=== PATIENT | female | born 1955 | race Caucasian/White ===

== ENCOUNTER 2017-04-14 16:52 | Observation (INO) ==
--- NOTE | 2017-04-14 17:38 | Emergency Department Note ---
Disposition Clinical Impression: Hyperkalemia Renal failure (ARF), acute on chronic Qualifiers: Acute renal failure type: unspecified Chronic kidney disease stage: unspecified stage Qualified Code(s): N17.9 - Acute kidney failure, unspecified Anemia Qualifiers: Anemia type: due to chronic kidney disease Chronic kidney disease stage: unspecified stage Qualified Code(s): N18.9 - Chronic kidney disease, unspecified Disposition: Admitted As Inpatient Condition: Fair Referrals: NO,PCP [Non-Partnered Physician] - Forms: ED Satisfaction Letter Female Urogenital HPI - General Chief complaint: ED Urogenital-Female Stated complaint: "UTI" Time Seen by Provider: 04/14/17 17:11 Source: patient, EMS Limitations: no limitations Nursing Notes Reviewed: Yes Vital Signs Reviewed: Yes - History of Present Illness HPI Narrative: Patient is 10 days of dysuria and urinary frequency and dark and bad smelling urine and was started on Bactrim and is finishing a course right now but does not feel any better. Was sent in by the home health nurse. She denies any fevers or vomiting or confusion. No blood in the urine or stool. No vaginal bleeding or discharge. She has been using Bactrim without adequate improvement. She does have bilateral back pain but worse on the right, she denies any abdominal pain. I did review the previous record. Social history: Does use home oxygen - Related Data Home Medications Medication Instructions Recorded Confirmed Aspirin [Lo-Dose Aspirin EC] 81 mg PO DAILY 04/06/16 04/14/17 Budesonide/Formoterol 80/4.5 2 puff IH BID PRN 04/06/16 04/14/17 [Symbicort] Esomeprazole Magnesium [Nexium] 40 mg PO DAILY 04/06/16 04/14/17 Furosemide [Lasix] 40 mg PO BID 04/06/16 04/14/17 Glimepiride [Amaryl] 4 mg PO QAM 04/06/16 04/14/17 Latanoprost [Xalatan] 1 drop BOTH EYES HS 04/06/16 04/14/17 Simvastatin [Zocor] 40 mg PO HS 04/06/16 04/14/17 SitaGLIPtin [Januvia] 100 mg PO DAILY 04/06/16 04/14/17 Spironolactone [Aldactone] 25 mg PO DAILY 04/06/16 04/14/17 Albuterol Sulfate [Albuterol 2 puff IH Q4H PRN 04/14/17 04/14/17 Inhaler] Citalopram Hydrobromide 40 mg PO HS 04/14/17 04/14/17 [Citalopram HBr] Docusate [Colace] 100 mg PO DAILY 04/14/17 04/14/17 Gabapentin [Neurontin] 600 mg PO HS 04/14/17 04/14/17 Valsartan [Diovan] 80 mg PO DAILY 04/14/17 04/14/17 Allergies Allergy/AdvReac Type Severity Reaction Status Date / Time acetaminophen [From Vicodin] AdvReac Nausea Verified 11/30/15 13:29 hydrocodone [From Vicodin] AdvReac Nausea Verified 11/30/15 13:29 Hydromorphone [From Dilaudid] AdvReac Nausea Verified 11/30/15 13:29 Review of Systems: No blood in the urine or stool, vaginal bleeding or discharge Constitutional: No fever Vision: No blurred vision ENT: No rhinorrhea Respiratory: No cough Allergic: No allergies : No blood in urine GI: No blood in stool Hematologic: No bruising Dermatologic: No skin rash Musculoskeletal: No pain in the extremities Neuro: No numbness of the extremities Past Medical History - Past Medical History Medical history: Reports: COPD, hypertension, other Surgical history: Reports: other Psychiatric history: Reports: no psych history - Social History Smoking Status: Never smoker Smokeless Tobacco Status: No Alcohol use: Reports: none Drug use: Reports: none Physical Exam CONSTITUTIONAL: Alert and oriented X3, well-nourished, well appearing, in no apparent distress HEAD: Normocephalic; atraumatic. EYES: PERRL, no scleral icterus. NOSE: The nose is normal in appearance without rhinorrhea RESP: Normal chest excursion with respiration; breath sounds clear and equal bilaterally; no wheezes, rhonchi, or rales CARD: Regular rhythm, without murmurs, rub or gallop ABD: Non-distended; non-tender, soft,without rigidity, rebound or guarding SKIN: Normal for age and race; warm and dry; no apparent lesions Back: Normal appearance, does have bilateral CVA tenderness but worse on the right - General Limitations: no limitations General appearance: alert, in no apparent distress Course Vital Signs Temperature 98.1 F 04/14/17 16:54 Pulse Rate 78 04/14/17 16:54 Respiratory Rate 18 04/14/17 16:54 Blood Pressure 153/62 04/14/17 16:54 O2 Sat by Pulse Oximetry 99 04/14/17 16:54 Temperature 98.1 F 04/14/17 16:54 Pulse Rate 68 04/14/17 20:59 Respiratory Rate 20 04/14/17 20:59 Blood Pressure 133/56 04/14/17 20:59 O2 Sat by Pulse Oximetry 100 04/14/17 20:59 Oxygen Delivery Oxygen Delivery Nasal Cannula Urogenital-Female - MDM Narrative Medical decision making narrative: Urine catheterization will be done straight catheter urine results are pending. I do not suspect sepsis or any ureteral stone. She may have pyelonephritis. This should be treated as an outpatient. She is hemodynamically stable, alert and oriented, nontoxic in appearance. I did go back and see the patient spoke with her and her . She is reluctant to stay that my concerns for hyperkalemia. She does have an appointment with a services manager in the next several weeks. The patient will be admitted to the hospital. I did review her EKG shows sinus rhythm with a rate of 66 without evidence of hyperkalemia changes as far as the T waves or widened QRS did patient will receive dextrose and insulin and sodium bicarbonate and oral Kayexalate and will be admitted to the hospital. 2045 I did speak with the hospitalist who asked that the potassium be repeated. The IV fluids are still running so will be done at the completion of the IV fluids. This test is ordered. I did speak with Dr. Moya and he will assume care of the patient and follow-up the patient's CT scan also the disposition. Care is transferred to him at this time. 2119 - Medical Records Medical records reviewed: Yes I reviewed the patient's medical records. - Lab Data Lab results reviewed: Yes I reviewed the patient's lab results. Result diagrams: 04/14/17 18:37 04/14/17 21:08 Lab Results 04/14/17 04/14/17 04/14/17 Range/Units 17:13 18:37 18:37 WBC 7.4 (4.3-11.1) K/mcL RBC 3.20 L (3.82-4.97) M/mcL Hgb 9.3 L (11.5-15.4) g/dL Hct 31.2 L (35.3-44.9) % MCV 97.5 (83.0-100.0) fL MCH 29.1 (28.0-33.3) pg MCHC 29.8 L (31.6-35.5) g/dL RDW 12.3 (11.5-14.5) % Plt Count 129 L (140-400) K/mcL MPV 11.9 (9.4-12.4) fL Sodium 141 (136-145) mEq/L Potassium 5.9 H (3.5-4.5) mEq/L Chloride 99 (98-109) mEq/L Carbon Dioxide 37 H (19-29) mEq/L BUN 32 H (7-20) mg/dL Creatinine 1.72 H (0.57-1.11) mg/dL Est GFR ( Amer) 37 L (> 60) Est GFR (Non-Af Amer) 30 L (> 60) BUN/Creatinine Ratio 19 (6-26) Glucose 119 H (70-99) mg/dL Calculated Osmolality 300 (280-300) Calcium 9.4 (8.6-10.8) mg/dL Urine Color Yellow (Yellow) Urine Clarity Clear (Clear) Urine pH 5.5 (5.0-8.0) pH Units Ur Specific [place] 1.015 (1.010-1.025) Urine Protein Negative (Neg-Trace) mg/dL Urine Glucose (UA) Normal (Normal) mg/dL Urine Ketones Negative (Negative) mg/dL Urine Blood Negative (Negative) Urine Nitrite Negative (Negative) Urine Bilirubin Negative (Negative) Urine Urobilinogen Normal (Normal) mg/dL Ur Leukocyte Esterase Negative (Negative) Ur Culture Indicated? NO (NO) 04/14/17 Range/Units 21:08 WBC (4.3-11.1) K/mcL RBC (3.82-4.97) M/mcL Hgb (11.5-15.4) g/dL Hct (35.3-44.9) % MCV (83.0-100.0) fL MCH (28.0-33.3) pg MCHC (31.6-35.5) g/dL RDW (11.5-14.5) % Plt Count (140-400) K/mcL MPV (9.4-12.4) fL Sodium 142 (136-145) mEq/L Potassium 5.8 H (3.5-4.5) mEq/L Chloride 102 (98-109) mEq/L Carbon Dioxide 35 H (19-29) mEq/L BUN 31 H (7-20) mg/dL Creatinine 1.64 H (0.57-1.11) mg/dL Est GFR ( Amer) 39 L (> 60) Est GFR (Non-Af Amer) 32 L (> 60) BUN/Creatinine Ratio 19 (6-26) Glucose 100 H (70-99) mg/dL Calculated Osmolality 301 H (280-300) Calcium 8.9 (8.6-10.8) mg/dL Urine Color (Yellow) Urine Clarity (Clear) Urine pH (5.0-8.0) pH Units Ur Specific [place] (1.010-1.025) Urine Protein (Neg-Trace) mg/dL Urine Glucose (UA) (Normal) mg/dL Urine Ketones (Negative) mg/dL Urine Blood (Negative) Urine Nitrite (Negative) Urine Bilirubin (Negative) Urine Urobilinogen (Normal) mg/dL Ur Leukocyte Esterase (Negative) Ur Culture Indicated? (NO) - Radiology Data Radiology results reviewed: Yes I reviewed the patient's radiology results. Abdomen/Pelvis CT 04/14/17 18:03 IMPRESSION: 1. Unchanged large right diaphragmatic hernia. D/ / Kd Bell MD / Kd Bell MD Interpreting Provider: Kd Bell MD - EKG Data EKG attestation: Yes I reviewed and interpreted this EKG.
[2017-04-14 17:50] LABS: Bilirubin,Urine Negative (Negative); Blood,Urine Negative (Negative); Clarity,Urine Clear (Clear); Color,Urine Yellow (Yellow); Glucose,Urine (UA) Normal (Normal); Ketones,Urine Negative (Negative); Leukocyte Esterase,Urine Negative (Negative); Nitrite,Urine Negative (Negative); PH,Urine 5.5 pH Units (5.0-8.0); Protein,Urine Negative (Neg-Trace); Specific Gravity,Urine 1.015 (1.010-1.025); Urobilinogen,Urine Normal (Normal)
[2017-04-14 18:51] LABS: Hematocrit 31.2 % (35.3-44.9); Hemoglobin 9.3 g/dL (11.5-15.4); Mean Corpuscular HGB Conc 29.8 g/dL (31.6-35.5); Mean Corpuscular Hemoglobin 29.1 pg (28.0-33.3); Mean Corpuscular Volume 97.5 fL (83.0-100.0); Mean Platelet Volume 11.9 fL (9.4-12.4); Platelet Count 129 K/mcL (140-400); Red Cell Distribution Width 12.3 % (11.5-14.5)
[2017-04-14 19:06] LABS: Calcium 9.4 mg/dL (8.6-10.8); Potassium 5.9 mEq/L (3.5-4.5)
[2017-04-14] MEDS ORDERED: 0.9 % Sodium Chloride 1,000 ML IVC ONE (19:11)
[2017-04-14] MEDS ORDERED: 0.9 % Sodium Chloride 1,000 ML ONE (21:16)
[2017-04-14 21:28] LABS: Calcium 8.9 mg/dL (8.6-10.8); Potassium 5.8 mEq/L (3.5-4.5)
[2017-04-14] MEDS ORDERED: *HR* Dextrose 50 % in Water (Syg) 50 ML SYRINGE IVP ONE (21:52)
[2017-04-14] MEDS ORDERED: Insulin Human Regular 10 UNIT in 0.9 % Sodium Chloride 10 ML IV ONE (21:52)
--- NOTE | 2017-04-14 22:15 | Emergency Department Note ---
START Narrative - START START: This patient was signed out to me by Dr. Ge. The patient has acute kidney injury and subsequently found to have hyperkalemia. She was given intravenous fluids without much improvement. I would proceed with admission at this point. She was given Kayexalate, D50, insulin. Stable at the time of admission. She does wear oxygen at home.
[2017-04-14] MEDS ORDERED: Ondansetron 4 MG/2 ML VIAL IVP PRN (23:40)
[2017-04-14] MEDS ORDERED: Naloxone 0.4 MG/ML INJ IVP PRN (23:40)
[2017-04-14] MEDS ORDERED: Acetaminophen 325 MG TABLET PO PRN (23:40)
[2017-04-14] MEDS ORDERED: Dextrose Gel 15 GM PO PRN ×2 (23:45)
[2017-04-14] MEDS ORDERED: Gabapentin 300 MG CAPSULE PO SCH (23:45)
[2017-04-14] MEDS ORDERED: *HR* Dextrose 50 % in Water (Syg) 50 ML SYRINGE IVP PRN (23:45)
[2017-04-14] MEDS ORDERED: D5% in Water 1,000 ML IVC PRN (23:45)
[2017-04-14] MEDS ORDERED: traMADol 50 MG TABLET PO PRN (23:53)
--- NOTE | 2017-04-14 23:57 | Internal Med History&Physical ---
<Albert Cortez - Last Filed: 04/15/17 00:46> Date of Encounter: 04/15/17 Time of Encounter: 23:00 Assessment and Plan (1) Bilateral flank pain Current visit: Yes Status: Acute Patient presents with acute bilateral flank pain which she states is worse on the right side. Patient was diagnosed 10 days ago with a UTI and finished last dose of PO Bactrim today. U/A in ED is not suspicious for infection. Nephrology consult ordered. Retroperitoneal US ordered. Renal diet with daily fluid restriction of 1.5L daily ordered. Monitor I&O and daily weight. (2) Acute hyperkalemia Current visit: Yes Status: Acute Patient presents with acute hyperkalemia. Potassium level is currently 5.8, down from 5.9. Will continue Lasix PO 40 mg BID and monitor follow-up labs. Continuous cardiac telemetry ordered. (3) Dizziness Current visit: Yes Status: Acute Patient reports acute dizziness related to recent UTI. Patient also has history of chronic COPD and CHF. Will continue PO Lasix 40 mg BID. DuoNebs Q4 ordered. Supplemental O2 with continuous SpO2 monitoring ordered. Patient to be placed as falls precautions/up with assist/bed rest with bedside commode with assist status due to current dizziness. Patient instructed to use her call light and not attempt to get out of bed on her own. (4) CKD (chronic kidney disease) stage 3, GFR 30-59 ml/min Current visit: Yes Status: Chronic Patient presents with chronic kidney disease stage III with current GFR of 32. Nephrology consult ordered. Retroperitoneal US ordered. Renal diet with daily fluid restriction of 1.5L daily ordered. Monitor I&O and daily weight. (5) COPD (chronic obstructive pulmonary disease) Current visit: Yes Status: Chronic Patient presents with history of chronic obstructive pulmonary disease. Supplemental O2 ordered with titration if SPO2 less than 92%. BiPAP ordered HS. Continuous SpO2 monitoring ordered. Qualifiers: COPD type: emphysema Qualified Code(s): J43.9 - Emphysema, unspecified (6) CHF (congestive heart failure) Current visit: Yes Status: Chronic Patient presents with history of chronic congestive heart failure. Currently patient has bilateral pedal edema. Will continue PO Lasix 40 mg BID, monitor I&O , and daily weight. Fluid restriction of 1.5L daily. Qualifiers: Congestive heart failure type: unspecified congestive heart failure type Qualified Code(s): I50.9 - Heart failure, unspecified (7) Hypertension Current visit: Yes Status: Chronic Patient presents with history of chronic hypertension. Will monitor patient and vital signs. Will continue patient's Valsartan and Spironolactone. Qualifiers: Hypertension type: essential hypertension Qualified Code(s): I10 - Essential (primary) hypertension (8) Anemia Current visit: Yes Status: Chronic Patient presents with history of chronic anemia. We will order anemia workup ( folate, iron, and B12). Qualifiers: Anemia type: due to chronic kidney disease Chronic kidney disease stage: unspecified stage Qualified Code(s): N18.9 - Chronic kidney disease, unspecified; D63.1 - Anemia in chronic kidney disease (9) Diabetes Current visit: Yes Status: Chronic Patient presents with history of chronic diabetes controlled by oral hyperglycemics. We will hold patient's oral hyperglycemic medications and order low-dose insulin correction sliding scale and blood glucose monitoring ACHS. 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 Heparin 5,000 units SQ Q8 ordered. Internal Medicine - H&P: HPI Chief complaint: Bilateral flank pain/Worse on right side Admitted From: Emergency Dept Plans for Post Hospital Care: Home History of present illness: Mrs. Cox is a 61 year old female presents from the ED with chief complaint of bilateral flank pain which she describes as being worse on the right side. Patient was recently diagnosed with UTI and sent home on PO Bactrim. She reports she finished her last dose today but still feels as though she has UTI due to flank pain. Patient denies history of kidney stones. Patient reports her urine is still dark and foul-smelling. Initial urinalysis and ED is not suspicious of urinary infection. Patient currently denies any fevers, vomiting , nausea, confusion, burning with urination, unusual blood in urine or stool, abdominal pain, vaginal bleeding, or discharge. patient has a history of CHF , COPD, diabetes controlled with oral hypolycemics, hypertension, and CKD stage III. Patient is currently hyperkalemic with potassium level of 5.8. Patient is at moderate risk for reduced renal function based on current symptomatology and GFR of 32. Patient will be placed as observation status with orders for nephrology consult, retroperitoneal US, anemai work-up due to present anemia status, 1-View CXR, DuoNebs Q4 for COPD, continuous cardiac telemetry due to current hyperkalemia, and supplemental O2 with titration and continuous SpO2 monitoring. Patient will also have ordered BiPap for apnea HS. Follow-up labs ordered. Patient to be monitored closely. Time spent with patient >40 minutes. Past Med Surg Social Fam HX - Past Medical History Source: patient Medical history: CHF, COPD, diabetes, fibromyalgia, hyperlipidemia, hypertension Psychiatric history: depression - Past Surgical History Surgical History: other (Right knee repair, EGD, tonsillectomy, colonoscopy) - Social History Smoking Status: Never smoker Smokeless Tobacco Status: No Alcohol use: none Drug use: none Current living situation: Home, With Family Activity Level: Independent ambulation Recent Out of Country Travel Within the Last 8 Weeks: No Exposure or Possible Exposure to Illness During Travel: No - Family History Mother Adopted: No Race: Family Member Ethnicity: Non- Living Status: Age at : 72 Cause of : CHF Hx Family Cardiac Disorders: Yes (HTN, CHF) Hx Family Endocrine Disorder: Yes (DM) Father Race: Family Member Ethnicity: Non- Living Status: Age at : 70 Cause of : [place] Hx Family Cardiac Disorders: Yes (NV, HTN) Brother Race: Family Member Ethnicity: Non- Living Status: Still Living Hx Family GI Disorders: Yes (Crohn's disease) Sister Race: Family Member Ethnicity: Non- Living Status: Age at : 60 Cause of : Massive [place] Hx Family Cardiac Disorders: Yes ([place], HTN) Internal Medicine - H&P: Meds Aspirin [Lo-Dose Aspirin EC] 81 mg PO DAILY 04/06/16 [History] Budesonide/Formoterol 80/4.5 [Symbicort] 2 puff IH BID PRN 04/06/16 [History] Esomeprazole Magnesium [Nexium] 40 mg PO DAILY 04/06/16 [History] Furosemide [Lasix] 40 mg PO BID 04/06/16 [History] Glimepiride [Amaryl] 4 mg PO QAM 04/06/16 [History] Latanoprost [Xalatan] 1 drop BOTH EYES HS 04/06/16 [History] Simvastatin [Zocor] 40 mg PO HS 04/06/16 [History] SitaGLIPtin [Januvia] 100 mg PO DAILY 04/06/16 [History] Spironolactone [Aldactone] 25 mg PO DAILY 04/06/16 [History] Albuterol Sulfate [Albuterol Inhaler] 2 puff IH Q4H PRN 04/14/17 [History] Citalopram Hydrobromide [Citalopram HBr] 40 mg PO HS 04/14/17 [History] Docusate [Colace] 100 mg PO DAILY 04/14/17 [History] Gabapentin [Neurontin] 600 mg PO HS 04/14/17 [History] Valsartan [Diovan] 80 mg PO DAILY 04/14/17 [History] Allergies hydrocodone [From Vicodin] Adverse Reaction (Verified 11/30/15 13:29) Nausea Hydromorphone [From Dilaudid] Adverse Reaction (Verified 11/30/15 13:29) Nausea All Systems PM: A 10-system review of systems was performed and is negative for pertinent findings except as documented above in the HPI. - Constitutional Constitutional: no chills, no fever(s), no night sweats - EENT Eyes: no change in vision, no discharge, no pain, no photophobia Ears: no ear discharge, no ear pain, no tinnitus Nose, mouth and throat: no dysphagia, no nasal discharge, no neck pain, no sore throat - Breasts Breasts: as per HPI - Cardiovascular Cardiovascular ROS IM: no chest pain, no diaphoresis, no dyspnea, no lightheadedness, no palpitations, no syncope - Respiratory Respiratory: as per HPI, dyspnea - Gastrointestinal Gastrointestinal: no abdominal pain, no diarrhea, no hematemesis, no hematochezia, no melena, no nausea, no vomiting - Genitourinary Genitourinary: as per HPI, flank pain (Bilateral with worse pain on right side) , other (Dark and foul-smelling urine) Menstruation: as per HPI - Musculoskeletal Musculoskeletal ROS IM: no numbness, no tingling - Integumentary Integumentary IM: no rash, no unusual bruising - Neurological Neurological ROS: no confusion, no convulsions, no focal weakness, no numbness, no tingling, no tremor(s) - Psychiatric Psychiatric: as per HPI - Endocrine Endocrine IM: as per HPI - Hematologic/Lymphatic Hematologic/Lymphatic: no easy bruising - Allergic/Immunologic Allergic/Immunologic: as per HPI - Constitutional Vitals: Temp Pulse Resp BP Pulse Ox 98.1 F 79 17 118/73 98 04/14/17 23:11 04/14/17 23:11 04/14/17 23:11 04/14/17 23:11 04/14/17 23:11 General appearance: Present: cooperative, A&O X 3, morbidly obese, pleasant, answers questions appropriately - Head Head exam: Present: atraumatic, normocephalic - Eye Eye exam: Present: PERRL, conjuntiva pink, sclera anicteric Pupils: Present: PERRL - ENT ENT exam: Present: normal exam, normal external ear exam - Neck Neck exam general surgery: Present: supple, trachea midline. Absent: lymphadenopathy - Respiratory Respiratory exam: Present: CTAB. Absent: accessory muscle use, rales, rhonchi, wheezes - Cardiovascular Cardiovascular exam: Present: RRR, +S1, +S2. Absent: diastolic murmur, gallop, rubs, systolic murmur - GI/Abdominal GI/Abdominal exam: Present: hernia, normal bowel sounds, soft, no peritoneal signs. Absent: distended, tenderness - Rectal Rectal exam: Present: deferred - Additional comments: exam deferred. - Extremities Exam Extremities exam: Present: pedal edema (Bilateral), warm, radial pulses palpable and symetrical. Absent: calf tenderness, cyanotic - Back Exam Back exam: Present: CVA tenderness (L), CVA tenderness (R), normal inspection - Neurological Exam Neurological exam: Present: CN II-XII intact, oriented X3, no focal deficits. Absent: pronater drift, facial droop, speech deficit - Psychiatric Psychiatric exam: Present: normal affect, normal mood - Skin Skin exam: Present: dry, intact Internal Med - H&P Results - Labs CBC & Chem 7: 04/14/17 18:37 04/14/17 21:08 - EKG Data EKG shows normal: sinus rhythm - EKG Data Prior EKG available for review: no EKG comments: 04/15/17 00:26 EKG dated 04/14/17 shows sinus rhythm with marked left axis deviation and low QRS voltage in precordial leads. - Diagnostic Studies CT scan - abdomen Additional comments: Impressions Abdomen/Pelvis CT 04/14/17 18:03 IMPRESSION: 1. Unchanged large right diaphragmatic hernia. D/ / Kd Bell MD / Kd Bell MD Interpreting Provider: Kd Bell MD <Ava Lamas - Last Filed: 04/15/17 08:21> Date of Encounter: 04/15/17 Internal Medicine - H&P: HPI History of present illness: Ms. Cox is a 61 year old female All Systems PM: A 10-system review of systems was performed and is negative for pertinent findings except as documented above in the HPI. - Constitutional Vitals: Temp Pulse Resp BP Pulse Ox 98.0 F 79 16 121/73 98 04/15/17 08:12 04/15/17 08:12 04/15/17 08:12 04/15/17 08:12 04/15/17 08:12 Internal Med - H&P Results - Labs CBC & Chem 7: 04/15/17 04:47 04/15/17 04:47 Labs: Short CBC 04/15/17 Range/Units 04:47 WBC 8.0 (4.3-11.1) K/mcL Hgb 9.0 L (11.5-15.4) g/dL Hct 30.3 L (35.3-44.9) % Plt Count 124 L (140-400) K/mcL Neutrophils # 5.9 (1.6-8.9) K/mcL BMP 04/15/17 04:47 Sodium 141 Potassium 5.7 H Chloride 102 Carbon Dioxide 35 H BUN 29 H Creatinine 1.59 H Glucose 103 H Calcium 9.2 - Impressions ITS Impressions Chest X-Ray 04/15/17 23:48 IMPRESSION: Large right diaphragmatic hernia appears increased in size from 03/03/2017. D/ / James Garcia MD / James Garcia MD Interpreting Provider: James Garcia MD - Attending Attestation I examined this patient and my medical decision-making was reviewed with the PRODUCTION STATISTICAL CLERK/PA/Advanced Practice Nurse/Resident Physician. I agree with the documented findings, disposition and treatment plan as described
[2017-04-15] MEDS: Ipratropium/Albuterol Neb 3 ML IH SCH ×6 (03:46→20:04)
[2017-04-15 05:10] LABS: Basophils # 0.1 K/mcL (0.0-0.2); Basophils % 0.6 %; Hematocrit 30.3 % (35.3-44.9); Immature Granulocytes % 0.3 % (0-4); Lymphocytes # 1.4 K/mcL (0.6-4.6); Lymphocytes % 17.5 %; Mean Corpuscular HGB Conc 29.7 g/dL (31.6-35.5); Mean Corpuscular Volume 97.7 fL (83.0-100.0); Mean Platelet Volume 11.8 fL (9.4-12.4); Monocytes # 0.7 K/mcL (0.0-1.3); Monocytes % 8.4 %; Neutrophils # 5.9 K/mcL (1.6-8.9); Platelet Count 124 K/mcL (140-400); Red Cell Distribution Width 12.3 % (11.5-14.5); Segmented Neutrophils % 73.2 %
[2017-04-15 05:16] LABS: INR 1.1; Prothrombin Time 11.7 Seconds (9.4-12.1)
[2017-04-15 05:19] LABS: Activated Partial Thrombo Time 30.1 Seconds (26.0-36.0)
[2017-04-15 05:26] LABS: Calcium 9.2 mg/dL (8.6-10.8); Magnesium 2.1 mg/dL (1.6-2.6); Potassium 5.7 mEq/L (3.5-4.5)
[2017-04-15 05:27] LABS: % Iron Saturation 25 % (15-50); Iron 64 mcg/dL (50-170); Transferrin 186 mg/dL (180-382)
[2017-04-15] MEDS: *HR* Heparin 5,000 UNIT/ML VIAL SQ SCH ×3 (06:35→21:40)
[2017-04-15] MEDS ORDERED: Spironolactone 25 MG TABLET PO SCH (09:00)
[2017-04-15] MEDS ORDERED: Furosemide 20 MG TABLET PO SCH (09:00)
[2017-04-15] MEDS: Insulin LISPRO 300 UNITS/3 ML VIAL SQ SCH ×3 (09:12→16:28)
[2017-04-15] MEDS: Aspirin Enteric Coated 81 MG Tablet PO SCH (09:13)
[2017-04-15] MEDS: Valsartan 80 MG TABLET PO SCH (09:13)
[2017-04-15] MEDS: Pantoprazole 40 MG VIAL IVP SCH (09:56)
--- NOTE | 2017-04-15 10:43 | Nephrology Consult Note ---
Date of Encounter: 04/15/17 Time of Encounter: 10:42 Assessment and Plan (1) CKD (chronic kidney disease) stage 3, GFR 30-59 ml/min Current Visit: Yes Status: Chronic 61F hx of CKD Cause is multifactorial: hx of multiple UTI, family hx of CKD, decrease renal perfusion (anemia), Diabetes Mellitus Developed CKD in the past six months. PRevious Kidney US negative for scarring: repeat ordered CT abdomen shows left nonobstructive nephrolithiasis Denies NSAID use hx of pulmonary HTN on spironolactone and lasix presented hyperkalemic K 5.2 Urinalysis negative for infection Plan: Patient has underlying CKD from multiple reasons stated above. She is likley hyperkalemic from increase her spironolactone dose. Recommend d/c spironolactone for now. Mild worsening of kidney function however since hospitalization Scr is trending down. This may be due to being on bactrim for UTI treatment as bactrim can decrease clearance of Scr. Recommend following BMP. Patient may need different diuretic or treatment for pulmonary HTN to prevent future hyperkalemia. Likley not UTI as urinalysis was negative, and less likely pyelonephritis. May repeat urinalysis and order with microscopy. Recommend strict I/O. Continue lasix, renal diet. Continue renal protective strategy, avoid NSAID, contrast, bactrim. (2) Acute hyperkalemia Current Visit: Yes Status: Acute (3) Bilateral flank pain Current Visit: Yes Status: Acute (4) Anemia Current Visit: Yes Status: Chronic Qualifiers: Anemia type: due to chronic kidney disease Chronic kidney disease stage: stage 3 (moderate) Qualified Code(s): N18.3 - Chronic kidney disease, stage 3 (moderate); D63.1 - Anemia in chronic kidney disease (5) COPD (chronic obstructive pulmonary disease) Current Visit: Yes Status: Chronic Qualifiers: COPD type: emphysema Emphysema type: unspecified Qualified Code(s): J43.9 - Emphysema, unspecified (6) Diabetes Current Visit: Yes Status: Chronic Qualifiers: Diabetes mellitus type: type 2 Diabetes mellitus complication status: with kidney complications Diabetes mellitus complication detail: with chronic kidney disease Diabetes mellitus mcfp insulin use: without mcfp use Chronic kidney disease stage: stage 3 (moderate) Qualified Code(s): E11.22 - Type 2 diabetes mellitus with diabetic chronic kidney disease; N18.3 - Chronic kidney disease, stage 3 (moderate) History of Present Illness - Reason for Consult Consult date: 04/14/17 Chronic Kidney Disease, hyperkalemia - Chief Complaint flank pain - History of Present Illness 61F hx of recurrent UTI, pulmonary HTN, CKD,CHF,COPD, DM presented with cc of flank pain. She was being treated with bactrim outpatient for UTI. Was found to be in Acute on chronic renal failure and hyperkalemia. Patient is treated with spironolactone and lasix for pulmonary HTN and recently her dose was increased. She has urinary frequency, denies blood in urine, but states urine has been dark brown. Has extensive family history of kidney stones CT abdomen shows no evidence of hydronephrosis, and patient has multiple nonobstructing kidney stones in the left. Past Med Surg Social Fam HX - Past Medical History Medical history: CHF, COPD, diabetes, fibromyalgia, hyperlipidemia, hypertension Psychiatric history: depression - Past Surgical History Surgical History: other (Right knee repair, EGD, tonsillectomy, colonoscopy) - Social History Smoking Status: Never smoker Smokeless Tobacco Status: No Alcohol use: none Drug use: none - Family History Father Race: Family Member Ethnicity: Non- Living Status: Age at : 70 Cause of : DC Hx Family Cardiac Disorders: Yes (DC, HTN) Brother Race: Family Member Ethnicity: Non- Living Status: Still Living Hx Family GI Disorders: Yes (Crohn's disease) Sister Race: Family Member Ethnicity: Non- Living Status: Age at : 60 Cause of : Massive DC Hx Family Cardiac Disorders: Yes (DC, HTN) Mother Adopted: No Race: Family Member Ethnicity: Non- Living Status: Age at : 72 Cause of : CHF Hx Family Cardiac Disorders: Yes (HTN, CHF) Hx Family Respiratory Disorders: Yes (COPD) Hx Family Cancer: Yes (skin) Hx Family GI Disorders: No Hx Family Endocrine Disorder: Yes (DM) Hx Family Neuromuscular Disorders: No Hx Family Neurologic Disorders: Yes (CVA with rt sided weakness) Hx Family HEENT Disorders: Yes ([place]) Hx Family Autoimmune Disorders: No Hx Family Medical Disorders: Yes (DVT) Medications and Allergies Aspirin [Lo-Dose Aspirin EC] 81 mg PO DAILY 04/06/16 [History] Budesonide/Formoterol 80/4.5 [Symbicort] 2 puff IH BID PRN 04/06/16 [History] Esomeprazole Magnesium [Nexium] 40 mg PO DAILY 04/06/16 [History] Furosemide [Lasix] 40 mg PO BID 04/06/16 [History] Glimepiride [Amaryl] 4 mg PO QAM 04/06/16 [History] Latanoprost [Xalatan] 1 drop BOTH EYES HS 04/06/16 [History] Simvastatin [Zocor] 40 mg PO HS 04/06/16 [History] SitaGLIPtin [Januvia] 100 mg PO DAILY 04/06/16 [History] Spironolactone [Aldactone] 25 mg PO DAILY 04/06/16 [History] Albuterol Sulfate [Albuterol Inhaler] 2 puff IH Q4H PRN 04/14/17 [History] Citalopram Hydrobromide [Citalopram HBr] 40 mg PO HS 04/14/17 [History] Docusate [Colace] 100 mg PO DAILY 04/14/17 [History] Gabapentin [Neurontin] 600 mg PO HS 04/14/17 [History] Valsartan [Diovan] 80 mg PO DAILY 04/14/17 [History] Allergies hydrocodone [From Vicodin] Adverse Reaction (Verified 11/30/15 13:29) Nausea Hydromorphone [From Dilaudid] Adverse Reaction (Verified 11/30/15 13:29) Nausea Review of Systems All Systems review (narrative): Constitutional: Denies fever, chills HEENT: Denies headache, vision changes, neck pain, sore throat, rhinorrhea Heart: Denies chest pain palpitations Lungs: Denies shortness of breath cough Abdomen: Denies abdominal pain nausea vomiting diarrhea Kidney: reports flank pain,dark brown urine. Denies blood in urine. Extremities: report lower extremity swelling, pain Neuro: Denies numbness, and tingling Exam - Vital Signs Vital signs: Initial Vital Signs Temp Pulse Resp BP Pulse Ox 98.1 F 78 18 153/62 99 04/14/17 16:54 04/14/17 16:54 04/14/17 16:54 04/14/17 16:54 04/14/17 16:54 Vital Signs - Last 8 Hours Temp Pulse Resp BP Pulse Ox 04/15/17 08:00 98.0 F 79 16 121/73 98 04/15/17 07:49 20 98 04/15/17 05:17 97.9 F 82 18 122/76 92 04/15/17 03:48 16 96 Intake and Output 04/14/17 04/15/17 04/15/17 23:59 07:59 15:59 Intake Total 999 / 1999 Balance 999 / 1999 Intake: IV Fluids 1000 / 1000 0.9 % Sodium Chloride 1, 1000 / 1000 000 ML As .[facility] Rx#:[id number] Other: Weight 108.862 kg 108.9 kg Blood Glucose* 100 104 Patient Weight 04/15/17 23:59 Weight 108.9 kg - General Appearance General appearance: well-developed, well-nourished, appears started age, obese EENT: PERRL, mucous membranes moist Neck: no JVD, supple Additional Comments: diminished lung sound at bases. Cardiology: edema (2+ chronic), regular rate, regular rhythm, normal S1, normal S2 Gastrointestinal: normoactive bowel sounds, no tenderness, no guarding, no organomegaly, no masses Integumentary: no rash, warm and dry Neurologic: no focal deficit, no asterixis, alert and oriented x3 Musculoskeletal: no deformities, no erythema, no cyanosis, no clubbing Psychiatric: mood/affect appropriate, cooperative Results - Lab Results 04/15/17 04:47 04/15/17 04:47 Most recent lab results Calcium 9.2 mg/dL (8.6-10.8) 04/15/17 04:47 Magnesium 2.1 mg/dL (1.6-2.6) 04/15/17 04:47 - Image Kidney/bladder ultrasound: pending Consult Discharge Plan - Plan Referrals: Albert Lema DO [Primary Care Provider] -
[2017-04-15] MEDS ORDERED: traMADol 50 MG TABLET PO PRN (11:41)
[2017-04-15 13:13] LABS: Bilirubin,Urine Negative (Negative); Blood,Urine Small (Negative); Clarity,Urine Cloudy (Clear); Color,Urine Yellow (Yellow); Glucose,Urine (UA) Normal (Normal); Ketones,Urine Negative (Negative); Leukocyte Esterase,Urine Small (Negative); Nitrite,Urine Negative (Negative); PH,Urine 5.5 pH Units (5.0-8.0); Protein,Urine Negative (Neg-Trace); Specific Gravity,Urine 1.014 (1.010-1.025); Urobilinogen,Urine Normal (Normal)
[2017-04-15 13:15] LABS: Bacteria,Urine None Seen per hpf (None-Few); RBC,Urine 0-3 per hpf (0-3); Squamous Epithelial Cell,Urine Many per lpf (None-Few)
[2017-04-15 13:23] LABS: Hyaline Casts,Urine Many per lpf (None-Few)
[2017-04-15 14:24] LABS: Calcium 9.2 mg/dL (8.6-10.8); Potassium 5.2 mEq/L (3.5-4.5)
--- NOTE | 2017-04-15 15:25 | Internal Med Progress Note ---
<Marilee Harrison - Last Filed: 04/15/17 15:23> Date of Encounter: 04/15/17 Time of Encounter: 15:23 - Assessment and plan (1) Bilateral flank pain Current Visit: Yes Status: Acute Assessment and plan: Patient presents with acute bilateral flank pain which she states is chronic. Patient was diagnosed 10 days ago with a UTI and finished last dose of PO Bactrim yesterday. Nephrology stated that UTI is unlikely as urinalysis was negative, and less likely pyelonephritis. CT of abdomen showed only unchanged large right diaphragmatic hernia. Chest x-ray showed the diaphragmatic hernia. Retroperitoneal US ordered. Renal diet with daily fluid restriction of 1.5L daily ordered. Monitor I&O and daily weight. (2) Acute hyperkalemia Current Visit: Yes Status: Acute Assessment and plan: Potassium is 5.2, trending down. Patient has underlying CKD. Spironolactone discontinued per nephrology's recommendation. Most likely hyperkalemic because of increased spironolactone dose. May repeat urinalysis and order with microscopy. Recommend strict I/O. Continue lasix, renal diet. Continue renal protective strategy, avoid NSAID, contrast, bactrim. (3) Dizziness Current Visit: Yes Status: Acute Assessment and plan: Patient reported acute dizziness related to her recent UTI but does not currently have dizziness. She has a history of chronic COPD and CHF. She is on 2 L of oxygen. Patient to be placed as falls precautions/up with assist/bed rest with bedside commode with assist status due to current dizziness. Patient instructed to use her call light and not attempt to get out of bed on her own. (4) CKD (chronic kidney disease) stage 3, GFR 30-59 ml/min Current Visit: Yes Status: Chronic Assessment and plan: Chronic kidney disease stage III with current GFR of 32. Retroperitoneal US ordered. Renal diet with daily fluid restriction of 1.5L daily ordered. Monitor I&O and daily weight. Nephrology recommended to avoid, contrast, Bactrim, and to discontinue spironolactone. (5) COPD (chronic obstructive pulmonary disease) Current Visit: Yes Status: Chronic Assessment and plan: Patient has history of COPD. She is currently on supplemental oxygen. BiPAP ordered for ordered. Qualifiers: COPD type: emphysema Emphysema type: unspecified Qualified Code(s): J43.9 - Emphysema, unspecified (6) CHF (congestive heart failure) Current Visit: Yes Status: Chronic Assessment and plan: Patient presents with history of chronic heart failure. I/O, weight, fluid restriction diet will be closely observed. Qualifiers: Congestive heart failure type: unspecified congestive heart failure type Qualified Code(s): I50.9 - Heart failure, unspecified (7) Hypertension Current Visit: Yes Status: Chronic Assessment and plan: History of hypertension, will monitor patient and vitals. Qualifiers: Hypertension type: essential hypertension Qualified Code(s): I10 - Essential (primary) hypertension (8) Anemia Current Visit: Yes Status: Chronic Assessment and plan: Patient has a chronic anemia, currently is 9. Folate ordered because it is currently 4.5. Qualifiers: Anemia type: due to chronic kidney disease Chronic kidney disease stage: stage 3 (moderate) Qualified Code(s): N18.3 - Chronic kidney disease, stage 3 (moderate); D63.1 - Anemia in chronic kidney disease (9) Diabetes Current Visit: Yes Status: Chronic Assessment and plan: Chronic diabetes controlled by oral hyperglycemics. We will hold patient's oral hyperglycemic medications and order low-dose insulin correction sliding scale and blood glucose monitoring ACHS. Qualifiers: Diabetes mellitus type: type 2 Diabetes mellitus complication status: with kidney complications Diabetes mellitus complication detail: with chronic kidney disease Diabetes mellitus longterm insulin use: without longterm use Chronic kidney disease stage: stage 3 (moderate) Qualified Code(s): E11.22 - Type 2 diabetes mellitus with diabetic chronic kidney disease; N18.3 - Chronic kidney disease, stage 3 (moderate) (10) DVT prophylaxis Current Visit: Yes Status: Acute Assessment and plan: Current bed rest status. Heparin 5,000 units SQ Q8 ordered. - Subjective Interval history: Patient is lying in bed comfortably watching television. She states that she is no chest pain, shortness of breath, dysuria, vaginal discharge, foul-smelling urine, dizziness, lightheaded. She is asking when she can be discharged. She has no complaints. - Constitutional Vitals: Temp Pulse Resp BP Pulse Ox 97.9 F 69 18 106/61 99 04/15/17 15:12 04/15/17 15:12 04/15/17 15:12 04/15/17 15:12 04/15/17 15:12 General appearance: Present: cooperative, A&O X 3, morbidly obese, pleasant, answers questions appropriately - Head Head exam: Present: atraumatic - ENT ENT exam: Present: mucous membranes moist - Neck Neck exam general surgery: Present: supple, trachea midline. Absent: tenderness , thyromegaly - Respiratory Respiratory exam: Present: CTAB. Absent: accessory muscle use, respiratory distress, wheezes - Cardiovascular Cardiovascular exam: Present: RRR, +S1, +S2. Absent: clicks - GI/Abdominal GI/Abdominal exam: Present: normal bowel sounds, soft, splenomegaly, tenderness. Absent: distended, guarding Additional comments: stated left upper quadrant tenderness is chronic - Extremities Exam Extremities exam: Present: calf tenderness, pedal edema, radial pulses palpable and symetrical. Absent: mottling Additional comments: Chronic Edema of lower extremities bilaterally - Back Exam Back exam: Present: tenderness Additional comments: Chronic back tenderness - Skin Skin exam: Present: dry, intact Internal Medicine: Result - Labs CBC & Chem 7: 04/15/17 04:47 04/15/17 13:53 Labs: Short CBC 04/15/17 Range/Units 04:47 WBC 8.0 (4.3-11.1) K/mcL Hgb 9.0 L (11.5-15.4) g/dL Hct 30.3 L (35.3-44.9) % Plt Count 124 L (140-400) K/mcL Neutrophils # 5.9 (1.6-8.9) K/mcL BMP 04/15/17 04/15/17 04:47 13:53 Sodium 141 142 Potassium 5.7 H 5.2 H Chloride 102 101 Carbon Dioxide 35 H 35 H BUN 29 H 30 H Creatinine 1.59 H 1.88 H Glucose 103 H 129 H Calcium 9.2 9.2 Urine 04/15/17 Range/Units 12:58 Urine Color Yellow (Yellow) Urine Clarity Cloudy A (Clear) Urine pH 5.5 (5.0-8.0) pH Units Ur Specific [place] 1.014 (1.010-1.025) Urine Protein Negative (Neg-Trace) mg/dL Urine Glucose (UA) Normal (Normal) mg/dL - ABG Interpretation ABG results: PT/INR, D-dimer PT 11.7 Seconds (9.4-12.1) 04/15/17 04:47 - Impressions Impressions Chest X-Ray 04/15/17 23:48 IMPRESSION: Large right diaphragmatic hernia appears increased in size from 03/03/2017. D/ / James Garcia MD / James Garcia MD Interpreting Provider: James Garcia MD Consult Discharge Plan - Plan Referrals: Albert Lema DO [Primary Care Provider] - <[email or web address] - Last Filed: 04/15/17 18:23> Date of Encounter: 04/15/17 - Constitutional Vitals: Temp Pulse Resp BP Pulse Ox 97.9 F 69 18 106/61 98 04/15/17 15:12 04/15/17 15:12 04/15/17 16:09 04/15/17 15:12 04/15/17 16:09 Internal Medicine: Result - Labs CBC & Chem 7: 04/15/17 04:47 04/15/17 13:53 Labs: Short CBC 04/15/17 Range/Units 04:47 WBC 8.0 (4.3-11.1) K/mcL Hgb 9.0 L (11.5-15.4) g/dL Hct 30.3 L (35.3-44.9) % Plt Count 124 L (140-400) K/mcL Neutrophils # 5.9 (1.6-8.9) K/mcL BMP 04/15/17 04/15/17 04:47 13:53 Sodium 141 142 Potassium 5.7 H 5.2 H Chloride 102 101 Carbon Dioxide 35 H 35 H BUN 29 H 30 H Creatinine 1.59 H 1.88 H Glucose 103 H 129 H Calcium 9.2 9.2 Urine 04/15/17 Range/Units 12:58 Urine Color Yellow (Yellow) Urine Clarity Cloudy A (Clear) Urine pH 5.5 (5.0-8.0) pH Units Ur Specific [place] 1.014 (1.010-1.025) Urine Protein Negative (Neg-Trace) mg/dL Urine Glucose (UA) Normal (Normal) mg/dL - ABG Interpretation ABG results: PT/INR, D-dimer PT 11.7 Seconds (9.4-12.1) 04/15/17 04:47 - Impressions Impressions Chest X-Ray 04/15/17 23:48 IMPRESSION: Large right diaphragmatic hernia appears increased in size from 03/03/2017. D/ / James Garcia MD / James Garcia MD Interpreting Provider: James Garcia MD - Attending Attestation I examined this patient and my medical decision-making was reviewed with the Resident Physician, Dr Harrison. I agree with the documented findings, disposition and treatment plan as described except to the extent set forth below. atient reports no changes in urinat urination. Denies dysuria and hematuria. On exam she is morbidly obese,, in no acute distress. Abdomen isSoft and nontender. Plan: Stop Bactrim. We will give a bolus of normal saline. Stop Lasix. Check BMP in the morning.
[2017-04-15] MEDS: 0.9 % Sodium Chloride 1,000 ML IVC SCH (15:59)
[2017-04-15] MEDS ORDERED: Folic Acid 1 MG TABLET PO SCH (16:30)
--- NOTE | 2017-04-15 17:41 | Electrocardiograph Report ---
[address] [address] Test Date: 2017-04-14 Pat Name: Carmen Cox Department: 102 Room: 2A33 Gender: F Performance Test Consultant: : 1955 Requested By: Pastor Ge Order Number: [id number] Reading MD: Ria Gama Measurements Intervals [place] Rate: 66 P: 93 AR: 180 QRS: -34 QRSD: 98 T: 58 QT: 350 QTc: 363 Interpretive Statements SINUS RHYTHM MARKED LEFT AXIS DEVIATION [QRS AXIS < -30] LOW QRS VOLTAGE IN PRECORDIAL LEADS [QRS DEFLECTION < 1.0 mV IN CHEST LEADS] Electronically Signed On 04-15-2017 17:39:34 EDT by Ria Gama
[2017-04-15] MEDS ORDERED: Latanoprost 2.5 ML BOTTLE BOTH EYES SCH (21:00)
[2017-04-15] MEDS ORDERED: Insulin LISPRO 300 UNITS/3 ML VIAL SQ SCH (21:00)
[2017-04-15] MEDS ORDERED: Gabapentin 300 MG CAPSULE PO SCH (21:00)
[2017-04-16] MEDS: Ipratropium/Albuterol Neb 3 ML IH SCH ×4 (00:16→11:34)
[2017-04-16] MEDS: 0.9 % Sodium Chloride 1,000 ML IVC SCH (04:37)
[2017-04-16] MEDS: *HR* Heparin 5,000 UNIT/ML VIAL SQ SCH (06:24)
[2017-04-16 06:57] LABS: Basophils % 0.5 %; Hematocrit 27.2 % (35.3-44.9); Hemoglobin 8.3 g/dL (11.5-15.4); Immature Granulocytes % 0.1 % (0-4); Immature Platelets 10.4 % (1.1-6.1); Lymphocytes # 1.4 K/mcL (0.6-4.6); Lymphocytes % 18.9 %; Mean Corpuscular HGB Conc 30.5 g/dL (31.6-35.5); Mean Corpuscular Hemoglobin 30.2 pg (28.0-33.3); Mean Corpuscular Volume 98.9 fL (83.0-100.0); Mean Platelet Volume 12.7 fL (9.4-12.4); Monocytes # 0.6 K/mcL (0.0-1.3); Neutrophils # 5.4 K/mcL (1.6-8.9); Platelet Count 111 K/mcL (140-400); Red Blood Count 2.75 M/mcL (3.82-4.97); Red Cell Distribution Width 12.6 % (11.5-14.5); Segmented Neutrophils % 72.5 %
[2017-04-16 07:03] LABS: Albumin 3.3 g/dL (3.5-5.0); Albumin/Globulin Ratio 0.9 (1.1-2.2); Bilirubin,Total 0.3 mg/dL (0.2-1.2); Calcium 8.7 mg/dL (8.6-10.8); Globulin 3.5 g/dL (2.4-3.5); Potassium 4.9 mEq/L (3.5-4.5); Total Protein 6.8 g/dL (6.0-8.3)
[2017-04-16 07:34] LABS: Platelet Estimate Slight Decrease (Normal)
[2017-04-16] MEDS: Insulin LISPRO 300 UNITS/3 ML VIAL SQ SCH ×2 (09:29→11:39)
[2017-04-16] MEDS: Valsartan 80 MG TABLET PO SCH (09:43)
[2017-04-16] MEDS: Pantoprazole 40 MG VIAL IVP SCH (09:43)
[2017-04-16] MEDS: Aspirin Enteric Coated 81 MG Tablet PO SCH (09:43)
--- NOTE | 2017-04-16 10:04 | Discharge Summary ---
<Marilee Harrison - Last Filed: 04/16/17 11:05> Date of Encounter: 04/16/17 Time of Encounter: 10:01 - Discharge Diagnosis (1) Bilateral flank pain Priority: Primary Status: Acute Comments: Chronic bilateral flank tenderness. Ultrasound of kidneys bilateraly was unremarkable. UTI not likely as urinalysis was negative, unless likely pyelonephritis. (2) Acute hyperkalemia Priority: Primary Status: Acute Comments: Spironolactone is on hold. Potassium has improved it is now 4.9. Patient will be advised to get a BMP in a week to check the potassium- if improvement then she may restart spironolactone. Patient will be following up with nephrology outpatient. Patient advised to not take Bactrim and avoid NSAID (3) Dizziness Priority: Secondary Status: Acute Comments: Dizziness has resolved. (4) CKD (chronic kidney disease) stage 3, GFR 30-59 ml/min Priority: Secondary Status: Chronic Comments: Retroperitoneal ultrasound of the kidneys and urinary bladder was unremarkable. Patient will follow-up with nephrology outpatient for her chronic kidney disease stage III. (5) COPD (chronic obstructive pulmonary disease) Priority: Secondary Status: Chronic Comments: Patient denies dyspnea shortness of breath. Patient is on 2.5 liters of oxygen at home. Qualifiers: COPD type: emphysema Emphysema type: unspecified Qualified Code(s): J43.9 - Emphysema, unspecified (6) CHF (congestive heart failure) Priority: Secondary Status: Chronic Comments: Patients I\O, weight, and fluid intersection were closely monitored. Patient has chronic lower extremity edema bilaterally. Qualifiers: Congestive heart failure type: unspecified congestive heart failure type Qualified Code(s): I50.9 - Heart failure, unspecified (7) Hypertension Priority: Secondary Status: Chronic Comments: Patient will continue home medications Qualifiers: Hypertension type: essential hypertension Qualified Code(s): I10 - Essential (primary) hypertension (8) Anemia Priority: Secondary Status: Chronic Comments: Patient has a chronic anemia- currently 8.3. There is no active bleeding. Patient denies melena, hematemesis, vaginal bleeding. Patient denies weakness, fatigue, dizziness. Qualifiers: Anemia type: due to chronic kidney disease Chronic kidney disease stage: stage 3 (moderate) Qualified Code(s): N18.3 - Chronic kidney disease, stage 3 (moderate); D63.1 - Anemia in chronic kidney disease (9) Diabetes Priority: Secondary Status: Chronic Comments: Patient will continue home medications. Qualifiers: Diabetes mellitus type: type 2 Diabetes mellitus complication status: with kidney complications Diabetes mellitus complication detail: with chronic kidney disease Diabetes mellitus travel agent insulin use: without travel agent use Chronic kidney disease stage: stage 3 (moderate) Qualified Code(s): E11.22 - Type 2 diabetes mellitus with diabetic chronic kidney disease; N18.3 - Chronic kidney disease, stage 3 (moderate) (10) DVT prophylaxis Priority: Secondary Status: Acute Comments: Patient was on Heparin 5,000 units SQ Q8. - Discharge Medications Home Medications: Budesonide/Formoterol 80/4.5 [Symbicort 80/4.5] 2 puff IH BID PRN 04/06/16 [ History] Esomeprazole Magnesium [Nexium] 40 mg PO DAILY 04/06/16 [History] Furosemide [Lasix] 40 mg PO BID 04/06/16 [History] Glimepiride [Amaryl] 4 mg PO QAM 04/06/16 [History] Latanoprost [Xalatan] 1 drop BOTH EYES HS 04/06/16 [History] Simvastatin [Zocor] 40 mg PO HS 04/06/16 [History] SitaGLIPtin [Januvia] 100 mg PO DAILY 04/06/16 [History] Albuterol Sulfate [Albuterol Inhaler] 2 puff IH Q4H PRN 04/14/17 [History] Citalopram Hydrobromide [Citalopram HBr] 40 mg PO HS 04/14/17 [History] Docusate [Colace] 100 mg PO DAILY 04/14/17 [History] Gabapentin [Neurontin] 600 mg PO HS 04/14/17 [History] Valsartan [Diovan] 80 mg PO DAILY 04/14/17 [History] Allergies/Adverse Reactions: Allergies hydrocodone [From Vicodin] Adverse Reaction (Verified 11/30/15 13:29) Nausea Hydromorphone [From Dilaudid] Adverse Reaction (Verified 11/30/15 13:29) Nausea Procedures/tests Complete & Pending: Procedures Performed prior 72 hours Category Date Time Status US retroperitoneal comp [US] Routine Exams 04/15/17 15:00 Completed Date of admission: 04/14/17 22:00 Primary care physician: Liz Cody Consults: 04/14/17 23:33 Consult to Procedures Rn [CONS] Routine Reason for SW Consult: Pt. has home health with Dieudonne, home O2 with Lilia. 04/14/17 23:52 Consult to Nephrology [CONS] Routine Consulting Provider: Kidney Michelle/GUCCI/STEPHANIE/MIKEY Reason for Consult: Stage III CKD. Has appt. scheduled w/Dr. Ferrer but is admitted with bilateral flank pain and GFR of 32. Call Completed: No - Patient Status Disposition: Home, Self-Care Condition: Good Functional capacity at discharge: uses cane/walker Overall status at discharge: patient is back to baseline - Discharge Instructions Instructions: Heart Failure (DC), Anemia (GEN) Follow Up With: Albert Lema DO [Primary Care Provider] - (Web request sent. Doctors office will call you with an appointment. ) - Diet and Activity Activity: wear oxygen at all times Diet: regular diet Interval History: Ms. Cox is a pleasant 61-year-old female who presented to the emergency department complaining of a UTI. She had been diagnosed for a UTI and teated with Bactrim. Urinalyis was negative. Potassium was 5.8 and creatinine as 1.64 at admission. She was then admitted to the floor. Abdomen/pelvis CT and chest x-ray were unremarkable- there is a diaphragmatic hernia that patient is aware of. Renal ultrasound of kidneys and urinary bladder was unremarkable. Patient does have bilateral flank tenderness that patient states is chronic. Nephrology was consulted. Patient's spironolactone was held, put on fluid restriction, I/O monitored, and daily weights. Potassium improved to 4.9 and creatinine improved to 1.79. Patient stated she does not have dysuria, hematuria, dizziness, confusion, headache, shortness of breath, chest pain, nausea, vomiting. Patient stated she would like to go home. Nephrology agreed that patient is ready for discharge today and will follow up with her outpatient. Patient was advised to get labs done for a BMP and not take her spironolactone until after she did that and the potassium was normal. Patient was advised to follow up with her primary care physician and to come back to the hospital if she were to get worse. Hospital course: Ms. Cox is a 61 year old female - Time Spent with Patient Total time spent providing and/or coordinating discharge services: - Constitutional Vitals: Temp Pulse Resp BP Pulse Ox 98.1 F 77 16 120/69 98 04/16/17 07:30 04/16/17 07:30 04/16/17 08:27 04/16/17 07:30 04/16/17 08:27 General appearance: Present: cooperative, A&O X 3, morbidly obese, pleasant, answers questions appropriately - Head Head exam: Present: atraumatic - Eye Eye exam: Present: conjuntiva pink. Absent: scleral icterus - ENT ENT exam: Present: mucous membranes moist - Neck Neck exam general surgery: Present: supple, trachea midline. Absent: lymphadenopathy, tenderness - Respiratory Respiratory exam: Present: decreased breath sounds (The right middle and lower lobes of lung). Absent: accessory muscle use, chest wall tenderness, respiratory distress, wheezes - Cardiovascular Cardiovascular exam: Present: RRR, +S1, +S2. Absent: clicks, gallop - GI/Abdominal GI/Abdominal exam: Present: normal bowel sounds, soft. Absent: distended, tenderness - Extremities Exam Extremities exam: Present: pedal edema, radial pulses palpable and symetrical. Absent: calf tenderness - Expanded Lower Extremities Exam Lower Leg exam: Present: swelling (Edema bilaterally). Absent: crepitus, ecchymosis, tenderness - Skin Skin exam: Present: dry, intact <Des Serrano - Last Filed: 04/16/17 18:33> Date of Encounter: 04/16/17 Procedures/tests Complete & Pending: Procedures Performed prior 72 hours Category Date Time Status US retroperitoneal comp [US] Routine Exams 04/15/17 15:00 Completed Date of admission: 04/14/17 22:00 Primary care physician: Liz Cody Consults: 04/14/17 23:33 Consult to Procedures Rn [CONS] Routine Reason for SW Consult: Pt. has home health with Dieudonne, home O2 with Lilia. 04/14/17 23:52 Consult to Nephrology [CONS] Routine Consulting Provider: Kidney Michelle/GUCCI/STEPHANIE/MIKEY Reason for Consult: Stage III CKD. Has appt. scheduled w/Dr. Ferrer but is admitted with bilateral flank pain and GFR of 32. Call Completed: No Hospital course: Ms. Cox is a 61 year old female - Time Spent with Patient Total time spent providing and/or coordinating discharge services: - Constitutional Vitals: Temp Pulse Resp BP Pulse Ox 98.1 F 83 16 125/67 94 04/16/17 11:27 04/16/17 11:27 04/16/17 11:27 04/16/17 11:27 04/16/17 11:27 - Attending Attestation I examined this patient and my medical decision-making was reviewed with the Resident Physician, Dr Harrison. I agree with the documented findings, disposition and treatment plan as described except to the extent set forth below. atient admitted for acute renal failure and hyperkalemia. Kidney function improving with flui Potassium is 4.9. She is medically stable for discha Discharge home.
--- NOTE | 2017-04-16 10:16 | Nephrology Progress Note ---
Date of Encounter: 04/16/17 Time of Encounter: 09:00 - Assessment and Plan (1) Renal failure (ARF), acute on chronic Status: Acute Nonoliguric MARIFER (not ATN) on CKD stage III with associated hyperkalemia. Both the SCr and serum K+ are trending better. No indications for initiation of PARKING ASSISTANT at this time. We had held the spironolactone but as long as a BMP in about a week after discharged returns stable, then it may be reasoable to resume, but her K+ should be closely monitored b/c if it were to remain elevated, then she may not be a candidated for ongoing spironolactone. Volume status was stable and lasix has already been resumed/continued. Recommend she follow up in the Nephrology clinic. Continue follow a renal protective strategy: dose Rx by GFR, avoid nephrotoxins as able. Thank you. Qualifiers: Acute renal failure type: unspecified Chronic kidney disease stage: stage 3 (moderate) Qualified Code(s): N17.9 - Acute kidney failure, unspecified; N18.3 - Chronic kidney disease, stage 3 (moderate) (2) Acute hyperkalemia Status: Acute See above (3) Hypertension Status: Chronic See above Qualifiers: Hypertension type: essential hypertension Qualified Code(s): I10 - Essential (primary) hypertension Subjective Principal diagnosis: MARIFER Interval history: Pt was s/e earlier in the day. She did not affirm new major complaints. No uremic symptoms were affirmed. Objective - Vital Signs Vital signs: Vital Signs Temp Pulse Resp BP Pulse Ox 04/16/17 08:27 16 98 04/16/17 07:30 98.1 F 77 16 120/69 97 04/16/17 04:27 18 95 04/16/17 04:18 99.0 F 79 14 118/60 96 04/16/17 00:16 16 96 04/15/17 23:57 98.4 F 74 15 113/68 93 04/15/17 20:04 17 100 04/15/17 19:37 98.6 F 68 16 111/63 98 04/15/17 16:09 18 98 04/15/17 15:12 97.9 F 69 18 106/61 99 04/15/17 11:20 98 04/15/17 11:06 20 100 04/15/17 10:54 100 F H 74 20 97/57 100 Intake and Output 04/15/17 04/16/17 04/16/17 23:59 07:59 15:59 Intake Total 240 / 240 1000 / 1000 120 / 120 Output Total 0 / 0 400 / 400 Balance 240 / 240 600 / 600 120 / 120 Intake: IV Fluids 1000 / 1000 0.9 % Sodium Chloride 1, 1000 / 1000 000 ML @ 75 mls/hr IVC . [id number] [facility] Rx#: [id number] Oral 240 / 240 120 / 120 Output: Urine 0 / 0 400 / 400 Other: Meal Dinner Breakfast Percent of Meal Consumed 75% 45% Stool Size Small Stool Consistency formed # Voids 1 Weight 114.305 kg Blood Glucose* 177 99 - General Appearance Exam: General appearance: well-developed, well-nourished, appears started age, obese EENT: PERRL, mucous membranes moist Neck: no JVD, supple Additional Comments: diminished lung sound at bases. Cardiology: edema (2+ chronic), regular rate, regular rhythm, normal S1, normal S2 Gastrointestinal: normoactive bowel sounds, no tenderness, no guarding, no organomegaly, no masses Integumentary: no rash, warm and dry Neurologic: no focal deficit, no asterixis, alert and oriented x3 Musculoskeletal: no deformities, no erythema, no cyanosis, no clubbing Psychiatric: mood/affect appropriate, cooperative - Lab 04/16/17 06:18 04/16/17 06:18 Most recent lab results Calcium 8.7 mg/dL (8.6-10.8) 04/16/17 06:18 Magnesium 2.1 mg/dL (1.6-2.6) 04/15/17 04:47 Consult Discharge Plan - Plan Instructions: Heart Failure (DC), Anemia (GEN) Referrals: Albert Lema DO [Primary Care Provider] - (Web request sent. Doctors office will call you with an appointment. )
[2017-04-16 11:30] VITALS: BP 125/67
--- NOTE | 2017-04-16 11:42 | Physician Discharge Referral ---
Home Health/Hosp Referral Info Transfer to: Home Health Provider in Charge Post Discharge: PCP - Diagnosis (1) Bilateral flank pain Status: Acute (2) Acute hyperkalemia Status: Acute (3) Dizziness Status: Acute (4) CKD (chronic kidney disease) stage 3, GFR 30-59 ml/min Status: Chronic (5) COPD (chronic obstructive pulmonary disease) Status: Chronic (6) CHF (congestive heart failure) Status: Chronic (7) Hypertension Status: Chronic (8) Anemia Status: Chronic (9) Diabetes Status: Chronic (10) DVT prophylaxis Status: Acute - Respiratory Orders Oxygen / L per min (2.5L) Smoking Cessation: Smoking cessation has been advised. For more information, call the [place] Tobacco Quit Line at 7-932-FMBO-NOW. - Diet/Nutrition Diet/Nutrition Orders: Regular - Activity Activity Orders: Walker - Services Needed Following services are medically necessary services: Nursing, Home Health Aide - Transfer Medications Home Medications: Budesonide/Formoterol 80/4.5 [Symbicort 80/4.5] 2 puff IH BID PRN 04/06/16 [ History] Esomeprazole Magnesium [Nexium] 40 mg PO DAILY 04/06/16 [History] Furosemide [Lasix] 40 mg PO BID 04/06/16 [History] Glimepiride [Amaryl] 4 mg PO QAM 04/06/16 [History] Latanoprost [Xalatan] 1 drop BOTH EYES HS 04/06/16 [History] Simvastatin [Zocor] 40 mg PO HS 04/06/16 [History] SitaGLIPtin [Januvia] 100 mg PO DAILY 04/06/16 [History] Albuterol Sulfate [Albuterol Inhaler] 2 puff IH Q4H PRN 04/14/17 [History] Citalopram Hydrobromide [Citalopram HBr] 40 mg PO HS 04/14/17 [History] Docusate [Colace] 100 mg PO DAILY 04/14/17 [History] Gabapentin [Neurontin] 600 mg PO HS 04/14/17 [History] Valsartan [Diovan] 80 mg PO DAILY 04/14/17 [History] Allergies/Adverse Reactions: Allergies hydrocodone [From Vicodin] Adverse Reaction (Verified 11/30/15 13:29) Nausea Hydromorphone [From Dilaudid] Adverse Reaction (Verified 11/30/15 13:29) Nausea Certification: Further, I certify that my clinical findings support that this patient is homebound (i.e. absences from home require considerable and taxing effort and are for medical reasons or jewish services or infrequently or short duration when for other reasons) because: Homebound Reason: Leaving home requires considerable and taxing effort due to condition Attestation: My signature below is to certify that this patient is under my care and that I, or nurse practitioner, or a physician's assistant professor of criminal justice working with me, has a face-to -face encounter with this patient. Dr. Marilee Harrison DO
== END 2017-04-16 13:56 | disposition home health service (06) ==
LOC: EMEROO 16:52 → 2ANU 16:52 → SUATTDRO 22:00 → 2ANU 22:56
PROVIDERS: ADMIT Internal Medicine; ATTEND Internal Medicine

== ENCOUNTER 2017-07-23 17:29 | Observation (INO) ==
[2017-07-23 18:05] LABS: Basophils % 0.4 %; Hematocrit 31.8 % (35.3-44.9); Hemoglobin 9.4 g/dL (11.5-15.4); Immature Granulocytes % 0.3 % (0-4); Lymphocytes # 1.3 K/mcL (0.6-4.6); Lymphocytes % 18.3 %; Mean Corpuscular HGB Conc 29.6 g/dL (31.6-35.5); Mean Corpuscular Hemoglobin 29.8 pg (28.0-33.3); Mean Platelet Volume 12.1 fL (9.4-12.4); Monocytes # 0.5 K/mcL (0.0-1.3); Monocytes % 7.3 %; Neutrophils # 5.2 K/mcL (1.6-8.9); Platelet Count 113 K/mcL (140-400); Red Blood Count 3.15 M/mcL (3.82-4.97); Red Cell Distribution Width 12.3 % (11.5-14.5); Segmented Neutrophils % 73.7 %
[2017-07-23 18:10] LABS: Prothrombin Time 11.2 Seconds (9.4-12.1)
[2017-07-23 18:18] LABS: Alanine Aminotransferase 8 Units/L (0-55); Albumin 3.4 g/dL (3.5-5.0); Albumin/Globulin Ratio 0.9 (1.1-2.2); Alkaline Phosphatase 80 Units/L (38-126); Aspartate Amino Transferase 11 Units/L (5-34); BUN/Creatinine Ratio 21 (6-26); Blood Urea Nitrogen 18 mg/dL (7-20); Calcium 9.5 mg/dL (8.6-10.8); Chloride 90 mEq/L (98-109); Globulin 3.8 g/dL (2.4-3.5); Glucose 142 mg/dL (70-99); Osmolality,Calculated 306 (280-300); Potassium 4.3 mEq/L (3.5-4.5); Sodium 146 mEq/L (136-145); Total Protein 7.2 g/dL (6.0-8.3); eGFR For African Americans > 60 (> 60); eGFR For Non-African Americans > 60 (> 60)
[2017-07-23 18:31] LABS: Bilirubin,Total < 0.2 mg/dL (0.2-1.2); Carbon Dioxide 48 mEq/L (19-29)
--- NOTE | 2017-07-23 18:34 | Emergency Department Note ---
Disposition Clinical Impression: Weakness Anemia Qualifiers: Anemia type: unspecified type Qualified Code(s): D64.9 - Anemia, unspecified COPD (chronic obstructive pulmonary disease) Qualifiers: COPD type: unspecified COPD Qualified Code(s): J44.9 - Chronic obstructive pulmonary disease, unspecified Disposition: Admitted As Inpatient Condition: Fair Referrals: Aayush Chase MD [Primary Care Provider] - Forms: ED Satisfaction Letter Time of Disposition: 19:36 General Adult HPI - General Chief complaint: ED Dizziness Stated complaint: FALL Time Seen by Provider: 07/23/17 17:39 Source: patient, EMS Limitations: no limitations Nursing Notes Reviewed: Yes Vital Signs Reviewed: Yes - History of Present Illness HPI Narrative: The patient is a 62-year-old female with a past medical history of COPD that is complaining of weakness and multiple falls. Patient states that she is on 4L of oxygen at home. Patient states that she has had 3 falls in the past two days without any loss of consciousness. She admits hitting her head on the wall but had no bleeding or LOC. She admits she has been feeling weak lately with difficulty walking and having more falls and that prompt her to call EMS because she wanted to be evaluated. She admits lightheadness and denies dizziness. She denies anything that makes her feel better but exertion makes her feel weaker and more short of breath. She admits weakness, fatigue, and increasing shortness of breath over the last two days. She also admits she has dark stools, but is currently on iron supplements. She denies any headache, vision changes, chest pain, palpitations, abdominal pain, blood in the stool, blood in her urine, numbness and tingling, and any focal neurological deficits. Pain Scale: 0 - Related Data Home Medications Medication Instructions Recorded Confirmed Budesonide/Formoterol 80/4.5 2 puff IH BID PRN 04/06/16 04/14/17 [Symbicort 80/4.5] Esomeprazole Magnesium [Nexium] 40 mg PO DAILY 04/06/16 04/14/17 Furosemide [Lasix] 40 mg PO BID 04/06/16 04/14/17 Glimepiride [Amaryl] 4 mg PO QAM 04/06/16 04/14/17 Latanoprost [Xalatan] 1 drop BOTH EYES HS 04/06/16 04/14/17 Simvastatin [Zocor] 40 mg PO HS 04/06/16 04/14/17 SitaGLIPtin [Januvia] 100 mg PO DAILY 04/06/16 04/14/17 Albuterol Sulfate [Albuterol 2 puff IH Q4H PRN 04/14/17 04/14/17 Inhaler] Citalopram Hydrobromide 40 mg PO HS 04/14/17 04/14/17 [Citalopram HBr] Docusate [Colace] 100 mg PO DAILY 04/14/17 04/14/17 Gabapentin [Neurontin] 600 mg PO HS 04/14/17 04/14/17 Valsartan [Diovan] 80 mg PO DAILY 04/14/17 04/14/17 Allergies Allergy/AdvReac Type Severity Reaction Status Date / Time hydrocodone [From Vicodin] AdvReac Nausea Verified 11/30/15 13:29 Hydromorphone [From Dilaudid] AdvReac Nausea Verified 11/30/15 13:29 All systems ED: reviewed and negative except as stated. Review of Systems: As Per HPI Past Medical History - Past Medical History Medical history: Reports: CHF, COPD, diabetes, fibromyalgia, hyperlipidemia, hypertension Surgical history: Reports: other (Right knee repair, EGD, tonsillectomy, colonoscopy) Psychiatric history: Reports: anxiety, depression - Social History Smoking Status: Never smoker Smokeless Tobacco Status: No Alcohol use: Reports: none Drug use: Reports: none Physical Exam CONSTITUTIONAL: Appears pale on exam. Alert and oriented X3, well-nourished, in no apparent distress HEAD: Normocephalic; atraumatic. EYES: PERRL, no scleral icterus. NOSE: The nose is normal in appearance without rhinorrhea RESP: Normal chest excursion with respiration; breath sounds clear and equal bilaterally; no wheezes, rhonchi, or rales CARD: Regular rhythm, without murmurs, rub or gallop ABD: Non-distended; non-tender, soft,without rigidity, rebound or guarding SKIN: Patient appears pale on exam. Normal for age and race; warm and dry; no apparent lesions. NEUROLOGICAL: Cranial nerves III-XII are intact. Sensory and motor functions are intact. Strength is 5/5 for flexion and extension in all 4 extremities. Patellar DTRS are equal and intact. Distal pulses are +2/4 bilaterally - General Limitations: no limitations General appearance: alert Course Vital Signs Temperature 0 F L 07/23/17 17:31 Pulse Rate 85 07/23/17 17:31 Respiratory Rate 16 07/23/17 17:31 Blood Pressure 135/59 07/23/17 17:31 O2 Sat by Pulse Oximetry 100 07/23/17 17:31 Temperature 0 F L 07/23/17 17:31 Pulse Rate 73 07/23/17 18:15 Respiratory Rate 18 07/23/17 18:15 Blood Pressure 132/84 07/23/17 18:15 O2 Sat by Pulse Oximetry 96 07/23/17 18:15 Oxygen Delivery Oxygen Delivery Nasal Cannula Medical Decision Making - MDM Narrative Medical decision making narrative: Patient was hypoxic on arrival with O2 sat at 78% on room air. Patient is at 97 % with 2L of oxygen. LAbs show CO2 of 48 and Hgb of 9.0, which is at her baseline. ABG is pending to evaluate her hypoxia and elevated CO2. CT are pending for evaluation of weakness and recent falls. Plan to admit the patient for hypoxia and weakness with difficulty ambulating. - Lab Data Lab results reviewed: Yes I reviewed the patient's lab results. Result diagrams: 07/23/17 17:40 07/23/17 17:40 Lab Results 07/23/17 07/23/17 07/23/17 Range/Units 17:40 17:40 17:40 WBC 7.1 (4.3-11.1) K/mcL RBC 3.15 L (3.82-4.97) M/mcL Hgb 9.4 L (11.5-15.4) g/dL Hct 31.8 L (35.3-44.9) % MCV 101.0 H (83.0-100.0) fL MCH 29.8 (28.0-33.3) pg MCHC 29.6 L (31.6-35.5) g/dL RDW 12.3 (11.5-14.5) % Plt Count 113 L (140-400) K/mcL MPV 12.1 (9.4-12.4) fL Immature Gran % 0.3 (0-4) % Seg Neutrophils % 73.7 % Lymphocytes % 18.3 % Monocytes % 7.3 % Eosinophils % 0.0 % Basophils % 0.4 % Neutrophils # 5.2 (1.6-8.9) K/mcL Lymphocytes # 1.3 (0.6-4.6) K/mcL Monocytes # 0.5 (0.0-1.3) K/mcL Eosinophils # 0.0 (0.0-0.6) K/mcL Basophils # 0.0 (0.0-0.2) K/mcL PT 11.2 (9.4-12.1) Seconds INR 1.0 Sodium 146 H (136-145) mEq/L Potassium 4.3 (3.5-4.5) mEq/L Chloride 90 L (98-109) mEq/L Carbon Dioxide 48 H* (19-29) mEq/L BUN 18 (7-20) mg/dL Creatinine 0.87 (0.57-1.11) mg/dL Est GFR ( Amer) > 60 (> 60) Est GFR (Non-Af Amer) > 60 (> 60) BUN/Creatinine Ratio 21 (6-26) Glucose 142 H (70-99) mg/dL Calculated Osmolality 306 H (280-300) Calcium 9.5 (8.6-10.8) mg/dL Total Bilirubin < 0.2 L (0.2-1.2) mg/dL AST 11 (5-34) Units/L ALT 8 (0-55) Units/L Alkaline Phosphatase 80 (38-126) Units/L Troponin I (0-0.03) ng/mL Serum Total Protein 7.2 (6.0-8.3) g/dL Albumin 3.4 L (3.5-5.0) g/dL Globulin 3.8 H (2.4-3.5) g/dL Albumin/Globulin Ratio 0.9 L (1.1-2.2) Urine Color (Yellow) Urine Clarity (Clear) Urine pH (5.0-8.0) pH Units Ur Specific [place] (1.010-1.025) Urine Protein (Neg-Trace) mg/dL Urine Glucose (UA) (Normal) mg/dL Urine Ketones (Negative) mg/dL Urine Blood (Negative) Urine Nitrite (Negative) Urine Bilirubin (Negative) Urine Urobilinogen (Normal) mg/dL Ur Leukocyte Esterase (Negative) Ur Culture Indicated? (NO) Stool Occult Blood (Negative) 07/23/17 07/23/17 07/23/17 Range/Units 17:40 17:53 18:20 WBC (4.3-11.1) K/mcL RBC (3.82-4.97) M/mcL Hgb (11.5-15.4) g/dL Hct (35.3-44.9) % MCV (83.0-100.0) fL MCH (28.0-33.3) pg MCHC (31.6-35.5) g/dL RDW (11.5-14.5) % Plt Count (140-400) K/mcL MPV (9.4-12.4) fL Immature Gran % (0-4) % Seg Neutrophils % % Lymphocytes % % Monocytes % % Eosinophils % % Basophils % % Neutrophils # (1.6-8.9) K/mcL Lymphocytes # (0.6-4.6) K/mcL Monocytes # (0.0-1.3) K/mcL Eosinophils # (0.0-0.6) K/mcL Basophils # (0.0-0.2) K/mcL PT (9.4-12.1) Seconds INR Sodium (136-145) mEq/L Potassium (3.5-4.5) mEq/L Chloride (98-109) mEq/L Carbon Dioxide (19-29) mEq/L BUN (7-20) mg/dL Creatinine (0.57-1.11) mg/dL Est GFR ( Amer) (> 60) Est GFR (Non-Af Amer) (> 60) BUN/Creatinine Ratio (6-26) Glucose (70-99) mg/dL Calculated Osmolality (280-300) Calcium (8.6-10.8) mg/dL Total Bilirubin (0.2-1.2) mg/dL AST (5-34) Units/L ALT (0-55) Units/L Alkaline Phosphatase (38-126) Units/L Troponin I 0.01 (0-0.03) ng/mL Serum Total Protein (6.0-8.3) g/dL Albumin (3.5-5.0) g/dL Globulin (2.4-3.5) g/dL Albumin/Globulin Ratio (1.1-2.2) Urine Color Yellow (Yellow) Urine Clarity Clear (Clear) Urine pH 6.0 (5.0-8.0) pH Units Ur Specific [place] 1.018 (1.010-1.025) Urine Protein Negative (Neg-Trace) mg/dL Urine Glucose (UA) Normal (Normal) mg/dL Urine Ketones Negative (Negative) mg/dL Urine Blood Negative (Negative) Urine Nitrite Negative (Negative) Urine Bilirubin Negative (Negative) Urine Urobilinogen Normal (Normal) mg/dL Ur Leukocyte Esterase Negative (Negative) Ur Culture Indicated? NO (NO) Stool Occult Blood Negative (Negative) - Radiology Data Radiology results reviewed: Yes I reviewed the patient's radiology results. - EKG Data EKG #1 EKG results narrative: E.g. shows sinus rhythm with a rate of 83, ME interval of 166, QRS duration 7, QT at 302, QTC at 342. No acute ischemic changes are noted on the EKG. No significant changes compared to the old EKG dated on 04/14/17.
[2017-07-23 18:52] LABS: Bilirubin,Urine Negative (Negative); Blood,Urine Negative (Negative); Clarity,Urine Clear (Clear); Color,Urine Yellow (Yellow); Glucose,Urine (UA) Normal (Normal); Ketones,Urine Negative (Negative); Leukocyte Esterase,Urine Negative (Negative); Nitrite,Urine Negative (Negative); Protein,Urine Negative (Neg-Trace); Specific Gravity,Urine 1.018 (1.010-1.025); Urobilinogen,Urine Normal (Normal)
[2017-07-23 19:37] LABS: ABG Base Excess 23 mEq/L (-2 to 3); ABG HCO3 54 mEq/L (21-27); ABG Oxygen Saturation 92 % (95-98); ABG PCO2 110 mmHg (35-45); ABG PO2 77 mmHg (85-104); ABG TCO2 57 mEq/L (20-26)
[2017-07-23] MEDS ORDERED: *HR* Morphine 2 MG/ML SYRINGE IVP PRN (20:14)
[2017-07-23] MEDS ORDERED: Ondansetron 4 MG/2 ML VIAL IVP PRN (20:14)
[2017-07-23] MEDS ORDERED: Naloxone 0.4 MG/ML INJ IVP PRN (20:14)
[2017-07-23] MEDS: Aspirin 325 MG TABLET PO SCH (21:50)
[2017-07-23] MEDS: Furosemide 20 MG TABLET PO SCH (21:51)
[2017-07-23] MEDS: *HR* Heparin 5,000 UNIT/ML VIAL SQ SCH (21:51)
[2017-07-23] MEDS: Gabapentin 300 MG CAPSULE PO SCH (22:52)
[2017-07-23] MEDS: Latanoprost 2.5 ML BOTTLE BOTH EYES SCH (22:53)
[2017-07-23] MEDS: methylPREDNISolone 125 MG/2 ML VIAL IVP SCH (22:55)
--- NOTE | 2017-07-23 23:41 | Internal Med History&Physical ---
Date of Encounter: 07/23/17 Time of Encounter: 21:30 Assessment and Plan (1) COPD (chronic obstructive pulmonary disease) Current visit: Yes Status: Acute Acute hypoxic hypercapnic respiratory failure - secondary to acute exacerbation of COPD - possibly contributing to generalized weakness and falls Continue DuoNeb breathing treatment, Symbicort, IV Solu-Medrol Continue O2 via nasal cannula, BiPAP at night Chest x-ray - no acute findings, with demonstration of mild right hemidiaphragmatic elevation CT head - no acute intracranial abnormalities CT C-spine - no acute fracture Troponin - negative, second troponin BNP - 161 EKG - sinus rhythm with no acute ST-T changes Cardiac telemetry, pulse ox, labs in a.m., monitor closely Qualifiers: COPD type: COPD with acute exacerbation Qualified Code(s): J44.1 - Chronic obstructive pulmonary disease with (acute) exacerbation (2) CKD (chronic kidney disease) stage 3, GFR 30-59 ml/min Current visit: No Status: Chronic Chronic kidney disease stage III, stable - creatinine and GFR baseline Repeat labs in a.m. (3) Hypertension Current visit: No Status: Chronic Essential hypertension, controlled, monitor Continue home meds Qualifiers: Hypertension type: essential hypertension Qualified Code(s): I10 - Essential (primary) hypertension (4) Diabetes Current visit: No Status: Chronic Type 2 diabetes mellitus, [id number], hyperglycemia Continue insulin sliding scale, glucose checks Qualifiers: Diabetes mellitus type: type 2 Diabetes mellitus complication status: with kidney complications Diabetes mellitus complication detail: with chronic kidney disease Diabetes mellitus chcf insulin use: without adjunct faculty for medical terminology use Chronic kidney disease stage: stage 3 (moderate) Qualified Code(s): E11.22 - Type 2 diabetes mellitus with diabetic chronic kidney disease; N18.3 - Chronic kidney disease, stage 3 (moderate) (5) CHF (congestive heart failure) Current visit: No Status: Chronic Chronic moderate diastolic CHF with LVEF 65% - not in exacerbation Fluid restriction, daily weight, strict I's and O's Qualifiers: Congestive heart failure type: diastolic Congestive heart failure chronicity: chronic Qualified Code(s): I50.32 - Chronic diastolic (congestive ) heart failure (6) Morbid obesity Current visit: Yes Status: Chronic Morbid obesity with BMI of 45.0 (7) DVT prophylaxis Current visit: Yes Status: Acute Continue heparin subcutaneous Internal Medicine - H&P: HPI Chief complaint: Generalized weakness, fall Admitted From: Emergency Dept Plans for Post Hospital Care: Home History of present illness: Ms. Cox is a 62 year old female with past medical history of COPD, CHF, diabetes, fibromyalgia, hyperlipidemia and hypertension. She presents to the ED with complaints of generalized weakness and multiple falls. Examined in the room. Patient is awake and alert. Able to provide all history. No family members at bedside. Patient states that she has had several falls over the past 2-3 days. She denies loss of consciousness. She states she hit her head but has not had any obvious injuries. She complains of generalized weakness and also difficulty walking. Symptoms are worse with exertion. She also complains of associated shortness of breath. Denies chest pain or palpitations or abdominal pain or vomiting. No other associated symptoms. No other acute complaints. She thinks this could be due to her carbon dioxide level being high. States this has happened in the past. Initial workup in the ED is significant for severe hypercapnia and hypoxia. Patient has been started on BiPAP. Chest x-ray does not show any acute abnormality. CT of the head does not show any acute intracranial abnormality. CT cervical spine does not show any acute fracture. Patient has been started on DuoNeb breathing treatment and will be continued on Symbicort. She is also on IV Solu-Medrol. We will continue her home medications. We will also continue BiPAP at this time. Patient has been explained about her condition and plan of care in detail. She understood and agreed. No unanswered questions. CODE STATUS full code. Past Med Surg Social Fam HX - Past Medical History Medical history: CHF, COPD, diabetes, fibromyalgia, hyperlipidemia, hypertension Psychiatric history: anxiety, depression - Past Surgical History Surgical History: other - Social History Smoking Status: Never smoker Smokeless Tobacco Status: No Alcohol use: none Drug use: none - Family History Father Family Member Ethnicity: Non- Living Status: Hx Family Cardiac Disorders: Yes (VA, HTN) Brother Family Member Ethnicity: Non- Living Status: Still Living Hx Family GI Disorders: Yes (Crohn's disease) Sister Family Member Ethnicity: Non- Living Status: Hx Family Cardiac Disorders: Yes (VA, HTN) Mother Adopted: No Family Member Ethnicity: Non- Living Status: Hx Family Cardiac Disorders: Yes (HTN, CHF) Hx Family Respiratory Disorders: Yes (COPD) Hx Family Cancer: Yes (skin) Hx Family GI Disorders: No Hx Family Endocrine Disorder: Yes (DM) Hx Family Neuromuscular Disorders: No Hx Family Neurologic Disorders: Yes (CVA with rt sided weakness) Hx Family HEENT Disorders: Yes ([place]SI[place]) Hx Family Autoimmune Disorders: No Internal Medicine - H&P: Meds Budesonide/Formoterol 80/4.5 [Symbicort 80/4.5] 2 puff IH BID PRN 04/06/16 [ History] Esomeprazole Magnesium [Nexium] 40 mg PO DAILY 04/06/16 [History] Furosemide [Lasix] 40 mg PO BID 04/06/16 [History] Glimepiride [Amaryl] 4 mg PO QAM 04/06/16 [History] Latanoprost [Xalatan] 1 drop BOTH EYES HS 04/06/16 [History] Simvastatin [Zocor] 40 mg PO HS 04/06/16 [History] SitaGLIPtin [Januvia] 100 mg PO DAILY 04/06/16 [History] Albuterol Sulfate [Albuterol Inhaler] 2 puff IH Q4H PRN 04/14/17 [History] Citalopram Hydrobromide [Citalopram HBr] 40 mg PO HS 04/14/17 [History] Docusate [Colace] 100 mg PO DAILY 04/14/17 [History] Gabapentin [Neurontin] 600 mg PO HS 04/14/17 [History] Valsartan [Diovan] 80 mg PO DAILY 04/14/17 [History] 3 Allergy/AdvReac Type Severity Reaction Status Date / Time hydrocodone [From Vicodin] AdvReac Nausea Verified 11/30/15 13:29 Hydromorphone [From Dilaudid] AdvReac Nausea Verified 11/30/15 13:29 All Systems PM: A 10-system review of systems was performed and is negative for pertinent findings except as documented above in the HPI. - Constitutional Constitutional: fatigue, fever(s), weakness, no chills Additional comments: Falls - EENT Eyes: no blurry vision - Cardiovascular Cardiovascular ROS IM: dyspnea, dyspnea on exertion, lightheadedness, no chest pain, no claudication, no diaphoresis, no orthopnea, no palpitations, no syncope - Respiratory Respiratory: dyspnea, dyspnea on exertion, no cough, no hemoptysis, no wheezing , no pain on inspiration - Gastrointestinal Gastrointestinal: no abdominal pain, no cramping, no diarrhea, no hematemesis, no hematochezia, no nausea, no vomiting - Genitourinary Genitourinary: no dysuria - Neurological Neurological ROS: no abnormal gait, no confusion, no convulsions, no dizziness, no loss of vision, no numbness, no tingling - Constitutional Vitals: Temp Pulse Resp BP Pulse Ox 98.0 F 74 15 136/77 96 07/23/17 20:51 07/23/17 20:51 07/23/17 20:51 07/23/17 20:51 07/23/17 20:51 General appearance: Present: mild distress, A&O X 3, morbidly obese, pleasant, answers questions appropriately - Head Head exam: Present: atraumatic - Eye Eye exam: Present: EOMI - ENT ENT exam: Present: mucous membranes dry - Respiratory Respiratory exam: Present: wheezes (Mild bilateral). Absent: accessory muscle use, chest wall tenderness, rales, rhonchi, tachypnea - Cardiovascular Cardiovascular exam: Present: RRR, +S1, +S2 - GI/Abdominal GI/Abdominal exam: Present: soft. Absent: distended, firm, guarding, tenderness - Extremities Exam Extremities exam: Present: radial pulses palpable and symmetrical. Absent: calf tenderness, cyanotic, pedal edema - Neurological Exam Neurological exam: Present: alert, oriented X3, no focal deficits. Absent: facial droop, speech deficit Internal Med - H&P Results - Labs CBC & Chem 7: 07/23/17 17:40 07/23/17 17:40 Labs: Cardiac Enzymes 07/23/17 Range/Units 20:47 Troponin I 0.01 (0-0.03) ng/mL
[2017-07-23] MEDS: Budesonide/Formoterol 80/4.5 MDI IH SCH (23:47)
[2017-07-23] MEDS: Ipratropium/Albuterol Neb 3 ML IH SCH (23:47)
[2017-07-24] MEDS ORDERED: D5% in Water 1,000 ML IVC PRN (01:12)
[2017-07-24] MEDS ORDERED: Dextrose Gel 15 GM PO PRN ×2 (01:12)
[2017-07-24] MEDS ORDERED: *HR* Dextrose 50 % in Water (Syg) 50 ML SYRINGE IVP PRN (01:12)
[2017-07-24 02:01] LABS: Basophils % 0.2 %; Hemoglobin 8.7 g/dL (11.5-15.4); Immature Granulocytes % 0.4 % (0-4); Lymphocytes # 0.6 K/mcL (0.6-4.6); Lymphocytes % 6.4 %; Mean Corpuscular Hemoglobin 29.1 pg (28.0-33.3); Mean Corpuscular Volume 100.3 fL (83.0-100.0); Mean Platelet Volume 12.2 fL (9.4-12.4); Monocytes # 0.1 K/mcL (0.0-1.3); Monocytes % 1.5 %; Neutrophils # 8.2 K/mcL (1.6-8.9); Platelet Count 110 K/mcL (140-400); Red Blood Count 2.99 M/mcL (3.82-4.97); Segmented Neutrophils % 91.5 %
[2017-07-24 02:13] LABS: BUN/Creatinine Ratio 22 (6-26); Blood Urea Nitrogen 19 mg/dL (7-20); Calcium 9.4 mg/dL (8.6-10.8); Chloride 88 mEq/L (98-109); Glucose 257 mg/dL (70-99); Osmolality,Calculated 309 (280-300); Potassium 4.5 mEq/L (3.5-4.5); Sodium 144 mEq/L (136-145); eGFR For African Americans > 60 (> 60); eGFR For Non-African Americans > 60 (> 60)
[2017-07-24 02:21] LABS: Carbon Dioxide 47 mEq/L (19-29)
[2017-07-24 02:28] LABS: Macrocytosis Present (Not Present); Platelet Estimate Slight Decrease (Normal)
[2017-07-24] MEDS: Ipratropium/Albuterol Neb 3 ML IH SCH ×6 (04:03→23:25)
[2017-07-24] MEDS: Famotidine 20 MG/2 ML VIAL IVP SCH ×2 (06:09→17:25)
[2017-07-24] MEDS: *HR* Heparin 5,000 UNIT/ML VIAL SQ SCH ×3 (06:11→20:47)
[2017-07-24] MEDS: Budesonide/Formoterol 80/4.5 MDI IH SCH ×2 (07:49→19:56)
[2017-07-24] MEDS: Insulin LISPRO 300 UNITS/3 ML VIAL SQ SCH ×4 (08:23→20:47)
[2017-07-24] MEDS: Aspirin 325 MG TABLET PO SCH (08:24)
[2017-07-24] MEDS: methylPREDNISolone 125 MG/2 ML VIAL IVP SCH ×4 (08:24→23:53)
[2017-07-24] MEDS: Furosemide 20 MG TABLET PO SCH ×2 (08:24→17:26)
[2017-07-24] MEDS: Valsartan 80 MG TABLET PO SCH (08:24)
[2017-07-24] MEDS: Acetaminophen 325 MG TABLET PO PRN ×2 (08:33→20:59)
--- NOTE | 2017-07-24 12:31 | Electrocardiograph Report ---
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
--- NOTE | 2017-07-24 12:58 | Internal Med Progress Note ---
Date of Encounter: 07/24/17 Time of Encounter: 10:20 - Assessment and plan (1) COPD (chronic obstructive pulmonary disease) Current Visit: Yes Status: Acute Assessment and plan: No acute exacerbation, pt is stable. Pt with normal hypoxia and chronic respiratory failure. Pt is not requiring 02 above her normal demand. Home 02 at 4L, continue while admitted. Continue Duonebs, Symbicort, and Solu-Medrol 60mh IVP q8h is ordered, as well. Lungs are clear and diminished, no wheezing, rales, ronchi, or respiratory distress. Qualifiers: COPD type: COPD with acute exacerbation Qualified Code(s): J44.1 - Chronic obstructive pulmonary disease with (acute) exacerbation (2) Falls frequently Current Visit: Yes Status: Acute Assessment and plan: Family reports 3 falls in the last 2 days, one of which pt hit her head on the wall, creating a hole in the wall. She denies injury or LOC with any of the falls. She states that she feels very weak and tired, causing her falls. She reports chronic GARCIA due to COPD and has been in pulmonary rehab before with no success. She also reports that she has been in PT previously, but is unable to complete treatment due to COPD, GARCIA, and overall deconditioning. Pt uses a walker at home and uses home 02 at 4L via n/c. She denies neck pain, headache, or extremity injury from falls. Pt is non-adherent to cpap at home, pt with hypercapnia and hypoxia on ABG. Continue BiPap in hospital. Cervical Spine CT 07/23/17 17:57 IMPRESSION: No acute intracranial abnormality. No acute cervical spine fracture D/ / Loi Broussard / Loi Broussard Interpreting Provider: Loi Broussard Head CT 07/23/17 17:57 IMPRESSION: No acute intracranial abnormality. No acute cervical spine fracture D/ / Loi Broussard / Loi Broussard Interpreting Provider: Loi Broussard Chest X-Ray 07/23/17 17:58 IMPRESSION: No acute abnormality detected. Re- demonstration of marked right hemidiaphragmatic elevation. D/ / Kyree Lazaro MD / Kyree Lazaro MD Interpreting Provider: Kyree Lazaro MD (3) CKD (chronic kidney disease) stage 3, GFR 30-59 ml/min Current Visit: Yes Status: Chronic Assessment and plan: Renal function labs are WNL. Continue to monitor labs throughout stay and avoid nephrotoxins. (4) Hypertension Current Visit: Yes Status: Chronic Assessment and plan: chronic. Continue home medications. Monitor VS per admission order. Qualifiers: Hypertension type: essential hypertension Qualified Code(s): I10 - Essential (primary) hypertension (5) Diabetes Current Visit: Yes Status: Chronic Assessment and plan: Hbg A1c 6.7% in April, will check again in the morning. Continue SSI, diabetic diet, and accuchecks achs. Qualifiers: Diabetes mellitus type: type 2 Diabetes mellitus complication status: with kidney complications Diabetes mellitus complication detail: with chronic kidney disease Diabetes mellitus manager intermediate insulin use: without nursing home use Chronic kidney disease stage: stage 3 (moderate) Qualified Code(s): E11.22 - Type 2 diabetes mellitus with diabetic chronic kidney disease; N18.3 - Chronic kidney disease, stage 3 (moderate) (6) Weakness Current Visit: Yes Status: Acute Assessment and plan: Pt states that she has been weak and tired. 3 Falls in the last 2 days at home. PT/OT evaluation pending. Causes could be COPD exaceration with hypoxia/hypercapnia, physical deconditioning. She denies chest pain or dizziness/lightheadedness with falls. Labs appear to be WNL and vitals are stable. Orthostatic VS pending. (7) Morbid obesity Current Visit: Yes Status: Chronic Assessment and plan: Chronic. Lifestyle modifications. - Time Spent With Patient less than 15 minutes - Subjective Interval history: Patient was seen and assessed that about 1010 this morning. She was alert and oriented, pleasant. Family member at bedside. Patient reports that she has had 3 falls in 2 days. She reports weakness but is causing her to fall. She denies any other pain than her normal neuropathy. Family member states that when she fell in the last 2 days she hit her head and made a hole in her wallet or bathroom. Patient denies smoking, states that she was exposed to large amount of secondhand smoke as a child. She also reports a prior history of anemia and takes iron supplementation daily. She wears oxygen at home normally 4 L and denies any increased demand over normal. She denies headache, blurred vision, neck pain, loss of consciousness with fall, chest pain, shortness of breath, abdominal pain, nausea, vomiting, or diarrhea. - Constitutional Vitals: Temp Pulse Resp BP Pulse Ox 97.7 F 68 18 124/75 95 07/24/17 11:52 07/24/17 11:52 07/24/17 11:52 07/24/17 11:52 07/24/17 11:52 General appearance: Present: mild distress, A&O X 3, morbidly obese, pleasant, no acute distress, answers questions appropriately - Head Head exam: Present: atraumatic, normal inspection, normocephalic - Eye Eye exam: Present: normal appearance, conjuntiva pink, sclera anicteric - Neck Neck exam general surgery: Present: supple, trachea midline. Absent: lymphadenopathy, tenderness - Respiratory Respiratory exam: Present: chest wall tenderness, CTAB. Absent: accessory muscle use, rales, rhonchi, wheezes - Cardiovascular Cardiovascular exam: Present: RRR, +S1, +S2. Absent: diastolic murmur, gallop, rubs, systolic murmur - GI/Abdominal GI/Abdominal exam: Present: normal bowel sounds, soft, no peritoneal signs. Absent: distended, hepatomegaly, tenderness - Extremities Exam Extremities exam: Present: normal capillary refill, tenderness, warm, radial pulses palpable and symmetrical. Absent: calf tenderness, cyanotic, pedal edema - Neurological Exam Neurological exam: Present: alert, oriented X3, no focal deficits. Absent: facial droop, speech deficit - Skin Skin exam: Present: dry, intact, normal color, warm. Absent: rash Internal Medicine: Result - Labs CBC & Chem 7: 07/24/17 01:43 07/24/17 01:43 Labs: Short CBC 07/24/17 Range/Units 01:43 WBC 9.0 (4.3-11.1) K/mcL Hgb 8.7 L (11.5-15.4) g/dL Hct 30.0 L (35.3-44.9) % Plt Count 110 L (140-400) K/mcL Neutrophils # 8.2 (1.6-8.9) K/mcL BMP 07/24/17 01:43 Sodium 144 Potassium 4.5 Chloride 88 L Carbon Dioxide 47 H* BUN 19 Creatinine 0.86 Glucose 257 H Calcium 9.4 Cardiac Enzymes 07/23/17 07/24/17 07/24/17 Range/Units 20:47 01:43 09:21 Troponin I 0.01 0.00 0.01 (0-0.03) ng/mL - ABG Interpretation ABG results: ABG ABG pH 7.30 pH Units (7.32-7.45) L 07/23/17 19:28 ABG pCO2 110 mmHg (35-45) H* 07/23/17 19:28 ABG pO2 77 mmHg (85-104) L 07/23/17 19:28 ABG O2 Saturation 92 % (95-98) L 07/23/17 19:28 PT/INR, D-dimer PT 11.2 Seconds (9.4-12.1) 07/23/17 17:40 Consult Discharge Plan - Plan Referrals: Aayush Chase MD [Primary Care Provider] -
[2017-07-24] MEDS: Gabapentin 300 MG CAPSULE PO SCH (20:47)
[2017-07-24] MEDS: Latanoprost 2.5 ML BOTTLE BOTH EYES SCH (20:51)
[2017-07-25] MEDS: Ipratropium/Albuterol Neb 3 ML IH SCH ×6 (04:08→23:47)
[2017-07-25 05:08] LABS: Hematocrit 28.8 % (35.3-44.9); Hemoglobin 8.6 g/dL (11.5-15.4); Immature Granulocytes % 0.7 % (0-4); Lymphocytes # 0.4 K/mcL (0.6-4.6); Lymphocytes % 7.5 %; Mean Corpuscular HGB Conc 29.9 g/dL (31.6-35.5); Mean Corpuscular Hemoglobin 29.6 pg (28.0-33.3); Mean Platelet Volume 12.7 fL (9.4-12.4); Monocytes # 0.1 K/mcL (0.0-1.3); Monocytes % 2.3 %; Platelet Count 108 K/mcL (140-400); Red Blood Count 2.91 M/mcL (3.82-4.97); Red Cell Distribution Width 12.4 % (11.5-14.5); Segmented Neutrophils % 89.5 %
[2017-07-25 05:15] LABS: Hemoglobin A1C 5.5 %
[2017-07-25 05:20] LABS: Calcium 9.3 mg/dL (8.6-10.8); Potassium 4.5 mEq/L (3.5-4.5)
[2017-07-25] MEDS: *HR* Heparin 5,000 UNIT/ML VIAL SQ SCH ×3 (06:14→22:14)
[2017-07-25] MEDS: Famotidine 20 MG/2 ML VIAL IVP SCH ×2 (06:14→16:56)
[2017-07-25] MEDS: Acetaminophen 325 MG TABLET PO PRN ×2 (06:19→22:26)
[2017-07-25] MEDS: Budesonide/Formoterol 80/4.5 MDI IH SCH ×2 (07:48→20:40)
[2017-07-25] MEDS: Insulin LISPRO 300 UNITS/3 ML VIAL SQ SCH ×4 (08:06→22:15)
[2017-07-25] MEDS: Aspirin 325 MG TABLET PO SCH (08:07)
[2017-07-25] MEDS: Valsartan 80 MG TABLET PO SCH (08:07)
[2017-07-25] MEDS: Furosemide 20 MG TABLET PO SCH ×2 (08:07→16:56)
[2017-07-25] MEDS: Spironolactone 25 MG TABLET PO SCH (08:07)
[2017-07-25] MEDS: 0.9 % Sodium Chloride 1,000 ML IVC SCH (08:09)
[2017-07-25 10:04] LABS: ABG Base Excess 19 mEq/L (-2 to 3); ABG HCO3 48 mEq/L (21-27); ABG Oxygen Saturation 91 % (95-98); ABG PCO2 91 mmHg (35-45); ABG PH 7.33 pH Units (7.32-7.45); ABG PO2 71 mmHg (85-104); ABG TCO2 51 mEq/L (20-26)
[2017-07-25] MEDS: Nystatin POWDER 30 GM BOTTLE TP SCH ×2 (15:35→22:29)
[2017-07-25] MEDS: methylPREDNISolone 125 MG/2 ML VIAL IVP SCH (16:56)
--- NOTE | 2017-07-25 17:10 | Internal Med Progress Note ---
Date of Encounter: 07/25/17 Time of Encounter: 14:00 - Assessment and plan (1) COPD (chronic obstructive pulmonary disease) Current Visit: Yes Status: Acute Assessment and plan: No acute exacerbation, pt is stable. Pt with normal hypoxia and chronic respiratory failure. Pt is not requiring 02 above her normal demand. Home 02 at 4L, continue while admitted. Continue Duonebs, Symbicort, and Solu-Medrol 60mh IVP q8h is ordered, as well. Lungs are clear and diminished, no wheezing, rales, ronchi, or respiratory distress. Repeat ABG ordered this a.m., not completed or resulted at this time. Below result improved from arrival. ABG ABG pH 7.33 pH Units (7.32-7.45) 07/24/17 04:06 ABG pCO2 91 mmHg (35-45) H* 07/24/17 04:06 ABG pO2 71 mmHg (85-104) L 07/24/17 04:06 ABG O2 Saturation 91 % (95-98) L 07/24/17 04:06 PT/INR, D-dimer PT 11.2 Seconds (9.4-12.1) 07/23/17 17:40 Qualifiers: COPD type: COPD with acute exacerbation Qualified Code(s): J44.1 - Chronic obstructive pulmonary disease with (acute) exacerbation (2) Falls frequently Current Visit: Yes Status: Acute Assessment and plan: Family reports 3 falls in the last 2 days, one of which pt hit her head on the wall, creating a hole in the wall. She denies injury or LOC with any of the falls. She states that she feels very weak and tired, causing her falls. She reports chronic GARCIA due to COPD and has been in pulmonary rehab before with no success. She also reports that she has been in PT previously, but is unable to complete treatment due to COPD, GARCIA, and overall deconditioning. Pt uses a walker at home and uses home 02 at 4L via n/c. She denies neck pain, headache, or extremity injury from falls. Pt is non-adherent to cpap at home, pt with hypercapnia and hypoxia on ABG. Continue BiPap in hospital. PT recommends skilled services. Pt is awaiting approval at [facility]. Cervical Spine CT 07/23/17 17:57 IMPRESSION: No acute intracranial abnormality. No acute cervical spine fracture D/ / Loi Broussard / Loi Broussard Interpreting Provider: Loi Broussard Head CT 07/23/17 17:57 IMPRESSION: No acute intracranial abnormality. No acute cervical spine fracture D/ / Loi Broussard / Loi Broussard Interpreting Provider: Loi Broussard Chest X-Ray 07/23/17 17:58 IMPRESSION: No acute abnormality detected. Re- demonstration of marked right hemidiaphragmatic elevation. D/ / Kyree Lazaro MD / Kyree Lazaro MD Interpreting Provider: Kyree Lazaro MD (3) CKD (chronic kidney disease) stage 3, GFR 30-59 ml/min Current Visit: Yes Status: Chronic Assessment and plan: Continue to monitor labs throughout stay and avoid nephrotoxins. (4) Hypertension Current Visit: Yes Status: Chronic Assessment and plan: chronic. Continue home medications. Monitor VS per admission order. Well controlled. Qualifiers: Hypertension type: essential hypertension Qualified Code(s): I10 - Essential (primary) hypertension (5) Diabetes Current Visit: Yes Status: Chronic Assessment and plan: Hbg A1c 6.7% in April, 5.5% now. Continue SSI as needed, diabetic diet, and accuchecks achs. Qualifiers: Diabetes mellitus type: type 2 Diabetes mellitus complication status: with kidney complications Diabetes mellitus complication detail: with chronic kidney disease Diabetes mellitus joint terminal attack controller insulin use: without joint terminal attack controller use Chronic kidney disease stage: stage 3 (moderate) Qualified Code(s): E11.22 - Type 2 diabetes mellitus with diabetic chronic kidney disease; N18.3 - Chronic kidney disease, stage 3 (moderate) (6) Weakness Current Visit: Yes Status: Acute Assessment and plan: Plan as above. (7) Morbid obesity Current Visit: Yes Status: Chronic Assessment and plan: Chronic. Lifestyle modifications. - Time Spent With Patient less than 15 minutes - Subjective Interval history: Patient was seen and assessed that about 1400. She was alert and oriented, pleasant. She denies headache, blurred vision, neck pain, loss of consciousness with fall, chest pain, shortness of breath, abdominal pain, nausea, vomiting, or diarrhea. Pt states that she is feeling much better today. She states that she wants to go to [facility] instead of home. - Constitutional Vitals: Temp Pulse Resp BP Pulse Ox 98.0 F 72 18 118/70 100 07/25/17 14:53 07/25/17 14:53 07/25/17 15:56 07/25/17 14:53 07/25/17 15:56 General appearance: Present: cooperative, A&O X 3, morbidly obese, pleasant, no acute distress, answers questions appropriately - Head Head exam: Present: atraumatic, normal inspection, normocephalic - Eye Eye exam: Present: normal appearance, conjuntiva pink, sclera anicteric - ENT ENT exam: Present: mucous membranes moist, normal exam, normal external ear exam - Neck Neck exam general surgery: Present: normal inspection, supple, trachea midline - Respiratory Respiratory exam: Present: CTAB. Absent: accessory muscle use, rales, rhonchi, wheezes - Cardiovascular Cardiovascular exam: Present: RRR, +S1, +S2. Absent: diastolic murmur, gallop, rubs, systolic murmur - GI/Abdominal GI/Abdominal exam: Present: normal bowel sounds, soft, no peritoneal signs. Absent: distended, hepatomegaly, tenderness - Extremities Exam Extremities exam: Present: pedal edema, warm, radial pulses palpable and symmetrical. Absent: calf tenderness, cyanotic - Neurological Exam Neurological exam: Present: CN II-XII intact, oriented X3, no focal deficits. Absent: facial droop, speech deficit - Skin Skin exam: Present: dry, intact, normal color, warm. Absent: rash Internal Medicine: Result - Labs CBC & Chem 7: 07/25/17 04:08 07/25/17 04:08 Labs: Short CBC 07/25/17 Range/Units 04:08 WBC 5.6 (4.3-11.1) K/mcL Hgb 8.6 L (11.5-15.4) g/dL Hct 28.8 L (35.3-44.9) % Plt Count 108 L (140-400) K/mcL Neutrophils # 5.0 (1.6-8.9) K/mcL BMP 07/25/17 04:08 Sodium 141 Potassium 4.5 Chloride 87 L Carbon Dioxide 46 H* BUN 31 H D Creatinine 1.26 H Glucose 297 H Calcium 9.3 - ABG Interpretation ABG results: ABG ABG pH 7.33 pH Units (7.32-7.45) 07/24/17 04:06 ABG pCO2 91 mmHg (35-45) H* 07/24/17 04:06 ABG pO2 71 mmHg (85-104) L 07/24/17 04:06 ABG O2 Saturation 91 % (95-98) L 07/24/17 04:06 PT/INR, D-dimer PT 11.2 Seconds (9.4-12.1) 07/23/17 17:40 Consult Discharge Plan - Plan Referrals: Aayush Chase MD [Primary Care Provider] -
[2017-07-25 17:27] LABS: ABG Base Excess 19 mEq/L (-2 to 3); ABG HCO3 48 mEq/L (21-27); ABG Oxygen Saturation 95 % (95-98); ABG PCO2 92 mmHg (35-45); ABG PH 7.33 pH Units (7.32-7.45); ABG PO2 87 mmHg (85-104); ABG TCO2 51 mEq/L (20-26)
[2017-07-25] MEDS ORDERED: Gabapentin 300 MG CAPSULE PO SCH (21:00)
[2017-07-25] MEDS: Gabapentin 300 MG CAPSULE PO SCH (22:14)
[2017-07-25] MEDS: Latanoprost 2.5 ML BOTTLE BOTH EYES SCH (22:26)
[2017-07-26] MEDS: methylPREDNISolone 125 MG/2 ML VIAL IVP SCH ×2 (00:28→08:26)
[2017-07-26] MEDS: 0.9 % Sodium Chloride 1,000 ML IVC SCH (02:05)
[2017-07-26] MEDS: Ipratropium/Albuterol Neb 3 ML IH SCH ×4 (03:22→16:10)
[2017-07-26 04:59] LABS: Hematocrit 28.9 % (35.3-44.9); Hemoglobin 8.6 g/dL (11.5-15.4); Immature Granulocytes % 0.4 % (0-4); Lymphocytes # 0.3 K/mcL (0.6-4.6); Lymphocytes % 4.5 %; Mean Corpuscular HGB Conc 29.8 g/dL (31.6-35.5); Mean Corpuscular Hemoglobin 29.6 pg (28.0-33.3); Mean Corpuscular Volume 99.3 fL (83.0-100.0); Mean Platelet Volume 12.1 fL (9.4-12.4); Monocytes # 0.1 K/mcL (0.0-1.3); Monocytes % 1.9 %; Neutrophils # 6.8 K/mcL (1.6-8.9); Platelet Count 118 K/mcL (140-400); Red Blood Count 2.91 M/mcL (3.82-4.97); Red Cell Distribution Width 12.7 % (11.5-14.5); Segmented Neutrophils % 93.2 %
[2017-07-26 05:14] LABS: Calcium 9.1 mg/dL (8.6-10.8); Potassium 4.5 mEq/L (3.5-4.5)
[2017-07-26] MEDS: *HR* Heparin 5,000 UNIT/ML VIAL SQ SCH ×2 (06:26→14:55)
[2017-07-26] MEDS: Famotidine 20 MG/2 ML VIAL IVP SCH (06:27)
[2017-07-26] MEDS: Insulin LISPRO 300 UNITS/3 ML VIAL SQ SCH ×2 (08:26→12:27)
--- NOTE | 2017-07-26 08:26 | Discharge Summary ---
Date of Encounter: 07/26/17 Time of Encounter: 08:24 - Discharge Diagnosis (1) Acute on chronic respiratory failure with hypoxia and hypercapnia Priority: Primary Status: Acute Comments: Acute chronic hypoxic hypercapnic respiratory failure secondary to acute COPD exacerbation due to acute bacterial bronchitis (2) Anemia Priority: Secondary Status: Chronic Qualifiers: Anemia type: unspecified type Qualified Code(s): D64.9 - Anemia, unspecified (3) CKD (chronic kidney disease) stage 3, GFR 30-59 ml/min Priority: Secondary Status: Chronic (4) CHF (congestive heart failure) Priority: Secondary Status: Chronic Qualifiers: Congestive heart failure type: diastolic Congestive heart failure chronicity: chronic Qualified Code(s): I50.32 - Chronic diastolic (congestive ) heart failure (5) Hypertension Priority: Secondary Status: Chronic Qualifiers: Hypertension type: essential hypertension Qualified Code(s): I10 - Essential (primary) hypertension (6) Diabetes Priority: Secondary Status: Chronic Qualifiers: Diabetes mellitus type: type 2 Diabetes mellitus complication status: with kidney complications Diabetes mellitus complication detail: with chronic kidney disease Diabetes mellitus intermediate insulin use: without ferry terminal agent use Chronic kidney disease stage: stage 3 (moderate) Qualified Code(s): E11.22 - Type 2 diabetes mellitus with diabetic chronic kidney disease; N18.3 - Chronic kidney disease, stage 3 (moderate) (7) Morbid obesity Priority: Secondary Status: Chronic - Discharge Medications Prescriptions: Cefdinir [Omnicef] 300 mg PO BID #8 capsule predniSONE [PredniSONE] 10 mg PO DAILY 20 Days tablet Home Medications: Esomeprazole Magnesium [Nexium] 40 mg PO DAILY 04/06/16 [History] Furosemide [Lasix] 40 mg PO BID 04/06/16 [History] Glimepiride [Amaryl] 4 mg PO QAM 04/06/16 [History] Latanoprost [Xalatan] 1 drop BOTH EYES HS 04/06/16 [History] Simvastatin [Zocor] 40 mg PO HS 04/06/16 [History] SitaGLIPtin [Januvia] 100 mg PO DAILY 04/06/16 [History] Albuterol Sulfate [Albuterol Inhaler] 2 puff IH Q4H PRN 04/14/17 [History] Citalopram Hydrobromide [Citalopram HBr] 40 mg PO HS 04/14/17 [History] Docusate [Colace] 100 mg PO DAILY 04/14/17 [History] Gabapentin [Neurontin] 600 mg PO HS 04/14/17 [History] Valsartan [Diovan] 80 mg PO DAILY 04/14/17 [History] Spironolactone [Aldactone] 25 mg PO DAILY 07/24/17 [History] Cefdinir [Omnicef] 300 mg PO BID #8 capsule 07/26/17 [Rx] predniSONE [PredniSONE] 10 mg PO DAILY 20 Days tablet 07/26/17 [Rx] Allergies/Adverse Reactions: 3 Allergy/AdvReac Type Severity Reaction Status Date / Time hydrocodone [From Vicodin] AdvReac Nausea Verified 11/30/15 13:29 Hydromorphone [From Dilaudid] AdvReac Nausea Verified 11/30/15 13:29 Date of admission: 07/23/17 20:14 Primary care physician: Aayush Chase MD Consults: 07/23/17 20:58 Consult to Learning And Development Manager [CONS] Routine Reason for SW Consult: Home O2, Aide, and RN services 07/24/17 09:42 Consult to Occupational Therapy [CONS] Routine Comment: Evaluate, develop and implement POC Reason for Consult: evaluation Consult to Physical Therapy [CONS] Routine Comment: Evaluate, develop and implement POC Reason for Consult: evaluation - Patient Status Disposition: Transfer SNF Condition: Fair Overall status at discharge: patient is back to baseline - Discharge Instructions Follow Up With: Aayush Chase MD [Primary Care Provider] - Additional Instructions: Follow-up with pulmonary service within the next 3-4 weeks. Continue prednisone taper for 20 days. Complete 4 more days of cefdinir. Continue Lasix , oxygen therapy and BiPAP at night. - Diet and Activity Activity: increase activity as tolerated, wear oxygen at all times Diet: diabetic diet Hospital course: Ms. Cox is a 62 year old female with past medical history of COPD oxygen dependent, diastolic CHF, diabetes not insulin-dependent, fibromyalgia, hyperlipidemia and hypertension. She presented to the ED with complaints of generalized weakness and multiple falls. The Patient stated that she had several falls over the past 2-3 days prior to her admission. She denied loss of consciousness. She stated she hit her head but did not have any obvious injuries. She complained of generalized weakness and also difficulty walking. Symptoms were worse with exertion. She also complained of associated shortness of breath. Initial workup in the ED is significant for severe hypercapnia and hypoxia. ABG showed a pH of 7.3, PCO2 of 110, PO2 of 77. Patient was started on BiPAP. Chest x-ray did not show any acute abnormality. CT of the head did not show any acute intracranial abnormality. CT cervical spine did not show any acute fracture. Patient was started on DuoNeb breathing treatments, Solu-Medrol, Rocephin and Symbicort. The patient has been using BiPAP, she was also diagnosed in the past with diastolic CHF takes Lasix twice a day. Stable to be discharged - Time Spent with Patient Total time spent providing and/or coordinating discharge services: Greater than 30 minutes (40 min) - Constitutional Vitals: Temp Pulse Resp BP Pulse Ox 98.0 F 85 15 142/74 94 07/26/17 08:06 07/26/17 08:06 07/26/17 08:06 07/26/17 08:06 07/26/17 08:06 General appearance: Present: cooperative, A&O X 3, morbidly obese, pleasant, no acute distress, answers questions appropriately - Head Head exam: Present: atraumatic, normocephalic - Eye Eye exam: Present: PERRL, conjuntiva pink, sclera anicteric Pupils: Present: PERRL - Neck Neck exam general surgery: Present: supple, trachea midline. Absent: lymphadenopathy - Respiratory Respiratory exam: Present: decreased breath sounds, CTAB. Absent: accessory muscle use, rales, rhonchi, wheezes - Cardiovascular Cardiovascular exam: Present: RRR, +S1, +S2. Absent: diastolic murmur, gallop, rubs, systolic murmur - GI/Abdominal GI/Abdominal exam: Present: distended, normal bowel sounds, soft, no peritoneal signs. Absent: tenderness - Extremities Exam Extremities exam: Present: warm, radial pulses palpable and symmetrical. Absent : calf tenderness, cyanotic, pedal edema - Neurological Exam Neurological exam: Present: CN II-XII intact, oriented X3, no focal deficits. Absent: pronater drift, facial droop, speech deficit - Skin Skin exam: Present: dry, intact
[2017-07-26] MEDS: Valsartan 80 MG TABLET PO SCH (08:27)
[2017-07-26] MEDS: Furosemide 20 MG TABLET PO SCH (08:27)
[2017-07-26] MEDS: Spironolactone 25 MG TABLET PO SCH (08:27)
[2017-07-26] MEDS: Nystatin POWDER 30 GM BOTTLE TP SCH (08:27)
[2017-07-26] MEDS: Aspirin 325 MG TABLET PO SCH (08:27)
--- NOTE | 2017-07-26 08:37 | Physician Discharge Referral ---
ExtendedCare Referral Info Provider in Charge after Transfer: PCP Institutional Level of Care: Skilled - Diagnosis (1) Acute on chronic respiratory failure with hypoxia and hypercapnia Status: Acute (2) Anemia Status: Chronic (3) CKD (chronic kidney disease) stage 3, GFR 30-59 ml/min Status: Chronic (4) CHF (congestive heart failure) Status: Chronic (5) Hypertension Status: Chronic (6) Diabetes Status: Chronic (7) Morbid obesity Status: Chronic - Transfer Medications Prescriptions: Cefdinir [Omnicef] 300 mg PO BID #8 capsule predniSONE [PredniSONE] 10 mg PO DAILY 20 Days tablet Home Medications: Esomeprazole Magnesium [Nexium] 40 mg PO DAILY 04/06/16 [History] Furosemide [Lasix] 40 mg PO BID 04/06/16 [History] Glimepiride [Amaryl] 4 mg PO QAM 04/06/16 [History] Latanoprost [Xalatan] 1 drop BOTH EYES HS 04/06/16 [History] Simvastatin [Zocor] 40 mg PO HS 04/06/16 [History] SitaGLIPtin [Januvia] 100 mg PO DAILY 04/06/16 [History] Albuterol Sulfate [Albuterol Inhaler] 2 puff IH Q4H PRN 04/14/17 [History] Citalopram Hydrobromide [Citalopram HBr] 40 mg PO HS 04/14/17 [History] Docusate [Colace] 100 mg PO DAILY 04/14/17 [History] Gabapentin [Neurontin] 600 mg PO HS 04/14/17 [History] Valsartan [Diovan] 80 mg PO DAILY 04/14/17 [History] Spironolactone [Aldactone] 25 mg PO DAILY 07/24/17 [History] Cefdinir [Omnicef] 300 mg PO BID #8 capsule 07/26/17 [Rx] predniSONE [PredniSONE] 10 mg PO DAILY 20 Days tablet 07/26/17 [Rx] Allergies/Adverse Reactions: 3 Allergy/AdvReac Type Severity Reaction Status Date / Time hydrocodone [From Vicodin] AdvReac Nausea Verified 11/30/15 13:29 Hydromorphone [From Dilaudid] AdvReac Nausea Verified 11/30/15 13:29 - Respiratory Orders Smoking Cessation: Smoking cessation has been advised. For more information, call the [place] Tobacco Quit Line at 7-740-HJXN-NOW. - Advance Directives Code Status: Full Code - Diet Orders No Added Salt (KALA) House Supplement per Dietary: Follow-up with pulmonary service within the next 3-4 weeks. Continue prednisone taper for 20 days. Complete 4 more days of cefdinir. Continue Lasix , oxygen therapy and BiPAP at night. CERTIFICATION: I certify that the transfer of the above named patient to an Extended Care Facility is necessary for the continuing treatment of the diagnosis listed. The above information is true and accurate reflection of patient's current condition. Confidential - Redisclosure prohibited without a patient's written consent.
[2017-07-26 11:36] VITALS: BP 132/75
[2017-07-26] MEDS: Budesonide/Formoterol 80/4.5 MDI IH SCH (11:55)
[2017-07-26] MEDS ORDERED: Famotidine 20 MG TABLET PO SCH (18:00)
== END 2017-07-26 16:36 ==
LOC: EMEROO 17:29 → 3BNU 17:29 → SUATTDRO 20:14 → 3BNU 20:27
PROVIDERS: ADMIT Family Medicine; ATTEND Internal Medicine

== ENCOUNTER 2017-12-19 09:51 | Inpatient (IN) ==
--- NOTE | 2017-12-19 10:29 | Emergency Department Note ---
Disposition Clinical Impression: Dizziness Disposition: Still a Patient Condition: Fair Referrals: Aayush Chase MD [Primary Care Provider] - Forms: ED Satisfaction Letter General Adult HPI - General Chief complaint: ED Dizziness Stated complaint: lightheaded, dizzy Time Seen by Provider: 12/19/17 10:06 Source: patient, EMS Limitations: no limitations Nursing Notes Reviewed: Yes Vital Signs Reviewed: Yes - History of Present Illness HPI Narrative: 62 year old female with history of COPD, diabetes, hypertension, chronic knees pain presents with dizziness for 2 days. Pt stated it was mainly light headache. Worsening when changing position. She has vertical feeling sometimes. Pt reported she fell twice at home on her right foot. But she denied dizziness when fell. She complain of right foot pain and swelling since then. no hit head. No loss of consciousness. No chest pain. Baseline shortness of breath due to COPD. Pt is on home oxygen. Onset (ago): day(s) (2) Pain Scale: 8 - Related Data Home Medications Medication Instructions Recorded Confirmed Esomeprazole Magnesium [Nexium] 40 mg PO DAILY 04/06/16 07/24/17 Furosemide [Lasix] 40 mg PO BID 04/06/16 07/24/17 Glimepiride [Amaryl] 4 mg PO QAM 04/06/16 07/24/17 Latanoprost [Xalatan] 1 drop BOTH EYES HS 04/06/16 07/24/17 Simvastatin [Zocor] 40 mg PO HS 04/06/16 07/24/17 SitaGLIPtin [Januvia] 100 mg PO DAILY 04/06/16 07/24/17 Albuterol Sulfate [Albuterol 2 puff IH Q4H PRN 04/14/17 07/24/17 Inhaler] Citalopram Hydrobromide 40 mg PO HS 04/14/17 07/24/17 [Citalopram HBr] Docusate [Colace] 100 mg PO DAILY 04/14/17 07/24/17 Gabapentin [Neurontin] 600 mg PO HS 04/14/17 07/24/17 Valsartan [Diovan] 80 mg PO DAILY 04/14/17 07/24/17 Spironolactone [Aldactone] 25 mg PO DAILY 07/24/17 07/24/17 Previous Rx's Medication Instructions Recorded Cefdinir [Omnicef] 300 mg PO BID #8 capsule 07/26/17 predniSONE [PredniSONE] 10 mg PO DAILY 20 Days tablet 07/26/17 Allergies Allergy/AdvReac Type Severity Reaction Status Date / Time hydrocodone [From Vicodin] AdvReac Nausea Verified 12/19/17 10:04 Hydromorphone [From Dilaudid] AdvReac Nausea Verified 12/19/17 10:04 Constitutional: Denies: fever, chills, weakness Eyes: Denies: eye pain, eye discharge, vision change ENT ED: Denies: ear pain, throat pain, dental pain Cardiovascular: Reports: dyspnea on exertion. Denies: chest pain, palpitations Respiratory: Reports: dyspnea. Denies: cough, wheezes, hemoptysis Gastrointestinal: Denies: abdominal pain, nausea, vomiting Genitourinary: Denies: urgency, dysuria, frequency Musculoskeletal: Denies: back pain, neck pain Integumentary: Denies: rash, abrasion, lesions Neurological: Denies: headache, weakness, numbness Psychiatric: Denies: anxiety, depression Endocrine: Denies: fatigue, heat or cold intolerance Hematological/Lymphatic: Denies: easy bleeding, easy bruising Allergic/Immunologic: Denies: facial swelling, urticaria Past Medical History - Past Medical History Medical history: Reports: CHF, COPD, diabetes, fibromyalgia, hyperlipidemia, hypertension Surgical history: Reports: other (Right knee repair, EGD, tonsillectomy, colonoscopy) Psychiatric history: Reports: anxiety, depression - Social History Smoking Status: Never smoker Smokeless Tobacco Status: No Alcohol use: Reports: none Drug use: Reports: none Physical Exam - General Limitations: no limitations General appearance: alert, in no apparent distress - Head Head exam: atraumatic, normal inspection - Eye Eye exam: Present: normal appearance. Absent: scleral icterus, conjunctival injection - ENT ENT exam: normal exam - Neck Neck exam: Present: normal inspection, full ROM, trachea midline. Absent: tenderness - Chest Chest inspection: Present: normal inspection, symmetric chest wall rise. Absent : tenderness - Respiratory Respiratory exam: Present: normal lung sounds bilaterally. Absent: respiratory distress, wheezes - Cardiovascular Cardiovascular exam: Present: regular rate - Abdominal Exam Abdominal exam: Present: soft, Non-Tender - Expanded Lower Extremity Exam Foot/toe exam: Present: other (right foot swelling, bruise, tender to palpation) Neurovascular/Tendon exam: Present: normal capillary refill - Back Exam Back exam: Present: normal inspection, full ROM. Absent: tenderness - Neurological Exam Neurological exam: Present: alert, oriented X3 - Psychiatric Psychiatric exam: Present: normal affect, normal mood. Absent: depressed - Skin Skin exam: Present: warm, intact Course Vital Signs Temperature 98.1 F 12/19/17 09:53 Pulse Rate 89 12/19/17 09:53 Respiratory Rate 22 12/19/17 09:53 Blood Pressure 135/72 12/19/17 09:53 O2 Sat by Pulse Oximetry 96 12/19/17 09:53 Temperature 98.1 F 12/19/17 09:53 Pulse Rate 81 12/19/17 10:38 Respiratory Rate 20 12/19/17 10:38 Blood Pressure 144/64 12/19/17 10:38 O2 Sat by Pulse Oximetry 96 12/19/17 10:38 Oxygen Delivery Oxygen Delivery Nasal Cannula Medical Decision Making - [facility] Narrative Medical decision making narrative: 62 year old female with history of COPD, hypertension and diabetes presents with dizziness for the past two days. Pt stated it was mainly light headache. Changing position worsening the symptoms. She fell twice at home on her right side foot due to " knee gave out". complaining of right foot swelling and pain as well. Pt has baseline shortness of breath due to COPD. She is on home oxygen. Physical exam: bilateral lung sounds clear, right foot bruise, mild swelling, tender to palpation. Pt is on Lasix daily. Impression: dizziness. Plan : blood work, chest xray, Orthostatic BP. Gave report to Dr. Johnson - Lab Data Result diagrams: 12/19/17 10:30 12/19/17 10:30 Lab Results 12/19/17 12/19/17 Range/Units 10:30 10:30 WBC 7.9 (4.3-11.1) K/mcL RBC 2.96 L (3.82-4.97) M/mcL Hgb 8.5 L (11.5-15.4) g/dL Hct 29.6 L (35.3-44.9) % MCV 100.0 (83.0-100.0) fL MCH 28.7 (28.0-33.3) pg MCHC 28.7 L (31.6-35.5) g/dL RDW 13.1 (11.5-14.5) % Plt Count 100 L (140-400) K/mcL MPV 12.5 H (9.4-12.4) fL Immature Gran % 0.3 (0-4) % Seg Neutrophils % 78.0 % Lymphocytes % 13.1 % Monocytes % 8.3 % Eosinophils % 0.0 % Basophils % 0.3 % Neutrophils # 6.2 (1.6-8.9) K/mcL Lymphocytes # 1.0 (0.6-4.6) K/mcL Monocytes # 0.7 (0.0-1.3) K/mcL Eosinophils # 0.0 (0.0-0.6) K/mcL Basophils # 0.0 (0.0-0.2) K/mcL Platelet Estimate Normal (Normal) Sodium 144 (136-145) mEq/L Potassium 4.7 (3.5-5.1) mEq/L Chloride 100 (98-107) mEq/L Carbon Dioxide 40 H* (23-29) mEq/L BUN 63 H (8-23) mg/dL Creatinine 2.02 H (0.60-1.20) mg/dL Est GFR ( Amer) 30 L (> 60) Est GFR (Non-Af Amer) 25 L (> 60) BUN/Creatinine Ratio 31 H (6-26) Glucose 83 (70-105) mg/dL Calculated Osmolality 315 H (280-300) Calcium 9.2 (8.6-10.3) mg/dL Total Bilirubin 0.4 (0.3-1.0) mg/dL AST 10 L (13-39) Units/L ALT 11 (7-52) Units/L Alkaline Phosphatase 133 H (34-104) Units/L Serum Total Protein 6.9 (6.4-8.9) g/dL Albumin 3.9 (3.5-5.7) g/dL Globulin 3.0 (2.4-3.5) g/dL Albumin/Globulin Ratio 1.3 (1.1-2.2) S.B.A.R. - S.B.A.R. Situation: Demographics, MOA Background: Presenting Complaint, Relevant PMH, Meds, & Allergies Assessment: Vital Signs, Course and respsone to treatment, Exam Concerns, Patient/Family Expectation, Pertinant Lab Results, Outstanding Labs Recommendation: Barrier(s) to disposition, Recommendation based on pending studies, treatments, or consults Ivan Report Given to: Dr. Elizabeth Love Repor Time: 11:20
[2017-12-19 10:42] LABS: Basophils % 0.3 %; Hematocrit 29.6 % (35.3-44.9); Hemoglobin 8.5 g/dL (11.5-15.4); Immature Granulocytes % 0.3 % (0-4); Mean Corpuscular HGB Conc 28.7 g/dL (31.6-35.5)
[2017-12-19 10:43] LABS: Lymphocytes % 13.1 %; Mean Corpuscular Hemoglobin 28.7 pg (28.0-33.3); Mean Platelet Volume 12.5 fL (9.4-12.4); Monocytes # 0.7 K/mcL (0.0-1.3); Monocytes % 8.3 %; Neutrophils # 6.2 K/mcL (1.6-8.9); Platelet Count 100 K/mcL (140-400); Red Blood Count 2.96 M/mcL (3.82-4.97); Red Cell Distribution Width 13.1 % (11.5-14.5)
[2017-12-19] MEDS ORDERED: Acetaminophen 325 MG TABLET PO ONE (10:43)
[2017-12-19 11:06] LABS: Alanine Aminotransferase 11 Units/L (7-52); Albumin 3.9 g/dL (3.5-5.7); Albumin/Globulin Ratio 1.3 (1.1-2.2); Alkaline Phosphatase 133 Units/L (34-104); Aspartate Amino Transferase 10 Units/L (13-39); BUN/Creatinine Ratio 31 (6-26); Bilirubin,Total 0.4 mg/dL (0.3-1.0); Blood Urea Nitrogen 63 mg/dL (8-23); Calcium 9.2 mg/dL (8.6-10.3); Carbon Dioxide 40 mEq/L (23-29); Chloride 100 mEq/L (98-107); Glucose 83 mg/dL (70-105); Osmolality,Calculated 315 (280-300); Potassium 4.7 mEq/L (3.5-5.1); Sodium 144 mEq/L (136-145); Total Protein 6.9 g/dL (6.4-8.9); eGFR For African Americans 30 (> 60); eGFR For Non-African Americans 25 (> 60)
[2017-12-19 11:09] LABS: Platelet Estimate Normal (Normal)
[2017-12-19 12:01] LABS: Troponin I < 0.03 ng/mL (< 0.04)
--- NOTE | 2017-12-19 12:01 | Emergency Department Note ---
Disposition Clinical Impression: Dizziness, Weakness, MARIFER (acute kidney injury) Acute and chronic respiratory failure Qualifiers: Respiratory failure complication: unspecified whether with hypoxia or hypercapnia Qualified Code(s): J96.20 - Acute and chronic respiratory failure, unspecified whether with hypoxia or hypercapnia Pneumonia Qualifiers: Pneumonia type: due to unspecified organism Laterality: left Lung location: unspecified part of lung Qualified Code(s): J18.9 - Pneumonia, unspecified organism Disposition: Admitted As Inpatient Condition: Fair Time of Disposition: 12:38 General Adult HPI - General Chief complaint: ED Dizziness Stated complaint: lightheaded, dizzy Time Seen by Provider: 12/19/17 10:06 Source: patient, EMS Limitations: no limitations Nursing Notes Reviewed: Yes Vital Signs Reviewed: Yes - History of Present Illness Pain Scale: 8 - Related Data Home Medications Medication Instructions Recorded Confirmed Esomeprazole Magnesium [Nexium] 40 mg PO DAILY 04/06/16 12/19/17 Furosemide [Lasix] 40 mg PO BID 04/06/16 12/19/17 Glimepiride [Amaryl] 4 mg PO QAM 04/06/16 12/19/17 Latanoprost [Xalatan] 1 drop BOTH EYES HS 04/06/16 12/19/17 Simvastatin [Zocor] 40 mg PO HS 04/06/16 12/19/17 SitaGLIPtin [Januvia] 100 mg PO DAILY 04/06/16 12/19/17 Albuterol Sulfate [Albuterol 2 puff IH Q4H PRN 04/14/17 12/19/17 Inhaler] Citalopram Hydrobromide 40 mg PO HS 04/14/17 12/19/17 [Citalopram HBr] Docusate [Colace] 100 mg PO DAILY 04/14/17 12/19/17 Gabapentin [Neurontin] 600 mg PO HS 04/14/17 12/19/17 Valsartan [Diovan] 80 mg PO DAILY 04/14/17 12/19/17 Spironolactone [Aldactone] 25 mg PO DAILY 07/24/17 12/19/17 Brimonidine 0.2% [Alphagan] 1 drop BOTH EYES AD 12/19/17 12/19/17 Propylene Glycol/Peg 400 [Systane 1 drop OP QID 12/19/17 12/19/17 Ultra 0.4-0.3% Eye Drp] clonazePAM [Klonopin] 0.5 mg PO BID PRN 12/19/17 12/19/17 Allergies Allergy/AdvReac Type Severity Reaction Status Date / Time hydrocodone [From Vicodin] AdvReac Nausea Verified 12/19/17 12:48 Hydromorphone [From Dilaudid] AdvReac Nausea Verified 12/19/17 12:48 Constitutional: Denies: fever, chills, weakness Eyes: Denies: eye pain, eye discharge, vision change ENT ED: Denies: ear pain, throat pain, dental pain Cardiovascular: Reports: dyspnea on exertion. Denies: chest pain, palpitations Respiratory: Reports: dyspnea. Denies: cough, wheezes, hemoptysis Gastrointestinal: Denies: abdominal pain, nausea, vomiting Genitourinary: Denies: urgency, dysuria, frequency Musculoskeletal: Denies: back pain, neck pain Integumentary: Denies: rash, abrasion, lesions Neurological: Denies: headache, weakness, numbness Psychiatric: Denies: anxiety, depression Endocrine: Denies: fatigue, heat or cold intolerance Hematological/Lymphatic: Denies: easy bleeding, easy bruising Allergic/Immunologic: Denies: facial swelling, urticaria Past Medical History - Past Medical History Medical history: Reports: CHF, COPD, diabetes, fibromyalgia, hyperlipidemia, hypertension Surgical history: Reports: other (Right knee repair, EGD, tonsillectomy, colonoscopy) Psychiatric history: Reports: anxiety, depression - Social History Smoking Status: Never smoker Smokeless Tobacco Status: No Alcohol use: Reports: none Drug use: Reports: none Physical Exam - General Limitations: no limitations General appearance: alert, in no apparent distress Course Course Narrative: Assumed care from KATHERYN Flores. Briefly, patient is a 62-year-old female who presents with frequent falls secondary to being lightheaded and dizzy. Patient has a history of COPD and is on 4 L of oxygen chronically. Apparently, patient has very long tubing at home. - Reevaluation(s) Reevaluation #1: Chest x-ray shows possible left lower lobe pneumonia. We will go ahead and cover with a dose of Levaquin. Patient's VBG shows a PCO2 of 90. Patient is somewhat somnolent on exam. BiPAP ordered. We will admit for acute on chronic respiratory failure, aching I , generalized weakness and frequent falls. I discussed with hospitalist Dr. St who has accepted patient for admission. Time: 12:35 Reevaluation #2: Upon reassessment, patient is resting comfortably on the BiPAP. She is easily awakened. Responding appropriately. Patient stable for the floor. Time: 13:37 Vital Signs Temperature 98.1 F 12/19/17 09:53 Pulse Rate 89 12/19/17 09:53 Respiratory Rate 22 12/19/17 09:53 Blood Pressure 135/72 12/19/17 09:53 O2 Sat by Pulse Oximetry 96 12/19/17 09:53 Temperature 98.1 F 12/19/17 09:53 Pulse Rate 72 12/19/17 13:11 Respiratory Rate 16 12/19/17 13:11 Blood Pressure 134/61 12/19/17 13:11 O2 Sat by Pulse Oximetry 98 12/19/17 13:11 Oxygen Delivery Oxygen Delivery Room Air Medical Decision Making - Medical Records Medical records reviewed: Yes I reviewed the patient's medical records. - Lab Data Lab results reviewed: Yes I reviewed the patient's lab results. Result diagrams: 12/19/17 10:30 12/19/17 10:30 Lab Results 12/19/17 12/19/17 12/19/17 Range/Units 10:30 10:30 10:30 WBC 7.9 (4.3-11.1) K/mcL RBC 2.96 L (3.82-4.97) M/mcL Hgb 8.5 L (11.5-15.4) g/dL Hct 29.6 L (35.3-44.9) % MCV 100.0 (83.0-100.0) fL MCH 28.7 (28.0-33.3) pg MCHC 28.7 L (31.6-35.5) g/dL RDW 13.1 (11.5-14.5) % Plt Count 100 L (140-400) K/mcL MPV 12.5 H (9.4-12.4) fL Immature Gran % 0.3 (0-4) % Seg Neutrophils % 78.0 % Lymphocytes % 13.1 % Monocytes % 8.3 % Eosinophils % 0.0 % Basophils % 0.3 % Neutrophils # 6.2 (1.6-8.9) K/mcL Lymphocytes # 1.0 (0.6-4.6) K/mcL Monocytes # 0.7 (0.0-1.3) K/mcL Eosinophils # 0.0 (0.0-0.6) K/mcL Basophils # 0.0 (0.0-0.2) K/mcL Platelet Estimate Normal (Normal) VBG pH (7.32-7.42) pH Units VBG pCO2 (41-51) mmHg VBG pO2 (25-50) mmHg VBG HCO3 (21-27) mEq/L Sodium 144 (136-145) mEq/L Potassium 4.7 (3.5-5.1) mEq/L Chloride 100 (98-107) mEq/L Carbon Dioxide 40 H* (23-29) mEq/L BUN 63 H (8-23) mg/dL Creatinine 2.02 H (0.60-1.20) mg/dL Est GFR ( Amer) 30 L (> 60) Est GFR (Non-Af Amer) 25 L (> 60) BUN/Creatinine Ratio 31 H (6-26) Glucose 83 (70-105) mg/dL Calculated Osmolality 315 H (280-300) Calcium 9.2 (8.6-10.3) mg/dL Total Bilirubin 0.4 (0.3-1.0) mg/dL AST 10 L (13-39) Units/L ALT 11 (7-52) Units/L Alkaline Phosphatase 133 H (34-104) Units/L Troponin I < 0.03 (< 0.04) ng/mL B-Natriuretic Peptide 289 H (Less than 100) pg/mL Serum Total Protein 6.9 (6.4-8.9) g/dL Albumin 3.9 (3.5-5.7) g/dL Globulin 3.0 (2.4-3.5) g/dL Albumin/Globulin Ratio 1.3 (1.1-2.2) 12/19/17 Range/Units 12:24 WBC (4.3-11.1) K/mcL RBC (3.82-4.97) M/mcL Hgb (11.5-15.4) g/dL Hct (35.3-44.9) % MCV (83.0-100.0) fL MCH (28.0-33.3) pg MCHC (31.6-35.5) g/dL RDW (11.5-14.5) % Plt Count (140-400) K/mcL MPV (9.4-12.4) fL Immature Gran % (0-4) % Seg Neutrophils % % Lymphocytes % % Monocytes % % Eosinophils % % Basophils % % Neutrophils # (1.6-8.9) K/mcL Lymphocytes # (0.6-4.6) K/mcL Monocytes # (0.0-1.3) K/mcL Eosinophils # (0.0-0.6) K/mcL Basophils # (0.0-0.2) K/mcL Platelet Estimate (Normal) VBG pH 7.25 L (7.32-7.42) pH Units VBG pCO2 92 H* (41-51) mmHg VBG pO2 88 H (25-50) mmHg VBG HCO3 40 H (21-27) mEq/L Sodium (136-145) mEq/L Potassium (3.5-5.1) mEq/L Chloride (98-107) mEq/L Carbon Dioxide (23-29) mEq/L BUN (8-23) mg/dL Creatinine (0.60-1.20) mg/dL Est GFR ( Amer) (> 60) Est GFR (Non-Af Amer) (> 60) BUN/Creatinine Ratio (6-26) Glucose (70-105) mg/dL Calculated Osmolality (280-300) Calcium (8.6-10.3) mg/dL Total Bilirubin (0.3-1.0) mg/dL AST (13-39) Units/L ALT (7-52) Units/L Alkaline Phosphatase (34-104) Units/L Troponin I (< 0.04) ng/mL B-Natriuretic Peptide (Less than 100) pg/mL Serum Total Protein (6.4-8.9) g/dL Albumin (3.5-5.7) g/dL Globulin (2.4-3.5) g/dL Albumin/Globulin Ratio (1.1-2.2) - Radiology Data Radiology results reviewed: Yes I reviewed the patient's radiology results. Chest X-Ray 12/19/17 10:12 IMPRESSION: New patchy left-sided airspace disease which may be due to pneumonia but is nonspecific and follow-up to ensure resolution is recommended. D/ / Marck Gillis MD / Marck Gillis MD Interpreting Provider: Marck Gillis MD Foot X-Ray 12/19/17 10:41 IMPRESSION: No acute osseous abnormality. D/ / James Becker MD / James Becker MD Interpreting Provider: James Becker MD Cervical Spine CT 12/19/17 11:09 IMPRESSION: No acute abnormality of the cervical spine. D/ / Donell Abad MD / Donell Abad MD Interpreting Provider: Donell Abad MD Head CT 12/19/17 11:09 IMPRESSION: No acute intracranial abnormality. D/ / Tk Gray MD / Tk Gray MD Interpreting Provider: Tk Gray MD Attestation Statement - Attestation Attestation: I, Tod Johnson DO, examined this patient [id number] and my medical decision-making was reviewed with Renae Lind DO , Resident Physician. I agree with the documented findings, disposition and treatment plan as described except to the extent set forth below. Please see my progress notes for details. 62-year-old female presents to emergency room for evaluation of shortness of breath, weakness, falls over the last several weeks. Patient said that over the last several weeks every time she gets up she feels lightheaded and goes down her legs give out. Patient does have oxygen at home with over [address] in place. She does have known COPD. She is oxygen dependent. Patient denies any other trauma or injury. Denies any fevers or chills chest pain headache vision changes nausea vomiting or diarrhea. She has had shortness of breath. She does have a history of anemia that is managed by her primary care provider. She was just started on increased doses of iron secondary to low hemoglobin again within the last week. Patient has no known source to the anemia at this time. Vital signs remained stable here in the emergency room. Symptoms reviewed at the time of my evaluation of the patient. Initially the patient was seen by the mid-level provider and screening labs were started at that time. We took over care of possibly on a happened of the treatment course. CT of the head and cervical spine were added on second or the falls and intermittent confusion. Pulses symptoms do appear to be secondary to hypercapnic CO2 retention. Patient does use too much tubing at home and most likely does not receive her normal 4 L of oxygen by nasal cannula. Patient's lungs do have some intermittent wheezing noted. Breathing treatments and steroids will be given. EKG showed stable presentation troponin and BNP in the rest of her screening laboratory workup do appear to be relatively unremarkable. Chest x-ray and imaging modalities were reviewed. Electively, patient was recommended for admission and she is accommodating request at this point. Patient does not require nitroglycerin. She was given aspirin as well as subhepatic control here in the emergency room. Detailed documentation of the physical exam, medical intervention, medical decision-making, consultation and disposition will be documented in the resident physician's note. No critical care was applied to this patient's treatment course. BiPAP will be applied to help with symptomatic control at this point. Patient is otherwise clinically stable. 1235 Patient has chronic anemia with a hemoglobin of 8.5. Acute on chronic renal insufficiency. BNP that is slightly elevated. BiPAP is helping with the patient's symptoms. No acute signs of confusion or altered mentation this point. Patient does have a VBG that shows mild hypercapnic presentation. pt is still at baseline but because of the pulmonary history and the patient may need intubation but as it is right now she is tolerating the bipap and will be evaluated closely. 1325 Patient is on the BiPAP without any difficulty. Patient wakes up easily and 600 on and left upper arms without any acute distress. Patient does appear to responsive with BiPAP. She may stone intubation. Patient otherwise currently stable.
[2017-12-19 12:30] LABS: VBG HCO3 40 mEq/L (21-27); VBG PCO2 92 mmHg (41-51); VBG PH 7.25 pH Units (7.32-7.42); VBG PO2 88 mmHg (25-50)
[2017-12-19] MEDS ORDERED: Levofloxacin 750 MG/150 ML 750 MG/150 ML BAG IVPB ONE (13:39)
[2017-12-19] MEDS ORDERED: Naloxone 0.4 MG/ML INJ IVP PRN (15:05)
[2017-12-19] MEDS ORDERED: 0.9 % Sodium Chloride 500 ML IVC ONE (15:07)
[2017-12-19] MEDS ORDERED: clonazePAM 0.5 MG TABLET PO PRN (15:15)
[2017-12-19] MEDS ORDERED: 0.9 % Sodium Chloride 1,000 ML IVC SCH (15:15)
--- NOTE | 2017-12-19 15:15 | Internal Med History&Physical ---
<ShiloJorge - Last Filed: 12/19/17 19:50> Date of Encounter: 12/19/17 Time of Encounter: 14:00 Assessment and Plan (1) Dizziness Current visit: Yes Status: Acute Patient appeared dehydrated on exam. Creatinine level was elevated at 2.02. EKG showed sinus rhythm with no ischemic changes. Neuro exam normal. Her dizziness most likely due to dehydration or vasovagal. - 500 ml bolus NS fluid. - Maintenance fluids of 100 mls/hr. Reassess kidney function tomorrow. (2) Pneumonia Current visit: Yes Status: Acute CXR shows new patchy L air space disease which may be secondary to PNA. She denies fever, but admits to a change in sputum color in the past 2 days as well as a sick contact at home. She was started on levaquin in the ED. Blood cultures were ordered after antibiotics were started. Given her history of COPD , I will continue the levaquin for now. Qualifiers: Pneumonia type: due to unspecified organism Laterality: left Lung location: unspecified part of lung Qualified Code(s): J18.9 - Pneumonia, unspecified organism (3) MARIFER (acute kidney injury) Current visit: Yes Status: Acute Creatinine level at 2.02. Patient appears to be dehydrated. - 500 ml bolus NS fluid. - Maintenance fluids of 100 mls/hr. Reassess kidney function tomorrow. (4) COPD (chronic obstructive pulmonary disease) Current visit: No Status: Acute Patient on 4 L oxygen as well as Bipap. Qualifiers: COPD type: COPD with acute exacerbation Qualified Code(s): J44.1 - Chronic obstructive pulmonary disease with (acute) exacerbation (6) DVT prophylaxis Current visit: No Status: Acute - Heparin 5000 U SQ Q12hr. Internal Medicine - H&P: HPI Chief complaint: Dizziness Admitted From: Emergency Dept History of present illness: Ms. Cox is a 62 year old female with a PMH of CHF, COPD, DM, fibromyalgia, HLD, nd HTN that presents for dizziness. Symptoms began 2 days ago. Patient says that she would become dizzy every time she would stand up from a sitting position. She claims to have fallen 3 times as a result inside her home. She denies any chest and admits to minor SOB before falling down. She denies any syncope. She says that she did not hit her head on the ground when she fell. The dizziness would last 2-3 hours before subsiding. She admits to a productive cough, but says that is her baseline due to her COPD. She does mention that her sputum color changed to green in the last 2 days. She denies having a fever. Admits her has been sick at home. She says that she adequately hydrates herself and has been eating well. She denies any dysuria or hematuria. She denies any hematemesis or hematochezia. Denies nausea, vomiting, diarrhea, or constipation. Past Med Surg Social Fam HX - Past Medical History Medical history: CHF, COPD, diabetes, fibromyalgia, hyperlipidemia, hypertension Psychiatric history: anxiety, depression - Past Surgical History Surgical History: other - Social History Smoking Status: Never smoker Smokeless Tobacco Status: No Alcohol use: none Drug use: none - Family History Father Family Member Ethnicity: Non- Living Status: Hx Family Cardiac Disorders: Yes (RI, HTN) Brother Family Member Ethnicity: Non- Living Status: Still Living Hx Family GI Disorders: Yes (Crohn's disease) Sister Family Member Ethnicity: Non- Living Status: Hx Family Cardiac Disorders: Yes (RI, HTN) Mother Adopted: No Family Member Ethnicity: Non- Living Status: Hx Family Cardiac Disorders: Yes (HTN, CHF) Hx Family Respiratory Disorders: Yes (COPD) Hx Family Cancer: Yes (skin) Hx Family GI Disorders: No Hx Family Endocrine Disorder: Yes (DM) Hx Family Neuromuscular Disorders: No Hx Family Neurologic Disorders: Yes (CVA with rt sided weakness) Hx Family HEENT Disorders: Yes ([place]) Hx Family Autoimmune Disorders: No Internal Medicine - H&P: Meds Esomeprazole Magnesium [Nexium] 40 mg PO DAILY 04/06/16 [History] Furosemide [Lasix] 40 mg PO BID 04/06/16 [History] Glimepiride [Amaryl] 4 mg PO QAM 04/06/16 [History] Latanoprost [Xalatan] 1 drop BOTH EYES HS 04/06/16 [History] Simvastatin [Zocor] 40 mg PO HS 04/06/16 [History] SitaGLIPtin [Januvia] 100 mg PO DAILY 04/06/16 [History] Albuterol Sulfate [Albuterol Inhaler] 2 puff IH Q4H PRN 04/14/17 [History] Citalopram Hydrobromide [Citalopram HBr] 40 mg PO HS 04/14/17 [History] Docusate [Colace] 100 mg PO DAILY 04/14/17 [History] Gabapentin [Neurontin] 600 mg PO HS 04/14/17 [History] Valsartan [Diovan] 80 mg PO DAILY 04/14/17 [History] Spironolactone [Aldactone] 25 mg PO DAILY 07/24/17 [History] Brimonidine 0.2% [Alphagan] 1 drop BOTH EYES AD 12/19/17 [History] Propylene Glycol/Peg 400 [Systane Ultra 0.4-0.3% Eye Drp] 1 drop OP QID [History] clonazePAM [Klonopin] 0.5 mg PO BID PRN 12/19/17 [History] 3 Allergy/AdvReac Type Severity Reaction Status Date / Time hydrocodone [From Vicodin] AdvReac Nausea Verified 12/19/17 12:48 Hydromorphone [From Dilaudid] AdvReac Nausea Verified 12/19/17 12:48 All Systems PM: A 10-system review of systems was performed and is negative for pertinent findings except as documented above in the HPI. - Constitutional Constitutional: fatigue, falls, no fever(s) - EENT Eyes: no change in vision, no discharge, no pain, no photophobia Nose, mouth and throat: dry mouth, no lip swelling, no mouth lesions, no nasal discharge - Cardiovascular Cardiovascular ROS IM: no chest pain, no diaphoresis, no dyspnea, no lightheadedness, no palpitations, no syncope - Respiratory Respiratory: cough, dyspnea, change in phlegm color, no wheezing, no pain on inspiration - Gastrointestinal Gastrointestinal: no abdominal pain, no diarrhea, no hematemesis, no hematochezia, no melena, no nausea, no vomiting - Genitourinary Genitourinary: no change in urinary stream, no dysuria, no flank pain, no hematuria, no urinary frequency, no urinary incontinence - Musculoskeletal Musculoskeletal ROS IM: muscle weakness, myalgias, numbness, tingling - Neurological Neurological ROS: dizziness, frequent falls, weakness, no focal weakness - Constitutional Vitals: Temp Pulse Resp BP Pulse Ox 98.1 F 76 25 139/56 97 12/19/17 09:53 12/19/17 13:59 12/19/17 13:59 12/19/17 13:59 12/19/17 13:59 General appearance: Present: A&O X 3, morbidly obese, answers questions appropriately - Head Head exam: Present: atraumatic, normocephalic - Eye Eye exam: Present: PERRL, conjuntiva pink, sclera anicteric Pupils: Present: PERRL - ENT ENT exam: Present: mucous membranes dry, normal oropharynx - Respiratory Respiratory exam: Present: CTAB. Absent: accessory muscle use, rales, rhonchi, wheezes - Cardiovascular Cardiovascular exam: Present: RRR, +S1, +S2. Absent: diastolic murmur, gallop, rubs, systolic murmur - GI/Abdominal GI/Abdominal exam: Present: normal bowel sounds, soft, no peritoneal signs. Absent: distended, guarding, rebound, tenderness - Extremities Exam Extremities exam: Present: normal capillary refill, pedal edema (+1 pitting edema b/l), tenderness (Generalized tenderness in lower extremities b/l. ), radial pulses palpable and symmetrical. Absent: cyanotic Additional comments: Brusing noted on R and L tarsal region. - Neurological Exam Neurological exam: Present: CN II-XII intact, oriented X3, no focal deficits, strengths equal and symetr throughout. Absent: pronater drift, facial droop, speech deficit Additional comments: Decreased sensation in upper and lower extremity on L side. Internal Med - H&P Results - Labs CBC & Chem 7: 12/19/17 10:30 12/19/17 10:30 <Erlin Marroquin Meek - Last Filed: 12/20/17 12:27> Date of Encounter: 12/20/17 Internal Medicine - H&P: HPI History of present illness: Ms. Cox is a 62 year old female All Systems PM: A 10-system review of systems was performed and is negative for pertinent findings except as documented above in the HPI. - Constitutional Vitals: Temp Pulse Resp BP Pulse Ox 97.7 F 87 16 102/61 98 12/20/17 11:36 12/20/17 11:36 12/20/17 11:36 12/20/17 11:36 12/20/17 11:36 Internal Med - H&P Results - Labs CBC & Chem 7: 12/20/17 05:43 12/20/17 05:43 Labs: Short CBC 12/20/17 Range/Units 05:43 WBC 7.7 (4.3-11.1) K/mcL Hgb 8.2 L (11.5-15.4) g/dL Hct 29.1 L (35.3-44.9) % Plt Count 108 L (140-400) K/mcL Neutrophils # 5.7 (1.6-8.9) K/mcL BMP 12/20/17 05:43 Sodium 145 Potassium 4.7 Chloride 103 Carbon Dioxide 39 H BUN 48 H Creatinine 1.45 H Glucose 46 L Calcium 9.0 - Attending Attestation I examined this patient and my medical decision-making was reviewed with the Resident Physician. I agree with the documented findings, disposition and treatment plan as described except to the extent set forth below.
[2017-12-19] MEDS: *HR* Heparin 5,000 UNIT/ML VIAL SQ SCH (16:42)
[2017-12-19] MEDS: Valsartan 80 MG TABLET PO SCH (16:42)
[2017-12-19] MEDS: Spironolactone 25 MG TABLET PO SCH (16:42)
[2017-12-19] MEDS: Artificial Tears SOLN 15 ML BOTTLE OP SCH ×2 (16:43→20:42)
--- NOTE | 2017-12-19 20:24 | Electrocardiograph Report ---
[place] [id number] Test Date: 2017-12-19 Pat Name: Carmen Cox Department: 102 Room: 3B33 Gender: F [employer]ical [employer]: : 1955 Requested By: Chivo Flores Order Number: [id number] Reading MD: Diana Metz Measurements Intervals [place] Rate: 78 P: 102 DE: 169 QRS: -17 QRSD: 108 T: 65 QT: 352 QTc: 386 Interpretive Statements SINUS RHYTHM INCOMPLETE RIGHT BUNDLE BRANCH BLOCK [90+ ms QRS DURATION, TERMINAL R IN V1/V2, 40+ ms S IN I/aVL/V4/V5/V6] Electronically Signed On 12-19-2017 20:23:16 EDT by Diana Metz
[2017-12-19] MEDS: Latanoprost 2.5 ML BOTTLE BOTH EYES SCH (20:44)
[2017-12-19] MEDS: Gabapentin 300 MG CAPSULE PO SCH (20:44)
[2017-12-20] MEDS: *HR* Heparin 5,000 UNIT/ML VIAL SQ SCH ×2 (05:45→17:26)
[2017-12-20 06:29] LABS: Hemoglobin 8.2 g/dL (11.5-15.4); Mean Corpuscular Hemoglobin 29.2 pg (28.0-33.3); Red Blood Count 2.81 M/mcL (3.82-4.97)
[2017-12-20 06:33] LABS: Basophils % 0.4 %; Hematocrit 29.1 % (35.3-44.9); Immature Granulocytes % 0.4 % (0-4); Lymphocytes # 1.2 K/mcL (0.6-4.6); Lymphocytes % 15.8 %; Mean Corpuscular HGB Conc 28.2 g/dL (31.6-35.5); Mean Corpuscular Volume 103.6 fL (83.0-100.0); Mean Platelet Volume 12.9 fL (9.4-12.4); Monocytes # 0.7 K/mcL (0.0-1.3); Monocytes % 9.1 %; Neutrophils # 5.7 K/mcL (1.6-8.9); Platelet Count 108 K/mcL (140-400); Red Cell Distribution Width 13.2 % (11.5-14.5); Segmented Neutrophils % 74.3 %
[2017-12-20 06:35] LABS: Potassium 4.7 mEq/L (3.5-5.1)
[2017-12-20 07:24] LABS: Hypochromasia Present (Not Present); Platelet Estimate Decreased (Normal)
[2017-12-20] MEDS: D5% in 0.9% NACL 1,000 ML IVC SCH (09:59)
[2017-12-20] MEDS: Artificial Tears SOLN 15 ML BOTTLE OP SCH ×4 (10:00→20:43)
[2017-12-20] MEDS: Spironolactone 25 MG TABLET PO SCH (10:00)
[2017-12-20] MEDS: Valsartan 80 MG TABLET PO SCH (10:00)
--- NOTE | 2017-12-20 10:16 | Internal Med Progress Note ---
<Jorge Lao - Last Filed: 12/20/17 14:25> Date of Encounter: 12/20/17 Time of Encounter: 08:40 - Assessment and plan (1) Dizziness Current Visit: Yes Status: Acute Assessment and plan: Most likely secondary to dehydration versus vasovagal. Creatinine level is improved from 2.02 to 1.45. Continue oral fluid intake and maintenance fluids IV. (2) Pneumonia Current Visit: Yes Status: Resolved Assessment and plan: Chest x-ray shows patchy left air space. Currently on Levaquin day #2. White blood cell count normal at 7.7. Patient does not present as clinically having pneumonia. She displayed no wheezing on exam and denied any shortness of breath. Said her cough has improved. We will discontinue Levaquin today. Qualifiers: Pneumonia type: due to unspecified organism Laterality: left Lung location: unspecified part of lung Qualified Code(s): J18.9 - Pneumonia, unspecified organism (3) MARIFER (acute kidney injury) Current Visit: Yes Status: Acute Assessment and plan: Creatinine is improved from 2.02 to 1.45. Continue maintenance fluids. (4) COPD (chronic obstructive pulmonary disease) Current Visit: No Status: Acute Assessment and plan: On 4 L of oxygen and BiPAP. Qualifiers: COPD type: COPD with acute exacerbation Qualified Code(s): J44.1 - Chronic obstructive pulmonary disease with (acute) exacerbation (5) Hypoglycemia Current Visit: Yes Status: Acute Assessment and plan: Blood glucose levels has dropped from 108 to 46. Patient said that she did not start eating until last night. I switched her maintenance fluids to D5 for the time being. (6) DVT prophylaxis Current Visit: No Status: Acute Assessment and plan: Heparin 5000 U SQ Q12hr. - Subjective Interval history: Ms. Cox is a 62 year old female with a PMH of CHF, COPD, DM, fibromyalgia, HLD, nd HTN that presents for dizziness. Patient says her lightheadedness has improved since yesterday although she still says she feels a little bit lightheaded. She says her coughing has improved since yesterday.She denies any wheezing, shortness of breath, fever, nausea, or vomiting. - Constitutional Vitals: Temp Pulse Resp BP Pulse Ox 98.7 F 84 15 133/62 95 12/20/17 07:23 12/20/17 07:23 12/20/17 07:23 12/20/17 07:23 12/20/17 09:50 General appearance: Present: A&O X 3, morbidly obese, answers questions appropriately - ENT ENT exam: Present: mucous membranes moist - Respiratory Respiratory exam: Present: CTAB. Absent: accessory muscle use, rales, rhonchi, wheezes - Cardiovascular Cardiovascular exam: Present: RRR, +S1, +S2. Absent: diastolic murmur, gallop, rubs, systolic murmur - GI/Abdominal GI/Abdominal exam: Present: normal bowel sounds, soft, no peritoneal signs. Absent: distended, tenderness - Extremities Exam Extremities exam: Present: full ROM, normal capillary refill, pedal edema (+1 pitting edema bilaterally in lower extremities.), tenderness (Generalized tenderness in the lower extremities.), warm, radial pulses palpable and symmetrical. Absent: cyanotic Internal Medicine: Result - Labs CBC & Chem 7: 12/20/17 05:43 12/20/17 05:43 Labs: Short CBC 12/20/17 Range/Units 05:43 WBC 7.7 (4.3-11.1) K/mcL Hgb 8.2 L (11.5-15.4) g/dL Hct 29.1 L (35.3-44.9) % Plt Count 108 L (140-400) K/mcL Neutrophils # 5.7 (1.6-8.9) K/mcL BMP 12/20/17 05:43 Sodium 145 Potassium 4.7 Chloride 103 Carbon Dioxide 39 H BUN 48 H Creatinine 1.45 H Glucose 46 L Calcium 9.0 Consult Discharge Plan - Plan Referrals: Aayush Chase MD [Primary Care Provider] - <Olvin Randhawa - Last Filed: 12/20/17 15:17> Date of Encounter: 12/20/17 - Assessment and plan (1) Dizziness Current Visit: Yes Status: Acute (2) Pneumonia Current Visit: Yes Status: Resolved Qualifiers: Pneumonia type: due to unspecified organism Laterality: left Lung location: unspecified part of lung Qualified Code(s): J18.9 - Pneumonia, unspecified organism (3) MARIFER (acute kidney injury) Current Visit: Yes Status: Acute (4) COPD (chronic obstructive pulmonary disease) Current Visit: No Status: Acute Qualifiers: COPD type: COPD with acute exacerbation Qualified Code(s): J44.1 - Chronic obstructive pulmonary disease with (acute) exacerbation (5) Hypoglycemia Current Visit: Yes Status: Acute (6) DVT prophylaxis Current Visit: No Status: Acute - Constitutional Vitals: Temp Pulse Resp BP Pulse Ox 97.7 F 87 16 102/61 98 12/20/17 11:36 12/20/17 11:36 12/20/17 11:36 12/20/17 11:36 12/20/17 11:36 Internal Medicine: Result - Labs CBC & Chem 7: 12/20/17 05:43 12/20/17 05:43 Labs: Short CBC 12/20/17 Range/Units 05:43 WBC 7.7 (4.3-11.1) K/mcL Hgb 8.2 L (11.5-15.4) g/dL Hct 29.1 L (35.3-44.9) % Plt Count 108 L (140-400) K/mcL Neutrophils # 5.7 (1.6-8.9) K/mcL BMP 12/20/17 05:43 Sodium 145 Potassium 4.7 Chloride 103 Carbon Dioxide 39 H BUN 48 H Creatinine 1.45 H Glucose 46 L Calcium 9.0 - Attending Attestation I have independently seen and examined this patient on 12/20 She is admitted and being managed for MARIFER , Dizziness, hypoglycemia, suspected pneumonia by imaging, she has chronic hypercapnea and is not compliant ith BIPAP at home she is not on any hypoglycemic agents to her knowledge, she just believes she has had a poor appetite Physical exam reveals an unremarkable finding except for morbid obeisty Lab and imaging reviewed: chornic anemia, chronic metabolic al alkalosis, improving renal function, troponin negative, chest x-ray noted. EKG noted. D5 water infusion for now, continue to check fingersticks every 4-6 hours, encourage oral intake. Continue other current management. Rest of details as in the resident physicians documentation.
[2017-12-20 16:09] LABS: Bilirubin,Urine Negative (Negative); Blood,Urine Negative (Negative); Clarity,Urine Clear (Clear); Color,Urine Yellow (Yellow); Glucose,Urine (UA) Normal (Normal); Ketones,Urine Negative (Negative); Leukocyte Esterase,Urine Negative (Negative); Nitrite,Urine Negative (Negative); PH,Urine 5.5 pH Units (5.0-8.0); Protein,Urine Negative (Neg-Trace); Specific Gravity,Urine 1.018 (1.010-1.025); Urobilinogen,Urine Normal (Normal)
[2017-12-20] MEDS: Latanoprost 2.5 ML BOTTLE BOTH EYES SCH (20:51)
[2017-12-20] MEDS: Gabapentin 300 MG CAPSULE PO SCH (20:51)
[2017-12-20] MEDS ORDERED: traMADol 50 MG TABLET PO PRN (22:06)
[2017-12-20] MEDS: Acetaminophen 325 MG TABLET PO PRN (23:42)
[2017-12-21] MEDS: *HR* Heparin 5,000 UNIT/ML VIAL SQ SCH ×2 (05:20→18:09)
[2017-12-21] MEDS: D5% in 0.9% NACL 1,000 ML IVC SCH (05:20)
[2017-12-21 07:07] LABS: Basophils % 0.2 %; Eosinophils % 0.1 %; Hematocrit 29.5 % (35.3-44.9); Hemoglobin 8.1 g/dL (11.5-15.4); Immature Granulocytes % 0.3 % (0-4); Lymphocytes # 0.9 K/mcL (0.6-4.6); Lymphocytes % 10.8 %; Mean Corpuscular HGB Conc 27.5 g/dL (31.6-35.5); Mean Corpuscular Hemoglobin 29.1 pg (28.0-33.3); Mean Corpuscular Volume 106.1 fL (83.0-100.0); Mean Platelet Volume 12.9 fL (9.4-12.4); Monocytes % 11.5 %; Neutrophils # 6.7 K/mcL (1.6-8.9); Platelet Count 120 K/mcL (140-400); Red Blood Count 2.78 M/mcL (3.82-4.97); Red Cell Distribution Width 13.1 % (11.5-14.5); Segmented Neutrophils % 77.1 %
[2017-12-21 07:35] LABS: Calcium 9.1 mg/dL (8.6-10.3); Potassium 5.4 mEq/L (3.5-5.1)
[2017-12-21] MEDS: Valsartan 80 MG TABLET PO SCH (08:13)
[2017-12-21] MEDS: Artificial Tears SOLN 15 ML BOTTLE OP SCH ×4 (08:14→20:31)
[2017-12-21 08:44] LABS: ABG Base Excess 11 mEq/L (-2 to 3); ABG HCO3 41 mEq/L (21-27); ABG Oxygen Saturation 83 % (95-98); ABG PCO2 98 mmHg (35-45); ABG PH 7.23 pH Units (7.32-7.45); ABG PO2 60 mmHg (85-104); ABG TCO2 44 mEq/L (20-26); Blood Gas Respiration Rate 12
[2017-12-21 08:46] LABS: Platelet Estimate Decreased (Normal)
[2017-12-21] MEDS ORDERED: Furosemide 40 MG/4 ML VIAL ONE (08:46)
[2017-12-21] MEDS ORDERED: Furosemide 40 MG/4 ML VIAL IVP ONE (08:47)
--- NOTE | 2017-12-21 09:04 | Event Note ---
Date of Encounter: 12/21/17 Time of Encounter: 08:30 I was notified by nurse at around 8:20 am regarding patient's tremor while trying to use bedside commode. Patient reports feeling dizziness and appears to be confused while sitting up on the bed so patient was instructed to lay down on the bed given concern of potential fall risk. Patient's face was then noted to be mildly cyanotic so supplemental oxygen was initiated and finger pulse oximetry was placed. The pulse oximetry read at 60s% with occasional drop to 50s so rapid response was called. Patient was started on BiPAP immediately and STAT ABG was obtained which showed pH 7.23, pCO2 98, pO2 60, HCO3 44. Auscultation of lung revealed diffuse crackles especially bibasilar. Patient appeared to more alert compared to earlier as she can answer questions appropriately. Case was discussed with attending Dr. Story who arrived the scene immediately after the rapid response was called. Given the physical exam finding and known patient's PMH of diastolic CHF, patient likely has pulmonary edema contributing to her current respiratory failure. All the IV fluid was discontinued and 40 mg of IV Lasix was given. Portable CXR was obtained and appeared to be consistent with pulmonary edema per my interpretation. Patient's respiratory status will require closer monitoring so transfer to another unit with higher level of care was ordered. Per nurse, patient will be transferred to ICU6.
--- NOTE | 2017-12-21 09:04 | Internal Med Progress Note ---
<Jose Alfredo Atkinson - Last Filed: 12/21/17 14:48> Date of Encounter: 12/21/17 Time of Encounter: 08:30 - Assessment and plan (1) Acute on chronic respiratory failure with hypoxia and hypercapnia Current Visit: No Status: Acute Assessment and plan: - Rapid response was initiated this morning for mild cyanosis of face and low pulse oximetry readings (50s-60s) - ABG pH 7.23, pCO2 98, pO2 60, HCO3 41 this morning. - Likely secondary to pulmonary edema in the setting of diastolic CHF, COPD and possible pneumonia. - Patient was started on BiPAP since this morning. - Hypercapnia persists after 4 hours on BiPAP as repeat ABG this afternoon showed pH 7.25, pCO2 100, pO2 107, HCO3 44. - Pulmonology has been consulted and appreciate further evaluation and management. (2) Diastolic CHF Current Visit: Yes Status: Acute Assessment and plan: - Echocardiogram on 07/18/17 showed LVEF 65% with moderate LV diastolic dysfunction. - Lasix was initially held on admission given patient's MARIFER. - Diffuse crackles on lung auscultation today and CXR today is consistent with pulmonary edema picture. - Patient received one dose of Lasix 40 mg IV during rapid response this morning. - Continue BiPAP and aggressive diuresis. - Strict I/O and daily weight. Given the need of strict monitoring of urine output and patient's significant risk of fall, patient will benefit from temporary urinary catheter. Qualifiers: Heart failure chronicity: acute on chronic Qualified Code(s): I50.33 - Acute on chronic diastolic (congestive) heart failure (3) Pneumonia Current Visit: Yes Status: Resolved Assessment and plan: - Chest x-ray on admission showed patchy left air space concerning of pneumonia. - Was on levofloxacin on hospital day #1 but the discontinued as patient's clinical picture did not fit pneumonia (normal WBC, no fever or significant sputum production). - Given current respiratory failure and concern of aspiration pneumonia, will start IV Zosyn for empiric coverage of pneumonia. Qualifiers: Pneumonia type: due to unspecified organism Laterality: left Lung location: unspecified part of lung Qualified Code(s): J18.9 - Pneumonia, unspecified organism (4) MARIFER (acute kidney injury) Current Visit: Yes Status: Acute Assessment and plan: - SCr 2.02 / eGFR 25 on admission. - Improves with IV fluid as SCr 1.20 / eGFR 46 today. - All IV fluid has been held at this time given current respiratory failure secondary to pulmonary edema. (5) COPD (chronic obstructive pulmonary disease) Current Visit: No Status: Acute Assessment and plan: - Continue bronchodilator and supplemental oxygen. Qualifiers: COPD type: COPD with acute exacerbation Qualified Code(s): J44.1 - Chronic obstructive pulmonary disease with (acute) exacerbation (6) Dizziness Current Visit: Yes Status: Acute Assessment and plan: - Patient presented to ED with complaint of dizziness. - Likely secondary to dehydration versus vasovagal. (7) DVT prophylaxis Current Visit: No Status: Acute Assessment and plan: Heparin 5000 U SQ Q12hr. - Subjective Interval history: Patient was seen and examined this morning. Patient reports feeling dizziness while sitting up on the bed and developed mild cyanosis of face while laying down which leaded to rapid response (please see my event about the rapid response for further detail). - Constitutional Vitals: Temp Pulse Resp BP Pulse Ox 98.6 F 82 20 134/73 94 12/21/17 07:11 12/21/17 07:11 12/21/17 07:11 12/21/17 07:11 12/21/17 07:11 General appearance: Present: A&O X 3, morbidly obese, answers questions appropriately - Head Head exam: Present: normal inspection - Eye Eye exam: Present: EOMI - Neck Neck exam general surgery: Present: normal inspection, trachea midline - Respiratory Respiratory exam: Present: rales (Difficuse crackles, especially bibasilar.) - Cardiovascular Cardiovascular exam: Present: RRR, +S1, +S2 - GI/Abdominal GI/Abdominal exam: Present: normal bowel sounds, soft. Absent: tenderness - Extremities Exam Extremities exam: Present: pedal edema. Absent: cyanotic - Neurological Exam Neurological exam: Present: alert. Absent: facial droop, speech deficit - Skin Skin exam: Present: dry, warm Internal Medicine: Result - Labs CBC & Chem 7: 12/21/17 08:42 12/21/17 08:42 Labs: Short CBC 12/21/17 Range/Units 06:05 WBC 8.7 (4.3-11.1) K/mcL Hgb 8.1 L (11.5-15.4) g/dL Hct 29.5 L (35.3-44.9) % Plt Count 120 L (140-400) K/mcL Neutrophils # 6.7 (1.6-8.9) K/mcL BMP 12/21/17 06:05 Sodium 146 H Potassium 5.4 H Chloride 103 Carbon Dioxide 36 H BUN 35 H Creatinine 1.24 H Glucose 143 H Calcium 9.1 Urine 12/20/17 Range/Units 15:50 Urine Color Yellow (Yellow) Urine Clarity Clear (Clear) Urine pH 5.5 (5.0-8.0) pH Units Ur Specific [place] 1.018 (1.010-1.025) Urine Protein Negative (Neg-Trace) mg/dL Urine Glucose (UA) Normal (Normal) mg/dL - ABG Interpretation ABG results: ABG ABG pH 7.23 pH Units (7.32-7.45) L 12/21/17 08:37 ABG pCO2 98 mmHg (35-45) H* 12/21/17 08:37 ABG pO2 60 mmHg (85-104) L 12/21/17 08:37 ABG O2 Saturation 83 % (95-98) L 12/21/17 08:37 Consult Discharge Plan - Plan Referrals: Aayush Chase MD [Primary Care Provider] - <Olvin Randhawa - Last Filed: 12/21/17 15:35> Date of Encounter: 12/21/17 - Assessment and plan (1) Acute on chronic respiratory failure with hypoxia and hypercapnia Current Visit: No Status: Acute (2) Diastolic CHF Current Visit: Yes Status: Acute Qualifiers: Heart failure chronicity: acute on chronic Qualified Code(s): I50.33 - Acute on chronic diastolic (congestive) heart failure (3) Pneumonia Current Visit: Yes Status: Resolved Qualifiers: Pneumonia type: due to unspecified organism Laterality: left Lung location: unspecified part of lung Qualified Code(s): J18.9 - Pneumonia, unspecified organism (4) MARIFER (acute kidney injury) Current Visit: Yes Status: Acute (5) COPD (chronic obstructive pulmonary disease) Current Visit: No Status: Acute Qualifiers: COPD type: COPD with acute exacerbation Qualified Code(s): J44.1 - Chronic obstructive pulmonary disease with (acute) exacerbation (6) Dizziness Current Visit: Yes Status: Acute (7) DVT prophylaxis Current Visit: No Status: Acute - Constitutional Vitals: Temp Pulse Resp BP Pulse Ox 98.6 F 84 20 121/64 80 12/21/17 07:11 12/21/17 14:38 12/21/17 13:24 12/21/17 13:24 12/21/17 13:24 Internal Medicine: Result - Labs CBC & Chem 7: 12/21/17 08:42 12/21/17 08:42 - ABG Interpretation ABG results: ABG ABG pH 7.25 pH Units (7.32-7.45) L 12/21/17 13:16 ABG pCO2 100 mmHg (35-45) H* 12/21/17 13:16 ABG pO2 107 mmHg (85-104) H D 12/21/17 13:16 ABG O2 Saturation 97 % (95-98) 12/21/17 13:16 - Attending Attestation I examined this patient and my medical decision-making was reviewed with the Resident Physician. I agree with the documented findings, disposition and treatment plan as described except to the extent set forth below. Seen and examined at bedside Patient with chronic hypercapnic resp failure, admitted and being managed for MARIFER , Dizziness, hypoglycemia, suspected pneumonia by imaging, she has chronic hypercapnea and is not compliant ith BIPAP at home This morning, she developed weakness and tremulousness on ambulation , STAT CXR and ABG shows pulm edema/LLL pneumonia, ressp acidosis and hypercapnea with PH 7.2, PCO2 90, she was awake, alert and oriented. She was placed on BiPAp IPA/ EPAP 16/6, RR 12, FiO2 60%, she was able to tolerate this settings, she was transferred to the intensive care unit for further monitoring Repeat ABG showed no improvement, Pulmonology has been consulted for recommendations and help with managing BiPAP settings, patient remains awake and hemodynamically stable Hypoglycemia has resolved, MARIFER is improving, anemia is stable Rest of details as in the resident physician's documentation
[2017-12-21 09:21] LABS: Hematocrit 29.9 % (35.3-44.9); Hemoglobin 8.1 g/dL (11.5-15.4); Mean Corpuscular HGB Conc 27.1 g/dL (31.6-35.5); Mean Corpuscular Hemoglobin 28.5 pg (28.0-33.3); Mean Corpuscular Volume 105.3 fL (83.0-100.0); Platelet Count 121 K/mcL (140-400); Red Blood Count 2.84 M/mcL (3.82-4.97); Red Cell Distribution Width 13.1 % (11.5-14.5)
[2017-12-21 11:02] LABS: Calcium 9.1 mg/dL (8.6-10.3); Potassium 5.2 mEq/L (3.5-5.1)
[2017-12-21 13:24] LABS: ABG Base Excess 14 mEq/L (-2 to 3); ABG HCO3 44 mEq/L (21-27); ABG Oxygen Saturation 97 % (95-98); ABG PCO2 100 mmHg (35-45); ABG PH 7.25 pH Units (7.32-7.45); ABG PO2 107 mmHg (85-104); ABG TCO2 47 mEq/L (20-26); Blood Gas Modality ST; Blood Gas PEEP 8 cm H2O
[2017-12-21] MEDS: Acetaminophen 325 MG TABLET PO PRN ×2 (14:02→23:49)
--- NOTE | 2017-12-21 14:43 | Pulmonology Consult Note ---
<Alfonso Mcmahan M - Last Filed: 12/21/17 15:46> Date of Encounter: 12/21/17 Medications and Allergies Esomeprazole Magnesium [Nexium] 40 mg PO DAILY 04/06/16 [History] Furosemide [Lasix] 40 mg PO BID 04/06/16 [History] Glimepiride [Amaryl] 4 mg PO QAM 04/06/16 [History] Latanoprost [Xalatan] 1 drop BOTH EYES HS 04/06/16 [History] Simvastatin [Zocor] 40 mg PO HS 04/06/16 [History] SitaGLIPtin [Januvia] 100 mg PO DAILY 04/06/16 [History] Albuterol Sulfate [Albuterol Inhaler] 2 puff IH Q4H PRN 04/14/17 [History] Citalopram Hydrobromide [Citalopram HBr] 40 mg PO HS 04/14/17 [History] Docusate [Colace] 100 mg PO DAILY 04/14/17 [History] Gabapentin [Neurontin] 600 mg PO HS 04/14/17 [History] Valsartan [Diovan] 80 mg PO DAILY 04/14/17 [History] Spironolactone [Aldactone] 25 mg PO DAILY 07/24/17 [History] Brimonidine 0.2% [Alphagan] 1 drop BOTH EYES AD 12/19/17 [History] Propylene Glycol/Peg 400 [Systane Ultra 0.4-0.3% Eye Drp] 1 drop OP QID [History] clonazePAM [Klonopin] 0.5 mg PO BID PRN 12/19/17 [History] 3 Allergy/AdvReac Type Severity Reaction Status Date / Time hydrocodone [From Vicodin] AdvReac Nausea Verified 12/19/17 12:48 Hydromorphone [From Dilaudid] AdvReac Nausea Verified 12/19/17 12:48 All Systems: The remainder of the systems were reviewed and are negative Physical Examination Vital Signs: Vital Signs, Last 4 Hours Pulse Resp BP Pulse Ox 12/21/17 14:38 84 12/21/17 13:24 79 20 121/64 80 Results - Laboratory Findings CBC and BMP: 12/21/17 08:42 12/21/17 08:42 ABG ABG pH 7.25 pH Units (7.32-7.45) L 12/21/17 13:16 ABG pCO2 100 mmHg (35-45) H* 12/21/17 13:16 ABG pO2 107 mmHg (85-104) H D 12/21/17 13:16 ABG O2 Saturation 97 % (95-98) 12/21/17 13:16 Abnormal lab findings: Abnormal lab results RBC 2.84 M/mcL (3.82-4.97) L 12/21/17 08:42 Hgb 8.1 g/dL (11.5-15.4) L 12/21/17 08:42 Hct 29.9 % (35.3-44.9) L 12/21/17 08:42 MCV 105.3 fL (83.0-100.0) H 12/21/17 08:42 MCHC 27.1 g/dL (31.6-35.5) L 12/21/17 08:42 Plt Count 121 K/mcL (140-400) L 12/21/17 08:42 MPV 13.0 fL (9.4-12.4) H 12/21/17 08:42 Platelet Estimate Decreased (Normal) L 12/21/17 06:05 Hypochromasia Present (Not Present) A 12/20/17 05:43 ABG pH 7.25 pH Units (7.32-7.45) L 12/21/17 13:16 ABG pCO2 100 mmHg (35-45) H* 12/21/17 13:16 ABG pO2 107 mmHg (85-104) H D 12/21/17 13:16 ABG HCO3 44 mEq/L (21-27) H 12/21/17 13:16 ABG Total CO2 47 mEq/L (20-26) H 12/21/17 13:16 ABG Base Excess 14 mEq/L (-2 to 3) H 12/21/17 13:16 VBG pH 7.25 pH Units (7.32-7.42) L 12/19/17 12:24 VBG pCO2 92 mmHg (41-51) H* 12/19/17 12:24 VBG pO2 88 mmHg (25-50) H 12/19/17 12:24 VBG HCO3 40 mEq/L (21-27) H 12/19/17 12:24 Potassium 5.2 mEq/L (3.5-5.1) H 12/21/17 08:42 Carbon Dioxide 34 mEq/L (23-29) H 12/21/17 08:42 BUN 33 mg/dL (8-23) H 12/21/17 08:42 Est GFR ( Amer) 55 (> 60) L 12/21/17 08:42 Est GFR (Non-Af Amer) 46 (> 60) L 12/21/17 08:42 BUN/Creatinine Ratio 28 (6-26) H 12/21/17 08:42 Glucose 203 mg/dL (70-105) H 12/21/17 08:42 POC Glucose 91 (58-89) H 12/20/17 19:33 Calculated Osmolality 307 (280-300) H 12/21/17 08:42 AST 10 Units/L (13-39) L 12/19/17 10:30 Alkaline Phosphatase 133 Units/L (34-104) H 12/19/17 10:30 B-Natriuretic Peptide 289 pg/mL (Less than 100) H 12/19/17 10:30 Consult Discharge Plan - Plan Referrals: Aayush Chase MD [Primary Care Provider] - - Attending Attestation I examined this patient and my medical decision-making was reviewed with the Resident Physician. I agree with the documented findings, disposition and treatment plan as described except to the extent set forth below. Patient seen and examined. Labs, radiology, chart personally reviewed. 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 Patient has significant decreased and this is most likely related to her significant diaphragmatic hernia. I have discussed with the family and the patient that this needed to be corrected and they told me who [facility] will not do surgery due to her high risk. I have advised him when she is recovered from this illness she needs second opinion in a different place such as [facility]. Patient chronically has high PCO2 and as long as she is keeping her mentation and hemodynamically stable, will follow-up and monitor. Systemic steroid and change antibiotic to Levaquin with bronchodilators. 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 Changed tidal volume on noninvasive ventilation and to have a follow-up ABG. There is also component of obesity hypoventilation syndrome with also history of obstructive sleep apnea. Will need CT chest for better characterization of her diaphragmatic hernia. Cardiovascular: stable GI: Nutrition per dietary and GI prophylaxis per routine Heme: DVT prophylaxis per routine ID: Continue antibiotics and plan to de-escalation Renal; urine out put and renal funtion reviewed Endorcine: blood glucose is monitored Lines: all lines checked and no evidence of infections Skin: skin care to prevent pressure ulcers per nursing routine care Continue monitoring in ICU and thank you very much for consultation. <Drake Jean - Last Filed: 12/21/17 16:34> Date of Encounter: 12/21/17 Time of Encounter: 14:29 Assessment and Plan (1) Acute on chronic respiratory failure with hypoxia and hypercapnia Current Visit: Yes Status: Acute - Acute on chronic respiratory failure secondary to likely COPD exacerbation - Pt reports increased sputum with thick green sputum. Sick contact of - Wheezing on auscultation with Acute and Chronic respiratory acidosis on ABG - CXR obtained today revealed large diaphragmatic hernia which is likely contributing to hypoxia/hypercapnia. Possible left sided consolidation Plan - Will start methylprednisone with burst dose tonight, start schedule 40 mg BID tomorrow - Start duonebs in addition to albuterol IH - Discontinue Zosyn, restart levaquin, day #2 - BiPAP support as necessary - Will obtain respiratory panel (2) COPD exacerbation Current Visit: Yes Status: Acute As above (3) Diaphragmatic hernia Current Visit: Yes Status: Acute - Chronic right sided diaphragmatic hernia which has been evaluated by [facility] and deemed too dangerous for surgical intervention - Likely contributing to hypoxia and hypercapnia as it is acting as a space and limiting full expansion. - Will encourage increased tidal volumes on BiPAP to facilitate maximum expansion. Qualifiers: Obstruction and gangrene presence: without obstruction or gangrene Qualified Code(s): K44.9 - Diaphragmatic hernia without obstruction or gangrene (4) Morbid obesity Current Visit: Yes Status: Chronic Would encourage outpatient weight loss as this is likely contributing to OHS/ AIMEE (5) Dizziness Current Visit: Yes Status: Acute per primary team (6) MARIFER (acute kidney injury) Current Visit: Yes Status: Acute Per primary team (7) DVT prophylaxis Current Visit: Yes Status: Acute Per primary team History of Present Illness Consult date: 12/21/17 Requesting physician: Olvin Randhawa Reason for consult: other (hypercarbia) Chief complaint: dizziness History of present illness: 62-year-old female with past medical history of COPD, CHF presented to hospital with complaint of dizziness, lightheadedness. This is suspected to be secondary to dehydration versus vasovagal. Patient also states that during the past 2 days she has begun to experience shortness of breath increased from her baseline. She does use 4 L of oxygen via nasal cannula at home as well as intermittent BiPAP. She states her shortness of breath is worsened with lying flat as well as exertion. She does have a sick contact of her at home who was diagnosed with bronchitis. She also admits to a change in sputum with thick green sputum production. She also has chronic bilateral lower extremity swelling. Denies any symptoms of fevers, chills, nausea, vomiting, abdominal pain. Chest x-ray on admission revealed a elevated right hemidiaphragm which is thought to be secondary to a large diaphragmatic hernia which was further evaluated with CT scan of the chest. During course hospital stay, patient did require continuous BiPAP due to hypoxia as well as hypercapnia. Arterial blood gas did reveal respiratory acidosis with CO2 of 100. Pulmonology was consulted at this time due to not improving hypercapnic respiratory failure which did not improve with BiPAP. During course of interview, patient did express desire to remain a full code and was okay with short-term intubation. She does follow with assistant import manager, Dr. Camarillo, at [facility] and had a CT chest and PFTs on . Past Med Surg Social Fam HX - Past Medical History Medical history: CHF, COPD, diabetes, fibromyalgia, hyperlipidemia, hypertension Psychiatric history: anxiety, depression - Past Surgical History Surgical History: other - Social History Smoking Status: Never smoker Smokeless Tobacco Status: No Alcohol use: none Drug use: none - Family History Father Family Member Ethnicity: Non- Living Status: Hx Family Cardiac Disorders: Yes ([place], HTN) Brother Family Member Ethnicity: Non- Living Status: Still Living Hx Family GI Disorders: Yes (Crohn's disease) Sister Family Member Ethnicity: Non- Living Status: Hx Family Cardiac Disorders: Yes ([place], HTN) Mother Adopted: No Family Member Ethnicity: Non- Living Status: Hx Family Cardiac Disorders: Yes (HTN, CHF) Hx Family Respiratory Disorders: Yes (COPD) Hx Family Cancer: Yes (skin) Hx Family GI Disorders: No Hx Family Endocrine Disorder: Yes (DM) Hx Family Neuromuscular Disorders: No Hx Family Neurologic Disorders: Yes (CVA with rt sided weakness) Hx Family HEENT Disorders: Yes ([place]) Hx Family Autoimmune Disorders: No All Systems: The remainder of the systems were reviewed and are negative Review of Systems: - Constitutional: Denies fevers, chills, weight loss, generalized fatigue - Head/Neck: Denies HOUGH, upper respiratory symptoms - EENT: Denies rhinorrhea, congestion, sore throat. - CVS: Admits to orthopnea, bilateral lower extremity edema, dyspnea on exertion Denies chest pain, palpitations, PND, - Pulm: Admits to shortness of breath, cough, thick green sputum production. Denies hematemesis, wheezing - GI: Denies abdominal pain, anorexia, nausea, vomiting, diarrhea - Neuro: Denies HOUGH, paresthesias, focal deficits, ataxia, numbness, tingling. Physical Examination Vital Signs: Vital Signs, Last 4 Hours Pulse Resp BP Pulse Ox 12/21/17 13:24 79 20 121/64 80 Gen.: Vitals noted. No acute distress. AAOx4. Resting comfortably in bed. Morbidly obese HEENT: PERRL/EOMI, Normocephalic, atraumatic Neck: Supple. No adenopathy. Cardiac: RRR, no murmur, +S1/S2 Pulmonary: Mild wheezing present most prominent on the left. Diminished breath sounds on right lower lobe, Otherwise CTA bilaterally, no wheezes, rales or rhonchi, equal chest expansion Abdomen: soft, nontender, BS noted, no guarding Extremities: Bilateral lower extremity edema, nonpitting. Patient is tender to palpation over bilateral extremity. no cyanosis or clubbing Neuro: A&Ox3, moves all extremities, no focal deficits Psych: Appropriate mood and behavior Results - Laboratory Findings CBC and BMP: 12/21/17 08:42 12/21/17 08:42 ABG ABG pH 7.25 pH Units (7.32-7.45) L 12/21/17 13:16 ABG pCO2 100 mmHg (35-45) H* 12/21/17 13:16 ABG pO2 107 mmHg (85-104) H D 12/21/17 13:16 ABG O2 Saturation 97 % (95-98) 12/21/17 13:16 Abnormal lab findings: Abnormal lab results RBC 2.84 M/mcL (3.82-4.97) L 12/21/17 08:42 Hgb 8.1 g/dL (11.5-15.4) L 12/21/17 08:42 Hct 29.9 % (35.3-44.9) L 12/21/17 08:42 MCV 105.3 fL (83.0-100.0) H 12/21/17 08:42 MCHC 27.1 g/dL (31.6-35.5) L 12/21/17 08:42 Plt Count 121 K/mcL (140-400) L 12/21/17 08:42 MPV 13.0 fL (9.4-12.4) H 12/21/17 08:42 Platelet Estimate Decreased (Normal) L 12/21/17 06:05 Hypochromasia Present (Not Present) A 12/20/17 05:43 ABG pH 7.25 pH Units (7.32-7.45) L 12/21/17 13:16 ABG pCO2 100 mmHg (35-45) H* 12/21/17 13:16 ABG pO2 107 mmHg (85-104) H D 12/21/17 13:16 ABG HCO3 44 mEq/L (21-27) H 12/21/17 13:16 ABG Total CO2 47 mEq/L (20-26) H 12/21/17 13:16 ABG Base Excess 14 mEq/L (-2 to 3) H 12/21/17 13:16 VBG pH 7.25 pH Units (7.32-7.42) L 12/19/17 12:24 VBG pCO2 92 mmHg (41-51) H* 12/19/17 12:24 VBG pO2 88 mmHg (25-50) H 12/19/17 12:24 VBG HCO3 40 mEq/L (21-27) H 12/19/17 12:24 Potassium 5.2 mEq/L (3.5-5.1) H 12/21/17 08:42 Carbon Dioxide 34 mEq/L (23-29) H 12/21/17 08:42 BUN 33 mg/dL (8-23) H 12/21/17 08:42 Est GFR ( Amer) 55 (> 60) L 12/21/17 08:42 Est GFR (Non-Af Amer) 46 (> 60) L 12/21/17 08:42 BUN/Creatinine Ratio 28 (6-26) H 12/21/17 08:42 Glucose 203 mg/dL (70-105) H 12/21/17 08:42 POC Glucose 91 (58-89) H 12/20/17 19:33 Calculated Osmolality 307 (280-300) H 12/21/17 08:42 AST 10 Units/L (13-39) L 12/19/17 10:30 Alkaline Phosphatase 133 Units/L (34-104) H 12/19/17 10:30 B-Natriuretic Peptide 289 pg/mL (Less than 100) H 12/19/17 10:30
[2017-12-21] MEDS ORDERED: methylPREDNISolone 125 MG/2 ML VIAL IVP ONE (15:03)
[2017-12-21] MEDS: Ipratropium/Albuterol Neb 3 ML IH SCH ×3 (15:21→23:07)
[2017-12-21] MEDS ORDERED: Piperacillin/Tazobactam 3.375 GM in 0.9 % Sodium Chloride Mini Bag 100 ML IVPB SCH (16:00)
[2017-12-21 16:12] LABS: ABG Base Excess 17 mEq/L (-2 to 3); ABG HCO3 44 mEq/L (21-27); ABG Oxygen Saturation 99 % (95-98); ABG PCO2 67 mmHg (35-45); ABG PH 7.43 pH Units (7.32-7.45); ABG PO2 159 mmHg (85-104); ABG TCO2 46 mEq/L (20-26); Blood Gas Modality avaps; Blood Gas PEEP 6 cm H2O; Blood Gas VT 450 cc
--- NOTE | 2017-12-21 16:49 | Electrocardiograph Report ---
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
[2017-12-21] MEDS: Gabapentin 300 MG CAPSULE PO SCH (20:32)
[2017-12-21] MEDS: Latanoprost 2.5 ML BOTTLE BOTH EYES SCH (20:32)
[2017-12-21] MEDS ORDERED: Furosemide 40 MG/4 ML VIAL IVP SCH (21:00)
[2017-12-21 22:39] LABS: Adenovirus Not Detected (Not Detect); Bordetella Pertussis Not Detected (Not Detect); Chlamydophila pneumoniae Not Detected (Not Detect); Coronavirus 229E Not Detected (Not Detect); Coronavirus HKU1 Not Detected (Not Detect); Coronavirus NL63 Not Detected (Not Detect); Coronavirus OC43 Not Detected (Not Detect); Human Metapneumovirus Not Detected (Not Detect); Human Rhinovirus/Enterovirus Not Detected (Not Detect); Influenza A Subtype 2009 H1 Not Detected (Not Detect); Influenza A Untypeable Not Detected (Not Detect); Influenza B Not Detected (Not Detect); Mycoplasma pneumoniae Not Detected (Not Detect); Parainfluenza Virus 1 Not Detected (Not Detect); Parainfluenza Virus 2 Not Detected (Not Detect); Parainfluenza Virus 3 Not Detected (Not Detect); Parainfluenza Virus 4 Not Detected (Not Detect); Respiratory Syncytial Virus Not Detected (Not Detect)
[2017-12-22 01:58] LABS: Basophils % 0.2 %; Hemoglobin 7.6 g/dL (11.5-15.4); Mean Corpuscular Hemoglobin 28.9 pg (28.0-33.3); Monocytes % 0.8 %; Red Blood Count 2.63 M/mcL (3.82-4.97); Red Cell Distribution Width 12.8 % (11.5-14.5)
[2017-12-22 02:00] LABS: Hematocrit 26.8 % (35.3-44.9); Immature Granulocytes % 0.5 % (0-4); Lymphocytes # 0.4 K/mcL (0.6-4.6); Lymphocytes % 6.6 %; Mean Corpuscular HGB Conc 28.4 g/dL (31.6-35.5); Mean Corpuscular Volume 101.9 fL (83.0-100.0); Monocytes # 0.1 K/mcL (0.0-1.3); Neutrophils # 5.5 K/mcL (1.6-8.9); Platelet Count 110 K/mcL (140-400); Segmented Neutrophils % 91.9 %
[2017-12-22 02:15] LABS: BUN/Creatinine Ratio 28 (6-26); Blood Urea Nitrogen 31 mg/dL (8-23); Calcium 9.2 mg/dL (8.6-10.3); Carbon Dioxide 35 mEq/L (23-29); Chloride 100 mEq/L (98-107); Glucose 246 mg/dL (70-105); Osmolality,Calculated 305 (280-300); Potassium 5.4 mEq/L (3.5-5.1); Sodium 140 mEq/L (136-145); eGFR For African Americans > 60 (> 60); eGFR For Non-African Americans 50 (> 60)
[2017-12-22 02:32] LABS: Hypochromasia Present (Not Present); Polychromasia 1+ (Not Present)
[2017-12-22 02:33] LABS: Platelet Estimate Slight Decrease (Normal); Stomatocytes 1+ (Not Present)
[2017-12-22] MEDS: Ipratropium/Albuterol Neb 3 ML IH SCH ×5 (03:40→19:57)
[2017-12-22] MEDS: MethylPREDNISolone 40 MG/ML VIAL IVP SCH ×2 (03:44→16:00)
[2017-12-22] MEDS: *HR* Heparin 5,000 UNIT/ML VIAL SQ SCH ×2 (05:59→18:03)
[2017-12-22] MEDS ORDERED: Dextrose Gel 15 GM/37.5 ML TUBE PO PRN ×2 (06:58)
[2017-12-22] MEDS ORDERED: *HR* Dextrose 50 % in Water (Syg) 50 ML SYRINGE IVP PRN (06:58)
[2017-12-22] MEDS ORDERED: D5% in Water 1,000 ML IVC PRN (06:58)
[2017-12-22] MEDS: Furosemide 40 MG/4 ML VIAL IVP SCH (08:13)
[2017-12-22] MEDS: Artificial Tears SOLN 15 ML BOTTLE OP SCH ×4 (08:14→20:13)
[2017-12-22] MEDS: Valsartan 80 MG TABLET PO SCH (08:14)
[2017-12-22] MEDS: Insulin LISPRO 300 UNITS/3 ML VIAL SQ SCH ×3 (08:20→16:06)
[2017-12-22] MEDS: Acetaminophen 325 MG TABLET PO PRN ×3 (08:25→20:11)
--- NOTE | 2017-12-22 08:48 | Pulmonology Progress Note ---
<MarjAlfonso M - Last Filed: 12/22/17 09:50> Date of Encounter: 12/22/17 Objective PUL Vital signs: Last Vital Signs Temp 98.4 F 12/22/17 08:58 Pulse 67 12/22/17 07:00 Resp 10 12/22/17 07:31 BP 118/78 12/22/17 07:31 Pulse Ox 95 12/22/17 07:31 Results - Laboratory Findings CBC and BMP: 12/22/17 01:33 12/22/17 01:33 ABG ABG pH 7.43 pH Units (7.32-7.45) D 12/21/17 15:54 ABG pCO2 67 mmHg (35-45) H D 12/21/17 15:54 ABG pO2 159 mmHg (85-104) H D 12/21/17 15:54 ABG O2 Saturation 99 % (95-98) H 12/21/17 15:54 Abnormal lab findings: Abnormal lab results RBC 2.63 M/mcL (3.82-4.97) L 12/22/17 01:33 Hgb 7.6 g/dL (11.5-15.4) L 12/22/17 01:33 Hct 26.8 % (35.3-44.9) L 12/22/17 01:33 MCV 101.9 fL (83.0-100.0) H 12/22/17 01:33 MCHC 28.4 g/dL (31.6-35.5) L 12/22/17 01:33 Plt Count 110 K/mcL (140-400) L 12/22/17 01:33 MPV 13.0 fL (9.4-12.4) H 12/22/17 01:33 Lymphocytes # 0.4 K/mcL (0.6-4.6) L 12/22/17 01:33 Platelet Estimate Slight Decrease (Normal) L 12/22/17 01:33 Polychromasia 1+ (Not Present) A 12/22/17 01:33 Hypochromasia Present (Not Present) A 12/22/17 01:33 Stomatocytes 1+ (Not Present) A 12/22/17 01:33 ABG pCO2 67 mmHg (35-45) H D 12/21/17 15:54 ABG pO2 159 mmHg (85-104) H D 12/21/17 15:54 ABG HCO3 44 mEq/L (21-27) H 12/21/17 15:54 ABG Total CO2 46 mEq/L (20-26) H 12/21/17 15:54 ABG O2 Saturation 99 % (95-98) H 12/21/17 15:54 ABG Base Excess 17 mEq/L (-2 to 3) H 12/21/17 15:54 VBG pH 7.25 pH Units (7.32-7.42) L 12/19/17 12:24 VBG pCO2 92 mmHg (41-51) H* 12/19/17 12:24 VBG pO2 88 mmHg (25-50) H 12/19/17 12:24 VBG HCO3 40 mEq/L (21-27) H 12/19/17 12:24 Potassium 5.4 mEq/L (3.5-5.1) H 12/22/17 01:33 Carbon Dioxide 35 mEq/L (23-29) H 12/22/17 01:33 BUN 31 mg/dL (8-23) H 12/22/17 01:33 Est GFR (Non-Af Amer) 50 (> 60) L 12/22/17 01:33 BUN/Creatinine Ratio 28 (6-26) H 12/22/17 01:33 Glucose 246 mg/dL (70-105) H 12/22/17 01:33 POC Glucose 255 (58-89) H 12/21/17 23:52 Calculated Osmolality 305 (280-300) H 12/22/17 01:33 AST 10 Units/L (13-39) L 12/19/17 10:30 Alkaline Phosphatase 133 Units/L (34-104) H 12/19/17 10:30 B-Natriuretic Peptide 289 pg/mL (Less than 100) H 12/19/17 10:30 - Clinical Findings Intake & Output: Intake & Output 12/21/17 12/22/17 12/22/17 23:59 07:59 15:59 Intake Total 120 / 120 700 / 700 Output Total 1150 / 1150 300 / 300 Balance -1030 / -1030 400 / 400 Weight 112.9 kg Consult Discharge Plan - Plan Referrals: Aayush Chase MD [Primary Care Provider] - - Attending Attestation I examined this patient and my medical decision-making was reviewed with the Resident Physician. I agree with the documented findings, disposition and treatment plan as described except to the extent set forth below. Patient seen and examined. Labs, radiology, chart personally reviewed. 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 Patient is tolerating noninvasive ventilation and she is feeling better. One more time she has significant mechanical impairment with diaphragmatic Hernia that she will need to take care of if possible in order for her to improve in the future. Cardiovascular: stable GI: Nutrition per dietary and GI prophylaxis per routine Heme: DVT prophylaxis per routine ID: Continue antibiotics and plan to de-escalation Renal; urine out put and renal funtion reviewed Endorcine: blood glucose is monitored Lines: all lines checked and no evidence of infections Skin: skin care to prevent pressure ulcers per nursing routine care <Edward Alanis - Last Filed: 12/22/17 11:25> Date of Encounter: 12/22/17 Time of Encounter: 08:47 Assessment and Plan (1) Acute on chronic respiratory failure with hypoxia and hypercapnia Current Visit: Yes Status: Acute Respiratory panel negative Cont Solu-medrol, duonebs, and Levaquin (day 3) BiPAP as needed (2) COPD exacerbation Current Visit: Yes Status: Acute all plans as above (3) Diaphragmatic hernia Current Visit: Yes Status: Acute Chronic right sided hernia, likely significant contributor to respiratory status Will need to revisit repair with second opinion in the future, which has been discussed with the patient Qualifiers: Obstruction and gangrene presence: without obstruction or gangrene Qualified Code(s): K44.9 - Diaphragmatic hernia without obstruction or gangrene (4) Dizziness Current Visit: Yes Status: Acute (5) Morbid obesity Current Visit: Yes Status: Chronic Likely contributing factor of OIH and overall respiratory status (6) Diabetes Current Visit: No Status: Chronic Added SSI ADA diet Monitor FSBG Qualifiers: Diabetes mellitus type: type 2 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 insulin use: without correction use Diabetes mellitus complication status: with kidney complications Diabetes mellitus complication detail: with chronic kidney disease Chronic kidney disease stage: stage 3 (moderate) Qualified Code(s): E11.22 - Type 2 diabetes mellitus with diabetic chronic kidney disease; N18.3 - Chronic kidney disease, stage 3 (moderate); N18.3 - Chronic kidney disease, stage 3 (moderate) (7) Anemia Current Visit: No Status: Chronic Hgb 7.6 Will check B12 cont check CBC qAM Clinically stable; may consider transfusion if significant drop in Hgb or clinical signs of anemia Qualifiers: Anemia type: unspecified type Qualified Code(s): D64.9 - Anemia, unspecified (8) MARIFER (acute kidney injury) Current Visit: Yes Status: Acute stable and virtually normal; will monitor qAM (9) Hyperkalemia Current Visit: Yes Status: Acute 5.4 this AM Possibly related to ARB Will recheck and monitor daily Hold ARB if needed Other interventions if needed (10) DVT prophylaxis Current Visit: Yes Status: Acute per hospitalist plan Subjective Interval history: States feeling much better today. Used BiPAP overnight. Presently in no respiratory distress on 3L nasal O2. Per RN, did have elevated FSBG (mid 200s) . No overnight events or present concerns by patient. Objective PUL Vital signs: Last Vital Signs Temp 98.7 F 12/22/17 03:54 Pulse 77 12/22/17 03:54 Resp 10 12/22/17 07:31 BP 118/78 12/22/17 07:31 Pulse Ox 95 12/22/17 07:31 CONSTITUTIONAL: Alert and oriented X3, well-nourished, well appearing, in no apparent distress HEAD: Normocephalic; atraumatic. EYES: PERRL, no scleral icterus, no drainage, no conjunctival injection Oropharynx: pink/moist RESP: NRD without use of accessory musculature, lung sounds diminished on the right, transient wheezes on auscultation of left lung CARD: Regular rhythm, without murmurs, rubs, or gallop ABD: grossly normal, soft, non-tender SKIN: normal appearance, no pallor/diaphoresis,mottling,jaundice,cyanosis EXT: Rad pulses 2+ and symmetrical; no lateralizing edema; no other lesions seen PSYCH: appropriate mood/affect Results - Laboratory Findings CBC and BMP: 12/22/17 01:33 12/22/17 01:33 ABG ABG pH 7.43 pH Units (7.32-7.45) D 12/21/17 15:54 ABG pCO2 67 mmHg (35-45) H D 12/21/17 15:54 ABG pO2 159 mmHg (85-104) H D 12/21/17 15:54 ABG O2 Saturation 99 % (95-98) H 12/21/17 15:54 Abnormal lab findings: Abnormal lab results RBC 2.63 M/mcL (3.82-4.97) L 12/22/17 01:33 Hgb 7.6 g/dL (11.5-15.4) L 12/22/17 01:33 Hct 26.8 % (35.3-44.9) L 12/22/17 01:33 MCV 101.9 fL (83.0-100.0) H 12/22/17 01:33 MCHC 28.4 g/dL (31.6-35.5) L 12/22/17 01:33 Plt Count 110 K/mcL (140-400) L 12/22/17 01:33 MPV 13.0 fL (9.4-12.4) H 12/22/17 01:33 Lymphocytes # 0.4 K/mcL (0.6-4.6) L 12/22/17 01:33 Platelet Estimate Slight Decrease (Normal) L 12/22/17 01:33 Polychromasia 1+ (Not Present) A 12/22/17 01:33 Hypochromasia Present (Not Present) A 12/22/17 01:33 Stomatocytes 1+ (Not Present) A 12/22/17 01:33 ABG pCO2 67 mmHg (35-45) H D 12/21/17 15:54 ABG pO2 159 mmHg (85-104) H D 12/21/17 15:54 ABG HCO3 44 mEq/L (21-27) H 12/21/17 15:54 ABG Total CO2 46 mEq/L (20-26) H 12/21/17 15:54 ABG O2 Saturation 99 % (95-98) H 12/21/17 15:54 ABG Base Excess 17 mEq/L (-2 to 3) H 12/21/17 15:54 VBG pH 7.25 pH Units (7.32-7.42) L 12/19/17 12:24 VBG pCO2 92 mmHg (41-51) H* 12/19/17 12:24 VBG pO2 88 mmHg (25-50) H 12/19/17 12:24 VBG HCO3 40 mEq/L (21-27) H 12/19/17 12:24 Potassium 5.4 mEq/L (3.5-5.1) H 12/22/17 01:33 Carbon Dioxide 35 mEq/L (23-29) H 12/22/17 01:33 BUN 31 mg/dL (8-23) H 12/22/17 01:33 Est GFR (Non-Af Amer) 50 (> 60) L 12/22/17 01:33 BUN/Creatinine Ratio 28 (6-26) H 12/22/17 01:33 Glucose 246 mg/dL (70-105) H 12/22/17 01:33 POC Glucose 255 (58-89) H 12/21/17 23:52 Calculated Osmolality 305 (280-300) H 12/22/17 01:33 AST 10 Units/L (13-39) L 12/19/17 10:30 Alkaline Phosphatase 133 Units/L (34-104) H 12/19/17 10:30 B-Natriuretic Peptide 289 pg/mL (Less than 100) H 12/19/17 10:30 - Clinical Findings Intake & Output: Intake & Output 12/21/17 12/22/17 12/22/17 23:59 07:59 15:59 Intake Total 120 / 120 700 / 700 Output Total 1150 / 1150 300 / 300 Balance -1030 / -1030 400 / 400 Weight 112.9 kg
[2017-12-22] MEDS ORDERED: Levofloxacin 750 MG/150 ML 750 MG/150 ML BAG IVPB SCH (09:00)
[2017-12-22] MEDS: Gabapentin 300 MG CAPSULE PO SCH (20:11)
[2017-12-22] MEDS: Latanoprost 2.5 ML BOTTLE BOTH EYES SCH (20:14)
[2017-12-23] MEDS: Ipratropium/Albuterol Neb 3 ML IH SCH ×6 (00:01→20:01)
[2017-12-23 03:24] LABS: Calcium 9.1 mg/dL (8.6-10.3); Potassium 5.2 mEq/L (3.5-5.1)
[2017-12-23] MEDS: MethylPREDNISolone 40 MG/ML VIAL IVP SCH (03:38)
[2017-12-23 03:43] LABS: Hematocrit 25.3 % (35.3-44.9); Hemoglobin 7.5 g/dL (11.5-15.4); Immature Granulocytes % 1.2 % (0-4); Immature Platelets 13.1 % (1.1-6.1); Lymphocytes # 0.6 K/mcL (0.6-4.6); Lymphocytes % 9.4 %; Mean Corpuscular HGB Conc 29.6 g/dL (31.6-35.5); Mean Corpuscular Hemoglobin 29.1 pg (28.0-33.3); Mean Corpuscular Volume 98.1 fL (83.0-100.0); Mean Platelet Volume 12.6 fL (9.4-12.4); Monocytes # 0.3 K/mcL (0.0-1.3); Monocytes % 5.3 %; Neutrophils # 5.1 K/mcL (1.6-8.9); Platelet Count 127 K/mcL (140-400); Red Blood Count 2.58 M/mcL (3.82-4.97); Segmented Neutrophils % 84.1 %
[2017-12-23] MEDS: *HR* Heparin 5,000 UNIT/ML VIAL SQ SCH ×2 (05:37→18:01)
--- NOTE | 2017-12-23 07:23 | Pulmonology Progress Note ---
<Edward Alanis - Last Filed: 12/23/17 09:07> Date of Encounter: 12/23/17 Time of Encounter: 07:22 Assessment and Plan (1) Acute on chronic respiratory failure with hypoxia and hypercapnia Current Visit: Yes Status: Acute Respiratory panel negative Most likely multifactorial including obesity-hypoventilation, COPD, and diaphragmatic hernia induced restriction Cont duonebs and Levaquin (day 4 -- changed to PO) Changed solumedrol to prednisone taper -- 40mg qd x 3 days, 30mg qd x 3 days, 20mg qd x 3 days, 10mg qd x 3 days BiPAP as needed (2) COPD exacerbation Current Visit: Yes Status: Acute all plans as above (3) Diaphragmatic hernia Current Visit: Yes Status: Acute Chronic right sided hernia, likely significant contributor to respiratory status Will need to revisit repair with second opinion in the future, which has been discussed with the patient Qualifiers: Obstruction and gangrene presence: without obstruction or gangrene Qualified Code(s): K44.9 - Diaphragmatic hernia without obstruction or gangrene (4) Dizziness Current Visit: Yes Status: Acute no recurrent symptoms; VSS (5) Morbid obesity Current Visit: Yes Status: Chronic Likely contributing factor of OIH and overall respiratory status (6) Diabetes Current Visit: No Status: Chronic Continues to have significantly elevated FSBG; changed SSI to medium dose scale ADA diet Monitor FSBG Qualifiers: Diabetes mellitus type: type 2 Diabetes mellitus chcf insulin use: without terminal block assembler use Diabetes mellitus complication status: with kidney complications Diabetes mellitus complication detail: with chronic kidney disease Chronic kidney disease stage: stage 3 (moderate) Qualified Code(s): E11.22 - Type 2 diabetes mellitus with diabetic chronic kidney disease; N18.3 - Chronic kidney disease, stage 3 (moderate); N18.3 - Chronic kidney disease, stage 3 (moderate) (7) Anemia Current Visit: No Status: Chronic Hgb 7.5 this AM, not significantly changed from prior AM lab B12 pending; called lab cont check CBC qAM Clinically stable; may consider transfusion if significant drop in Hgb or clinical signs of anemia Qualifiers: Anemia type: unspecified type Qualified Code(s): D64.9 - Anemia, unspecified (8) MARIFER (acute kidney injury) Current Visit: Yes Status: Acute slightly elevated today; transitioning to PO Lasix, but may decrease dose if MARIFER worsens or persists BPs have been normal and stable (9) Hyperkalemia Current Visit: Yes Status: Acute 5.2 this AM Possibly related to ARB; held Valsartan pending trend of K+ Will recheck and monitor daily Other interventions if needed (10) DVT prophylaxis Current Visit: Yes Status: Acute subcutaneous heparin Subjective Principal diagnosis: Respiratory Decompensation, COPD exac Interval history: Subjectively continues to improve and inquires as to when/where will be discharged (e.g., SNF). Uses BiPAP at night. Presently in no respiratory distress on 3L nasal O2. Per RN, did have elevated FSBG (mid 200s). Working with PT daily and is able to transfer to bedside chair. No overnight events or present concerns by patient. Objective PUL Vital signs: Last Vital Signs Temp 98.3 F 12/23/17 04:00 Pulse 72 12/23/17 06:00 Resp 22 12/23/17 06:00 BP 127/64 12/23/17 04:00 Pulse Ox 97 12/23/17 06:00 CONSTITUTIONAL: Alert and oriented X3, well-nourished, well appearing, in no apparent distress HEAD: Normocephalic; atraumatic. EYES: PERRL, no scleral icterus, no drainage, no conjunctival injection Oropharynx: pink/moist RESP: NRD without use of accessory musculature, lung sounds diminished on the right, no wheezes heard today CARD: Regular rhythm, without murmurs, rubs, or gallop ABD: grossly normal, soft, non-tender SKIN: normal appearance, no pallor/diaphoresis,mottling,jaundice,cyanosis EXT: Rad pulses 2+ and symmetrical; no lateralizing edema; no other lesions seen PSYCH: appropriate mood/affect Results - Laboratory Findings CBC and BMP: 12/23/17 02:45 12/23/17 02:45 ABG ABG pH 7.43 pH Units (7.32-7.45) D 12/21/17 15:54 ABG pCO2 67 mmHg (35-45) H D 12/21/17 15:54 ABG pO2 159 mmHg (85-104) H D 12/21/17 15:54 ABG O2 Saturation 99 % (95-98) H 12/21/17 15:54 Abnormal lab findings: Abnormal lab results RBC 2.58 M/mcL (3.82-4.97) L 12/23/17 02:45 Hgb 7.5 g/dL (11.5-15.4) L 12/23/17 02:45 Hct 25.3 % (35.3-44.9) L 12/23/17 02:45 MCHC 29.6 g/dL (31.6-35.5) L 12/23/17 02:45 Plt Count 127 K/mcL (140-400) L 12/23/17 02:45 MPV 12.6 fL (9.4-12.4) H 12/23/17 02:45 Platelet Estimate Slight Decrease (Normal) L 12/22/17 01:33 Immature Plt Fraction 13.1 % (1.1-6.1) H 12/23/17 02:45 Polychromasia 1+ (Not Present) A 12/22/17 01:33 Hypochromasia Present (Not Present) A 12/22/17 01:33 Stomatocytes 1+ (Not Present) A 12/22/17 01:33 ABG pCO2 67 mmHg (35-45) H D 12/21/17 15:54 ABG pO2 159 mmHg (85-104) H D 12/21/17 15:54 ABG HCO3 44 mEq/L (21-27) H 12/21/17 15:54 ABG Total CO2 46 mEq/L (20-26) H 12/21/17 15:54 ABG O2 Saturation 99 % (95-98) H 12/21/17 15:54 ABG Base Excess 17 mEq/L (-2 to 3) H 12/21/17 15:54 VBG pH 7.25 pH Units (7.32-7.42) L 12/19/17 12:24 VBG pCO2 92 mmHg (41-51) H* 12/19/17 12:24 VBG pO2 88 mmHg (25-50) H 12/19/17 12:24 VBG HCO3 40 mEq/L (21-27) H 12/19/17 12:24 Potassium 5.2 mEq/L (3.5-5.1) H 12/23/17 02:45 Carbon Dioxide 37 mEq/L (23-29) H 12/23/17 02:45 BUN 44 mg/dL (8-23) H 12/23/17 02:45 Creatinine 1.36 mg/dL (0.60-1.20) H 12/23/17 02:45 Est GFR ( Amer) 48 (> 60) L 12/23/17 02:45 Est GFR (Non-Af Amer) 39 (> 60) L 12/23/17 02:45 BUN/Creatinine Ratio 32 (6-26) H 12/23/17 02:45 Glucose 300 mg/dL (70-105) H 12/23/17 02:45 POC Glucose 233 (58-89) H 12/22/17 19:24 Calculated Osmolality 310 (280-300) H 12/23/17 02:45 AST 10 Units/L (13-39) L 12/19/17 10:30 Alkaline Phosphatase 133 Units/L (34-104) H 12/19/17 10:30 B-Natriuretic Peptide 289 pg/mL (Less than 100) H 12/19/17 10:30 - Clinical Findings Intake & Output: Intake & Output 12/22/17 12/22/17 12/23/17 15:59 23:59 07:59 Intake Total 390 / 390 120 / 120 Output Total 700 / 700 375 / 375 250 / 250 Balance -310 / -310 -255 / -255 -250 / -250 Consult Discharge Plan - Plan Referrals: Aayush Chase MD [Primary Care Provider] - <Alfonso Mcmahan - Last Filed: 12/23/17 11:04> Date of Encounter: 12/23/17 Objective PUL Vital signs: Last Vital Signs Temp 98.3 F 12/23/17 04:00 Pulse 72 12/23/17 06:00 Resp 22 12/23/17 06:00 BP 127/64 12/23/17 04:00 Pulse Ox 97 12/23/17 06:00 Results - Laboratory Findings CBC and BMP: 12/23/17 02:45 12/23/17 02:45 ABG ABG pH 7.43 pH Units (7.32-7.45) D 12/21/17 15:54 ABG pCO2 67 mmHg (35-45) H D 12/21/17 15:54 ABG pO2 159 mmHg (85-104) H D 12/21/17 15:54 ABG O2 Saturation 99 % (95-98) H 12/21/17 15:54 Abnormal lab findings: Abnormal lab results RBC 2.58 M/mcL (3.82-4.97) L 12/23/17 02:45 Hgb 7.5 g/dL (11.5-15.4) L 12/23/17 02:45 Hct 25.3 % (35.3-44.9) L 12/23/17 02:45 MCHC 29.6 g/dL (31.6-35.5) L 12/23/17 02:45 Plt Count 127 K/mcL (140-400) L 12/23/17 02:45 MPV 12.6 fL (9.4-12.4) H 12/23/17 02:45 Platelet Estimate Slight Decrease (Normal) L 12/22/17 01:33 Immature Plt Fraction 13.1 % (1.1-6.1) H 12/23/17 02:45 Polychromasia 1+ (Not Present) A 12/22/17 01:33 Hypochromasia Present (Not Present) A 12/22/17 01:33 Stomatocytes 1+ (Not Present) A 12/22/17 01:33 ABG pCO2 67 mmHg (35-45) H D 12/21/17 15:54 ABG pO2 159 mmHg (85-104) H D 12/21/17 15:54 ABG HCO3 44 mEq/L (21-27) H 12/21/17 15:54 ABG Total CO2 46 mEq/L (20-26) H 12/21/17 15:54 ABG O2 Saturation 99 % (95-98) H 12/21/17 15:54 ABG Base Excess 17 mEq/L (-2 to 3) H 12/21/17 15:54 VBG pH 7.25 pH Units (7.32-7.42) L 12/19/17 12:24 VBG pCO2 92 mmHg (41-51) H* 12/19/17 12:24 VBG pO2 88 mmHg (25-50) H 12/19/17 12:24 VBG HCO3 40 mEq/L (21-27) H 12/19/17 12:24 Potassium 5.2 mEq/L (3.5-5.1) H 12/23/17 02:45 Carbon Dioxide 37 mEq/L (23-29) H 12/23/17 02:45 BUN 44 mg/dL (8-23) H 12/23/17 02:45 Creatinine 1.36 mg/dL (0.60-1.20) H 12/23/17 02:45 Est GFR ( Amer) 48 (> 60) L 12/23/17 02:45 Est GFR (Non-Af Amer) 39 (> 60) L 12/23/17 02:45 BUN/Creatinine Ratio 32 (6-26) H 12/23/17 02:45 Glucose 300 mg/dL (70-105) H 12/23/17 02:45 POC Glucose 233 (58-89) H 12/22/17 19:24 Calculated Osmolality 310 (280-300) H 12/23/17 02:45 AST 10 Units/L (13-39) L 12/19/17 10:30 Alkaline Phosphatase 133 Units/L (34-104) H 12/19/17 10:30 B-Natriuretic Peptide 289 pg/mL (Less than 100) H 12/19/17 10:30 - Clinical Findings Intake & Output: Intake & Output 12/22/17 12/22/17 12/23/17 15:59 23:59 07:59 Intake Total 390 / 390 120 / 120 Output Total 700 / 700 375 / 375 250 / 250 Balance -310 / -310 -255 / -255 -250 / -250 - Attending Attestation I examined this patient and my medical decision-making was reviewed with the Resident Physician. I agree with the documented findings, disposition and treatment plan as described except to the extent set forth below. Patient seen and examined. Labs, radiology, chart personally reviewed. Agree with resident's history and physical, assessment, plan with following comments: MARBLE CARVER: Patient follows commands, Pulmonary: Acceptable oxygenation and ventilation and she is feeling better. Continue noninvasive ventilation. Taper systemic steroid. Patient stable to be transferred to the floor. Cardiovascular: stable GI: Nutrition per dietary and GI prophylaxis per routine Heme: DVT prophylaxis per routine ID: Continue antibiotics and plan to de-escalation Renal; urine out put and renal funtion reviewed Endorcine: blood glucose is monitored Lines: all lines checked and no evidence of infections Skin: skin care to prevent pressure ulcers per nursing routine care
[2017-12-23] MEDS: Insulin LISPRO 300 UNITS/3 ML VIAL SQ SCH ×5 (08:25→20:43)
[2017-12-23] MEDS: Valsartan 80 MG TABLET PO SCH (08:41)
[2017-12-23] MEDS: Furosemide 40 MG/4 ML VIAL IVP SCH (08:42)
[2017-12-23] MEDS: Artificial Tears SOLN 15 ML BOTTLE OP SCH ×4 (08:47→20:40)
[2017-12-23] MEDS ORDERED: levoFLOXacin 750 MG TABLET PO SCH (09:00)
[2017-12-23] MEDS ORDERED: predniSONE 20 MG TABLET PO SCH (09:00)
[2017-12-23] MEDS ORDERED: Insulin LISPRO 300 UNITS/3 ML VIAL SQ SCH ×2 (09:09→21:00)
[2017-12-23] MEDS ORDERED: Dextrose Gel 15 GM/37.5 ML TUBE PO PRN ×2 (09:51)
[2017-12-23] MEDS ORDERED: Naloxone 0.4 MG/ML INJ IVP PRN (09:51)
[2017-12-23] MEDS ORDERED: *HR* Dextrose 50 % in Water (Syg) 50 ML SYRINGE IVP PRN (09:51)
[2017-12-23] MEDS ORDERED: D5% in Water 1,000 ML IVC PRN (09:51)
[2017-12-23] MEDS: levoFLOXacin 750 MG TABLET PO SCH (11:58)
[2017-12-23] MEDS: Acetaminophen 325 MG TABLET PO PRN (15:08)
[2017-12-23] MEDS ORDERED: Insulin LISPRO 300 UNITS/3 ML VIAL SQ ONE (16:46)
[2017-12-23] MEDS: Gabapentin 300 MG CAPSULE PO SCH (20:38)
[2017-12-23] MEDS: Latanoprost 2.5 ML BOTTLE BOTH EYES SCH (20:41)
[2017-12-23] MEDS: Insulin DETEMIR 100 UNIT/ML X5UNITS SQ SCH (20:42)
[2017-12-24] MEDS: Ipratropium/Albuterol Neb 3 ML IH SCH ×7 (00:28→23:14)
[2017-12-24 05:29] LABS: Calcium 9.3 mg/dL (8.6-10.3); Potassium 4.9 mEq/L (3.5-5.1)
[2017-12-24 05:33] LABS: Hematocrit 26.3 % (35.3-44.9); Hemoglobin 7.7 g/dL (11.5-15.4); Immature Granulocytes % 0.5 % (0-4); Lymphocytes # 1.3 K/mcL (0.6-4.6); Lymphocytes % 15.5 %; Mean Corpuscular HGB Conc 29.3 g/dL (31.6-35.5); Mean Corpuscular Hemoglobin 28.7 pg (28.0-33.3); Mean Corpuscular Volume 98.1 fL (83.0-100.0); Mean Platelet Volume 12.9 fL (9.4-12.4); Monocytes # 0.9 K/mcL (0.0-1.3); Monocytes % 11.1 %; Neutrophils # 5.9 K/mcL (1.6-8.9); Platelet Count 138 K/mcL (140-400); Red Blood Count 2.68 M/mcL (3.82-4.97); Red Cell Distribution Width 13.2 % (11.5-14.5); Segmented Neutrophils % 72.9 %
[2017-12-24] MEDS: *HR* Heparin 5,000 UNIT/ML VIAL SQ SCH ×2 (07:20→17:37)
[2017-12-24] MEDS ORDERED: Furosemide 40 MG TABLET PO SCH (08:00)
[2017-12-24] MEDS: Insulin LISPRO 300 UNITS/3 ML VIAL SQ SCH ×4 (08:31→22:25)
[2017-12-24] MEDS: predniSONE 20 MG TABLET PO SCH (08:32)
[2017-12-24] MEDS: levoFLOXacin 750 MG TABLET PO SCH (08:32)
[2017-12-24] MEDS: Furosemide 40 MG TABLET PO SCH ×2 (08:33→17:37)
[2017-12-24] MEDS: Artificial Tears SOLN 15 ML BOTTLE OP SCH ×4 (08:36→22:26)
[2017-12-24] MEDS ORDERED: Valsartan 80 MG TABLET PO SCH (09:00)
[2017-12-24] MEDS: traMADol 50 MG TABLET PO PRN (14:11)
--- NOTE | 2017-12-24 16:07 | Internal Med Progress Note ---
<Pastor Manuel - Last Filed: 12/24/17 16:04> Date of Encounter: 12/24/17 Time of Encounter: 11:45 - Assessment and plan (1) Acute on chronic respiratory failure with hypoxia and hypercapnia Current Visit: Yes Status: Acute Assessment and plan: Acute respiratory failure on chronic respiratory failure, improved The patient says that she's able to breathe significantly easier She is still coughing with sputum production, however she feels that this is less frequent Currently being treated for COPD exacerbation Levaquin Day 02/13 Duonebs scheduled Prednisone taper 40mg qd x 3 days, 30mg qd x 3 days, 20mg qd x 3 days, 10mg qd x 3 days BiPAP as needed (2) COPD exacerbation Current Visit: Yes Status: Acute Assessment and plan: Plan as above (3) MARIFER (acute kidney injury) Current Visit: Yes Status: Acute Assessment and plan: MARIFER on CKD Stage 3 Serum creatinine is consistent with previous day We will continue to hydrate gently with gentle diuresis (4) Anemia Current Visit: Yes Status: Chronic Assessment and plan: Hgb 7.7 this AM, not significantly changed from prior AM lab cont check CBC qAM Clinically stable; may consider transfusion if significant drop in Hgb or clinical signs of anemia Qualifiers: Anemia type: unspecified type Qualified Code(s): D64.9 - Anemia, unspecified (5) DVT prophylaxis Current Visit: Yes Status: Acute Assessment and plan: SQ Heparin - Subjective Interval history: The patient is resting comfortably in bed at time of examination. She says that she is feeling much better than she was previously, and is having much less shortness of breath than she did before. She has no acute complaints at this time. - Constitutional Vitals: Temp Pulse Resp BP Pulse Ox 97.9 F 90 16 142/58 94 12/24/17 15:40 12/24/17 15:40 12/24/17 15:40 12/24/17 15:40 12/24/17 15:40 General appearance: Present: A&O X 3, morbidly obese, answers questions appropriately Exam: Gen.: Vitals noted. No acute distress. AAOx3 HEENT: Normocephalic, atraumatic Neck: Supple. No adenopathy. Cardiac: RRR, no murmur, +S1/S2 Pulmonary: Diminished lung sounds (R>L) with fine crackles scattered throughout and minimal superimposed wheezes Abdomen: soft, nontender, BS noted, no guarding MSK: ROM intact, no joint swelling noted Extremities: 2+ LE edema with some evidence of chronic stasis Neuro: A&Ox3, moves all extremities, no focal deficits Psych: Appropriate mood and behavior Internal Medicine: Result - Labs CBC & Chem 7: 12/24/17 04:41 12/24/17 04:41 Labs: Short CBC 12/24/17 Range/Units 04:41 WBC 8.1 (4.3-11.1) K/mcL Hgb 7.7 L (11.5-15.4) g/dL Hct 26.3 L (35.3-44.9) % Plt Count 138 L (140-400) K/mcL Neutrophils # 5.9 (1.6-8.9) K/mcL BMP 12/24/17 04:41 Sodium 144 Potassium 4.9 Chloride 95 L Carbon Dioxide 38 H BUN 55 H Creatinine 1.39 H Glucose 121 H Calcium 9.3 - ABG Interpretation ABG results: ABG ABG pH 7.43 pH Units (7.32-7.45) D 12/21/17 15:54 ABG pCO2 67 mmHg (35-45) H D 12/21/17 15:54 ABG pO2 159 mmHg (85-104) H D 12/21/17 15:54 ABG O2 Saturation 99 % (95-98) H 12/21/17 15:54 Consult Discharge Plan - Plan Referrals: Aayush Chase MD [Primary Care Provider] - <Olvni Randhawa - Last Filed: 12/24/17 18:23> Date of Encounter: 12/24/17 - Assessment and plan (1) Acute on chronic respiratory failure with hypoxia and hypercapnia Current Visit: Yes Status: Acute (2) Diastolic CHF Current Visit: Yes Status: Acute Qualifiers: Heart failure chronicity: acute on chronic Qualified Code(s): I50.33 - Acute on chronic diastolic (congestive) heart failure (3) Pneumonia Current Visit: Yes Status: Resolved Qualifiers: Pneumonia type: due to unspecified organism Laterality: left Lung location: unspecified part of lung Qualified Code(s): J18.9 - Pneumonia, unspecified organism (4) MARIFER (acute kidney injury) Current Visit: Yes Status: Acute (5) COPD (chronic obstructive pulmonary disease) Current Visit: No Status: Acute Qualifiers: COPD type: COPD with acute exacerbation Qualified Code(s): J44.1 - Chronic obstructive pulmonary disease with (acute) exacerbation (6) Dizziness Current Visit: Yes Status: Acute (7) DVT prophylaxis Current Visit: Yes Status: Acute - Constitutional Vitals: Temp Pulse Resp BP Pulse Ox 97.9 F 90 24 142/58 96 12/24/17 15:40 12/24/17 15:40 12/24/17 15:41 12/24/17 15:40 12/24/17 15:41 Internal Medicine: Result - Labs CBC & Chem 7: 12/24/17 04:41 12/24/17 04:41 Labs: Short CBC 12/24/17 Range/Units 04:41 WBC 8.1 (4.3-11.1) K/mcL Hgb 7.7 L (11.5-15.4) g/dL Hct 26.3 L (35.3-44.9) % Plt Count 138 L (140-400) K/mcL Neutrophils # 5.9 (1.6-8.9) K/mcL BMP 12/24/17 04:41 Sodium 144 Potassium 4.9 Chloride 95 L Carbon Dioxide 38 H BUN 55 H Creatinine 1.39 H Glucose 121 H Calcium 9.3 - ABG Interpretation ABG results: ABG ABG pH 7.43 pH Units (7.32-7.45) D 12/21/17 15:54 ABG pCO2 67 mmHg (35-45) H D 12/21/17 15:54 ABG pO2 159 mmHg (85-104) H D 12/21/17 15:54 ABG O2 Saturation 99 % (95-98) H 12/21/17 15:54 - Attending Attestation I examined this patient and my medical decision-making was reviewed with the Resident Physician. I agree with the documented findings, disposition and treatment plan as described except to the extent set forth below.
[2017-12-24] MEDS: Gabapentin 300 MG CAPSULE PO SCH (22:21)
[2017-12-24] MEDS: Acetaminophen 325 MG TABLET PO PRN (22:24)
[2017-12-24] MEDS: Insulin DETEMIR 100 UNIT/ML X5UNITS SQ SCH (22:25)
[2017-12-24] MEDS: Latanoprost 2.5 ML BOTTLE BOTH EYES SCH (22:26)
[2017-12-25] MEDS: Ipratropium/Albuterol Neb 3 ML IH SCH ×5 (03:53→20:17)
[2017-12-25] MEDS: *HR* Heparin 5,000 UNIT/ML VIAL SQ SCH ×2 (06:13→17:15)
[2017-12-25 06:37] LABS: Basophils % 0.2 %; Hematocrit 25.6 % (35.3-44.9); Hemoglobin 7.6 g/dL (11.5-15.4); Immature Granulocytes % 0.8 % (0-4); Lymphocytes # 0.6 K/mcL (0.6-4.6); Lymphocytes % 9.5 %; Mean Corpuscular HGB Conc 29.7 g/dL (31.6-35.5); Mean Corpuscular Hemoglobin 29.2 pg (28.0-33.3); Mean Corpuscular Volume 98.5 fL (83.0-100.0); Mean Platelet Volume 12.2 fL (9.4-12.4); Monocytes # 0.7 K/mcL (0.0-1.3); Neutrophils # 4.7 K/mcL (1.6-8.9); Platelet Count 129 K/mcL (140-400); Red Cell Distribution Width 13.2 % (11.5-14.5); Segmented Neutrophils % 77.5 %
[2017-12-25 07:02] LABS: Calcium 9.3 mg/dL (8.6-10.3); Potassium 4.9 mEq/L (3.5-5.1)
[2017-12-25] MEDS: predniSONE 20 MG TABLET PO SCH (09:04)
[2017-12-25] MEDS: Furosemide 40 MG TABLET PO SCH ×2 (09:04→17:15)
[2017-12-25] MEDS: Acetaminophen 325 MG TABLET PO PRN ×2 (09:04→19:54)
[2017-12-25] MEDS: levoFLOXacin 750 MG TABLET PO SCH (09:04)
[2017-12-25] MEDS: Artificial Tears SOLN 15 ML BOTTLE OP SCH ×4 (09:06→19:56)
[2017-12-25] MEDS: Insulin LISPRO 300 UNITS/3 ML VIAL SQ SCH ×4 (09:07→22:00)
--- NOTE | 2017-12-25 09:33 | Internal Med Progress Note ---
<Pastor Manuel - Last Filed: 12/25/17 09:30> Date of Encounter: 12/25/17 Time of Encounter: 07:50 - Assessment and plan (1) Acute on chronic respiratory failure with hypoxia and hypercapnia Current Visit: Yes Status: Acute Assessment and plan: Acute respiratory failure on chronic respiratory failure, improved The patient says that she's able to breathe significantly easier She is still coughing with sputum production, however she feels that this is less frequent BMP shows elevated Bicarb today, we will use BiPAP Currently being treated for COPD exacerbation Levaquin Day 03/16 Duonebs scheduled Prednisone taper by 10mg q3 days, currently 40mg day /3 BiPAP as needed (2) COPD exacerbation Current Visit: Yes Status: Acute Assessment and plan: Plan as above (3) MARIFER (acute kidney injury) Current Visit: Yes Status: Acute Assessment and plan: MARIFER on CKD Stage 3 Serum creatinine is consistent with previous day We will continue to hydrate gently with gentle diuresis (4) Anemia Current Visit: Yes Status: Chronic Assessment and plan: Hgb 7.6 this AM, not significantly changed from prior AM lab cont check CBC qAM Clinically stable; may consider transfusion if significant drop in Hgb or clinical signs of anemia Qualifiers: Anemia type: unspecified type Qualified Code(s): D64.9 - Anemia, unspecified (5) DVT prophylaxis Current Visit: Yes Status: Acute Assessment and plan: SQ Heparin - Subjective Interval history: The patient had no acute concerns overnight. She does say that her left ear is hurting minimally which feels like congestion, but she is otherwise good. She says that she is coughing up more phlegm than she was previously, however she is breathing better than she was same time. She denies acute concerns. - Constitutional Vitals: Temp Pulse Resp BP Pulse Ox 97.5 F L 73 18 136/56 98 12/25/17 07:06 12/25/17 07:06 12/25/17 07:43 12/25/17 07:06 12/25/17 07:43 General appearance: Present: A&O X 3, morbidly obese, answers questions appropriately Exam: Gen: Vitals noted. No acute distress. AAOx3 HEENT: Normocephalic, atraumatic. Tympanic membranes visualized without evidence of erythema or perforation. There is minimal bulging of the Left TM with evidence of fluid which does not appear to be infectious Neck: Supple. No adenopathy. Cardiac: RRR, no murmur, +S1/S2 Pulmonary: Diminished lung sounds (R>L) with fine crackles scattered throughout and minimal superimposed wheezes Abdomen: soft, nontender, BS noted, no guarding MSK: ROM intact, no joint swelling noted Extremities: 2+ LE edema with some evidence of chronic stasis Neuro: A&Ox3, moves all extremities, no focal deficits Psych: Appropriate mood and behavior Internal Medicine: Result - Labs CBC & Chem 7: 12/25/17 05:52 12/25/17 05:52 Labs: Short CBC 12/25/17 Range/Units 05:52 WBC 6.1 (4.3-11.1) K/mcL Hgb 7.6 L (11.5-15.4) g/dL Hct 25.6 L (35.3-44.9) % Plt Count 129 L (140-400) K/mcL Neutrophils # 4.7 (1.6-8.9) K/mcL BMP 12/25/17 05:52 Sodium 140 Potassium 4.9 Chloride 96 L Carbon Dioxide 43 H* BUN 43 H Creatinine 1.17 Glucose 219 H Calcium 9.3 - ABG Interpretation ABG results: ABG ABG pH 7.43 pH Units (7.32-7.45) D 12/21/17 15:54 ABG pCO2 67 mmHg (35-45) H D 12/21/17 15:54 ABG pO2 159 mmHg (85-104) H D 12/21/17 15:54 ABG O2 Saturation 99 % (95-98) H 12/21/17 15:54 Consult Discharge Plan - Plan Referrals: Aayush Chase MD [Primary Care Provider] - <ApolinarAlbinelio - Last Filed: 12/25/17 17:47> Date of Encounter: 12/25/17 - Constitutional Vitals: Temp Pulse Resp BP Pulse Ox 98.0 F 87 16 140/71 99 12/25/17 15:52 12/25/17 15:52 12/25/17 15:52 12/25/17 15:52 12/25/17 15:52 Internal Medicine: Result - Labs CBC & Chem 7: 12/25/17 05:52 12/25/17 05:52 Labs: Short CBC 12/25/17 Range/Units 05:52 WBC 6.1 (4.3-11.1) K/mcL Hgb 7.6 L (11.5-15.4) g/dL Hct 25.6 L (35.3-44.9) % Plt Count 129 L (140-400) K/mcL Neutrophils # 4.7 (1.6-8.9) K/mcL BMP 12/25/17 05:52 Sodium 140 Potassium 4.9 Chloride 96 L Carbon Dioxide 43 H* BUN 43 H Creatinine 1.17 Glucose 219 H Calcium 9.3 - ABG Interpretation ABG results: ABG ABG pH 7.43 pH Units (7.32-7.45) D 12/21/17 15:54 ABG pCO2 67 mmHg (35-45) H D 12/21/17 15:54 ABG pO2 159 mmHg (85-104) H D 12/21/17 15:54 ABG O2 Saturation 99 % (95-98) H 12/21/17 15:54 - Attending Attestation I examined this patient and my medical decision-making was reviewed with the Resident Physician Dr. Manuel. I agree with the documented findings, disposition and treatment plan as described except to the extent set forth below. This is 62 y/o F with known COPD, Chronic hypoxic and hyper capneic resp failure who uses BiPAP at home admitted here with Pneumonia and COPD exacerbation. Pt states she is feeling better today. Denied any CP / SOB Gen: A, A, O x3 Chest: Diminished BS B/L, Mild wheezing, mild ronchi Heart: S1S2+ a/p 1. Acute on chronic hypoxic / Hypercapneic resp failure 2. Acute COPD exacerbation 3. LLL PNA - mostly bacterial cont BiPAP QHS Cont tapering steroids 7 days Abx 4. Physical deconditioning Need rehab placement PT / OT eval
[2017-12-25] MEDS: Gabapentin 300 MG CAPSULE PO SCH (19:55)
[2017-12-25] MEDS: Latanoprost 2.5 ML BOTTLE BOTH EYES SCH (19:58)
[2017-12-25] MEDS: Insulin DETEMIR 100 UNIT/ML X5UNITS SQ SCH (22:01)
[2017-12-26] MEDS: Ipratropium/Albuterol Neb 3 ML IH SCH ×7 (03:37→23:10)
[2017-12-26 04:16] LABS: Basophils % 0.2 %; Hematocrit 26.6 % (35.3-44.9); Hemoglobin 7.7 g/dL (11.5-15.4); Immature Granulocytes % 0.9 % (0-4); Lymphocytes # 0.4 K/mcL (0.6-4.6); Lymphocytes % 5.9 %; Mean Corpuscular HGB Conc 28.9 g/dL (31.6-35.5); Mean Corpuscular Hemoglobin 28.9 pg (28.0-33.3); Mean Platelet Volume 12.9 fL (9.4-12.4); Monocytes # 0.4 K/mcL (0.0-1.3); Monocytes % 6.7 %; Neutrophils # 5.7 K/mcL (1.6-8.9); Platelet Count 132 K/mcL (140-400); Red Blood Count 2.66 M/mcL (3.82-4.97); Red Cell Distribution Width 13.2 % (11.5-14.5); Segmented Neutrophils % 86.3 %
[2017-12-26 04:39] LABS: BUN/Creatinine Ratio 35 (6-26); Blood Urea Nitrogen 37 mg/dL (8-23); Calcium 9.5 mg/dL (8.6-10.3); Carbon Dioxide 45 mEq/L (23-29); Chloride 92 mEq/L (98-107); Glucose 246 mg/dL (70-105); Hypochromasia Present (Not Present); Osmolality,Calculated 307 (280-300); Platelet Estimate Slight Decrease (Normal); Potassium 5.2 mEq/L (3.5-5.1); Sodium 140 mEq/L (136-145); eGFR For African Americans > 60 (> 60); eGFR For Non-African Americans 52 (> 60)
[2017-12-26] MEDS: *HR* Heparin 5,000 UNIT/ML VIAL SQ SCH ×2 (06:00→16:55)
[2017-12-26] MEDS: Insulin LISPRO 300 UNITS/3 ML VIAL SQ SCH ×4 (08:38→21:07)
[2017-12-26] MEDS: Furosemide 40 MG TABLET PO SCH ×2 (08:40→16:53)
[2017-12-26] MEDS: levoFLOXacin 750 MG TABLET PO SCH (08:41)
[2017-12-26] MEDS: predniSONE 20 MG TABLET PO SCH (08:41)
[2017-12-26] MEDS: Artificial Tears SOLN 15 ML BOTTLE OP SCH ×4 (08:46→21:08)
[2017-12-26] MEDS: Acetaminophen 325 MG TABLET PO PRN (08:48)
[2017-12-26] MEDS ORDERED: predniSONE 10 MG TABLET PO SCH (09:00)
--- NOTE | 2017-12-26 10:35 | Internal Med Progress Note ---
<ShiloJorge - Last Filed: 12/26/17 17:44> Date of Encounter: 12/26/17 Time of Encounter: 09:25 - Assessment and plan (1) Acute on chronic respiratory failure with hypoxia and hypercapnia Current Visit: Yes Status: Acute Assessment and plan: Patient says her breathing and shortness of breath have improved since yesterday. She still coughing with production of clear sputum but that has improved since yesterday. Bicarbonate level has increased from 43 to 45. Patient currently on BiPAP. - Called respiratory to evaluate BiPAP settings. - Ordered new chest x-ray to follow-up on progress. - Increase in bicarbonate might also be possibly due to contraction alkalosis secondary to use of Lasix. However given her chloride level has been low, this might seem unlikely. - Plan to discharge tomorrow pending results of chest x-ray. Patient has home health nursing. Patient requests to be sent to rehabilitation first. (2) COPD exacerbation Current Visit: Yes Status: Acute Assessment and plan: -Patient on scheduled DuoNeb's. - Currently on day 7 of 7 of Levaquin. Patient has been afebrile white blood cell count has been normal. Levaquin will be discontinued. - Patient on prednisone tapering schedule every 3 days by 10 mg currently on 30 mg prednisone right now. (3) Diastolic CHF Current Visit: Yes Status: Acute Assessment and plan: Echocardiogram on 07/18/17 showed LVEF 65% with moderate LV diastolic dysfunction. - Patient's creatinine has been improving. We will continue to keep patient on current dose of Lasix unless I begin to see an increase in creatinine level. Qualifiers: Heart failure chronicity: acute on chronic Qualified Code(s): I50.33 - Acute on chronic diastolic (congestive) heart failure (4) MARIFER (acute kidney injury) Current Visit: Yes Status: Acute Assessment and plan: Creatinine level at 1.07 and stable. (5) Anemia Current Visit: Yes Status: Chronic Assessment and plan: Hemoglobin increased from 7.6 up to 7.7 since yesterday. - Continue to monitor. Qualifiers: Anemia type: unspecified type Qualified Code(s): D64.9 - Anemia, unspecified (6) DVT prophylaxis Current Visit: Yes Status: Acute Assessment and plan: Heparin 5000 U SQ Q12hr. - Subjective Interval history: Ms. Cox is a 62 year old female with a PMH of CHF, COPD, DM, fibromyalgia, HLD, nd HTN that presents for dizziness. When seen today patient said that her shortness of breath has improved from yesterday. She says that she is breathing a lot better than yesterday. Denies any wheezing. She still is coughing with production of clear sputum but says overall her coughing is improved since yesterday.She denies any fever, chills, nausea, vomiting, abdominal pain, diarrhea, or hematochezia. She denies any dysuria or hematuria. She denies any chest pain. - Constitutional Vitals: Temp Pulse Resp BP Pulse Ox 98 F 79 18 134/67 100 12/26/17 06:23 12/26/17 06:23 12/26/17 07:58 12/26/17 06:23 12/26/17 07:58 General appearance: Present: A&O X 3, morbidly obese, no acute distress, answers questions appropriately - Respiratory Respiratory exam: Present: wheezes (Minor wheezing in the left upper and left lower posterior posts.). Absent: accessory muscle use, rales, rhonchi - Cardiovascular Cardiovascular exam: Present: RRR, +S1, +S2. Absent: diastolic murmur, gallop, rubs, systolic murmur - GI/Abdominal GI/Abdominal exam: Present: normal bowel sounds, soft, no peritoneal signs. Absent: distended, tenderness - Extremities Exam Extremities exam: Present: full ROM, normal capillary refill, pedal edema (+2 bilateral pitting edema), warm, radial pulses palpable and symmetrical. Absent : calf tenderness, cyanotic, tenderness Internal Medicine: Result - Labs CBC & Chem 7: 12/26/17 03:10 12/26/17 03:10 Labs: Short CBC 12/26/17 Range/Units 03:10 WBC 6.6 (4.3-11.1) K/mcL Hgb 7.7 L (11.5-15.4) g/dL Hct 26.6 L (35.3-44.9) % Plt Count 132 L (140-400) K/mcL Neutrophils # 5.7 (1.6-8.9) K/mcL BMP 12/26/17 03:10 Sodium 140 Potassium 5.2 H Chloride 92 L Carbon Dioxide 45 H* BUN 37 H Creatinine 1.07 Glucose 246 H Calcium 9.5 - ABG Interpretation ABG results: ABG ABG pH 7.43 pH Units (7.32-7.45) D 12/21/17 15:54 ABG pCO2 67 mmHg (35-45) H D 12/21/17 15:54 ABG pO2 159 mmHg (85-104) H D 12/21/17 15:54 ABG O2 Saturation 99 % (95-98) H 12/21/17 15:54 Consult Discharge Plan - Plan Referrals: Aayush Chase MD [Primary Care Provider] - <Erlin Marroquin - Last Filed: 12/26/17 17:58> Date of Encounter: 12/26/17 - Constitutional Vitals: Temp Pulse Resp BP Pulse Ox 98.0 F 75 16 134/57 100 12/26/17 15:00 12/26/17 15:00 12/26/17 16:26 12/26/17 15:00 12/26/17 16:26 Internal Medicine: Result - Labs CBC & Chem 7: 12/26/17 03:10 12/26/17 03:10 Labs: Short CBC 12/26/17 Range/Units 03:10 WBC 6.6 (4.3-11.1) K/mcL Hgb 7.7 L (11.5-15.4) g/dL Hct 26.6 L (35.3-44.9) % Plt Count 132 L (140-400) K/mcL Neutrophils # 5.7 (1.6-8.9) K/mcL BMP 12/26/17 03:10 Sodium 140 Potassium 5.2 H Chloride 92 L Carbon Dioxide 45 H* BUN 37 H Creatinine 1.07 Glucose 246 H Calcium 9.5 - ABG Interpretation ABG results: ABG ABG pH 7.43 pH Units (7.32-7.45) D 12/21/17 15:54 ABG pCO2 67 mmHg (35-45) H D 12/21/17 15:54 ABG pO2 159 mmHg (85-104) H D 12/21/17 15:54 ABG O2 Saturation 99 % (95-98) H 12/21/17 15:54 - Attending Attestation I examined this patient and my medical decision-making was reviewed with the Resident Physician. I agree with the documented findings, disposition and treatment plan as described except to the extent set forth below.
[2017-12-26] MEDS: Insulin DETEMIR 100 UNIT/ML X5UNITS SQ SCH (21:06)
[2017-12-26] MEDS: Gabapentin 300 MG CAPSULE PO SCH (21:07)
[2017-12-26] MEDS: traMADol 50 MG TABLET PO PRN (21:07)
[2017-12-26] MEDS: Latanoprost 2.5 ML BOTTLE BOTH EYES SCH (21:08)
[2017-12-26] MEDS: clonazePAM 0.5 MG TABLET PO PRN (21:08)
[2017-12-27] MEDS: Ipratropium/Albuterol Neb 3 ML IH SCH ×6 (03:19→23:42)
[2017-12-27] MEDS: traMADol 50 MG TABLET PO PRN ×2 (05:08→20:21)
[2017-12-27] MEDS: *HR* Heparin 5,000 UNIT/ML VIAL SQ SCH ×2 (05:09→17:46)
[2017-12-27 05:39] LABS: Hemoglobin 7.6 g/dL (11.5-15.4); Immature Granulocytes % 1.4 % (0-4); Lymphocytes # 0.6 K/mcL (0.6-4.6); Lymphocytes % 7.9 %; Mean Corpuscular HGB Conc 29.2 g/dL (31.6-35.5); Mean Corpuscular Hemoglobin 28.9 pg (28.0-33.3); Mean Corpuscular Volume 98.9 fL (83.0-100.0); Mean Platelet Volume 12.4 fL (9.4-12.4); Monocytes # 0.7 K/mcL (0.0-1.3); Monocytes % 8.9 %; Neutrophils # 6.3 K/mcL (1.6-8.9); Platelet Count 130 K/mcL (140-400); Red Blood Count 2.63 M/mcL (3.82-4.97); Red Cell Distribution Width 13.2 % (11.5-14.5); Segmented Neutrophils % 81.8 %
[2017-12-27 06:09] LABS: BUN/Creatinine Ratio 32 (6-26); Blood Urea Nitrogen 35 mg/dL (8-23); Calcium 9.5 mg/dL (8.6-10.3); Carbon Dioxide > 45 mEq/L (23-29); Chloride 88 mEq/L (98-107); Glucose 309 mg/dL (70-105); Osmolality,Calculated 308 (280-300); Potassium 4.7 mEq/L (3.5-5.1); Sodium 139 mEq/L (136-145); eGFR For African Americans > 60 (> 60); eGFR For Non-African Americans 51 (> 60)
[2017-12-27] MEDS ORDERED: predniSONE 10 MG TABLET PO SCH (09:00)
[2017-12-27] MEDS: Insulin LISPRO 300 UNITS/3 ML VIAL SQ SCH ×4 (09:06→20:23)
[2017-12-27] MEDS: predniSONE 10 MG TABLET PO SCH (09:31)
[2017-12-27] MEDS: Furosemide 40 MG TABLET PO SCH ×2 (09:32→17:40)
[2017-12-27] MEDS: Artificial Tears SOLN 15 ML BOTTLE OP SCH ×4 (09:33→20:23)
[2017-12-27] MEDS ORDERED: Furosemide 20 MG/2 ML VIAL IVP ONE (10:22)
[2017-12-27 11:43] LABS: ABG Base Excess 25 mEq/L (-2 to 3); ABG HCO3 52 mEq/L (21-27); ABG Oxygen Saturation 99 % (95-98); ABG PCO2 67 mmHg (35-45); ABG PO2 120 mmHg (85-104); ABG TCO2 54 mEq/L (20-26)
--- NOTE | 2017-12-27 13:26 | Discharge Summary ---
<Jorge Lao - Last Filed: 12/27/17 14:57> Orders not resulted at time of discharge: Pending orders 12/26/17 03:10 MMA (VIT B12 STATUS) AM 0400 12/27/17 10:23 ABG [Arterial Blood Gas] Routine Date of Encounter: 12/27/17 Time of Encounter: 09:10 - Discharge Diagnosis (1) Acute on chronic respiratory failure with hypoxia and hypercapnia Priority: Primary Status: Acute (2) COPD exacerbation Priority: Primary Status: Acute (3) Diastolic CHF Priority: Primary Status: Acute Qualifiers: Heart failure chronicity: acute on chronic Qualified Code(s): I50.33 - Acute on chronic diastolic (congestive) heart failure (4) MARIFER (acute kidney injury) Priority: Primary Status: Acute (5) Anemia Priority: Primary Status: Chronic Qualifiers: Anemia type: unspecified type Qualified Code(s): D64.9 - Anemia, unspecified (6) DVT prophylaxis Priority: Primary Status: Acute Hospital course: Ms. Cox is a 62 year old female with a chief complaint of shortness of breath and dizziness. Past medical history includes CHF, COPD, diabetes mellitus, fibromyalgia, hyperlipidemia, and hypertension. She was admitted on 12/19/2017 for dizziness secondary to dehydration, pneumonia, and COPD. Patient was started on Levaquin but we ended up discontinuing it due to clinical assessment. 2 days later patient was admitted to the ICU for mild cyanosis and low pulse ox readings. She was subsequently diagnosed with CHF and started on Lasix. Last echocardiogram was 65% on 07/28/17. We continued BiPAP and aggressive diuresis. She was started on Zosyn. Blood cultures were negative patient was transitioned to Levaquin. Prednisone changed to 30 mg qd PO. Ordered new CXR due to increase in bicarb. Possible contraction alkalosis 2/ 2 lasix use, but unlikely. Creatinine level improving. Continue current dose of Lasix for CHF. Patient's nourished chest x-ray shows worsening parenchymal airspace opacities in the lower right lung parenchyma and diffusely throughout the left hemithorax. I cannot level continues to be elevated above 45. Clinically rodriguez patient has been improving doing better. When seen today she said her breathing has improved. She denies any shortness of breath. Patient still has a cough with green sputum production that has been a little worse since yesterday but overall better from admission. She denies any fever, nausea , vomiting, abdominal pain, or chest pain. I suspect patient's elevated bicarbonate is chronic. ABG was ordered and did reveal an elevated CO2, but has improved since admission. Patient was given extra dose of Lasix 20 mg IV due to rhonchi clinical exam. Patient will be discharged to SNF. She will continue the rest of her prednisone tapering schedule as directed. Patient will also benefit from Lopressor 25 mg twice a day by mouth for her CHF. She has already finished a seven-day course of Levaquin for COPD exacerbation. Renal function has been improving. Patient should follow-up with PCP in one week. - Time Spent with Patient Total time spent providing and/or coordinating discharge services: Less than 30 minutes - Discharge Medications Prescriptions: Metoprolol [Lopressor] 25 mg PO BID 30 Days #60 tablet predniSONE [PredniSONE] See Taper PO DAILY #12 tablet Home Medications: Esomeprazole Magnesium [Nexium] 40 mg PO DAILY 04/06/16 [History] Glimepiride [Amaryl] 4 mg PO QAM 04/06/16 [History] Latanoprost [Xalatan] 1 drop BOTH EYES HS 04/06/16 [History] Simvastatin [Zocor] 40 mg PO HS 04/06/16 [History] SitaGLIPtin [Januvia] 100 mg PO DAILY 04/06/16 [History] Albuterol Sulfate [Albuterol Inhaler] 2 puff IH Q4H PRN 04/14/17 [History] Citalopram Hydrobromide [Citalopram HBr] 40 mg PO HS 04/14/17 [History] Docusate [Colace] 100 mg PO DAILY 04/14/17 [History] Gabapentin [Neurontin] 600 mg PO HS 04/14/17 [History] Valsartan [Diovan] 80 mg PO DAILY 04/14/17 [History] Spironolactone [Aldactone] 25 mg PO DAILY 07/24/17 [History] Brimonidine 0.2% [Alphagan] 1 drop BOTH EYES AD 12/19/17 [History] Propylene Glycol/Peg 400 [Systane Ultra 0.4-0.3% Eye Drp] 1 drop OP QID [History] clonazePAM [Klonopin] 0.5 mg PO BID PRN 12/19/17 [History] Furosemide [Lasix] 40 mg PO BID 14 Days #28 12/27/17 [Rx] Metoprolol [Lopressor] 25 mg PO BID 30 Days #60 tablet 12/27/17 [Rx] predniSONE [PredniSONE] See Taper PO DAILY #12 tablet 12/27/17 [Rx] Allergies/Adverse Reactions: 3 Allergy/AdvReac Type Severity Reaction Status Date / Time hydrocodone [From Vicodin] AdvReac Nausea Verified 12/19/17 12:48 Hydromorphone [From Dilaudid] AdvReac Nausea Verified 12/19/17 12:48 Date of admission: 12/21/17 11:13 Primary care physician: Aayush Chase MD Consults: 12/21/17 13:47 Consult to Pulmonology [CONS] Stat Consulting Provider: [facility] Reason for Consult: Acute on chronic resp acidosis, hypoxia, hypercapnea, not responding to BiPAP Call Completed: Yes 12/24/17 08:54 Consult to Plumbing Manager [CONS] Routine Reason for SW Consult: placement Discharging clinician: Jorge Lao Anticipated date of discharge: 12/27/17 - Constitutional Vitals: Temp Pulse Resp BP Pulse Ox 98 F 80 14 111/72 98 12/27/17 06:53 12/27/17 11:00 12/27/17 12:37 12/27/17 11:00 12/27/17 12:37 General appearance: Present: A&O X 3, morbidly obese, no acute distress, answers questions appropriately - Respiratory Respiratory exam: Present: rhonchi. Absent: rales, wheezes, tachypnea - Cardiovascular Cardiovascular exam: Present: RRR, +S1, +S2. Absent: diastolic murmur, gallop, rubs, systolic murmur - GI/Abdominal GI/Abdominal exam: Present: normal bowel sounds, soft, no peritoneal signs. Absent: distended, tenderness - Extremities Exam Extremities exam: Present: full ROM, normal capillary refill, pedal edema (+1 bilateral pitting edema), warm, radial pulses palpable and symmetrical. Absent : calf tenderness, cyanotic, tenderness - Patient Status Disposition: Transfer SNF Condition: Fair Overall status at discharge: patient is back to baseline - Discharge Instructions Instructions: Acute Respiratory Distress Syndrome (DC), Chronic Obstructive Pulmonary Disease (DC) Follow Up With: Aayush Chase MD [Primary Care Provider] - - Diet and Activity Activity: as per physical therapy Diet: low salt diet <Loi Gonzales - Last Filed: 12/27/17 15:23> Orders not resulted at time of discharge: Pending orders 12/26/17 03:10 MMA (VIT B12 STATUS) AM 0400 12/27/17 10:23 ABG [Arterial Blood Gas] Routine Date of Encounter: 12/27/17 Hospital course: Ms. Cox is a 62 year old female - Time Spent with Patient Total time spent providing and/or coordinating discharge services: Date of admission: 12/21/17 11:13 Primary care physician: Aayush Chase MD Consults: 12/21/17 13:47 Consult to Pulmonology [CONS] Stat Consulting Provider: [facility] Reason for Consult: Acute on chronic resp acidosis, hypoxia, hypercapnea, not responding to BiPAP Call Completed: Yes 12/24/17 08:54 Consult to Plumbing Manager [CONS] Routine Reason for SW Consult: placement - Constitutional Vitals: Temp Pulse Resp BP Pulse Ox 98 F 80 14 111/72 98 12/27/17 06:53 12/27/17 11:00 12/27/17 12:37 12/27/17 11:00 12/27/17 12:37 - Attending Attestation I personally interviewed and examined this patient. I agree with the findings, assessment, and plan of Dr. Gibson. 62-year-old female admitted with acute on chronic diastolic CHF exacerbation, COPD with acute exacerbation, also with known chronic respiratory failure, multifactorial. Patient also has obesity hypoventilation syndrome. She was doing well on day of discharge. Her CHF was felt to be clinically compensated. Her chest x-ray showed slightly worsening opacities but clinically she was improved. We did not see the need to keep her nostril for an additional day or 2 to monitor this. She was feeling well. We did adjust her medications. She was felt to be compensated respiratory standpoint, noting that her serum bicarbonate runs quite high reflecting a chronic metabolic pulsation for her respiratory acidosis. Continue with scheduled Lasix. We did add a beta marguerite. Need CHF discharge instructions. Close follow-up. Daily weights. Follow-up chest x-ray in short order, within the next week or two. She will likely need up titration of her medications in the near future. When she follow-up with a physician within 3-5 days. 49 minutes spent on discharge and coordination of care. (1) Acute on chronic respiratory failure with hypoxia and hypercapnia Priority: Primary Status: Acute (2) COPD exacerbation Priority: Primary Status: Acute (3) Diastolic CHF Priority: Primary Status: Acute Qualifiers: Heart failure chronicity: acute on chronic Qualified Code(s): I50.33 - Acute on chronic diastolic (congestive) heart failure (4) MARIFER (acute kidney injury) Priority: Primary Status: Acute (5) Anemia Priority: Primary Status: Chronic Qualifiers: Anemia type: unspecified type Qualified Code(s): D64.9 - Anemia, unspecified (6) DVT prophylaxis Priority: Primary Status: Acute Hospital course: Ms. Cox is a 62 year old female with a chief complaint of shortness of breath and dizziness. Past medical history includes CHF, COPD, diabetes mellitus, fibromyalgia, hyperlipidemia, and hypertension. She was admitted on 12/19/2017 for dizziness secondary to dehydration, pneumonia, and COPD. Patient was started on Levaquin but we ended up discontinuing it due to clinical assessment. 2 days later patient was admitted to the ICU for mild cyanosis and low pulse ox readings. She was subsequently diagnosed with CHF and started on Lasix. Last echocardiogram was 65% on 07/28/17. We continued BiPAP and aggressive diuresis. She was started on Zosyn. Blood cultures were negative patient was transitioned to Levaquin. Prednisone changed to 30 mg qd PO. Ordered new CXR due to increase in bicarb. Possible contraction alkalosis 2/ 2 lasix use, but unlikely. Creatinine level improving. Continue current dose of Lasix for CHF. Patient's nourished chest x-ray shows worsening parenchymal airspace opacities in the lower right lung parenchyma and diffusely throughout the left hemithorax. I cannot level continues to be elevated above 45. Clinically rodriguez patient has been improving doing better. When seen today she said her breathing has improved. She denies any shortness of breath. Patient still has a cough with green sputum production that has been a little worse since yesterday but overall better from admission. She denies any fever, nausea , vomiting, abdominal pain, or chest pain. I suspect patient's elevated bicarbonate is chronic. ABG was ordered and did reveal an elevated CO2, but has improved since admission. Patient was given extra dose of Lasix 20 mg IV due to rhonchi clinical exam. Patient will be discharged to SNF. She will continue the rest of her prednisone tapering schedule as directed. Patient will also benefit from Lopressor 25 mg twice a day by mouth for her CHF. She has already finished a seven-day course of Levaquin for COPD exacerbation. Renal function has been improving. Patient should follow-up with PCP in one week.
--- NOTE | 2017-12-27 15:11 | Physician Discharge Referral ---
ExtendedCare Referral Info Transfer To: [facility] Provider in Charge after Transfer: PCP Institutional Level of Care: Skilled - Diagnosis (1) Acute on chronic respiratory failure with hypoxia and hypercapnia Priority: Primary Status: Acute (2) COPD exacerbation Priority: Primary Status: Acute (3) Diastolic CHF Priority: Primary Status: Acute (4) MARIFER (acute kidney injury) Priority: Primary Status: Acute (5) Anemia Priority: Primary Status: Chronic (6) DVT prophylaxis Priority: Primary Status: Acute - Transfer Medications Prescriptions: Metoprolol [Lopressor] 25 mg PO BID 30 Days #60 tablet predniSONE [PredniSONE] See Taper PO DAILY #12 tablet Home Medications: Esomeprazole Magnesium [Nexium] 40 mg PO DAILY 04/06/16 [History] Glimepiride [Amaryl] 4 mg PO QAM 04/06/16 [History] Latanoprost [Xalatan] 1 drop BOTH EYES HS 04/06/16 [History] Simvastatin [Zocor] 40 mg PO HS 04/06/16 [History] SitaGLIPtin [Januvia] 100 mg PO DAILY 04/06/16 [History] Albuterol Sulfate [Albuterol Inhaler] 2 puff IH Q4H PRN 04/14/17 [History] Citalopram Hydrobromide [Citalopram HBr] 40 mg PO HS 04/14/17 [History] Docusate [Colace] 100 mg PO DAILY 04/14/17 [History] Gabapentin [Neurontin] 600 mg PO HS 04/14/17 [History] Valsartan [Diovan] 80 mg PO DAILY 04/14/17 [History] Spironolactone [Aldactone] 25 mg PO DAILY 07/24/17 [History] Brimonidine 0.2% [Alphagan] 1 drop BOTH EYES AD 12/19/17 [History] Propylene Glycol/Peg 400 [Systane Ultra 0.4-0.3% Eye Drp] 1 drop OP QID [History] clonazePAM [Klonopin] 0.5 mg PO BID PRN 12/19/17 [History] Furosemide [Lasix] 40 mg PO BID 14 Days #28 12/27/17 [Rx] Metoprolol [Lopressor] 25 mg PO BID 30 Days #60 tablet 12/27/17 [Rx] predniSONE [PredniSONE] See Taper PO DAILY #12 tablet 12/27/17 [Rx] Allergies/Adverse Reactions: 3 Allergy/AdvReac Type Severity Reaction Status Date / Time hydrocodone [From Vicodin] AdvReac Nausea Verified 12/19/17 12:48 Hydromorphone [From Dilaudid] AdvReac Nausea Verified 12/19/17 12:48 - Respiratory Orders Oxygen / L per min (4 L/min) Smoking Cessation: Smoking cessation has been advised. For more information, call the [place] Tobacco Quit Line at 6-932-DATT-NOW. - Ancillary Orders May use pressure relief devices daily prn, May go on SARAH w/family/respon green party w /meds at nurse discretion PRN, May consult with Dentist, Yardmaster, Bear Keeper PRN - Mobility Orders Chair - Rehabiliation Orders Rehab Potential: Fair Rehab Orders: Evaluation for Occupational Therapy - Treatments Skin tear care topically daily PRN per policy - Diet Orders No Added Salt (KALA) CERTIFICATION: I certify that the transfer of the above named patient to an Extended Care Facility is necessary for the continuing treatment of the diagnosis listed. The above information is true and accurate reflection of patient's current condition. Confidential - Redisclosure prohibited without a patient's written consent.
[2017-12-27] MEDS: clonazePAM 0.5 MG TABLET PO PRN (20:21)
[2017-12-27] MEDS: Gabapentin 300 MG CAPSULE PO SCH (20:22)
[2017-12-27] MEDS: Insulin DETEMIR 100 UNIT/ML X5UNITS SQ SCH (20:22)
[2017-12-27] MEDS: Latanoprost 2.5 ML BOTTLE BOTH EYES SCH (20:23)
[2017-12-28] MEDS: traMADol 50 MG TABLET PO PRN ×2 (02:28→23:06)
[2017-12-28] MEDS: Ipratropium/Albuterol Neb 3 ML IH SCH ×6 (03:45→22:38)
[2017-12-28] MEDS: *HR* Heparin 5,000 UNIT/ML VIAL SQ SCH ×2 (06:50→17:16)
[2017-12-28] MEDS: Artificial Tears SOLN 15 ML BOTTLE OP SCH ×4 (08:04→20:32)
[2017-12-28] MEDS: Insulin LISPRO 300 UNITS/3 ML VIAL SQ SCH ×4 (08:07→20:31)
[2017-12-28] MEDS: Furosemide 40 MG TABLET PO SCH (09:10)
[2017-12-28] MEDS: predniSONE 10 MG TABLET PO SCH (09:11)
--- NOTE | 2017-12-28 09:47 | Internal Med Progress Note ---
<Loi Gonzales R - Last Filed: 12/28/17 17:24> Date of Encounter: 12/28/17 - Constitutional Vitals: Temp Pulse Resp BP Pulse Ox 97.8 F 69 20 122/71 97 12/28/17 11:17 12/28/17 11:17 12/28/17 11:24 12/28/17 11:17 12/28/17 11:24 Internal Medicine: Result - Labs CBC & Chem 7: 12/28/17 15:08 12/28/17 15:08 - ABG Interpretation ABG results: ABG ABG pH 7.50 pH Units (7.32-7.45) H 12/27/17 11:35 ABG pCO2 67 mmHg (35-45) H 12/27/17 11:35 ABG pO2 120 mmHg (85-104) H 12/27/17 11:35 ABG O2 Saturation 99 % (95-98) H 12/27/17 11:35 Consult Discharge Plan - Plan Instructions: Metoprolol (By mouth), Prednisone (By mouth), Heart Failure (DC) , Acute Respiratory Distress Syndrome (DC), Diabetes Mellitus Type 2 in Adults ( DC), Chronic Obstructive Pulmonary Disease (DC), Chronic Hypertension (DC), Anemia (GEN), Pneumonia (DC) Referrals: Aayush Chase MD [Primary Care Provider] - Prescriptions: Metoprolol [Lopressor] 25 mg PO BID 30 Days #60 tablet predniSONE [PredniSONE] See Taper PO DAILY #12 tablet - Attending Attestation I performed an independent interview and examine of this patient. DC is cancelled. I agree with the findings, assessment and plan of Dr. Atkinson, Internal Medicine resident (see bleow). O/ T 97.8, P 69 RR 20 BP 122/71 97% 4L AAOx3, increased work of breathing, fatigued appearing. Conversing. Skin warm and dry Lungs - dimin bs bilat, basilar crackles, no wheezing Ht - RRR Abd- soft, NT Ext - pitting edema Pt looks more sob this afternoon. Planned discharge will be cancelled. Will repeat CXR and update labs. Last CXR suggested worsening but at that time pt appeared to be clinically improved. WBC not elevated and pt is afebrile which argues against PNA. Resume Lasix but change to IV. Place on Bipap for now as pt ppears more fatigued. Will need to monitor renal fxn and serum bicarb. Susepct she has a chronic metabolic compensation to her resp acidosis leading to her chonically elevated bicarb. If continues to rise may need to add diamox. Unfortunately pt has sig restriction due to her diaphragmatic hernia and obesity hypovent syndrome. Pt needs bipap frequently. Continues on steroid taper, completed abx. Case was discussed with family via Dr. Manuel. Son Rivas [phone] Addendum: WBC elevated. CXR not sig changed but cannot r/o PNA. Will restart Abx --> Zosyn and Vancomycin, check Blood Cx. Re-consult Pulmonary for further input. <Jose Alfredo Atkinson - Last Filed: 12/28/17 18:06> Date of Encounter: 12/28/17 Time of Encounter: 09:30 - Assessment and plan (1) Acute on chronic respiratory failure with hypoxia and hypercapnia Current Visit: Yes Status: Acute Assessment and plan: - ABG pH 7.38, pCO2 96, pO2 65, HCO3 57 this afternoon, which is worse compared to ABG yesterday (pH 7.50, pCO2 67, pO2 120, HCO3 52). - Likely secondary to pneumonia (given leukocytosis today) in the setting of diastolic CHF, COPD, elevated right hemidiaphragm and OHS. - Blood culture, sputum culture and empiric antibiotics for pneumonia. - Aggressive diuresis for diastolic CHF. - Continue steroid and bronchodilators for COPD - Continue BiPAP for respiratory support. Will keep patient NPO for now to ensure patient on constant BiPAP support. - Pulmonology has been consulted and appreciate further evaluation and management. (2) Pneumonia Current Visit: Yes Status: Resolved Assessment and plan: - Chest x-ray on admission showed patchy left air space concerning of pneumonia. - Patient had finished 5-day course of levofloxacin (last dose on 12/26/17). - CXR toay found stable chest with elevated right hemidiaphragm with perihilar and right basilar opacification. - Significant leukocytosis (WBC 14.6) today along with worsening respiratory status raises the concern of pneumonia. Will obtain sputum culture & blood culture and start empiric antibiotics (IV vancomycin & Zosyn). Qualifiers: Pneumonia type: due to unspecified organism Laterality: left Lung location: unspecified part of lung Qualified Code(s): J18.9 - Pneumonia, unspecified organism (3) COPD (chronic obstructive pulmonary disease) Current Visit: No Status: Acute Assessment and plan: - Currently on prednisone taper (30 mg daily today). - Continue bronchodilator and supplemental oxygen. Qualifiers: COPD type: COPD with acute exacerbation Qualified Code(s): J44.1 - Chronic obstructive pulmonary disease with (acute) exacerbation (4) Diastolic CHF Current Visit: Yes Status: Acute Assessment and plan: - Echocardiogram on 07/18/17 showed LVEF 65% with moderate LV diastolic dysfunction. - Was on Lasix 40 mg PO BID, which is patient's home dose. But given patient's current respiratory failure and potential contribution from pulmonary edema, will switch to Lasix 40 mg IV BID. - Continue BiPAP. - Strict I/O and daily weight. Qualifiers: Heart failure chronicity: acute on chronic Qualified Code(s): I50.33 - Acute on chronic diastolic (congestive) heart failure (5) DVT prophylaxis Current Visit: Yes Status: Acute Assessment and plan: - Continue SQ heparin. - Subjective Interval history: Patient was seen and examined this morning. Patient reported breathing well and denied fever, chills, chest pain at that time. Patient was rechecked in the afternoon at around 1445 after patient's family expressed concern regarding patient's respiratory status. Patient appears to be more somnolent but still arousable to verbal stimuli. Patient states she is breathing okay But tachypnea was noted so patient was started on BiPAP. - Constitutional Vitals: Temp Pulse Resp BP Pulse Ox 97.9 F 64 20 133/63 96 12/28/17 07:22 12/28/17 07:22 12/28/17 07:40 12/28/17 07:22 12/28/17 07:40 General appearance: Present: A&O X 3, morbidly obese, no acute distress, answers questions appropriately - Head Head exam: Present: normal inspection - Eye Eye exam: Present: EOMI - Neck Neck exam general surgery: Present: normal inspection, trachea midline - Respiratory Respiratory exam: Present: wheezes - Cardiovascular Cardiovascular exam: Present: RRR, +S1, +S2 - GI/Abdominal GI/Abdominal exam: Present: normal bowel sounds, soft. Absent: tenderness - Extremities Exam Extremities exam: Present: pedal edema (BLE edema, about the same as yesterday per patient.). Absent: cyanotic - Neurological Exam Neurological exam: Present: alert, no focal deficits. Absent: facial droop, speech deficit - Skin Skin exam: Present: dry, warm Internal Medicine: Result - Labs CBC & Chem 7: 12/28/17 15:08 12/28/17 15:08 - ABG Interpretation ABG results: ABG ABG pH 7.50 pH Units (7.32-7.45) H 12/27/17 11:35 ABG pCO2 67 mmHg (35-45) H 12/27/17 11:35 ABG pO2 120 mmHg (85-104) H 12/27/17 11:35 ABG O2 Saturation 99 % (95-98) H 12/27/17 11:35
[2017-12-28 15:20] LABS: Basophils % 0.1 %; Hematocrit 28.4 % (35.3-44.9); Hemoglobin 8.6 g/dL (11.5-15.4); Immature Granulocytes % 0.9 % (0-4); Lymphocytes # 0.7 K/mcL (0.6-4.6); Lymphocytes % 4.5 %; Mean Corpuscular HGB Conc 30.3 g/dL (31.6-35.5); Mean Corpuscular Hemoglobin 29.5 pg (28.0-33.3); Mean Corpuscular Volume 97.3 fL (83.0-100.0); Mean Platelet Volume 12.4 fL (9.4-12.4); Monocytes # 0.6 K/mcL (0.0-1.3); Monocytes % 3.9 %; Neutrophils # 13.2 K/mcL (1.6-8.9); Platelet Count 144 K/mcL (140-400); Red Blood Count 2.92 M/mcL (3.82-4.97); Red Cell Distribution Width 13.6 % (11.5-14.5); Segmented Neutrophils % 90.6 %
[2017-12-28 15:55] LABS: BUN/Creatinine Ratio 34 (6-26); Blood Urea Nitrogen 39 mg/dL (8-23); Calcium 9.8 mg/dL (8.6-10.3); Chloride 85 mEq/L (98-107); Glucose 223 mg/dL (70-105); Osmolality,Calculated 300 (280-300); Sodium 137 mEq/L (136-145); eGFR For African Americans 59 (> 60); eGFR For Non-African Americans 48 (> 60)
[2017-12-28 15:56] LABS: Carbon Dioxide > 45 mEq/L (23-29)
[2017-12-28] MEDS: Furosemide 40 MG/4 ML VIAL IVP SCH (16:00)
--- NOTE | 2017-12-28 16:33 | Pulmonology Progress Note ---
Date of Encounter: 12/28/17 Time of Encounter: 16:33 Assessment and Plan (1) Acute on chronic respiratory failure with hypoxia and hypercapnia Current Visit: Yes Status: Acute Conclusion this is a 62-year-old woman with past medical history of chronic hypoxic hypercapnic respiratory failure which manifestation of underlying COPD obesity hypoventilation syndrome diastolic heart failure as well as chronic diaphragmatic hernia. Despite convalescing well after decompensated respiratory failure earlier in admission she appears to have evidence of declining respiratory status. I reviewed her arterial blood gas today which is notable for a compensated respiratory acidosis although this has significantly worsened his PCO2 now greater than 90 and no doubt this is contributing to her lethargy. I suspect that this is a manifestation of developing sepsis presumably pneumonia. Recs: 1. She will need constant noninvasive positive pressure ventilation over the next 12 hours and actually prefer that she remain nothing by mouth during this time. Currently she is using AVAPS has benefited from this in the past and I suspect this will continue to be the case. Over the next 24 hours it would be beneficial for her to wear the the noninvasive positive pressure ventilation for the majority of the time. 2. Repeat ABG in AM 3. Sepsis workup I will defer to the internal medicine service but would obtain broad-spectrum cultures including blood sputum and urine initiation of antimicrobials for hospital-acquired pneumonia is reasonable with the escalation over the next 48 hours depending on cultures. I will check lactate with history of underlying heart failure at this juncture I do not feel that aggressive volume resuscitation is necessary and likely would be deleterious. 4. Speech and swallow evaluation to be done formally as patient has complained of choking and given evidence of lethargy on examination she is at high risk for aspiration. 5. Routine chemical DVT prophylaxis for inpatients unless contraindication arises 6. Would likely benefit from gentle diuresis monitoring noted metabolic alkalosis. This will require aggressive electrolyte replacement including chloride and potassium. Along with monitoring of her renal function. 7. No clear evidence of COPD exacerbation I do not think that steroids would be beneficial Stable for continued treatment on 2NE pulmonary will follow up tomorrow (2) Sepsis Current Visit: Yes Status: Acute Qualifiers: Sepsis type: sepsis due to unspecified organism Qualified Code(s): A41.9 - Sepsis, unspecified organism (3) AIMEE (obstructive sleep apnea) Current Visit: Yes Status: Acute (4) Obesity hypoventilation syndrome Current Visit: Yes Status: Acute (5) Pneumonia Current Visit: Yes Status: Resolved Qualifiers: Pneumonia type: due to unspecified organism Laterality: left Lung location: unspecified part of lung Qualified Code(s): J18.9 - Pneumonia, unspecified organism (6) Diastolic CHF Current Visit: Yes Status: Acute Qualifiers: Heart failure chronicity: acute on chronic Qualified Code(s): I50.33 - Acute on chronic diastolic (congestive) heart failure (7) Diaphragmatic hernia Current Visit: Yes Status: Acute Qualifiers: Obstruction and gangrene presence: without obstruction or gangrene Qualified Code(s): K44.9 - Diaphragmatic hernia without obstruction or gangrene Subjective Principal diagnosis: Respiratory Decompensation, COPD exac Interval history: Patient had declining respiratory status and more obtundation or the last 24 hours pulmonary was called to reevaluate the patient which is guarded and seen during this admission. Now presenting with increased tachypnea and leukocytosis. When I examined the patient she is mildly somnolent sitting up in the chair able answer all my questions she does not off occasionally during the conversation but is not in any respiratory distress. She denies cough or abdominal pain or burning with urination Objective PUL Vital signs: Last Vital Signs Temp 97.8 F 12/28/17 11:17 Pulse 70 12/28/17 16:25 Resp 18 12/28/17 16:25 BP 142/67 12/28/17 16:25 Pulse Ox 95 12/28/17 16:25 General appearance: no acute distress, lethargic Eyes: nonicteric ENT: oropharynx moist Auscultation: left: diminished breath sounds, bilateral: rales Cardiovascular: regular rate and rhythm Gastrointestinal: normoactive bowel sounds Integumentary: normal Extremities: edema normal mental status, non-focal exam mood appropriate Results - Laboratory Findings CBC and BMP: 12/28/17 15:08 12/28/17 15:08 ABG ABG pH 7.50 pH Units (7.32-7.45) H 12/27/17 11:35 ABG pCO2 67 mmHg (35-45) H 12/27/17 11:35 ABG pO2 120 mmHg (85-104) H 12/27/17 11:35 ABG O2 Saturation 99 % (95-98) H 12/27/17 11:35 Abnormal lab findings: Abnormal lab results WBC 14.6 K/mcL (4.3-11.1) H D 12/28/17 15:08 RBC 2.92 M/mcL (3.82-4.97) L 12/28/17 15:08 Hgb 8.6 g/dL (11.5-15.4) L 12/28/17 15:08 Hct 28.4 % (35.3-44.9) L 12/28/17 15:08 MCHC 30.3 g/dL (31.6-35.5) L 12/28/17 15:08 Neutrophils # 13.2 K/mcL (1.6-8.9) H 12/28/17 15:08 Platelet Estimate Slight Decrease (Normal) L 12/26/17 03:10 Immature Plt Fraction 13.1 % (1.1-6.1) H 12/23/17 02:45 Polychromasia 1+ (Not Present) A 12/22/17 01:33 Hypochromasia Present (Not Present) A 12/26/17 03:10 Stomatocytes 1+ (Not Present) A 12/22/17 01:33 ABG pH 7.50 pH Units (7.32-7.45) H 12/27/17 11:35 ABG pCO2 67 mmHg (35-45) H 12/27/17 11:35 ABG pO2 120 mmHg (85-104) H 12/27/17 11:35 ABG HCO3 52 mEq/L (21-27) H 12/27/17 11:35 ABG Total CO2 54 mEq/L (20-26) H 12/27/17 11:35 ABG O2 Saturation 99 % (95-98) H 12/27/17 11:35 ABG Base Excess 25 mEq/L (-2 to 3) H 12/27/17 11:35 VBG pH 7.25 pH Units (7.32-7.42) L 12/19/17 12:24 VBG pCO2 92 mmHg (41-51) H* 12/19/17 12:24 VBG pO2 88 mmHg (25-50) H 12/19/17 12:24 VBG HCO3 40 mEq/L (21-27) H 12/19/17 12:24 Chloride 85 mEq/L (98-107) L 12/28/17 15:08 Carbon Dioxide > 45 mEq/L (23-29) H* 12/28/17 15:08 BUN 39 mg/dL (8-23) H 12/28/17 15:08 Est GFR ( Amer) 59 (> 60) L 12/28/17 15:08 Est GFR (Non-Af Amer) 48 (> 60) L 12/28/17 15:08 BUN/Creatinine Ratio 34 (6-26) H 12/28/17 15:08 Glucose 223 mg/dL (70-105) H 12/28/17 15:08 AST 10 Units/L (13-39) L 12/19/17 10:30 Alkaline Phosphatase 133 Units/L (34-104) H 12/19/17 10:30 B-Natriuretic Peptide 289 pg/mL (Less than 100) H 12/19/17 10:30 - Diagnostic Findings Chest x-ray: report reviewed, image reviewed - Clinical Findings Intake & Output: Intake & Output 12/28/17 12/28/17 12/28/17 07:59 15:59 23:59 Intake Total 50 / 50 120 / 120 Output Total 400 / 400 Balance -350 / -350 120 / 120 Weight 112.8 kg Consult Discharge Plan - Plan Instructions: Metoprolol (By mouth), Prednisone (By mouth), Heart Failure (DC) , Acute Respiratory Distress Syndrome (DC), Diabetes Mellitus Type 2 in Adults ( DC), Chronic Obstructive Pulmonary Disease (DC), Chronic Hypertension (DC), Anemia (GEN), Pneumonia (DC) Referrals: Aayush Chase MD [Primary Care Provider] - Prescriptions: Metoprolol [Lopressor] 25 mg PO BID 30 Days #60 tablet predniSONE [PredniSONE] See Taper PO DAILY #12 tablet
[2017-12-28 16:51] LABS: ABG Base Excess 27 mEq/L (-2 to 3); ABG HCO3 57 mEq/L (21-27); ABG Oxygen Saturation 90 % (95-98); ABG PCO2 96 mmHg (35-45); ABG PH 7.38 pH Units (7.32-7.45); ABG PO2 65 mmHg (85-104); ABG TCO2 60 mEq/L (20-26); Blood Gas Modality NIV; Blood Gas Respiration Rate 12; Blood Gas VT 450 cc
[2017-12-28] MEDS: Insulin DETEMIR 100 UNIT/ML X5UNITS SQ SCH (20:31)
[2017-12-28] MEDS: Latanoprost 2.5 ML BOTTLE BOTH EYES SCH (20:32)
[2017-12-28] MEDS: Gabapentin 300 MG CAPSULE PO SCH (20:32)
[2017-12-28 20:56] LABS: ABG Base Excess 26 mEq/L (-2 to 3); ABG HCO3 53 mEq/L (21-27); ABG Oxygen Saturation 90 % (95-98); ABG PCO2 78 mmHg (35-45); ABG PH 7.44 pH Units (7.32-7.45); ABG PO2 61 mmHg (85-104); ABG TCO2 56 mEq/L (20-26); Blood Gas Respiration Rate 14; Blood Gas VT 500 cc
[2017-12-29] MEDS: Piperacillin/Tazobactam 3.375 GM in 0.9 % Sodium Chloride Mini Bag 100 ML IVPB SCH ×3 (01:12→16:56)
[2017-12-29] MEDS: Insulin LISPRO 300 UNITS/3 ML VIAL SQ SCH ×5 (01:15→21:18)
[2017-12-29 01:53] LABS: Basophils % 0.1 %; Hematocrit 24.8 % (35.3-44.9); Hemoglobin 7.5 g/dL (11.5-15.4); Immature Granulocytes % 1.1 % (0-4); Lymphocytes # 0.7 K/mcL (0.6-4.6); Lymphocytes % 6.6 %; Mean Corpuscular HGB Conc 30.2 g/dL (31.6-35.5); Mean Corpuscular Hemoglobin 29.2 pg (28.0-33.3); Mean Corpuscular Volume 96.5 fL (83.0-100.0); Mean Platelet Volume 12.7 fL (9.4-12.4); Monocytes # 0.8 K/mcL (0.0-1.3); Monocytes % 7.8 %; Neutrophils # 8.9 K/mcL (1.6-8.9); Platelet Count 114 K/mcL (140-400); Red Blood Count 2.57 M/mcL (3.82-4.97); Red Cell Distribution Width 13.6 % (11.5-14.5); Segmented Neutrophils % 84.4 %
[2017-12-29 02:39] LABS: BUN/Creatinine Ratio 36 (6-26); Blood Urea Nitrogen 42 mg/dL (8-23); Calcium 9.3 mg/dL (8.6-10.3); Carbon Dioxide > 45 mEq/L (23-29); Chloride 85 mEq/L (98-107); Glucose 262 mg/dL (70-105); Osmolality,Calculated 310 (280-300); Potassium 4.1 mEq/L (3.5-5.1); Sodium 140 mEq/L (136-145); eGFR For African Americans 57 (> 60); eGFR For Non-African Americans 47 (> 60)
[2017-12-29] MEDS: Ipratropium/Albuterol Neb 3 ML IH SCH ×6 (03:58→23:09)
[2017-12-29 04:36] LABS: ABG Base Excess 27 mEq/L (-2 to 3); ABG HCO3 56 mEq/L (21-27); ABG Oxygen Saturation 98 % (95-98); ABG PCO2 90 mmHg (35-45); ABG PO2 112 mmHg (85-104); ABG TCO2 59 mEq/L (20-26)
[2017-12-29] MEDS: *HR* Heparin 5,000 UNIT/ML VIAL SQ SCH ×2 (06:08→16:57)
[2017-12-29] MEDS: Furosemide 40 MG/4 ML VIAL IVP SCH ×2 (08:19→16:55)
[2017-12-29] MEDS: Artificial Tears SOLN 15 ML BOTTLE OP SCH ×4 (08:19→21:18)
[2017-12-29] MEDS ORDERED: predniSONE 20 MG TABLET PO SCH (09:00)
--- NOTE | 2017-12-29 09:44 | Pulmonology Progress Note ---
Date of Encounter: 12/29/17 Time of Encounter: 09:39 Assessment and Plan (1) Acute on chronic respiratory failure with hypoxia and hypercapnia Current Visit: Yes Status: Acute Impression: 1. Acute on chronic hypoxic hypercapnic respiratory failure 2. HAP 3. Diastolic dysfunction 4. Acute on chronic metabolic alkalosis 5. Diaphragmatic hernia Recs: -Continue noninvasive ventilation a day we will switch back to BiPAP and adjust settings to be optimized prior to discharge. 20 used BiPAP most of day today and in general should be wearing between 8-12 hours definitely a time of sleep including nap. Plan on repeat ABG in the morning -Agree with broad-spectrum antimicrobials to cover for pseudomonas and MRSA the next 24 hours pending culture and sensitivity with planned de-escalation subsequently -In general net negative volume status this is a complicated underlying metabolic alkalosis socially need strict monitoring of electrolytes and repletion of magnesium/potassium -Starting Diamox 250 mg 3 times a day 1 day repeat metabolic panel in the morning -Needs further evaluation outside referral facility such as [facility]. I's woke directly with the internal medicine service regarding Impression and recommendations including the attending physician Dr. Gonzales (2) Sepsis Current Visit: Yes Status: Acute Qualifiers: Sepsis type: sepsis due to unspecified organism Qualified Code(s): A41.9 - Sepsis, unspecified organism (3) AIMEE (obstructive sleep apnea) Current Visit: Yes Status: Acute (4) Obesity hypoventilation syndrome Current Visit: Yes Status: Acute (5) Pneumonia Current Visit: Yes Status: Resolved Qualifiers: Pneumonia type: due to unspecified organism Laterality: left Lung location: unspecified part of lung Qualified Code(s): J18.9 - Pneumonia, unspecified organism (6) Diastolic CHF Current Visit: Yes Status: Acute Qualifiers: Heart failure chronicity: acute on chronic Qualified Code(s): I50.33 - Acute on chronic diastolic (congestive) heart failure (7) Diaphragmatic hernia Current Visit: Yes Status: Acute Qualifiers: Obstruction and gangrene presence: without obstruction or gangrene Qualified Code(s): K44.9 - Diaphragmatic hernia without obstruction or gangrene Subjective Principal diagnosis: Respiratory Decompensation, COPD exac Interval history: Patient has done well overnight she wore noninvasive ventilation for the majority of the evening says she feels much better today she denies complaints except that she is hungry and wants to go home Objective PUL Vital signs: Last Vital Signs Temp 98.1 F 12/29/17 07:20 Pulse 57 12/29/17 07:20 Resp 16 12/29/17 07:20 BP 129/62 12/29/17 07:20 Pulse Ox 95 12/29/17 08:27 General appearance: no acute distress Auscultation: right: diminished breath sounds, bilateral: rales Cardiovascular: regular rate and rhythm Gastrointestinal: normoactive bowel sounds Extremities: edema non-focal exam mood appropriate Results - Laboratory Findings CBC and BMP: 12/29/17 01:17 12/29/17 01:17 ABG ABG pH 7.40 pH Units (7.32-7.45) 12/29/17 04:31 ABG pCO2 90 mmHg (35-45) H* 12/29/17 04:31 ABG pO2 112 mmHg (85-104) H 12/29/17 04:31 ABG O2 Saturation 98 % (95-98) 12/29/17 04:31 Abnormal lab findings: Abnormal lab results RBC 2.57 M/mcL (3.82-4.97) L 12/29/17 01:17 Hgb 7.5 g/dL (11.5-15.4) L 12/29/17 01:17 Hct 24.8 % (35.3-44.9) L 12/29/17 01:17 MCHC 30.2 g/dL (31.6-35.5) L 12/29/17 01:17 Plt Count 114 K/mcL (140-400) L 12/29/17 01:17 MPV 12.7 fL (9.4-12.4) H 12/29/17 01:17 Platelet Estimate Slight Decrease (Normal) L 12/26/17 03:10 Immature Plt Fraction 13.1 % (1.1-6.1) H 12/23/17 02:45 Polychromasia 1+ (Not Present) A 12/22/17 01:33 Hypochromasia Present (Not Present) A 12/26/17 03:10 Stomatocytes 1+ (Not Present) A 12/22/17 01:33 ABG pCO2 90 mmHg (35-45) H* 12/29/17 04:31 ABG pO2 112 mmHg (85-104) H 12/29/17 04:31 ABG HCO3 56 mEq/L (21-27) H 12/29/17 04:31 ABG Total CO2 59 mEq/L (20-26) H 12/29/17 04:31 ABG Base Excess 27 mEq/L (-2 to 3) H 12/29/17 04:31 VBG pH 7.25 pH Units (7.32-7.42) L 12/19/17 12:24 VBG pCO2 92 mmHg (41-51) H* 12/19/17 12:24 VBG pO2 88 mmHg (25-50) H 12/19/17 12:24 VBG HCO3 40 mEq/L (21-27) H 12/19/17 12:24 Chloride 85 mEq/L (98-107) L 12/29/17 01:17 Carbon Dioxide > 45 mEq/L (23-29) H* 12/29/17 01:17 BUN 42 mg/dL (8-23) H 12/29/17 01:17 Est GFR ( Amer) 57 (> 60) L 12/29/17 01:17 Est GFR (Non-Af Amer) 47 (> 60) L 12/29/17 01:17 BUN/Creatinine Ratio 36 (6-26) H 12/29/17 01:17 Glucose 262 mg/dL (70-105) H 12/29/17 01:17 POC Glucose 101 (58-89) H 12/29/17 07:23 Calculated Osmolality 310 (280-300) H 12/29/17 01:17 AST 10 Units/L (13-39) L 12/19/17 10:30 Alkaline Phosphatase 133 Units/L (34-104) H 12/19/17 10:30 B-Natriuretic Peptide 289 pg/mL (Less than 100) H 12/19/17 10:30 - Microbiology Findings Microbiology Findings: Microbiology, Last 48 Hours 12/28/17 23:20 Sputum Culture - Final Sputum - Clinical Findings Intake & Output: Intake & Output 12/28/17 12/29/17 12/29/17 23:59 07:59 15:59 Intake Total 240 / 240 160 / 160 0 / 0 Output Total 1650 / 1650 600 / 600 600 / 600 Balance -1410 / -1410 -440 / -440 -600 / -600 Weight 111 kg Consult Discharge Plan - Plan Instructions: Metoprolol (By mouth), Prednisone (By mouth), Heart Failure (DC) , Acute Respiratory Distress Syndrome (DC), Diabetes Mellitus Type 2 in Adults ( DC), Chronic Obstructive Pulmonary Disease (DC), Chronic Hypertension (DC), Anemia (GEN), Pneumonia (DC) Referrals: Aayush Chase MD [Primary Care Provider] - Prescriptions: Metoprolol [Lopressor] 25 mg PO BID 30 Days #60 tablet predniSONE [PredniSONE] See Taper PO DAILY #12 tablet
[2017-12-29] MEDS: predniSONE 10 MG TABLET PO SCH (10:08)
[2017-12-29] MEDS: acetaZOLAMIDE 250 MG TABLET PO SCH ×3 (10:11→21:21)
--- NOTE | 2017-12-29 16:19 | Internal Med Progress Note ---
<ShiloJorge - Last Filed: 12/29/17 16:16> Date of Encounter: 12/29/17 Time of Encounter: 09:00 - Assessment and plan (1) Acute on chronic respiratory failure with hypoxia and hypercapnia Current Visit: Yes Status: Acute Assessment and plan: - AB pH 7.4, pCO2 90,pO2 112, HCO3 59. - Possibly secondary to pneumonia. White blood cell count has decreased from 14.6 to 10.6. Blood cultures are still pending. - Per pulmonology: noninvasive ventilation a day we will switch back to BiPAP and adjust settings to be optimized prior to discharge. 20 used BiPAP most of day today and in general should be wearing between 8-12 hours definitely a time of sleep including nap. Plan on repeat ABG in the morning. Starting Diamox 250 mg 3 times a day 1 day repeat metabolic panel in the morning. Needs further evaluation outside referral facility such as [facility]. (2) Pneumonia Current Visit: Yes Status: Resolved Assessment and plan: -Patient currently on Vanc and Zosyn IV day #2. Plan to de-escalate antibiotics pending blood culture and sensitivities. - Patient is afebrile, white blood cell count has decreased from 14.6 to 10.6. Patient is doing better clinically. Qualifiers: Pneumonia type: due to unspecified organism Laterality: left Lung location: unspecified part of lung Qualified Code(s): J18.9 - Pneumonia, unspecified organism (3) COPD exacerbation Current Visit: Yes Status: Acute Assessment and plan: - Currently on prednisone taper (20 mg daily today). - Continue bronchodilator and supplemental oxygen. (4) Diastolic CHF Current Visit: Yes Status: Acute Assessment and plan: Patient splitting good output. Currently on 40 mg Lasix IV twice a day. - Plan to switch to oral Lasix tomorrow. - Continue BiPAP. - Strict I/O and daily weight. Qualifiers: Heart failure chronicity: acute on chronic Qualified Code(s): I50.33 - Acute on chronic diastolic (congestive) heart failure (5) MARIFER (acute kidney injury) Current Visit: Yes Status: Acute Assessment and plan: Creatinine level stable at 1.17. (6) Anemia Current Visit: Yes Status: Chronic Assessment and plan: Hemoglobin level dropped from 8.5 to 7.5. - Plan to transfuse if hemoglobin level drops below 7. Qualifiers: Anemia type: unspecified type Qualified Code(s): D64.9 - Anemia, unspecified (7) DVT prophylaxis Current Visit: Yes Status: Acute Assessment and plan: Heparin 5000 U SQ Q12hr. - Subjective Interval history: Ms. Cox is a 62 year old female with a PMH of CHF, COPD, DM, fibromyalgia, HLD, nd HTN that presents for dizziness. When seen today patient says that she feels overall better today. She is able to breathe better. She denies any shortness of breath, fever, chills, nausea, vomiting, chest pain, or lightheadedness. She says that her cough is improved since yesterday. Still producing minor productive cough. Patient's son requested yesterday to transfer patient to [facility]. Spoke to patient today and she refuses to go to [facility] and would like to stay here. - Constitutional Vitals: Temp Pulse Resp BP Pulse Ox 97.6 F 57 18 124/57 98 12/29/17 15:56 12/29/17 15:56 12/29/17 15:56 12/29/17 15:56 12/29/17 15:56 General appearance: Present: A&O X 3, morbidly obese, no acute distress, answers questions appropriately - Respiratory Respiratory exam: Present: CTAB. Absent: accessory muscle use, rales, rhonchi, wheezes - Cardiovascular Cardiovascular exam: Present: RRR, +S1, +S2. Absent: diastolic murmur, gallop, rubs, systolic murmur - GI/Abdominal GI/Abdominal exam: Present: normal bowel sounds, soft, no peritoneal signs. Absent: distended, tenderness - Extremities Exam Extremities exam: Present: full ROM, normal capillary refill, pedal edema (+1 bilateral pitting edema), warm, radial pulses palpable and symmetrical. Absent : calf tenderness, cyanotic, tenderness Internal Medicine: Result - Labs CBC & Chem 7: 12/29/17 01:17 12/29/17 01:17 Labs: Short CBC 12/29/17 Range/Units 01:17 WBC 10.6 (4.3-11.1) K/mcL Hgb 7.5 L (11.5-15.4) g/dL Hct 24.8 L (35.3-44.9) % Plt Count 114 L (140-400) K/mcL Neutrophils # 8.9 (1.6-8.9) K/mcL BMP 12/29/17 01:17 Sodium 140 Potassium 4.1 Chloride 85 L Carbon Dioxide > 45 H* BUN 42 H Creatinine 1.17 Glucose 262 H Calcium 9.3 - ABG Interpretation ABG results: ABG ABG pH 7.40 pH Units (7.32-7.45) 12/29/17 04:31 ABG pCO2 90 mmHg (35-45) H* 12/29/17 04:31 ABG pO2 112 mmHg (85-104) H 12/29/17 04:31 ABG O2 Saturation 98 % (95-98) 12/29/17 04:31 Consult Discharge Plan - Plan Instructions: Metoprolol (By mouth), Prednisone (By mouth), Heart Failure (DC) , Acute Respiratory Distress Syndrome (DC), Diabetes Mellitus Type 2 in Adults ( DC), Chronic Obstructive Pulmonary Disease (DC), Chronic Hypertension (DC), Anemia (GEN), Pneumonia (DC) Referrals: Aayush Chase MD [Primary Care Provider] - Prescriptions: Metoprolol [Lopressor] 25 mg PO BID 30 Days #60 tablet predniSONE [PredniSONE] See Taper PO DAILY #12 tablet <Loi Gonzales R - Last Filed: 12/29/17 16:58> Date of Encounter: 12/29/17 - Constitutional Vitals: Temp Pulse Resp BP Pulse Ox 97.6 F 57 18 124/57 98 12/29/17 15:56 12/29/17 15:56 12/29/17 15:56 12/29/17 15:56 12/29/17 15:56 Internal Medicine: Result - Labs CBC & Chem 7: 12/29/17 01:17 12/29/17 01:17 Labs: Short CBC 12/29/17 Range/Units 01:17 WBC 10.6 (4.3-11.1) K/mcL Hgb 7.5 L (11.5-15.4) g/dL Hct 24.8 L (35.3-44.9) % Plt Count 114 L (140-400) K/mcL Neutrophils # 8.9 (1.6-8.9) K/mcL BMP 12/29/17 01:17 Sodium 140 Potassium 4.1 Chloride 85 L Carbon Dioxide > 45 H* BUN 42 H Creatinine 1.17 Glucose 262 H Calcium 9.3 - ABG Interpretation ABG results: ABG ABG pH 7.40 pH Units (7.32-7.45) 12/29/17 04:31 ABG pCO2 90 mmHg (35-45) H* 12/29/17 04:31 ABG pO2 112 mmHg (85-104) H 12/29/17 04:31 ABG O2 Saturation 98 % (95-98) 12/29/17 04:31 - Attending Attestation I performed an independent interview and examine this patient. I agree with the findings and, assessment and plan of , internal medicine international representative. I also discussed the case with pulmonary medicine today. Patient is improved. She essentially needs BiPAP whenever she is resting. She is currently on antibiotics for suspected healthcare associated pneumonia although her white count is normalized. We are waiting for the culture data. She is also diuresed with IV Lasix and is significantly improved. We will continue to monitor. Patient ultimately will need referral for consideration of surgery to correct her diaphragmatic hernia as this is causing significant impairment in her ability to ventilate. All else as outlined above.
[2017-12-29] MEDS: Gabapentin 300 MG CAPSULE PO SCH (21:17)
[2017-12-29] MEDS: Insulin DETEMIR 100 UNIT/ML X5UNITS SQ SCH (21:18)
[2017-12-29] MEDS: Latanoprost 2.5 ML BOTTLE BOTH EYES SCH (21:19)
[2017-12-29] MEDS: traMADol 50 MG TABLET PO PRN (22:05)
[2017-12-30] MEDS: Piperacillin/Tazobactam 3.375 GM in 0.9 % Sodium Chloride Mini Bag 100 ML IVPB SCH ×2 (00:55→08:04)
[2017-12-30] MEDS: Ipratropium/Albuterol Neb 3 ML IH SCH ×5 (04:54→20:34)
[2017-12-30 04:59] LABS: Hematocrit 25.8 % (35.3-44.9); Hemoglobin 7.6 g/dL (11.5-15.4); Immature Granulocytes % 0.9 % (0-4); Lymphocytes # 0.7 K/mcL (0.6-4.6); Lymphocytes % 7.3 %; Mean Corpuscular HGB Conc 29.5 g/dL (31.6-35.5); Mean Corpuscular Volume 98.5 fL (83.0-100.0); Mean Platelet Volume 13.2 fL (9.4-12.4); Monocytes # 0.8 K/mcL (0.0-1.3); Monocytes % 8.2 %; Neutrophils # 8.3 K/mcL (1.6-8.9); Platelet Count 112 K/mcL (140-400); Red Blood Count 2.62 M/mcL (3.82-4.97); Red Cell Distribution Width 13.6 % (11.5-14.5); Segmented Neutrophils % 83.6 %
[2017-12-30 05:02] LABS: ABG Base Excess 22 mEq/L (-2 to 3); ABG HCO3 51 mEq/L (21-27); ABG Oxygen Saturation 96 % (95-98); ABG PCO2 87 mmHg (35-45); ABG PH 7.38 pH Units (7.32-7.45); ABG PO2 93 mmHg (85-104); ABG TCO2 54 mEq/L (20-26); Blood Gas FiO2 3.5 (1-15=lpm or21-100=%)
[2017-12-30] MEDS: *HR* Heparin 5,000 UNIT/ML VIAL SQ SCH ×2 (06:01→17:27)
[2017-12-30 06:34] LABS: BUN/Creatinine Ratio 27 (6-26); Blood Urea Nitrogen 44 mg/dL (8-23); Calcium 9.2 mg/dL (8.6-10.3); Carbon Dioxide > 45 mEq/L (23-29); Chloride 86 mEq/L (98-107); Glucose 317 mg/dL (70-105); Osmolality,Calculated 309 (280-300); Potassium 4.3 mEq/L (3.5-5.1); Sodium 138 mEq/L (136-145); eGFR For African Americans 38 (> 60); eGFR For Non-African Americans 32 (> 60)
[2017-12-30] MEDS: Insulin LISPRO 300 UNITS/3 ML VIAL SQ SCH ×4 (08:02→20:56)
[2017-12-30] MEDS: Furosemide 40 MG/4 ML VIAL IVP SCH (08:05)
[2017-12-30] MEDS ORDERED: predniSONE 20 MG TABLET PO SCH (09:00)
[2017-12-30] MEDS: Artificial Tears SOLN 15 ML BOTTLE OP SCH ×4 (10:06→20:55)
[2017-12-30] MEDS: predniSONE 20 MG TABLET PO SCH (10:08)
[2017-12-30] MEDS: levoFLOXacin 750 MG TABLET PO SCH (10:09)
--- NOTE | 2017-12-30 14:57 | Internal Med Progress Note ---
<ShiloJorge - Last Filed: 12/30/17 14:53> Date of Encounter: 12/30/17 Time of Encounter: 09:40 - Assessment and plan (1) Acute on chronic respiratory failure with hypoxia and hypercapnia Current Visit: Yes Status: Acute Assessment and plan: - AB pH 7.38 pCO2 87 pO2 93 HCO3 51 - Possibly secondary to pneumonia. White blood cell count has decreased from 10.6 to 9.9. Blood cultures are negative.. - Diamox 250 mg 3 times a day 1 day repeat metabolic panel in the morning. Needs further evaluation outside referral facility such as [facility]. - Bipap - Discontinued vanc and Zosyn. Switched to Levaquin by mouth. (2) Pneumonia Current Visit: Yes Status: Resolved Assessment and plan: -Day 3 of antibiotics. Discontinue vanc and Zosyn. Patient started on by mouth Levaquin. Plan for 5 more days Levaquin. - Patient is afebrile, white blood cell count has decreased from 10.6 to 9.9 Patient is doing better clinically. Qualifiers: Pneumonia type: due to unspecified organism Laterality: left Lung location: unspecified part of lung Qualified Code(s): J18.9 - Pneumonia, unspecified organism (3) COPD exacerbation Current Visit: Yes Status: Acute Assessment and plan: - Currently on prednisone taper (20 mg daily today). - Continue bronchodilator and supplemental oxygen. (4) Diastolic CHF Current Visit: Yes Status: Acute Assessment and plan: Patient showing good output. - Discontinued Lasix due to increase in creatinine from 1.17 to 1.64. - Continue BiPAP. - Strict I/O and daily weight. Qualifiers: Heart failure chronicity: acute on chronic Qualified Code(s): I50.33 - Acute on chronic diastolic (congestive) heart failure (5) MARIFER (acute kidney injury) Current Visit: Yes Status: Acute Assessment and plan: Creatinine level increased from 1.17 to 1.64. - Lasix on hold. - Discontinued vancomycin. (6) Anemia Current Visit: Yes Status: Chronic Assessment and plan: Hemoglobin level stable from 7.5 to 7.6. - Plan to transfuse if hemoglobin level drops below 7. Qualifiers: Anemia type: unspecified type Qualified Code(s): D64.9 - Anemia, unspecified (7) DVT prophylaxis Current Visit: Yes Status: Acute Assessment and plan: Heparin 5000 U SQ Q12hr. - Subjective Interval history: Ms. Cox is a 62 year old female with a PMH of CHF, COPD, DM, fibromyalgia, HLD, nd HTN that presents for dizziness. When seen today patient says that she feels overall better today. She is able to breathe better. She denies any shortness of breath, fever, chills, nausea, vomiting, chest pain, or lightheadedness. She says that her cough is improved since yesterday. Still producing minor productive cough. - Constitutional Vitals: Temp Pulse Resp BP Pulse Ox 97.7 F 56 27 103/51 94 12/30/17 11:10 12/30/17 11:10 12/30/17 11:10 12/30/17 11:10 12/30/17 11:10 General appearance: Present: A&O X 3, morbidly obese, no acute distress, answers questions appropriately - Respiratory Respiratory exam: Present: CTAB. Absent: accessory muscle use, rales, rhonchi, wheezes - Cardiovascular Cardiovascular exam: Present: RRR, +S1, +S2. Absent: diastolic murmur, gallop, rubs, systolic murmur - GI/Abdominal GI/Abdominal exam: Present: normal bowel sounds, soft, no peritoneal signs. Absent: distended, tenderness - Extremities Exam Extremities exam: Present: full ROM, normal capillary refill, pedal edema (+1 bilateral pitting edema), warm, radial pulses palpable and symmetrical. Absent : calf tenderness, cyanotic, tenderness Internal Medicine: Result - Labs CBC & Chem 7: 12/30/17 03:59 12/30/17 03:59 Labs: Short CBC 12/30/17 Range/Units 03:59 WBC 9.9 (4.3-11.1) K/mcL Hgb 7.6 L (11.5-15.4) g/dL Hct 25.8 L (35.3-44.9) % Plt Count 112 L (140-400) K/mcL Neutrophils # 8.3 (1.6-8.9) K/mcL BMP 12/30/17 03:59 Sodium 138 Potassium 4.3 Chloride 86 L Carbon Dioxide > 45 H* BUN 44 H Creatinine 1.64 H Glucose 317 H Calcium 9.2 - ABG Interpretation ABG results: ABG ABG pH 7.38 pH Units (7.32-7.45) 12/30/17 04:56 ABG pCO2 87 mmHg (35-45) H* 12/30/17 04:56 ABG pO2 93 mmHg (85-104) 12/30/17 04:56 ABG O2 Saturation 96 % (95-98) 12/30/17 04:56 Consult Discharge Plan - Plan Instructions: Metoprolol (By mouth), Prednisone (By mouth), Heart Failure (DC) , Acute Respiratory Distress Syndrome (DC), Diabetes Mellitus Type 2 in Adults ( DC), Chronic Obstructive Pulmonary Disease (DC), Chronic Hypertension (DC), Anemia (GEN), Pneumonia (DC) Referrals: Aayush Chase MD [Primary Care Provider] - Prescriptions: Metoprolol [Lopressor] 25 mg PO BID 30 Days #60 tablet predniSONE [PredniSONE] See Taper PO DAILY #12 tablet <Loi Gonzales R - Last Filed: 12/30/17 15:07> Date of Encounter: 12/30/17 - Constitutional Vitals: Temp Pulse Resp BP Pulse Ox 97.7 F 56 27 103/51 94 12/30/17 11:10 12/30/17 11:10 12/30/17 11:10 12/30/17 11:10 12/30/17 11:10 Internal Medicine: Result - Labs CBC & Chem 7: 12/30/17 03:59 12/30/17 03:59 Labs: Short CBC 12/30/17 Range/Units 03:59 WBC 9.9 (4.3-11.1) K/mcL Hgb 7.6 L (11.5-15.4) g/dL Hct 25.8 L (35.3-44.9) % Plt Count 112 L (140-400) K/mcL Neutrophils # 8.3 (1.6-8.9) K/mcL BMP 12/30/17 03:59 Sodium 138 Potassium 4.3 Chloride 86 L Carbon Dioxide > 45 H* BUN 44 H Creatinine 1.64 H Glucose 317 H Calcium 9.2 - ABG Interpretation ABG results: ABG ABG pH 7.38 pH Units (7.32-7.45) 12/30/17 04:56 ABG pCO2 87 mmHg (35-45) H* 12/30/17 04:56 ABG pO2 93 mmHg (85-104) 12/30/17 04:56 ABG O2 Saturation 96 % (95-98) 12/30/17 04:56 - Attending Attestation I performede an independent interview and exam of this pt. I agree with the findings, assessment and plan of , internal medicine cad intern. Patient is improved. Lasix is held today due to slight bump in creatinine. She has been wearing her BiPAP and her numbers appear to be better. Clinically she is more alert. We did de-escalate antibiotics to Levaquin today. Anticipate proximally 5 days total antibiotics. Her white blood cell count has normalized. She is afebrile. Patient will likely be ready for transfer tomorrow if he can be arranged. All else as outlined.
[2017-12-30] MEDS: Acetaminophen 325 MG TABLET PO PRN (17:30)
[2017-12-30] MEDS ORDERED: Aminoglycoside Consult 1 EACH MC ONE (19:59)
[2017-12-30] MEDS: clonazePAM 0.5 MG TABLET PO PRN (20:56)
[2017-12-30] MEDS: Latanoprost 2.5 ML BOTTLE BOTH EYES SCH (20:56)
[2017-12-30] MEDS: traMADol 50 MG TABLET PO PRN (20:57)
[2017-12-30] MEDS: Insulin DETEMIR 100 UNIT/ML X5UNITS SQ SCH (20:57)
[2017-12-30] MEDS: Gabapentin 300 MG CAPSULE PO SCH (20:57)
[2017-12-31] MEDS: Ipratropium/Albuterol Neb 3 ML IH SCH ×6 (01:16→20:29)
[2017-12-31 04:06] LABS: Hemoglobin 7.9 g/dL (11.5-15.4); Immature Granulocytes % 1.2 % (0-4); Lymphocytes # 1.1 K/mcL (0.6-4.6); Lymphocytes % 10.6 %; Mean Corpuscular HGB Conc 29.3 g/dL (31.6-35.5); Mean Corpuscular Hemoglobin 28.8 pg (28.0-33.3); Mean Corpuscular Volume 98.5 fL (83.0-100.0); Mean Platelet Volume 12.8 fL (9.4-12.4); Monocytes # 0.9 K/mcL (0.0-1.3); Neutrophils # 8.2 K/mcL (1.6-8.9); Platelet Count 112 K/mcL (140-400); Red Blood Count 2.74 M/mcL (3.82-4.97); Red Cell Distribution Width 13.8 % (11.5-14.5); Segmented Neutrophils % 79.2 %
[2017-12-31 04:51] LABS: Calcium 9.1 mg/dL (8.6-10.3); Potassium 4.2 mEq/L (3.5-5.1)
[2017-12-31] MEDS: *HR* Heparin 5,000 UNIT/ML VIAL SQ SCH (06:16)
[2017-12-31] MEDS: Insulin LISPRO 300 UNITS/3 ML VIAL SQ SCH ×2 (08:42→12:58)
[2017-12-31] MEDS: Artificial Tears SOLN 15 ML BOTTLE OP SCH ×2 (08:44→12:58)
[2017-12-31] MEDS: levoFLOXacin 750 MG TABLET PO SCH (08:45)
[2017-12-31] MEDS: predniSONE 20 MG TABLET PO SCH (08:45)
--- NOTE | 2017-12-31 10:01 | Discharge Summary ---
<ShiloJorge - Last Filed: 12/31/17 09:52> Orders not resulted at time of discharge: Pending orders 12/28/17 16:26 Culture,Blood,Additional [BC] Stat Date of Encounter: 12/31/17 Time of Encounter: 09:20 - Discharge Diagnosis (1) Acute on chronic respiratory failure with hypoxia and hypercapnia Priority: Primary Status: Acute (2) Pneumonia Priority: Primary Status: Acute Qualifiers: Pneumonia type: due to unspecified organism Laterality: left Lung location: unspecified part of lung Qualified Code(s): J18.9 - Pneumonia, unspecified organism (3) COPD exacerbation Priority: Primary Status: Acute (4) Diastolic CHF Priority: Primary Status: Acute Qualifiers: Heart failure chronicity: acute on chronic Qualified Code(s): I50.33 - Acute on chronic diastolic (congestive) heart failure (5) MARIFER (acute kidney injury) Priority: Primary Status: Acute (6) Anemia Priority: Primary Status: Chronic Qualifiers: Anemia type: unspecified type Qualified Code(s): D64.9 - Anemia, unspecified (7) DVT prophylaxis Priority: Primary Status: Acute Hospital course: Ms. Cox is a 62 year old female with a PMH of CHF, COPD, diabetes mellitus, fibromyalgia, hyperlipidemia, and hypertension that presented for shortness of breath and dizziness. She was admitted on 12/19/2017 for dizziness secondary to dehydration, pneumonia, and COPD. Patient was started on Levaquin but we ended up discontinuing it due to clinical assessment. Two days later patient had a rapid response for mild cyanosis and low pulse ox readings. She was subsequently diagnosed with CHF and possible PNA and started on Lasix and vanc and zosyn. Last echocardiogram was 65% on 07/28/17. Blood culture came back negative. Discontinued vanc and Zosyn and switched to Levaquin by mouth. Patient was diuresed on Lasix IV until creatinine level slightly increased. Lasix was put on hold and currently level improved the next day. ABG level seemed to improve slightly today. Serum bicarbonate decreased from greater than 45 to 43. Patient on prednisone tapering schedule, currently on 20 mg of prednisone day 3 of 3. When seen today patient denies any shortness of breath, fever, chills, nausea, vomiting, abdominal pain, orthopnea, hematuria, or hematochezia. She still has a productive cough but says that it continues to improve with each day. Patient has been afebrile with good oxygen saturation and normotensive blood pressure. Clinically she seems to be doing a lot better. [facility] be [facility]. She will have to wear a BiPAP at night every day. She will finish her prednisone tapering schedule with 3 more days 10 mg each day. She will need to take Levaquin by mouth for 4 more days for a total of 5 days. Patient will also benefit from metoprolol 25 mg by mouth twice a day for her CHF. Patient will need to follow- up with PCP within one week. - Time Spent with Patient Total time spent providing and/or coordinating discharge services: Less than 30 minutes - Discharge Medications Prescriptions: levoFLOXacin [Levaquin] 750 mg PO DAILY #4 tablet Metoprolol [Lopressor] 25 mg PO BID 30 Days #60 tablet predniSONE [PredniSONE] 10 mg PO DAILY #3 tablet Home Medications: Esomeprazole Magnesium [Nexium] 40 mg PO DAILY 04/06/16 [History] Glimepiride [Amaryl] 4 mg PO QAM 04/06/16 [History] Latanoprost [Xalatan] 1 drop BOTH EYES HS 04/06/16 [History] Simvastatin [Zocor] 40 mg PO HS 04/06/16 [History] SitaGLIPtin [Januvia] 100 mg PO DAILY 04/06/16 [History] Albuterol Sulfate [Albuterol Inhaler] 2 puff IH Q4H PRN 04/14/17 [History] Citalopram Hydrobromide [Citalopram HBr] 40 mg PO HS 04/14/17 [History] Docusate [Colace] 100 mg PO DAILY 04/14/17 [History] Gabapentin [Neurontin] 600 mg PO HS 04/14/17 [History] Valsartan [Diovan] 80 mg PO DAILY 04/14/17 [History] Spironolactone [Aldactone] 25 mg PO DAILY 07/24/17 [History] Brimonidine 0.2% [Alphagan] 1 drop BOTH EYES AD 12/19/17 [History] Propylene Glycol/Peg 400 [Systane Ultra 0.4-0.3% Eye Drp] 1 drop OP QID [History] clonazePAM [Klonopin] 0.5 mg PO BID PRN 12/19/17 [History] Furosemide [Lasix] 40 mg PO BID 14 Days #28 12/27/17 [Rx] Metoprolol [Lopressor] 25 mg PO BID 30 Days #60 tablet 12/27/17 [Rx] levoFLOXacin [Levaquin] 750 mg PO DAILY #4 tablet 12/31/17 [Rx] predniSONE [PredniSONE] 10 mg PO DAILY #3 tablet 12/31/17 [Rx] Allergies/Adverse Reactions: 3 Allergy/AdvReac Type Severity Reaction Status Date / Time hydrocodone [From Vicodin] AdvReac Nausea Verified 12/19/17 12:48 Hydromorphone [From Dilaudid] AdvReac Nausea Verified 12/19/17 12:48 Date of admission: 12/21/17 11:13 Primary care physician: Aayush Chase MD Consults: 12/21/17 13:47 Consult to Pulmonology [CONS] Stat Consulting Provider: [facility] Reason for Consult: Acute on chronic resp acidosis, hypoxia, hypercapnea, not responding to BiPAP Call Completed: Yes 12/24/17 08:54 Consult to Clinical Biochemist [CONS] Routine Reason for SW Consult: placement 12/28/17 16:06 Consult to Pulmonology [CONS] Routine Consulting Provider: [facility] Reason for Consult: Worsening respiratory status Call Completed: Yes Discharging clinician: Jorge Lao Anticipated date of discharge: 12/31/17 - Constitutional Vitals: Temp Pulse Resp BP Pulse Ox 97.3 F L 62 18 107/62 100 12/31/17 07:05 12/31/17 08:42 12/31/17 07:05 12/31/17 08:42 12/31/17 07:05 General appearance: Present: A&O X 3, morbidly obese, no acute distress, answers questions appropriately - Respiratory Respiratory exam: Present: CTAB. Absent: accessory muscle use, rales, rhonchi, wheezes - Cardiovascular Cardiovascular exam: Present: RRR, +S1, +S2. Absent: diastolic murmur, gallop, rubs, systolic murmur - GI/Abdominal GI/Abdominal exam: Present: normal bowel sounds, soft, no peritoneal signs. Absent: distended, tenderness - Extremities Exam Extremities exam: Present: full ROM, normal capillary refill, pedal edema (+1 pitting edema bilaterally), warm, radial pulses palpable and symmetrical. Absent: calf tenderness, cyanotic, tenderness - Patient Status Disposition: Transfer SNF Condition: Fair Overall status at discharge: patient is progressing back to baseline - Discharge Instructions Instructions: Metoprolol (By mouth), Prednisone (By mouth), Heart Failure (DC) , Acute Respiratory Distress Syndrome (DC), Diabetes Mellitus Type 2 in Adults ( DC), Chronic Obstructive Pulmonary Disease (DC), Chronic Hypertension (DC), Anemia (GEN), Pneumonia (DC) Follow Up With: Aayush Chase MD [Primary Care Provider] - - Diet and Activity Activity: as per physical therapy Diet: low salt diet <Loi Gonzales - Last Filed: 12/31/17 13:43> Orders not resulted at time of discharge: Pending orders 12/28/17 16:26 Culture,Blood,Additional [BC] Stat Date of Encounter: 12/31/17 Hospital course: Ms. Cox is a 62 year old female - Time Spent with Patient Total time spent providing and/or coordinating discharge services: Date of admission: 12/21/17 11:13 Primary care physician: Aayush Chase MD Consults: 12/21/17 13:47 Consult to Pulmonology [CONS] Stat Consulting Provider: [facility] Reason for Consult: Acute on chronic resp acidosis, hypoxia, hypercapnea, not responding to BiPAP Call Completed: Yes 12/24/17 08:54 Consult to Clinical Biochemist [CONS] Routine Reason for SW Consult: placement 12/28/17 16:06 Consult to Pulmonology [CONS] Routine Consulting Provider: [facility] Reason for Consult: Worsening respiratory status Call Completed: Yes - Constitutional Vitals: Temp Pulse Resp BP Pulse Ox 97.6 F 61 18 108/60 99 12/31/17 10:16 12/31/17 10:16 12/31/17 11:32 12/31/17 10:16 12/31/17 11:32 - Attending Attestation I performed an independent interview and exam of this pt. aI agree with the findings, assessment and plan of Dr. Lao, internal medicine grad intern. Patient is medically stable for discharge. She will continue on BiPAP with any periods of rest or at bedtime. Patient will ultimately need follow-up with surgical subspecialty for consideration of repair of her diaphragmatic hernia. She will complete a total of 5 days of Levaquin for which he is now day 3 for suspected pneumonia. She otherwise has done well. A total of 47 minutes was spent on discharge and coordination of care.
[2017-12-31 19:20] VITALS: BP 109/87
[2017-12-31] MEDS: Gabapentin 300 MG CAPSULE PO SCH (19:53)
[2018-01-01] MEDS ORDERED: predniSONE 10 MG TABLET PO SCH (09:00)
[2018-01-02] MEDS ORDERED: predniSONE 10 MG TABLET PO SCH ×2 (09:00)
== END 2017-12-31 20:00 | DRG 208 ==
LOC: 3BNU 09:51 → EMEROO 09:51 → SUATTDRO 13:37 → 3BNU 14:20 → ICNU 12-21 10:14 → 2NENU 12-23 22:34
PROVIDERS: ADMIT Registered Nurse; ATTEND Internal Medicine

== ENCOUNTER 2018-01-08 13:45 | Inpatient (IN) ==
--- NOTE | 2018-01-08 14:27 | Emergency Department Note ---
Disposition Clinical Impression: Acute on chronic respiratory failure with hypoxia and hypercapnia, Weakness, Septic shock Renal failure (ARF), acute on chronic Qualifiers: Acute renal failure type: unspecified Chronic kidney disease stage: unspecified stage Qualified Code(s): N17.9 - Acute kidney failure, unspecified Urinary tract infection Qualifiers: Urinary tract infection type: acute cystitis Hematuria presence: without hematuria Qualified Code(s): N30.00 - Acute cystitis without hematuria Disposition: Admitted As Inpatient Condition: Critical Referrals: Aayush Chase MD [Primary Care Provider] - Forms: ED Satisfaction Letter Time of Disposition: 18:52 General Adult HPI - General Chief complaint: ED Shortness of Breath/Dyspnea Stated complaint: lethargic Time Seen by Provider: 01/08/18 13:51 Source: EMS Limitations: altered mental status Nursing Notes Reviewed: Yes Vital Signs Reviewed: Yes - History of Present Illness HPI Narrative: [facility] Was recently discharged from here for hypercapnic respiratory problems. She was found to be hypoglycemic by EMS. D10 was administered. Patient subsequently was more arousable. BiPAP at the prison however oxygen saturation was low. EMS placed her on a nonrebreather. This was patient's oxygen saturation. She is now arousable painful stimuli. Pain Scale: 0 - Related Data Home Medications Medication Instructions Recorded Confirmed Esomeprazole Magnesium [Nexium] 40 mg PO DAILY 04/06/16 01/08/18 Glimepiride [Amaryl] 4 mg PO [facility] 04/06/16 01/08/18 Latanoprost [Xalatan] 1 drop BOTH EYES 04/06/16 01/08/18 Simvastatin [Zocor] 40 mg PO 04/06/16 01/08/18 SitaGLIPtin [Januvia] 100 mg PO DAILY 04/06/16 01/08/18 Albuterol Sulfate [Albuterol 2 puff IH Q4H PRN 04/14/17 01/08/18 Inhaler] Citalopram Hydrobromide 40 mg PO 04/14/17 01/08/18 [Citalopram HBr] Docusate [Colace] 100 mg PO DAILY 04/14/17 01/08/18 Gabapentin [Neurontin] 600 mg PO 04/14/17 01/08/18 Valsartan [Diovan] 80 mg PO DAILY 04/14/17 01/08/18 Spironolactone [Aldactone] 25 mg PO DAILY 07/24/17 01/08/18 Brimonidine 0.2% [Alphagan] 1 drop BOTH EYES AD 12/19/17 01/08/18 Propylene Glycol/Peg 400 [Systane 1 drop OP QID 12/19/17 01/08/18 Ultra 0.4-0.3% Eye Drp] clonazePAM [Klonopin] 0.5 mg PO BID PRN 12/19/17 01/08/18 Fluconazole [Diflucan] 100 mg PO DAILY 01/08/18 01/08/18 Previous Rx's Medication Instructions Recorded Furosemide [Lasix] 40 mg PO BID 14 Days #28 12/27/17 Allergies Allergy/AdvReac Type Severity Reaction Status Date / Time hydrocodone [From Vicodin] AdvReac Nausea Verified 12/19/17 12:48 Hydromorphone [From Dilaudid] AdvReac Nausea Verified 12/19/17 12:48 Limitations: ROS unobtainable due to patients medical condition Past Medical History - Past Medical History Attestation: Yes The following information was validated with the patient. Source: patient Medical history: Reports: CHF, COPD, diabetes, fibromyalgia, hyperlipidemia, hypertension Surgical history: Reports: other Psychiatric history: Reports: anxiety, depression - Social History Smoking Status: Never smoker Smokeless Tobacco Status: No Alcohol use: Reports: none Drug use: Reports: none Physical Exam - General Limitations: no limitations, altered mental status General appearance: alert, lethargic - Head Head exam: atraumatic, normocephalic, normal inspection - Eye Eye exam: Present: normal appearance, PERRL, EOMI. Absent: scleral icterus - ENT ENT exam: normal exam, normal oropharynx, mucous membranes moist - Neck Neck exam: Present: normal inspection, trachea midline - Chest Chest inspection: Present: normal inspection, symmetric chest wall rise - Respiratory Respiratory exam: Present: normal lung sounds bilaterally, accessory muscle use (Subcostal retractions). Absent: respiratory distress - Cardiovascular Cardiovascular exam: Present: regular rate, normal rhythm, normal heart sounds - Abdominal Exam Abdominal exam: Present: soft, Non-Tender. Absent: tenderness, distention, rigidity, organomegaly - Extremities Exam Extremities exam: Present: normal inspection, full ROM, normal capillary refill. Absent: tenderness, pedal edema - Back Exam Back exam: Present: normal inspection, full ROM. Absent: tenderness - Neurological Exam Neurological exam: Present: other (Altered mental status is arousable to painful stimuli) - Psychiatric Psychiatric exam: Present: normal affect, normal mood - Skin Skin exam: Present: warm, dry, intact, normal color. Absent: rash, cyanosis, diaphoresis, erythema Course Course Narrative: Female patient presenting to the emergency department by EMS. They were called for decreased mentation. They state that her glucose was in the 50s initially. They gave her some D10 which increase her blood sugar while here. SHis mentating however sluggish. Her lung sounds are diminished throughout. She is on BiPAP at this time. He - Reevaluation(s) Reevaluation #1: Was alerted by nursing staff for periods of apnea. On entrance to the room patient is having a respiratory rate around 8. She is sternal rub and is aroused however she is not alert. She does not open her eyes to me. She does increased respiratory rates around 14. She is on BiPAP at this time. We have done an ABG and her CO2 is above 80. She is also found to be acidotic. She does have a UTI. With hypotension. She is to receive 3 L of fluid we will start her on antibiotics for septic shock. We will admit patient to the hospital. Time: 15:20 Reevaluation #2: I had an extensive conversation with patient's 2 sons. Patient has a signed by her and Dr. Chase DNR CC on her chart. Signed on January 06 of this year. The patient's sons allow that the patient was not in her right mind at that time and that they would like to we have disorder. I discussed this extensively with the family. They state that they think is her wishes. They want her to be a full code. Patient is mentating better at this time. She is arousable. We will leave patient on BiPAP. However her blood pressure is still labile. We will place a central line in place her on vasopressors. Time: 17:06 Vital Signs Temperature 98.7 F 01/08/18 13:49 Pulse Rate 77 01/08/18 13:49 Respiratory Rate 26 01/08/18 13:49 Blood Pressure 80/44 01/08/18 13:49 O2 Sat by Pulse Oximetry 100 01/08/18 13:49 Temperature 98.7 F 01/08/18 13:49 Pulse Rate 63 01/08/18 18:49 Respiratory Rate 16 01/08/18 18:49 Blood Pressure 91/64 01/08/18 18:49 O2 Sat by Pulse Oximetry 100 01/08/18 18:49 Oxygen Delivery Oxygen Delivery Bipap Procedures - Central Line Placement Right IJ Central Line Inserted*: Yes Central Line Catheter Replacement*: No Central Line Insertion: emergent Consent Obtained: written consent Procedural Pause: verify patient name and date of , timeout performed per policy, sugar and assess the site, assemble equipment and verify supplies, perform hand hygiene Patient Placed on Monitor/Pulse Ox: Yes During the Procedure: clinician is wearing sterile gloves, cap, mask,& gown during insertion, sterile field and sterile technique are maintained, patient's face is covered with drape or mask and wearing a cap, everyone in room is wearing a mask Central Line Prep: Chlorhexidine scrub Prep the Procedure Site: apply chloraprep to the skin using a back and forth scrubbing motion, apply chloraprep for 30 seconds (upper body), 1-2 min ( femoral sites), allow prep to dry, drape the patient with a full body drape Local Anesthetic: lidocaine 1% Amount of anesthesia used (mL): 2 Ultrasound Used for Placement: Yes Central Line Lumen Inserted: triple Post Procedure: sutured in place Post Procedure X-Ray: tip of catheter in good position, no pneumothorax seen Patient Tolerated Procedure: well Complications: none Name of Clinician Inserting Central Line: Cecile Lezama Clinician Assisting/Completing Checklist: Joann See Date: 01/08/18 Time: 18:15 Medical Decision Making - Medical Records Medical records reviewed: Yes I reviewed the patient's medical records. - Lab Data Lab results reviewed: Yes I reviewed the patient's lab results. Result diagrams: 01/08/18 14:13 01/08/18 14:13 Lab Results 01/08/18 01/08/18 01/08/18 Range/Units 13:53 14:13 14:13 WBC 10.8 (4.3-11.1) K/mcL RBC 2.65 L (3.82-4.97) M/mcL Hgb 8.0 L (11.5-15.4) g/dL Hct 26.3 L (35.3-44.9) % MCV 99.2 (83.0-100.0) fL MCH 30.2 (28.0-33.3) pg MCHC 30.4 L (31.6-35.5) g/dL RDW 15.3 H (11.5-14.5) % Plt Count 104 L (140-400) K/mcL MPV 12.8 H (9.4-12.4) fL Immature Gran % 0.6 (0-4) % Seg Neutrophils % 85.7 % Lymphocytes % 6.3 % Monocytes % 7.2 % Eosinophils % 0.0 % Basophils % 0.2 % Neutrophils # 9.3 H (1.6-8.9) K/mcL Lymphocytes # 0.7 (0.6-4.6) K/mcL Monocytes # 0.8 (0.0-1.3) K/mcL Eosinophils # 0.0 (0.0-0.6) K/mcL Basophils # 0.0 (0.0-0.2) K/mcL PT 10.3 (9.4-12.1) Seconds INR 1.0 APTT 24.8 L (26.0-36.0) Seconds ABG pH (7.32-7.45) pH Units ABG pCO2 (35-45) mmHg ABG pO2 (85-104) mmHg ABG HCO3 (21-27) mEq/L ABG Total CO2 (20-26) mEq/L ABG O2 Saturation (95-98) % ABG Base Excess (-2 to 3) mEq/L Sodium (136-145) mEq/L Potassium (3.5-5.1) mEq/L Chloride (98-107) mEq/L Carbon Dioxide (23-29) mEq/L BUN (8-23) mg/dL Creatinine (0.60-1.20) mg/dL Est GFR ( Amer) (> 60) Est GFR (Non-Af Amer) (> 60) BUN/Creatinine Ratio (6-26) Glucose (70-105) mg/dL POC Glucose 197 H (58-89) mg/dL Calculated Osmolality (280-300) Lactic Acid (0.5-2.2) mmol/L Calcium (8.6-10.3) mg/dL Phosphorus (2.7-4.5) mg/dL Magnesium (1.6-2.6) mg/dL Total Bilirubin (0.3-1.0) mg/dL Direct Bilirubin (0.0-0.2) mg/dL Indirect Bilirubin (0.0-1.2) mg/dL AST (13-39) Units/L ALT (7-52) Units/L Alkaline Phosphatase (34-104) Units/L Troponin I (< 0.04) ng/mL B-Natriuretic Peptide (Less than 100) pg/mL Serum Total Protein (6.4-8.9) g/dL Albumin (3.5-5.7) g/dL Globulin (2.4-3.5) g/dL Albumin/Globulin Ratio (1.1-2.2) Urine Color (Yellow) Urine Clarity (Clear) Urine pH (5.0-8.0) pH Units Ur Specific Belcher (1.010-1.025) Urine Protein (Neg-Trace) mg/dL Urine Glucose (UA) (Normal) mg/dL Urine Ketones (Negative) mg/dL Urine Blood (Negative) Urine Nitrite (Negative) Urine Bilirubin (Negative) Urine Urobilinogen (Normal) mg/dL Ur Leukocyte Esterase (Negative) Urine Microscopic RBC (0-3) per hpf Urine Microscopic WBC (0-3) per hpf Ur Squamous Epith Cells (None-Few) per lpf Urine Bacteria (None-Few) per hpf Urine Yeast (None Seen) per hpf Ur Culture Indicated? (NO) Person Notif of Crit 01/08/18 01/08/18 01/08/18 Range/Units 14:13 14:13 14:13 WBC (4.3-11.1) K/mcL RBC (3.82-4.97) M/mcL Hgb (11.5-15.4) g/dL Hct (35.3-44.9) % MCV (83.0-100.0) fL MCH (28.0-33.3) pg MCHC (31.6-35.5) g/dL RDW (11.5-14.5) % Plt Count (140-400) K/mcL MPV (9.4-12.4) fL Immature Gran % (0-4) % Seg Neutrophils % % Lymphocytes % % Monocytes % % Eosinophils % % Basophils % % Neutrophils # (1.6-8.9) K/mcL Lymphocytes # (0.6-4.6) K/mcL Monocytes # (0.0-1.3) K/mcL Eosinophils # (0.0-0.6) K/mcL Basophils # (0.0-0.2) K/mcL PT (9.4-12.1) Seconds INR APTT (26.0-36.0) Seconds ABG pH (7.32-7.45) pH Units ABG pCO2 (35-45) mmHg ABG pO2 (85-104) mmHg ABG HCO3 (21-27) mEq/L ABG Total CO2 (20-26) mEq/L ABG O2 Saturation (95-98) % ABG Base Excess (-2 to 3) mEq/L Sodium 134 L (136-145) mEq/L Potassium 4.8 (3.5-5.1) mEq/L Chloride 89 L (98-107) mEq/L Carbon Dioxide 36 H (23-29) mEq/L BUN 119 H (8-23) mg/dL Creatinine 4.97 H (0.60-1.20) mg/dL Est GFR ( Amer) 11 L (> 60) Est GFR (Non-Af Amer) 9 L (> 60) BUN/Creatinine Ratio 24 (6-26) Glucose 157 H (70-105) mg/dL POC Glucose (58-89) mg/dL Calculated Osmolality 319 H (280-300) Lactic Acid 0.6 (0.5-2.2) mmol/L Calcium 8.2 L (8.6-10.3) mg/dL Phosphorus 7.0 H (2.7-4.5) mg/dL Magnesium 2.7 H (1.6-2.6) mg/dL Total Bilirubin 0.4 (0.3-1.0) mg/dL Direct Bilirubin 0.2 (0.0-0.2) mg/dL Indirect Bilirubin 0.2 (0.0-1.2) mg/dL AST 27 (13-39) Units/L ALT 12 (7-52) Units/L Alkaline Phosphatase 59 (34-104) Units/L Troponin I 0.05 H* (< 0.04) ng/mL B-Natriuretic Peptide 910 H (Less than 100) pg/mL Serum Total Protein 5.9 L (6.4-8.9) g/dL Albumin 3.4 L (3.5-5.7) g/dL Globulin 2.5 (2.4-3.5) g/dL Albumin/Globulin Ratio 1.4 (1.1-2.2) Urine Color (Yellow) Urine Clarity (Clear) Urine pH (5.0-8.0) pH Units Ur Specific Belcher (1.010-1.025) Urine Protein (Neg-Trace) mg/dL Urine Glucose (UA) (Normal) mg/dL Urine Ketones (Negative) mg/dL Urine Blood (Negative) Urine Nitrite (Negative) Urine Bilirubin (Negative) Urine Urobilinogen (Normal) mg/dL Ur Leukocyte Esterase (Negative) Urine Microscopic RBC (0-3) per hpf Urine Microscopic WBC (0-3) per hpf Ur Squamous Epith Cells (None-Few) per lpf Urine Bacteria (None-Few) per hpf Urine Yeast (None Seen) per hpf Ur Culture Indicated? (NO) Person Notif of Crit 01/08/18 01/08/18 01/08/18 Range/Units 14:36 14:53 15:08 WBC (4.3-11.1) K/mcL RBC (3.82-4.97) M/mcL Hgb (11.5-15.4) g/dL Hct (35.3-44.9) % MCV (83.0-100.0) fL MCH (28.0-33.3) pg MCHC (31.6-35.5) g/dL RDW (11.5-14.5) % Plt Count (140-400) K/mcL MPV (9.4-12.4) fL Immature Gran % (0-4) % Seg Neutrophils % % Lymphocytes % % Monocytes % % Eosinophils % % Basophils % % Neutrophils # (1.6-8.9) K/mcL Lymphocytes # (0.6-4.6) K/mcL Monocytes # (0.0-1.3) K/mcL Eosinophils # (0.0-0.6) K/mcL Basophils # (0.0-0.2) K/mcL PT (9.4-12.1) Seconds INR APTT (26.0-36.0) Seconds ABG pH 7.25 L (7.32-7.45) pH Units ABG pCO2 86 H* (35-45) mmHg ABG pO2 131 H (85-104) mmHg ABG HCO3 38 H (21-27) mEq/L ABG Total CO2 40 H (20-26) mEq/L ABG O2 Saturation 98 (95-98) % ABG Base Excess 9 H (-2 to 3) mEq/L Sodium (136-145) mEq/L Potassium (3.5-5.1) mEq/L Chloride (98-107) mEq/L Carbon Dioxide (23-29) mEq/L BUN (8-23) mg/dL Creatinine (0.60-1.20) mg/dL Est GFR ( Amer) (> 60) Est GFR (Non-Af Amer) (> 60) BUN/Creatinine Ratio (6-26) Glucose (70-105) mg/dL POC Glucose 140 H (58-89) mg/dL Calculated Osmolality (280-300) Lactic Acid (0.5-2.2) mmol/L Calcium (8.6-10.3) mg/dL Phosphorus (2.7-4.5) mg/dL Magnesium (1.6-2.6) mg/dL Total Bilirubin (0.3-1.0) mg/dL Direct Bilirubin (0.0-0.2) mg/dL Indirect Bilirubin (0.0-1.2) mg/dL AST (13-39) Units/L ALT (7-52) Units/L Alkaline Phosphatase (34-104) Units/L Troponin I (< 0.04) ng/mL B-Natriuretic Peptide (Less than 100) pg/mL Serum Total Protein (6.4-8.9) g/dL Albumin (3.5-5.7) g/dL Globulin (2.4-3.5) g/dL Albumin/Globulin Ratio (1.1-2.2) Urine Color Yellow (Yellow) Urine Clarity Cloudy A (Clear) Urine pH 5.0 (5.0-8.0) pH Units Ur Specific Belcher 1.024 (1.010-1.025) Urine Protein Trace (Neg-Trace) mg/dL Urine Glucose (UA) Normal (Normal) mg/dL Urine Ketones Negative (Negative) mg/dL Urine Blood Negative (Negative) Urine Nitrite Negative (Negative) Urine Bilirubin Small H (Negative) Urine Urobilinogen Normal (Normal) mg/dL Ur Leukocyte Esterase Moderate H (Negative) Urine Microscopic RBC 0-3 (0-3) per hpf Urine Microscopic WBC TNTC H (0-3) per hpf Ur Squamous Epith Cells Many H (None-Few) per lpf Urine Bacteria None Seen (None-Few) per hpf Urine Yeast Many H (None Seen) per hpf Ur Culture Indicated? NO. (NO) Person Notif of Miles LEZAMA 01/08/18 Range/Units 18:02 WBC (4.3-11.1) K/mcL RBC (3.82-4.97) M/mcL Hgb (11.5-15.4) g/dL Hct (35.3-44.9) % MCV (83.0-100.0) fL MCH (28.0-33.3) pg MCHC (31.6-35.5) g/dL RDW (11.5-14.5) % Plt Count (140-400) K/mcL MPV (9.4-12.4) fL Immature Gran % (0-4) % Seg Neutrophils % % Lymphocytes % % Monocytes % % Eosinophils % % Basophils % % Neutrophils # (1.6-8.9) K/mcL Lymphocytes # (0.6-4.6) K/mcL Monocytes # (0.0-1.3) K/mcL Eosinophils # (0.0-0.6) K/mcL Basophils # (0.0-0.2) K/mcL PT (9.4-12.1) Seconds INR APTT (26.0-36.0) Seconds ABG pH (7.32-7.45) pH Units ABG pCO2 (35-45) mmHg ABG pO2 (85-104) mmHg ABG HCO3 (21-27) mEq/L ABG Total CO2 (20-26) mEq/L ABG O2 Saturation (95-98) % ABG Base Excess (-2 to 3) mEq/L Sodium (136-145) mEq/L Potassium (3.5-5.1) mEq/L Chloride (98-107) mEq/L Carbon Dioxide (23-29) mEq/L BUN (8-23) mg/dL Creatinine (0.60-1.20) mg/dL Est GFR ( Amer) (> 60) Est GFR (Non-Af Amer) (> 60) BUN/Creatinine Ratio (6-26) Glucose (70-105) mg/dL POC Glucose (58-89) mg/dL Calculated Osmolality (280-300) Lactic Acid 0.4 L (0.5-2.2) mmol/L Calcium (8.6-10.3) mg/dL Phosphorus (2.7-4.5) mg/dL Magnesium (1.6-2.6) mg/dL Total Bilirubin (0.3-1.0) mg/dL Direct Bilirubin (0.0-0.2) mg/dL Indirect Bilirubin (0.0-1.2) mg/dL AST (13-39) Units/L ALT (7-52) Units/L Alkaline Phosphatase (34-104) Units/L Troponin I (< 0.04) ng/mL B-Natriuretic Peptide (Less than 100) pg/mL Serum Total Protein (6.4-8.9) g/dL Albumin (3.5-5.7) g/dL Globulin (2.4-3.5) g/dL Albumin/Globulin Ratio (1.1-2.2) Urine Color (Yellow) Urine Clarity (Clear) Urine pH (5.0-8.0) pH Units Ur Specific Belcher (1.010-1.025) Urine Protein (Neg-Trace) mg/dL Urine Glucose (UA) (Normal) mg/dL Urine Ketones (Negative) mg/dL Urine Blood (Negative) Urine Nitrite (Negative) Urine Bilirubin (Negative) Urine Urobilinogen (Normal) mg/dL Ur Leukocyte Esterase (Negative) Urine Microscopic RBC (0-3) per hpf Urine Microscopic WBC (0-3) per hpf Ur Squamous Epith Cells (None-Few) per lpf Urine Bacteria (None-Few) per hpf Urine Yeast (None Seen) per hpf Ur Culture Indicated? (NO) Person Notif of Crit - Radiology Data Radiology results reviewed: Yes I reviewed the patient's radiology results. Head CT 01/08/18 15:24 IMPRESSION: No acute intracranial abnormality. D/ / 01/08/2018 17:07:26 Franck Watkins MD / darren Interpreting Provider: Franck Watkins MD Chest X-Ray 01/08/18 18:00 IMPRESSION: Right IJ central venous catheter in place tip in the SVC. No pneumothorax is seen. Persistent elevated right hemidiaphragm. D/ / 01/08/2018 18:27:25 Franck Watkins MD / nichol Interpreting Provider: Franck Watkins MD - EKG Data EKG #1 EKG attestation: Yes I reviewed and interpreted this EKG. EKG results narrative: sinus rhythm at a rate of 74. Respirations 106. QT is 423. QTC is 451. No significant changes from previous EKG dated 12/21/2017. No signs of acute ischemia. Sepsis Reassessment Note - Evaluation Sepsis Screen: No Definite Risk Current Stage of Sepsis: septic shock Possible Source of Sepsis: GI tract/intra-abdominal - Focused Exam Date of Encounter: 01/08/18 Time of Encounter: 15:20 Vital Signs: Vital Signs Temp Pulse Resp BP Pulse Ox 01/08/18 18:49 63 16 91/64 100 01/08/18 17:47 67 12 100 01/08/18 17:38 69 17 87/36 100 01/08/18 17:20 69 16 98/39 100 01/08/18 17:04 69 16 91/46 100 01/08/18 16:16 66 20 89/52 100 01/08/18 15:35 62 12 88/43 100 01/08/18 15:10 62 12 84/39 100 01/08/18 15:02 77/37 01/08/18 14:59 64 15 82/39 100 01/08/18 14:02 98 01/08/18 14:00 19 91/64 98 01/08/18 13:49 98.7 F 77 26 80/44 100 Respiratory Exam: Present: CTA bilaterally Cardiovascular Exam: Present: RRR Capillary Refill: < 2 seconds Peripheral Pulse Strength: 3+ normal Peripheral Pulse Location: Radial Skin Exam: normal turgor
[2018-01-08 14:33] LABS: Basophils % 0.2 %; Hematocrit 26.3 % (35.3-44.9); Immature Granulocytes % 0.6 % (0-4); Lymphocytes # 0.7 K/mcL (0.6-4.6); Lymphocytes % 6.3 %; Mean Corpuscular HGB Conc 30.4 g/dL (31.6-35.5); Mean Corpuscular Hemoglobin 30.2 pg (28.0-33.3); Mean Corpuscular Volume 99.2 fL (83.0-100.0); Mean Platelet Volume 12.8 fL (9.4-12.4); Monocytes # 0.8 K/mcL (0.0-1.3); Monocytes % 7.2 %; Neutrophils # 9.3 K/mcL (1.6-8.9); Platelet Count 104 K/mcL (140-400); Red Blood Count 2.65 M/mcL (3.82-4.97); Red Cell Distribution Width 15.3 % (11.5-14.5); Segmented Neutrophils % 85.7 %
[2018-01-08 14:46] LABS: Prothrombin Time 10.3 Seconds (9.4-12.1)
[2018-01-08 14:47] LABS: Bilirubin,Urine Small (Negative); Blood,Urine Negative (Negative); Clarity,Urine Cloudy (Clear); Color,Urine Yellow (Yellow); Glucose,Urine (UA) Normal (Normal); Ketones,Urine Negative (Negative); Leukocyte Esterase,Urine Moderate (Negative); Nitrite,Urine Negative (Negative); Protein,Urine Trace mg/dL (Neg-Trace); Specific Gravity,Urine 1.024 (1.010-1.025); Urobilinogen,Urine Normal (Normal)
[2018-01-08 14:49] LABS: Activated Partial Thrombo Time 24.8 Seconds (26.0-36.0)
[2018-01-08 14:50] LABS: Bacteria,Urine None Seen per hpf (None-Few); Squamous Epithelial Cell,Urine Many per lpf (None-Few); WBC,Urine TNTC per hpf (0-3)
[2018-01-08 14:52] LABS: Albumin 3.4 g/dL (3.5-5.7); Albumin/Globulin Ratio 1.4 (1.1-2.2); Bilirubin,Direct 0.2 mg/dL (0.0-0.2); Bilirubin,Indirect 0.2 mg/dL (0.0-1.2); Bilirubin,Total 0.4 mg/dL (0.3-1.0); Calcium 8.2 mg/dL (8.6-10.3); Globulin 2.5 g/dL (2.4-3.5); Magnesium 2.7 mg/dL (1.6-2.6); Potassium 4.8 mEq/L (3.5-5.1); Total Protein 5.9 g/dL (6.4-8.9)
[2018-01-08 14:55] LABS: Troponin I 0.05 ng/mL (< 0.04)
[2018-01-08] MEDS ORDERED: 0.9 % Sodium Chloride 1,000 ML ONE (15:06)
[2018-01-08 15:10] LABS: RBC,Urine 0-3 per hpf (0-3); Yeast,Urine Many per hpf (None Seen)
[2018-01-08 15:14] LABS: ABG Base Excess 9 mEq/L (-2 to 3); ABG HCO3 38 mEq/L (21-27); ABG Oxygen Saturation 98 % (95-98); ABG PCO2 86 mmHg (35-45); ABG PH 7.25 pH Units (7.32-7.45); ABG PO2 131 mmHg (85-104); ABG TCO2 40 mEq/L (20-26)
--- NOTE | 2018-01-08 15:15 | Emergency Department Note ---
Disposition Clinical Impression: Acute on chronic respiratory failure with hypoxia and hypercapnia, Weakness, Septic shock Renal failure (ARF), acute on chronic Qualifiers: Acute renal failure type: unspecified Chronic kidney disease stage: unspecified stage Qualified Code(s): N17.9 - Acute kidney failure, unspecified Urinary tract infection Qualifiers: Urinary tract infection type: acute cystitis Hematuria presence: without hematuria Qualified Code(s): N30.00 - Acute cystitis without hematuria Disposition: Admitted As Inpatient Condition: Critical Referrals: Aayush Chase MD [Primary Care Provider] - Forms: ED Satisfaction Letter General Adult HPI - General Chief complaint: ED Shortness of Breath/Dyspnea Stated complaint: lethargic Time Seen by Provider: 01/08/18 13:51 Source: EMS Limitations: altered mental status - History of Present Illness Pain Scale: 0 - Related Data Home Medications Medication Instructions Recorded Confirmed Esomeprazole Magnesium [Nexium] 40 mg PO DAILY 04/06/16 01/08/18 Glimepiride [Amaryl] 4 mg PO QAM 04/06/16 01/08/18 Latanoprost [Xalatan] 1 drop BOTH EYES HS 04/06/16 01/08/18 Simvastatin [Zocor] 40 mg PO HS 04/06/16 01/08/18 SitaGLIPtin [Januvia] 100 mg PO DAILY 04/06/16 01/08/18 Albuterol Sulfate [Albuterol 2 puff IH Q4H PRN 04/14/17 01/08/18 Inhaler] Citalopram Hydrobromide 40 mg PO HS 04/14/17 01/08/18 [Citalopram HBr] Docusate [Colace] 100 mg PO DAILY 04/14/17 01/08/18 Gabapentin [Neurontin] 600 mg PO HS 04/14/17 01/08/18 Valsartan [Diovan] 80 mg PO DAILY 04/14/17 01/08/18 Spironolactone [Aldactone] 25 mg PO DAILY 07/24/17 01/08/18 Brimonidine 0.2% [Alphagan] 1 drop BOTH EYES AD 12/19/17 01/08/18 Propylene Glycol/Peg 400 [Systane 1 drop OP QID 12/19/17 01/08/18 Ultra 0.4-0.3% Eye Drp] clonazePAM [Klonopin] 0.5 mg PO BID PRN 12/19/17 01/08/18 Fluconazole [Diflucan] 100 mg PO DAILY 01/08/18 01/08/18 Previous Rx's Medication Instructions Recorded Furosemide [Lasix] 40 mg PO BID 14 Days #28 12/27/17 Allergies Allergy/AdvReac Type Severity Reaction Status Date / Time hydrocodone [From Vicodin] AdvReac Nausea Verified 12/19/17 12:48 Hydromorphone [From Dilaudid] AdvReac Nausea Verified 12/19/17 12:48 Past Medical History - Past Medical History Medical history: Reports: CHF, COPD, diabetes, fibromyalgia, hyperlipidemia, hypertension Surgical history: Reports: other Psychiatric history: Reports: anxiety, depression - Social History Smoking Status: Never smoker Smokeless Tobacco Status: No Alcohol use: Reports: none Drug use: Reports: none Physical Exam - General Limitations: altered mental status General appearance: lethargic Course - Reevaluation(s) Reevaluation #1: I examined this patient and my medical decision-making was reviewed with the Resident Physician. I agree with the documented findings, disposition and treatment plan as described except to the extent set forth below. Patient presented to the ED with altered mental status. halfway called EMS because she was lethargic. Satting in the upper 70s on her BiPAP which normally wears all the time. She has history of CHF and COPD. EMS her blood sugar 50. They gave her D10 and she is now more awake and alert. On arrival here she is awake alert. Eyes closed but responds appropriately to verbal stimulus. Lungs diminished. Plan. Nebs. ABG shows a hypercapnia. She became more lethargic during her stay here. On arousal. Patient is a DNR Comfort Care R chart that she signed. Discussed with family at this time. Family considering intubation. Time: 15:14 Reevaluation #2: Patient with UTI and acute renal failure. Lactate still pending however patient will be septic shock criteria based on her blood pressure and acute renal failure. Second liter fluids ordered. We will order a third as well. Starting IV antibiotics. We will admit. Time: 15:26 Reevaluation #3: Patient 70s of low blood pressure. Will place central line. Accepted by medicine. Patient now awake alert and talking appropriately. Time: 17:21 Vital Signs Temperature 98.7 F 01/08/18 13:49 Pulse Rate 77 01/08/18 13:49 Respiratory Rate 26 01/08/18 13:49 Blood Pressure 80/44 01/08/18 13:49 O2 Sat by Pulse Oximetry 100 01/08/18 13:49 Temperature 98.7 F 01/08/18 13:49 Pulse Rate 63 01/08/18 18:49 Respiratory Rate 16 01/08/18 18:49 Blood Pressure 91/64 01/08/18 18:49 O2 Sat by Pulse Oximetry 100 01/08/18 18:49 Oxygen Delivery Oxygen Delivery Bipap Medical Decision Making - Lab Data Result diagrams: 01/08/18 14:13 01/08/18 14:13 Lab Results 01/08/18 01/08/18 01/08/18 Range/Units 13:53 14:13 14:13 WBC 10.8 (4.3-11.1) K/mcL RBC 2.65 L (3.82-4.97) M/mcL Hgb 8.0 L (11.5-15.4) g/dL Hct 26.3 L (35.3-44.9) % MCV 99.2 (83.0-100.0) fL MCH 30.2 (28.0-33.3) pg MCHC 30.4 L (31.6-35.5) g/dL RDW 15.3 H (11.5-14.5) % Plt Count 104 L (140-400) K/mcL MPV 12.8 H (9.4-12.4) fL Immature Gran % 0.6 (0-4) % Seg Neutrophils % 85.7 % Lymphocytes % 6.3 % Monocytes % 7.2 % Eosinophils % 0.0 % Basophils % 0.2 % Neutrophils # 9.3 H (1.6-8.9) K/mcL Lymphocytes # 0.7 (0.6-4.6) K/mcL Monocytes # 0.8 (0.0-1.3) K/mcL Eosinophils # 0.0 (0.0-0.6) K/mcL Basophils # 0.0 (0.0-0.2) K/mcL PT 10.3 (9.4-12.1) Seconds INR 1.0 APTT 24.8 L (26.0-36.0) Seconds ABG pH (7.32-7.45) pH Units ABG pCO2 (35-45) mmHg ABG pO2 (85-104) mmHg ABG HCO3 (21-27) mEq/L ABG Total CO2 (20-26) mEq/L ABG O2 Saturation (95-98) % ABG Base Excess (-2 to 3) mEq/L Sodium (136-145) mEq/L Potassium (3.5-5.1) mEq/L Chloride (98-107) mEq/L Carbon Dioxide (23-29) mEq/L BUN (8-23) mg/dL Creatinine (0.60-1.20) mg/dL Est GFR ( Amer) (> 60) Est GFR (Non-Af Amer) (> 60) BUN/Creatinine Ratio (6-26) Glucose (70-105) mg/dL POC Glucose 197 H (58-89) mg/dL Calculated Osmolality (280-300) Lactic Acid (0.5-2.2) mmol/L Calcium (8.6-10.3) mg/dL Phosphorus (2.7-4.5) mg/dL Magnesium (1.6-2.6) mg/dL Total Bilirubin (0.3-1.0) mg/dL Direct Bilirubin (0.0-0.2) mg/dL Indirect Bilirubin (0.0-1.2) mg/dL AST (13-39) Units/L ALT (7-52) Units/L Alkaline Phosphatase (34-104) Units/L Troponin I (< 0.04) ng/mL B-Natriuretic Peptide (Less than 100) pg/mL Serum Total Protein (6.4-8.9) g/dL Albumin (3.5-5.7) g/dL Globulin (2.4-3.5) g/dL Albumin/Globulin Ratio (1.1-2.2) Urine Color (Yellow) Urine Clarity (Clear) Urine pH (5.0-8.0) pH Units Ur Specific [place] (1.010-1.025) Urine Protein (Neg-Trace) mg/dL Urine Glucose (UA) (Normal) mg/dL Urine Ketones (Negative) mg/dL Urine Blood (Negative) Urine Nitrite (Negative) Urine Bilirubin (Negative) Urine Urobilinogen (Normal) mg/dL Ur Leukocyte Esterase (Negative) Urine Microscopic RBC (0-3) per hpf Urine Microscopic WBC (0-3) per hpf Ur Squamous Epith Cells (None-Few) per lpf Urine Bacteria (None-Few) per hpf Urine Yeast (None Seen) per hpf Ur Culture Indicated? (NO) Person Notif of Crit 01/08/18 01/08/18 01/08/18 Range/Units 14:13 14:13 14:13 WBC (4.3-11.1) K/mcL RBC (3.82-4.97) M/mcL Hgb (11.5-15.4) g/dL Hct (35.3-44.9) % MCV (83.0-100.0) fL MCH (28.0-33.3) pg MCHC (31.6-35.5) g/dL RDW (11.5-14.5) % Plt Count (140-400) K/mcL MPV (9.4-12.4) fL Immature Gran % (0-4) % Seg Neutrophils % % Lymphocytes % % Monocytes % % Eosinophils % % Basophils % % Neutrophils # (1.6-8.9) K/mcL Lymphocytes # (0.6-4.6) K/mcL Monocytes # (0.0-1.3) K/mcL Eosinophils # (0.0-0.6) K/mcL Basophils # (0.0-0.2) K/mcL PT (9.4-12.1) Seconds INR APTT (26.0-36.0) Seconds ABG pH (7.32-7.45) pH Units ABG pCO2 (35-45) mmHg ABG pO2 (85-104) mmHg ABG HCO3 (21-27) mEq/L ABG Total CO2 (20-26) mEq/L ABG O2 Saturation (95-98) % ABG Base Excess (-2 to 3) mEq/L Sodium 134 L (136-145) mEq/L Potassium 4.8 (3.5-5.1) mEq/L Chloride 89 L (98-107) mEq/L Carbon Dioxide 36 H (23-29) mEq/L BUN 119 H (8-23) mg/dL Creatinine 4.97 H (0.60-1.20) mg/dL Est GFR ( Amer) 11 L (> 60) Est GFR (Non-Af Amer) 9 L (> 60) BUN/Creatinine Ratio 24 (6-26) Glucose 157 H (70-105) mg/dL POC Glucose (58-89) mg/dL Calculated Osmolality 319 H (280-300) Lactic Acid 0.6 (0.5-2.2) mmol/L Calcium 8.2 L (8.6-10.3) mg/dL Phosphorus 7.0 H (2.7-4.5) mg/dL Magnesium 2.7 H (1.6-2.6) mg/dL Total Bilirubin 0.4 (0.3-1.0) mg/dL Direct Bilirubin 0.2 (0.0-0.2) mg/dL Indirect Bilirubin 0.2 (0.0-1.2) mg/dL AST 27 (13-39) Units/L ALT 12 (7-52) Units/L Alkaline Phosphatase 59 (34-104) Units/L Troponin I 0.05 H* (< 0.04) ng/mL B-Natriuretic Peptide 910 H (Less than 100) pg/mL Serum Total Protein 5.9 L (6.4-8.9) g/dL Albumin 3.4 L (3.5-5.7) g/dL Globulin 2.5 (2.4-3.5) g/dL Albumin/Globulin Ratio 1.4 (1.1-2.2) Urine Color (Yellow) Urine Clarity (Clear) Urine pH (5.0-8.0) pH Units Ur Specific [place] (1.010-1.025) Urine Protein (Neg-Trace) mg/dL Urine Glucose (UA) (Normal) mg/dL Urine Ketones (Negative) mg/dL Urine Blood (Negative) Urine Nitrite (Negative) Urine Bilirubin (Negative) Urine Urobilinogen (Normal) mg/dL Ur Leukocyte Esterase (Negative) Urine Microscopic RBC (0-3) per hpf Urine Microscopic WBC (0-3) per hpf Ur Squamous Epith Cells (None-Few) per lpf Urine Bacteria (None-Few) per hpf Urine Yeast (None Seen) per hpf Ur Culture Indicated? (NO) Person Notif of Crit 01/08/18 01/08/18 01/08/18 Range/Units 14:36 14:53 15:08 WBC (4.3-11.1) K/mcL RBC (3.82-4.97) M/mcL Hgb (11.5-15.4) g/dL Hct (35.3-44.9) % MCV (83.0-100.0) fL MCH (28.0-33.3) pg MCHC (31.6-35.5) g/dL RDW (11.5-14.5) % Plt Count (140-400) K/mcL MPV (9.4-12.4) fL Immature Gran % (0-4) % Seg Neutrophils % % Lymphocytes % % Monocytes % % Eosinophils % % Basophils % % Neutrophils # (1.6-8.9) K/mcL Lymphocytes # (0.6-4.6) K/mcL Monocytes # (0.0-1.3) K/mcL Eosinophils # (0.0-0.6) K/mcL Basophils # (0.0-0.2) K/mcL PT (9.4-12.1) Seconds INR APTT (26.0-36.0) Seconds ABG pH 7.25 L (7.32-7.45) pH Units ABG pCO2 86 H* (35-45) mmHg ABG pO2 131 H (85-104) mmHg ABG HCO3 38 H (21-27) mEq/L ABG Total CO2 40 H (20-26) mEq/L ABG O2 Saturation 98 (95-98) % ABG Base Excess 9 H (-2 to 3) mEq/L Sodium (136-145) mEq/L Potassium (3.5-5.1) mEq/L Chloride (98-107) mEq/L Carbon Dioxide (23-29) mEq/L BUN (8-23) mg/dL Creatinine (0.60-1.20) mg/dL Est GFR ( Amer) (> 60) Est GFR (Non-Af Amer) (> 60) BUN/Creatinine Ratio (6-26) Glucose (70-105) mg/dL POC Glucose 140 H (58-89) mg/dL Calculated Osmolality (280-300) Lactic Acid (0.5-2.2) mmol/L Calcium (8.6-10.3) mg/dL Phosphorus (2.7-4.5) mg/dL Magnesium (1.6-2.6) mg/dL Total Bilirubin (0.3-1.0) mg/dL Direct Bilirubin (0.0-0.2) mg/dL Indirect Bilirubin (0.0-1.2) mg/dL AST (13-39) Units/L ALT (7-52) Units/L Alkaline Phosphatase (34-104) Units/L Troponin I (< 0.04) ng/mL B-Natriuretic Peptide (Less than 100) pg/mL Serum Total Protein (6.4-8.9) g/dL Albumin (3.5-5.7) g/dL Globulin (2.4-3.5) g/dL Albumin/Globulin Ratio (1.1-2.2) Urine Color Yellow (Yellow) Urine Clarity Cloudy A (Clear) Urine pH 5.0 (5.0-8.0) pH Units Ur Specific [place] 1.024 (1.010-1.025) Urine Protein Trace (Neg-Trace) mg/dL Urine Glucose (UA) Normal (Normal) mg/dL Urine Ketones Negative (Negative) mg/dL Urine Blood Negative (Negative) Urine Nitrite Negative (Negative) Urine Bilirubin Small H (Negative) Urine Urobilinogen Normal (Normal) mg/dL Ur Leukocyte Esterase Moderate H (Negative) Urine Microscopic RBC 0-3 (0-3) per hpf Urine Microscopic WBC TNTC H (0-3) per hpf Ur Squamous Epith Cells Many H (None-Few) per lpf Urine Bacteria None Seen (None-Few) per hpf Urine Yeast Many H (None Seen) per hpf Ur Culture Indicated? NO. (NO) Person Notif of Miles LEZAMA 01/08/18 Range/Units 18:02 WBC (4.3-11.1) K/mcL RBC (3.82-4.97) M/mcL Hgb (11.5-15.4) g/dL Hct (35.3-44.9) % MCV (83.0-100.0) fL MCH (28.0-33.3) pg MCHC (31.6-35.5) g/dL RDW (11.5-14.5) % Plt Count (140-400) K/mcL MPV (9.4-12.4) fL Immature Gran % (0-4) % Seg Neutrophils % % Lymphocytes % % Monocytes % % Eosinophils % % Basophils % % Neutrophils # (1.6-8.9) K/mcL Lymphocytes # (0.6-4.6) K/mcL Monocytes # (0.0-1.3) K/mcL Eosinophils # (0.0-0.6) K/mcL Basophils # (0.0-0.2) K/mcL PT (9.4-12.1) Seconds INR APTT (26.0-36.0) Seconds ABG pH (7.32-7.45) pH Units ABG pCO2 (35-45) mmHg ABG pO2 (85-104) mmHg ABG HCO3 (21-27) mEq/L ABG Total CO2 (20-26) mEq/L ABG O2 Saturation (95-98) % ABG Base Excess (-2 to 3) mEq/L Sodium (136-145) mEq/L Potassium (3.5-5.1) mEq/L Chloride (98-107) mEq/L Carbon Dioxide (23-29) mEq/L BUN (8-23) mg/dL Creatinine (0.60-1.20) mg/dL Est GFR ( Amer) (> 60) Est GFR (Non-Af Amer) (> 60) BUN/Creatinine Ratio (6-26) Glucose (70-105) mg/dL POC Glucose (58-89) mg/dL Calculated Osmolality (280-300) Lactic Acid 0.4 L (0.5-2.2) mmol/L Calcium (8.6-10.3) mg/dL Phosphorus (2.7-4.5) mg/dL Magnesium (1.6-2.6) mg/dL Total Bilirubin (0.3-1.0) mg/dL Direct Bilirubin (0.0-0.2) mg/dL Indirect Bilirubin (0.0-1.2) mg/dL AST (13-39) Units/L ALT (7-52) Units/L Alkaline Phosphatase (34-104) Units/L Troponin I (< 0.04) ng/mL B-Natriuretic Peptide (Less than 100) pg/mL Serum Total Protein (6.4-8.9) g/dL Albumin (3.5-5.7) g/dL Globulin (2.4-3.5) g/dL Albumin/Globulin Ratio (1.1-2.2) Urine Color (Yellow) Urine Clarity (Clear) Urine pH (5.0-8.0) pH Units Ur Specific [place] (1.010-1.025) Urine Protein (Neg-Trace) mg/dL Urine Glucose (UA) (Normal) mg/dL Urine Ketones (Negative) mg/dL Urine Blood (Negative) Urine Nitrite (Negative) Urine Bilirubin (Negative) Urine Urobilinogen (Normal) mg/dL Ur Leukocyte Esterase (Negative) Urine Microscopic RBC (0-3) per hpf Urine Microscopic WBC (0-3) per hpf Ur Squamous Epith Cells (None-Few) per lpf Urine Bacteria (None-Few) per hpf Urine Yeast (None Seen) per hpf Ur Culture Indicated? (NO) Person Notif of Crit Critical Care Time Critical Care Time: Yes Total Critical Care Time: 45 Attestation: Critical care performed: Time is exclusive of separately billable procedures. Time includes: direct patient care, patient reassessment, coordination of patient care, interpretation of data (laboratory data, radiology data, and respiratory data), review of patient's medical records, medical consultation and documentation of patient care. Procedures included in critical care time: Procedures excluded from critical care time:
[2018-01-08] MEDS ORDERED: 0.9 % Sodium Chloride 1,000 ML IVC ONE ×3 (15:16→15:26)
[2018-01-08] MEDS ORDERED: Levofloxacin 750 MG/150 ML 750 MG/150 ML BAG IVPB ONE (15:26)
[2018-01-08] MEDS ORDERED: Piperacillin/Tazobactam 3.375 GM in 0.9 % Sodium Chloride Mini Bag 100 ML IVPB ONE (15:26)
[2018-01-08] MEDS ORDERED: Fluconazole 200 MG/100 ML 200 MG/100 ML BAG IVPB SCH (16:30)
[2018-01-08] MEDS: Norepinephrine 4 MG in D5% in Water 250 ML IVC SCH (18:37)
--- NOTE | 2018-01-08 19:01 | Internal Med History&Physical ---
Date of Encounter: 01/08/18 Time of Encounter: 18:00 Assessment and Plan (1) Septic shock Current visit: Yes Status: Acute Patient with acute on chronic hypoxic/hypercapnic respiratory failure and hypotension unresponsive to fluid resuscitation and questionable UTI on urinalysis Continue Levophed started in the ER and IV vancomycin and Zosyn (2) Acute on chronic respiratory failure with hypoxia and hypercapnia Current visit: Yes Status: Acute In the ER, patient was found to have respiratory acidosis with a pH of 7.25 and PCO2 of 86. Patient was placed on BiPAP in the ER and will continue in the ICU. Perinatal Nurse was consulted and appreciate recommendations (3) Urinary tract infection Current visit: Yes Status: Acute Patient with pyuria and yeast seen on urinalysis Continue IV fluconazole started in the ER until culture results known Qualifiers: Urinary tract infection type: acute cystitis Hematuria presence: without hematuria Qualified Code(s): N30.00 - Acute cystitis without hematuria (4) Elevated troponin Current visit: Yes Status: Acute Suspect secondary to demand ischemia; will trend serial troponins (5) Renal failure (ARF), acute on chronic Current visit: Yes Status: Acute Suspect secondary to septic shock Patient with elevated creatinine above baseline at 4.97 secondary to septic shock Continue fluid resuscitation and pressors Qualifiers: Acute renal failure type: unspecified Chronic kidney disease stage: unspecified stage Qualified Code(s): N17.9 - Acute kidney failure, unspecified ; N18.9 - Chronic kidney disease, unspecified; N18.9 - Chronic kidney disease, unspecified (6) Diastolic CHF Current visit: No Status: Acute Stable; patient euvolemic Qualifiers: Heart failure chronicity: acute on chronic Qualified Code(s): I50.33 - Acute on chronic diastolic (congestive) heart failure (7) Obesity hypoventilation syndrome Current visit: No Status: Acute Will continue BiPAP as above (8) Anemia Current visit: No Status: Chronic Patient with history of chronic anemia and hemoglobin close to baseline Qualifiers: Anemia type: unspecified type Qualified Code(s): D64.9 - Anemia, unspecified (9) Diabetes Current visit: No Status: Chronic Continue home meds Qualifiers: Diabetes mellitus type: type 2 Diabetes mellitus prison insulin use: without superintendent container terminal use Diabetes mellitus complication status: with kidney complications Diabetes mellitus complication detail: with chronic kidney disease Chronic kidney disease stage: stage 3 (moderate) Qualified Code(s): E11.22 - Type 2 diabetes mellitus with diabetic chronic kidney disease; N18.3 - Chronic kidney disease, stage 3 (moderate); N18.3 - Chronic kidney disease, stage 3 (moderate) (10) Hypertension Current visit: No Status: Chronic Patient in septic shock so will hold blood pressure medications Qualifiers: Hypertension type: essential hypertension Qualified Code(s): I10 - Essential (primary) hypertension (11) Morbid obesity Current visit: No Status: Chronic Lifestyle modifications (12) DVT prophylaxis Current visit: No Status: Acute Subcutaneous heparin Internal Medicine - H&P: HPI Chief complaint: Effusion Admitted From: Long-term Nursing Facility Plans for Post Hospital Care: [facility] History of present illness: Patient is a 62-year-old female with past medical history significant for chronic hypercapnic/hypoxic respiratory failure, diabetes, hypertension, hyperlipidemia and obesity who presents to the ER for ECF on 01/08/18 due to confusion. She is not able to give much history but family who is present at the bedside reports that patient has been confused for the past 3 days and they attributed to her not wearing her BiPAP during the day. Family requested that the patient be brought to the ER for further workup. She was just recently discharged on 12/31/17 and was managed for acute on chronic hypercapnic/hypoxic respiratory failure secondary to pneumonia and COPD exacerbation. Family reports that when the patient was discharged, she was instructed to wear BiPAP most the time during the day which she has not been doing. In the ER, patient was found to have respiratory acidosis with a pH of 7.25 and PCO2 of 86. Patient was placed on BiPAP. Patient also found to be in septic shock with blood pressures unresponsive to 3 L of fluid so Levophed was started and patient was started on IV vancomycin, IV Zosyn and fluconazole due to yeast in urinalysis. Patient will be admitted to ICU for further management were septic shock and acute on chronic hypoxic/hypercapnic respiratory. Past Med Surg Social Fam HX - Past Medical History Medical history: CHF, COPD, diabetes, fibromyalgia, hyperlipidemia, hypertension Psychiatric history: anxiety, depression - Past Surgical History Surgical History: other - Social History Smoking Status: Never smoker Smokeless Tobacco Status: No Alcohol use: none Drug use: none - Family History Father Family Member Ethnicity: Non- Living Status: Hx Family Cardiac Disorders: Yes ([place], HTN) Brother Family Member Ethnicity: Non- Living Status: Still Living Hx Family GI Disorders: Yes (Crohn's disease) Sister Family Member Ethnicity: Non- Living Status: Hx Family Cardiac Disorders: Yes ([place], HTN) Mother Adopted: No Family Member Ethnicity: Non- Living Status: Hx Family Cardiac Disorders: Yes (HTN, CHF) Hx Family Respiratory Disorders: Yes (COPD) Hx Family Cancer: Yes (skin) Hx Family GI Disorders: No Hx Family Endocrine Disorder: Yes (DM) Hx Family Neuromuscular Disorders: No Hx Family Neurologic Disorders: Yes (CVA with rt sided weakness) Hx Family HEENT Disorders: Yes ([place]) Hx Family Autoimmune Disorders: No Internal Medicine - H&P: Meds Esomeprazole Magnesium [Nexium] 40 mg PO DAILY 04/06/16 [History] Glimepiride [Amaryl] 4 mg PO QAM 04/06/16 [History] Latanoprost [Xalatan] 1 drop BOTH EYES HS 04/06/16 [History] Simvastatin [Zocor] 40 mg PO HS 04/06/16 [History] SitaGLIPtin [Januvia] 100 mg PO DAILY 04/06/16 [History] Albuterol Sulfate [Albuterol Inhaler] 2 puff IH Q4H PRN 04/14/17 [History] Citalopram Hydrobromide [Citalopram HBr] 40 mg PO HS 04/14/17 [History] Docusate [Colace] 100 mg PO DAILY 04/14/17 [History] Gabapentin [Neurontin] 600 mg PO HS 04/14/17 [History] Valsartan [Diovan] 80 mg PO DAILY 04/14/17 [History] Spironolactone [Aldactone] 25 mg PO DAILY 07/24/17 [History] Brimonidine 0.2% [Alphagan] 1 drop BOTH EYES AD 12/19/17 [History] Propylene Glycol/Peg 400 [Systane Ultra 0.4-0.3% Eye Drp] 1 drop OP QID [History] clonazePAM [Klonopin] 0.5 mg PO BID PRN 12/19/17 [History] Furosemide [Lasix] 40 mg PO BID 14 Days #28 12/27/17 [Rx] Fluconazole [Diflucan] 100 mg PO DAILY 01/08/18 [History] 3 Allergy/AdvReac Type Severity Reaction Status Date / Time hydrocodone [From Vicodin] AdvReac Nausea Verified 12/19/17 12:48 Hydromorphone [From Dilaudid] AdvReac Nausea Verified 12/19/17 12:48 ROS unobtainable: due to mental status All Systems PM: A 10-system review of systems was performed and is negative for pertinent findings except as documented above in the HPI. - Constitutional Vitals: Temp Pulse Resp BP Pulse Ox 98.7 F 63 16 91/64 100 01/08/18 13:49 01/08/18 18:49 01/08/18 18:49 01/08/18 18:49 01/08/18 18:49 General appearance: Present: mild distress - Head Head exam: Present: normocephalic - Eye Eye exam: Present: normal appearance - ENT ENT exam: Present: mucous membranes dry - Respiratory Respiratory exam: Present: respiratory distress - Cardiovascular Cardiovascular exam: Present: RRR, +S1, +S2. Absent: diastolic murmur, gallop, rubs, systolic murmur - GI/Abdominal GI/Abdominal exam: Present: normal bowel sounds, soft, no peritoneal signs. Absent: distended, tenderness - Extremities Exam Extremities exam: Absent: pedal edema - Neurological Exam Neurological exam: Present: alert, altered - Psychiatric Psychiatric exam: Present: normal mood - Skin Skin exam: Present: normal color Internal Med - H&P Results - Labs CBC & Chem 7: 01/08/18 14:13 01/08/18 14:13 Labs: Short CBC 01/08/18 Range/Units 14:13 WBC 10.8 (4.3-11.1) K/mcL Hgb 8.0 L (11.5-15.4) g/dL Hct 26.3 L (35.3-44.9) % Plt Count 104 L (140-400) K/mcL Neutrophils # 9.3 H (1.6-8.9) K/mcL BMP 01/08/18 14:13 Sodium 134 L Potassium 4.8 Chloride 89 L Carbon Dioxide 36 H BUN 119 H Creatinine 4.97 H Glucose 157 H Calcium 8.2 L Cardiac Enzymes 01/08/18 Range/Units 14:13 Troponin I 0.05 H* (< 0.04) ng/mL Liver Function 01/08/18 Range/Units 14:13 Total Bilirubin 0.4 (0.3-1.0) mg/dL Direct Bilirubin 0.2 (0.0-0.2) mg/dL AST 27 (13-39) Units/L ALT 12 (7-52) Units/L Alkaline Phosphatase 59 (34-104) Units/L Albumin 3.4 L (3.5-5.7) g/dL Urine 01/08/18 Range/Units 14:36 Urine Color Yellow (Yellow) Urine Clarity Cloudy A (Clear) Urine pH 5.0 (5.0-8.0) pH Units Ur Specific [place] 1.024 (1.010-1.025) Urine Protein Trace (Neg-Trace) mg/dL Urine Glucose (UA) Normal (Normal) mg/dL - ABG Interpretation ABG results: 01/08/18 15:08 ABG pH 7.25 L ABG pCO2 86 H* ABG pO2 131 H ABG HCO3 38 H ABG Total CO2 40 H ABG O2 Saturation 98 ABG Base Excess 9 H - Impressions ITS Impressions Chest X-Ray 01/08/18 13:59 IMPRESSION: Stable chest with no acute process demonstrated D/ / Ricardo Cox MD / Ricardo Cox MD Interpreting Provider: Ricardo Cox MD Head CT 01/08/18 15:24 IMPRESSION: No acute intracranial abnormality. D/ / 01/08/2018 17:07:26 Franck Watkins MD / darren Interpreting Provider: Franck Watkins MD Chest X-Ray 01/08/18 18:00 IMPRESSION: Right IJ central venous catheter in place tip in the SVC. No pneumothorax is seen. Persistent elevated right hemidiaphragm. D/ / 01/08/2018 18:27:25 Franck Watkins MD / nichol Interpreting Provider: Franck Watkins MD
[2018-01-08] MEDS ORDERED: Vancomycin 1 EACH in 0.9 % Sodium Chloride 250 ML IVPB SCH (20:00)
[2018-01-08] MEDS: *HR* Heparin 5,000 UNIT/ML VIAL SQ SCH (20:54)
[2018-01-08] MEDS: 0.9 % Sodium Chloride 1,000 ML IVC SCH (20:54)
[2018-01-08 20:58] LABS: Hematocrit 27.8 % (35.3-44.9); Hemoglobin 8.3 g/dL (11.5-15.4); Immature Granulocytes % 0.7 % (0-4); Lymphocytes # 1.2 K/mcL (0.6-4.6); Mean Corpuscular HGB Conc 29.9 g/dL (31.6-35.5); Mean Corpuscular Hemoglobin 30.1 pg (28.0-33.3); Mean Corpuscular Volume 100.7 fL (83.0-100.0); Mean Platelet Volume 12.6 fL (9.4-12.4); Monocytes # 1.1 K/mcL (0.0-1.3); Monocytes % 9.1 %; Neutrophils # 9.8 K/mcL (1.6-8.9); Platelet Count 118 K/mcL (140-400); Red Blood Count 2.76 M/mcL (3.82-4.97); Red Cell Distribution Width 15.4 % (11.5-14.5); Segmented Neutrophils % 80.2 %
[2018-01-08 21:03] LABS: Prothrombin Time 10.3 Seconds (9.4-12.1)
[2018-01-08 21:06] LABS: Activated Partial Thrombo Time 22.5 Seconds (26.0-36.0)
[2018-01-08 21:17] LABS: Albumin 3.4 g/dL (3.5-5.7); Albumin/Globulin Ratio 1.4 (1.1-2.2); Bilirubin,Direct 0.2 mg/dL (0.0-0.2); Bilirubin,Indirect 0.3 mg/dL (0.0-1.2); Bilirubin,Total 0.5 mg/dL (0.3-1.0); Calcium 7.6 mg/dL (8.6-10.3); Globulin 2.5 g/dL (2.4-3.5); Potassium 4.6 mEq/L (3.5-5.1); Total Protein 5.9 g/dL (6.4-8.9)
[2018-01-09 00:23] LABS: ABG Base Excess 4 mEq/L (-2 to 3); ABG HCO3 34 mEq/L (21-27); ABG Oxygen Saturation 97 % (95-98); ABG PCO2 95 mmHg (35-45); ABG PH 7.16 pH Units (7.32-7.45); ABG PO2 115 mmHg (85-104); ABG TCO2 37 mEq/L (20-26); Blood Gas Modality AVAPS; Blood Gas PEEP 6 cm H2O; Blood Gas Pressure Support 15 cm H2O; Blood Gas VT 500 cc
[2018-01-09 02:10] LABS: ABG Base Excess 5 mEq/L (-2 to 3); ABG HCO3 34 mEq/L (21-27); ABG Oxygen Saturation 95 % (95-98); ABG PCO2 82 mmHg (35-45); ABG PH 7.23 pH Units (7.32-7.45); ABG PO2 94 mmHg (85-104); ABG TCO2 37 mEq/L (20-26); Blood Gas Modality AVAPS; Blood Gas PEEP 6 cm H2O; Blood Gas Pressure Support 15 cm H2O; Blood Gas VT 600 cc
[2018-01-09] MEDS: Piperacillin/Tazobactam 3.375 GM in 0.9 % Sodium Chloride Mini Bag 100 ML IVPB SCH ×2 (03:27→16:39)
[2018-01-09 03:53] LABS: Basophils % 0.2 %; Eosinophils % 0.1 %; Hematocrit 26.8 % (35.3-44.9); Immature Granulocytes % 0.5 % (0-4); Lymphocytes # 1.2 K/mcL (0.6-4.6); Lymphocytes % 9.8 %; Mean Corpuscular HGB Conc 29.9 g/dL (31.6-35.5); Mean Corpuscular Hemoglobin 29.7 pg (28.0-33.3); Mean Corpuscular Volume 99.6 fL (83.0-100.0); Mean Platelet Volume 12.1 fL (9.4-12.4); Monocytes # 1.3 K/mcL (0.0-1.3); Monocytes % 10.1 %; Neutrophils # 9.8 K/mcL (1.6-8.9); Platelet Count 118 K/mcL (140-400); Red Blood Count 2.69 M/mcL (3.82-4.97); Red Cell Distribution Width 15.4 % (11.5-14.5); Segmented Neutrophils % 79.3 %
[2018-01-09 04:04] LABS: Calcium 7.6 mg/dL (8.6-10.3); Potassium 4.7 mEq/L (3.5-5.1)
[2018-01-09 05:03] LABS: ABG Base Excess 5 mEq/L (-2 to 3); ABG HCO3 34 mEq/L (21-27); ABG Oxygen Saturation 94 % (95-98); ABG PCO2 79 mmHg (35-45); ABG PH 7.24 pH Units (7.32-7.45); ABG PO2 87 mmHg (85-104); ABG TCO2 36 mEq/L (20-26); Blood Gas Modality AVAPS; Blood Gas PEEP 6 cm H2O; Blood Gas Pressure Support 15 cm H2O; Blood Gas VT 600 cc
[2018-01-09] MEDS: *HR* Heparin 5,000 UNIT/ML VIAL SQ SCH ×3 (05:06→22:30)
[2018-01-09] MEDS: Norepinephrine 4 MG in D5% in Water 250 ML IVC SCH ×3 (05:07→21:50)
[2018-01-09] MEDS: 0.9 % Sodium Chloride 1,000 ML IVC SCH ×2 (05:07→14:32)
[2018-01-09 06:47] LABS: ABG Base Excess 4 mEq/L (-2 to 3); ABG HCO3 32 mEq/L (21-27); ABG Oxygen Saturation 96 % (95-98); ABG PCO2 69 mmHg (35-45); ABG PH 7.27 pH Units (7.32-7.45); ABG PO2 97 mmHg (85-104); ABG TCO2 34 mEq/L (20-26); Blood Gas Modality AVAPS; Blood Gas PEEP 6 cm H2O; Blood Gas Pressure Support 15 cm H2O; Blood Gas VT 600 cc
--- NOTE | 2018-01-09 06:50 | Event Note ---
Date of Encounter: 01/09/18 Time of Encounter: 06:48 Patient with acute hypercarbic/hypoxic respiratory failure. Here with septic shock. Been dealing with Acidosis and CO2 retention throughout the night. Bipap settings changed throughout the night. Latest ABG 7.27 PCO2 69, PO2 97, HCO3 32. Will keep on Bipap
[2018-01-09] MEDS ORDERED: Dextrose Gel 15 GM/37.5 ML TUBE PO PRN ×2 (07:46)
[2018-01-09] MEDS ORDERED: D5% in Water 1,000 ML IVC PRN (07:46)
[2018-01-09] MEDS ORDERED: *HR* Dextrose 50 % in Water (Syg) 50 ML SYRINGE ONE (07:51)
[2018-01-09] MEDS: *HR* Dextrose 50 % in Water (Syg) 50 ML SYRINGE IVP PRN ×2 (07:57→08:47)
[2018-01-09] MEDS ORDERED: Ipratropium/Albuterol Neb 3 ML IH PRN (08:26)
--- NOTE | 2018-01-09 08:32 | Pulmonology Consult Note ---
<Halley Mueller - Last Filed: 01/09/18 13:53> Date of Encounter: 01/09/18 Time of Encounter: 08:00 Assessment and Plan (1) Septic shock Current Visit: Yes Status: Acute Hypotension resistant to fluid resuscitation. Levophed initiated. Urine analysis suspicious for UTI, pending culture. Vancomycin, Zosyn, and fluconazole initiated. Afebrile, mild leukocytosis. Lactic acid wnl. Currently organism is unspecified but cultures pending. Cortisol level within normal limits. Arterial line placed in right UE. Plan: - continue Vancomycin (day 1) and Zosyn (day 1), D/c fluconazole. -UA pending - blood cultures pending - sputum culture pending - respiratory panel pending - arterial line placed (2) Acute on chronic respiratory failure with hypoxia and hypercapnia Current Visit: Yes Status: Acute acute on chronic resp failure 2/2 COPD exacerbation. Hx of COPD and asthma. Oxygen dependent at home. Patient is chronically hypercapnic. Recently weaned off steroids from previous hospital admission. CXR negative for acute processes. Plan: - continue BIPAP, high risk for intubation 2/2 to metabolic encephalopathy - ABGs improving, continue to monitor - DuoNebs Q4H prn - Diet: NPO due to AMS and BIPAP dependent (3) Renal failure (ARF), acute on chronic Current Visit: Yes Status: Acute MARIFER with a hx of CKD III. Initial creatinine = 4.40. Patient on 12/30 had a vancomycin trough of 40 and creatinine began to rise right before discharge, therefore vancomycin toxicity could be contributing along with septic shock causing hypoperfusion. Plan: - Nephrology consulted and added urine, eosinphil, urine creatinine, urine sodium - US retroperitoneal pending - Qualifiers: Acute renal failure type: unspecified Chronic kidney disease stage: unspecified stage Qualified Code(s): N17.9 - Acute kidney failure, unspecified ; N18.9 - Chronic kidney disease, unspecified; N18.9 - Chronic kidney disease, unspecified (4) Urinary tract infection Current Visit: Yes Status: Acute UA leuk esterase moderate, WBC TNTC. Plan: - urine culture pending - continuing Zosyn Qualifiers: Urinary tract infection type: acute cystitis Hematuria presence: without hematuria Qualified Code(s): N30.00 - Acute cystitis without hematuria (5) Diabetes mellitus type 2 in obese Current Visit: Yes Status: Acute Episodes of hypoglycemia. Continuing to monitor Q1H accuchecks. Plan: - Low SSI - Diet: NPO - (6) Anemia in chronic kidney disease Current Visit: Yes Status: Acute baseline hemoglobin around 9. Currently stable. Will continue to monitor. No signs of bleeding. Qualifiers: Chronic kidney disease stage: stage 3 (moderate) Qualified Code(s): N18.3 - Chronic kidney disease, stage 3 (moderate); D63.1 - Anemia in chronic kidney disease; D63.1 - Anemia in chronic kidney disease (7) Diastolic CHF Current Visit: No Status: Acute Echo pending. XdG=445 but CXR negative for acute processes. Previous Echo which showed EF 65% moderate left ventricular diastolic dysfunction, mild aortic sclerosis, severe pulmonary hypertension. Qualifiers: Heart failure chronicity: acute on chronic Qualified Code(s): I50.33 - Acute on chronic diastolic (congestive) heart failure (8) Elevated troponin Current Visit: Yes Status: Acute Troponin stable. Likely 2/2 to demand ischemia. (9) Obesity hypoventilation syndrome Current Visit: No Status: Acute (10) DVT prophylaxis Current Visit: No Status: Acute Heparin SQ (11) Goals of care, counseling/discussion Current Visit: Yes Status: Acute Family states that patient signed papers for DNR-cc but she was not altered when she signed these. They believe that really she desires to be full code as she has expressed to them she wants to live, per ED note/conversation with Dr. Tristan Therefore code was changed to full code. History of Present Illness Consult date: 01/08/18 Requesting physician: Boston Villatoro Reason for consult: hypoxemia Chief complaint: AMS History of present illness: Ms. Cox is a 62-year-old female past medical history of diabetes type 2, COPD , asthma, hypertension and CKD stage III presented to the ED from the group home with altered mental status and was found to be hypoglycemic, acute on chronic respiratory failure, septic shock 2/2 UTI, and MARIFER. Per ED note EMS found patient with a glucose of 50 and started D5 W. Patient arrived at the ED on BiPAP was placed. Patient was found to be hypotensive and did not respond to fluids so Levophed was started. CT of head and CXR were negative for acute processes. BNP elevated at 910. Troponin initially elevated at 0.05 but remained stable. Urine showed moderate leukocyte esterases and WBC TNTC so patient was diagnosed with UTI. ABG initial showed pH= 7.25, CO2 = 86, O2= 131, HCO3=38. Initial creatinine = 4.4. Patient was just in the hospital 2 weeks ago and was given vancomycin which had a trough of 40 which is most likely contributing to part of this MARIFER. Over the course of last night until this morning, ABGs improved but glucose was found to be 59. Glucose improved but patient has become more encephalopathic and less responsive even with improved of blood glucose. Patient has continued to be hypotensive with Lephoved. Patient was not opening her eyes to verbal stimuli but was following commands intermittently. She did pull away from painful stimuli. Unable to completely a review of systems as patient due to encephalopathy. Past Med Surg Social Fam HX - Past Medical History Medical history: asthma, CHF, COPD, diabetes, fibromyalgia, hyperlipidemia, hypertension Psychiatric history: anxiety, depression - Past Surgical History Surgical History: other - Social History Smoking Status: Never smoker Smokeless Tobacco Status: No Alcohol use: none Drug use: none - Family History Father Family Member Ethnicity: Non- Living Status: Hx Family Cardiac Disorders: Yes ([place], HTN) Brother Family Member Ethnicity: Non- Living Status: Still Living Hx Family GI Disorders: Yes (Crohn's disease) Sister Family Member Ethnicity: Non- Living Status: Hx Family Cardiac Disorders: Yes ([place], HTN) Mother Adopted: No Family Member Ethnicity: Non- Living Status: Hx Family Cardiac Disorders: Yes (HTN, CHF) Hx Family Respiratory Disorders: Yes (COPD) Hx Family Cancer: Yes (skin) Hx Family GI Disorders: No Hx Family Endocrine Disorder: Yes (DM) Hx Family Neuromuscular Disorders: No Hx Family Neurologic Disorders: Yes (CVA with rt sided weakness) Hx Family HEENT Disorders: Yes ([place]) Hx Family Autoimmune Disorders: No Medications and Allergies Esomeprazole Magnesium [Nexium] 40 mg PO DAILY 04/06/16 [History] Glimepiride [Amaryl] 4 mg PO QAM 04/06/16 [History] Latanoprost [Xalatan] 1 drop BOTH EYES HS 04/06/16 [History] Simvastatin [Zocor] 40 mg PO HS 04/06/16 [History] SitaGLIPtin [Januvia] 100 mg PO DAILY 04/06/16 [History] Albuterol Sulfate [Albuterol Inhaler] 2 puff IH Q4H PRN 04/14/17 [History] Citalopram Hydrobromide [Citalopram HBr] 40 mg PO HS 04/14/17 [History] Docusate [Colace] 100 mg PO DAILY 04/14/17 [History] Gabapentin [Neurontin] 600 mg PO HS 04/14/17 [History] Valsartan [Diovan] 80 mg PO DAILY 04/14/17 [History] Spironolactone [Aldactone] 25 mg PO DAILY 07/24/17 [History] Brimonidine 0.2% [Alphagan] 1 drop BOTH EYES AD 12/19/17 [History] Propylene Glycol/Peg 400 [Systane Ultra 0.4-0.3% Eye Drp] 1 drop OP QID [History] clonazePAM [Klonopin] 0.5 mg PO BID PRN 12/19/17 [History] Furosemide [Lasix] 40 mg PO BID 14 Days #28 12/27/17 [Rx] Fluconazole [Diflucan] 100 mg PO DAILY 01/08/18 [History] 3 Allergy/AdvReac Type Severity Reaction Status Date / Time hydrocodone [From Vicodin] AdvReac Nausea Verified 12/19/17 12:48 Hydromorphone [From Dilaudid] AdvReac Nausea Verified 12/19/17 12:48 ROS unobtainable: due to mental status All Systems: The remainder of the systems were reviewed and are negative Physical Examination Vital Signs: Vital Signs, Last 4 Hours Temp Pulse Resp BP Pulse Ox 01/09/18 07:55 99.2 F 01/09/18 07:36 74 01/09/18 07:00 99.2 F 73 24 94/78 100 01/09/18 06:00 73 15 93/63 97 01/09/18 05:01 96.8 F L 01/09/18 05:00 71 17 75/57 96 Constitutional: Somnolent, resting comfortably. Head: Normocephalic, atraumatic Heart: regular rhythm, bradycardic , no murmurs Lungs: +rhonchi heard with BIPAP 30% Abdomen: Soft, nondistended, nontender, no guarding or rigidity. Extremities: no edema, radial pulse +2/4, capillary refill <2sec. Skin: Skin warm and dry, no lesions, no jaundice Neurologic: unable to open eyes to verbal stimuli, following commands intermittently to hand squeeze. Withdrawing from painful stimuli. Line: arterial line, RIJ Ventilator Settings Ventilator Settings: Ventilator Settings, Last 8 Hours Ventilator Tidal Volume 600 Setting Results - Laboratory Findings CBC and BMP: 01/09/18 03:37 01/09/18 03:37 ABG ABG pH 7.27 pH Units (7.32-7.45) L 01/09/18 06:43 ABG pCO2 69 mmHg (35-45) H 01/09/18 06:43 ABG pO2 97 mmHg (85-104) 01/09/18 06:43 ABG O2 Saturation 96 % (95-98) 01/09/18 06:43 PT/INR, D-dimer PT 10.3 Seconds (9.4-12.1) 01/08/18 20:42 Abnormal lab findings: Abnormal lab results WBC 12.3 K/mcL (4.3-11.1) H 01/09/18 03:37 RBC 2.69 M/mcL (3.82-4.97) L 01/09/18 03:37 Hgb 8.0 g/dL (11.5-15.4) L 01/09/18 03:37 Hct 26.8 % (35.3-44.9) L 01/09/18 03:37 MCHC 29.9 g/dL (31.6-35.5) L 01/09/18 03:37 RDW 15.4 % (11.5-14.5) H 01/09/18 03:37 Plt Count 118 K/mcL (140-400) L 01/09/18 03:37 Neutrophils # 9.8 K/mcL (1.6-8.9) H 01/09/18 03:37 APTT 22.5 Seconds (26.0-36.0) L 01/08/18 20:42 ABG pH 7.27 pH Units (7.32-7.45) L 01/09/18 06:43 ABG pCO2 69 mmHg (35-45) H 01/09/18 06:43 ABG HCO3 32 mEq/L (21-27) H 01/09/18 06:43 ABG Total CO2 34 mEq/L (20-26) H 01/09/18 06:43 ABG Base Excess 4 mEq/L (-2 to 3) H 01/09/18 06:43 Carbon Dioxide 32 mEq/L (23-29) H 01/09/18 03:37 BUN 109 mg/dL (8-23) H 01/09/18 03:37 Creatinine 4.40 mg/dL (0.60-1.20) H 01/09/18 03:37 Est GFR ( Amer) 12 (> 60) L 01/09/18 03:37 Est GFR (Non-Af Amer) 10 (> 60) L 01/09/18 03:37 Glucose 68 mg/dL (70-105) L 01/09/18 03:37 Calculated Osmolality 317 (280-300) H 01/09/18 03:37 Calcium 7.6 mg/dL (8.6-10.3) L 01/09/18 03:37 Phosphorus 7.0 mg/dL (2.7-4.5) H 01/08/18 14:13 Magnesium 2.7 mg/dL (1.6-2.6) H 01/08/18 14:13 Troponin I 0.04 ng/mL (< 0.04) H* 01/09/18 00:50 B-Natriuretic Peptide 910 pg/mL (Less than 100) H 01/08/18 14:13 Serum Total Protein 5.9 g/dL (6.4-8.9) L 01/08/18 20:42 Albumin 3.4 g/dL (3.5-5.7) L 01/08/18 20:42 Urine Clarity Cloudy (Clear) A 01/08/18 14:36 Urine Bilirubin Small (Negative) H 01/08/18 14:36 Ur Leukocyte Esterase Moderate (Negative) H 01/08/18 14:36 Urine Microscopic WBC TNTC per hpf (0-3) H 01/08/18 14:36 Ur Squamous Epith Cells Many per lpf (None-Few) H 01/08/18 14:36 Urine Yeast Many per hpf (None Seen) H 01/08/18 14:36 - Clinical Findings Intake & Output: Intake & Output 01/08/18 01/09/18 01/09/18 23:59 07:59 15:59 Intake Total 115 / 3715 1239 / 1239 Output Total 300 / 300 Balance 115 / 3715 939 / 939 Weight 109.4 kg Consult Discharge Plan - Plan Referrals: Aayush Chase MD [Primary Care Provider] - <Beau Tristan W - Last Filed: 01/09/18 16:41> Date of Encounter: 01/09/18 All Systems: The remainder of the systems were reviewed and are negative Physical Examination Vital Signs: Vital Signs, Last 4 Hours Temp Pulse Resp BP Pulse Ox 01/09/18 15:04 81 01/09/18 15:00 98.0 F 78 13 131/42 99 01/09/18 14:00 69 25 131/39 99 01/09/18 13:00 74 13 132/38 99 Ventilator Settings Ventilator Settings: Ventilator Settings, Last 8 Hours Ventilator Tidal Volume 600 Setting Ventilator Respiratory Rate 8 Setting Positive End Expiratory 6 Pressure Results - Laboratory Findings CBC and BMP: 01/09/18 03:37 01/09/18 03:37 ABG ABG pH 7.32 pH Units (7.32-7.45) 01/09/18 09:47 ABG pCO2 58 mmHg (35-45) H 01/09/18 09:47 ABG pO2 97 mmHg (85-104) 01/09/18 09:47 ABG O2 Saturation 97 % (95-98) 01/09/18 09:47 PT/INR, D-dimer PT 10.3 Seconds (9.4-12.1) 01/08/18 20:42 Abnormal lab findings: Abnormal lab results WBC 12.3 K/mcL (4.3-11.1) H 01/09/18 03:37 RBC 2.69 M/mcL (3.82-4.97) L 01/09/18 03:37 Hgb 8.0 g/dL (11.5-15.4) L 01/09/18 03:37 Hct 26.8 % (35.3-44.9) L 01/09/18 03:37 MCHC 29.9 g/dL (31.6-35.5) L 01/09/18 03:37 RDW 15.4 % (11.5-14.5) H 01/09/18 03:37 Plt Count 118 K/mcL (140-400) L 01/09/18 03:37 Neutrophils # 9.8 K/mcL (1.6-8.9) H 01/09/18 03:37 APTT 22.5 Seconds (26.0-36.0) L 01/08/18 20:42 ABG pCO2 58 mmHg (35-45) H 01/09/18 09:47 ABG HCO3 30 mEq/L (21-27) H 01/09/18 09:47 ABG Total CO2 32 mEq/L (20-26) H 01/09/18 09:47 Carbon Dioxide 32 mEq/L (23-29) H 01/09/18 03:37 BUN 109 mg/dL (8-23) H 01/09/18 03:37 Creatinine 4.40 mg/dL (0.60-1.20) H 01/09/18 03:37 Est GFR ( Amer) 12 (> 60) L 01/09/18 03:37 Est GFR (Non-Af Amer) 10 (> 60) L 01/09/18 03:37 Glucose 68 mg/dL (70-105) L 01/09/18 03:37 POC Glucose 128 mg/dL (58-89) H 01/09/18 15:01 Calculated Osmolality 317 (280-300) H 01/09/18 03:37 Uric Acid 11.9 mg/dL (2.3-7.6) H 01/09/18 10:40 Calcium 7.6 mg/dL (8.6-10.3) L 01/09/18 03:37 Phosphorus 7.0 mg/dL (2.7-4.5) H 01/08/18 14:13 Magnesium 2.7 mg/dL (1.6-2.6) H 01/08/18 14:13 Creatine Kinase 1091 Units/L (30-223) H 01/09/18 10:40 Troponin I 0.04 ng/mL (< 0.04) H* 01/09/18 00:50 B-Natriuretic Peptide 910 pg/mL (Less than 100) H 01/08/18 14:13 Serum Total Protein 5.9 g/dL (6.4-8.9) L 01/08/18 20:42 Albumin 3.4 g/dL (3.5-5.7) L 01/08/18 20:42 Urine Clarity Cloudy (Clear) A 01/08/18 14:36 Urine Bilirubin Small (Negative) H 01/08/18 14:36 Ur Leukocyte Esterase Moderate (Negative) H 01/08/18 14:36 Urine Microscopic WBC TNTC per hpf (0-3) H 01/08/18 14:36 Ur Squamous Epith Cells Many per lpf (None-Few) H 01/08/18 14:36 Urine Yeast Many per hpf (None Seen) H 01/08/18 14:36 - Clinical Findings Intake & Output: Intake & Output 01/09/18 01/09/18 01/09/18 07:59 15:59 23:59 Intake Total 1239 / 1239 454 / 454 Output Total 300 / 300 400 / 400 Balance 939 / 939 54 / 54 Weight 109.4 kg - Attending Attestation I examined this patient and my medical decision-making was reviewed with the Resident Physician. I agree with the documented findings, disposition and treatment plan as described except to the extent set forth below. We independently had [id number] contact with the patient I spent 32min of Critical Care time with this patient. It involved decision making of high complexity to assess, manipulate, and support vital organ system failure and/or to prevent further life threatening deterioration of the patient' s condition. The time involved in the performance of separately reportable procedures was not counted toward critical care time. Patient seen and examined at bedside Labs, radiology, chart personally reviewed. Management was reviewed during multidisciplinary critical care rounds. REEFER ENGINEER: Acute encephalopathy which secondary to metabolic derangements from acute kidney injury likely complicated by a medication side effect from decreased renal clearance. No focal neurological deficit and head CT is without acute process she is at high risk for further decline requiring intubation to maintain airway although currently she is able to do so Pulm: Acute on chronic hypoxic hypercarbic respiratory failure this is complicated by underlying hydrostatic pulmonary edema, OSAS,, severe diaphragmatic hernia with restrictive lung physiology, and acutely worsened by metabolic derangements driving increased respiratory demand. Currently she is responding to AVAPS mode of NIV 's reassuring blood gases will continue to monitor this closely she has a high risk of deteriorating to needing intubation as noted Cards: Patient is in the likely vasodilatory shock secondary to sepsis. She is requiring Levophed to maintain MAP >60. She has evidence of hydrostatic pulmonary edema but unable to diuresis because of hypotension at present. Echocardiogram pending FEN-GI: Nothing by mouth for now GI prophylaxis given Renal: Acute on chronic renal failure which may be related to nephrotoxins in the form of vancomycin at last hospitalization complicated by diuretic regimen and hypotension nephrology following no acute indication for renal replacement we will have to monitor this very closely we will monitor her potassium as well which currently is within the normal range ID: She is being treated broadly for likely sepsis possible sources her UTI versus pneumonia de-escalation based upon clinical course Heme/Onc: DVT prophylaxis given Endo: Glucose Monitored Integ/MSK: Skin Care per routine ICU Nursing Protocol to prevent ulcers. Lines: All lines examined without evidence of infection : Dispo: The ICU for critical illness CODE: I had a discussion with the patient's next of kin her son Albert and his at bedside. At some point during senior care facility admission the patient had foiled out a DNR CC CODE STATUS. The family was not with her when she filled this out but she has expressed to them that she "wants to live" and wanted to pursue care that would benefit her. They also explained that the mother had been confused for several days and was likely confused during the time that she made these changes to her CODE STATUS. I explained that she is critically ill with high risk of decompensation requiring intubation and possible cardiac arrest family explained that her wishes would want to continue to receive these treatments and to pursue aggressive care. Her CODE STATUS is now full code to reflect this until which time the patient can make decisions on her own in a clear fashion The patient is unable or incompetent to participate in giving a history and/or making treatment decisions. The discussion was necessary for determining treatment decision. This discussion took place in the ICU. The total meeting time was 10min in the present of STRIPPING SHOVEL OPERATOR Greg
[2018-01-09] MEDS ORDERED: Aminoglycoside Consult 1 EACH MC ONE (08:43)
[2018-01-09] MEDS: Insulin LISPRO 300 UNITS/3 ML VIAL SQ SCH ×4 (08:45→20:00)
[2018-01-09 09:50] LABS: ABG Base Excess 3 mEq/L (-2 to 3); ABG HCO3 30 mEq/L (21-27); ABG Oxygen Saturation 97 % (95-98); ABG PCO2 58 mmHg (35-45); ABG PH 7.32 pH Units (7.32-7.45); ABG PO2 97 mmHg (85-104); ABG TCO2 32 mEq/L (20-26); Blood Gas Modality NIV; Blood Gas PEEP 6 cm H2O; Blood Gas Respiration Rate 8; Blood Gas VT 600 cc
--- NOTE | 2018-01-09 11:51 | Nephrology Consult Note ---
Date of Encounter: 01/09/18 Time of Encounter: 11:30 Assessment and Plan (1) MARIFER (acute kidney injury) Current Visit: Yes Status: Acute Elevated Scr in the setting of acute resp failure and septic shock Will check uric acid and cpk levels Will check urine sodium, creatinine and eosinophils Will check US of kidney Careful use of nephrooxins if possible, vanco by levels No acute indication for DIAMOND SANDER at this time Continue fluid resuscitation Hold all diuretics and ARB for now (2) CKD (chronic kidney disease) stage 3, GFR 30-59 ml/min Current Visit: No Status: Resolved Baseline GFR around 50s (3) Acute on chronic respiratory failure with hypoxia and hypercapnia Current Visit: Yes Status: Acute per primary team History of Present Illness - Reason for Consult Consult date: 01/09/18 Requesting physician: Halley Mueller - History of Present Illness 62 y o female with PMH of DM, HTN, COPD with chronic resp. failure non compliant on cPAP, obesity presenting for altered mental status after recent discharge for respiratory issues. Renal consulted for elevated SCr at 4.97, GFR 9. Baseline SCr typically 1.07-1.17 with GFR 50s. Pt follows with Dr Ferrer for CKD management. She was noted on diuretics of lasix and aldactone along with valsartan. She also received vancco on prior hospital stay less than 2 weeks ago. She was also hypotensive with no immediate response to fluid resuscitation requring pressor support for possible septic shock along with antibiotics. No urinary sxs. Past Med Surg Social Fam HX - Past Medical History Medical history: CHF, COPD, diabetes, fibromyalgia, hyperlipidemia, hypertension Psychiatric history: anxiety, depression - Past Surgical History Surgical History: other - Social History Smoking Status: Never smoker Smokeless Tobacco Status: No Alcohol use: none Drug use: none - Family History Father Family Member Ethnicity: Non- Living Status: Hx Family Cardiac Disorders: Yes ([place], HTN) Brother Family Member Ethnicity: Non- Living Status: Still Living Hx Family GI Disorders: Yes (Crohn's disease) Sister Family Member Ethnicity: Non- Living Status: Hx Family Cardiac Disorders: Yes ([place], HTN) Mother Adopted: No Family Member Ethnicity: Non- Living Status: Hx Family Cardiac Disorders: Yes (HTN, CHF) Hx Family Respiratory Disorders: Yes (COPD) Hx Family Cancer: Yes (skin) Hx Family GI Disorders: No Hx Family Endocrine Disorder: Yes (DM) Hx Family Neuromuscular Disorders: No Hx Family Neurologic Disorders: Yes (CVA with rt sided weakness) Hx Family HEENT Disorders: Yes ([place]) Hx Family Autoimmune Disorders: No Medications and Allergies Esomeprazole Magnesium [Nexium] 40 mg PO DAILY 04/06/16 [History] Glimepiride [Amaryl] 4 mg PO QAM 04/06/16 [History] Latanoprost [Xalatan] 1 drop BOTH EYES HS 04/06/16 [History] Simvastatin [Zocor] 40 mg PO HS 04/06/16 [History] SitaGLIPtin [Januvia] 100 mg PO DAILY 04/06/16 [History] Albuterol Sulfate [Albuterol Inhaler] 2 puff IH Q4H PRN 04/14/17 [History] Citalopram Hydrobromide [Citalopram HBr] 40 mg PO HS 04/14/17 [History] Docusate [Colace] 100 mg PO DAILY 04/14/17 [History] Gabapentin [Neurontin] 600 mg PO HS 04/14/17 [History] Valsartan [Diovan] 80 mg PO DAILY 04/14/17 [History] Spironolactone [Aldactone] 25 mg PO DAILY 07/24/17 [History] Brimonidine 0.2% [Alphagan] 1 drop BOTH EYES AD 12/19/17 [History] Propylene Glycol/Peg 400 [Systane Ultra 0.4-0.3% Eye Drp] 1 drop OP QID [History] clonazePAM [Klonopin] 0.5 mg PO BID PRN 12/19/17 [History] Furosemide [Lasix] 40 mg PO BID 14 Days #28 12/27/17 [Rx] Fluconazole [Diflucan] 100 mg PO DAILY 01/08/18 [History] 3 Allergy/AdvReac Type Severity Reaction Status Date / Time hydrocodone [From Vicodin] AdvReac Nausea Verified 12/19/17 12:48 Hydromorphone [From Dilaudid] AdvReac Nausea Verified 12/19/17 12:48 Review of Systems All Systems: reviewed and no additional remarkable complaints except as stated ( 10 systems reviewed) Exam - Vital Signs Vital signs: Initial Vital Signs Temp Pulse Resp BP Pulse Ox 98.7 F 77 26 80/44 100 01/08/18 13:49 01/08/18 13:49 01/08/18 13:49 01/08/18 13:49 01/08/18 13:49 Vital Signs - Last 8 Hours Temp Pulse Resp BP Pulse Ox 01/09/18 11:27 12 124/37 99 01/09/18 11:07 67 01/09/18 11:00 99.8 F H 67 11 119/36 99 01/09/18 10:00 67 12 123/39 99 01/09/18 09:34 12 102/37 98 01/09/18 09:00 67 13 85/40 100 01/09/18 08:00 75 14 81/39 99 01/09/18 07:55 99.2 F 01/09/18 07:36 74 01/09/18 07:00 99.2 F 73 24 94/78 100 01/09/18 06:00 73 15 93/63 97 01/09/18 05:01 96.8 F L 01/09/18 05:00 71 17 75/57 96 01/09/18 04:13 17 87/58 93 01/09/18 04:00 72 18 87/58 96 Intake and Output 01/08/18 01/09/18 01/09/18 23:59 07:59 15:59 Intake Total 115 / 3715 1239 / 1239 454 / 454 Output Total 300 / 300 200 / 200 Balance 115 / 3715 939 / 939 254 / 254 Intake: IV Fluids 115 / 115 1239 / 1239 454 / 454 0.9 % Sodium Chloride 1,000 ML 1000 / 1000 300 / 300 @ 120 mls/hr IVC .Q8H20M [facility] Rx #:[id number] Levophed 4 MG In Dextrose 5% 115 / 115 139 / 139 154 / 154 250 ML @ 5 MCG/MIN 19.05 mls/hr IVC CONT [facility] Rx#:[id number] Zosyn 3.375 GM In 0.9 % Sodium 100 / 100 Chloride (Mini-Bag +) 100 ML @ 25 mls/hr IVPB Q12H [facility] Rx#: [id number] Oral 0 / 0 Output: Catheter 300 / 300 200 / 200 Other: Weight 109.4 kg Blood Glucose* 115 Patient Weight 01/09/18 23:59 Weight 109.4 kg - General Appearance General appearance: chronically ill (resting comfortably but arousable) EENT: ATNC, mucous membranes dry Neck: no JVD, supple Respiratory: course breath sounds Cardiology: no edema, normal S1, normal S2 Gastrointestinal: no tenderness, no guarding Integumentary: warm and dry Additional Comments: resting but arousable Musculoskeletal: no deformities Psychiatric: mood/affect appropriate Results - Lab Results 01/15/18 01:19 01/15/18 01:19 Most recent lab results ABG pH 7.32 pH Units (7.32-7.45) 01/09/18 09:47 ABG pCO2 58 mmHg (35-45) H 01/09/18 09:47 ABG pO2 97 mmHg (85-104) 01/09/18 09:47 ABG HCO3 30 mEq/L (21-27) H 01/09/18 09:47 ABG O2 Saturation 97 % (95-98) 01/09/18 09:47 Calcium 7.6 mg/dL (8.6-10.3) L 01/09/18 03:37 Phosphorus 7.0 mg/dL (2.7-4.5) H 01/08/18 14:13 Magnesium 2.7 mg/dL (1.6-2.6) H 01/08/18 14:13 Consult Discharge Plan - Plan Referrals: Aayush Chase MD [Primary Care Provider] -
--- NOTE | 2018-01-09 12:43 | Electrocardiograph Report ---
[address] [place], [place] [address] Test Date: 2018-01-08 Pat Name: Carmen Cox Department: 103 Room: [facility] Gender: F [employer] Associate: ARLETTE : 1955 Requested By: Joann See Order Number: [id number] Reading MD: Kirk Augustin Measurements Intervals Hodges Rate: 74 P: TX: 0 QRS: -21 QRSD: 106 T: 19 QT: 423 QTc: 451 Interpretive Statements SINUS RHYTHM BORDERLINE LEFT AXIS DEVIATION INCOMPLETE RIGHT BUNDLE BRANCH BLOCK BASELINE ARTIFACT COMPLICATES ACCURATE INTERPRETATION BASELINE ARTIFACT, REPEAT EKG Electronically Signed On 01-09-2018 12:41:30 EDT by Kirk Augustin
[2018-01-09 14:02] LABS: Sodium, Urine 20.1 mEq/L
[2018-01-09 14:21] LABS: Uric Acid 11.9 mg/dL (2.3-7.6)
[2018-01-09] MEDS: Pantoprazole 40 MG VIAL IVP SCH (14:32)
[2018-01-09 16:58] LABS: Potassium 4.7 mEq/L (3.5-5.1)
[2018-01-09] MEDS ORDERED: Perflutren Lipid Microsphere 1.3 ML in 0.9 % Sodium Chloride 8.7 ML IVP ONE (20:40)
[2018-01-10] MEDS: Insulin LISPRO 300 UNITS/3 ML VIAL SQ SCH ×5 (01:03→15:24)
[2018-01-10] MEDS: Acetaminophen 325 MG TABLET PO PRN (01:50)
[2018-01-10] MEDS: Norepinephrine 4 MG in D5% in Water 250 ML IVC SCH ×3 (03:00→17:27)
[2018-01-10] MEDS: Piperacillin/Tazobactam 3.375 GM in 0.9 % Sodium Chloride Mini Bag 100 ML IVPB SCH ×2 (04:36→15:23)
[2018-01-10] MEDS: *HR* Heparin 5,000 UNIT/ML VIAL SQ SCH ×3 (05:08→22:13)
[2018-01-10 05:26] LABS: Basophils % 0.2 %; Hematocrit 25.9 % (35.3-44.9); Hemoglobin 7.8 g/dL (11.5-15.4); Immature Granulocytes % 0.5 % (0-4); Lymphocytes # 0.9 K/mcL (0.6-4.6); Lymphocytes % 8.2 %; Mean Corpuscular HGB Conc 30.1 g/dL (31.6-35.5); Mean Corpuscular Volume 99.6 fL (83.0-100.0); Mean Platelet Volume 12.6 fL (9.4-12.4); Monocytes # 0.9 K/mcL (0.0-1.3); Monocytes % 8.6 %; Neutrophils # 8.7 K/mcL (1.6-8.9); Platelet Count 102 K/mcL (140-400); Red Cell Distribution Width 15.4 % (11.5-14.5); Segmented Neutrophils % 82.5 %
[2018-01-10 05:48] LABS: Calcium 8.2 mg/dL (8.6-10.3); Potassium 4.6 mEq/L (3.5-5.1)
--- NOTE | 2018-01-10 08:17 | Nephrology Progress Note ---
<James Cotton - Last Filed: 01/10/18 10:52> Date of Encounter: 01/10/18 Time of Encounter: 08:17 - Assessment and Plan (1) MARIFER (acute kidney injury) Status: Acute MARIFER on CKD, patient follows with Dr. Ferrer. Cr on admission was 4.36. FENa 0.7% suggestive of Pre-renal causes. Patient had a mild elevation in CK 1091 which technically is diagnostic for Rhabdo but unlikely main contributor to MARIFER. Patient recently had a fall, and had multiple bruising on her feet which is likely explanation for elevation in CK. Uric Acid is elevated at 11.9. Cr continues to improve with hydration. Will continue to monitor patient's renal function. Patient had a mild drop in hgb to 7.8; baseline isnaround 9-10. Will workup for anemia - Avoid nephrotoxins - strict I/O - renal dosing for medications - renal diet - Fe, folate, b12, occult - ordered. (2) Anemia Status: Chronic see above Qualifiers: Anemia type: unspecified type Qualified Code(s): D64.9 - Anemia, unspecified (3) COPD (chronic obstructive pulmonary disease) Status: Acute per critical care team Qualifiers: COPD type: COPD with acute exacerbation Qualified Code(s): J44.1 - Chronic obstructive pulmonary disease with (acute) exacerbation (4) Morbid obesity Status: Chronic per critical care team (5) AIMEE (obstructive sleep apnea) Status: Acute per critical care team (6) Urinary tract infection Status: Acute per critical care team Qualifiers: Urinary tract infection type: acute cystitis Hematuria presence: without hematuria Qualified Code(s): N30.00 - Acute cystitis without hematuria Subjective Principal diagnosis: AMS Interval history: Ms Cox is a 62 yo F w/ pmh of DM, HTN, COPD w/ CPAP noncompliance, obesity presented with AMS presumed 2/2 UTI. Nephrology is consulted for MARIFER on CKD. Patient was seen and examined today. No events overnight, and no new complaints. Patient denies n/v/f/c/cp. Patient reports bruising on her feet are from a recent fall. Objective - Vital Signs Vital signs: Vital Signs Temp Pulse Resp BP Pulse Ox 01/10/18 08:13 11 95/60 97 01/10/18 07:30 98.4 F 01/10/18 06:00 70 20 102/49 97 01/10/18 05:00 86 20 123/48 97 01/10/18 04:00 99.0 F 76 18 102/64 99 01/10/18 03:58 99.0 F 01/10/18 01:00 79 18 125/58 100 01/10/18 00:10 98.5 F 01/10/18 00:00 90 18 117/82 100 01/09/18 23:51 14 97 01/09/18 22:00 72 16 100/69 96 01/09/18 20:39 23 99 01/09/18 20:09 98.7 F 01/09/18 20:00 74 16 115/96 100 01/09/18 19:00 74 16 109/78 100 01/09/18 18:00 66 19 92/61 99 01/09/18 17:00 74 11 129/42 98 01/09/18 16:00 71 15 136/42 99 01/09/18 15:04 81 01/09/18 15:00 98.0 F 78 13 131/42 99 01/09/18 14:00 69 25 131/39 99 01/09/18 13:00 74 13 132/38 99 01/09/18 12:00 76 10 135/41 100 01/09/18 11:27 12 124/37 99 01/09/18 11:07 67 01/09/18 11:00 99.8 F H 67 11 119/36 99 01/09/18 10:00 67 12 123/39 99 01/09/18 09:34 12 102/37 98 01/09/18 09:00 67 13 85/40 100 Intake and Output 01/09/18 01/10/18 01/10/18 23:59 07:59 15:59 Intake Total 254 / 254 354 / 354 Output Total 500 / 500 1400 / 1400 Balance -246 / -246 -1046 / -1046 Intake: IV Fluids 254 / 254 354 / 354 Levophed 4 MG In Dextrose 5% 254 / 254 254 / 254 250 ML @ 5 MCG/MIN 19.05 mls/hr IVC CONT CAITLIN Rx#:[id number] Definity 1.3 ML In Normal 0 / 0 Saline Flush 8.7 ML @ 1200 mls/ hr IVP ONCE ONE Rx#:[id number] Zosyn 3.375 GM In 0.9 % Sodium 100 / 100 Chloride (Mini-Bag +) 100 ML @ 25 mls/hr IVPB Q12H CAITLIN Rx#: [id number] Output: Catheter 500 / 500 1400 / 1400 Other: Weight 112.3 kg Blood Glucose* 190 174 - General Appearance General appearance: Present: well-developed, well-nourished, appears started age , obese Respiratory: Present: clear Cardiology: Present: edema (2+ BLE), regular rate, regular rhythm Gastrointestinal: Present: normoactive bowel sounds Integumentary: Present: warm and dry Neurologic: Present: no focal deficit, alert and oriented x3 Psychiatric: Present: mood/affect appropriate, cooperative - Lab 01/10/18 05:16 01/10/18 05:16 Most recent lab results ABG pH 7.32 pH Units (7.32-7.45) 01/09/18 09:47 ABG pCO2 58 mmHg (35-45) H 01/09/18 09:47 ABG pO2 97 mmHg (85-104) 01/09/18 09:47 ABG HCO3 30 mEq/L (21-27) H 01/09/18 09:47 ABG O2 Saturation 97 % (95-98) 01/09/18 09:47 Calcium 8.2 mg/dL (8.6-10.3) L 01/10/18 05:16 Phosphorus 7.0 mg/dL (2.7-4.5) H 01/08/18 14:13 Magnesium 2.7 mg/dL (1.6-2.6) H 01/08/18 14:13 Urine Creatinine 74 mg/dL 01/09/18 13:27 Urine Sodium 20.1 mEq/L 01/09/18 13:27 Consult Discharge Plan - Plan Instructions: Diabetes Mellitus Type 2 in Adults (DC), Chronic Obstructive Pulmonary Disease (DC), Chronic Hypertension (DC) Referrals: Aayush Chase MD [Primary Care Provider] - Prescriptions: clonazePAM [Klonopin] 0.5 mg PO BID PRN 2 Days #4 tablet PRN Reason: Anxiety <Charlene Chopra - Last Filed: 02/07/18 22:41> Date of Encounter: 01/10/18 - Assessment and Plan (1) MARIFER (acute kidney injury) Status: Acute (2) CKD (chronic kidney disease) stage 3, GFR 30-59 ml/min Status: Deleted (3) Acute on chronic respiratory failure with hypoxia and hypercapnia Status: Resolved Objective - Lab 01/18/18 18:40 01/18/18 04:07 Most recent lab results ABG pH 7.43 pH Units (7.32-7.45) 01/16/18 10:44 ABG pCO2 70 mmHg (35-45) H* 01/16/18 10:44 ABG pO2 93 mmHg (85-104) 01/16/18 10:44 ABG HCO3 46 mEq/L (21-27) H 01/16/18 10:44 ABG O2 Saturation 97 % (95-98) 01/16/18 10:44 Calcium 8.8 mg/dL (8.6-10.3) 01/18/18 04:07 Phosphorus 2.4 mg/dL (2.7-4.5) L 01/12/18 08:20 Magnesium 1.4 mg/dL (1.6-2.6) L 01/18/18 04:07 Urine Creatinine 74 mg/dL 01/09/18 13:27 Urine Sodium 20.1 mEq/L 01/09/18 13:27 - Attending Attestation I examined this patient and my medical decision-making was reviewed with the Resident Physician. I agree with the documented findings, disposition and treatment plan as described except to the extent set forth below. Pt seen and examined feeling better today. SCr improving at 2.79, GFR 17 etilogy of MARIFER appears to be multifactorial with pre-renal state, mild rhabdo and hyperuricemia due to pre-renal state. Encouraged po fluids given edema. Gentle IVF may also be helpful. 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
[2018-01-10] MEDS: Pantoprazole 40 MG VIAL IVP SCH (09:44)
--- NOTE | 2018-01-10 09:56 | Pulmonology Progress Note ---
<Halley Mueller - Last Filed: 01/10/18 11:46> Date of Encounter: 01/10/18 Time of Encounter: 09:30 Assessment and Plan (1) Septic shock Current Visit: Yes Status: Acute Hypotension resistant to fluid resuscitation. Levophed initiated. Urine analysis suspicious for UTI, pending culture. Vancomycin, Zosyn, and fluconazole initiated. Afebrile, mild leukocytosis. Lactic acid wnl. Currently organism is unspecified but cultures pending. Cortisol level within normal limits. Arterial line placed in right UE. Urine culture positive for years, suptum culture pending, blood cultures negative. Currently still on Levophed at a rate of 10mcg/min. Plan: - Continue Levophed as needed - continue Zosyn (day 3), D/c fluconazole, d/c Vancomycin (day 3) - respiratory panel pending - arterial line placed (2) Acute on chronic respiratory failure with hypoxia and hypercapnia Current Visit: Yes Status: Acute acute on chronic resp failure 2/2 COPD exacerbation. Hx of COPD and asthma. Oxygen dependent at home. Patient is chronically hypercapnic. Recently weaned off steroids from previous hospital admission. CXR negative for acute processes. Plan: - continue BIPAP with intermittent NC as tolerated - ABG repeat today - DuoNebs Q4H prn - Diet: clears with NC as tolerated (3) Renal failure (ARF), acute on chronic Current Visit: Yes Status: Acute MARIFER with a hx of CKD III. Initial creatinine = 4.40. Patient on 12/30 had a vancomycin trough of 40 and creatinine began to rise right before discharge, therefore vancomycin toxicity could be contributing along with septic shock causing hypoperfusion. Urine sodium 20.1, Creatinine 74, eosinpohil 0, CK= 1091. US kidneys wnl. Creatinine improving today Plan: - stopped Vanco - Nephrology consulted appreciate recommendations Qualifiers: Acute renal failure type: unspecified Chronic kidney disease stage: unspecified stage Qualified Code(s): N17.9 - Acute kidney failure, unspecified ; N18.9 - Chronic kidney disease, unspecified; N18.9 - Chronic kidney disease, unspecified (4) Urinary tract infection Current Visit: Yes Status: Acute UA leuk esterase moderate, WBC TNTC. Urine culture showed yeast. Plan: - continuing Zosyn Qualifiers: Urinary tract infection type: acute cystitis Hematuria presence: without hematuria Qualified Code(s): N30.00 - Acute cystitis without hematuria (5) Diabetes mellitus type 2 in obese Current Visit: Yes Status: Acute Episodes of hypoglycemia initially. Currently glucose is between 140-190s. Will begin clear liquid diet. Plan: - Low SSI - Diet: clears, sugar free (6) Anemia in chronic kidney disease Current Visit: Yes Status: Acute baseline hemoglobin around 9. Currently stable. Will continue to monitor. No signs of bleeding. Qualifiers: Chronic kidney disease stage: stage 3 (moderate) Qualified Code(s): N18.3 - Chronic kidney disease, stage 3 (moderate); D63.1 - Anemia in chronic kidney disease; D63.1 - Anemia in chronic kidney disease (7) Diastolic CHF Current Visit: No Status: Acute XcG=743 but CXR negative for acute processes. Previous Echo 07/18/17 which showed EF 65% moderate left ventricular diastolic dysfunction, mild aortic sclerosis, severe pulmonary hypertension. Echo 01/09/18 showed Ef 65%, Moderate left ventricular diastolic dysfunction, RV dilated. Will continue to monitor strict I&Os. Qualifiers: Heart failure chronicity: acute on chronic Qualified Code(s): I50.33 - Acute on chronic diastolic (congestive) heart failure (8) Elevated troponin Current Visit: Yes Status: Acute Troponin stable. Likely 2/2 to demand ischemia. (9) Obesity hypoventilation syndrome Current Visit: No Status: Acute (10) DVT prophylaxis Current Visit: No Status: Acute Heparin SQ (11) Goals of care, counseling/discussion Current Visit: Yes Status: Acute Family states that patient signed papers for DNR-cc but she was not altered when she signed these. They believe that really she desires to be full code as she has expressed to them she wants to live, per ED note/conversation with Dr. Tristan. Therefore code was changed to full code. Subjective Principal diagnosis: acute on chronic resp failure Interval history: Ms. Cox is a 62-year-old female past medical history of diabetes type 2, COPD , asthma, hypertension and CKD stage III presented to the ED from the detention with altered mental status and was found to be hypoglycemic, acute on chronic respiratory failure, septic shock 2/2 UTI, and MARIFER. Today, patient is responding to questions appropriately. She is tolerating BIPAP well without anxiety. Patient states that she overall feels better from yesterday. She states that her breathing has improved. She denies chest, pain, HOUGH, abdominal pain, N/V, and dizziness. Objective PUL Vital signs: Last Vital Signs Temp 98.4 F 01/10/18 07:30 Pulse 70 01/10/18 09:00 Resp 15 01/10/18 09:00 BP 97/64 01/10/18 09:00 Pulse Ox 98 01/10/18 09:00 Constitutional:esting comfortably but easily arousable, myoclonic jerks when sleeping Head: Normocephalic, atraumatic Heart: regular rhythm, regular rate, no murmurs Lungs: +rhonchi heard with BIPAP 30% Abdomen: Soft, nondistended, nontender, no guarding or rigidity. Extremities: painful to touch legs will light touch, no edema, radial pulse +2/4 , capillary refill <2sec. Skin: Skin warm and dry, no lesions, no jaundice Neurologic: responding appropriately to questions, oriented with A&O x4, strenth 5/5 in UE bilaterally, strength 4/5 in lower extremities bilaterally Line: arterial line, RIJ Results - Laboratory Findings CBC and BMP: 01/10/18 05:16 01/10/18 05:16 ABG ABG pH 7.32 pH Units (7.32-7.45) 01/09/18 09:47 ABG pCO2 58 mmHg (35-45) H 01/09/18 09:47 ABG pO2 97 mmHg (85-104) 01/09/18 09:47 ABG O2 Saturation 97 % (95-98) 01/09/18 09:47 PT/INR, D-dimer PT 10.3 Seconds (9.4-12.1) 01/08/18 20:42 Abnormal lab findings: Abnormal lab results RBC 2.60 M/mcL (3.82-4.97) L 01/10/18 05:16 Hgb 7.8 g/dL (11.5-15.4) L 01/10/18 05:16 Hct 25.9 % (35.3-44.9) L 01/10/18 05:16 MCHC 30.1 g/dL (31.6-35.5) L 01/10/18 05:16 RDW 15.4 % (11.5-14.5) H 01/10/18 05:16 Plt Count 102 K/mcL (140-400) L 01/10/18 05:16 MPV 12.6 fL (9.4-12.4) H 01/10/18 05:16 APTT 22.5 Seconds (26.0-36.0) L 01/08/18 20:42 ABG pCO2 58 mmHg (35-45) H 01/09/18 09:47 ABG HCO3 30 mEq/L (21-27) H 01/09/18 09:47 ABG Total CO2 32 mEq/L (20-26) H 01/09/18 09:47 Carbon Dioxide 33 mEq/L (23-29) H 01/10/18 05:16 BUN 88 mg/dL (8-23) H 01/10/18 05:16 Creatinine 2.79 mg/dL (0.60-1.20) H 01/10/18 05:16 Est GFR ( Amer) 21 (> 60) L 01/10/18 05:16 Est GFR (Non-Af Amer) 17 (> 60) L 01/10/18 05:16 BUN/Creatinine Ratio 32 (6-26) H 01/10/18 05:16 Glucose 249 mg/dL (70-105) H 01/10/18 05:16 POC Glucose 174 mg/dL (58-89) H 01/10/18 07:12 Calculated Osmolality 319 (280-300) H 01/10/18 05:16 Uric Acid 11.9 mg/dL (2.3-7.6) H 01/09/18 10:40 Calcium 8.2 mg/dL (8.6-10.3) L 01/10/18 05:16 Phosphorus 7.0 mg/dL (2.7-4.5) H 01/08/18 14:13 Magnesium 2.7 mg/dL (1.6-2.6) H 01/08/18 14:13 Creatine Kinase 1091 Units/L (30-223) H 01/09/18 10:40 Troponin I 0.04 ng/mL (< 0.04) H* 01/09/18 00:50 B-Natriuretic Peptide 910 pg/mL (Less than 100) H 01/08/18 14:13 Serum Total Protein 5.9 g/dL (6.4-8.9) L 01/08/18 20:42 Albumin 3.4 g/dL (3.5-5.7) L 01/08/18 20:42 Urine Clarity Cloudy (Clear) A 01/08/18 14:36 Urine Bilirubin Small (Negative) H 01/08/18 14:36 Ur Leukocyte Esterase Moderate (Negative) H 01/08/18 14:36 Urine Microscopic WBC TNTC per hpf (0-3) H 01/08/18 14:36 Ur Squamous Epith Cells Many per lpf (None-Few) H 01/08/18 14:36 Urine Yeast Many per hpf (None Seen) H 01/08/18 14:36 - Clinical Findings Intake & Output: Intake & Output 01/09/18 01/10/18 01/10/18 23:59 07:59 15:59 Intake Total 254 / 254 354 / 354 100 / 100 Output Total 500 / 500 1400 / 1400 Balance -246 / -246 -1046 / -1046 100 / 100 Weight 112.3 kg Consult Discharge Plan - Plan Referrals: Aayush Chase MD [Primary Care Provider] - <Beau Tristan W - Last Filed: 01/10/18 12:18> Date of Encounter: 01/10/18 Objective PUL Vital signs: Last Vital Signs Temp 98.4 F 01/10/18 07:30 Pulse 70 01/10/18 09:00 Resp 15 01/10/18 09:00 BP 97/64 01/10/18 09:00 Pulse Ox 98 01/10/18 09:00 Results - Laboratory Findings CBC and BMP: 01/10/18 05:16 01/10/18 05:16 ABG ABG pH 7.32 pH Units (7.32-7.45) 01/09/18 09:47 ABG pCO2 58 mmHg (35-45) H 01/09/18 09:47 ABG pO2 97 mmHg (85-104) 01/09/18 09:47 ABG O2 Saturation 97 % (95-98) 01/09/18 09:47 PT/INR, D-dimer PT 10.3 Seconds (9.4-12.1) 01/08/18 20:42 Abnormal lab findings: Abnormal lab results RBC 2.60 M/mcL (3.82-4.97) L 01/10/18 05:16 Hgb 7.8 g/dL (11.5-15.4) L 01/10/18 05:16 Hct 25.9 % (35.3-44.9) L 01/10/18 05:16 MCHC 30.1 g/dL (31.6-35.5) L 01/10/18 05:16 RDW 15.4 % (11.5-14.5) H 01/10/18 05:16 Plt Count 102 K/mcL (140-400) L 01/10/18 05:16 MPV 12.6 fL (9.4-12.4) H 01/10/18 05:16 APTT 22.5 Seconds (26.0-36.0) L 01/08/18 20:42 ABG pCO2 58 mmHg (35-45) H 01/09/18 09:47 ABG HCO3 30 mEq/L (21-27) H 01/09/18 09:47 ABG Total CO2 32 mEq/L (20-26) H 01/09/18 09:47 Carbon Dioxide 33 mEq/L (23-29) H 01/10/18 05:16 BUN 88 mg/dL (8-23) H 01/10/18 05:16 Creatinine 2.79 mg/dL (0.60-1.20) H 01/10/18 05:16 Est GFR ( Amer) 21 (> 60) L 01/10/18 05:16 Est GFR (Non-Af Amer) 17 (> 60) L 01/10/18 05:16 BUN/Creatinine Ratio 32 (6-26) H 01/10/18 05:16 Glucose 249 mg/dL (70-105) H 01/10/18 05:16 POC Glucose 174 mg/dL (58-89) H 01/10/18 07:12 Calculated Osmolality 319 (280-300) H 01/10/18 05:16 Uric Acid 11.9 mg/dL (2.3-7.6) H 01/09/18 10:40 Calcium 8.2 mg/dL (8.6-10.3) L 01/10/18 05:16 Phosphorus 7.0 mg/dL (2.7-4.5) H 01/08/18 14:13 Magnesium 2.7 mg/dL (1.6-2.6) H 01/08/18 14:13 Creatine Kinase 1091 Units/L (30-223) H 01/09/18 10:40 Troponin I 0.04 ng/mL (< 0.04) H* 01/09/18 00:50 B-Natriuretic Peptide 910 pg/mL (Less than 100) H 01/08/18 14:13 Serum Total Protein 5.9 g/dL (6.4-8.9) L 01/08/18 20:42 Albumin 3.4 g/dL (3.5-5.7) L 01/08/18 20:42 Urine Clarity Cloudy (Clear) A 01/08/18 14:36 Urine Bilirubin Small (Negative) H 01/08/18 14:36 Ur Leukocyte Esterase Moderate (Negative) H 01/08/18 14:36 Urine Microscopic WBC TNTC per hpf (0-3) H 01/08/18 14:36 Ur Squamous Epith Cells Many per lpf (None-Few) H 01/08/18 14:36 Urine Yeast Many per hpf (None Seen) H 01/08/18 14:36 - Clinical Findings Intake & Output: Intake & Output 01/09/18 01/10/18 01/10/18 23:59 07:59 15:59 Intake Total 254 / 254 354 / 354 100 / 100 Output Total 500 / 500 1400 / 1400 Balance -246 / -246 -1046 / -1046 100 / 100 Weight 112.3 kg - Attending Attestation I examined this patient and my medical decision-making was reviewed with the Resident Physician. I agree with the documented findings, disposition and treatment plan as described except to the extent set forth below. We independently had [id number] contact with the patient Patient seen and examined at bedside Labs, radiology, chart personally reviewed. Management was reviewed during multidisciplinary critical care rounds. SOCIAL SERVICE ASSISTANT: Much more awake and alert today able to follow commands although she remains somnolent at times she has some myoclonic jerking worse when she is sleeping which is a chronic issue for her Pulm: Acute on chronic hypoxic hypercarbic respiratory failure responding to AVAPS NIV. We will check ABG and reassuring okay to give her breaks off NIV today otherwise continue supplemental oxygen to keep saturation greater than 88% Cards: Hypotension likely secondary to sepsis she remains on vasopressor to keep mean arterial pressure greater than 60; echocardiogram showed preserved ejection fraction however she has significant diastolic dysfunction and RV is dilated but functioning normally FEN-GI: Once off noninvasive ventilation okay for sips of clears after bedside speech swallow eval Renal: Acute kidney injury is improving urine output is picking up I think this is related to volume resuscitation and vasopressor effect of increasing blood flow to the kidney. Renal ultrasound otherwise unremarkable nephrology following ID: She is on broad-spectrum antibiotics for sepsis of unclear etiology but thought pneumonia versus UTI cultures pending Heme/Onc: DVT prophylaxis per routine Endo: Glucose Monitored Integ/MSK: Skin Care per routine ICU Nursing Protocol to prevent ulcers. Lines: All lines examined without evidence of infection : Dispo: Remain in ICU CODE: Full code
[2018-01-10 12:13] LABS: Folate 11.9 ng/mL (3.0-16.0)
[2018-01-10 12:21] LABS: ABG Base Excess -1 mEq/L (-2 to 3); ABG HCO3 23 mEq/L (21-27); ABG Oxygen Saturation 100 % (95-98); ABG PCO2 30 mmHg (35-45); ABG PH 7.49 pH Units (7.32-7.45); ABG PO2 160 mmHg (85-104); ABG TCO2 24 mEq/L (20-26); Blood Gas Modality PRVC; Blood Gas PEEP 6 cm H2O; Blood Gas VT 600 cc
[2018-01-10 12:53] LABS: % Iron Saturation 5 % (15-50); Iron 13 mcg/dL (50-170); Transferrin 171 mg/dL (203-362)
[2018-01-10 19:45] LABS: Adenovirus Not Detected (Not Detect); Bordetella Pertussis Not Detected (Not Detect); Chlamydophila pneumoniae Not Detected (Not Detect); Coronavirus 229E Not Detected (Not Detect); Coronavirus HKU1 Not Detected (Not Detect); Coronavirus NL63 Not Detected (Not Detect); Coronavirus OC43 Not Detected (Not Detect); Human Metapneumovirus Not Detected (Not Detect); Human Rhinovirus/Enterovirus Not Detected (Not Detect); Influenza A Subtype 2009 H1 Not Detected (Not Detect); Influenza A Untypeable Not Detected (Not Detect); Influenza B Not Detected (Not Detect); Mycoplasma pneumoniae Not Detected (Not Detect); Parainfluenza Virus 1 Not Detected (Not Detect); Parainfluenza Virus 2 Not Detected (Not Detect); Parainfluenza Virus 3 Not Detected (Not Detect); Parainfluenza Virus 4 Not Detected (Not Detect); Respiratory Syncytial Virus Not Detected (Not Detect)
[2018-01-11] MEDS: Norepinephrine 4 MG in D5% in Water 250 ML IVC SCH ×2 (01:23→11:22)
[2018-01-11] MEDS: Piperacillin/Tazobactam 3.375 GM in 0.9 % Sodium Chloride Mini Bag 100 ML IVPB SCH (04:40)
[2018-01-11] MEDS: *HR* Heparin 5,000 UNIT/ML VIAL SQ SCH ×3 (04:41→20:48)
[2018-01-11 05:02] LABS: Basophils % 0.2 %; Hematocrit 26.3 % (35.3-44.9); Hemoglobin 7.9 g/dL (11.5-15.4); Immature Granulocytes % 0.3 % (0-4); Mean Corpuscular Hemoglobin 30.3 pg (28.0-33.3); Mean Corpuscular Volume 100.8 fL (83.0-100.0); Red Blood Count 2.61 M/mcL (3.82-4.97)
[2018-01-11 05:03] LABS: Immature Platelets 6.1 % (1.1-6.1); Lymphocytes # 0.8 K/mcL (0.6-4.6); Lymphocytes % 8.9 %; Monocytes # 0.8 K/mcL (0.0-1.3); Monocytes % 8.1 %; Neutrophils # 7.7 K/mcL (1.6-8.9); Red Cell Distribution Width 15.7 % (11.5-14.5); Segmented Neutrophils % 82.5 %
[2018-01-11 05:04] LABS: Platelet Count 99 K/mcL (140-400)
[2018-01-11 05:18] LABS: Calcium 8.8 mg/dL (8.6-10.3); Potassium 4.7 mEq/L (3.5-5.1)
[2018-01-11] MEDS ORDERED: Cyanocobalamin (B-12) 1,000 MCG/ML VIAL IM ONE (08:09)
--- NOTE | 2018-01-11 08:15 | Nephrology Progress Note ---
<James Cotton - Last Filed: 01/11/18 12:30> Date of Encounter: 01/11/18 Time of Encounter: 08:12 - Assessment and Plan (1) MARIFER (acute kidney injury) Status: Acute MARIFER on CKD, patient follows with Dr. Ferrer. Cr on admission was 4.36. FENa 0.7% suggestive of Pre-renal causes. MARIFER is most likely due to recent administration of nephrotoxic medications including vancomycin and fluoroquinolones. Patient had a mild elevation in CK 1091 which technically is diagnostic for Rhabdo but unlikely main contributor to MARIFER. Patient recently had a fall, and had multiple bruising on her feet which is likely explanation for elevation in CK. Uric Acid is elevated at 11.9. Cr continues to improve with hydration. Will continue to monitor patient's renal function. hgb is stable at ~7.9. B12 was mildly decreased and patient has iron deficiency anemia. Occult was positive, discussed patient with primary team, may require GI consult. This was discussed with resident. - B12 and Fe replaced. - Avoid nephrotoxins - strict I/O - renal dosing for medications - renal diet (2) Anemia Status: Chronic see above Qualifiers: Anemia type: unspecified type Qualified Code(s): D64.9 - Anemia, unspecified (3) COPD (chronic obstructive pulmonary disease) Status: Acute per critical care team Qualifiers: COPD type: COPD with acute exacerbation Qualified Code(s): J44.1 - Chronic obstructive pulmonary disease with (acute) exacerbation (4) Morbid obesity Status: Chronic per critical care team (5) AIMEE (obstructive sleep apnea) Status: Acute per critical care team (6) Urinary tract infection Status: Acute per critical care team Qualifiers: Urinary tract infection type: acute cystitis Hematuria presence: without hematuria Qualified Code(s): N30.00 - Acute cystitis without hematuria Subjective Principal diagnosis: acute on chronic resp failure Interval history: Ms Cox is a 62 yo F w/ pmh of DM, HTN, COPD w/ CPAP noncompliance, obesity presented with AMS presumed 2/2 UTI. Nephrology is consulted for MARIFER on CKD. Patient was seen and examined today. No events overnight, and no new complaints. Patient denies n/v/f/c/cp. Objective - Vital Signs Vital signs: Vital Signs Temp Pulse Resp BP Pulse Ox 01/11/18 07:51 98.3 F 01/11/18 06:00 87 24 99/61 100 01/11/18 05:00 87 22 114/77 96 01/11/18 04:12 99.0 F 01/11/18 04:00 84 14 120/58 99 01/11/18 03:00 79 18 118/52 99 01/11/18 02:00 80 18 115/51 100 01/11/18 01:00 82 16 115/73 97 01/11/18 00:00 83 15 121/46 100 01/10/18 23:50 83 01/10/18 23:35 99.5 F 79 14 116/58 99 01/10/18 23:12 14 127/45 99 01/10/18 22:00 80 15 118/37 97 01/10/18 21:00 72 16 108/86 97 01/10/18 20:06 85 01/10/18 20:04 84 23 98/41 96 01/10/18 19:57 85 24 101/42 98 01/10/18 19:24 98.4 F 01/10/18 18:00 84 22 97/49 97 01/10/18 17:00 78 24 106/40 99 01/10/18 16:00 82 22 81/54 98 01/10/18 15:00 98.7 F 85 24 71/59 98 01/10/18 14:00 79 24 111/58 98 01/10/18 13:00 75 20 115/44 98 01/10/18 12:00 73 20 120/54 98 01/10/18 11:00 98.9 F 67 21 103/68 96 01/10/18 10:00 70 20 93/63 98 01/10/18 09:00 70 15 97/64 98 01/10/18 08:13 11 95/60 97 Intake and Output 01/10/18 01/11/18 01/11/18 23:59 07:59 15:59 Intake Total 354 / 354 254 / 254 Output Total 650 / 650 700 / 700 Balance -296 / -296 -446 / -446 Intake: IV Fluids 354 / 354 254 / 254 Levophed 4 MG In Dextrose 5% 254 / 254 254 / 254 250 ML @ 5 MCG/MIN 19.05 mls/hr IVC CONT [facility] Rx#:[id number] Zosyn 3.375 GM In 0.9 % Sodium 100 / 100 Chloride (Mini-Bag +) 100 ML @ 25 mls/hr IVPB Q12H [facility] Rx#: [id number] Oral 0 / 0 Output: Catheter 650 / 650 700 / 700 Other: Stool Size Moderate Stool Consistency soft Stool Color Brown # Bowel Movements 0 1 Weight 111.6 kg Blood Glucose* 141 153 Patient Weight 01/11/18 23:59 Weight 111.6 kg - General Appearance General appearance: Present: appears started age, obese Neck: Present: supple Respiratory: Present: clear Cardiology: Present: regular rate, regular rhythm Gastrointestinal: Present: hypoactive bowel sounds Integumentary: Present: warm and dry Neurologic: Present: alert and oriented x3 Psychiatric: Present: mood/affect appropriate, cooperative - Lab 01/11/18 04:04 01/11/18 04:04 Most recent lab results ABG pH 7.49 pH Units (7.32-7.45) H 01/10/18 12:16 ABG pCO2 30 mmHg (35-45) L 01/10/18 12:16 ABG pO2 160 mmHg (85-104) H 01/10/18 12:16 ABG HCO3 23 mEq/L (21-27) 01/10/18 12:16 ABG O2 Saturation 100 % (95-98) H 01/10/18 12:16 Calcium 8.8 mg/dL (8.6-10.3) 01/11/18 04:04 Phosphorus 7.0 mg/dL (2.7-4.5) H 01/08/18 14:13 Magnesium 2.7 mg/dL (1.6-2.6) H 01/08/18 14:13 Urine Creatinine 74 mg/dL 01/09/18 13:27 Urine Sodium 20.1 mEq/L 01/09/18 13:27 Consult Discharge Plan - Plan Instructions: Diabetes Mellitus Type 2 in Adults (DC), Chronic Obstructive Pulmonary Disease (DC), Chronic Hypertension (DC) Referrals: Aayush Chase MD [Primary Care Provider] - Prescriptions: clonazePAM [Klonopin] 0.5 mg PO BID PRN 2 Days #4 tablet PRN Reason: Anxiety <Charlene Chopra - Last Filed: 02/09/18 22:38> Date of Encounter: 01/11/18 - Assessment and Plan (1) MARIFER (acute kidney injury) Status: Acute (2) CKD (chronic kidney disease) stage 3, GFR 30-59 ml/min Status: Deleted (3) Acute on chronic respiratory failure with hypoxia and hypercapnia Status: Resolved Objective - Lab 01/18/18 18:40 01/18/18 04:07 Most recent lab results ABG pH 7.43 pH Units (7.32-7.45) 01/16/18 10:44 ABG pCO2 70 mmHg (35-45) H* 01/16/18 10:44 ABG pO2 93 mmHg (85-104) 01/16/18 10:44 ABG HCO3 46 mEq/L (21-27) H 01/16/18 10:44 ABG O2 Saturation 97 % (95-98) 01/16/18 10:44 Calcium 8.8 mg/dL (8.6-10.3) 01/18/18 04:07 Phosphorus 2.4 mg/dL (2.7-4.5) L 01/12/18 08:20 Magnesium 1.4 mg/dL (1.6-2.6) L 01/18/18 04:07 Urine Creatinine 74 mg/dL 01/09/18 13:27 Urine Sodium 20.1 mEq/L 01/09/18 13:27 - Attending Attestation I examined this patient and my medical decision-making was reviewed with the Resident Physician. I agree with the documented findings, disposition and treatment plan as described except to the extent set forth below. Pt seen and examined. SCr improving at 1.61, GFR 49 with fluids, will continue. Uric acid noted elevated initially consistent with pre-renal state. Anemia definitely contributing, primary team to workup etiology. Continue to avoid nephrotoxins if possible.
[2018-01-11] MEDS: Pantoprazole 40 MG VIAL IVP SCH (08:36)
[2018-01-11] MEDS: Insulin LISPRO 300 UNITS/3 ML VIAL SQ SCH ×3 (08:36→15:18)
--- NOTE | 2018-01-11 09:08 | Pulmonology Progress Note ---
<Halley Mueller - Last Filed: 01/11/18 11:39> Date of Encounter: 01/11/18 Time of Encounter: 09:08 Assessment and Plan (1) Hypotension Current Visit: Yes Status: Acute Hypotension resistant to fluid resuscitation. Levophed initiated. No infectious cause identified but WBC elevated which caused an inflammatory response where cytokines release could be causing the persistent hypotension. R/o cardiac cause. Cortisol level within normal limits. Arterial line placed in right UE. Currently still on Levophed at a rate of 8mcg/min. Plan: - Continue Levophed as needed - start Cefazolin 1g Q12H, D/c fluconazole, d/c Vancomycin (day 3) vZosyn (day 3) - respiratory panel neg - arterial line placed Qualifiers: Hypotension type: unspecified hypotension type Qualified Code(s): I95.9 - Hypotension, unspecified (2) Acute on chronic respiratory failure with hypoxia and hypercapnia Current Visit: Yes Status: Acute acute on chronic resp failure 2/2 COPD exacerbation. Hx of COPD and asthma. Oxygen dependent at home. Patient is chronically hypercapnic. Recently weaned off steroids from previous hospital admission. CXR negative for acute processes. Plan: - continue BIPAP with intermittent NC as tolerated - ABG repeat today - DuoNebs Q4H prn - Diet: clears with NC as tolerated (3) Renal failure (ARF), acute on chronic Current Visit: Yes Status: Acute MARIFER with a hx of CKD III. Initial creatinine = 4.40. Patient on 12/30 had a vancomycin trough of 40 and creatinine began to rise right before discharge, therefore vancomycin toxicity could be contributing along with septic shock causing hypoperfusion. Urine sodium 20.1, Creatinine 74, eosinpohil 0, CK= 1091. US kidneys wnl. Creatinine continuing to improve. Plan: - stopped Vanco - Nephrology consulted appreciate recommendations Qualifiers: Acute renal failure type: unspecified Chronic kidney disease stage: unspecified stage Qualified Code(s): N17.9 - Acute kidney failure, unspecified ; N18.9 - Chronic kidney disease, unspecified; N18.9 - Chronic kidney disease, unspecified (4) Urinary tract infection Current Visit: Yes Status: Acute UA leuk esterase moderate, WBC TNTC. Urine culture showed yeast. Qualifiers: Urinary tract infection type: acute cystitis Hematuria presence: without hematuria Qualified Code(s): N30.00 - Acute cystitis without hematuria (5) Diabetes mellitus type 2 in obese Current Visit: Yes Status: Acute Episodes of hypoglycemia initially. Currently glucose is between 140-190s. Will begin regular diet Plan: - Low SSI - Diet: Regular diet (6) Anemia in chronic kidney disease Current Visit: Yes Status: Acute Baseline hemoglobin around 9. Normocytic anemia. Iron panel obtained iron deficiency vs. chronic disease anemia with mild Vit B 12 deficiency. Hemoglobin stable. Hemoccult positive. Discussed with patient and she denies hemoptysis, hematochezia, melena, abdominal pain, hx of peptic ulcers. Plan: - iron supplementation - Vitamin B12 supplements - Consider consulting GI later in hospital stay for possible slow GI bleed. Qualifiers: Chronic kidney disease stage: stage 3 (moderate) Qualified Code(s): N18.3 - Chronic kidney disease, stage 3 (moderate); D63.1 - Anemia in chronic kidney disease; D63.1 - Anemia in chronic kidney disease (7) Diastolic CHF Current Visit: No Status: Acute JoV=052 but CXR negative for acute processes. Previous Echo 07/18/17 which showed EF 65% moderate left ventricular diastolic dysfunction, mild aortic sclerosis, severe pulmonary hypertension. Echo 01/09/18 showed Ef 65%, Moderate left ventricular diastolic dysfunction, RV dilated. Will continue to monitor strict I&Os. Qualifiers: Heart failure chronicity: acute on chronic Qualified Code(s): I50.33 - Acute on chronic diastolic (congestive) heart failure (8) Elevated troponin Current Visit: Yes Status: Acute Troponin stable. Likely 2/2 to demand ischemia. (9) Obesity hypoventilation syndrome Current Visit: No Status: Acute (10) DVT prophylaxis Current Visit: No Status: Acute Heparin SQ (11) Goals of care, counseling/discussion Current Visit: Yes Status: Acute Family states that patient signed papers for DNR-cc but she was not altered when she signed these. They believe that really she desires to be full code as she has expressed to them she wants to live, per ED note/conversation with Dr. Tristan. Therefore code was changed to full code. Subjective Principal diagnosis: acute on chronic resp failure Interval history: Ms. Cox is a 62-year-old female past medical history of diabetes type 2, COPD , asthma, hypertension and CKD stage III presented to the ED from the assisted with altered mental status and was found to be hypoglycemic, acute on chronic respiratory failure, septic shock 2/2 UTI, and MARIFER. Today, patient is responding to questions appropriately. She is tolerating NC and BIPAP without significant anxiety. Patient states that she is feeling better than yesterday. She did not eat yesterday because she was not hungry. She denies chest, pain, HOUGH, abdominal pain, N/V, and dizziness. Reported that fall was before 12/21. Objective PUL Vital signs: Last Vital Signs Temp 98.3 F 01/11/18 07:51 Pulse 87 01/11/18 08:00 Resp 22 01/11/18 08:00 BP 95/61 01/11/18 08:00 Pulse Ox 98 01/11/18 08:00 Constitutional:resting comfortably but easily arousable, myoclonic jerks when sleeping Head: Normocephalic, atraumatic Heart: regular rhythm, regular rate, no murmurs Lungs: wheezing on NC 3L Abdomen: Soft, nondistended, nontender, BS present, no guarding or rigidity. Extremities: painful to touch legs will light touch, no edema, radial pulse +2/4 , capillary refill <2sec. Skin: Skin warm and dry, no lesions, no jaundice Neurologic: responding appropriately to questions, oriented, strenth 5/5 in UE bilaterally, strength 4/5 in lower extremities bilaterally, weak overall Line: arterial line, RIJ Results - Laboratory Findings CBC and BMP: 01/11/18 04:04 01/11/18 04:04 ABG ABG pH 7.49 pH Units (7.32-7.45) H 01/10/18 12:16 ABG pCO2 30 mmHg (35-45) L 01/10/18 12:16 ABG pO2 160 mmHg (85-104) H 01/10/18 12:16 ABG O2 Saturation 100 % (95-98) H 01/10/18 12:16 PT/INR, D-dimer PT 10.3 Seconds (9.4-12.1) 01/08/18 20:42 Abnormal lab findings: Abnormal lab results RBC 2.61 M/mcL (3.82-4.97) L 01/11/18 04:04 Hgb 7.9 g/dL (11.5-15.4) L 01/11/18 04:04 Hct 26.3 % (35.3-44.9) L 01/11/18 04:04 MCV 100.8 fL (83.0-100.0) H 01/11/18 04:04 MCHC 30.0 g/dL (31.6-35.5) L 01/11/18 04:04 RDW 15.7 % (11.5-14.5) H 01/11/18 04:04 Plt Count 99 K/mcL (140-400) L 01/11/18 04:04 APTT 22.5 Seconds (26.0-36.0) L 01/08/18 20:42 ABG pH 7.49 pH Units (7.32-7.45) H 01/10/18 12:16 ABG pCO2 30 mmHg (35-45) L 01/10/18 12:16 ABG pO2 160 mmHg (85-104) H 01/10/18 12:16 ABG O2 Saturation 100 % (95-98) H 01/10/18 12:16 Carbon Dioxide 33 mEq/L (23-29) H 01/11/18 04:04 BUN 63 mg/dL (8-23) H 01/11/18 04:04 Creatinine 1.61 mg/dL (0.60-1.20) H 01/11/18 04:04 Est GFR ( Amer) 39 (> 60) L 01/11/18 04:04 Est GFR (Non-Af Amer) 32 (> 60) L 01/11/18 04:04 BUN/Creatinine Ratio 39 (6-26) H 01/11/18 04:04 Glucose 150 mg/dL (70-105) H 01/11/18 04:04 POC Glucose 153 mg/dL (58-89) H 01/11/18 07:15 Calculated Osmolality 315 (280-300) H 01/11/18 04:04 Uric Acid 11.9 mg/dL (2.3-7.6) H 01/09/18 10:40 Phosphorus 7.0 mg/dL (2.7-4.5) H 01/08/18 14:13 Magnesium 2.7 mg/dL (1.6-2.6) H 01/08/18 14:13 Iron 13 mcg/dL (50-170) L 01/10/18 09:02 % Saturation 5 % (15-50) L 01/10/18 09:02 Transferrin 171 mg/dL (203-362) L 01/10/18 09:02 Creatine Kinase 1091 Units/L (30-223) H 01/09/18 10:40 Troponin I 0.04 ng/mL (< 0.04) H* 01/09/18 00:50 B-Natriuretic Peptide 910 pg/mL (Less than 100) H 01/08/18 14:13 Serum Total Protein 5.9 g/dL (6.4-8.9) L 01/08/18 20:42 Albumin 3.4 g/dL (3.5-5.7) L 01/08/18 20:42 Urine Clarity Cloudy (Clear) A 01/08/18 14:36 Urine Bilirubin Small (Negative) H 01/08/18 14:36 Ur Leukocyte Esterase Moderate (Negative) H 01/08/18 14:36 Urine Microscopic WBC TNTC per hpf (0-3) H 01/08/18 14:36 Ur Squamous Epith Cells Many per lpf (None-Few) H 01/08/18 14:36 Urine Yeast Many per hpf (None Seen) H 01/08/18 14:36 Stool Occult Blood Positive (Negative) A 01/11/18 05:45 - Clinical Findings Intake & Output: Intake & Output 01/10/18 01/11/18 01/11/18 23:59 07:59 15:59 Intake Total 354 / 354 254 / 254 100 / 100 Output Total 650 / 650 700 / 700 Balance -296 / -296 -446 / -446 100 / 100 Weight 111.6 kg Consult Discharge Plan - Plan Referrals: Aayush Chase MD [Primary Care Provider] - <Beau Tristan W - Last Filed: 01/11/18 14:14> Date of Encounter: 01/11/18 Objective PUL Vital signs: Last Vital Signs Temp 98.6 F 01/11/18 12:00 Pulse 72 01/11/18 13:00 Resp 16 01/11/18 13:00 BP 105/51 01/11/18 13:00 Pulse Ox 98 01/11/18 13:00 Results - Laboratory Findings CBC and BMP: 01/11/18 04:04 01/11/18 04:04 ABG ABG pH 7.49 pH Units (7.32-7.45) H 01/10/18 12:16 ABG pCO2 30 mmHg (35-45) L 01/10/18 12:16 ABG pO2 160 mmHg (85-104) H 01/10/18 12:16 ABG O2 Saturation 100 % (95-98) H 01/10/18 12:16 PT/INR, D-dimer PT 10.3 Seconds (9.4-12.1) 01/08/18 20:42 Abnormal lab findings: Abnormal lab results RBC 2.61 M/mcL (3.82-4.97) L 01/11/18 04:04 Hgb 7.9 g/dL (11.5-15.4) L 01/11/18 04:04 Hct 26.3 % (35.3-44.9) L 01/11/18 04:04 MCV 100.8 fL (83.0-100.0) H 01/11/18 04:04 MCHC 30.0 g/dL (31.6-35.5) L 01/11/18 04:04 RDW 15.7 % (11.5-14.5) H 01/11/18 04:04 Plt Count 99 K/mcL (140-400) L 01/11/18 04:04 APTT 22.5 Seconds (26.0-36.0) L 01/08/18 20:42 ABG pH 7.49 pH Units (7.32-7.45) H 01/10/18 12:16 ABG pCO2 30 mmHg (35-45) L 01/10/18 12:16 ABG pO2 160 mmHg (85-104) H 01/10/18 12:16 ABG O2 Saturation 100 % (95-98) H 01/10/18 12:16 Carbon Dioxide 33 mEq/L (23-29) H 01/11/18 04:04 BUN 63 mg/dL (8-23) H 01/11/18 04:04 Creatinine 1.61 mg/dL (0.60-1.20) H 01/11/18 04:04 Est GFR ( Amer) 39 (> 60) L 01/11/18 04:04 Est GFR (Non-Af Amer) 32 (> 60) L 01/11/18 04:04 BUN/Creatinine Ratio 39 (6-26) H 01/11/18 04:04 Glucose 150 mg/dL (70-105) H 01/11/18 04:04 POC Glucose 161 mg/dL (70-99) H 01/11/18 11:23 Calculated Osmolality 315 (280-300) H 01/11/18 04:04 Uric Acid 11.9 mg/dL (2.3-7.6) H 01/09/18 10:40 Phosphorus 7.0 mg/dL (2.7-4.5) H 01/08/18 14:13 Magnesium 2.7 mg/dL (1.6-2.6) H 01/08/18 14:13 Iron 13 mcg/dL (50-170) L 01/10/18 09:02 % Saturation 5 % (15-50) L 01/10/18 09:02 Transferrin 171 mg/dL (203-362) L 01/10/18 09:02 Creatine Kinase 1091 Units/L (30-223) H 01/09/18 10:40 Troponin I 0.04 ng/mL (< 0.04) H* 01/09/18 00:50 B-Natriuretic Peptide 910 pg/mL (Less than 100) H 01/08/18 14:13 Serum Total Protein 5.9 g/dL (6.4-8.9) L 01/08/18 20:42 Albumin 3.4 g/dL (3.5-5.7) L 01/08/18 20:42 Urine Clarity Cloudy (Clear) A 01/08/18 14:36 Urine Bilirubin Small (Negative) H 01/08/18 14:36 Ur Leukocyte Esterase Moderate (Negative) H 01/08/18 14:36 Urine Microscopic WBC TNTC per hpf (0-3) H 01/08/18 14:36 Ur Squamous Epith Cells Many per lpf (None-Few) H 01/08/18 14:36 Urine Yeast Many per hpf (None Seen) H 01/08/18 14:36 Stool Occult Blood Positive (Negative) A 01/11/18 05:45 - Clinical Findings Intake & Output: Intake & Output 01/10/18 01/11/18 01/11/18 23:59 07:59 15:59 Intake Total 354 / 354 254 / 254 590 / 590 Output Total 650 / 650 700 / 700 350 / 350 Balance -296 / -296 -446 / -446 240 / 240 Weight 111.6 kg - Attending Attestation I examined this patient and my medical decision-making was reviewed with the Resident Physician. I agree with the documented findings, disposition and treatment plan as described except to the extent set forth below. We independently had [id number] contact with the patient Patient seen and examined at bedside Labs, radiology, chart personally reviewed. Management was reviewed during multidisciplinary critical care rounds. DIE DESIGNER: Appears nearing baseline mental status function no neurological deficit Pulm: Acute on chronic respiratory failure or just stabilized continue noninvasive positive pressure ventilation for 6-8 hours during the day and during naps and sleep Cards: Remains hypotensive requiring vasopressor this is being weaned down I think this is secondary to inflammatory cascade as a combination of infection kidney injury FEN-GI: Advance diet as tolerated Renal: Kidney injury is improving she is nearing baseline nephrology following ID: Transitioned to ceftriaxone for antimicrobial coverage was plan to stop at 7 -10 days unclear source of infection at this time but white count continues to trend down still suspected underlying UTI although cultures were negative Heme/Onc: DVT prophylaxis given Endo: Glucose Monitored Integ/MSK: Skin Care per routine ICU Nursing Protocol to prevent ulcers. Lines: All lines examined without evidence of infection : Dispo: Remain in ICU for vasopressor support CODE: Full. I confirmed with patient that she is okay for short-term intubation
[2018-01-11] MEDS: Iron Polysaccharide Complex 150 MG CAPSULE PO SCH (10:32)
[2018-01-11] MEDS: cefTRIAXone 1,000 MG in Water for inj. (sterile) 20 ML 10 ML IVP SCH (11:28)
[2018-01-12] MEDS: *HR* Heparin 5,000 UNIT/ML VIAL SQ SCH ×2 (05:21→18:39)
[2018-01-12] MEDS: Insulin LISPRO 300 UNITS/3 ML VIAL SQ SCH ×3 (08:08→16:47)
[2018-01-12] MEDS: Iron Polysaccharide Complex 150 MG CAPSULE PO SCH (08:13)
[2018-01-12] MEDS: Pantoprazole 40 MG VIAL IVP SCH (08:13)
[2018-01-12] MEDS: cefTRIAXone 1,000 MG in Water for inj. (sterile) 20 ML 10 ML IVP SCH (08:13)
--- NOTE | 2018-01-12 08:23 | Nephrology Progress Note ---
<Mike Cottonson - Last Filed: 01/12/18 12:45> Date of Encounter: 01/12/18 Time of Encounter: 08:23 - Assessment and Plan (1) MARIFER (acute kidney injury) Status: Acute MARIFER resolved at this point. Thank you for the consult, and please reconsult if needed. (2) Anemia Status: Chronic see above Qualifiers: Anemia type: unspecified type Qualified Code(s): D64.9 - Anemia, unspecified (3) COPD (chronic obstructive pulmonary disease) Status: Acute per critical care team Qualifiers: COPD type: COPD with acute exacerbation Qualified Code(s): J44.1 - Chronic obstructive pulmonary disease with (acute) exacerbation (4) Morbid obesity Status: Chronic per critical care team (5) AIMEE (obstructive sleep apnea) Status: Acute per critical care team (6) Urinary tract infection Status: Acute per critical care team Qualifiers: Urinary tract infection type: acute cystitis Hematuria presence: without hematuria Qualified Code(s): N30.00 - Acute cystitis without hematuria Subjective Principal diagnosis: acute on chronic resp failure Interval history: Ms Cox is a 62 yo F w/ pmh of DM, HTN, COPD w/ CPAP noncompliance, obesity presented with AMS presumed 2/2 UTI. Nephrology is consulted for MARIFER on CKD. Patient was seen and examined today. No events overnight, and no new complaints. Patient denies n/v/f/c/cp. Objective - Vital Signs Vital signs: Vital Signs Temp Pulse Resp BP Pulse Ox 01/12/18 08:00 85 20 104/52 99 01/12/18 07:45 98.9 F 01/12/18 07:00 84 18 98/42 98 01/12/18 06:00 80 16 96/44 99 01/12/18 05:00 77 17 104/46 98 01/12/18 04:00 81 20 104/58 100 01/12/18 03:50 79 01/12/18 03:00 98.1 F 80 28 108/44 93 01/12/18 02:10 71 18 112/60 99 01/12/18 01:00 72 9 110/55 99 01/12/18 00:20 12 111/38 100 01/12/18 00:00 70 18 89/48 100 01/11/18 23:50 98.4 F 01/11/18 23:14 73 01/11/18 23:00 73 18 89/48 99 01/11/18 22:00 74 17 101/45 99 01/11/18 21:00 77 18 104/48 99 01/11/18 20:50 77 01/11/18 20:00 75 16 100/48 99 01/11/18 19:00 98.1 F 80 22 90/54 100 01/11/18 18:00 80 12 84/42 100 01/11/18 17:00 84 12 118/62 98 01/11/18 16:00 80 12 116/56 98 01/11/18 15:30 98.3 F 01/11/18 15:00 98.3 F 80 12 102/49 98 01/11/18 14:00 72 10 108/49 99 01/11/18 13:00 72 16 105/51 98 01/11/18 12:00 98.6 F 81 16 114/48 98 01/11/18 11:00 98.3 F 82 22 104/73 99 01/11/18 10:00 87 22 95/70 99 01/11/18 09:00 87 22 106/57 99 Intake and Output 01/11/18 01/12/18 01/12/18 23:59 07:59 15:59 Intake Total 181 / 181 357 / 357 Output Total 300 / 300 375 / 375 Balance -119 / -119 -18 18 Intake: IV Fluids 117 / 117 Levophed 4 MG In Dextrose 5% 117 / 117 250 ML @ 5 MCG/MIN 19.05 mls/hr IVC CONT CAITLIN Rx#:[id number] Oral 160 / 160 240 / 240 Output: Catheter 300 / 300 375 / 375 Other: Meal Dinner Percent of Meal Consumed 40% Stool Size Small Moderate Stool Consistency soft formed Stool Characteristics Normal for Patient Stool Color Brown Brown Weight 110.6 kg Blood Glucose* 176 65 Patient Weight 01/12/18 23:59 Weight 110.6 kg - General Appearance General appearance: Present: appears started age, obese Neck: Present: supple Cardiology: Present: regular rate, regular rhythm Gastrointestinal: Present: normoactive bowel sounds Integumentary: Present: warm and dry Neurologic: Present: alert and oriented x3 Psychiatric: Present: mood/affect appropriate, cooperative - Lab 01/12/18 08:20 01/12/18 08:20 Most recent lab results ABG pH 7.49 pH Units (7.32-7.45) H 01/10/18 12:16 ABG pCO2 30 mmHg (35-45) L 01/10/18 12:16 ABG pO2 160 mmHg (85-104) H 01/10/18 12:16 ABG HCO3 23 mEq/L (21-27) 01/10/18 12:16 ABG O2 Saturation 100 % (95-98) H 01/10/18 12:16 Calcium 8.8 mg/dL (8.6-10.3) 01/11/18 04:04 Phosphorus 7.0 mg/dL (2.7-4.5) H 01/08/18 14:13 Magnesium 2.7 mg/dL (1.6-2.6) H 01/08/18 14:13 Urine Creatinine 74 mg/dL 01/09/18 13:27 Urine Sodium 20.1 mEq/L 01/09/18 13:27 Consult Discharge Plan - Plan Instructions: Diabetes Mellitus Type 2 in Adults (DC), Chronic Obstructive Pulmonary Disease (DC), Chronic Hypertension (DC) Referrals: Aayush Chase MD [Primary Care Provider] - Prescriptions: clonazePAM [Klonopin] 0.5 mg PO BID PRN 2 Days #4 tablet PRN Reason: Anxiety <Charlene Chopra - Last Filed: 02/09/18 23:21> Date of Encounter: 01/12/18 - Assessment and Plan (1) MARIFER (acute kidney injury) Status: Acute (2) CKD (chronic kidney disease) stage 3, GFR 30-59 ml/min Status: Deleted (3) Acute on chronic respiratory failure with hypoxia and hypercapnia Status: Resolved Objective - Lab 01/18/18 18:40 01/18/18 04:07 Most recent lab results ABG pH 7.43 pH Units (7.32-7.45) 01/16/18 10:44 ABG pCO2 70 mmHg (35-45) H* 01/16/18 10:44 ABG pO2 93 mmHg (85-104) 01/16/18 10:44 ABG HCO3 46 mEq/L (21-27) H 01/16/18 10:44 ABG O2 Saturation 97 % (95-98) 01/16/18 10:44 Calcium 8.8 mg/dL (8.6-10.3) 01/18/18 04:07 Phosphorus 2.4 mg/dL (2.7-4.5) L 01/12/18 08:20 Magnesium 1.4 mg/dL (1.6-2.6) L 01/18/18 04:07 Urine Creatinine 74 mg/dL 01/09/18 13:27 Urine Sodium 20.1 mEq/L 01/09/18 13:27 - Attending Attestation I examined this patient and my medical decision-making was reviewed with the Resident Physician. I agree with the documented findings, disposition and treatment plan as described except to the extent set forth below. Pt seen and examined with no new complaints. SCr improving at 1.12, GFR 49, might be at baseline. UOP remains very good at approx. 1.5 liters in the past 24hrs. Continue to avoid nephrotoxins if possible. Will sign off, please reconsult prn.
[2018-01-12] MEDS: Acetaminophen 325 MG TABLET PO PRN (08:28)
[2018-01-12 08:44] LABS: VBG Ionized Calcium 1.18 mmol/L (1.15-1.35)
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
[2018-01-12 08:56] LABS: Basophils % 0.2 %; Immature Granulocytes % 0.2 % (0-4)
[2018-01-12 08:57] LABS: Hemoglobin 7.1 g/dL (11.5-15.4); Mean Corpuscular HGB Conc 28.4 g/dL (31.6-35.5); Mean Corpuscular Hemoglobin 29.3 pg (28.0-33.3); Mean Corpuscular Volume 103.3 fL (83.0-100.0); Red Blood Count 2.42 M/mcL (3.82-4.97); Red Cell Distribution Width 15.8 % (11.5-14.5); Segmented Neutrophils % 73.9 %
[2018-01-12 08:58] LABS: Lymphocytes % 18.1 %; Monocytes # 0.4 K/mcL (0.0-1.3); Monocytes % 7.6 %
[2018-01-12 09:01] LABS: Calcium 8.9 mg/dL (8.6-10.3); Magnesium 2.4 mg/dL (1.6-2.6); Phosphorous 2.4 mg/dL (2.7-4.5); Potassium 4.5 mEq/L (3.5-5.1)
[2018-01-12 09:03] LABS: Neutrophils # 4.1 K/mcL (1.6-8.9); Platelet Count 85 K/mcL (140-400)
[2018-01-12 09:23] LABS: Hypochromasia Present (Not Present)
[2018-01-12 09:24] LABS: Platelet Estimate Decreased (Normal)
--- NOTE | 2018-01-12 11:02 | Event Note ---
Date of Encounter: 01/12/18 Time of Encounter: 11:[address] Eldridge the admitting physician that we will be transferring her to the floor with telemetry when bed is availab.e
[2018-01-12] MEDS ORDERED: Dextrose Gel 15 GM/37.5 ML TUBE PO PRN ×2 (12:46)
[2018-01-12] MEDS ORDERED: Norepinephrine 4 MG in D5% in Water 250 ML IVC SCH (12:46)
[2018-01-12] MEDS ORDERED: *HR* Dextrose 50 % in Water (Syg) 50 ML SYRINGE IVP PRN (12:46)
[2018-01-12] MEDS ORDERED: D5% in Water 1,000 ML IVC PRN (12:46)
[2018-01-12] MEDS ORDERED: Ipratropium/Albuterol Neb 3 ML IH PRN (12:46)
[2018-01-12] MEDS ORDERED: *HR* Heparin 5,000 UNIT/ML VIAL SQ SCH (18:00)
[2018-01-13] MEDS: clonazePAM 0.5 MG TABLET PO PRN (00:39)
[2018-01-13] MEDS: *HR* Heparin 5,000 UNIT/ML VIAL SQ SCH (05:23)
[2018-01-13 06:08] LABS: Basophils % 0.2 %; Hemoglobin 7.4 g/dL (11.5-15.4); Immature Granulocytes % 0.2 % (0-4); Mean Corpuscular Volume 104.1 fL (83.0-100.0); Red Cell Distribution Width 15.3 % (11.5-14.5)
[2018-01-13 06:09] LABS: Hematocrit 25.3 % (35.3-44.9); Immature Platelets 5.6 % (1.1-6.1); Lymphocytes # 0.9 K/mcL (0.6-4.6); Lymphocytes % 20.1 %; Mean Corpuscular HGB Conc 29.2 g/dL (31.6-35.5); Mean Corpuscular Hemoglobin 30.5 pg (28.0-33.3); Mean Platelet Volume 11.7 fL (9.4-12.4); Monocytes # 0.4 K/mcL (0.0-1.3); Monocytes % 9.1 %; Neutrophils # 3.2 K/mcL (1.6-8.9); Red Blood Count 2.43 M/mcL (3.82-4.97); Segmented Neutrophils % 70.4 %
[2018-01-13 06:10] LABS: Platelet Count 93 K/mcL (140-400)
[2018-01-13 06:28] LABS: BUN/Creatinine Ratio 33 (6-26); Blood Urea Nitrogen 30 mg/dL (8-23); Calcium 9.2 mg/dL (8.6-10.3); Carbon Dioxide 39 mEq/L (23-29); Chloride 104 mEq/L (98-107); Glucose 147 mg/dL (70-105); Osmolality,Calculated 315 (280-300); Potassium 4.6 mEq/L (3.5-5.1); Sodium 148 mEq/L (136-145); eGFR For African Americans > 60 (> 60); eGFR For Non-African Americans > 60 (> 60)
[2018-01-13] MEDS: Insulin LISPRO 300 UNITS/3 ML VIAL SQ SCH ×3 (07:43→17:21)
[2018-01-13] MEDS ORDERED: CefTRIAXone 1,000 MG VIAL ONE (08:43)
[2018-01-13] MEDS: cefTRIAXone 1,000 MG in Water for inj. (sterile) 20 ML 10 ML IVP SCH (08:49)
[2018-01-13] MEDS: Iron Polysaccharide Complex 150 MG CAPSULE PO SCH (08:49)
--- NOTE | 2018-01-13 16:26 | Internal Med Progress Note ---
Date of Encounter: 01/13/18 Time of Encounter: 10:40 - Assessment and plan (1) Acute on chronic respiratory failure with hypoxia and hypercapnia Current Visit: Yes Status: Acute Assessment and plan: Improving. Currently on 3 L nasal cannula. Continue bronchodilators as needed. (2) Septic shock Current Visit: Yes Status: Acute Assessment and plan: Resolved. On ceftriaxone for UTI. Urine culture growing Adilia. Will place her on fluconazole. (3) Renal failure (ARF), acute on chronic Current Visit: Yes Status: Resolved Assessment and plan: Resolved Qualifiers: Acute renal failure type: with acute tubular necrosis Chronic kidney disease stage: unspecified stage Qualified Code(s): N17.0 - Acute kidney failure with tubular necrosis; N18.9 - Chronic kidney disease, unspecified; N18.9 - Chronic kidney disease, unspecified (4) Anemia Current Visit: Yes Status: Chronic Assessment and plan: Hemoglobin 7.4 today. Stable. We will continue to monitor. Stool for occult blood was positive. On Prilosec orally. We will continue to monitor hemoglobin levels. If stable will arrange for outpatient follow-up with GI. If decreases further, we will consult GI for inpatient endoscopy. Qualifiers: Anemia type: unspecified type Qualified Code(s): D64.9 - Anemia, unspecified (5) DVT prophylaxis Current Visit: Yes Status: Acute Assessment and plan: Patient currently receiving subcutaneous heparin. We will hold off on it due to anemia and suspected GI blood losses. We will place her on SCDs instead. (6) Hypertension Current Visit: Yes Status: Chronic Assessment and plan: Blood pressure remains well controlled Qualifiers: Hypertension type: essential hypertension Qualified Code(s): I10 - Essential (primary) hypertension (7) Diabetes Current Visit: Yes Status: Chronic Assessment and plan: Controlled at this time. Continue current insulin regimen Qualifiers: Diabetes mellitus type: type 2 Diabetes mellitus exterminator insulin use: without correction use Diabetes mellitus complication status: with kidney complications Diabetes mellitus complication detail: with chronic kidney disease Chronic kidney disease stage: stage 3 (moderate) Qualified Code(s): E11.22 - Type 2 diabetes mellitus with diabetic chronic kidney disease; N18.3 - Chronic kidney disease, stage 3 (moderate); N18.3 - Chronic kidney disease, stage 3 (moderate) (8) Morbid obesity Current Visit: Yes Status: Chronic (9) Diastolic CHF Current Visit: Yes Status: Acute Assessment and plan: Does not appear to be currently in congestive heart failure. She does have pedal edema likely due to IV hydration during this hospitalization. As her kidney function has improved, will consider resuming Lasix prior to discharge. Qualifiers: Heart failure chronicity: chronic Qualified Code(s): I50.32 - Chronic diastolic (congestive) heart failure (10) Obesity hypoventilation syndrome Current Visit: Yes Status: Chronic Assessment and plan: Use CPAP as needed (11) Urinary tract infection Current Visit: Yes Status: Resolved Assessment and plan: On ceftriaxone. Will complete 10 day treatment course. Qualifiers: Urinary tract infection type: acute cystitis Hematuria presence: without hematuria Qualified Code(s): N30.00 - Acute cystitis without hematuria (12) Elevated troponin Current Visit: Yes Status: Acute Assessment and plan: Possibly from demand ischemia. No chest pain. No further cardiac workup needed at this time. - Time Spent With Patient Total time spent is greater than 50% in coordination of care (as documented) at patient's floor/unit and/or counseling patient: - Subjective Interval history: Patient is sitting up in chair. Comfortable. Feeling better overall. Denies any chest pain. No nausea or vomiting. - Constitutional Vitals: Temp Pulse Resp BP Pulse Ox 98.3 F 84 16 133/68 98 01/13/18 15:51 01/13/18 15:51 01/13/18 15:51 01/13/18 15:51 01/13/18 15:51 General appearance: Present: cooperative, mild distress, A&O X 3, morbidly obese , answers questions appropriately - Neck Neck exam general surgery: Present: supple, trachea midline. Absent: lymphadenopathy - Respiratory Respiratory exam: Present: decreased breath sounds (At both bases). Absent: accessory muscle use, rales, rhonchi, wheezes - Cardiovascular Cardiovascular exam: Present: RRR, +S1, +S2. Absent: diastolic murmur, gallop, rubs, systolic murmur - GI/Abdominal GI/Abdominal exam: Present: normal bowel sounds, soft, no peritoneal signs. Absent: distended, tenderness - Extremities Exam Extremities exam: Present: warm, radial pulses palpable and symmetrical. Absent : calf tenderness, cyanotic, pedal edema - Neurological Exam Neurological exam: Present: oriented X3, no focal deficits. Absent: facial droop, speech deficit Internal Medicine: Result - Labs CBC & Chem 7: 01/13/18 05:35 01/13/18 05:35 Labs: Short CBC 01/13/18 Range/Units 05:35 WBC 4.5 (4.3-11.1) K/mcL Hgb 7.4 L (11.5-15.4) g/dL Hct 25.3 L (35.3-44.9) % Plt Count 93 L (140-400) K/mcL Neutrophils # 3.2 (1.6-8.9) K/mcL BMP 01/13/18 05:35 Sodium 148 H Potassium 4.6 Chloride 104 Carbon Dioxide 39 H BUN 30 H Creatinine 0.91 Glucose 147 H Calcium 9.2 - ABG Interpretation ABG results: ABG ABG pH 7.49 pH Units (7.32-7.45) H 01/10/18 12:16 ABG pCO2 30 mmHg (35-45) L 01/10/18 12:16 ABG pO2 160 mmHg (85-104) H 01/10/18 12:16 ABG O2 Saturation 100 % (95-98) H 01/10/18 12:16 PT/INR, D-dimer PT 10.3 Seconds (9.4-12.1) 01/08/18 20:42 - VTE Documentation of Mechanical Device: Intermittent pneumatic compression device Consult Discharge Plan - Plan Referrals: Aayush Chase MD [Primary Care Provider] -
[2018-01-13] MEDS: Fluconazole 100 MG TABLET PO SCH (17:21)
[2018-01-14 05:13] LABS: Basophils % 0.3 %
[2018-01-14 05:15] LABS: Hematocrit 26.3 % (35.3-44.9); Hemoglobin 7.6 g/dL (11.5-15.4); Immature Platelets 3.7 % (1.1-6.1); Lymphocytes # 1.1 K/mcL (0.6-4.6); Lymphocytes % 28.6 %; Mean Corpuscular HGB Conc 28.9 g/dL (31.6-35.5); Mean Corpuscular Hemoglobin 29.9 pg (28.0-33.3); Mean Corpuscular Volume 103.5 fL (83.0-100.0); Mean Platelet Volume 11.4 fL (9.4-12.4); Monocytes # 0.3 K/mcL (0.0-1.3); Monocytes % 8.6 %; Neutrophils # 2.4 K/mcL (1.6-8.9); Red Blood Count 2.54 M/mcL (3.82-4.97); Segmented Neutrophils % 62.5 %
[2018-01-14 05:18] LABS: Platelet Count 91 K/mcL (140-400)
[2018-01-14 05:37] LABS: BUN/Creatinine Ratio 25 (6-26); Blood Urea Nitrogen 19 mg/dL (8-23); Calcium 9.3 mg/dL (8.6-10.3); Carbon Dioxide 40 mEq/L (23-29); Chloride 105 mEq/L (98-107); Glucose 140 mg/dL (70-105); Osmolality,Calculated 309 (280-300); Potassium 4.7 mEq/L (3.5-5.1); Sodium 147 mEq/L (136-145); eGFR For African Americans > 60 (> 60); eGFR For Non-African Americans > 60 (> 60)
[2018-01-14] MEDS: Fluconazole 100 MG TABLET PO SCH (09:01)
[2018-01-14] MEDS: cefTRIAXone 1,000 MG in Water for inj. (sterile) 20 ML 10 ML IVP SCH (09:02)
[2018-01-14] MEDS: Iron Polysaccharide Complex 150 MG CAPSULE PO SCH (09:02)
[2018-01-14] MEDS: Insulin LISPRO 300 UNITS/3 ML VIAL SQ SCH ×3 (09:10→16:44)
[2018-01-14] MEDS: Acetaminophen 325 MG TABLET PO PRN ×2 (09:11→22:28)
--- NOTE | 2018-01-14 10:57 | Internal Med Progress Note ---
Date of Encounter: 01/14/18 Time of Encounter: 10:55 - Assessment and plan (1) Acute on chronic respiratory failure with hypoxia and hypercapnia Current Visit: Yes Status: Acute Assessment and plan: Continue O2 supplementation. CPAP/BiPAP use as needed. On bronchodilators. Appears to be close to baseline. Awaiting placement to skilled rehabilitation. Moderate risk for complications. (2) Septic shock Current Visit: Yes Status: Acute Assessment and plan: Shock has resolved. From urinary source of infection. Complete 14 day antibiotic course. On ceftriaxone. We will transition to oral medication today. (3) Renal failure (ARF), acute on chronic Current Visit: Yes Status: Resolved Qualifiers: Acute renal failure type: with acute tubular necrosis Chronic kidney disease stage: unspecified stage Qualified Code(s): N17.0 - Acute kidney failure with tubular necrosis; N18.9 - Chronic kidney disease, unspecified; N18.9 - Chronic kidney disease, unspecified (4) Anemia Current Visit: Yes Status: Suspected Assessment and plan: Hemoglobin remained stable. 7.6 today. Patient denies any hematemesis or melena. Continue iron supplements. Follow up with GI as outpatient for upper GI endoscopy and colonoscopy. Qualifiers: Anemia type: iron deficiency Iron deficiency anemia type: chronic blood loss Qualified Code(s): 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 (chronic) (5) Hypertension Current Visit: Yes Status: Chronic Assessment and plan: Blood pressure well controlled mostly. Was elevated this morning. We will continue to monitor for now. As her renal function has normalized, will start patient back on valsartan. Qualifiers: Hypertension type: essential hypertension Qualified Code(s): I10 - Essential (primary) hypertension (6) Diabetes Current Visit: Yes Status: Chronic Assessment and plan: Blood sugars remain well controlled Qualifiers: Diabetes mellitus type: type 2 Diabetes mellitus chcf insulin use: without technician terminal and repeater use Diabetes mellitus complication status: with kidney complications Diabetes mellitus complication detail: with chronic kidney disease Chronic kidney disease stage: stage 3 (moderate) Qualified Code(s): E11.22 - Type 2 diabetes mellitus with diabetic chronic kidney disease; N18.3 - Chronic kidney disease, stage 3 (moderate); N18.3 - Chronic kidney disease, stage 3 (moderate) (7) Morbid obesity Current Visit: Yes Status: Chronic (8) Diastolic CHF Current Visit: Yes Status: Chronic Assessment and plan: Since her renal function has normalized, will start patient on low-dose Lasix as she is developing pedal edema. Qualifiers: Heart failure chronicity: chronic Qualified Code(s): I50.32 - Chronic diastolic (congestive) heart failure (9) Obesity hypoventilation syndrome Current Visit: Yes Status: Chronic (10) Urinary tract infection Current Visit: Yes Status: Resolved Qualifiers: Urinary tract infection type: acute cystitis Hematuria presence: without hematuria Qualified Code(s): N30.00 - Acute cystitis without hematuria (11) Elevated troponin Current Visit: Yes Status: Acute Assessment and plan: adynamic. Due to demand ischemia and hypoxia. (12) DVT prophylaxis Current Visit: Yes Status: Acute Assessment and plan: With SCDs. Not on medical and coagulation due to anemia and suspected GI blood losses. - Time Spent With Patient Total time spent is greater than 50% in coordination of care (as documented) at patient's floor/unit and/or counseling patient: - Subjective Interval history: Patient is awake and alert. Doing better overall. On 3 L nasal cannula. Denies any chest pain. Shortness of breath is improving. Does have some lower extremity swelling. No nausea or vomiting. No abdominal pain. - Constitutional Vitals: Temp Pulse Resp BP Pulse Ox 98.6 F 90 15 149/65 98 01/14/18 07:11 01/14/18 07:11 01/14/18 07:11 01/14/18 07:11 01/14/18 07:11 General appearance: Present: cooperative, mild distress, A&O X 3, morbidly obese , answers questions appropriately - Respiratory Respiratory exam: Present: decreased breath sounds (At both bases), wheezes. Absent: accessory muscle use, rales, rhonchi - Cardiovascular Cardiovascular exam: Present: RRR, +S1, +S2. Absent: diastolic murmur, gallop, rubs, systolic murmur - GI/Abdominal GI/Abdominal exam: Present: normal bowel sounds, soft, no peritoneal signs. Absent: distended, tenderness - Extremities Exam Extremities exam: Present: pedal edema (Bilateral mild), warm, radial pulses palpable and symmetrical. Absent: calf tenderness, cyanotic - Neurological Exam Neurological exam: Present: alert, oriented X3, no focal deficits. Absent: facial droop, speech deficit - Skin Skin exam: Present: dry, intact Internal Medicine: Result - Labs CBC & Chem 7: 01/14/18 04:59 01/14/18 04:59 Labs: Short CBC 01/14/18 Range/Units 04:59 WBC 3.8 L (4.3-11.1) K/mcL Hgb 7.6 L (11.5-15.4) g/dL Hct 26.3 L (35.3-44.9) % Plt Count 91 L (140-400) K/mcL Neutrophils # 2.4 (1.6-8.9) K/mcL BMP 01/14/18 04:59 Sodium 147 H Potassium 4.7 Chloride 105 Carbon Dioxide 40 H* BUN 19 Creatinine 0.75 Glucose 140 H Calcium 9.3 - ABG Interpretation ABG results: ABG ABG pH 7.49 pH Units (7.32-7.45) H 01/10/18 12:16 ABG pCO2 30 mmHg (35-45) L 01/10/18 12:16 ABG pO2 160 mmHg (85-104) H 01/10/18 12:16 ABG O2 Saturation 100 % (95-98) H 01/10/18 12:16 PT/INR, D-dimer PT 10.3 Seconds (9.4-12.1) 01/08/18 20:42 - VTE Documentation of Mechanical Device: Intermittent pneumatic compression device Consult Discharge Plan - Plan Referrals: Aayush Chase MD [Primary Care Provider] -
[2018-01-14] MEDS: Valsartan 80 MG TABLET PO SCH (13:06)
[2018-01-14] MEDS: Furosemide 20 MG TABLET PO SCH ×2 (13:06→16:47)
[2018-01-15 01:50] LABS: Basophils % 0.3 %; Hematocrit 25.1 % (35.3-44.9); Hemoglobin 7.3 g/dL (11.5-15.4); Immature Granulocytes % 0.3 % (0-4); Lymphocytes # 1.1 K/mcL (0.6-4.6); Lymphocytes % 30.4 %; Mean Corpuscular HGB Conc 29.1 g/dL (31.6-35.5); Mean Corpuscular Hemoglobin 29.9 pg (28.0-33.3); Mean Corpuscular Volume 102.9 fL (83.0-100.0); Mean Platelet Volume 11.2 fL (9.4-12.4); Monocytes # 0.4 K/mcL (0.0-1.3); Monocytes % 10.2 %; Neutrophils # 2.2 K/mcL (1.6-8.9); Red Blood Count 2.44 M/mcL (3.82-4.97); Red Cell Distribution Width 14.8 % (11.5-14.5); Segmented Neutrophils % 58.8 %
[2018-01-15 01:51] LABS: Platelet Count 87 K/mcL (140-400)
[2018-01-15 02:03] LABS: BUN/Creatinine Ratio 18 (6-26); Blood Urea Nitrogen 14 mg/dL (8-23); Calcium 9.3 mg/dL (8.6-10.3); Carbon Dioxide 42 mEq/L (23-29); Chloride 99 mEq/L (98-107); Glucose 103 mg/dL (70-105); Osmolality,Calculated 297 (280-300); Potassium 4.3 mEq/L (3.5-5.1); Sodium 143 mEq/L (136-145); eGFR For African Americans > 60 (> 60); eGFR For Non-African Americans > 60 (> 60)
[2018-01-15] MEDS: Acetaminophen 325 MG TABLET PO PRN (06:04)
[2018-01-15] MEDS: Fluconazole 100 MG TABLET PO SCH (09:20)
[2018-01-15] MEDS: Furosemide 20 MG TABLET PO SCH ×2 (09:21→16:57)
[2018-01-15] MEDS: Iron Polysaccharide Complex 150 MG CAPSULE PO SCH (09:21)
[2018-01-15] MEDS: Iron Sucrose Complex 250 MG in 0.9 % Sodium Chloride 250 ML IVPB SCH (09:21)
[2018-01-15] MEDS: cefTRIAXone 1,000 MG in Water for inj. (sterile) 20 ML 10 ML IVP SCH (09:21)
[2018-01-15] MEDS: Valsartan 80 MG TABLET PO SCH (09:21)
[2018-01-15] MEDS: Insulin LISPRO 300 UNITS/3 ML VIAL SQ SCH ×3 (09:22→17:04)
--- NOTE | 2018-01-15 10:15 | Internal Med Progress Note ---
Date of Encounter: 01/15/18 Time of Encounter: 10:10 - Assessment and plan (1) Septic shock Current Visit: Yes Status: Resolved Assessment and plan: Septic shock resolved. We will complete 14 day course of antibiotics for possible underlying urinary infection. Also continue fluconazole for candiduria. (2) Acute on chronic respiratory failure with hypoxia and hypercapnia Current Visit: Yes Status: Acute Assessment and plan: Improving. On 3L NC currently. Multifactorial. (3) Anemia Current Visit: Yes Status: Suspected Assessment and plan: Patient remains anemic. We will consult GI for possible upper GI endoscopy tomorrow. Keep nothing by mouth after midnight. Patient does have low iron levels. Receiving Venofer. Qualifiers: Anemia type: iron deficiency Iron deficiency anemia type: chronic blood loss Qualified Code(s): 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 (chronic) (4) Renal failure (ARF), acute on chronic Current Visit: Yes Status: Resolved Qualifiers: Acute renal failure type: with acute tubular necrosis Chronic kidney disease stage: unspecified stage Qualified Code(s): N17.0 - Acute kidney failure with tubular necrosis; N18.9 - Chronic kidney disease, unspecified; N18.9 - Chronic kidney disease, unspecified (5) Hypertension Current Visit: Yes Status: Chronic Assessment and plan: Blood pressure elevated today. Started back on Diovan. We will monitor and adjust antihypertensive regimen accordingly. Qualifiers: Hypertension type: essential hypertension Qualified Code(s): I10 - Essential (primary) hypertension (6) Diabetes Current Visit: Yes Status: Chronic Assessment and plan: Well controlled. 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 Diabetes mellitus complication status: with kidney complications Diabetes mellitus complication detail: with chronic kidney disease Chronic kidney disease stage: stage 3 (moderate) Qualified Code(s): E11.22 - Type 2 diabetes mellitus with diabetic chronic kidney disease; N18.3 - Chronic kidney disease, stage 3 (moderate); N18.3 - Chronic kidney disease, stage 3 (moderate) (7) Morbid obesity Current Visit: Yes Status: Chronic (8) Diastolic CHF Current Visit: Yes Status: Chronic Assessment and plan: Patient does have pedal edema and has been started back on Lasix with good improvement in urine output. Qualifiers: Heart failure chronicity: chronic Qualified Code(s): I50.32 - Chronic diastolic (congestive) heart failure (9) Obesity hypoventilation syndrome Current Visit: Yes Status: Chronic (10) Urinary tract infection Current Visit: Yes Status: Resolved Assessment and plan: With sepsis. On ceftriaxone. Complete 14 day treatment course Qualifiers: Urinary tract infection type: acute cystitis Hematuria presence: without hematuria Qualified Code(s): N30.00 - Acute cystitis without hematuria (11) Elevated troponin Current Visit: Yes Status: Acute Assessment and plan: Believed to be due to hypoxia and demand ischemia. Adynamic. (12) DVT prophylaxis Current Visit: Yes Status: Acute Assessment and plan: on SCDs alone due to underlying thrombocytopenia and anemia with suspected GI bleed. - Time Spent With Patient Total time spent is greater than 50% in coordination of care (as documented) at patient's floor/unit and/or counseling patient: - Subjective Interval history: Patient is awake and alert. Doing well overall. Denies any hematemesis or melena. Shortness of breath is improving. No dizziness or lightheadedness. - Constitutional Vitals: Temp Pulse Resp BP Pulse Ox 98.0 F 77 15 164/63 99 01/15/18 07:07 01/15/18 07:07 01/15/18 07:07 01/15/18 07:07 01/15/18 07:07 General appearance: Present: cooperative, mild distress, A&O X 3, morbidly obese , answers questions appropriately - Neck Neck exam general surgery: Present: supple, trachea midline. Absent: lymphadenopathy - Respiratory Respiratory exam: Present: CTAB. Absent: accessory muscle use, rales, rhonchi, wheezes - Cardiovascular Cardiovascular exam: Present: RRR, +S1, +S2. Absent: diastolic murmur, gallop, rubs, systolic murmur - GI/Abdominal GI/Abdominal exam: Present: normal bowel sounds, soft, no peritoneal signs. Absent: distended, tenderness - Extremities Exam Extremities exam: Present: pedal edema, warm, radial pulses palpable and symmetrical. Absent: calf tenderness, cyanotic - Skin Skin exam: Present: dry, intact, pallor Internal Medicine: Result - Labs CBC & Chem 7: 01/15/18 01:19 01/15/18 01:19 Labs: Short CBC 01/15/18 Range/Units 01:19 WBC 3.7 L (4.3-11.1) K/mcL Hgb 7.3 L (11.5-15.4) g/dL Hct 25.1 L (35.3-44.9) % Plt Count 87 L (140-400) K/mcL Neutrophils # 2.2 (1.6-8.9) K/mcL BMP 01/15/18 01:19 Sodium 143 Potassium 4.3 Chloride 99 Carbon Dioxide 42 H* BUN 14 Creatinine 0.76 Glucose 103 Calcium 9.3 - ABG Interpretation ABG results: ABG ABG pH 7.49 pH Units (7.32-7.45) H 01/10/18 12:16 ABG pCO2 30 mmHg (35-45) L 01/10/18 12:16 ABG pO2 160 mmHg (85-104) H 01/10/18 12:16 ABG O2 Saturation 100 % (95-98) H 01/10/18 12:16 PT/INR, D-dimer PT 10.3 Seconds (9.4-12.1) 01/08/18 20:42 - VTE Documentation of Mechanical Device: Intermittent pneumatic compression device Consult Discharge Plan - Plan Referrals: Aayush Chase MD [Primary Care Provider] -
[2018-01-15] MEDS ORDERED: Ondansetron 4 MG/2 ML VIAL ONE (16:56)
[2018-01-15] MEDS: Ondansetron 4 MG/2 ML VIAL IVP PRN (16:58)
[2018-01-15] MEDS ORDERED: Ondansetron 4 MG/2 ML VIAL IVP SCH (18:00)
[2018-01-16 05:45] LABS: Basophils % 0.5 %; Hemoglobin 7.5 g/dL (11.5-15.4); Immature Granulocytes % 0.3 % (0-4); Lymphocytes # 1.2 K/mcL (0.6-4.6); Lymphocytes % 30.6 %; Mean Corpuscular HGB Conc 28.8 g/dL (31.6-35.5); Mean Corpuscular Hemoglobin 29.4 pg (28.0-33.3); Mean Platelet Volume 10.8 fL (9.4-12.4); Monocytes # 0.5 K/mcL (0.0-1.3); Monocytes % 11.6 %; Neutrophils # 2.3 K/mcL (1.6-8.9); Red Blood Count 2.55 M/mcL (3.82-4.97); Red Cell Distribution Width 14.9 % (11.5-14.5)
[2018-01-16 05:46] LABS: Platelet Count 86 K/mcL (140-400)
[2018-01-16 06:15] LABS: Platelet Estimate Decreased (Normal)
[2018-01-16 06:16] LABS: Anisocytosis 1+ (Not Present)
[2018-01-16 06:25] LABS: BUN/Creatinine Ratio 13 (6-26); Blood Urea Nitrogen 10 mg/dL (8-23); Calcium 9.1 mg/dL (8.6-10.3); Carbon Dioxide > 45 mEq/L (23-29); Chloride 97 mEq/L (98-107); Glucose 78 mg/dL (70-105); Osmolality,Calculated 298 (280-300); Sodium 145 mEq/L (136-145); eGFR For African Americans > 60 (> 60); eGFR For Non-African Americans > 60 (> 60)
[2018-01-16] MEDS: cefTRIAXone 1,000 MG in Water for inj. (sterile) 20 ML 10 ML IVP SCH (09:44)
[2018-01-16] MEDS: Fluconazole 100 MG TABLET PO SCH (09:45)
[2018-01-16] MEDS: Furosemide 20 MG TABLET PO SCH ×2 (09:45→16:46)
[2018-01-16] MEDS: Iron Polysaccharide Complex 150 MG CAPSULE PO SCH (09:45)
[2018-01-16] MEDS: Valsartan 80 MG TABLET PO SCH (09:45)
[2018-01-16] MEDS: Iron Sucrose Complex 250 MG in 0.9 % Sodium Chloride 250 ML IVPB SCH (09:45)
[2018-01-16] MEDS: Insulin LISPRO 300 UNITS/3 ML VIAL SQ SCH ×3 (09:58→16:46)
[2018-01-16 10:54] LABS: ABG Base Excess 20 mEq/L (-2 to 3); ABG HCO3 46 mEq/L (21-27); ABG Oxygen Saturation 97 % (95-98); ABG PCO2 70 mmHg (35-45); ABG PH 7.43 pH Units (7.32-7.45); ABG PO2 93 mmHg (85-104); ABG TCO2 48 mEq/L (20-26)
[2018-01-16] MEDS: clonazePAM 0.5 MG TABLET PO PRN (12:00)
[2018-01-16] MEDS: Acetaminophen 325 MG TABLET PO PRN (12:00)
--- NOTE | 2018-01-16 14:10 | Gastroenterology Consult Note ---
<ReinosoPastor juarez Giovanna - Last Filed: 01/16/18 14:08> Date of Encounter: 01/16/18 Time of Encounter: 11:05 - Assessment and plan (1) Anemia Current Visit: Yes Status: Suspected Assessment and plan: Hgb on admission was 8 and this AM Hgb 7.5. Baseline Hgb around 9. Continue iron. Continue to monitor CBC and transfuse PRBC as needed. Plan for EGD and colonoscopy tomorrow. Clear liquid diet today, no red or purple. NPO at midnight. If unable tolerate NuLytely please use MiraLAX prep. If not clear by 6 AM, give 2 tap water enemas. Qualifiers: Anemia type: iron deficiency Iron deficiency anemia type: chronic blood loss Qualified Code(s): 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 (chronic) (2) CKD (chronic kidney disease) stage 3, GFR 30-59 ml/min Current Visit: No Status: Chronic Assessment and plan: Management per primary team. (3) Morbid obesity Current Visit: Yes Status: Chronic (4) Thrombocytopenia Current Visit: Yes Status: Acute Assessment and plan: Check liver US and hepatic panel. - Time Spent With Patient Total time spent is greater than 50% in coordination of care (as documented) at patient's floor/unit and/or counseling patient: GI History of Present Illness - Data of Consult Patient: new to practice Consult date: 01/16/18 Requesting Physician: Damari Akins MD - Consult Narrative Reason for consult: Anemia, FOBT positive History of present illness: Ms. Cox is a 62 year old female with PMHx of CHF, COPD, DM, fibromyalgia, HLD , HTN who presented to the ED from [facility] for evaluation of confusion that started 3 days prior to admission. In the ED, patient was found to have respiratory acidosis with a pH of 7.25 and PCO2 of 86. Patient was placed on BiPAP. Patient also found to be in septic shock with blood pressures unresponsive to 3 L of fluid so Levophed was started and patient was started on IV Vancomycin, IV Zosyn , and Fluconazole due to yeast in urinalysis and was admitted to the ICU. Levophed was weaned off on 01/12 and BiPAP was weaned to [place], and was transferred out of the ICU. We have been consulted to evaluate her anemia. FOBT was positive on 01/11. Hgb on admission was 8 and this AM Hgb 7.5. Baseline Hgb around 9. Procedures: Colonoscopy 08/12/2014 Dr. Magallon: Poor prep, stool in sigmoid colon, descending colon, ascending colon, and cecum. Internal hemorrhoids. EGD 08/12/2014 Dr. Magallon: Hiatus hernia, irregular Z-line, acute gastritis/ duodenitis, one duodenal ulcer. NSAIDs: None Anticoagulation: None Past Med Surg Social Fam HX - Past Medical History Medical history: CHF, COPD, diabetes, fibromyalgia, hyperlipidemia, hypertension Psychiatric history: anxiety, depression - Past Surgical History Surgical History: other - Social History Smoking Status: Never smoker Smokeless Tobacco Status: No Alcohol use: none Drug use: none - Family History Father Family Member Ethnicity: Non- Living Status: Hx Family Cardiac Disorders: Yes ([place], HTN) Brother Family Member Ethnicity: Non- Living Status: Still Living Hx Family GI Disorders: Yes (Crohn's disease) Sister Family Member Ethnicity: Non- Living Status: Hx Family Cardiac Disorders: Yes ([place], HTN) Mother Adopted: No Family Member Ethnicity: Non- Living Status: Hx Family Cardiac Disorders: Yes (HTN, CHF) Hx Family Respiratory Disorders: Yes (COPD) Hx Family Cancer: Yes (skin) Hx Family GI Disorders: No Hx Family Endocrine Disorder: Yes (DM) Hx Family Neuromuscular Disorders: No Hx Family Neurologic Disorders: Yes (CVA with rt sided weakness) Hx Family HEENT Disorders: Yes (NOORVIK) Hx Family Autoimmune Disorders: No - Gastrointestinal Gastrointestinal: Present: as per HPI - Constitutional Constitutional: as per HPI - EENT Eyes: as per HPI Ears: Present: as per HPI Nose, mouth and throat: Present: as per HPI - Cardiovascular Cardiovascular ROS: Present: as per HPI - Respiratory Respiratory IM: Present: as per HPI - Genitourinary Genitourinary: Absent: change in color, Urinary frequency - Neurological ROS Neurological GI: Present: as per HPI - Hematologic/Lymphatic Hematologic/Lymphatic pediatric: Present: as per HPI - Musculoskeletal Musculoskeletal ROS GI: Present: as per HPI - Integumentary Integumentary GI: Present: as per HPI - Psychiatric ROS Psychiatric GI: Present: as per HPI - Endocrine Endocrine IM: Present: as per HPI - Constitutional Vitals: Temp Pulse Resp BP Pulse Ox 98.3 F 85 15 156/64 96 01/16/18 11:07 01/16/18 11:07 01/16/18 11:07 01/16/18 11:07 01/16/18 11:07 General appearance: Present: cooperative, A&O X 3, no acute distress, answers questions appropriately - Head Head exam: Present: atraumatic, normocephalic - Eye Eye exam: Present: normal appearance, sclera anicteric - ENT ENT exam: Present: mucous membranes dry - Neck Neck exam general surgery: Present: normal inspection, trachea midline - Respiratory Respiratory exam: Present: CTAB. Absent: rales, rhonchi - Cardiovascular Cardiovascular exam: Present: RRR, +S1, +S2 - GI/Abdominal GI/Abdominal exam: Present: soft, no peritoneal signs. Absent: distended, firm , guarding, tenderness Additional comments: obese - Rectal Rectal exam: Present: deferred - Extremities Exam Extremities exam: Present: warm - Neurological Exam Neurological exam: Present: no focal deficits - Psychiatric Psychiatric exam: Present: normal affect, normal mood - Skin Skin exam: Present: dry, intact, normal color, warm Results - Labs CBC & Chem 7: 01/16/18 05:34 01/16/18 05:34 Labs: Last Result Calcium 9.1 mg/dL (8.6-10.3) 01/16/18 05:34 Iron 13 mcg/dL (50-170) L 01/10/18 09:02 % Saturation 5 % (15-50) L 01/10/18 09:02 Transferrin 171 mg/dL (203-362) L 01/10/18 09:02 Troponin I 0.04 ng/mL (< 0.04) H* 01/09/18 00:50 Vitamin B12 344 pg/mL (250-1100) 01/10/18 09:02 Folate 11.9 ng/mL (3.0-16.0) 01/10/18 09:02 Stool Occult Blood Positive (Negative) A 01/11/18 05:45 Entire Visit Hgb 7.5 g/dL (11.5-15.4) L 01/16/18 05:34 Hct 26.0 % (35.3-44.9) L 01/16/18 05:34 PT 10.3 Seconds (9.4-12.1) 01/08/18 20:42 Total Bilirubin 0.5 mg/dL (0.3-1.0) 01/08/18 20:42 AST 28 Units/L (13-39) 01/08/18 20:42 ALT 13 Units/L (7-52) 01/08/18 20:42 Folate 11.9 ng/mL (3.0-16.0) 01/10/18 09:02 - ABG ABG results: ABG ABG pH 7.43 pH Units (7.32-7.45) 01/16/18 10:44 ABG pCO2 70 mmHg (35-45) H* 01/16/18 10:44 ABG pO2 93 mmHg (85-104) 01/16/18 10:44 ABG O2 Saturation 97 % (95-98) 01/16/18 10:44 PT/INR, D-dimer PT 10.3 Seconds (9.4-12.1) 01/08/18 20:42 Consult Discharge Plan - Plan Referrals: Aayush Chase MD [Primary Care Provider] - <Abner Espino - Last Filed: 01/16/18 15:23> Date of Encounter: 01/16/18 Time of Encounter: 14:25 - Time Spent With Patient Total time spent is greater than 50% in coordination of care (as documented) at patient's floor/unit and/or counseling patient: GI History of Present Illness - Data of Consult Requesting Physician: Damari Akins MD - Consult Narrative History of present illness: Ms. Cox is a 62 year old female - Constitutional Vitals: Temp Pulse Resp BP Pulse Ox 97.8 F 76 15 142/47 99 01/16/18 15:13 01/16/18 15:13 01/16/18 15:13 01/16/18 15:13 01/16/18 15:13 Results - Labs CBC & Chem 7: 01/16/18 05:34 01/16/18 05:34 Labs: Last Result Calcium 9.1 mg/dL (8.6-10.3) 01/16/18 05:34 Iron 13 mcg/dL (50-170) L 01/10/18 09:02 % Saturation 5 % (15-50) L 01/10/18 09:02 Transferrin 171 mg/dL (203-362) L 01/10/18 09:02 Troponin I 0.04 ng/mL (< 0.04) H* 01/09/18 00:50 Vitamin B12 344 pg/mL (250-1100) 01/10/18 09:02 Folate 11.9 ng/mL (3.0-16.0) 01/10/18 09:02 Stool Occult Blood Positive (Negative) A 01/11/18 05:45 Entire Visit Hgb 7.5 g/dL (11.5-15.4) L 01/16/18 05:34 Hct 26.0 % (35.3-44.9) L 01/16/18 05:34 PT 10.3 Seconds (9.4-12.1) 01/08/18 20:42 Total Bilirubin 0.5 mg/dL (0.3-1.0) 01/08/18 20:42 AST 28 Units/L (13-39) 01/08/18 20:42 ALT 13 Units/L (7-52) 01/08/18 20:42 Folate 11.9 ng/mL (3.0-16.0) 01/10/18 09:02 - ABG ABG results: ABG ABG pH 7.43 pH Units (7.32-7.45) 01/16/18 10:44 ABG pCO2 70 mmHg (35-45) H* 01/16/18 10:44 ABG pO2 93 mmHg (85-104) 01/16/18 10:44 ABG O2 Saturation 97 % (95-98) 01/16/18 10:44 PT/INR, D-dimer PT 10.3 Seconds (9.4-12.1) 01/08/18 20:42 - Attending Attestation I have personally performed a face to face evaluation on this patient. I have reviewed and agree with the care plan. History and Exam by me shows: Patient seen denies any overt bleeding. Recommendation EGD/colon to rule out GI causes for her anemia
--- NOTE | 2018-01-16 15:37 | Internal Med Progress Note ---
Date of Encounter: 01/16/18 Time of Encounter: 15:34 - Assessment and plan (1) Anemia Current Visit: Yes Status: Suspected Assessment and plan: With stool positive for occult blood. Hemoglobin levels remain low but stable. 7.5 today. Gastroenterology consulted. Plan for upper GI endoscopy and colonoscopy tomorrow. Continue iron supplements. Qualifiers: Anemia type: iron deficiency Iron deficiency anemia type: chronic blood loss Qualified Code(s): 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 (chronic) (2) Acute on chronic respiratory failure with hypoxia and hypercapnia Current Visit: Yes Status: Acute Assessment and plan: Improved. On 2 L nasal cannula supplementation (3) Septic shock Current Visit: Yes Status: Resolved Assessment and plan: From UTI. On ceftriaxone. Complete 10 days of antibiotic treatment. (4) Hypertension Current Visit: Yes Status: Chronic Assessment and plan: Controlled. Continue Diovan. Qualifiers: Hypertension type: essential hypertension Qualified Code(s): I10 - Essential (primary) hypertension (5) Diabetes Current Visit: Yes Status: Chronic Assessment and plan: Well controlled. No changes to current treatment plan. 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: without senior care use Diabetes mellitus complication status: with kidney complications Diabetes mellitus complication detail: with chronic kidney disease Chronic kidney disease stage: stage 3 (moderate) Qualified Code(s): E11.22 - Type 2 diabetes mellitus with diabetic chronic kidney disease; N18.3 - Chronic kidney disease, stage 3 (moderate); N18.3 - Chronic kidney disease, stage 3 (moderate) (6) Renal failure (ARF), acute on chronic Current Visit: Yes Status: Resolved Qualifiers: Acute renal failure type: with acute tubular necrosis Chronic kidney disease stage: unspecified stage Qualified Code(s): N17.0 - Acute kidney failure with tubular necrosis; N18.9 - Chronic kidney disease, unspecified; N18.9 - Chronic kidney disease, unspecified (7) Morbid obesity Current Visit: Yes Status: Chronic (8) Diastolic CHF Current Visit: Yes Status: Chronic Assessment and plan: Not in acute exacerbation. Patient does have some pedal edema. Resume Lasix as renal function has normalized. Qualifiers: Heart failure chronicity: chronic Qualified Code(s): I50.32 - Chronic diastolic (congestive) heart failure (9) Obesity hypoventilation syndrome Current Visit: Yes Status: Chronic Assessment and plan: Use BiPAP/CPAP As needed (10) Urinary tract infection Current Visit: Yes Status: Resolved Assessment and plan: Patient does have Adilia growing in urine. On Diflucan. Also on ceftriaxone. Complete 10 days of antibiotic therapy. Complete 14 days of antifungal therapy Qualifiers: Urinary tract infection type: acute cystitis Hematuria presence: without hematuria Qualified Code(s): N30.00 - Acute cystitis without hematuria (11) Elevated troponin Current Visit: Yes Status: Acute Assessment and plan: Adynamic. (12) DVT prophylaxis Current Visit: Yes Status: Acute Assessment and plan: On SCDs due to anemia and possible GI bleed (13) Metabolic alkalosis with respiratory acidosis Current Visit: Yes Status: Acute Assessment and plan: Compensated metabolic alkalosis with underlying respiratory acidosis. PH is normal. As such no indication for acetazolamide. - Time Spent With Patient Total time spent is greater than 50% in coordination of care (as documented) at patient's floor/unit and/or counseling patient: - Subjective Interval history: Patient evaluated this morning. Lying in bed. Awake and alert. Denies any new complaints. No chest pain. No shortness of breath. No hematemesis or melena. No abdominal pain. - Constitutional Vitals: Temp Pulse Resp BP Pulse Ox 97.8 F 76 15 142/47 99 01/16/18 15:13 01/16/18 15:13 01/16/18 15:13 01/16/18 15:13 01/16/18 15:13 General appearance: Present: cooperative, mild distress, A&O X 3, morbidly obese , answers questions appropriately - Neck Neck exam general surgery: Present: supple, trachea midline. Absent: lymphadenopathy - Respiratory Respiratory exam: Present: CTAB. Absent: accessory muscle use, rales, rhonchi, wheezes - Cardiovascular Cardiovascular exam: Present: RRR, +S1, +S2. Absent: diastolic murmur, gallop, rubs, systolic murmur - GI/Abdominal GI/Abdominal exam: Present: normal bowel sounds, soft, no peritoneal signs. Absent: distended, tenderness - Extremities Exam Extremities exam: Present: pedal edema, warm, radial pulses palpable and symmetrical. Absent: calf tenderness, cyanotic - Neurological Exam Neurological exam: Present: CN II-XII intact, oriented X3, no focal deficits. Absent: facial droop, speech deficit Internal Medicine: Result - Labs CBC & Chem 7: 01/16/18 05:34 01/16/18 05:34 Labs: Short CBC 01/16/18 Range/Units 05:34 WBC 4.0 L (4.3-11.1) K/mcL Hgb 7.5 L (11.5-15.4) g/dL Hct 26.0 L (35.3-44.9) % Plt Count 86 L (140-400) K/mcL Neutrophils # 2.3 (1.6-8.9) K/mcL BMP 01/16/18 05:34 Sodium 145 Potassium 4.0 Chloride 97 L Carbon Dioxide > 45 H* BUN 10 Creatinine 0.78 Glucose 78 Calcium 9.1 - ABG Interpretation ABG results: ABG ABG pH 7.43 pH Units (7.32-7.45) 01/16/18 10:44 ABG pCO2 70 mmHg (35-45) H* 01/16/18 10:44 ABG pO2 93 mmHg (85-104) 01/16/18 10:44 ABG O2 Saturation 97 % (95-98) 01/16/18 10:44 PT/INR, D-dimer PT 10.3 Seconds (9.4-12.1) 01/08/18 20:42 - VTE Documentation of Mechanical Device: Intermittent pneumatic compression device Consult Discharge Plan - Plan Referrals: Aayush Chase MD [Primary Care Provider] -
[2018-01-16 15:51] LABS: Albumin 3.5 g/dL (3.5-5.7); Albumin/Globulin Ratio 1.3 (1.1-2.2); Bilirubin,Direct 0.2 mg/dL (0.0-0.2); Bilirubin,Indirect 0.2 mg/dL (0.0-1.2); Bilirubin,Total 0.4 mg/dL (0.3-1.0); Globulin 2.6 g/dL (2.4-3.5); Total Protein 6.1 g/dL (6.4-8.9)
[2018-01-16] MEDS ORDERED: SODIUM CHLORIDE/NAHCO3/KCL/PEG 4,000 ML SOLN.RECON PO ONE (17:00)
[2018-01-17] MEDS: Insulin LISPRO 300 UNITS/3 ML VIAL SQ SCH ×3 (08:04→16:52)
[2018-01-17] MEDS: Valsartan 80 MG TABLET PO SCH (09:25)
[2018-01-17] MEDS: Fluconazole 100 MG TABLET PO SCH (09:25)
[2018-01-17] MEDS: Iron Polysaccharide Complex 150 MG CAPSULE PO SCH (09:25)
[2018-01-17] MEDS: Furosemide 20 MG TABLET PO SCH ×2 (09:26→17:59)
[2018-01-17] MEDS: Acetaminophen 325 MG TABLET PO PRN (09:27)
[2018-01-17] MEDS: cefTRIAXone 1,000 MG in Water for inj. (sterile) 20 ML 10 ML IVP SCH (09:28)
[2018-01-17] MEDS: Iron Sucrose Complex 250 MG in 0.9 % Sodium Chloride 250 ML IVPB SCH (09:28)
--- NOTE | 2018-01-17 12:29 | Internal Med Progress Note ---
Date of Encounter: 01/17/18 Time of Encounter: 12:29 - Assessment and plan (1) Acute on chronic respiratory failure with hypoxia and hypercapnia Current Visit: Yes Status: Acute Assessment and plan: Appears to be near baseline breathing at this time. Continue supportive care for now. (2) Anemia Current Visit: Yes Status: Suspected Assessment and plan: To have endoscopy today. Recheck H/H tomorrow. Qualifiers: Anemia type: iron deficiency Iron deficiency anemia type: chronic blood loss Qualified Code(s): 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 (chronic) (3) Renal failure (ARF), acute on chronic Current Visit: Yes Status: Resolved Qualifiers: Acute renal failure type: with acute tubular necrosis Chronic kidney disease stage: unspecified stage Qualified Code(s): N17.0 - Acute kidney failure with tubular necrosis; N18.9 - Chronic kidney disease, unspecified; N18.9 - Chronic kidney disease, unspecified (4) DVT prophylaxis Current Visit: Yes Status: Acute (5) Hypertension Current Visit: Yes Status: Chronic Assessment and plan: Appears to be controlled. Continue meds. Qualifiers: Hypertension type: essential hypertension Qualified Code(s): I10 - Essential (primary) hypertension (6) Diabetes Current Visit: Yes Status: Chronic Assessment and plan: Monitoring blood sugars and covering. Qualifiers: Diabetes mellitus type: type 2 Diabetes mellitus fdc insulin use: without fdc use Diabetes mellitus complication status: with kidney complications Diabetes mellitus complication detail: with chronic kidney disease Chronic kidney disease stage: stage 3 (moderate) Qualified Code(s): E11.22 - Type 2 diabetes mellitus with diabetic chronic kidney disease; N18.3 - Chronic kidney disease, stage 3 (moderate); N18.3 - Chronic kidney disease, stage 3 (moderate) (7) Morbid obesity Current Visit: Yes Status: Chronic Assessment and plan: Chronic issue (8) Diastolic CHF Current Visit: Yes Status: Chronic Assessment and plan: No fluid issues at this time. Qualifiers: Heart failure chronicity: chronic Qualified Code(s): I50.32 - Chronic diastolic (congestive) heart failure (9) Obesity hypoventilation syndrome Current Visit: Yes Status: Chronic Assessment and plan: Chronic issue. (10) Urinary tract infection Current Visit: Yes Status: Resolved Qualifiers: Urinary tract infection type: acute cystitis Hematuria presence: without hematuria Qualified Code(s): N30.00 - Acute cystitis without hematuria (11) Septic shock Current Visit: Yes Status: Resolved (12) Metabolic alkalosis with respiratory acidosis Current Visit: Yes Status: Resolved - Time Spent With Patient Total time spent is greater than 50% in coordination of care (as documented) at patient's floor/unit and/or counseling patient: - Subjective Interval history: Ms Cox is currently admitted for acute resp failure and COPD. She has been anemic and had endoscopy today. She remains moderate to high risk due to potential for worsening clinical status. Ms Cox was awaiting endoscopy. No fever or chills. No CP. No abd pain. - Constitutional Vitals: Temp Pulse Resp BP Pulse Ox 98.1 F 70 15 145/55 99 01/17/18 11:31 01/17/18 11:31 01/17/18 11:31 01/17/18 11:31 01/17/18 11:31 General appearance: Present: cooperative, A&O X 3, answers questions appropriately - Head Head exam: Present: normocephalic - Eye Eye exam: Present: conjuntiva pink - ENT ENT exam: Present: mucous membranes moist - Respiratory Respiratory exam: Present: CTAB. Absent: rales, rhonchi, wheezes - Cardiovascular Cardiovascular exam: Present: RRR. Absent: tachycardia - GI/Abdominal GI/Abdominal exam: Present: soft. Absent: tenderness - Extremities Exam Extremities exam: Present: warm. Absent: tenderness - Neurological Exam Neurological exam: Present: alert, oriented X3 - Skin Skin exam: Present: dry, warm Internal Medicine: Result - Labs CBC & Chem 7: 01/16/18 05:34 01/16/18 05:34 Labs: Liver Function 01/16/18 Range/Units 14:36 Total Bilirubin 0.4 (0.3-1.0) mg/dL Direct Bilirubin 0.2 (0.0-0.2) mg/dL AST 13 (13-39) Units/L ALT 9 (7-52) Units/L Alkaline Phosphatase 46 (34-104) Units/L Albumin 3.5 (3.5-5.7) g/dL - ABG Interpretation ABG results: ABG ABG pH 7.43 pH Units (7.32-7.45) 01/16/18 10:44 ABG pCO2 70 mmHg (35-45) H* 01/16/18 10:44 ABG pO2 93 mmHg (85-104) 01/16/18 10:44 ABG O2 Saturation 97 % (95-98) 01/16/18 10:44 PT/INR, D-dimer PT 10.3 Seconds (9.4-12.1) 01/08/18 20:42 - Impressions Impressions Liver Ultrasound 01/16/18 20:00 IMPRESSION: Limited abdominal ultrasound. The visualized liver is unremarkable with no changes of cirrhosis. Nonvisualization of the gallbladder. D/ / 01/16/2018 21:02:36 James Rosenthal MD / bcaer Interpreting Provider: James Rosenthal MD - VTE Documentation of Mechanical Device: Intermittent pneumatic compression device Consult Discharge Plan - Plan Referrals: Aayush Chase MD [Primary Care Provider] -
[2018-01-17] MEDS ORDERED: Propofol 500 MG/50 ML INFUS..BTL ONE (13:21)
[2018-01-17] MEDS ORDERED: Lidocaine -MPF 2% 2 ML VIAL ONE (13:22)
--- NOTE | 2018-01-17 14:23 | Anesthesia Evaluation PreOp ---
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: Denies Any Significant HX Other Medical History: Renal (CRF), Diabetes Type II, Other Anesthesia History: No Prior Anesthetic Complications : No Alcohol Use: none Drug use: none Medications and Allergies Esomeprazole Magnesium [Nexium] 40 mg PO DAILY 04/06/16 [History] Glimepiride [Amaryl] 4 mg PO QAM 04/06/16 [History] Latanoprost [Xalatan] 1 drop BOTH EYES HS 04/06/16 [History] Simvastatin [Zocor] 40 mg PO HS 04/06/16 [History] SitaGLIPtin [Januvia] 100 mg PO DAILY 04/06/16 [History] Albuterol Sulfate [Albuterol Inhaler] 2 puff IH Q4H PRN 04/14/17 [History] Citalopram Hydrobromide [Citalopram HBr] 40 mg PO HS 04/14/17 [History] Docusate [Colace] 100 mg PO DAILY 04/14/17 [History] Gabapentin [Neurontin] 600 mg PO HS 04/14/17 [History] Valsartan [Diovan] 80 mg PO DAILY 04/14/17 [History] Spironolactone [Aldactone] 25 mg PO DAILY 07/24/17 [History] Brimonidine 0.2% [Alphagan] 1 drop BOTH EYES AD 12/19/17 [History] Propylene Glycol/Peg 400 [Systane Ultra 0.4-0.3% Eye Drp] 1 drop OP QID [History] clonazePAM [Klonopin] 0.5 mg PO BID PRN 12/19/17 [History] Furosemide [Lasix] 40 mg PO BID 14 Days #28 12/27/17 [Rx] Fluconazole [Diflucan] 100 mg PO DAILY 01/08/18 [History] 3 Allergy/AdvReac Type Severity Reaction Status Date / Time hydrocodone [From Vicodin] AdvReac Nausea Verified 12/19/17 12:48 Hydromorphone [From Dilaudid] AdvReac Nausea Verified 03/12/18 12:48 - Meds/Allergy Pre-op Review Medications Reviewed: Yes Allergies Reviewed: Yes Beta Blockers on Current Med List: No Anesthesia Results - Labs 01/16/18 05:34 01/16/18 05:34 Laboratory Tests 01/08/18 01/16/18 01/16/18 20:42 05:34 05:34 Hgb 7.5 L Hct 26.0 L Plt Count 86 L PT 10.3 INR 1.0 APTT 22.5 L Sodium 145 Potassium 4.0 BUN 10 Creatinine 0.78 - Imaging EKG: report reviewed ( borderline left axis deviation) Additional studies: EF 60%, diastolic dysfunction Anesthesia Exam Vital Signs/O2 Sat/Glucose, Most Current Temp Pulse Resp BP Pulse Ox 01/17/18 14:21 98.1 F 69 16 147/61 98 01/17/18 11:31 98.1 F 70 15 145/55 99 Height: 5'5 Weight: 246 lbs NPO (# of Hours): MN Pain Scale: 0 - HEENT Pupil (Motor): Pupils equal, EOMI Mallampati: III Oral Opening: Less than or equal to 3 - STILL OPERATOR WHISKEY LOC: Oriented STILL OPERATOR WHISKEY Motor: Normal RUE, Normal LUE, Normal RLE, Normal LLE, Normal Face STILL OPERATOR WHISKEY Sensory: Normal: RUE, LUE, RLE, LLE, Face - Cardiac Rhythm: Regular Murmur: None JVD: No Carotid Bruit: No - Pulmonary Breath Sounds: bilateral Clear Respiratory Effort: Symmetrical Anesthesia Assess/Plan ASA Score: 4 (HTN Elevated Troponins, Anemia DM CKD MO) Modified Madelin Scale for Level of Consciousness: Cooperative, oriented, and tranquil Anesthetic Plan: MAC Monitoring Plan: Standard Monitors Recovery Plan: Other (Discussed MAC, agrees to proceed)
[2018-01-17] MEDS ORDERED: 0.9 % Sodium Chloride 500 ML IVC SCH (14:30)
--- NOTE | 2018-01-17 15:12 | Anesthesia Evaluation Post Op ---
Date of Encounter: 01/17/18 Time of Encounter: 15:15 - Vital Signs Vital Signs: Vital Signs/O2 Sat/Glucose, Most Current Temp Pulse Resp BP Pulse Ox 01/17/18 14:21 98.1 F 69 16 147/61 98 01/17/18 11:31 98.1 F 70 15 145/55 99 - Lungs Lungs: Clear Ascult./Percussion - Airway Airway: Non-obstructed - Cardiovascular Regular Rate - Mental Status Mental Status: Alert & Oriented, Answers Appropriately - Pain Pain Scale: 0 - Nausea Vomiting Nausea Vomiting: Not Present - Hydration Hydration: NPO - Discharge PostOp Status: Transfer Patient to floor
[2018-01-18 04:48] LABS: Hematocrit 25.3 % (35.3-44.9); Hemoglobin 7.4 g/dL (11.5-15.4); Immature Platelets 9.5 % (1.1-6.1); Mean Corpuscular HGB Conc 29.2 g/dL (31.6-35.5); Mean Corpuscular Hemoglobin 29.8 pg (28.0-33.3); Mean Platelet Volume 11.8 fL (9.4-12.4); Red Blood Count 2.48 M/mcL (3.82-4.97); Red Cell Distribution Width 14.8 % (11.5-14.5)
[2018-01-18] MEDS: Acetaminophen 325 MG TABLET PO PRN (04:59)
[2018-01-18 05:16] LABS: BUN/Creatinine Ratio 10 (6-26); Blood Urea Nitrogen 7 mg/dL (8-23); Calcium 8.8 mg/dL (8.6-10.3); Carbon Dioxide 41 mEq/L (23-29); Chloride 97 mEq/L (98-107); Glucose 108 mg/dL (70-105); Magnesium 1.4 mg/dL (1.6-2.6); Osmolality,Calculated 297 (280-300); Potassium 3.5 mEq/L (3.5-5.1); Sodium 144 mEq/L (136-145); eGFR For African Americans > 60 (> 60); eGFR For Non-African Americans > 60 (> 60)
[2018-01-18] MEDS: Valsartan 80 MG TABLET PO SCH (09:29)
[2018-01-18] MEDS: Insulin LISPRO 300 UNITS/3 ML VIAL SQ SCH ×3 (09:29→17:07)
[2018-01-18] MEDS: Furosemide 20 MG TABLET PO SCH ×2 (09:29→17:48)
[2018-01-18] MEDS: Iron Polysaccharide Complex 150 MG CAPSULE PO SCH (09:29)
[2018-01-18] MEDS: Iron Sucrose Complex 250 MG in 0.9 % Sodium Chloride 250 ML IVPB SCH (09:32)
--- NOTE | 2018-01-18 09:39 | Discharge Summary ---
- NOTES TO OUTPATIENT PROVIDER Notes to Outpatient Provider: Pt had respiratory failure. Anemic - EGD found esophagitis. Orders not resulted at time of discharge: Pending orders 01/17/18 15:00 Surgical Pathology [PTH] Routine 01/18/18 09:29 Red Blood Cells [BBK] Stat Type and Screen [BBK] Stat Date of Encounter: 01/18/18 Time of Encounter: 09:34 - Discharge Diagnosis (1) Acute on chronic respiratory failure with hypoxia and hypercapnia Priority: Primary Status: Resolved (2) Anemia Priority: Secondary Status: Suspected Qualifiers: Anemia type: iron deficiency Iron deficiency anemia type: chronic blood loss Qualified Code(s): 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 (chronic) (3) Renal failure (ARF), acute on chronic Priority: Secondary Status: Resolved Qualifiers: Acute renal failure type: with acute tubular necrosis Chronic kidney disease stage: unspecified stage Qualified Code(s): N17.0 - Acute kidney failure with tubular necrosis; N18.9 - Chronic kidney disease, unspecified; N18.9 - Chronic kidney disease, unspecified (4) Hypertension Priority: Secondary Status: Chronic Qualifiers: Hypertension type: essential hypertension Qualified Code(s): I10 - Essential (primary) hypertension (5) Diabetes Priority: Secondary Status: Chronic Qualifiers: Diabetes mellitus type: type 2 Diabetes mellitus rn long term care insulin use: without rn long term care use Diabetes mellitus complication status: with kidney complications Diabetes mellitus complication detail: with chronic kidney disease Chronic kidney disease stage: stage 3 (moderate) Qualified Code(s): E11.22 - Type 2 diabetes mellitus with diabetic chronic kidney disease; N18.3 - Chronic kidney disease, stage 3 (moderate); N18.3 - Chronic kidney disease, stage 3 (moderate) (6) Morbid obesity Priority: Secondary Status: Chronic (7) Diastolic CHF Priority: Secondary Status: Chronic Qualifiers: Heart failure chronicity: chronic Qualified Code(s): I50.32 - Chronic diastolic (congestive) heart failure (8) Obesity hypoventilation syndrome Priority: Secondary Status: Chronic (9) Urinary tract infection Priority: Secondary Status: Resolved Qualifiers: Urinary tract infection type: acute cystitis Hematuria presence: without hematuria Qualified Code(s): N30.00 - Acute cystitis without hematuria (10) Septic shock Priority: Primary Status: Resolved (11) Esophagitis, Calvin grade A Priority: Secondary Status: Chronic Hospital course: Ms. Cox is a 62 year old female who presented to ED with increased confusion. She had not been wearing her bipap during the day. She was found to be in hypercapnic/hypoxic respiratory failure as well as septic shock. She was placed on bipap and admitted. Ms Cox was admitted to ICU with septic shock and respiratory failure. She had hypotension resistant to IV fluids and was placed on Levophed. She was also in MARIFER and seen by nephrology. She was also placed on IV abx and Diflucan. She had slow improvement in her blood pressure but was ultimately weaned off Levophed. She remained on bipap but was able to be taken off for longer periods of time. Abx changed to Ceftriaxone and she completed a 5 day course. Her renal function slowly improved. She was transferred to [facility] on 01/12. Urine cx grew Adilia and she completed a course of Diflucan. Her renal failure resolved. She had significant anemia and there was concern for GI bleed. She was given IV iron and was evaluated by GI service. She underwent EGD and colonoscopy which found Grade A esophagitis. Today she feels well. She is afebrile. Hemoglobin is 7.4 therefore she will receive a unit of blood prior to discharge. She will be discharged to SNF. Discharge discussed with: patient - Time Spent with Patient Total time spent providing and/or coordinating discharge services: 42min - Discharge Medications Prescriptions: clonazePAM [Klonopin] 0.5 mg PO BID PRN 2 Days #4 tablet PRN Reason: Anxiety Home Medications: Glimepiride [Amaryl] 4 mg PO QAM 04/06/16 [History] Latanoprost [Xalatan] 1 drop BOTH EYES HS 04/06/16 [History] Simvastatin [Zocor] 40 mg PO HS 04/06/16 [History] SitaGLIPtin [Januvia] 100 mg PO DAILY 04/06/16 [History] Albuterol Sulfate [Albuterol Inhaler] 2 puff IH Q4H PRN 04/14/17 [History] Citalopram Hydrobromide [Citalopram HBr] 40 mg PO HS 04/14/17 [History] Docusate [Colace] 100 mg PO DAILY 04/14/17 [History] Gabapentin [Neurontin] 600 mg PO HS 04/14/17 [History] Valsartan [Diovan] 80 mg PO DAILY 04/14/17 [History] Spironolactone [Aldactone] 25 mg PO DAILY 07/24/17 [History] Brimonidine 0.2% [Alphagan] 1 drop BOTH EYES AD 12/19/17 [History] Propylene Glycol/Peg 400 [Systane Ultra 0.4-0.3% Eye Drp] 1 drop OP QID [History] Furosemide [Lasix] 20 mg PO BIDDIURETIC tablet 01/18/18 [Rx] Ipratropium/Albuterol Neb [Duoneb] 3 ml IH [id number] PRN inhsol 01/18/18 [Rx] Iron Polysaccharide Complex [Ferrex 150] 150 mg PO DAILY capsule 01/18/18 [Rx] Omeprazole [PriLOSEC] 40 mg PO DAILY@0630 capsule.dr 01/18/18 [Rx] clonazePAM [Klonopin] 0.5 mg PO BID PRN 2 Days #4 tablet 01/18/18 [Rx] Allergies/Adverse Reactions: 3 Allergy/AdvReac Type Severity Reaction Status Date / Time hydrocodone [From Vicodin] AdvReac Nausea Verified 12/19/17 12:48 Hydromorphone [From Dilaudid] AdvReac Nausea Verified 12/19/17 12:48 Date of admission: 01/08/18 19:38 Primary care physician: Aayush Chase MD Consults: 01/08/18 19:46 Consult to Critical Care [CONS] Routine Consulting Provider: [facility]m [facility] Reason for Consult: Respiratory failure, renal failure and septic shock Time Notified: 18:00 Call Completed: Yes 01/09/18 11:19 Consult to Nephrology [CONS] Routine Consulting Provider: Kidney Michelle/GUCCI/STEPHANIE/MIKEY Reason for Consult: MARIFER Time Notified: 09:00 Call Completed: Yes 01/12/18 12:46 Consult to Occupational Therapy [CONS] Routine Comment: Evaluate, develop and implement POC Reason for Consult: weakness bilaterally, deconditioned Does patient have active BEDREST order?: No Is patient medically & hemodynamically stable?: Yes Patient assessed for mobility or mobilized this visit?: No Consult to Physical Therapy [CONS] Routine Comment: Evaluate, develop and implement POC Reason for Consult: weakness bilaterally , deconditioned Does patient have active BEDREST order?: No Is patient medically & hemodynamically stable?: Yes Patient assessed for mobility or mobilized this visit?: No 01/15/18 10:18 Consult to Gastroenterology [CONS] Routine Consulting Provider: Yao Martinez Reason for Consult: Anemia/ FOBT + Time Notified: 10:18 Call Completed: Yes Discharging clinician: Luis Alfredo Yi Anticipated date of discharge: 01/18/18 - Constitutional Vitals: Temp Pulse Resp BP Pulse Ox 97.9 F 77 16 144/62 98 01/18/18 07:08 01/18/18 07:08 01/18/18 07:08 01/18/18 07:08 01/18/18 07:08 General appearance: Present: cooperative, A&O X 3, answers questions appropriately - Head Head exam: Present: normocephalic - Eye Eye exam: Present: conjuntiva pink - ENT ENT exam: Present: mucous membranes moist - Respiratory Respiratory exam: Present: CTAB. Absent: rales, rhonchi, wheezes - Cardiovascular Cardiovascular exam: Present: RRR. Absent: tachycardia - GI/Abdominal GI/Abdominal exam: Present: soft. Absent: tenderness - Extremities Exam Extremities exam: Present: warm. Absent: tenderness - Neurological Exam Neurological exam: Present: alert, oriented X3 - Skin Skin exam: Present: dry, warm - Patient Status Disposition: Transfer SNF Condition: Good Functional capacity at discharge: uses cane/walker Overall status at discharge: patient is progressing back to baseline - Discharge Instructions Follow Up With: Aayush Chase MD [Primary Care Provider] - - Diet and Activity Activity: as per physical therapy, increase activity as tolerated Diet: low fat, low cholesterol, low salt diet - VTE Documentation of Mechanical Device: Intermittent pneumatic compression device
--- NOTE | 2018-01-18 10:11 | Physician Discharge Referral ---
ExtendedCare Referral Info Provider in Charge after Transfer: PCP Institutional Level of Care: Skilled - Diagnosis (1) Acute on chronic respiratory failure with hypoxia and hypercapnia Priority: Primary Status: Resolved (2) Anemia Priority: Secondary Status: Suspected (3) Renal failure (ARF), acute on chronic Priority: Secondary Status: Resolved (4) Hypertension Priority: Secondary Status: Chronic (5) Diabetes Priority: Secondary Status: Chronic (6) Morbid obesity Priority: Secondary Status: Chronic (7) Diastolic CHF Priority: Secondary Status: Chronic (8) Obesity hypoventilation syndrome Priority: Secondary Status: Chronic (9) Urinary tract infection Priority: Secondary Status: Resolved (10) Septic shock Priority: Primary Status: Resolved (11) Esophagitis, Nunda grade A Priority: Secondary Status: Chronic Expected Duration of Placement: Less than 30 days Prognosis: Good Aware of Diagnosis: Patient Aware of Prognosis: Patient - Transfer Medications Prescriptions: clonazePAM [Klonopin] 0.5 mg PO BID PRN 2 Days #4 tablet PRN Reason: Anxiety Home Medications: Glimepiride [Amaryl] 4 mg PO QAM 04/06/16 [History] Latanoprost [Xalatan] 1 drop BOTH EYES HS 04/06/16 [History] Simvastatin [Zocor] 40 mg PO HS 04/06/16 [History] SitaGLIPtin [Januvia] 100 mg PO DAILY 04/06/16 [History] Albuterol Sulfate [Albuterol Inhaler] 2 puff IH Q4H PRN 04/14/17 [History] Citalopram Hydrobromide [Citalopram HBr] 40 mg PO HS 04/14/17 [History] Docusate [Colace] 100 mg PO DAILY 04/14/17 [History] Gabapentin [Neurontin] 600 mg PO HS 04/14/17 [History] Valsartan [Diovan] 80 mg PO DAILY 04/14/17 [History] Spironolactone [Aldactone] 25 mg PO DAILY 07/24/17 [History] Brimonidine 0.2% [Alphagan] 1 drop BOTH EYES AD 12/19/17 [History] Propylene Glycol/Peg 400 [Systane Ultra 0.4-0.3% Eye Drp] 1 drop OP QID [History] Furosemide [Lasix] 20 mg PO BIDDIURETIC tablet 01/18/18 [Rx] Ipratropium/Albuterol Neb [Duoneb] 3 ml IH [id number] PRN inhsol 01/18/18 [Rx] Iron Polysaccharide Complex [Ferrex 150] 150 mg PO DAILY capsule 01/18/18 [Rx] Omeprazole [PriLOSEC] 40 mg PO DAILY@0630 capsule. 01/18/18 [Rx] clonazePAM [Klonopin] 0.5 mg PO BID PRN 2 Days #4 tablet 01/18/18 [Rx] Allergies/Adverse Reactions: 3 Allergy/AdvReac Type Severity Reaction Status Date / Time hydrocodone [From Vicodin] AdvReac Nausea Verified 12/19/17 12:48 Hydromorphone [From Dilaudid] AdvReac Nausea Verified 12/19/17 12:48 - Respiratory Orders Oxygen / L per min (Maintain saturation greater than 90%. Bipap at night and with naps.) Smoking Cessation: Smoking cessation has been advised. For more information, call the [employer] Tobacco Quit Line at 9-687-IOYA-NOW. - Ancillary Orders May use pressure relief devices daily prn, May consult with Dentist, Photo Tech, Steel Chipper PRN - Advance Directives Code Status: Full Code - History and Physical History/Physical reviewed & approved w/add comments: More alert. - Mobility Orders Chair, Ambulate - Rehabiliation Orders Rehab Potential: Good Rehab Orders: Evaluation for Physical Therapy, Evaluation for Occupational Therapy - Treatments Skin tear care topically daily PRN per policy, May check for fecal impaction rectally daily PRN, Fleet enema rectally every other day PRN cleansing purposes - Diet Orders Cardiac CERTIFICATION: I certify that the transfer of the above named patient to an Extended Care Facility is necessary for the continuing treatment of the diagnosis listed. The above information is true and accurate reflection of patient's current condition. Confidential - Redisclosure prohibited without a patient's written consent.
[2018-01-18] MEDS ORDERED: 0.9 % Sodium Chloride 500 ML ONE (14:14)
[2018-01-18] MEDS: Ondansetron 4 MG/2 ML VIAL IVP PRN (14:52)
[2018-01-18 17:43] VITALS: BP 123/69
[2018-01-18 19:14] LABS: Hematocrit 31.7 % (35.3-44.9)
[2018-01-18 19:16] LABS: Hemoglobin 9.4 g/dL (11.5-15.4)
== END 2018-01-18 20:10 | DRG 871 ==
LOC: ICNU 13:45 → EMEROO 13:45 → SUATTDRO 19:38 → ICNU 19:59 → 2NENU 01-12 18:12
PROVIDERS: ADMIT Internal Medicine; ATTEND Internal Medicine
PROC: ENDOEBX (2018-01-17 13:00)
PROC: ENDOCBX (2018-01-17 13:00)

== ENCOUNTER 2018-03-29 15:52 | Inpatient (IN) ==
--- NOTE | 2018-03-29 16:23 | Emergency Department Note ---
Disposition Clinical Impression: Hypercapnia Acute and chronic respiratory failure Qualifiers: Respiratory failure complication: hypercapnia Qualified Code(s): J96.22 - Acute and chronic respiratory failure with hypercapnia Disposition: Admitted As Inpatient Condition: Critical Referrals: Aayush Chase MD [Primary Care Provider] - Forms: ED Satisfaction Letter Time of Disposition: 19:03 General Adult HPI - General Chief complaint: ED Recheck/Abnormal Lab/Rx Stated complaint: CO2 levels elevated Time Seen by Provider: 03/29/18 15:59 Nursing Notes Reviewed: Yes Vital Signs Reviewed: Yes - History of Present Illness HPI Narrative: 62-year-old female presents from PCP office for evaluation of somnolence. PCP postulates she is again having elevated CO2. Patient's daughters bedside describes that come this morning, a Siemens patient awoke she sat down living room chair and was again asleep. Patient notes a 5 pound weight gain over the last 1 week. She otherwise has no complaints. She has been compliant with her CPAP machine for sleep apnea. She notes that she was in the ICU several times this year for similar complaint. PCP: Dr. Chase ROS: Positive: As above Negative: Fever, chills, nausea, vomiting, chest pains, palpitations, dyspnea, diaphoresis, unusual back pain, changes in bowel or bladder habits, lightheadedness Pain Scale: 6 - Related Data Home Medications Medication Instructions Recorded Confirmed RX: Glimepiride [Amaryl] 4 mg PO [facility] 04/06/16 03/29/18 RX: Latanoprost [Xalatan] 1 drop BOTH EYES 04/06/16 03/29/18 RX: Simvastatin [Zocor] 40 mg PO 04/06/16 03/29/18 RX: SitaGLIPtin [Januvia] 100 mg PO DAILY 04/06/16 03/29/18 RX: Albuterol Sulfate [Albuterol 2 puff IH Q4H PRN 04/14/17 03/29/18 Inhaler] RX: Citalopram Hydrobromide 40 mg PO 04/14/17 03/29/18 [Citalopram HBr] RX: Docusate [Colace] 100 mg PO DAILY 04/14/17 03/29/18 RX: Gabapentin [Neurontin] 600 mg PO 04/14/17 03/29/18 RX: Valsartan [Diovan] 80 mg PO DAILY 04/14/17 03/29/18 RX: Spironolactone [Aldactone] 25 mg PO DAILY 07/24/17 03/29/18 RX: Brimonidine 0.2% [Alphagan] 1 drop BOTH EYES AD 12/19/17 03/29/18 RX: Propylene Glycol/Peg 400 1 drop OP QID 12/19/17 03/29/18 [Systane Ultra 0.4-0.3% Eye Drp] Esomeprazole Magnesium [Nexium] 40 mg PO DAILY 03/29/18 03/29/18 Furosemide [Lasix] 40 mg PO BID 03/29/18 03/29/18 Ibandronate Sodium [Boniva] 150 mg PO QMONTH 03/29/18 03/29/18 Previous Rx's Medication Instructions Recorded RX: Ipratropium/Albuterol Neb 3 ml IH [id number] PRN inhsol 01/18/18 [Duoneb] RX: Iron Polysaccharide Complex 150 mg PO DAILY capsule 01/18/18 [Ferrex 150] RX: Omeprazole [PriLOSEC] 40 mg PO DAILY@0630 capsule.dr 01/18/18 RX: clonazePAM [Klonopin] 0.5 mg PO BID PRN 2 Days #4 tablet 01/18/18 RX: Ascorbic Acid [Vitamin C] 500 mg PO 0630 #30 tablet 01/25/18 RX: Isosorbide MONOnitrate (24 HR) 30 mg PO DAILY #30 tab.er.24h 01/25/18 [Imdur] Allergies Allergy/AdvReac Type Severity Reaction Status Date / Time hydrocodone [From Vicodin] AdvReac Nausea Verified 12/19/17 12:48 Hydromorphone [From Dilaudid] AdvReac Nausea Verified 12/19/17 12:48 All systems ED: reviewed and negative except as stated. Review of Systems: As Per HPI Past Medical History - Past Medical History Medical history: Reports: CHF, COPD, diabetes, fibromyalgia, hyperlipidemia, hypertension Surgical history: Reports: no surgical history Psychiatric history: Reports: anxiety, depression - Social History Smoking Status: Never smoker Smokeless Tobacco Status: No Alcohol use: Reports: none Drug use: Reports: none Physical Exam Vital Signs Reviewed General: Patient is alert, oriented, and in no acute distress. Head: atraumatic, normocephalic Eye: normal appearance, no scleral icterus, no conjunctival injection ENT: mucous membranes moist, normal external ear exam Neck: normal inspection, trachea midline, full ROM Chest: normal inspection, symmetric chest rise Respiratory: Poor respiratory effort. Bilateral breath sounds are clear without wheezing, crackles, or rhonchi. Cardiovascular: Regular rate and rhythm. No clicks, rubs, gallops, or murmors. Normal heart sounds. 1+ pitting bilateral pedal edema. Abdomen: Morbidly obese. Bowel sounds present normoactive x-4 quadrants. Abdomen is soft, nondistended, and nontender. No guarding or rebound. Musculoskeletal: Spontaneously moving all extremities. Skin: warm, dry, intact. Neuro: Alert and oriented x4. Sensation light touch intact. Psych: Patient's affect is appropriate for situation. Course Course Narrative: EKG dated 03/29/18 at 16:03 interpreted as sinus rhythm with rate of 66. Normal intervals of VT 180, QRS 110, QTC 399. Left axis. Flattened T-wave in V2 and inverted T wave in V3 which is new from comparative EKG dated 12/21/17. Initial ABG shows CO2 103. Patient placed on BiPAP. The PCO2 is improved in the 90s. Will admit the patient for acute on chronic hypercarbic respiratory failure. She is doing well on BiPAP. Discussed the above with the patient and family at bedside. They are in agreement to admission for evaluation management. I discussed CODE STATUS and wishes of the patient: Patient is full code. She is agreeable to intubation if needed. I discussed the patient with the admitting hospitalist, Dr. Joyce. We discussed the patient's clinical picture. He prefers patient is admitted to ICU at least overnight. I called the ICU to give a quick report and heads up. They are waiting and management call. Vital Signs Temperature 98 F 03/29/18 15:57 Pulse Rate 67 03/29/18 15:57 Respiratory Rate 18 03/29/18 15:57 Blood Pressure 143/77 03/29/18 15:57 O2 Sat by Pulse Oximetry 99 03/29/18 15:57 Temperature 98 F 03/29/18 16:03 Pulse Rate 65 03/29/18 18:52 Respiratory Rate 18 03/29/18 18:52 Blood Pressure 151/83 03/29/18 18:52 O2 Sat by Pulse Oximetry 96 03/29/18 18:53 Oxygen Delivery Oxygen Delivery Room Air Medical Decision Making - Lab Data Result diagrams: 03/29/18 16:15 03/29/18 16:15 Lab Results 03/29/18 03/29/18 03/29/18 Range/Units 16:14 16:15 16:15 WBC 6.2 (4.3-11.1) K/mcL RBC 3.77 L (3.82-4.97) M/mcL Hgb 11.4 L (11.5-15.4) g/dL Hct 36.5 (35.3-44.9) % MCV 96.8 (83.0-100.0) fL MCH 30.2 (28.0-33.3) pg MCHC 31.2 L (31.6-35.5) g/dL RDW 12.3 (11.5-14.5) % Plt Count 124 L (140-400) K/mcL MPV 11.9 (9.4-12.4) fL Immature Gran % 0.5 (0-4) % Seg Neutrophils % 61.2 % Lymphocytes % 23.0 % Monocytes % 6.8 % Eosinophils % 7.9 % Basophils % 0.6 % Neutrophils # 3.8 (1.6-8.9) K/mcL Lymphocytes # 1.4 (0.6-4.6) K/mcL Monocytes # 0.4 (0.0-1.3) K/mcL Eosinophils # 0.5 (0.0-0.6) K/mcL Basophils # 0.0 (0.0-0.2) K/mcL Sample Site ABG pH (7.32-7.45) pH Units ABG pCO2 (35-45) mmHg ABG pO2 (85-104) mmHg ABG HCO3 (21-27) mEq/L ABG Total CO2 (20-26) mEq/L ABG O2 Saturation (95-98) % ABG Base Excess (-2 to 3) mEq/L Bran Test O2 Delivery Device Blood Gas Modality Inspired O2 (1-15=lpm [id number]=%) PEEP cm H2O Pressure Support cm H2O Sodium 138 (136-145) mEq/L Potassium 4.6 (3.5-5.1) mEq/L Chloride 97 L (98-107) mEq/L Carbon Dioxide 39 H (23-29) mEq/L BUN 37 H (8-23) mg/dL Creatinine 1.28 H (0.60-1.20) mg/dL Est GFR ( Amer) 51 L (> 60) Est GFR (Non-Af Amer) 42 L (> 60) BUN/Creatinine Ratio 29 H (6-26) Glucose 346 H (70-105) mg/dL Calculated Osmolality 308 H (280-300) Calcium 9.5 (8.6-10.3) mg/dL Troponin I < 0.03 (< 0.04) ng/mL B-Natriuretic Peptide 123 H (Less than 100) pg/mL 03/29/18 03/29/18 Range/Units 17:36 18:33 WBC (4.3-11.1) K/mcL RBC (3.82-4.97) M/mcL Hgb (11.5-15.4) g/dL Hct (35.3-44.9) % MCV (83.0-100.0) fL MCH (28.0-33.3) pg MCHC (31.6-35.5) g/dL RDW (11.5-14.5) % Plt Count (140-400) K/mcL MPV (9.4-12.4) fL Immature Gran % (0-4) % Seg Neutrophils % % Lymphocytes % % Monocytes % % Eosinophils % % Basophils % % Neutrophils # (1.6-8.9) K/mcL Lymphocytes # (0.6-4.6) K/mcL Monocytes # (0.0-1.3) K/mcL Eosinophils # (0.0-0.6) K/mcL Basophils # (0.0-0.2) K/mcL Sample Site R Radial R Radial ABG pH 7.24 L 7.27 L (7.32-7.45) pH Units ABG pCO2 102 H* 94 H* (35-45) mmHg ABG pO2 94 79 L (85-104) mmHg ABG HCO3 43 H 43 H (21-27) mEq/L ABG Total CO2 46 H 46 H (20-26) mEq/L ABG O2 Saturation 95 92 L (95-98) % ABG Base Excess 12 H 12 H (-2 to 3) mEq/L Bran Test Positive Positive O2 Delivery Device Cannula BiPAP Blood Gas Modality CPAP/PS Inspired O2 2.0 30.0 (1-15=lpm [id number]=%) PEEP 8 cm H2O Pressure Support 16 cm H2O Sodium (136-145) mEq/L Potassium (3.5-5.1) mEq/L Chloride (98-107) mEq/L Carbon Dioxide (23-29) mEq/L BUN (8-23) mg/dL Creatinine (0.60-1.20) mg/dL Est GFR ( Amer) (> 60) Est GFR (Non-Af Amer) (> 60) BUN/Creatinine Ratio (6-26) Glucose (70-105) mg/dL Calculated Osmolality (280-300) Calcium (8.6-10.3) mg/dL Troponin I (< 0.04) ng/mL B-Natriuretic Peptide (Less than 100) pg/mL
[2018-03-29 16:39] LABS: Basophils % 0.6 %; Eosinophils # 0.5 K/mcL (0.0-0.6); Eosinophils % 7.9 %; Hematocrit 36.5 % (35.3-44.9); Hemoglobin 11.4 g/dL (11.5-15.4); Immature Granulocytes % 0.5 % (0-4); Lymphocytes # 1.4 K/mcL (0.6-4.6); Mean Corpuscular HGB Conc 31.2 g/dL (31.6-35.5); Mean Corpuscular Hemoglobin 30.2 pg (28.0-33.3); Mean Corpuscular Volume 96.8 fL (83.0-100.0); Mean Platelet Volume 11.9 fL (9.4-12.4); Monocytes # 0.4 K/mcL (0.0-1.3); Monocytes % 6.8 %; Neutrophils # 3.8 K/mcL (1.6-8.9); Platelet Count 124 K/mcL (140-400); Red Blood Count 3.77 M/mcL (3.82-4.97); Red Cell Distribution Width 12.3 % (11.5-14.5); Segmented Neutrophils % 61.2 %
[2018-03-29 16:53] LABS: Troponin I < 0.03 ng/mL (< 0.04)
[2018-03-29 16:54] LABS: BUN/Creatinine Ratio 29 (6-26); Blood Urea Nitrogen 37 mg/dL (8-23); Calcium 9.5 mg/dL (8.6-10.3); Carbon Dioxide 39 mEq/L (23-29); Chloride 97 mEq/L (98-107); Glucose 346 mg/dL (70-105); Osmolality,Calculated 308 (280-300); Potassium 4.6 mEq/L (3.5-5.1); Sodium 138 mEq/L (136-145); eGFR For African Americans 51 (> 60); eGFR For Non-African Americans 42 (> 60)
[2018-03-29 17:42] LABS: ABG Base Excess 12 mEq/L (-2 to 3); ABG HCO3 43 mEq/L (21-27); ABG Oxygen Saturation 95 % (95-98); ABG PCO2 102 mmHg (35-45); ABG PH 7.24 pH Units (7.32-7.45); ABG PO2 94 mmHg (85-104); ABG TCO2 46 mEq/L (20-26)
--- NOTE | 2018-03-29 18:26 | Emergency Department Note ---
Disposition Clinical Impression: Hypercapnia Disposition: Admitted As Inpatient Referrals: Aayush Chase MD [Primary Care Provider] - Forms: ED Satisfaction Letter General Adult HPI - General Chief complaint: ED Recheck/Abnormal Lab/Rx Stated complaint: CO2 levels elevated Time Seen by Provider: 03/29/18 15:59 - History of Present Illness Pain Scale: 6 - Related Data Home Medications Medication Instructions Recorded Confirmed Glimepiride [Amaryl] 4 mg PO QAM 04/06/16 03/29/18 Latanoprost [Xalatan] 1 drop BOTH EYES HS 04/06/16 03/29/18 Simvastatin [Zocor] 40 mg PO HS 04/06/16 03/29/18 SitaGLIPtin [Januvia] 100 mg PO DAILY 04/06/16 03/29/18 Albuterol Sulfate [Albuterol 2 puff IH Q4H PRN 04/14/17 03/29/18 Inhaler] Citalopram Hydrobromide 40 mg PO HS 04/14/17 03/29/18 [Citalopram HBr] Docusate [Colace] 100 mg PO DAILY 04/14/17 03/29/18 Gabapentin [Neurontin] 600 mg PO HS 04/14/17 03/29/18 Valsartan [Diovan] 80 mg PO DAILY 04/14/17 03/29/18 Spironolactone [Aldactone] 25 mg PO DAILY 07/24/17 03/29/18 Brimonidine 0.2% [Alphagan] 1 drop BOTH EYES AD 12/19/17 03/29/18 Propylene Glycol/Peg 400 [Systane 1 drop OP QID 12/19/17 03/29/18 Ultra 0.4-0.3% Eye Drp] Esomeprazole Magnesium [Nexium] 40 mg PO DAILY 03/29/18 03/29/18 Furosemide [Lasix] 40 mg PO BID 03/29/18 03/29/18 Ibandronate Sodium [Boniva] 150 mg PO QMONTH 03/29/18 03/29/18 Previous Rx's Medication Instructions Recorded Ipratropium/Albuterol Neb [Duoneb] 3 ml IH [id number] PRN inhsol 01/18/18 Iron Polysaccharide Complex 150 mg PO DAILY capsule 01/18/18 [Ferrex 150] Omeprazole [PriLOSEC] 40 mg PO DAILY@0630 capsule. 01/18/18 clonazePAM [Klonopin] 0.5 mg PO BID PRN 2 Days #4 tablet 01/18/18 Ascorbic Acid [Vitamin C] 500 mg PO 0630 #30 tablet 01/25/18 Isosorbide MONOnitrate (24 HR) 30 mg PO DAILY #30 tab.er.24h 01/25/18 [Imdur] Allergies Allergy/AdvReac Type Severity Reaction Status Date / Time hydrocodone [From Vicodin] AdvReac Nausea Verified 12/19/17 12:48 Hydromorphone [From Dilaudid] AdvReac Nausea Verified 12/19/17 12:48 Past Medical History - Past Medical History Medical history: Reports: CHF, COPD, diabetes, fibromyalgia, hyperlipidemia, hypertension Surgical history: Reports: no surgical history Psychiatric history: Reports: anxiety, depression - Social History Smoking Status: Never smoker Smokeless Tobacco Status: No Alcohol use: Reports: none Drug use: Reports: none Course Vital Signs Temperature 98 F 03/29/18 15:57 Pulse Rate 67 03/29/18 15:57 Respiratory Rate 18 03/29/18 15:57 Blood Pressure 143/77 03/29/18 15:57 O2 Sat by Pulse Oximetry 99 03/29/18 15:57 Temperature 98 F 03/29/18 16:03 Pulse Rate 70 03/29/18 17:36 Respiratory Rate 23 03/29/18 18:05 Blood Pressure 151/69 03/29/18 18:05 O2 Sat by Pulse Oximetry 98 03/29/18 18:05 Oxygen Delivery Oxygen Delivery Room Air Medical Decision Making - Lab Data Result diagrams: 03/29/18 16:15 03/29/18 16:15 Lab Results 03/29/18 03/29/18 03/29/18 Range/Units 16:14 16:15 16:15 WBC 6.2 (4.3-11.1) K/mcL RBC 3.77 L (3.82-4.97) M/mcL Hgb 11.4 L (11.5-15.4) g/dL Hct 36.5 (35.3-44.9) % MCV 96.8 (83.0-100.0) fL MCH 30.2 (28.0-33.3) pg MCHC 31.2 L (31.6-35.5) g/dL RDW 12.3 (11.5-14.5) % Plt Count 124 L (140-400) K/mcL MPV 11.9 (9.4-12.4) fL Immature Gran % 0.5 (0-4) % Seg Neutrophils % 61.2 % Lymphocytes % 23.0 % Monocytes % 6.8 % Eosinophils % 7.9 % Basophils % 0.6 % Neutrophils # 3.8 (1.6-8.9) K/mcL Lymphocytes # 1.4 (0.6-4.6) K/mcL Monocytes # 0.4 (0.0-1.3) K/mcL Eosinophils # 0.5 (0.0-0.6) K/mcL Basophils # 0.0 (0.0-0.2) K/mcL Sample Site ABG pH (7.32-7.45) pH Units ABG pCO2 (35-45) mmHg ABG pO2 (85-104) mmHg ABG HCO3 (21-27) mEq/L ABG Total CO2 (20-26) mEq/L ABG O2 Saturation (95-98) % ABG Base Excess (-2 to 3) mEq/L Bran Test O2 Delivery Device Inspired O2 (1-15=lpm [id number]=%) Sodium 138 (136-145) mEq/L Potassium 4.6 (3.5-5.1) mEq/L Chloride 97 L (98-107) mEq/L Carbon Dioxide 39 H (23-29) mEq/L BUN 37 H (8-23) mg/dL Creatinine 1.28 H (0.60-1.20) mg/dL Est GFR ( Amer) 51 L (> 60) Est GFR (Non-Af Amer) 42 L (> 60) BUN/Creatinine Ratio 29 H (6-26) Glucose 346 H (70-105) mg/dL Calculated Osmolality 308 H (280-300) Calcium 9.5 (8.6-10.3) mg/dL Troponin I < 0.03 (< 0.04) ng/mL B-Natriuretic Peptide 123 H (Less than 100) pg/mL 03/29/18 Range/Units 17:36 WBC (4.3-11.1) K/mcL RBC (3.82-4.97) M/mcL Hgb (11.5-15.4) g/dL Hct (35.3-44.9) % MCV (83.0-100.0) fL MCH (28.0-33.3) pg MCHC (31.6-35.5) g/dL RDW (11.5-14.5) % Plt Count (140-400) K/mcL MPV (9.4-12.4) fL Immature Gran % (0-4) % Seg Neutrophils % % Lymphocytes % % Monocytes % % Eosinophils % % Basophils % % Neutrophils # (1.6-8.9) K/mcL Lymphocytes # (0.6-4.6) K/mcL Monocytes # (0.0-1.3) K/mcL Eosinophils # (0.0-0.6) K/mcL Basophils # (0.0-0.2) K/mcL Sample Site R Radial ABG pH 7.24 L (7.32-7.45) pH Units ABG pCO2 102 H* (35-45) mmHg ABG pO2 94 (85-104) mmHg ABG HCO3 43 H (21-27) mEq/L ABG Total CO2 46 H (20-26) mEq/L ABG O2 Saturation 95 (95-98) % ABG Base Excess 12 H (-2 to 3) mEq/L Bran Test Positive O2 Delivery Device Cannula Inspired O2 2.0 (1-15=lpm [id number]=%) Sodium (136-145) mEq/L Potassium (3.5-5.1) mEq/L Chloride (98-107) mEq/L Carbon Dioxide (23-29) mEq/L BUN (8-23) mg/dL Creatinine (0.60-1.20) mg/dL Est GFR ( Amer) (> 60) Est GFR (Non-Af Amer) (> 60) BUN/Creatinine Ratio (6-26) Glucose (70-105) mg/dL Calculated Osmolality (280-300) Calcium (8.6-10.3) mg/dL Troponin I (< 0.04) ng/mL B-Natriuretic Peptide (Less than 100) pg/mL Attestation Statement - Attestation Attestation: I examined this patient and my medical decision-making was reviewed with the Resident Physician. I agree with the documented findings, disposition and treatment plan as described except to the extent set forth below. 62 year old female presntes to the ED from her PCP office for hypercapnia and drowsiness. Gabriela has a CO2 odf 100 and we have placed her on bipap. Painet is easily arousable. WE will continue with cardiopulmonary workup and then admit to medicine. We will re-evlaute on bipap to assess for CO2 level
[2018-03-29 18:37] LABS: ABG Base Excess 12 mEq/L (-2 to 3); ABG HCO3 43 mEq/L (21-27); ABG Oxygen Saturation 92 % (95-98); ABG PCO2 94 mmHg (35-45); ABG PH 7.27 pH Units (7.32-7.45); ABG PO2 79 mmHg (85-104); ABG TCO2 46 mEq/L (20-26); Blood Gas Modality CPAP/PS; Blood Gas PEEP 8 cm H2O; Blood Gas Pressure Support 16 cm H2O
--- NOTE | 2018-03-29 19:59 | Internal Med History&Physical ---
<Margarito Mauricio - Last Filed: 03/29/18 20:29> Date of Encounter: 03/29/18 Time of Encounter: 19:59 Assessment and Plan (1) Acute on chronic respiratory failure with hypoxia and hypercapnia Current visit: Yes Status: Acute 1. Multifactorial including COPD, CHF, and poorly treated, sleep apnea 2. Per family, patient is supposed to be using BiPAP at night, but has been unable to because home health will not send the proper sized mask 3. We will get social work consult to try and get this straightened out to avoid readmission for something that should be easily avoidable 4. Patient wheezing throughout and it quite tight, will give 125mg Solu-medrol IV now and 3 DuoNebs and then have Albuterol PRN wheezing 5. Suspecting combination between COPD and AIMEE, less likely CHF based on CXR and clinical volume status (overall dry) 6. Gentle rehydration for MARIFER in setting of h/o CHF 7. Patient will be on BiPAP at least overnight and repeat ABG in AM or sooner if deteriorates. Do not suspect need for intubation as she is A/O x3 but will monitor closely 8. Low suspicion for PNA, as she is afebrile, normal WBC, no productive cough 9. Will cover with azithromycin for COPD exacerbation more for anti- inflammatory effects than ABX coverage (2) Renal failure (ARF), acute on chronic Current visit: Yes Status: Resolved 1. Slightly elevated but much better than baseline, will continue to monitor/ trend 2. Gentle IVF rehydration Qualifiers: Acute renal failure type: unspecified Chronic kidney disease stage: unspecified stage Qualified Code(s): N17.9 - Acute kidney failure, unspecified ; N18.9 - Chronic kidney disease, unspecified (3) AIMEE (obstructive sleep apnea) Current visit: No Status: Chronic 1. Likely the underlying cause of her acute on chronic resp failure as described above. 2. Patient has been unable to use her BiPAP/CPAP at night because home health keeps sending her the incorrect size mask. 3. Social work consult to get this worked out (4) Hypertension Current visit: No Status: Chronic 1. Will resume home meds when able 2. Monitor vitals Qualifiers: Hypertension type: essential hypertension Qualified Code(s): I10 - Essential (primary) hypertension (5) Diabetes Current visit: No Status: Chronic 1. Will place on SSI while NPO on BiPAP then resume home meds when able Qualifiers: Diabetes mellitus type: type 2 Diabetes mellitus custodial insulin use: without custodial use Diabetes mellitus complication status: with kidney complications Diabetes mellitus complication detail: with chronic kidney disease Chronic kidney disease stage: stage 3 (moderate) Qualified Code(s): E11.22 - Type 2 diabetes mellitus with diabetic chronic kidney disease; N18.3 - Chronic kidney disease, stage 3 (moderate); N18.3 - Chronic kidney disease, stage 3 (moderate) Internal Medicine - H&P: HPI Chief complaint: elevated CO2 Admitted From: Emergency Dept Plans for Post Hospital Care: Home History of present illness: Ms. Cox is a 62 year old female with history of extensive COPD, CHF, diabetes , hypertension, fibromyalgia. She went to her PCP office today for being slightly sleepier than usual. She does have a history of sleep apnea and is supposed to be wearing her CPAP at night, but sometimes does not. Her ECG said that she did seem slightly sleepier than usual and sent her to the ER. Her PCO2 was elevated and she was slightly acidotic consistent with a primary respiratory acidosis. She is placed on BiPAP and has been doing incredibly well since then. Just after a few minutes her pH has improved and her PCO2 is coming down. She states other than feeling slightly fatigued. She has had no change in her baseline symptoms. She denies any fever, chills, abdominal pain, nausea, vomiting, diarrhea, melena, hematochezia, or dysuria. She does state that she has some chest tightness that is consistent with her COPD and has had a nonproductive cough. She states that her shortness of breath is about baseline. She does not take steroids every day and has been using her nebulizer treatments without much relief. 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 Psychiatric history: anxiety, depression - Past Surgical History Surgical History: no surgical history Additional surgical history: Knee scope - Social History Smoking Status: Never smoker Smokeless Tobacco Status: No Alcohol use: none Drug use: none - Family History Father Family Member Ethnicity: Non- Living Status: Hx Family Cardiac Disorders: Yes ([place], HTN) Brother Family Member Ethnicity: Non- Living Status: Still Living Hx Family GI Disorders: Yes Sister Family Member Ethnicity: Non- Living Status: Hx Family Cardiac Disorders: Yes ([place], HTN) Mother Adopted: No Family Member Ethnicity: Non- Living Status: Hx Family Cardiac Disorders: Yes (HTN, CHF) Hx Family Respiratory Disorders: Yes (COPD) Hx Family Cancer: Yes (skin) Hx Family GI Disorders: No Hx Family Endocrine Disorder: Yes (DM) Hx Family Neuromuscular Disorders: No Hx Family Neurologic Disorders: Yes (CVA with rt sided weakness) Hx Family HEENT Disorders: Yes ([place]) Hx Family Autoimmune Disorders: No Internal Medicine - H&P: Meds Glimepiride [Amaryl] 4 mg PO QAM 04/06/16 [History] Latanoprost [Xalatan] 1 drop BOTH EYES HS 04/06/16 [History] Simvastatin [Zocor] 40 mg PO HS 04/06/16 [History] SitaGLIPtin [Januvia] 100 mg PO DAILY 04/06/16 [History] Albuterol Sulfate [Albuterol Inhaler] 2 puff IH Q4H PRN 04/14/17 [History] Citalopram Hydrobromide [Citalopram HBr] 40 mg PO HS 04/14/17 [History] Docusate [Colace] 100 mg PO DAILY 04/14/17 [History] Gabapentin [Neurontin] 600 mg PO HS 04/14/17 [History] Valsartan [Diovan] 80 mg PO DAILY 04/14/17 [History] Spironolactone [Aldactone] 25 mg PO DAILY 07/24/17 [History] Brimonidine 0.2% [Alphagan] 1 drop BOTH EYES AD 12/19/17 [History] Propylene Glycol/Peg 400 [Systane Ultra 0.4-0.3% Eye Drp] 1 drop OP QID [History] Ipratropium/Albuterol Neb [Duoneb] 3 ml IH [id number] PRN inhsol 01/18/18 [Rx] Iron Polysaccharide Complex [Ferrex 150] 150 mg PO DAILY capsule 01/18/18 [Rx] Omeprazole [PriLOSEC] 40 mg PO DAILY@0630 capsule.dr 01/18/18 [Rx] clonazePAM [Klonopin] 0.5 mg PO BID PRN 2 Days #4 tablet 01/18/18 [Rx] Ascorbic Acid [Vitamin C] 500 mg PO 0630 #30 tablet 01/25/18 [Rx] Isosorbide MONOnitrate (24 HR) [Imdur] 30 mg PO DAILY #30 tab.er.24h 01/25/18 [ Rx] Esomeprazole Magnesium [Nexium] 40 mg PO DAILY 03/29/18 [History] Furosemide [Lasix] 40 mg PO BID 03/29/18 [History] Ibandronate Sodium [Boniva] 150 mg PO QMONTH 03/29/18 [History] 3 Allergy/AdvReac Type Severity Reaction Status Date / Time hydrocodone [From Vicodin] AdvReac Nausea Verified 12/19/17 12:48 Hydromorphone [From Dilaudid] AdvReac Nausea Verified 12/19/17 12:48 All Systems PM: A 10-system review of systems was performed and is negative for pertinent findings except as documented above in the HPI. Review of systems: As reviewed in the HPI. All other systems reviewed are negative or normal. - Constitutional Vitals: Temp Pulse Resp BP Pulse Ox 98 F 65 18 151/83 96 03/29/18 16:03 03/29/18 18:52 03/29/18 18:52 03/29/18 18:52 03/29/18 18:53 General appearance: Present: cooperative, A&O X 3, morbidly obese, pleasant, no acute distress - Head Head exam: Present: atraumatic, normocephalic - Eye Eye exam: Present: PERRL, conjuntiva pink, sclera anicteric Pupils: Present: PERRL - Neck Neck exam general surgery: Present: supple, trachea midline. Absent: lymphadenopathy - Respiratory Respiratory exam: Present: CTAB, wheezes (Throughout all lung desai, inspiratory and expiratory). Absent: accessory muscle use, rales, rhonchi - Cardiovascular Cardiovascular exam: Present: RRR, +S1, +S2. Absent: diastolic murmur, gallop, rubs, systolic murmur - GI/Abdominal GI/Abdominal exam: Present: normal bowel sounds, soft, no peritoneal signs. Absent: distended, tenderness - Extremities Exam Extremities exam: Present: normal capillary refill, pedal edema, warm, radial pulses palpable and symmetrical. Absent: calf tenderness, cyanotic - Neurological Exam Neurological exam: Present: CN II-XII intact, oriented X3, no focal deficits. Absent: pronater drift, facial droop, speech deficit - Skin Skin exam: Present: dry, intact Internal Med - H&P Results - Labs CBC & Chem 7: 03/29/18 16:15 03/29/18 16:15 <Saleem Carlos - Last Filed: 03/29/18 20:52> Date of Encounter: 03/29/18 Internal Medicine - H&P: HPI History of present illness: Ms. Cox is a 62 year old female All Systems PM: A 10-system review of systems was performed and is negative for pertinent findings except as documented above in the HPI. - Constitutional Vitals: Temp Pulse Resp BP Pulse Ox 97.5 F L 70 24 168/77 98 03/29/18 20:31 03/29/18 20:31 03/29/18 20:31 03/29/18 20:31 03/29/18 20:31 Internal Med - H&P Results - Labs CBC & Chem 7: 03/29/18 16:15 03/29/18 16:15 - Attending Attestation I have seen and examined this patient independently. I have discussed with resident physician Dr. Mauricio regarding the management plan. Agree with the documentation.
[2018-03-29] MEDS ORDERED: Naloxone 0.4 MG/ML INJ IVP PRN (20:31)
[2018-03-29] MEDS ORDERED: Albuterol 2.5 MG/3 ML NEBULIZER IH PRN (20:31)
[2018-03-29] MEDS ORDERED: Ipratropium/Albuterol Neb 3 ML IH STA (20:31)
[2018-03-29] MEDS ORDERED: methylPREDNISolone 125 MG/2 ML VIAL IVP ONE (20:36)
[2018-03-29] MEDS ORDERED: Dextrose Gel 15 GM/37.5 ML TUBE PO PRN ×2 (20:49)
[2018-03-29] MEDS ORDERED: *HR* Dextrose 50 % in Water (Syg) 50 ML SYRINGE IVP PRN (20:49)
[2018-03-29] MEDS ORDERED: D5% in Water 1,000 ML IVC PRN (20:49)
[2018-03-29] MEDS ORDERED: Ipratropium/Albuterol Neb 3 ML IH PRN (20:54)
[2018-03-29] MEDS ORDERED: Levofloxacin 500 MG/100 ML 500 MG/100 ML BAG IVPB SCH (21:00)
[2018-03-29] MEDS ORDERED: clonazePAM 0.5 MG TABLET PO PRN (21:24)
[2018-03-29] MEDS: Nystatin POWDER 30 GM BOTTLE TP SCH (21:41)
[2018-03-29 21:43] LABS: Magnesium 1.9 mg/dL (1.6-2.6); Phosphorous 3.7 mg/dL (2.7-4.5)
[2018-03-29] MEDS: Furosemide 40 MG TABLET PO SCH (21:44)
[2018-03-29] MEDS: Azithromycin 500 MG in D5% in Water 250 ML IVPB SCH (21:45)
[2018-03-29] MEDS: Gabapentin 300 MG CAPSULE PO SCH (21:45)
[2018-03-29] MEDS: Ringers Solution, Lactated 1,000 ML IVC SCH (21:45)
[2018-03-29] MEDS: Acetaminophen 325 MG TABLET PO PRN (21:52)
[2018-03-29] MEDS: Latanoprost 2.5 ML BOTTLE BOTH EYES SCH (21:59)
[2018-03-29] MEDS ORDERED: Ondansetron 4 MG/2 ML VIAL IVP ONE (22:08)
[2018-03-30] MEDS: MethylPREDNISolone 40 MG/ML VIAL IVP SCH ×2 (00:01→05:52)
[2018-03-30] MEDS: Insulin LISPRO 300 UNITS/3 ML VIAL SQ SCH ×4 (00:01→16:51)
[2018-03-30 03:29] LABS: Basophils % 0.2 %; Hematocrit 31.9 % (35.3-44.9); Hemoglobin 10.1 g/dL (11.5-15.4); Immature Granulocytes % 0.3 % (0-4); Immature Platelets 8.8 % (1.1-6.1); Lymphocytes # 0.5 K/mcL (0.6-4.6); Mean Corpuscular HGB Conc 31.7 g/dL (31.6-35.5); Mean Corpuscular Hemoglobin 30.2 pg (28.0-33.3); Mean Corpuscular Volume 95.5 fL (83.0-100.0); Monocytes % 0.5 %; Neutrophils # 8.1 K/mcL (1.6-8.9); Platelet Count 107 K/mcL (140-400); Red Blood Count 3.34 M/mcL (3.82-4.97); Red Cell Distribution Width 12.1 % (11.5-14.5)
[2018-03-30 03:56] LABS: Calcium 9.4 mg/dL (8.6-10.3); Potassium 4.4 mEq/L (3.5-5.1)
[2018-03-30 05:31] LABS: ABG Base Excess 15 mEq/L (-2 to 3); ABG HCO3 45 mEq/L (21-27); ABG Oxygen Saturation 95 % (95-98); ABG PCO2 91 mmHg (35-45); ABG PO2 90 mmHg (85-104); ABG TCO2 48 mEq/L (20-26); Blood Gas Modality BiLevel; Blood Gas PEEP 8 cm H2O
[2018-03-30] MEDS: *HR* Heparin 5,000 UNIT/ML VIAL SQ SCH ×2 (05:52→16:45)
[2018-03-30] MEDS: Valsartan 80 MG TABLET PO SCH (08:20)
[2018-03-30] MEDS: *HR* Glimepiride 4 MG TABLET PO SCH (08:20)
[2018-03-30] MEDS: Furosemide 40 MG TABLET PO SCH ×2 (08:20→22:01)
[2018-03-30] MEDS: Isosorbide MONOnitrate (24 HR) 30 MG TAB.ER.24H PO SCH (08:20)
[2018-03-30] MEDS: Spironolactone 25 MG TABLET PO SCH (08:21)
[2018-03-30] MEDS: Iron Polysaccharide Complex 150 MG CAPSULE PO SCH (08:21)
[2018-03-30] MEDS: Nystatin POWDER 30 GM BOTTLE TP SCH ×3 (08:22→22:01)
--- NOTE | 2018-03-30 08:54 | Internal Med Progress Note ---
Date of Encounter: 03/30/18 Time of Encounter: 08:50 - Assessment and plan (1) Acute on chronic respiratory failure with hypoxia and hypercapnia Current Visit: Yes Status: Acute Assessment and plan: Continue nebs, steroids and antibiotics. On BIPAP. F/U repeat ABG (2) AIMEE (obstructive sleep apnea) Current Visit: No Status: Chronic Assessment and plan: Continue BIPAP (3) Acute exacerbation of chronic obstructive pulmonary disease (COPD) Current Visit: Yes Status: Acute Assessment and plan: See #1 (4) DVT prophylaxis Current Visit: Yes Status: Acute Assessment and plan: Continue heparin (5) MARIFER (acute kidney injury) Current Visit: No Status: Acute Assessment and plan: Continue IV fluids. Creatinine improved (6) Hypertension Current Visit: No Status: Chronic Assessment and plan: Continue valsartan Qualifiers: Hypertension type: essential hypertension Qualified Code(s): I10 - Essential (primary) hypertension - Time Spent With Patient Total time spent is greater than 50% in coordination of care (as documented) at patient's floor/unit and/or counseling patient: - Subjective Interval history: No acute events overnight - Constitutional Vitals: Temp Pulse Resp BP Pulse Ox 97.9 F 65 17 129/60 98 03/30/18 07:30 03/30/18 08:35 03/30/18 06:00 03/30/18 06:00 03/30/18 06:00 General appearance: Present: cooperative, A&O X 3, morbidly obese, pleasant, no acute distress - Head Head exam: Present: atraumatic, normocephalic - Eye Eye exam: Present: PERRL, conjuntiva pink, sclera anicteric Pupils: Present: PERRL - Neck Neck exam general surgery: Present: supple, trachea midline. Absent: lymphadenopathy - Respiratory Respiratory exam: Present: CTAB. Absent: accessory muscle use, rales, rhonchi, wheezes - Cardiovascular Cardiovascular exam: Present: RRR, +S1, +S2. Absent: diastolic murmur, gallop, rubs, systolic murmur - GI/Abdominal GI/Abdominal exam: Present: normal bowel sounds, soft, no peritoneal signs. Absent: distended, tenderness - Extremities Exam Extremities exam: Present: warm, radial pulses palpable and symmetrical. Absent : calf tenderness, cyanotic, pedal edema - Neurological Exam Neurological exam: Present: CN II-XII intact, oriented X3, no focal deficits. Absent: pronater drift, facial droop, speech deficit - Skin Skin exam: Present: dry, intact Internal Medicine: Result - Labs CBC & Chem 7: 03/30/18 03:14 03/30/18 03:14 Labs: Short CBC 03/30/18 Range/Units 03:14 WBC 8.7 (4.3-11.1) K/mcL Hgb 10.1 L (11.5-15.4) g/dL Hct 31.9 L (35.3-44.9) % Plt Count 107 L (140-400) K/mcL Neutrophils # 8.1 (1.6-8.9) K/mcL BMP 03/30/18 03:14 Sodium 140 Potassium 4.4 Chloride 98 Carbon Dioxide 39 H BUN 34 H Creatinine 1.17 Glucose 250 H Calcium 9.4 Cardiac Enzymes 03/30/18 Range/Units 02:45 Troponin I < 0.03 (< 0.04) ng/mL - ABG Interpretation ABG results: ABG ABG pH 7.30 pH Units (7.32-7.45) L 03/30/18 05:27 ABG pCO2 91 mmHg (35-45) H* 03/30/18 05:27 ABG pO2 90 mmHg (85-104) 03/30/18 05:27 ABG O2 Saturation 95 % (95-98) 03/30/18 05:27 Consult Discharge Plan - Plan Referrals: Aayush Chase MD [Primary Care Provider] -
[2018-03-30] MEDS: cefTRIAXone 1,000 MG in Water for inj. (sterile) 20 ML 10 ML IVP SCH (09:48)
[2018-03-30] MEDS: Ringers Solution, Lactated 1,000 ML IVC SCH (09:49)
[2018-03-30] MEDS: Ipratropium/Albuterol Neb 3 ML IH SCH ×4 (11:14→23:46)
[2018-03-30] MEDS: Acetaminophen 325 MG TABLET PO PRN (14:21)
[2018-03-30] MEDS: methylPREDNISolone 125 MG/2 ML VIAL IVP SCH ×2 (16:45→23:08)
--- NOTE | 2018-03-30 17:57 | Electrocardiograph Report ---
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
[2018-03-30] MEDS: Latanoprost 2.5 ML BOTTLE BOTH EYES SCH (22:01)
[2018-03-30] MEDS: Gabapentin 300 MG CAPSULE PO SCH (22:01)
[2018-03-30] MEDS: Azithromycin 500 MG in D5% in Water 250 ML IVPB SCH (22:02)
[2018-03-30] MEDS ORDERED: Insulin LISPRO 300 UNITS/3 ML VIAL SQ SCH (22:30)
[2018-03-31] MEDS ORDERED: Insulin DETEMIR 100 UNIT/ML X5UNITS SQ ONE
[2018-03-31] MEDS: Ipratropium/Albuterol Neb 3 ML IH SCH ×3 (03:26→11:06)
[2018-03-31 03:58] LABS: Hematocrit 29.9 % (35.3-44.9); Hemoglobin 9.5 g/dL (11.5-15.4); Immature Granulocytes % 0.4 % (0-4); Lymphocytes # 0.6 K/mcL (0.6-4.6); Lymphocytes % 9.6 %; Mean Corpuscular HGB Conc 31.8 g/dL (31.6-35.5); Mean Corpuscular Volume 94.3 fL (83.0-100.0); Mean Platelet Volume 12.1 fL (9.4-12.4); Monocytes # 0.1 K/mcL (0.0-1.3); Monocytes % 1.2 %; Neutrophils # 5.9 K/mcL (1.6-8.9); Platelet Count 104 K/mcL (140-400); Red Blood Count 3.17 M/mcL (3.82-4.97); Red Cell Distribution Width 12.3 % (11.5-14.5); Segmented Neutrophils % 88.8 %
[2018-03-31 04:14] LABS: Calcium 9.2 mg/dL (8.6-10.3); Potassium 4.5 mEq/L (3.5-5.1)
[2018-03-31] MEDS: *HR* Heparin 5,000 UNIT/ML VIAL SQ SCH (06:04)
[2018-03-31] MEDS: Furosemide 40 MG TABLET PO SCH (08:39)
[2018-03-31] MEDS: Valsartan 80 MG TABLET PO SCH (08:39)
[2018-03-31] MEDS: *HR* Glimepiride 4 MG TABLET PO SCH (08:39)
[2018-03-31] MEDS: Isosorbide MONOnitrate (24 HR) 30 MG TAB.ER.24H PO SCH (08:39)
[2018-03-31] MEDS: Iron Polysaccharide Complex 150 MG CAPSULE PO SCH (08:39)
[2018-03-31] MEDS: cefTRIAXone 1,000 MG in Water for inj. (sterile) 20 ML 10 ML IVP SCH (08:39)
[2018-03-31] MEDS: methylPREDNISolone 125 MG/2 ML VIAL IVP SCH (08:39)
[2018-03-31] MEDS: Spironolactone 25 MG TABLET PO SCH (08:39)
[2018-03-31] MEDS: Nystatin POWDER 30 GM BOTTLE TP SCH (08:40)
[2018-03-31] MEDS: Insulin LISPRO 300 UNITS/3 ML VIAL SQ SCH ×2 (08:40→12:31)
[2018-03-31] MEDS: Acetaminophen 325 MG TABLET PO PRN (08:45)
--- NOTE | 2018-03-31 11:29 | Discharge Summary ---
Orders not resulted at time of discharge: Pending orders 03/31/18 11:15 ABG [Arterial Blood Gas] Routine 04/01/18 04:00 Basic Metabolic Panel AM 0400 CBC [Complete Blood Count] [HEME] AM 0400 04/02/18 04:00 Basic Metabolic Panel AM 0400 CBC [Complete Blood Count] [HEME] AM 0400 04/03/18 04:00 Basic Metabolic Panel AM 0400 CBC [Complete Blood Count] [HEME] AM 0400 04/04/18 04:00 Basic Metabolic Panel AM 0400 CBC [Complete Blood Count] [HEME] AM 0400 04/05/18 04:00 Basic Metabolic Panel AM 0400 CBC [Complete Blood Count] [HEME] AM 0400 Date of Encounter: 03/31/18 Time of Encounter: 11:25 - Discharge Diagnosis (1) Acute on chronic respiratory failure with hypoxia and hypercapnia Priority: Primary Status: Acute Assessment and Plan: 62 year old female with history of extensive COPD, CHF, diabetes, hypertension, fibromyalgia. She went to her PCP office today for being slightly sleepier than usual. She does have a history of sleep apnea and is supposed to be wearing her CPAP at night, but sometimes does not. Her PCP said that she seemed slightly sleepier than usual and sent her to the ER. Her PCO2 was elevated and she was slightly acidotic consistent with a primary respiratory acidosis. She is placed on BiPAP and assessed with acute hypoxic hyperapneic respiratory failur 2/2 to acute COPD exacerbation and worsening of obstructive sleep apnea She was admitted to the ICU for a high CO 2 of 104 and started on BIPAP and nebs , steroids and antibiotics. With BIPAP and steroids and nebs, her CO 2lebvels trended down and she was more alert. She complained of not having a well fitting facemask for her BIPAP machine at home as well as not knowing the correct settings for her BIPAP. She was shipped a new face mask and advised of the correcting settings for her BiPAP by respiratory. She was discharged in a stable condition. 35 minutes was spent discharging this patient (2) AIMEE (obstructive sleep apnea) Priority: Secondary Status: Chronic (3) Acute exacerbation of chronic obstructive pulmonary disease (COPD) Priority: Secondary Status: Acute (4) DVT prophylaxis Priority: Secondary Status: Acute (5) MARIFER (acute kidney injury) Priority: Secondary Status: Acute (6) Hypertension Priority: Secondary Status: Chronic Qualifiers: Hypertension type: essential hypertension Qualified Code(s): I10 - Essential (primary) hypertension Hospital course: Ms. Cox is a 62 year old female - Time Spent with Patient Total time spent providing and/or coordinating discharge services: - Discharge Medications Prescriptions: Levofloxacin [Levaquin] 750 mg PO DAILY 3 Days #3 tablet Nystatin POWDER [Nystop] 1 appl TP TID #30 bottle predniSONE [PredniSONE] 40 mg PO DAILY #5 tablet Home Medications: Glimepiride [Amaryl] 4 mg PO QAM 04/06/16 [History] Latanoprost [Xalatan] 1 drop BOTH EYES HS 04/06/16 [History] Simvastatin [Zocor] 40 mg PO HS 04/06/16 [History] SitaGLIPtin [Januvia] 100 mg PO DAILY 04/06/16 [History] Albuterol Sulfate [Albuterol Inhaler] 2 puff IH Q4H PRN 04/14/17 [History] Citalopram Hydrobromide [Citalopram HBr] 40 mg PO HS 04/14/17 [History] Docusate [Colace] 100 mg PO DAILY 04/14/17 [History] Gabapentin [Neurontin] 600 mg PO HS 04/14/17 [History] Valsartan [Diovan] 80 mg PO DAILY 04/14/17 [History] Spironolactone [Aldactone] 25 mg PO DAILY 07/24/17 [History] Brimonidine 0.2% [Alphagan] 1 drop BOTH EYES AD 12/19/17 [History] Propylene Glycol/Peg 400 [Systane Ultra 0.4-0.3% Eye Drp] 1 drop OP QID [History] Ipratropium/Albuterol Neb [Duoneb] 3 ml IH [id number] PRN inhsol 01/18/18 [Rx] Iron Polysaccharide Complex [Ferrex 150] 150 mg PO DAILY capsule 01/18/18 [Rx] Omeprazole [PriLOSEC] 40 mg PO DAILY@0630 capsule.dr 01/18/18 [Rx] clonazePAM [Klonopin] 0.5 mg PO BID PRN 2 Days #4 tablet 01/18/18 [Rx] Ascorbic Acid [Vitamin C] 500 mg PO 0630 #30 tablet 01/25/18 [Rx] Isosorbide MONOnitrate (24 HR) [Imdur] 30 mg PO DAILY #30 tab.er.24h 01/25/18 [ Rx] Esomeprazole Magnesium [Nexium] 40 mg PO DAILY 03/29/18 [History] Furosemide [Lasix] 40 mg PO BID 03/29/18 [History] Ibandronate Sodium [Boniva] 150 mg PO QMONTH 03/29/18 [History] Levofloxacin [Levaquin] 750 mg PO DAILY 3 Days #3 tablet 03/31/18 [Rx] Nystatin POWDER [Nystop] 1 appl TP TID #30 bottle 03/31/18 [Rx] predniSONE [PredniSONE] 40 mg PO DAILY #5 tablet 03/31/18 [Rx] Allergies/Adverse Reactions: 3 Allergy/AdvReac Type Severity Reaction Status Date / Time hydrocodone [From Vicodin] AdvReac Nausea Verified 12/19/17 12:48 Hydromorphone [From Dilaudid] AdvReac Nausea Verified 12/19/17 12:48 Date of admission: 03/29/18 20:50 Primary care physician: Aayush Chase MD Consults: 03/31/18 11:11 Consult to Physical Therapy [CONS] Routine Comment: Evaluate, develop and implement POC Reason for Consult: weakness Does patient have active BEDREST order?: No Is patient medically & hemodynamically stable?: No - Constitutional Vitals: Temp Pulse Resp BP Pulse Ox 98.4 F 86 16 124/61 98 03/31/18 08:00 03/31/18 08:00 03/31/18 08:00 03/31/18 08:00 03/31/18 08:00 General appearance: Present: cooperative, A&O X 3, morbidly obese, pleasant, no acute distress - Patient Status Disposition: Home Health Service Condition: Fair - Discharge Instructions Instructions: Prednisone (By mouth), Nystatin (On the skin), Levofloxacin (By mouth), Acute Respiratory Distress Syndrome (DC) Follow Up With: Aayush Chase MD [Primary Care Provider] - 04/07/18 1:00 pm
[2018-03-31 11:39] VITALS: BP 117/59
[2018-03-31 11:55] LABS: ABG Base Excess 15 mEq/L (-2 to 3); ABG HCO3 43 mEq/L (21-27); ABG Oxygen Saturation 98 % (95-98); ABG PCO2 76 mmHg (35-45); ABG PH 7.36 pH Units (7.32-7.45); ABG PO2 106 mmHg (85-104); ABG TCO2 45 mEq/L (20-26)
--- NOTE | 2018-03-31 13:07 | Physician Discharge Referral ---
Home Health/Hosp Referral Info Transfer to: Home Health - Diagnosis (1) Acute on chronic respiratory failure with hypoxia and hypercapnia Priority: Primary Status: Acute (2) AIMEE (obstructive sleep apnea) Status: Chronic (3) Acute exacerbation of chronic obstructive pulmonary disease (COPD) Status: Acute (4) DVT prophylaxis Status: Acute (5) MARIFER (acute kidney injury) Status: Acute (6) Hypertension Status: Chronic - Respiratory Orders Smoking Cessation: Smoking cessation has been advised. For more information, call the [place] Tobacco Quit Line at 7-430-KJPK-NOW. - Diet/Nutrition Diet/Nutrition Orders: Cardiac - Activity Activity Orders: Ambulate - Services Needed Following services are medically necessary services: Nursing, Home Health Aide, Physical Therapy - Transfer Medications Prescriptions: Levofloxacin [Levaquin] 750 mg PO DAILY 3 Days #3 tablet Nystatin POWDER [Nystop] 1 appl TP TID #30 bottle predniSONE [PredniSONE] 40 mg PO DAILY #5 tablet Home Medications: Glimepiride [Amaryl] 4 mg PO QAM 04/06/16 [History] Latanoprost [Xalatan] 1 drop BOTH EYES HS 04/06/16 [History] Simvastatin [Zocor] 40 mg PO HS 04/06/16 [History] SitaGLIPtin [Januvia] 100 mg PO DAILY 04/06/16 [History] Albuterol Sulfate [Albuterol Inhaler] 2 puff IH Q4H PRN 04/14/17 [History] Citalopram Hydrobromide [Citalopram HBr] 40 mg PO HS 04/14/17 [History] Docusate [Colace] 100 mg PO DAILY 04/14/17 [History] Gabapentin [Neurontin] 600 mg PO HS 04/14/17 [History] Valsartan [Diovan] 80 mg PO DAILY 04/14/17 [History] Spironolactone [Aldactone] 25 mg PO DAILY 07/24/17 [History] Brimonidine 0.2% [Alphagan] 1 drop BOTH EYES AD 12/19/17 [History] Propylene Glycol/Peg 400 [Systane Ultra 0.4-0.3% Eye Drp] 1 drop OP QID [History] Ipratropium/Albuterol Neb [Duoneb] 3 ml IH [id number] PRN inhsol 01/18/18 [Rx] Iron Polysaccharide Complex [Ferrex 150] 150 mg PO DAILY capsule 01/18/18 [Rx] Omeprazole [PriLOSEC] 40 mg PO DAILY@0630 capsule. 01/18/18 [Rx] clonazePAM [Klonopin] 0.5 mg PO BID PRN 2 Days #4 tablet 01/18/18 [Rx] Ascorbic Acid [Vitamin C] 500 mg PO 0630 #30 tablet 01/25/18 [Rx] Isosorbide MONOnitrate (24 HR) [Imdur] 30 mg PO DAILY #30 tab.er.24h 01/25/18 [ Rx] Esomeprazole Magnesium [Nexium] 40 mg PO DAILY 03/29/18 [History] Furosemide [Lasix] 40 mg PO BID 03/29/18 [History] Ibandronate Sodium [Boniva] 150 mg PO QMONTH 03/29/18 [History] Levofloxacin [Levaquin] 750 mg PO DAILY 3 Days #3 tablet 03/31/18 [Rx] Nystatin POWDER [Nystop] 1 appl TP TID #30 bottle 03/31/18 [Rx] predniSONE [PredniSONE] 40 mg PO DAILY #5 tablet 03/31/18 [Rx] Allergies/Adverse Reactions: 3 Allergy/AdvReac Type Severity Reaction Status Date / Time hydrocodone [From Vicodin] AdvReac Nausea Verified 12/19/17 12:48 Hydromorphone [From Dilaudid] AdvReac Nausea Verified 12/19/17 12:48 Certification: Further, I certify that my clinical findings support that this patient is homebound (i.e. absences from home require considerable and taxing effort and are for medical reasons or mandaen services or infrequently or short duration when for other reasons) because: Homebound Reason: Patient requires assistance of a person or device to safely leave home Attestation: My signature below is to certify that this patient is under my care and that I, or nurse practitioner, or a physician's senior office support assistant sosa working with me, has a face-to -face encounter with this patient.
[2018-04-01] MEDS ORDERED: predniSONE 20 MG TABLET PO SCH (09:00)
== END 2018-03-31 13:38 | disposition home health service (06) | DRG 190 ==
LOC: ICNU 15:52 → EMEROO 15:52 → ICNU 20:12 → 2NNU 03-30 21:53
PROVIDERS: ADMIT Hospitalist; ATTEND Hospitalist

== ENCOUNTER 2018-05-01 15:12 | Inpatient (IN) ==
[2018-05-01 16:30] LABS: Basophils % 0.3 %; Hematocrit 31.6 % (35.3-44.9); Hemoglobin 9.8 g/dL (11.5-15.4); Immature Granulocytes % 0.6 % (0-4); Lymphocytes # 1.3 K/mcL (0.6-4.6); Mean Corpuscular Hemoglobin 29.6 pg (28.0-33.3); Mean Corpuscular Volume 95.5 fL (83.0-100.0); Mean Platelet Volume 11.8 fL (9.4-12.4); Monocytes # 1.1 K/mcL (0.0-1.3); Monocytes % 11.3 %; Neutrophils # 7.5 K/mcL (1.6-8.9); Platelet Count 148 K/mcL (140-400); Red Blood Count 3.31 M/mcL (3.82-4.97); Red Cell Distribution Width 13.1 % (11.5-14.5); Segmented Neutrophils % 74.8 %
[2018-05-01 16:49] LABS: BUN/Creatinine Ratio 15 (6-26); Blood Urea Nitrogen 16 mg/dL (8-23); Calcium 8.9 mg/dL (8.6-10.3); Carbon Dioxide 34 mEq/L (23-29); Chloride 98 mEq/L (98-107); Glucose 311 mg/dL (70-105); Osmolality,Calculated 295 (280-300); Potassium 4.3 mEq/L (3.5-5.1); Sodium 136 mEq/L (136-145); Troponin I < 0.03 ng/mL (< 0.04); eGFR For African Americans > 60 (> 60); eGFR For Non-African Americans 50 (> 60)
[2018-05-01] MEDS ORDERED: Ipratropium/Albuterol Neb 3 ML IH ONE (16:51)
[2018-05-01] MEDS ORDERED: methylPREDNISolone 125 MG/2 ML VIAL IVP STA (16:52)
[2018-05-01] MEDS ORDERED: dilTIAZem HCl 60 MG TABLET PO STA (17:14)
[2018-05-01] MEDS ORDERED: 0.9 % Sodium Chloride 500 ML IVC ONE (17:17)
--- NOTE | 2018-05-01 17:39 | Emergency Department Note ---
Disposition Clinical Impression: Afib, SOB (shortness of breath), COPD (chronic obstructive pulmonary disease) Disposition: Admitted As Inpatient Condition: Fair Referrals: Aayush Chase MD [Primary Care Provider] - Forms: ED Satisfaction Letter Time of Disposition: 18:59 General Adult HPI - General Chief complaint: ED Shortness of Breath/Dyspnea Stated complaint: BALB[place] Time Seen by Provider: 05/01/18 15:56 Source: patient, family Limitations: no limitations - History of Present Illness Pain Scale: 8 - Related Data Home Medications Medication Instructions Recorded Confirmed Glimepiride [Amaryl] 4 mg PO QAM 04/06/16 03/29/18 Latanoprost [Xalatan] 1 drop BOTH EYES HS 04/06/16 03/29/18 Simvastatin [Zocor] 40 mg PO HS 04/06/16 03/29/18 SitaGLIPtin [Januvia] 100 mg PO DAILY 04/06/16 03/29/18 Albuterol Sulfate [Albuterol 2 puff IH Q4H PRN 04/14/17 03/29/18 Inhaler] Citalopram Hydrobromide 40 mg PO HS 04/14/17 03/29/18 [Citalopram HBr] Docusate [Colace] 100 mg PO DAILY 04/14/17 03/29/18 Gabapentin [Neurontin] 600 mg PO HS 04/14/17 03/29/18 Valsartan [Diovan] 80 mg PO DAILY 04/14/17 03/29/18 Spironolactone [Aldactone] 25 mg PO DAILY 07/24/17 03/29/18 Brimonidine 0.2% [Alphagan] 1 drop BOTH EYES AD 12/19/17 03/29/18 Propylene Glycol/Peg 400 [Systane 1 drop OP QID 12/19/17 03/29/18 Ultra 0.4-0.3% Eye Drp] Esomeprazole Magnesium [Nexium] 40 mg PO DAILY 03/29/18 03/29/18 Furosemide [Lasix] 40 mg PO BID 03/29/18 03/29/18 Ibandronate Sodium [Boniva] 150 mg PO QMONTH 03/29/18 03/29/18 Previous Rx's Medication Instructions Recorded Ipratropium/Albuterol Neb [Duoneb] 3 ml IH [id number] PRN inhsol 01/18/18 Iron Polysaccharide Complex 150 mg PO DAILY capsule 01/18/18 [Ferrex 150] Omeprazole [PriLOSEC] 40 mg PO DAILY@0630 capsule. 01/18/18 Ascorbic Acid [Vitamin C] 500 mg PO 0630 #30 tablet 01/25/18 Isosorbide MONOnitrate (24 HR) 30 mg PO DAILY #30 tab.er.24h 01/25/18 [Imdur] Allergies Allergy/AdvReac Type Severity Reaction Status Date / Time hydrocodone [From Vicodin] AdvReac Nausea Verified 12/19/17 12:48 Hydromorphone [From Dilaudid] AdvReac Nausea Verified 12/19/17 12:48 Past Medical History - Past Medical History Medical history: Reports: CHF, COPD, diabetes, fibromyalgia, hyperlipidemia, hypertension Surgical history: Reports: no surgical history Psychiatric history: Reports: anxiety, depression - Social History Smoking Status: Never smoker Smokeless Tobacco Status: No Alcohol use: Reports: none Drug use: Reports: none Physical Exam - General Limitations: no limitations General appearance: alert, in no apparent distress Course Vital Signs Temperature 98.2 F 05/01/18 15:14 Pulse Rate 130 05/01/18 15:14 Respiratory Rate 22 05/01/18 15:14 Blood Pressure 110/57 05/01/18 15:14 O2 Sat by Pulse Oximetry 99 05/01/18 15:14 Temperature 98.2 F 05/01/18 16:01 Pulse Rate 130 05/01/18 16:01 Respiratory Rate 22 05/01/18 17:33 Blood Pressure 110/57 05/01/18 16:01 O2 Sat by Pulse Oximetry 98 05/01/18 17:33 Oxygen Delivery Oxygen Delivery Nasal Cannula Medical Decision Making - Lab Data Result diagrams: 05/01/18 16:13 05/01/18 16:13 Lab Results 05/01/18 05/01/18 05/01/18 Range/Units 16:13 16:13 16:13 WBC 10.0 (4.3-11.1) K/mcL RBC 3.31 L (3.82-4.97) M/mcL Hgb 9.8 L (11.5-15.4) g/dL Hct 31.6 L (35.3-44.9) % MCV 95.5 (83.0-100.0) fL MCH 29.6 (28.0-33.3) pg MCHC 31.0 L (31.6-35.5) g/dL RDW 13.1 (11.5-14.5) % Plt Count 148 (140-400) K/mcL MPV 11.8 (9.4-12.4) fL Immature Gran % 0.6 (0-4) % Seg Neutrophils % 74.8 % Lymphocytes % 13.0 % Monocytes % 11.3 % Eosinophils % 0.0 % Basophils % 0.3 % Neutrophils # 7.5 (1.6-8.9) K/mcL Lymphocytes # 1.3 (0.6-4.6) K/mcL Monocytes # 1.1 (0.0-1.3) K/mcL Eosinophils # 0.0 (0.0-0.6) K/mcL Basophils # 0.0 (0.0-0.2) K/mcL PT (9.4-12.1) Seconds INR Heparin Anti-Xa, Unfract (0.30-0.70) IU/mL Sodium 136 (136-145) mEq/L Potassium 4.3 (3.5-5.1) mEq/L Chloride 98 (98-107) mEq/L Carbon Dioxide 34 H (23-29) mEq/L BUN 16 (8-23) mg/dL Creatinine 1.10 (0.60-1.20) mg/dL Est GFR ( Amer) > 60 (> 60) Est GFR (Non-Af Amer) 50 L (> 60) BUN/Creatinine Ratio 15 (6-26) Glucose 311 H (70-105) mg/dL Calculated Osmolality 295 (280-300) Lactic Acid 1.0 (0.5-2.2) mmol/L Calcium 8.9 (8.6-10.3) mg/dL Troponin I < 0.03 (< 0.04) ng/mL B-Natriuretic Peptide (Less than 100) pg/mL 05/01/18 05/01/18 Range/Units 16:13 18:29 WBC (4.3-11.1) K/mcL RBC (3.82-4.97) M/mcL Hgb (11.5-15.4) g/dL Hct (35.3-44.9) % MCV (83.0-100.0) fL MCH (28.0-33.3) pg MCHC (31.6-35.5) g/dL RDW (11.5-14.5) % Plt Count (140-400) K/mcL MPV (9.4-12.4) fL Immature Gran % (0-4) % Seg Neutrophils % % Lymphocytes % % Monocytes % % Eosinophils % % Basophils % % Neutrophils # (1.6-8.9) K/mcL Lymphocytes # (0.6-4.6) K/mcL Monocytes # (0.0-1.3) K/mcL Eosinophils # (0.0-0.6) K/mcL Basophils # (0.0-0.2) K/mcL PT 12.6 H (9.4-12.1) Seconds INR 1.1 Heparin Anti-Xa, Unfract 0.04 L (0.30-0.70) IU/mL Sodium (136-145) mEq/L Potassium (3.5-5.1) mEq/L Chloride (98-107) mEq/L Carbon Dioxide (23-29) mEq/L BUN (8-23) mg/dL Creatinine (0.60-1.20) mg/dL Est GFR ( Amer) (> 60) Est GFR (Non-Af Amer) (> 60) BUN/Creatinine Ratio (6-26) Glucose (70-105) mg/dL Calculated Osmolality (280-300) Lactic Acid (0.5-2.2) mmol/L Calcium (8.6-10.3) mg/dL Troponin I (< 0.04) ng/mL B-Natriuretic Peptide 265 H (Less than 100) pg/mL Attestation Statement - Attestation Attestation: I, Tod Johnson DO, examined this patient [id number] and my medical decision-making was reviewed with Dr. Millie Shah, Resident Physician. I agree with the documented findings, disposition and treatment plan as described except to the extent set forth below. Please see my progress notes for details. 62-year-old female presents emergency room at the request of her home health aid. Patient was found today and if at that she is having increased work of breathing. She has a history of congestive heart failure as well as COPD and emphysema. Patient has been feeling much more weak over the last several days. Yesterday she did not get out of bed and had her BiPAP on for approximately 14 hours and slept almost 20 hours straight. Currently she is denying chest pain fevers or chills nausea vomiting or diarrhea. Denies any headache or vision change. Her main complaint is shortness of breath some intermittent heaviness to the chest wall and feeling like she has gained a bunch of weight. On physical exam the patient is lying on her left side in the bed pulse ox is normal her heart rate is elevated and her heart beat appears to be irregular. Patient has no specific history of atrial fibrillation is not currently on a blood thinners. Lungs are diminished bilaterally worse on the right than the left. No specific wheezing noted at this time. Abdomen is soft nontender nondistended no guarding no rigidity no peritoneal symptoms. No rashes or lesions noted on quick external evaluation at this time. Patient does have bilateral lower extremity swelling with pitting presentation up to the bilateral knee. She denies any trauma or injuries. No falls or otherwise noted. No gross deformity noted. Patient will have breathing treatments steroids provided this time. She will also have detailed evaluation for infectious etiology including chest x-ray CBC chemistry electrolytes including magnesium and calcium and liver function testing. Correlation studies will be added on. Patient will then be started on a Cardizem drip and heparin drip as well as is no bleeding noted during the evaluation. She is currently denying any blood in her urine vaginal bleeding or rectal bleeding at this time. She has no history of bleeding ulcers or gastroesophageal related issues.. Disposition will be admission the hospital for symptomatic control reevaluation. Otherwise patient is clinically stable. See detailed documentation of the physical exam, medical intervention, medical decision- making and disposition in the resident physician's note. The patient's treatment course at this time. 1745 Patient has slightly elevated BNP. Chronic right-sided diaphragmatic hernia noted that appears to be similar to previous x-rays. Patient's heart rate is being titrated down at this time with Cardizem. Patient has had some mild symptomatically with increased work of breathing with the breathing treatments. BiPAP was offered but she declined at this time. Heart rate will be controlled and admission process to be established what appears to be new onset A. fib. Heparin drip will be ordered. 1850 Patient's PTT is normal. Hospitalist reviewed the case and no other recommendations this time. Heparin drip has been started as well as a Cardizem bolus. Patient will be observed here in the emergency room until admission process is completed.
[2018-05-01] MEDS ORDERED: *HR* Heparin 5,000 UNIT/ML VIAL IVP PRN ×4 (17:54→18:00)
[2018-05-01] MEDS ORDERED: *HR* Heparin 5,000 UNIT/ML VIAL IVP ONE ×2 (17:54→18:00)
[2018-05-01] MEDS ORDERED: Heparin 25,000 UNIT/500 ML D5W 25,000 UNIT/500 ML BAG IVC SCH ×2 (18:00→18:30)
[2018-05-01] MEDS ORDERED: Heparin 25,000 UNIT/500 ML D5W 25,000 UNIT/500 ML BAG IVC STA (18:00)
[2018-05-01] MEDS ORDERED: Aspirin 81 MG TAB.CHEW PO STA (18:04)
[2018-05-01 18:51] LABS: Heparin anti-factor XA UFH 0.04 IU/mL (0.30-0.70); INR 1.1; Prothrombin Time 12.6 Seconds (9.4-12.1)
--- NOTE | 2018-05-01 18:59 | Emergency Department Note ---
Disposition Clinical Impression: SOB (shortness of breath), Acute exacerbation of chronic obstructive airways disease, Atrial fibrillation with RVR Afib Qualifiers: Atrial fibrillation type: unspecified Qualified Code(s): I48.91 - Unspecified atrial fibrillation COPD (chronic obstructive pulmonary disease) Qualifiers: COPD type: COPD with acute exacerbation Qualified Code(s): J44.1 - Chronic obstructive pulmonary disease with (acute) exacerbation Disposition: Admitted As Inpatient Condition: Good Referrals: Aayush Chase MD [Primary Care Provider] - Forms: ED Satisfaction Letter Time of Disposition: 18:30 SOB HPI - General Chief Complaint: ED Shortness of Breath/Dyspnea Stated Complaint: [place] Time Seen by Provider: 05/01/18 15:56 Source: patient, family Limitations: no limitations Nursing Notes Reviewed: Yes Vital Signs Reviewed: Yes - History of Present Illness Pt is a 62 year old female that reports shortness of breath since Tuesday. She was seen by her home health aide this morning who told her she needed to be evaluated at the hospital. She states that she has felt that she cannot breath as easy as normal. She reports her sputum is green and she has developed a new runny nose, although she has chronic sinus issues. She also states that she has been having more shortness of breath getting around. Her legs are chronically swollen and she states that they seem about as swollen as normal, although they hurt more. She also reports a 3lb weight gain in the last three days. She denies chest pain, nausea, vomiting, and diarrhea. She states she is chronically constipated and has to take a laxative to have a bowel movement. She does not report a change in diet, or a change in the amount of fluid she takes in per day. - Related Data Home Medications Medication Instructions Recorded Confirmed Glimepiride [Amaryl] 4 mg PO QA 04/06/16 05/01/18 Latanoprost [Xalatan] 1 drop BOTH EYES HS 04/06/16 05/01/18 Simvastatin [Zocor] 40 mg PO 04/06/16 05/01/18 SitaGLIPtin [Januvia] 100 mg PO DAILY 04/06/16 05/01/18 Albuterol Sulfate [Albuterol 2 puff IH Q4H PRN 04/14/17 05/01/18 Inhaler] Citalopram Hydrobromide 40 mg PO 04/14/17 05/01/18 [Citalopram HBr] Docusate [Colace] 100 mg PO DAILY 04/14/17 05/01/18 Gabapentin [Neurontin] 600 mg PO HS 04/14/17 05/01/18 Valsartan [Diovan] 80 mg PO DAILY 04/14/17 05/01/18 Spironolactone [Aldactone] 25 mg PO DAILY 07/24/17 05/01/18 Brimonidine 0.2% [Alphagan] 1 drop BOTH EYES AD 12/19/17 05/01/18 Propylene Glycol/Peg 400 [Systane 1 drop OP QID 12/19/17 05/01/18 Ultra 0.4-0.3% Eye Drp] Esomeprazole Magnesium [Nexium] 40 mg PO DAILY 03/29/18 05/01/18 Furosemide [Lasix] 40 mg PO BID 03/29/18 05/01/18 Ibandronate Sodium [Boniva] 150 mg PO QMONTH 03/29/18 05/01/18 Previous Rx's Medication Instructions Recorded Ipratropium/Albuterol Neb [Duoneb] 3 ml IH [id number] PRN inhsol 01/18/18 Iron Polysaccharide Complex 150 mg PO DAILY capsule 01/18/18 [Ferrex 150] Omeprazole [PriLOSEC] 40 mg PO DAILY@0630 capsule.dr 01/18/18 Ascorbic Acid [Vitamin C] 500 mg PO 0630 #30 tablet 01/25/18 Isosorbide MONOnitrate (24 HR) 30 mg PO DAILY #30 tab.er.24h 01/25/18 [Imdur] Allergies Allergy/AdvReac Type Severity Reaction Status Date / Time hydrocodone [From Vicodin] AdvReac Nausea Verified 12/19/17 12:48 Hydromorphone [From Dilaudid] AdvReac Nausea Verified 12/19/17 12:48 All systems ED: reviewed and negative except as stated. Constitutional: Reports: weakness, weight change (3 lb in three days). Denies: fever, chills Eyes: Denies: eye pain, eye discharge, vision change Cardiovascular: Reports: dyspnea on exertion Respiratory: Reports: cough, dyspnea. Denies: hemoptysis Gastrointestinal: Reports: constipation (chronic). Denies: abdominal pain, nausea, vomiting, diarrhea Neurological: Reports: weakness. Denies: headache Past Medical History - Past Medical History Medical history: Reports: CHF, COPD, diabetes, fibromyalgia, hyperlipidemia, hypertension Surgical history: Reports: no surgical history Psychiatric history: Reports: anxiety, depression - Social History Smoking Status: Never smoker Smokeless Tobacco Status: No Alcohol use: Reports: none Drug use: Reports: none Physical Exam - General Limitations: no limitations General appearance: alert, in no apparent distress - Head Head exam: atraumatic, normocephalic, normal inspection - Eye Eye exam: Present: normal appearance, PERRL, EOMI - ENT ENT exam: normal exam, normal oropharynx, mucous membranes moist - Chest Chest inspection: Present: normal inspection, symmetric chest wall rise - Respiratory Respiratory exam: Present: normal lung sounds bilaterally - Cardiovascular Cardiovascular exam: Present: irregular rhythm - Abdominal Exam Abdominal exam: Present: soft, Non-Tender Course - Consultations Consultation #1: Dr Umanzor accepts the pt Time: 17:30 Vital Signs Temperature 98.2 F 05/01/18 15:14 Pulse Rate 130 05/01/18 15:14 Respiratory Rate 22 05/01/18 15:14 Blood Pressure 110/57 05/01/18 15:14 O2 Sat by Pulse Oximetry 99 05/01/18 15:14 Temperature 98.2 F 05/01/18 16:01 Pulse Rate 111 05/01/18 20:02 Respiratory Rate 24 05/01/18 20:02 Blood Pressure 110/81 05/01/18 20:02 O2 Sat by Pulse Oximetry 97 05/01/18 20:02 Oxygen Delivery Oxygen Delivery Nasal Cannula Shortness of Breath/Dyspnea - [facility] Narrative Medical decision making narrative: Pt is a 62 year old female with a pmh of COPD with previous exacerbations. She came in today with a three day history of increased shortness of breath during rest and exertion. EKG revealed atrial fibrillation which was not present on previous EKG's. Her labs were sent for coagulation studies and came back within normal limits. She was started on immediate release oral cardizem to rate control her Afib with RVR and she was started on a heparin drip. She was given a duoneb and a dose of solumedrol to assist with her shortness of breath. She will be admitted for exacerbation of COPD and new onset atrial fibrillation. The patient's heart rate did come down some while she was in the department. Her saturation remained stable on 4L of o2 by nasal canula. The pt was given an opportunity to ask question and all of her concerns were addressed. - Differential Diagnosis Likely: acute exacerbation of chronic obstructive airways disease, arrhythmia - Medical Records Medical records reviewed: Yes I reviewed the patient's medical records. - Lab Data Lab results reviewed: Yes I reviewed the patient's lab results. Result diagrams: 05/01/18 16:13 05/01/18 16:13 Lab Results 05/01/18 05/01/18 05/01/18 Range/Units 16:13 16:13 16:13 WBC 10.0 (4.3-11.1) K/mcL RBC 3.31 L (3.82-4.97) M/mcL Hgb 9.8 L (11.5-15.4) g/dL Hct 31.6 L (35.3-44.9) % MCV 95.5 (83.0-100.0) fL MCH 29.6 (28.0-33.3) pg MCHC 31.0 L (31.6-35.5) g/dL RDW 13.1 (11.5-14.5) % Plt Count 148 (140-400) K/mcL MPV 11.8 (9.4-12.4) fL Immature Gran % 0.6 (0-4) % Seg Neutrophils % 74.8 % Lymphocytes % 13.0 % Monocytes % 11.3 % Eosinophils % 0.0 % Basophils % 0.3 % Neutrophils # 7.5 (1.6-8.9) K/mcL Lymphocytes # 1.3 (0.6-4.6) K/mcL Monocytes # 1.1 (0.0-1.3) K/mcL Eosinophils # 0.0 (0.0-0.6) K/mcL Basophils # 0.0 (0.0-0.2) K/mcL PT (9.4-12.1) Seconds INR Heparin Anti-Xa, Unfract (0.30-0.70) IU/mL Sodium 136 (136-145) mEq/L Potassium 4.3 (3.5-5.1) mEq/L Chloride 98 (98-107) mEq/L Carbon Dioxide 34 H (23-29) mEq/L BUN 16 (8-23) mg/dL Creatinine 1.10 (0.60-1.20) mg/dL Est GFR ( Amer) > 60 (> 60) Est GFR (Non-Af Amer) 50 L (> 60) BUN/Creatinine Ratio 15 (6-26) Glucose 311 H (70-105) mg/dL Est Mean Plasma Glucose mg/dl Hemoglobin A1c ( - 5.6) % Calculated Osmolality 295 (280-300) Lactic Acid 1.0 (0.5-2.2) mmol/L Calcium 8.9 (8.6-10.3) mg/dL Troponin I < 0.03 (< 0.04) ng/mL B-Natriuretic Peptide (Less than 100) pg/mL 05/01/18 05/01/18 05/01/18 Range/Units 16:13 16:13 18:29 WBC (4.3-11.1) K/mcL RBC (3.82-4.97) M/mcL Hgb (11.5-15.4) g/dL Hct (35.3-44.9) % MCV (83.0-100.0) fL MCH (28.0-33.3) pg MCHC (31.6-35.5) g/dL RDW (11.5-14.5) % Plt Count (140-400) K/mcL MPV (9.4-12.4) fL Immature Gran % (0-4) % Seg Neutrophils % % Lymphocytes % % Monocytes % % Eosinophils % % Basophils % % Neutrophils # (1.6-8.9) K/mcL Lymphocytes # (0.6-4.6) K/mcL Monocytes # (0.0-1.3) K/mcL Eosinophils # (0.0-0.6) K/mcL Basophils # (0.0-0.2) K/mcL PT 12.6 H (9.4-12.1) Seconds INR 1.1 Heparin Anti-Xa, Unfract 0.04 L (0.30-0.70) IU/mL Sodium (136-145) mEq/L Potassium (3.5-5.1) mEq/L Chloride (98-107) mEq/L Carbon Dioxide (23-29) mEq/L BUN (8-23) mg/dL Creatinine (0.60-1.20) mg/dL Est GFR ( Amer) (> 60) Est GFR (Non-Af Amer) (> 60) BUN/Creatinine Ratio (6-26) Glucose (70-105) mg/dL Est Mean Plasma Glucose 258 mg/dl Hemoglobin A1c 10.6 H ( - 5.6) % Calculated Osmolality (280-300) Lactic Acid (0.5-2.2) mmol/L Calcium (8.6-10.3) mg/dL Troponin I (< 0.04) ng/mL B-Natriuretic Peptide 265 H (Less than 100) pg/mL - Radiology Data Radiology results reviewed: Yes I reviewed the patient's radiology results. Chest X-Ray 05/01/18 15:16 IMPRESSION: No acute abnormality. Large right-sided diaphragmatic hernia again identified with leftward mediastinal shift. D/ / 05/01/2018 16:26:49 Eusebio Kumar MD / [facility] Interpreting Provider: Eusebio Kumar MD - EKG Data EKG attestation: Yes I reviewed and interpreted this EKG. EKG results narrative: Ventricular rate 114, rhythm is abnormal. [place] is normal. The pt appears to be in atrial fibrillation with rapid ventricular response. No ST segment elevation or depression is evident. Attestation Statement - Attestation Attestation: I, Tod Johnson DO, examined this patient [id number] and my medical decision-making was reviewed with Dr. Millie Shah, Resident Physician. I agree with the documented findings, disposition and treatment plan as described except to the extent set forth below. Please see my progress notes for details.
[2018-05-01] MEDS ORDERED: Naloxone 0.4 MG/ML INJ IVP PRN (19:24)
[2018-05-01] MEDS ORDERED: D5% in Water 1,000 ML IVC PRN (19:34)
[2018-05-01] MEDS ORDERED: *HR* Dextrose 50 % in Water (Syg) 50 ML SYRINGE IVP PRN (19:34)
[2018-05-01] MEDS ORDERED: Dextrose Gel 15 GM/37.5 ML TUBE PO PRN ×2 (19:34)
[2018-05-01 19:50] LABS: Estimated Average Glucose 258 mg/dl; Hemoglobin A1C 10.6 %
[2018-05-01] MEDS ORDERED: Levofloxacin 750 MG/150 ML 750 MG/150 ML BAG IVPB SCH (20:00)
[2018-05-01 20:49] LABS: Thyroid Stimulating Hormone 2.035 mcIU/mL (0.340-5.600)
[2018-05-01] MEDS ORDERED: Artificial Tears SOLN 15 ML BOTTLE OP PRN (21:00)
[2018-05-01] MEDS: Budesonide/Formoterol 160/4.5 MDI IH SCH (21:57)
[2018-05-01] MEDS: Ipratropium/Albuterol Neb 3 ML IH SCH ×2 (21:57→23:34)
--- NOTE | 2018-05-01 22:16 | Internal Med History&Physical ---
Date of Encounter: 05/01/18 Time of Encounter: 22:00 Internal Medicine - H&P: HPI Chief complaint: Shortness of breath and rapid heart beat History of present illness: Ms. Cox is a 62 year old female with pmh of diabetes, COPD on 4L of oxygen presenting with complaints of shortness of breath, wheezing and coughing of 1 day duration. she says she was sitting in a couh at home when her model home sales greeter noticed she was short of breath. Her aid took her pulse and said it was in the 130s and advised her to come to the ER. She has been having occasional cough productive of greenish phlegm and intermittent wheezing. She also admits to some palpitations. She denies any nausea and vomiting. 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 Psychiatric history: anxiety, depression - Past Surgical History Surgical History: no surgical history Additional surgical history: Knee scope - Social History Smoking Status: Never smoker Smokeless Tobacco Status: No Alcohol use: none Drug use: none - Family History Father Family Member Ethnicity: Non- Living Status: Hx Family Cardiac Disorders: Yes ([place], HTN) Brother Family Member Ethnicity: Non- Living Status: Still Living Hx Family GI Disorders: Yes Sister Family Member Ethnicity: Non- Living Status: Hx Family Cardiac Disorders: Yes ([place], HTN) Mother Adopted: No Family Member Ethnicity: Non- Living Status: Hx Family Cardiac Disorders: Yes (HTN, CHF) Hx Family Respiratory Disorders: Yes (COPD) Hx Family Cancer: Yes (skin) Hx Family GI Disorders: No Hx Family Endocrine Disorder: Yes (DM) Hx Family Neuromuscular Disorders: No Hx Family Neurologic Disorders: Yes (CVA with rt sided weakness) Hx Family HEENT Disorders: Yes ([place]) Hx Family Autoimmune Disorders: No Internal Medicine - H&P: Meds Glimepiride [Amaryl] 4 mg PO QAM 04/06/16 [History] Latanoprost [Xalatan] 1 drop BOTH EYES HS 04/06/16 [History] Simvastatin [Zocor] 40 mg PO HS 04/06/16 [History] SitaGLIPtin [Januvia] 100 mg PO DAILY 04/06/16 [History] Albuterol Sulfate [Albuterol Inhaler] 2 puff IH Q4H PRN 04/14/17 [History] Citalopram Hydrobromide [Citalopram HBr] 40 mg PO HS 04/14/17 [History] Docusate [Colace] 100 mg PO DAILY 04/14/17 [History] Gabapentin [Neurontin] 600 mg PO HS 04/14/17 [History] Valsartan [Diovan] 80 mg PO DAILY 04/14/17 [History] Spironolactone [Aldactone] 25 mg PO DAILY 07/24/17 [History] Brimonidine 0.2% [Alphagan] 1 drop BOTH EYES AD 12/19/17 [History] Propylene Glycol/Peg 400 [Systane Ultra 0.4-0.3% Eye Drp] 1 drop OP QID [History] Ipratropium/Albuterol Neb [Duoneb] 3 ml IH [id number] PRN inhsol 01/18/18 [Rx] Iron Polysaccharide Complex [Ferrex 150] 150 mg PO DAILY capsule 01/18/18 [Rx] Omeprazole [PriLOSEC] 40 mg PO DAILY@0630 capsule.dr 01/18/18 [Rx] Ascorbic Acid [Vitamin C] 500 mg PO 0630 #30 tablet 01/25/18 [Rx] Isosorbide MONOnitrate (24 HR) [Imdur] 30 mg PO DAILY #30 tab.er.24h 01/25/18 [ Rx] Esomeprazole Magnesium [Nexium] 40 mg PO DAILY 03/29/18 [History] Furosemide [Lasix] 40 mg PO BID 03/29/18 [History] Ibandronate Sodium [Boniva] 150 mg PO QMONTH 03/29/18 [History] 3 Allergy/AdvReac Type Severity Reaction Status Date / Time hydrocodone [From Vicodin] AdvReac Nausea Verified 12/19/17 12:48 Hydromorphone [From Dilaudid] AdvReac Nausea Verified 12/19/17 12:48 All Systems PM: A 10-system review of systems was performed and is negative for pertinent findings except as documented above in the HPI. - Constitutional Constitutional: no chills, no fever(s), no night sweats - EENT Eyes: no change in vision, no discharge, no pain, no photophobia Ears: no ear discharge, no ear pain, no tinnitus Nose, mouth and throat: no dysphagia, no nasal discharge, no neck pain, no sore throat - Cardiovascular Cardiovascular ROS IM: irregular heart rhythm, palpitations, no chest pain, no diaphoresis, no dyspnea, no lightheadedness, no syncope - Respiratory Respiratory: cough, wheezing, no dyspnea, no excessive phlegm production - Gastrointestinal Gastrointestinal: no abdominal pain, no diarrhea, no hematemesis, no hematochezia, no melena, no nausea, no vomiting - Genitourinary Genitourinary: no change in urinary stream, no dysuria, no flank pain, no hematuria - Musculoskeletal Musculoskeletal ROS IM: no numbness, no tingling - Integumentary Integumentary IM: no rash, no unusual bruising - Neurological Neurological ROS: no confusion, no convulsions, no focal weakness, no numbness, no tingling, no tremor(s) - Hematologic/Lymphatic Hematologic/Lymphatic: no easy bruising - Constitutional Vitals: Temp Pulse Resp BP Pulse Ox 99.2 F 122 16 127/79 99 05/01/18 22:04 05/01/18 22:04 05/01/18 22:04 05/01/18 22:04 05/01/18 22:04 - Head Head exam: Present: atraumatic, normocephalic - Eye Eye exam: Present: PERRL, conjuntiva pink, sclera anicteric Pupils: Present: PERRL - Neck Neck exam general surgery: Present: supple, trachea midline. Absent: lymphadenopathy - Respiratory Respiratory exam: Present: wheezes. Absent: accessory muscle use, rales, rhonchi Additional comments: mild wheezes - Cardiovascular Cardiovascular exam: Present: RRR, +S1, +S2. Absent: diastolic murmur, gallop, rubs, systolic murmur - GI/Abdominal GI/Abdominal exam: Present: normal bowel sounds, soft, no peritoneal signs. Absent: distended, tenderness - Extremities Exam Extremities exam: Present: warm, radial pulses palpable and symmetrical. Absent : calf tenderness, cyanotic, pedal edema - Neurological Exam Neurological exam: Present: CN II-XII intact, oriented X3, no focal deficits. Absent: pronater drift, facial droop, speech deficit - Skin Skin exam: Present: dry, intact Internal Med - H&P Results - Labs CBC & Chem 7: 05/01/18 16:13 05/01/18 16:13 - Assessment and plan (1) Atrial fibrillation with RVR Current Visit: Yes Status: Acute Assessment and plan: New afib with RVR. Pt denies any pprevious diagnosis of afib. Started on heparin and cardizem drip. Has EZ score >2 with diabetes , hypertension, diastolic CHF. Obtain 2d echo. Plan to transition to po cardizem and xarelto (2) Acute exacerbation of chronic obstructive pulmonary disease (COPD) Current Visit: No Status: Acute Assessment and plan: On nebs steroids and antibiotics (3) Diastolic CHF Current Visit: No Status: Chronic Assessment and plan: Stable , continue po lasix. No acute exacerbation Qualifiers: Heart failure chronicity: chronic Qualified Code(s): I50.32 - Chronic diastolic (congestive) heart failure (4) Diabetes Current Visit: No Status: Chronic Assessment and plan: Continue insulin Qualifiers: Diabetes mellitus type: type 2 Diabetes mellitus usp insulin use: without usp use Diabetes mellitus complication status: with kidney complications Diabetes mellitus complication detail: with chronic kidney disease Chronic kidney disease stage: stage 3 (moderate) Qualified Code(s): E11.22 - Type 2 diabetes mellitus with diabetic chronic kidney disease; N18.3 - Chronic kidney disease, stage 3 (moderate); N18.3 - Chronic kidney disease, stage 3 (moderate) (5) Morbid obesity Current Visit: No Status: Chronic Assessment and plan: Diet and exercise (6) DVT prophylaxis Current Visit: No Status: Acute Assessment and plan: On heparin drip - Time Spent With Patient Total time spent is greater than 50% in coordination of care (as documented) at patient's floor/unit and/or counseling patient:
[2018-05-01] MEDS: Insulin LISPRO 300 UNITS/3 ML VIAL SQ SCH (22:49)
[2018-05-02] MEDS: Gabapentin 300 MG CAPSULE PO SCH ×2 (00:37→21:48)
[2018-05-02] MEDS ORDERED: Levofloxacin 750 MG/150 ML 750 MG/150 ML BAG IVPB SCH (01:00)
[2018-05-02] MEDS ORDERED: Artificial Tears SOLN 15 ML BOTTLE OP PRN (01:03)
[2018-05-02 01:42] LABS: Calcium 8.8 mg/dL (8.6-10.3); Magnesium 2.2 mg/dL (1.6-2.6); Phosphorous 3.1 mg/dL (2.7-4.5)
[2018-05-02 01:43] LABS: Basophils % 0.1 %; Hematocrit 31.2 % (35.3-44.9); Hemoglobin 9.7 g/dL (11.5-15.4); Immature Granulocytes % 0.8 % (0-4); Lymphocytes # 0.4 K/mcL (0.6-4.6); Lymphocytes % 3.4 %; Mean Corpuscular HGB Conc 31.1 g/dL (31.6-35.5); Mean Corpuscular Hemoglobin 29.8 pg (28.0-33.3); Mean Platelet Volume 12.7 fL (9.4-12.4); Monocytes # 0.2 K/mcL (0.0-1.3); Monocytes % 2.1 %; Neutrophils # 9.8 K/mcL (1.6-8.9); Platelet Count 137 K/mcL (140-400); Red Blood Count 3.25 M/mcL (3.82-4.97); Red Cell Distribution Width 12.8 % (11.5-14.5); Segmented Neutrophils % 93.6 %
[2018-05-02] MEDS ORDERED: SODIUM CHLORIDE 0.9% IVC SCH (02:45)
[2018-05-02] MEDS ORDERED: DILTIAZEM IVC SCH (02:45)
[2018-05-02] MEDS: Ipratropium/Albuterol Neb 3 ML IH SCH ×6 (03:27→23:43)
[2018-05-02] MEDS ORDERED: Insulin Human Regular 10 UNIT in 0.9 % Sodium Chloride 10 ML IV ONE (05:41)
[2018-05-02] MEDS ORDERED: MethylPREDNISolone 40 MG/ML VIAL IVP SCH ×2 (06:00)
--- NOTE | 2018-05-02 06:50 | Electrocardiograph Report ---
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
[2018-05-02] MEDS: Furosemide 40 MG TABLET PO SCH ×2 (08:26→17:32)
[2018-05-02] MEDS: Iron Polysaccharide Complex 150 MG CAPSULE PO SCH (08:26)
[2018-05-02] MEDS: Spironolactone 25 MG TABLET PO SCH (08:26)
[2018-05-02] MEDS: Isosorbide MONOnitrate (24 HR) 30 MG TAB.ER.24H PO SCH (08:26)
[2018-05-02] MEDS: *HR* Glimepiride 4 MG TABLET PO SCH (08:26)
[2018-05-02] MEDS: Insulin LISPRO 300 UNITS/3 ML VIAL SQ SCH ×3 (08:33→16:55)
--- NOTE | 2018-05-02 08:36 | Internal Med History&Physical ---
Date of Encounter: 05/02/18 Time of Encounter: 08:26 Internal Medicine - H&P: HPI Chief complaint: Shortness of Breath Admitted From: Home Plans for Post Hospital Care: Home History of present illness: Ms. Cox is a 62 year old female with a PMHx of COPD, AIMEE, AFib w RVR, and CHF presenting to [facility] on 05/01 for shortness of breath Patients shortness of breath started while she was at home on the couch talking to her home health nurse, she became short of breath with conversation and called PCP and came to hospital. Patients shortness of breath is aggravated by ADL's and ambulating in home with walker, does not leave home often. Relief with use of at home breathing treatments at these times, uses breathing treatment on average once daily. This is the first time she has presented to the hospital for shortness of breath , her last hospital visit was 2 months (November and December) at [facility] for a COPD exacerbation, patient felt confused and felt that CO2 was elevated at that time. 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 Psychiatric history: anxiety, depression - Past Surgical History Surgical History: no surgical history Additional surgical history: Knee scope - Social History Smoking Status: 2nd Hand Smoke Exposure (Secondhand smoke from mother and father for 18 years) Smokeless Tobacco Status: No Alcohol use: none Drug use: none - Family History Father Family Member Ethnicity: Non- Living Status: Hx Family Cardiac Disorders: Yes ([place], HTN) Hx Family Cancer: Yes (Prostate) Brother Family Member Ethnicity: Non- Living Status: Still Living Hx Family Cardiac Disorders: Yes (HTN) Hx Family GI Disorders: Yes Sister Family Member Ethnicity: Non- Living Status: Age at : 60 Hx Family Cardiac Disorders: Yes (HTN) Mother Adopted: No Family Member Ethnicity: Non- Living Status: Age at : 79 Hx Family Cardiac Disorders: Yes (HTN) Hx Family Respiratory Disorders: Yes (COPD) Hx Family Cancer: Yes (skin) Hx Family GI Disorders: No Hx Family Endocrine Disorder: Yes (DM) Hx Family Neuromuscular Disorders: No Hx Family Neurologic Disorders: Yes (CVA with rt sided weakness) Hx Family HEENT Disorders: Yes ([place]) Hx Family Autoimmune Disorders: No Internal Medicine - H&P: Meds Glimepiride [Amaryl] 4 mg PO QAM 04/06/16 [History] Latanoprost [Xalatan] 1 drop BOTH EYES HS 04/06/16 [History] Simvastatin [Zocor] 40 mg PO HS 04/06/16 [History] SitaGLIPtin [Januvia] 100 mg PO DAILY 04/06/16 [History] Albuterol Sulfate [Albuterol Inhaler] 2 puff IH Q4H PRN 04/14/17 [History] Citalopram Hydrobromide [Citalopram HBr] 40 mg PO HS 04/14/17 [History] Docusate [Colace] 100 mg PO DAILY 04/14/17 [History] Gabapentin [Neurontin] 600 mg PO HS 04/14/17 [History] Valsartan [Diovan] 80 mg PO DAILY 04/14/17 [History] Spironolactone [Aldactone] 25 mg PO DAILY 07/24/17 [History] Brimonidine 0.2% [Alphagan] 1 drop BOTH EYES AD 12/19/17 [History] Propylene Glycol/Peg 400 [Systane Ultra 0.4-0.3% Eye Drp] 1 drop OP QID [History] Ipratropium/Albuterol Neb [Duoneb] 3 ml IH [id number] PRN inhsol 01/18/18 [Rx] Iron Polysaccharide Complex [Ferrex 150] 150 mg PO DAILY capsule 01/18/18 [Rx] Omeprazole [PriLOSEC] 40 mg PO DAILY@0630 capsule.dr 01/18/18 [Rx] Ascorbic Acid [Vitamin C] 500 mg PO 0630 #30 tablet 01/25/18 [Rx] Isosorbide MONOnitrate (24 HR) [Imdur] 30 mg PO DAILY #30 tab.er.24h 01/25/18 [ Rx] Esomeprazole Magnesium [Nexium] 40 mg PO DAILY 03/29/18 [History] Furosemide [Lasix] 40 mg PO BID 03/29/18 [History] Ibandronate Sodium [Boniva] 150 mg PO QMONTH 03/29/18 [History] 3 Allergy/AdvReac Type Severity Reaction Status Date / Time hydrocodone [From Vicodin] AdvReac Nausea Verified 12/19/17 12:48 Hydromorphone [From Dilaudid] AdvReac Nausea Verified 12/19/17 12:48 All Systems PM: A 10-system review of systems was performed and is negative for pertinent findings except as documented above in the HPI. - Constitutional Constitutional: no chills - Cardiovascular Cardiovascular ROS IM: dyspnea on exertion, edema (ankles and calf), no palpitations - Respiratory Respiratory: dyspnea on exertion, wheezing, no hemoptysis, no pain on inspiration - Gastrointestinal Gastrointestinal: no constipation, no diarrhea, no hematochezia, no melena, no nausea, no vomiting - Genitourinary Genitourinary: no dysuria, no hematuria, no vaginal pruritis - Hematologic/Lymphatic Hematologic/Lymphatic: no easy bruising - Constitutional Vitals: Temp Pulse Resp BP Pulse Ox 97.2 F L 90 18 113/66 96 05/02/18 07:04 05/02/18 07:04 05/02/18 07:25 05/02/18 07:04 05/02/18 07:25 Internal Med - H&P Results - Labs CBC & Chem 7: 05/02/18 01:10 05/02/18 01:10 Labs: Short CBC 05/02/18 Range/Units 01:10 WBC 10.5 (4.3-11.1) K/mcL Hgb 9.7 L (11.5-15.4) g/dL Hct 31.2 L (35.3-44.9) % Plt Count 137 L (140-400) K/mcL Neutrophils # 9.8 H (1.6-8.9) K/mcL BMP 05/02/18 01:10 Sodium 136 Potassium 4.0 Chloride 98 Carbon Dioxide 29 BUN 19 Creatinine 1.19 Glucose 382 H Calcium 8.8 - Time Spent With Patient Total time spent is greater than 50% in coordination of care (as documented) at patient's floor/unit and/or counseling patient:
[2018-05-02] MEDS ORDERED: *HR* SitaGLIPtin 100 MG TABLET PO SCH (09:00)
[2018-05-02] MEDS ORDERED: Valsartan 80 MG TABLET PO SCH ×2 (09:00→09:43)
[2018-05-02] MEDS: Budesonide/Formoterol 160/4.5 MDI IH SCH ×2 (11:10→20:20)
[2018-05-02] MEDS ORDERED: Insulin DETEMIR 100 UNIT/ML X5UNITS SQ ONE (11:23)
--- NOTE | 2018-05-02 11:25 | Internal Med Progress Note ---
Date of Encounter: 05/02/18 Time of Encounter: 09:00 - Assessment and plan (1) Acute hypoxemic respiratory failure Current Visit: Yes Status: Resolved Assessment and plan: Likely secondary to acute AFIB with RVR, as well as underlying restrictive lung disease or possible COPD d/t passive smoke exposure Patient is comfortable on 4L nasal cannula, usually on 3L home so plan to wean. duonebs PRN Continue home symbicort (2) Atrial fibrillation with RVR Current Visit: Yes Status: Resolved Assessment and plan: Etiology unknown. Patient presented with HR in 130's, started on IV diltiazem 5mg/hr and heparin gtt. echo pending [id number] Vasc score of 4 points. still in Afib, but rate is controlled Start PO Diltiazem 30 mg Q6H and Xarelto for home anticoagulation (3) Diabetes Current Visit: Yes Status: Chronic Assessment and plan: Uncontrolled, with most recent A1C of 10.6 A1c 4 months ago was stable at 6.5 for few years, recently patient was hospitalized and started on steroids intermittently for past few months. Since this time patient has been hyperglycemic and unable to control glucose. Start basal insulin 25U Plan to discharge patient with basal insulin. F/U outpatient with PCP for basal , sliding scale dosing regimen Qualifiers: Diabetes mellitus type: type 2 Diabetes mellitus [facility] insulin use: without terminal operations manager use Diabetes mellitus complication status: with kidney complications Diabetes mellitus complication detail: with chronic kidney disease Chronic kidney disease stage: stage 3 (moderate) Qualified Code(s): E11.22 - Type 2 diabetes mellitus with diabetic chronic kidney disease; N18.3 - Chronic kidney disease, stage 3 (moderate) (4) Diastolic CHF Current Visit: No Status: Chronic Assessment and plan: Stable, no acute exacerbation Echo on 05/02 showed 50-55% EF. BNP at 265 Continue home regimen of spironolactone and furosemide Qualifiers: Heart failure chronicity: chronic Qualified Code(s): I50.32 - Chronic diastolic (congestive) heart failure (5) COPD (chronic obstructive pulmonary disease) Current Visit: Yes Status: Chronic Assessment and plan: Secondary to secondhand smoke exposure Not an acute exacerbation continue symbicort Qualifiers: COPD type: COPD with acute exacerbation Qualified Code(s): J44.1 - Chronic obstructive pulmonary disease with (acute) exacerbation (6) AIMEE (obstructive sleep apnea) Current Visit: No Status: Chronic Assessment and plan: Secondary to morbid obesity Sleep study done on 07/15/16 shows obstructive sleep apnea Continue home Bipap - Time Spent With Patient Total time spent is greater than 50% in coordination of care (as documented) at patient's floor/unit and/or counseling patient: - Subjective Interval history: Ms. Cox is a 62 year old female with a PMHx of COPD, AIMEE, AFib w RVR, and CHF presenting to [facility] on 05/01 for shortness of breath Patients shortness of breath started while she was at home on the couch talking to her home health nurse, she became short of breath with conversation and called PCP and came to hospital. Patients shortness of breath is aggravated by ADL's and ambulating in home with walker, does not leave home often. Relief with use of at home breathing treatments at these times, uses breathing treatment on average once daily. This is the first time she has presented to the hospital for shortness of breath , her last hospital visit was 2 months (November and December) at [facility] for a COPD exacerbation, patient felt confused and felt that CO2 was elevated at that time. Today she says that she feels well and is comfortable on nasal cannula. No new complaints today. - Constitutional Vitals: Temp Pulse Resp BP Pulse Ox 97.2 F L 90 18 113/66 96 05/02/18 07:04 05/02/18 07:04 05/02/18 07:25 05/02/18 07:04 05/02/18 07:25 General appearance: Present: mild distress, A&O X 3, morbidly obese. Absent: obese - Head Head exam: Present: atraumatic - Eye Eye exam: Present: PERRL. Absent: sclera anicteric - Neck Neck exam general surgery: Present: full ROM - Respiratory Respiratory exam: Present: decreased breath sounds, respiratory distress, wheezes - Expanded Respiratory Exam Location: decreased breath sounds: Lower (bilateral lower lobes) - Cardiovascular Cardiovascular exam: Present: irregular rhythm. Absent: JVD - Expanded Cardiovascular Exam Peripheral pulses: 3+/4+: Dorsalis Pedis (L) PM, Dorsalis Pedis (R) PM - Skin Skin exam: Present: dry, intact Internal Medicine: Result - Labs CBC & Chem 7: 05/02/18 01:10 05/02/18 01:10 Labs: Short CBC 05/02/18 Range/Units 01:10 WBC 10.5 (4.3-11.1) K/mcL Hgb 9.7 L (11.5-15.4) g/dL Hct 31.2 L (35.3-44.9) % Plt Count 137 L (140-400) K/mcL Neutrophils # 9.8 H (1.6-8.9) K/mcL BMP 05/02/18 01:10 Sodium 136 Potassium 4.0 Chloride 98 Carbon Dioxide 29 BUN 19 Creatinine 1.19 Glucose 382 H Calcium 8.8 - ABG Interpretation ABG results: PT/INR, D-dimer PT 12.6 Seconds (9.4-12.1) H 05/01/18 18:29 - EKG Interpretation Rate: normal (abnormal rhythm still present) - Prior EKG Data Prior EKG available for review: yes When compared to previous EKG: there are significant changes (A fib with RVR upon presentation, rate has resolved but still in afib) Consult Discharge Plan - Plan Referrals: Aayush Chase MD [Primary Care Provider] - Prescriptions: Rivaroxaban [Xarelto] 15 mg PO BID #42 tablet
--- NOTE | 2018-05-02 11:50 | Event Note ---
Date of Encounter: 05/02/18 Time of Encounter: 11:47 Patient was seen and examined. I agree with the progress note as written by the resident physician. Patient was admitted yesterday with multiple comorbidities and found to be in A. fib with RVR. She was put on a Cardizem drip and switched to oral Cardizem. Heart rate is still in the 100-120s range. The patient has been started on heparin drip as well. was short of breath when she came and received IV steroids. Chest x-ray was unremarkable. The patient is on chronic O2 4 L via nasal cannula. Glucose is uncontrolled into the high 300s GEN: NAD CVS: RRR. S1, S2, No m/r/g RESP: CTAB ABD: Soft, NT, ND, +BS EXT: No edema. 2+ DP. No rashes NEURO: Nonfocal Would monitor her heart rate today after switching to oral Cardizem Check pricing for Xarelto We will give the patient 20 units of Levemir for steroid-induced hyperglycemia A1c is 10.6 Check magnesium level Follow-up on echo results Continue nebs Continue rest of home meds Possible DC tomorrow
[2018-05-02] MEDS ORDERED: Heparin 25,000 UNIT/500 ML D5W 25,000 UNIT/500 ML BAG IVC SCH (14:16)
[2018-05-02] MEDS ORDERED: *HR* Rivaroxaban 10 MG TABLET PO SCH (17:00)
[2018-05-02] MEDS ORDERED: Insulin DETEMIR 100 UNIT/ML X5UNITS SQ SCH (21:00)
[2018-05-02] MEDS ORDERED: Insulin LISPRO 300 UNITS/3 ML VIAL SQ SCH (21:00)
[2018-05-02] MEDS: Latanoprost 2.5 ML BOTTLE BOTH EYES SCH ×2 (21:45→22:09)
[2018-05-03] MEDS: Ipratropium/Albuterol Neb 3 ML IH SCH ×3 (03:48→11:26)
--- NOTE | 2018-05-03 07:33 | Internal Med Progress Note ---
Date of Encounter: 05/03/18 Time of Encounter: 08:30 - Assessment and plan (1) Acute hypoxemic respiratory failure Current Visit: Yes Status: Resolved (2) Atrial fibrillation with RVR Current Visit: Yes Status: Resolved (3) Diabetes Current Visit: Yes Status: Chronic Qualifiers: Diabetes mellitus type: type 2 Diabetes mellitus jail insulin use: without jail use Diabetes mellitus complication status: with kidney complications Diabetes mellitus complication detail: with chronic kidney disease Chronic kidney disease stage: stage 3 (moderate) Qualified Code(s): E11.22 - Type 2 diabetes mellitus with diabetic chronic kidney disease; N18.3 - Chronic kidney disease, stage 3 (moderate) (4) Diastolic CHF Current Visit: No Status: Chronic Qualifiers: Heart failure chronicity: chronic Qualified Code(s): I50.32 - Chronic diastolic (congestive) heart failure (5) COPD (chronic obstructive pulmonary disease) Current Visit: Yes Status: Chronic Qualifiers: COPD type: COPD with acute exacerbation Qualified Code(s): J44.1 - Chronic obstructive pulmonary disease with (acute) exacerbation (6) AIMEE (obstructive sleep apnea) Current Visit: No Status: Chronic - Time Spent With Patient Total time spent is greater than 50% in coordination of care (as documented) at patient's floor/unit and/or counseling patient: - Subjective Interval history: Ms. Cox is a 62 year old female with a PMHx of COPD, AIMEE, CHF and RLD presenting to [facility] on 05/01 for shortness of breath. Today patient is - Constitutional Vitals: Temp Pulse Resp BP Pulse Ox 97.3 F L 86 21 141/73 99 05/03/18 07:09 05/03/18 07:09 05/03/18 07:24 05/03/18 07:09 05/03/18 07:24 General appearance: Present: mild distress, A&O X 3, morbidly obese - Head Head exam: Present: atraumatic, normocephalic - Eye Eye exam: Present: PERRL, conjuntiva pink, sclera anicteric - Neck Neck exam general surgery: Present: full ROM. Absent: lymphadenopathy - Respiratory Respiratory exam: Present: decreased breath sounds (in bilateral lower lobes), wheezes - Expanded Respiratory Exam Location: decreased breath sounds: Lower - Cardiovascular Cardiovascular exam: Present: irregular rhythm. Absent: JVD - Expanded Cardiovascular Exam Peripheral pulses: 3+/4+: Dorsalis Pedis (L) PM, Dorsalis Pedis (R) PM - GI/Abdominal GI/Abdominal exam: Present: normal bowel sounds, soft, no peritoneal signs. Absent: distended, tenderness - Skin Skin exam: Present: dry, intact Internal Medicine: Result - Labs CBC & Chem 7: 05/02/18 01:10 05/02/18 01:10 - ABG Interpretation ABG results: PT/INR, D-dimer PT 12.6 Seconds (9.4-12.1) H 05/01/18 18:29 - Impressions Impressions Echocardiogram 05/02/18 20:11 Impressions: Atrial fibrillation with elevated heart rates. LVEF 50-55%. Indeterminate diastolic function. RV size appears normal on this study. Function is low normal by Doppler. Severely dilated left atrium. Mild tricuspid regurgitation. Mild pulmonary hypertension. There is a small circumferential pericardial effusion present that appears moderate along the inferior border of the RV. There is no echocardiographic evidence of tamponade. Left Ventricular Wall Motion: Rest Echo Findings All wall segments showed normal motion. Findings: Study Quality * Technically adequate exam. ECG Findings * Atrial fibrillation with elevated heart rates. Left Ventricle * LVEF 50-55%. * Indeterminate diastolic function. * Normal LV chamber size and wall thickness. Right Ventricle * RV size appears normal on this study. Function is low normal by Doppler. Left Atrium * Severely dilated left atrium. Right Atrium * Mildly dilated right atrium. Aortic Valve * No aortic regurgitation. * Trileaflet aortic valve. * No aortic stenosis. * Mildly thickened aortic valve leaflets. Mitral Valve * Normal mitral valve structure. * No mitral stenosis. * No mitral regurgitation. Tricuspid Valve * Tricuspid valve not well visualized. * Mild tricuspid regurgitation. * Estimated RA pressure is 8 mmHg. * Mild pulmonary hypertension. * Estimated RVSP is 43 mmHg. Pulmonic Valve * Pulmonic valve is not well visualized. * No pulmonic stenosis. * No pulmonic regurgitation. Pulmonary Artery * Pulmonary artery not well visualized. Aorta * Normally sized aortic root. Pericardium * There is a small circumferential pericardial effusion present that appears moderate along the inferior border of the RV. * There is no echocardiographic evidence of tamponade. Interatrial Septum * No evidence of PFO by color Doppler. IVC * The IVC is dilated. * > 50% respiratory change Consult Discharge Plan - Plan Referrals: Aayush Chase MD [Primary Care Provider] - Prescriptions: Rivaroxaban [Xarelto] 15 mg PO BID #42 tablet
[2018-05-03] MEDS: *HR* Glimepiride 4 MG TABLET PO SCH (09:15)
[2018-05-03] MEDS: Spironolactone 25 MG TABLET PO SCH (09:15)
[2018-05-03] MEDS: Furosemide 40 MG TABLET PO SCH (09:15)
[2018-05-03] MEDS: Isosorbide MONOnitrate (24 HR) 30 MG TAB.ER.24H PO SCH (09:15)
[2018-05-03] MEDS: Iron Polysaccharide Complex 150 MG CAPSULE PO SCH (09:15)
[2018-05-03] MEDS: Insulin LISPRO 300 UNITS/3 ML VIAL SQ SCH ×2 (09:20→12:19)
--- NOTE | 2018-05-03 09:40 | Discharge Summary ---
<Rc Hansen - Last Filed: 05/03/18 10:00> Date of Encounter: 05/03/18 Time of Encounter: 09:00 - Discharge Diagnosis (1) Acute hypoxemic respiratory failure Status: Resolved (2) Atrial fibrillation with RVR Status: Resolved (3) Diabetes Status: Chronic Qualifiers: Diabetes mellitus type: type 2 Diabetes mellitus jail insulin use: without jail use Diabetes mellitus complication status: with kidney complications Diabetes mellitus complication detail: with chronic kidney disease Chronic kidney disease stage: stage 3 (moderate) Qualified Code(s): E11.22 - Type 2 diabetes mellitus with diabetic chronic kidney disease; N18.3 - Chronic kidney disease, stage 3 (moderate) (4) Diastolic CHF Status: Chronic Qualifiers: Heart failure chronicity: chronic Qualified Code(s): I50.32 - Chronic diastolic (congestive) heart failure (5) COPD (chronic obstructive pulmonary disease) Status: Chronic Qualifiers: COPD type: COPD with acute exacerbation Qualified Code(s): J44.1 - Chronic obstructive pulmonary disease with (acute) exacerbation (6) AIMEE (obstructive sleep apnea) Status: Chronic Hospital course: Ms. Cox is a 62 year old female with a PMH of COPD, CHF, Restrictive lung disease, and AIMEE who presented to [facility] on 05/01 for SOB. On 05/01 patient was at home speaking with home health aid when she became short of breath with conversation and called PCP who recommended she go to the hospital. Patient states that at home she is short of breath with ADL's and typically uses breathing treatments an average of once daily for relief. At the hospital, an ECG was done and patient was found to be in Afib with RVR. Patient was started on Diltiazem drip 5mg/hr and heparin, RVR resolved and she is rate controlled now on PO Diltiazem. Patient was found to have fluid level in lungs and received IV lasix to treat fluid overload, patient responded well and is stable on 4L nasal cannula. She has received DuoNebs prn, and has been on oxygen during hospital stay. Patient had glucose reading of 400 and A1c of 10.6 so was started on inpatient basal insulin, sugars have trended down to 355 with insulin. Patient was switched to PO Diltiazem 30 mg Q6H and given an Rx for Xarelto prior to discharge ([id number] > 2). Recommend continued outpatient anticoagulation with Xarelto, PO Diltiazem for continued rate control, basal and prandial insulin dosing to control sugar, and continue home regimen for COPD and CHF. - Time Spent with Patient Total time spent providing and/or coordinating discharge services: - Discharge Medications Prescriptions: Atorvastatin [Lipitor] 20 mg PO HS #30 tablet Diltiazem CD (24hr) [Cardizem CD] 120 mg PO DAILY #30 cap.er.24h Insulin DETEMIR [Levemir Flextouch] 40 unit SQ HS #12 insuln.pen Pen Needle, Diabetic [Pen Needle] 1 each MC DAILY #30 dis.needle Rivaroxaban [Xarelto] 15 mg PO BID #42 tablet Rivaroxaban [Xarelto] 20 mg PO 1700 #30 tablet Home Medications: Latanoprost [Xalatan] 1 drop BOTH EYES HS 04/06/16 [History] SitaGLIPtin [Januvia] 100 mg PO DAILY 04/06/16 [History] Albuterol Sulfate [Albuterol Inhaler] 2 puff IH Q4H PRN 04/14/17 [History] Citalopram Hydrobromide [Citalopram HBr] 40 mg PO HS 04/14/17 [History] Docusate [Colace] 100 mg PO DAILY 04/14/17 [History] Gabapentin [Neurontin] 600 mg PO HS 04/14/17 [History] Valsartan [Diovan] 80 mg PO DAILY 04/14/17 [History] Spironolactone [Aldactone] 25 mg PO DAILY 07/24/17 [History] Brimonidine 0.2% [Alphagan] 1 drop BOTH EYES AD 12/19/17 [History] Propylene Glycol/Peg 400 [Systane Ultra 0.4-0.3% Eye Drp] 1 drop OP QID [History] Ipratropium/Albuterol Neb [Duoneb] 3 ml IH [id number] PRN inhsol 01/18/18 [Rx] Iron Polysaccharide Complex [Ferrex 150] 150 mg PO DAILY capsule 01/18/18 [Rx] Omeprazole [PriLOSEC] 40 mg PO DAILY@0630 capsule.dr 01/18/18 [Rx] Ascorbic Acid [Vitamin C] 500 mg PO 0630 #30 tablet 01/25/18 [Rx] Isosorbide MONOnitrate (24 HR) [Imdur] 30 mg PO DAILY #30 tab.er.24h 01/25/18 [ Rx] Esomeprazole Magnesium [Nexium] 40 mg PO DAILY 03/29/18 [History] Furosemide [Lasix] 40 mg PO BID 03/29/18 [History] Ibandronate Sodium [Boniva] 150 mg PO QMONTH 03/29/18 [History] Rivaroxaban [Xarelto] 15 mg PO BID #42 tablet 05/02/18 [Rx] Atorvastatin [Lipitor] 20 mg PO HS #30 tablet 05/03/18 [Rx] Diltiazem CD (24hr) [Cardizem CD] 120 mg PO DAILY #30 cap.er.24h 05/03/18 [Rx] Insulin DETEMIR [Levemir Flextouch] 40 unit SQ HS #12 insuln.pen 05/03/18 [Rx] Pen Needle, Diabetic [Pen Needle] 1 each MC DAILY #30 dis.needle 05/03/18 [Rx] Rivaroxaban [Xarelto] 20 mg PO 1700 #30 tablet 05/03/18 [Rx] Allergies/Adverse Reactions: 3 Allergy/AdvReac Type Severity Reaction Status Date / Time hydrocodone [From Vicodin] AdvReac Nausea Verified 12/19/17 12:48 Hydromorphone [From Dilaudid] AdvReac Nausea Verified 12/19/17 12:48 Date of admission: 05/01/18 21:02 Primary care physician: Aayush Chase MD - Constitutional Vitals: Temp Pulse Resp BP Pulse Ox 97.3 F L 86 21 141/73 99 05/03/18 07:09 05/03/18 07:09 05/03/18 07:24 05/03/18 07:09 05/03/18 07:24 General appearance: Present: mild distress, A&O X 3, morbidly obese. Absent: obese - Patient Status Disposition: Home Health Service Condition: Good - Discharge Instructions Instructions: Diltiazem (By mouth), Atorvastatin (By mouth), Insulin Detemir ( Injection), Rivaroxaban (By mouth), Heart Failure (DC), Atrial Fibrillation (DC) , Acute Respiratory Distress Syndrome (DC), Urinary Tract Infection in Women (DC ), Diabetes Mellitus Type 2 in Adults (DC), Chronic Obstructive Pulmonary Disease (DC), Chronic Hypertension (DC), Anemia (GEN), Pneumonia (DC) Follow Up With: Aayush Chase MD [Primary Care Provider] - 05/08/18 4:00 pm <Marcello Quick - Last Filed: 05/03/18 10:08> - NOTES TO OUTPATIENT PROVIDER Notes to Outpatient Provider: Patient admitted for new afib rvr. d/c on cardizem and xaralto. Also has uncontrolled DM with A1c of 10.6. d/c on Levemir 40 units Qhs. Date of Encounter: 05/03/18 - Discharge Diagnosis (1) Diabetes Priority: Secondary Status: Chronic Qualifiers: Diabetes mellitus type: type 2 Diabetes mellitus jail insulin use: without termite renewal inspector use Diabetes mellitus complication status: with kidney complications Diabetes mellitus complication detail: with chronic kidney disease Chronic kidney disease stage: stage 3 (moderate) Qualified Code(s): E11.22 - Type 2 diabetes mellitus with diabetic chronic kidney disease; N18.3 - Chronic kidney disease, stage 3 (moderate) (2) Morbid obesity Priority: Secondary Status: Chronic (3) Diastolic CHF Priority: Secondary Status: Chronic Qualifiers: Heart failure chronicity: chronic Qualified Code(s): I50.32 - Chronic diastolic (congestive) heart failure (4) Acute exacerbation of chronic obstructive pulmonary disease (COPD) Priority: Secondary Status: Ruled-out (5) DVT prophylaxis Priority: Secondary Status: Acute (6) Atrial fibrillation with RVR Priority: Primary Status: Resolved Hospital course: Ms. Cox is a 62 year old female - Time Spent with Patient Total time spent providing and/or coordinating discharge services: Date of admission: 05/01/18 21:02 Primary care physician: Aayush Chase MD Discharging clinician: Marcello Quick Anticipated date of discharge: 05/03/18 - Constitutional Vitals: Temp Pulse Resp BP Pulse Ox 97.3 F L 86 21 141/73 99 05/03/18 07:09 05/03/18 07:09 05/03/18 07:24 05/03/18 07:09 05/03/18 07:24 - Head Head exam: Present: atraumatic, normocephalic - Eye Eye exam: Present: PERRL, conjuntiva pink, sclera anicteric - Neck Neck exam general surgery: Present: supple, trachea midline. Absent: lymphadenopathy - Respiratory Respiratory exam: Present: CTAB. Absent: accessory muscle use, rales, rhonchi, wheezes - Cardiovascular Cardiovascular exam: Present: irregular rhythm. Absent: diastolic murmur, gallop, rubs, systolic murmur - GI/Abdominal GI/Abdominal exam: Present: normal bowel sounds, soft, no peritoneal signs. Absent: distended, tenderness - Extremities Exam Extremities exam: Present: warm, radial pulses palpable and symmetrical. Absent : calf tenderness, cyanotic, pedal edema - Neurological Exam Neurological exam: Present: alert, oriented X3, no focal deficits. Absent: pronater drift, facial droop, speech deficit - Skin Skin exam: Present: dry, intact - Patient Status Functional capacity at discharge: independent ambulation Overall status at discharge: patient is progressing back to baseline - Diet and Activity Activity: wear oxygen at all times Diet: diabetic diet, low fat, low cholesterol, low salt diet <Jerome Woo - Last Filed: 05/03/18 16:31> Date of Encounter: 05/03/18 - Discharge Diagnosis (1) Diabetes Status: Chronic Qualifiers: Diabetes mellitus type: type 2 Diabetes mellitus termite renewal inspector insulin use: without termite renewal inspector use Diabetes mellitus complication status: with kidney complications Diabetes mellitus complication detail: with chronic kidney disease Chronic kidney disease stage: stage 3 (moderate) Qualified Code(s): E11.22 - Type 2 diabetes mellitus with diabetic chronic kidney disease; N18.3 - Chronic kidney disease, stage 3 (moderate) (2) Morbid obesity Status: Chronic (3) Diastolic CHF Status: Chronic Qualifiers: Heart failure chronicity: chronic Qualified Code(s): I50.32 - Chronic diastolic (congestive) heart failure (4) Acute exacerbation of chronic obstructive pulmonary disease (COPD) Status: Ruled-out (5) DVT prophylaxis Status: Acute (6) Atrial fibrillation with RVR Status: Resolved Hospital course: Ms. Cox is a 62 year old female - Time Spent with Patient Total time spent providing and/or coordinating discharge services: Date of admission: 05/01/18 21:02 Primary care physician: Aayush Chase MD - Constitutional Vitals: Temp Pulse Resp BP Pulse Ox 97.5 F L 77 16 104/50 99 05/03/18 11:25 05/03/18 11:25 05/03/18 11:26 05/03/18 11:25 05/03/18 11:26 - Attending Attestation Patient was seen and examined. I agree with the discharge summary as dictated above by the resident physician. Discharge plans and recommendations were made under my direct supervision.
[2018-05-03] MEDS ORDERED: Insulin DETEMIR 100 UNIT/ML X5UNITS SQ ONE (10:07)
--- NOTE | 2018-05-03 10:21 | Physician Discharge Referral ---
Home Health/Hosp Referral Info Transfer to: Home Health Attending Provider: Dr. Woo Provider in Charge Post Discharge: PCP - Diagnosis (1) Atrial fibrillation with RVR Priority: Primary Status: Resolved (2) Diabetes Priority: Secondary Status: Chronic (3) Morbid obesity Priority: Secondary Status: Chronic (4) Diastolic CHF Priority: Secondary Status: Chronic (5) Acute exacerbation of chronic obstructive pulmonary disease (COPD) Priority: Secondary Status: Ruled-out (6) DVT prophylaxis Priority: Secondary Status: Acute - Respiratory Orders Oxygen / L per min (2L) Smoking Cessation: Smoking cessation has been advised. For more information, call the [place] Tobacco Quit Line at 3-846-ENXZ-NOW. - Diet/Nutrition Diet/Nutrition Orders: Cardiac, No Concentrated Sweets - Activity Activity Orders: Up ad jeimy, Ambulate - Services Needed Following services are medically necessary services: Nursing, Home Health Aide - Transfer Medications Prescriptions: Atorvastatin [Lipitor] 20 mg PO HS #30 tablet Diltiazem CD (24hr) [Cardizem CD] 120 mg PO DAILY #30 cap.er.24h Insulin DETEMIR [Levemir Flextouch] 40 unit SQ HS #12 insuln.pen Pen Needle, Diabetic [Pen Needle] 1 each MC DAILY #30 dis.needle Rivaroxaban [Xarelto] 15 mg PO BID #42 tablet Rivaroxaban [Xarelto] 20 mg PO 1700 #30 tablet Home Medications: Latanoprost [Xalatan] 1 drop BOTH EYES HS 04/06/16 [History] SitaGLIPtin [Januvia] 100 mg PO DAILY 04/06/16 [History] Albuterol Sulfate [Albuterol Inhaler] 2 puff IH Q4H PRN 04/14/17 [History] Citalopram Hydrobromide [Citalopram HBr] 40 mg PO HS 04/14/17 [History] Docusate [Colace] 100 mg PO DAILY 04/14/17 [History] Gabapentin [Neurontin] 600 mg PO HS 04/14/17 [History] Valsartan [Diovan] 80 mg PO DAILY 04/14/17 [History] Spironolactone [Aldactone] 25 mg PO DAILY 07/24/17 [History] Brimonidine 0.2% [Alphagan] 1 drop BOTH EYES AD 12/19/17 [History] Propylene Glycol/Peg 400 [Systane Ultra 0.4-0.3% Eye Drp] 1 drop OP QID [History] Ipratropium/Albuterol Neb [Duoneb] 3 ml IH [id number] PRN inhsol 01/18/18 [Rx] Iron Polysaccharide Complex [Ferrex 150] 150 mg PO DAILY capsule 01/18/18 [Rx] Omeprazole [PriLOSEC] 40 mg PO DAILY@0630 capsule.dr 01/18/18 [Rx] Ascorbic Acid [Vitamin C] 500 mg PO 0630 #30 tablet 01/25/18 [Rx] Isosorbide MONOnitrate (24 HR) [Imdur] 30 mg PO DAILY #30 tab.er.24h 01/25/18 [ Rx] Esomeprazole Magnesium [Nexium] 40 mg PO DAILY 03/29/18 [History] Furosemide [Lasix] 40 mg PO BID 03/29/18 [History] Ibandronate Sodium [Boniva] 150 mg PO QMONTH 03/29/18 [History] Rivaroxaban [Xarelto] 15 mg PO BID #42 tablet 05/02/18 [Rx] Atorvastatin [Lipitor] 20 mg PO HS #30 tablet 05/03/18 [Rx] Diltiazem CD (24hr) [Cardizem CD] 120 mg PO DAILY #30 cap.er.24h 05/03/18 [Rx] Insulin DETEMIR [Levemir Flextouch] 40 unit SQ HS #12 insuln.pen 05/03/18 [Rx] Pen Needle, Diabetic [Pen Needle] 1 each MC DAILY #30 dis.needle 05/03/18 [Rx] Rivaroxaban [Xarelto] 20 mg PO 1700 #30 tablet 05/03/18 [Rx] Allergies/Adverse Reactions: 3 Allergy/AdvReac Type Severity Reaction Status Date / Time hydrocodone [From Vicodin] AdvReac Nausea Verified 12/19/17 12:48 Hydromorphone [From Dilaudid] AdvReac Nausea Verified 12/19/17 12:48 Certification: Further, I certify that my clinical findings support that this patient is homebound (i.e. absences from home require considerable and taxing effort and are for medical reasons or mosque services or infrequently or short duration when for other reasons) because: Homebound Reason: Patient requires assistance of a person or device to safely leave home, Absences from home are contraindicated except to recieve medical care Attestation: My signature below is to certify that this patient is under my care and that I, or nurse practitioner, or a physician's general assistant working with me, has a face-to -face encounter with this patient.
[2018-05-03] MEDS: Budesonide/Formoterol 160/4.5 MDI IH SCH (11:26)
[2018-05-03 11:33] VITALS: BP 104/50
[2018-05-03] MEDS ORDERED: Insulin DETEMIR 100 UNIT/ML X5UNITS SQ SCH (21:00)
== END 2018-05-03 13:48 | disposition home health service (06) | DRG 308 ==
LOC: 2NENU 15:12 → EMEROO 15:12 → 2NENU 21:30
PROVIDERS: ADMIT Student in an Organized Health Care Education/Training Program; ATTEND Student in an Organized Health Care Education/Training Program

== ENCOUNTER 2018-05-13 09:28 | Inpatient (IN) ==
--- NOTE | 2018-05-13 09:37 | Emergency Department Note ---
Disposition Clinical Impression: MARIFER (acute kidney injury), Hypercarbia Fluid overload Qualifiers: Hypervolemia type: unspecified Qualified Code(s): E87.70 - Fluid overload, unspecified Disposition: Admitted As Inpatient Condition: Fair Referrals: Aayush Chase MD [Primary Care Provider] - Forms: ED Satisfaction Letter Time of Disposition: 13:44 General Adult HPI - General Chief complaint: ED Altered Mental Status Stated complaint: UTI Time Seen by Provider: 05/13/18 09:33 Source: patient, EMS Mode of arrival: EMS Limitations: altered mental status Nursing Notes Reviewed: Yes Vital Signs Reviewed: Yes - History of Present Illness HPI Narrative: 62-year-old female presenting to the emergency Department chief complaint altered mental status. Patient has significant past medical history of end- stage COPD, renal failure and atrial fibrillation currently on xarelto. According to EMS patient's son called because they were concerned for her mental state. Son was concerned that her carbon dioxide could be high because this is how she acts when this happens. Also concern for UTI due to patient stating dysuria and frequency to EMS. On exam patient is alert and oriented 3 but difficult to arouse. We will respond appropriately to questions. Denies any pain at this time. Denies any recent nausea, vomiting or abdominal pain. Denies any chest pain or increase in her baseline shortness of breath. Patient is on 4 L nasal cannula at home. Patient does disclose some frequency but denies dysuria to me in the room. Patient had to be woken up multiple times during the exam to finish questioning. EMS does disclose multiple falls over the past week. Patient denies hitting her head or passing out. - Related Data Home Medications Medication Instructions Recorded Confirmed Latanoprost [Xalatan] 1 drop BOTH EYES HS 04/06/16 05/13/18 SitaGLIPtin [Januvia] 100 mg PO DAILY 04/06/16 05/13/18 Albuterol Sulfate [Albuterol 2 puff IH Q4H PRN 04/14/17 05/13/18 Inhaler] Citalopram Hydrobromide 40 mg PO HS 04/14/17 05/13/18 [Citalopram HBr] Docusate [Colace] 100 mg PO DAILY 04/14/17 05/13/18 Gabapentin [Neurontin] 600 mg PO HS 04/14/17 05/13/18 Valsartan [Diovan] 80 mg PO DAILY 04/14/17 05/13/18 Spironolactone [Aldactone] 25 mg PO DAILY 07/24/17 05/13/18 Brimonidine 0.2% [Alphagan] 1 drop BOTH EYES AD 12/19/17 05/13/18 Propylene Glycol/Peg 400 [Systane 1 drop OP QID 12/19/17 05/13/18 Ultra 0.4-0.3% Eye Drp] Esomeprazole Magnesium [Nexium] 40 mg PO DAILY 03/29/18 05/13/18 Furosemide [Lasix] 40 mg PO BID 03/29/18 05/13/18 Ibandronate Sodium [Boniva] 150 mg PO QMONTH 03/29/18 05/13/18 Previous Rx's Medication Instructions Recorded Ipratropium/Albuterol Neb [Duoneb] 3 ml IH [id number] PRN inhsol 01/18/18 Iron Polysaccharide Complex 150 mg PO DAILY capsule 01/18/18 [Ferrex 150] Omeprazole [PriLOSEC] 40 mg PO DAILY@0630 capsule.dr 01/18/18 Ascorbic Acid [Vitamin C] 500 mg PO 0630 #30 tablet 01/25/18 Isosorbide MONOnitrate (24 HR) 30 mg PO DAILY #30 tab.er.24h 01/25/18 [Imdur] Atorvastatin [Lipitor] 20 mg PO HS #30 tablet 05/03/18 Diltiazem CD (24hr) [Cardizem CD] 120 mg PO DAILY #30 cap.er.24h 05/03/18 Insulin DETEMIR [Levemir Flextouch] 40 unit SQ HS #12 insuln.pen 05/03/18 Rivaroxaban [Xarelto] 20 mg PO 1700 #30 tablet 05/03/18 Allergies Allergy/AdvReac Type Severity Reaction Status Date / Time hydrocodone [From Vicodin] AdvReac Nausea Verified 05/13/18 10:46 Hydromorphone [From Dilaudid] AdvReac Nausea Verified 05/13/18 10:46 All systems ED: reviewed and negative except as stated. Constitutional: Reports: fever (subjective) Eyes: Reports: as per HPI ENT ED: Reports: as per HPI Cardiovascular: Denies: chest pain, palpitations Respiratory: Denies: dyspnea, hemoptysis, stridor Gastrointestinal: Denies: abdominal pain, nausea, vomiting Genitourinary: Reports: dysuria, frequency Musculoskeletal: Reports: as per HPI Integumentary: Reports: other (ecchymosis) Neurological: Reports: confusion Psychiatric: Reports: as per HPI Endocrine: Reports: as per HPI Hematological/Lymphatic: Reports: as per HPI Allergic/Immunologic: Reports: as per HPI Past Medical History - Past Medical History Attestation: Yes The following information was validated with the patient. Medical history: Reports: CHF, COPD, diabetes, fibromyalgia, hyperlipidemia, hypertension Surgical history: Reports: no surgical history Psychiatric history: Reports: anxiety, depression - Social History Smoking Status: Never smoker Smokeless Tobacco Status: No Alcohol use: Reports: none Drug use: Reports: none Physical Exam - General Limitations: altered mental status General appearance: in no apparent distress - Head Head exam: atraumatic, normocephalic, normal inspection - Eye Eye exam: Present: normal appearance, EOMI. Absent: scleral icterus, conjunctival injection - ENT ENT exam: mucous membranes dry - Neck Neck exam: Present: normal inspection, full ROM. Absent: tenderness, meningismus - Chest Chest inspection: Present: normal inspection, symmetric chest wall rise. Absent : tenderness, rash - Respiratory Respiratory exam: Present: other (decreased breath sounds bilaterally) - Cardiovascular Cardiovascular exam: Present: regular rate, normal rhythm, normal heart sounds - Abdominal Exam Abdominal exam: Present: soft, Non-Tender. Absent: distention, guarding, rebound - Extremities Exam Extremities exam: Present: other (ecchymosis noted on the right lower extremity) - Neurological Exam Neurological exam: Present: alert, oriented X3 - Skin Skin exam: Present: warm, dry Course Course Narrative: 62-year-old female presenting to the emergency Department for chief complaint altered mental status. Patient difficult to arouse during examination. Exam shows ecchymosis on the right lower extremity but no other abnormalities. We will perform basic laboratory analysis including blood culture, chest x-ray, CT of the head and neck due to patient's recent falls. Also perform an ABG due to history of hypercapnia. Patient is alert and oriented 3 and room with stable vital signs. Patient agrees with this plan. Disposition most likely admission but pending results. - Reevaluation(s) Reevaluation #1: Patient's laboratory analysis shows acute kidney injury. Elevated BNP, chronic anemia, elevated alkaline phosphatase. Initial ABG showed acidemia with hypercarbia. Patient was placed on BiPAP of 16/8 at 35% FiO2. Repeat blood gas completed 30 minutes later and patient pH 7.29 and CO2 down to 90. Patient mentating more appropriately at this time. CT of the head and neck within normal limits. CT of the abdomen and pelvis showed anasarca, small to moderate pericardial effusion and bilateral pleural effusions. I spoke with the camp tender on-call Dr. Siu about possibility of placing the patient on dialysis. He states to try Lasix first. The patient is anuric her unresponsive to Lasix dialysis will be considered. Patient is alert and oriented 3 in the room. Stable vital signs. Patient remained on BiPAP comfortably. We will provide her with a 40 mg dose of IV Lasix along with 0.4 mg nitroglycerin dose sublingually. Reevaluation #2: Spoke with the hospice on-call Dr. Olson who agrees to accept the patient at this time. Patient is alert and oriented 3 and room stable vital signs. Patient agrees with this plan. Son at bedside. Time: 13:43 Vital Signs Temperature 98.5 F 05/13/18 09:30 Pulse Rate 87 05/13/18 09:30 Respiratory Rate 20 05/13/18 09:30 Blood Pressure 111/74 05/13/18 09:30 O2 Sat by Pulse Oximetry 100 05/13/18 09:30 Temperature 98.5 F 05/13/18 09:30 Pulse Rate 87 05/13/18 09:30 Respiratory Rate 21 05/13/18 10:55 Blood Pressure 111/74 05/13/18 09:30 O2 Sat by Pulse Oximetry 99 05/13/18 10:55 Oxygen Delivery Oxygen Delivery Nasal Cannula Medical Decision Making - Lab Data Result diagrams: 05/13/18 09:40 05/13/18 09:40 Lab Results 05/13/18 05/13/18 05/13/18 Range/Units 09:40 09:40 09:40 WBC 13.6 H (4.3-11.1) K/mcL RBC 2.91 L (3.82-4.97) M/mcL Hgb 8.5 L (11.5-15.4) g/dL Hct 29.3 L (35.3-44.9) % MCV 100.7 H (83.0-100.0) fL MCH 29.2 (28.0-33.3) pg MCHC 29.0 L (31.6-35.5) g/dL RDW 13.8 (11.5-14.5) % Plt Count 170 (140-400) K/mcL MPV 12.0 (9.4-12.4) fL Immature Gran % 0.9 (0-4) % Seg Neutrophils % 76.7 % Lymphocytes % 10.7 % Monocytes % 11.6 % Eosinophils % 0.0 % Basophils % 0.1 % Neutrophils # 10.4 H (1.6-8.9) K/mcL Lymphocytes # 1.5 (0.6-4.6) K/mcL Monocytes # 1.6 H (0.0-1.3) K/mcL Eosinophils # 0.0 (0.0-0.6) K/mcL Basophils # 0.0 (0.0-0.2) K/mcL PT 27.2 H (9.4-12.1) Seconds INR 2.4 APTT 50.7 H (26.0-36.0) Seconds Sample Site ABG pH (7.32-7.45) pH Units ABG pCO2 (35-45) mmHg ABG pO2 (85-104) mmHg ABG HCO3 (21-27) mEq/L ABG Total CO2 (20-26) mEq/L ABG O2 Saturation (95-98) % ABG Base Excess (-2 to 3) mEq/L Bran Test O2 Delivery Device Inspired O2 (1-15=lpm [id number]=%) Sodium 139 (136-145) mEq/L Potassium 4.9 (3.5-5.1) mEq/L Chloride 94 L (98-107) mEq/L Carbon Dioxide 36 H (23-29) mEq/L BUN 54 H (8-23) mg/dL Creatinine 3.19 H (0.60-1.20) mg/dL Est GFR ( Amer) 18 L (> 60) Est GFR (Non-Af Amer) 15 L (> 60) BUN/Creatinine Ratio 17 (6-26) Glucose 61 L (70-105) mg/dL Calculated Osmolality 301 H (280-300) Lactic Acid (0.5-2.2) mmol/L Calcium 9.3 (8.6-10.3) mg/dL Phosphorus (2.7-4.5) mg/dL Magnesium (1.6-2.6) mg/dL Total Bilirubin 0.5 (0.3-1.0) mg/dL Direct Bilirubin 0.2 (0.0-0.2) mg/dL Indirect Bilirubin 0.3 (0.0-1.2) mg/dL AST 18 (13-39) Units/L ALT 15 (7-52) Units/L Alkaline Phosphatase 259 H (34-104) Units/L Troponin I < 0.03 (< 0.04) ng/mL B-Natriuretic Peptide (Less than 100) pg/mL Serum Total Protein 6.7 (6.4-8.9) g/dL Albumin 3.5 (3.5-5.7) g/dL Globulin 3.2 (2.4-3.5) g/dL Albumin/Globulin Ratio 1.1 (1.1-2.2) Lipase (11-82) Units/L Urine Color (Yellow) Urine Clarity (Clear) Urine pH (5.0-8.0) pH Units Ur Specific [place] (1.010-1.025) Urine Protein (Neg-Trace) mg/dL Urine Glucose (UA) (Normal) mg/dL Urine Ketones (Negative) mg/dL Urine Blood (Negative) Urine Nitrite (Negative) Urine Bilirubin (Negative) Urine Urobilinogen (Normal) mg/dL Ur Leukocyte Esterase (Negative) Urine Microscopic RBC (0-3) per hpf Urine Microscopic WBC (0-3) per hpf Ur Squamous Epith Cells (None-Few) per lpf Calcium Oxalate Crystal Amorphous Sediment (Few) Urine Bacteria (None-Few) per hpf Ur Culture Indicated? (NO) 05/13/18 05/13/18 05/13/18 Range/Units 09:40 10:41 10:50 WBC (4.3-11.1) K/mcL RBC (3.82-4.97) M/mcL Hgb (11.5-15.4) g/dL Hct (35.3-44.9) % MCV (83.0-100.0) fL MCH (28.0-33.3) pg MCHC (31.6-35.5) g/dL RDW (11.5-14.5) % Plt Count (140-400) K/mcL MPV (9.4-12.4) fL Immature Gran % (0-4) % Seg Neutrophils % % Lymphocytes % % Monocytes % % Eosinophils % % Basophils % % Neutrophils # (1.6-8.9) K/mcL Lymphocytes # (0.6-4.6) K/mcL Monocytes # (0.0-1.3) K/mcL Eosinophils # (0.0-0.6) K/mcL Basophils # (0.0-0.2) K/mcL PT (9.4-12.1) Seconds INR APTT (26.0-36.0) Seconds Sample Site R Radial ABG pH 7.18 L* (7.32-7.45) pH Units ABG pCO2 116 H* (35-45) mmHg ABG pO2 102 (85-104) mmHg ABG HCO3 43 H (21-27) mEq/L ABG Total CO2 47 H (20-26) mEq/L ABG O2 Saturation 95 (95-98) % ABG Base Excess 12 H (-2 to 3) mEq/L Bran Test Positive O2 Delivery Device Cannula Inspired O2 36.0 (1-15=lpm [id number]=%) Sodium (136-145) mEq/L Potassium (3.5-5.1) mEq/L Chloride (98-107) mEq/L Carbon Dioxide (23-29) mEq/L BUN (8-23) mg/dL Creatinine (0.60-1.20) mg/dL Est GFR ( Amer) (> 60) Est GFR (Non-Af Amer) (> 60) BUN/Creatinine Ratio (6-26) Glucose (70-105) mg/dL Calculated Osmolality (280-300) Lactic Acid (0.5-2.2) mmol/L Calcium (8.6-10.3) mg/dL Phosphorus 6.0 H (2.7-4.5) mg/dL Magnesium 2.3 (1.6-2.6) mg/dL Total Bilirubin (0.3-1.0) mg/dL Direct Bilirubin (0.0-0.2) mg/dL Indirect Bilirubin (0.0-1.2) mg/dL AST (13-39) Units/L ALT (7-52) Units/L Alkaline Phosphatase (34-104) Units/L Troponin I (< 0.04) ng/mL B-Natriuretic Peptide (Less than 100) pg/mL Serum Total Protein (6.4-8.9) g/dL Albumin (3.5-5.7) g/dL Globulin (2.4-3.5) g/dL Albumin/Globulin Ratio (1.1-2.2) Lipase (11-82) Units/L Urine Color Dark Yellow (Yellow) Urine Clarity Turbid A (Clear) Urine pH 5.0 (5.0-8.0) pH Units Ur Specific [place] > 1.030 H (1.010-1.025) Urine Protein Negative (Neg-Trace) mg/dL Urine Glucose (UA) Normal (Normal) mg/dL Urine Ketones Trace H (Negative) mg/dL Urine Blood Negative (Negative) Urine Nitrite Negative (Negative) Urine Bilirubin Small H (Negative) Urine Urobilinogen Normal (Normal) mg/dL Ur Leukocyte Esterase Negative (Negative) Urine Microscopic RBC 3-5 H (0-3) per hpf Urine Microscopic WBC 3-5 H (0-3) per hpf Ur Squamous Epith Cells Few (None-Few) per lpf Calcium Oxalate Crystal Present Amorphous Sediment Moderate H (Few) Urine Bacteria Few (None-Few) per hpf Ur Culture Indicated? NO (NO) 05/13/18 05/13/18 05/13/18 Range/Units 11:04 11:04 11:04 WBC (4.3-11.1) K/mcL RBC (3.82-4.97) M/mcL Hgb (11.5-15.4) g/dL Hct (35.3-44.9) % MCV (83.0-100.0) fL MCH (28.0-33.3) pg MCHC (31.6-35.5) g/dL RDW (11.5-14.5) % Plt Count (140-400) K/mcL MPV (9.4-12.4) fL Immature Gran % (0-4) % Seg Neutrophils % % Lymphocytes % % Monocytes % % Eosinophils % % Basophils % % Neutrophils # (1.6-8.9) K/mcL Lymphocytes # (0.6-4.6) K/mcL Monocytes # (0.0-1.3) K/mcL Eosinophils # (0.0-0.6) K/mcL Basophils # (0.0-0.2) K/mcL PT (9.4-12.1) Seconds INR APTT (26.0-36.0) Seconds Sample Site ABG pH (7.32-7.45) pH Units ABG pCO2 (35-45) mmHg ABG pO2 (85-104) mmHg ABG HCO3 (21-27) mEq/L ABG Total CO2 (20-26) mEq/L ABG O2 Saturation (95-98) % ABG Base Excess (-2 to 3) mEq/L Bran Test O2 Delivery Device Inspired O2 (1-15=lpm [id number]=%) Sodium (136-145) mEq/L Potassium (3.5-5.1) mEq/L Chloride (98-107) mEq/L Carbon Dioxide (23-29) mEq/L BUN (8-23) mg/dL Creatinine (0.60-1.20) mg/dL Est GFR ( Amer) (> 60) Est GFR (Non-Af Amer) (> 60) BUN/Creatinine Ratio (6-26) Glucose (70-105) mg/dL Calculated Osmolality (280-300) Lactic Acid 0.2 L (0.5-2.2) mmol/L Calcium (8.6-10.3) mg/dL Phosphorus (2.7-4.5) mg/dL Magnesium (1.6-2.6) mg/dL Total Bilirubin (0.3-1.0) mg/dL Direct Bilirubin (0.0-0.2) mg/dL Indirect Bilirubin (0.0-1.2) mg/dL AST (13-39) Units/L ALT (7-52) Units/L Alkaline Phosphatase (34-104) Units/L Troponin I (< 0.04) ng/mL B-Natriuretic Peptide 275 H (Less than 100) pg/mL Serum Total Protein (6.4-8.9) g/dL Albumin (3.5-5.7) g/dL Globulin (2.4-3.5) g/dL Albumin/Globulin Ratio (1.1-2.2) Lipase 30 (11-82) Units/L Urine Color (Yellow) Urine Clarity (Clear) Urine pH (5.0-8.0) pH Units Ur Specific [place] (1.010-1.025) Urine Protein (Neg-Trace) mg/dL Urine Glucose (UA) (Normal) mg/dL Urine Ketones (Negative) mg/dL Urine Blood (Negative) Urine Nitrite (Negative) Urine Bilirubin (Negative) Urine Urobilinogen (Normal) mg/dL Ur Leukocyte Esterase (Negative) Urine Microscopic RBC (0-3) per hpf Urine Microscopic WBC (0-3) per hpf Ur Squamous Epith Cells (None-Few) per lpf Calcium Oxalate Crystal Amorphous Sediment (Few) Urine Bacteria (None-Few) per hpf Ur Culture Indicated? (NO) 05/13/18 Range/Units 11:27 WBC (4.3-11.1) K/mcL RBC (3.82-4.97) M/mcL Hgb (11.5-15.4) g/dL Hct (35.3-44.9) % MCV (83.0-100.0) fL MCH (28.0-33.3) pg MCHC (31.6-35.5) g/dL RDW (11.5-14.5) % Plt Count (140-400) K/mcL MPV (9.4-12.4) fL Immature Gran % (0-4) % Seg Neutrophils % % Lymphocytes % % Monocytes % % Eosinophils % % Basophils % % Neutrophils # (1.6-8.9) K/mcL Lymphocytes # (0.6-4.6) K/mcL Monocytes # (0.0-1.3) K/mcL Eosinophils # (0.0-0.6) K/mcL Basophils # (0.0-0.2) K/mcL PT (9.4-12.1) Seconds INR APTT (26.0-36.0) Seconds Sample Site R Radial ABG pH 7.29 L (7.32-7.45) pH Units ABG pCO2 90 H* D (35-45) mmHg ABG pO2 56 L D (85-104) mmHg ABG HCO3 44 H (21-27) mEq/L ABG Total CO2 47 H (20-26) mEq/L ABG O2 Saturation 83 L (95-98) % ABG Base Excess 15 H (-2 to 3) mEq/L Bran Test Positive O2 Delivery Device BiPAP Inspired O2 35.0 (1-15=lpm [id number]=%) Sodium (136-145) mEq/L Potassium (3.5-5.1) mEq/L Chloride (98-107) mEq/L Carbon Dioxide (23-29) mEq/L BUN (8-23) mg/dL Creatinine (0.60-1.20) mg/dL Est GFR ( Amer) (> 60) Est GFR (Non-Af Amer) (> 60) BUN/Creatinine Ratio (6-26) Glucose (70-105) mg/dL Calculated Osmolality (280-300) Lactic Acid (0.5-2.2) mmol/L Calcium (8.6-10.3) mg/dL Phosphorus (2.7-4.5) mg/dL Magnesium (1.6-2.6) mg/dL Total Bilirubin (0.3-1.0) mg/dL Direct Bilirubin (0.0-0.2) mg/dL Indirect Bilirubin (0.0-1.2) mg/dL AST (13-39) Units/L ALT (7-52) Units/L Alkaline Phosphatase (34-104) Units/L Troponin I (< 0.04) ng/mL B-Natriuretic Peptide (Less than 100) pg/mL Serum Total Protein (6.4-8.9) g/dL Albumin (3.5-5.7) g/dL Globulin (2.4-3.5) g/dL Albumin/Globulin Ratio (1.1-2.2) Lipase (11-82) Units/L Urine Color (Yellow) Urine Clarity (Clear) Urine pH (5.0-8.0) pH Units Ur Specific [place] (1.010-1.025) Urine Protein (Neg-Trace) mg/dL Urine Glucose (UA) (Normal) mg/dL Urine Ketones (Negative) mg/dL Urine Blood (Negative) Urine Nitrite (Negative) Urine Bilirubin (Negative) Urine Urobilinogen (Normal) mg/dL Ur Leukocyte Esterase (Negative) Urine Microscopic RBC (0-3) per hpf Urine Microscopic WBC (0-3) per hpf Ur Squamous Epith Cells (None-Few) per lpf Calcium Oxalate Crystal Amorphous Sediment (Few) Urine Bacteria (None-Few) per hpf Ur Culture Indicated? (NO) - EKG Data EKG #1 EKG attestation: Yes I reviewed and interpreted this EKG. EKG results narrative: Sinus rhythm. Incomplete right bundle branch block. 87 bpm. LA interval 156, QRS 102, QTC 349. No signs of acute ST segment elevation or ischemia. Compared to previous EKG completed on 05/01/2018, previous atrial fibrillation. Otherwise no acute changes.
[2018-05-13 10:07] LABS: Basophils % 0.1 %; Hematocrit 29.3 % (35.3-44.9); Hemoglobin 8.5 g/dL (11.5-15.4); Immature Granulocytes % 0.9 % (0-4); Lymphocytes # 1.5 K/mcL (0.6-4.6); Lymphocytes % 10.7 %; Mean Corpuscular Hemoglobin 29.2 pg (28.0-33.3); Mean Corpuscular Volume 100.7 fL (83.0-100.0); Monocytes # 1.6 K/mcL (0.0-1.3); Monocytes % 11.6 %; Neutrophils # 10.4 K/mcL (1.6-8.9); Platelet Count 170 K/mcL (140-400); Red Blood Count 2.91 M/mcL (3.82-4.97); Red Cell Distribution Width 13.8 % (11.5-14.5); Segmented Neutrophils % 76.7 %
[2018-05-13 10:13] LABS: INR 2.4; Prothrombin Time 27.2 Seconds (9.4-12.1)
[2018-05-13 10:16] LABS: Activated Partial Thrombo Time 50.7 Seconds (26.0-36.0)
[2018-05-13 10:24] LABS: Magnesium 2.3 mg/dL (1.6-2.6)
[2018-05-13 10:25] LABS: Troponin I < 0.03 ng/mL (< 0.04)
[2018-05-13 10:33] LABS: Alanine Aminotransferase 15 Units/L (7-52); Albumin 3.5 g/dL (3.5-5.7); Albumin/Globulin Ratio 1.1 (1.1-2.2); Alkaline Phosphatase 259 Units/L (34-104); Aspartate Amino Transferase 18 Units/L (13-39); BUN/Creatinine Ratio 17 (6-26); Bilirubin,Direct 0.2 mg/dL (0.0-0.2); Bilirubin,Indirect 0.3 mg/dL (0.0-1.2); Bilirubin,Total 0.5 mg/dL (0.3-1.0); Blood Urea Nitrogen 54 mg/dL (8-23); Calcium 9.3 mg/dL (8.6-10.3); Carbon Dioxide 36 mEq/L (23-29); Chloride 94 mEq/L (98-107); Globulin 3.2 g/dL (2.4-3.5); Glucose 61 mg/dL (70-105); Osmolality,Calculated 301 (280-300); Potassium 4.9 mEq/L (3.5-5.1); Sodium 139 mEq/L (136-145); Total Protein 6.7 g/dL (6.4-8.9); eGFR For Non-African Americans 15 (> 60)
[2018-05-13 10:45] LABS: ABG Base Excess 12 mEq/L (-2 to 3); ABG HCO3 43 mEq/L (21-27); ABG Oxygen Saturation 95 % (95-98); ABG PCO2 116 mmHg (35-45); ABG PH 7.18 pH Units (7.32-7.45); ABG PO2 102 mmHg (85-104); ABG TCO2 47 mEq/L (20-26)
[2018-05-13 10:58] LABS: Bilirubin,Urine Small (Negative); Blood,Urine Negative (Negative); Clarity,Urine Turbid (Clear); Color,Urine Dark Yellow (Yellow); Glucose,Urine (UA) Normal (Normal); Ketones,Urine Trace mg/dL (Negative); Leukocyte Esterase,Urine Negative (Negative); Nitrite,Urine Negative (Negative); Protein,Urine Negative (Neg-Trace); Specific Gravity,Urine > 1.030 (1.010-1.025); Urobilinogen,Urine Normal (Normal)
[2018-05-13 11:15] LABS: Squamous Epithelial Cell,Urine Few per lpf (None-Few)
[2018-05-13 11:16] LABS: Amorphous Sediment,Urine Moderate (Few); Bacteria,Urine Few per hpf (None-Few); Calcium Oxalate Crystals,Urine Present
[2018-05-13 11:33] LABS: ABG Base Excess 15 mEq/L (-2 to 3); ABG HCO3 44 mEq/L (21-27); ABG Oxygen Saturation 83 % (95-98); ABG PCO2 90 mmHg (35-45); ABG PH 7.29 pH Units (7.32-7.45); ABG PO2 56 mmHg (85-104); ABG TCO2 47 mEq/L (20-26)
--- NOTE | 2018-05-13 11:39 | Emergency Department Note ---
Disposition Clinical Impression: MARIFER (acute kidney injury), Hypercarbia Disposition: Admitted As Inpatient Condition: Fair Forms: ED Satisfaction Letter General Adult HPI - General Chief complaint: ED Altered Mental Status Stated complaint: UTI Time Seen by Provider: 05/13/18 09:33 Source: patient, EMS Mode of arrival: EMS Limitations: altered mental status - History of Present Illness Pain Scale: 0 - Related Data Home Medications Medication Instructions Recorded Confirmed Latanoprost [Xalatan] 1 drop BOTH EYES HS 04/06/16 05/13/18 SitaGLIPtin [Januvia] 100 mg PO DAILY 04/06/16 05/13/18 Albuterol Sulfate [Albuterol 2 puff IH Q4H PRN 04/14/17 05/13/18 Inhaler] Citalopram Hydrobromide 40 mg PO HS 04/14/17 05/13/18 [Citalopram HBr] Docusate [Colace] 100 mg PO DAILY 04/14/17 05/13/18 Gabapentin [Neurontin] 600 mg PO HS 04/14/17 05/13/18 Valsartan [Diovan] 80 mg PO DAILY 04/14/17 05/13/18 Spironolactone [Aldactone] 25 mg PO DAILY 07/24/17 05/13/18 Brimonidine 0.2% [Alphagan] 1 drop BOTH EYES AD 12/19/17 05/13/18 Propylene Glycol/Peg 400 [Systane 1 drop OP QID 12/19/17 05/13/18 Ultra 0.4-0.3% Eye Drp] Esomeprazole Magnesium [Nexium] 40 mg PO DAILY 03/29/18 05/13/18 Furosemide [Lasix] 40 mg PO BID 03/29/18 05/13/18 Ibandronate Sodium [Boniva] 150 mg PO QMONTH 03/29/18 05/13/18 Previous Rx's Medication Instructions Recorded Ipratropium/Albuterol Neb [Duoneb] 3 ml IH [id number] PRN inhsol 01/18/18 Iron Polysaccharide Complex 150 mg PO DAILY capsule 01/18/18 [Ferrex 150] Omeprazole [PriLOSEC] 40 mg PO DAILY@0630 capsule.dr 01/18/18 Ascorbic Acid [Vitamin C] 500 mg PO 0630 #30 tablet 01/25/18 Isosorbide MONOnitrate (24 HR) 30 mg PO DAILY #30 tab.er.24h 01/25/18 [Imdur] Atorvastatin [Lipitor] 20 mg PO HS #30 tablet 05/03/18 Diltiazem CD (24hr) [Cardizem CD] 120 mg PO DAILY #30 cap.er.24h 05/03/18 Insulin DETEMIR [Levemir Flextouch] 40 unit SQ HS #12 insuln.pen 05/03/18 Rivaroxaban [Xarelto] 20 mg PO 1700 #30 tablet 05/03/18 Allergies Allergy/AdvReac Type Severity Reaction Status Date / Time hydrocodone [From Vicodin] AdvReac Nausea Verified 05/13/18 10:46 Hydromorphone [From Dilaudid] AdvReac Nausea Verified 05/13/18 10:46 Constitutional: Reports: fever (subjective) Eyes: Reports: as per HPI ENT ED: Reports: as per HPI Cardiovascular: Denies: chest pain, palpitations Respiratory: Denies: dyspnea, hemoptysis, stridor Gastrointestinal: Denies: abdominal pain, nausea, vomiting Genitourinary: Reports: dysuria, frequency Musculoskeletal: Reports: as per HPI Integumentary: Reports: other (ecchymosis) Neurological: Reports: confusion Psychiatric: Reports: as per HPI Endocrine: Reports: as per HPI Hematological/Lymphatic: Reports: as per HPI Allergic/Immunologic: Reports: as per HPI Past Medical History - Past Medical History Medical history: Reports: CHF, COPD, diabetes, fibromyalgia, hyperlipidemia, hypertension Surgical history: Reports: no surgical history Psychiatric history: Reports: anxiety, depression - Social History Smoking Status: Never smoker Smokeless Tobacco Status: No Alcohol use: Reports: none Drug use: Reports: none Physical Exam - General Limitations: altered mental status General appearance: in no apparent distress Course Vital Signs Temperature 98.5 F 05/13/18 09:30 Pulse Rate 87 05/13/18 09:30 Respiratory Rate 20 05/13/18 09:30 Blood Pressure 111/74 05/13/18 09:30 O2 Sat by Pulse Oximetry 100 05/13/18 09:30 Temperature 98.5 F 05/13/18 09:30 Pulse Rate 87 05/13/18 09:30 Respiratory Rate 21 05/13/18 10:55 Blood Pressure 111/74 05/13/18 09:30 O2 Sat by Pulse Oximetry 99 05/13/18 10:55 Oxygen Delivery Oxygen Delivery Nasal Cannula Medical Decision Making - Lab Data Result diagrams: 05/13/18 09:40 05/13/18 09:40 Lab Results 05/13/18 05/13/18 05/13/18 Range/Units 09:40 09:40 09:40 WBC 13.6 H (4.3-11.1) K/mcL RBC 2.91 L (3.82-4.97) M/mcL Hgb 8.5 L (11.5-15.4) g/dL Hct 29.3 L (35.3-44.9) % MCV 100.7 H (83.0-100.0) fL MCH 29.2 (28.0-33.3) pg MCHC 29.0 L (31.6-35.5) g/dL RDW 13.8 (11.5-14.5) % Plt Count 170 (140-400) K/mcL MPV 12.0 (9.4-12.4) fL Immature Gran % 0.9 (0-4) % Seg Neutrophils % 76.7 % Lymphocytes % 10.7 % Monocytes % 11.6 % Eosinophils % 0.0 % Basophils % 0.1 % Neutrophils # 10.4 H (1.6-8.9) K/mcL Lymphocytes # 1.5 (0.6-4.6) K/mcL Monocytes # 1.6 H (0.0-1.3) K/mcL Eosinophils # 0.0 (0.0-0.6) K/mcL Basophils # 0.0 (0.0-0.2) K/mcL PT 27.2 H (9.4-12.1) Seconds INR 2.4 APTT 50.7 H (26.0-36.0) Seconds Sample Site ABG pH (7.32-7.45) pH Units ABG pCO2 (35-45) mmHg ABG pO2 (85-104) mmHg ABG HCO3 (21-27) mEq/L ABG Total CO2 (20-26) mEq/L ABG O2 Saturation (95-98) % ABG Base Excess (-2 to 3) mEq/L Bran Test O2 Delivery Device Inspired O2 (1-15=lpm [id number]=%) Sodium 139 (136-145) mEq/L Potassium 4.9 (3.5-5.1) mEq/L Chloride 94 L (98-107) mEq/L Carbon Dioxide 36 H (23-29) mEq/L BUN 54 H (8-23) mg/dL Creatinine 3.19 H (0.60-1.20) mg/dL Est GFR ( Amer) 18 L (> 60) Est GFR (Non-Af Amer) 15 L (> 60) BUN/Creatinine Ratio 17 (6-26) Glucose 61 L (70-105) mg/dL Calculated Osmolality 301 H (280-300) Lactic Acid (0.5-2.2) mmol/L Calcium 9.3 (8.6-10.3) mg/dL Phosphorus (2.7-4.5) mg/dL Magnesium (1.6-2.6) mg/dL Total Bilirubin 0.5 (0.3-1.0) mg/dL Direct Bilirubin 0.2 (0.0-0.2) mg/dL Indirect Bilirubin 0.3 (0.0-1.2) mg/dL AST 18 (13-39) Units/L ALT 15 (7-52) Units/L Alkaline Phosphatase 259 H (34-104) Units/L Troponin I < 0.03 (< 0.04) ng/mL Serum Total Protein 6.7 (6.4-8.9) g/dL Albumin 3.5 (3.5-5.7) g/dL Globulin 3.2 (2.4-3.5) g/dL Albumin/Globulin Ratio 1.1 (1.1-2.2) Urine Color (Yellow) Urine Clarity (Clear) Urine pH (5.0-8.0) pH Units Ur Specific [place] (1.010-1.025) Urine Protein (Neg-Trace) mg/dL Urine Glucose (UA) (Normal) mg/dL Urine Ketones (Negative) mg/dL Urine Blood (Negative) Urine Nitrite (Negative) Urine Bilirubin (Negative) Urine Urobilinogen (Normal) mg/dL Ur Leukocyte Esterase (Negative) Urine Microscopic RBC (0-3) per hpf Urine Microscopic WBC (0-3) per hpf Ur Squamous Epith Cells (None-Few) per lpf Calcium Oxalate Crystal Amorphous Sediment (Few) Urine Bacteria (None-Few) per hpf Ur Culture Indicated? (NO) 05/13/18 05/13/18 05/13/18 Range/Units 09:40 10:41 10:50 WBC (4.3-11.1) K/mcL RBC (3.82-4.97) M/mcL Hgb (11.5-15.4) g/dL Hct (35.3-44.9) % MCV (83.0-100.0) fL MCH (28.0-33.3) pg MCHC (31.6-35.5) g/dL RDW (11.5-14.5) % Plt Count (140-400) K/mcL MPV (9.4-12.4) fL Immature Gran % (0-4) % Seg Neutrophils % % Lymphocytes % % Monocytes % % Eosinophils % % Basophils % % Neutrophils # (1.6-8.9) K/mcL Lymphocytes # (0.6-4.6) K/mcL Monocytes # (0.0-1.3) K/mcL Eosinophils # (0.0-0.6) K/mcL Basophils # (0.0-0.2) K/mcL PT (9.4-12.1) Seconds INR APTT (26.0-36.0) Seconds Sample Site R Radial ABG pH 7.18 L* (7.32-7.45) pH Units ABG pCO2 116 H* (35-45) mmHg ABG pO2 102 (85-104) mmHg ABG HCO3 43 H (21-27) mEq/L ABG Total CO2 47 H (20-26) mEq/L ABG O2 Saturation 95 (95-98) % ABG Base Excess 12 H (-2 to 3) mEq/L Bran Test Positive O2 Delivery Device Cannula Inspired O2 36.0 (1-15=lpm [id number]=%) Sodium (136-145) mEq/L Potassium (3.5-5.1) mEq/L Chloride (98-107) mEq/L Carbon Dioxide (23-29) mEq/L BUN (8-23) mg/dL Creatinine (0.60-1.20) mg/dL Est GFR ( Amer) (> 60) Est GFR (Non-Af Amer) (> 60) BUN/Creatinine Ratio (6-26) Glucose (70-105) mg/dL Calculated Osmolality (280-300) Lactic Acid (0.5-2.2) mmol/L Calcium (8.6-10.3) mg/dL Phosphorus 6.0 H (2.7-4.5) mg/dL Magnesium 2.3 (1.6-2.6) mg/dL Total Bilirubin (0.3-1.0) mg/dL Direct Bilirubin (0.0-0.2) mg/dL Indirect Bilirubin (0.0-1.2) mg/dL AST (13-39) Units/L ALT (7-52) Units/L Alkaline Phosphatase (34-104) Units/L Troponin I (< 0.04) ng/mL Serum Total Protein (6.4-8.9) g/dL Albumin (3.5-5.7) g/dL Globulin (2.4-3.5) g/dL Albumin/Globulin Ratio (1.1-2.2) Urine Color Dark Yellow (Yellow) Urine Clarity Turbid A (Clear) Urine pH 5.0 (5.0-8.0) pH Units Ur Specific [place] > 1.030 H (1.010-1.025) Urine Protein Negative (Neg-Trace) mg/dL Urine Glucose (UA) Normal (Normal) mg/dL Urine Ketones Trace H (Negative) mg/dL Urine Blood Negative (Negative) Urine Nitrite Negative (Negative) Urine Bilirubin Small H (Negative) Urine Urobilinogen Normal (Normal) mg/dL Ur Leukocyte Esterase Negative (Negative) Urine Microscopic RBC 3-5 H (0-3) per hpf Urine Microscopic WBC 3-5 H (0-3) per hpf Ur Squamous Epith Cells Few (None-Few) per lpf Calcium Oxalate Crystal Present Amorphous Sediment Moderate H (Few) Urine Bacteria Few (None-Few) per hpf Ur Culture Indicated? NO (NO) 05/13/18 05/13/18 Range/Units 11:04 11:27 WBC (4.3-11.1) K/mcL RBC (3.82-4.97) M/mcL Hgb (11.5-15.4) g/dL Hct (35.3-44.9) % MCV (83.0-100.0) fL MCH (28.0-33.3) pg MCHC (31.6-35.5) g/dL RDW (11.5-14.5) % Plt Count (140-400) K/mcL MPV (9.4-12.4) fL Immature Gran % (0-4) % Seg Neutrophils % % Lymphocytes % % Monocytes % % Eosinophils % % Basophils % % Neutrophils # (1.6-8.9) K/mcL Lymphocytes # (0.6-4.6) K/mcL Monocytes # (0.0-1.3) K/mcL Eosinophils # (0.0-0.6) K/mcL Basophils # (0.0-0.2) K/mcL PT (9.4-12.1) Seconds INR APTT (26.0-36.0) Seconds Sample Site R Radial ABG pH 7.29 L (7.32-7.45) pH Units ABG pCO2 90 H* D (35-45) mmHg ABG pO2 56 L D (85-104) mmHg ABG HCO3 44 H (21-27) mEq/L ABG Total CO2 47 H (20-26) mEq/L ABG O2 Saturation 83 L (95-98) % ABG Base Excess 15 H (-2 to 3) mEq/L Bran Test Positive O2 Delivery Device BiPAP Inspired O2 35.0 (1-15=lpm [id number]=%) Sodium (136-145) mEq/L Potassium (3.5-5.1) mEq/L Chloride (98-107) mEq/L Carbon Dioxide (23-29) mEq/L BUN (8-23) mg/dL Creatinine (0.60-1.20) mg/dL Est GFR ( Amer) (> 60) Est GFR (Non-Af Amer) (> 60) BUN/Creatinine Ratio (6-26) Glucose (70-105) mg/dL Calculated Osmolality (280-300) Lactic Acid 0.2 L (0.5-2.2) mmol/L Calcium (8.6-10.3) mg/dL Phosphorus (2.7-4.5) mg/dL Magnesium (1.6-2.6) mg/dL Total Bilirubin (0.3-1.0) mg/dL Direct Bilirubin (0.0-0.2) mg/dL Indirect Bilirubin (0.0-1.2) mg/dL AST (13-39) Units/L ALT (7-52) Units/L Alkaline Phosphatase (34-104) Units/L Troponin I (< 0.04) ng/mL Serum Total Protein (6.4-8.9) g/dL Albumin (3.5-5.7) g/dL Globulin (2.4-3.5) g/dL Albumin/Globulin Ratio (1.1-2.2) Urine Color (Yellow) Urine Clarity (Clear) Urine pH (5.0-8.0) pH Units Ur Specific [place] (1.010-1.025) Urine Protein (Neg-Trace) mg/dL Urine Glucose (UA) (Normal) mg/dL Urine Ketones (Negative) mg/dL Urine Blood (Negative) Urine Nitrite (Negative) Urine Bilirubin (Negative) Urine Urobilinogen (Normal) mg/dL Ur Leukocyte Esterase (Negative) Urine Microscopic RBC (0-3) per hpf Urine Microscopic WBC (0-3) per hpf Ur Squamous Epith Cells (None-Few) per lpf Calcium Oxalate Crystal Amorphous Sediment (Few) Urine Bacteria (None-Few) per hpf Ur Culture Indicated? (NO) Attestation Statement - Attestation Attestation: I examined this patient and my medical decision-making was reviewed with the Resident Physician. I agree with the documented findings, disposition and treatment plan as described except to the extent set forth below. 62 year old female presntse to the ED with complaints of UTI And AMS and typically waer bipap at night and family at bedside is concerned that she may be retaining CO2. PAtinet is altered at bedside although she is not hypoxic or tachycardiac. Patient was reatining at 116 [address]her on bipap and she has MARIFER wihtout evidence of UTI. WE fransico continue with AMS workup with CT of her ABP and Head/neck and then admit to medicine
[2018-05-13] MEDS ORDERED: 0.9 % Sodium Chloride 500 ML IVC ONE (11:45)
[2018-05-13] MEDS ORDERED: Furosemide 40 MG/4 ML VIAL IVP ONE (13:26)
[2018-05-13] MEDS ORDERED: Nitroglycerin 0.4 MG TAB.SUBL SL ONE (13:27)
[2018-05-13] MEDS ORDERED: Naloxone 0.4 MG/ML INJ IVP PRN (16:03)
[2018-05-13] MEDS ORDERED: D5% in Water 1,000 ML IVC PRN (17:00)
[2018-05-13] MEDS ORDERED: *HR* Dextrose 50 % in Water (Syg) 50 ML SYRINGE IVP PRN (17:00)
[2018-05-13] MEDS ORDERED: Dextrose Gel 15 GM/37.5 ML TUBE PO PRN (17:00)
[2018-05-13] MEDS ORDERED: methylPREDNISolone 125 MG/2 ML VIAL IVP ONE (17:06)
[2018-05-13] MEDS: *HR* Rivaroxaban 15 MG TABLET PO SCH (17:20)
[2018-05-13] MEDS: 0.9 % Sodium Chloride 1,000 ML IVC SCH (17:21)
[2018-05-13] MEDS: Insulin LISPRO 300 UNITS/3 ML VIAL SQ SCH ×2 (17:22→21:19)
[2018-05-13] MEDS: EYE OP SCH ×2 (17:23→21:20)
[2018-05-13] MEDS: SYSTANE ULTRA OP SCH ×2 (17:23→21:20)
[2018-05-13] MEDS: Dextrose Gel 15 GM/37.5 ML TUBE PO PRN (17:25)
--- NOTE | 2018-05-13 17:44 | Nephrology Consult Note ---
Date of Encounter: 05/13/18 Time of Encounter: 17:41 Assessment and Plan (1) MARIFER (acute kidney injury) Current Visit: Yes Status: Acute Patient has acute kidney injury superimposed on chronic kidney disease. Etiology at this time is not completely clear. She has angiotensin receptor blockade medication as long with loop diuretics that could be contributed to her acute renal decline. The lady is a poor historian and cannot give me any details regarding her admission so it is possible that she is dehydrated as well. I agree with a fluid challenge and will continue to monitor her renal function. At the time my evaluation she does not need renal replacement therapy nor a biopsy Avoid nephrotoxic agents and adjust medication for renal function. Workup for acute kidney injury is ordered. (2) Acute exacerbation of chronic obstructive airways disease Current Visit: No Status: Acute Per the primary team. Patient experiencing acute respiratory failure. She is on BiPAP. He receiving steroids. She reports that she is feeling better. (3) Anemia Current Visit: No Status: Chronic Monitor for bleeding. Iron saturation, vitamin B12, and folate are ordered. Qualifiers: Anemia type: iron deficiency Iron deficiency anemia type: chronic blood loss Qualified Code(s): 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 (chronic) (4) Hypertension Current Visit: No Status: Chronic Titrated and tapped his medications as needed. Hold diuretics and hold her Diovan. Recommend changing her Diovan to losartan prior to discharge. Qualifiers: Hypertension type: essential hypertension Qualified Code(s): I10 - Essential (primary) hypertension History of Present Illness - Reason for Consult Consult date: 05/13/18 Acute Kidney Injury - Chief Complaint MARIFER - History of Present Illness Ms. Cox is a 62 yo woman with a history of COPD who presents secondary to shortness of breath. Upon admission she was found to have acute kidney injury superimposed on chronic kidney disease. [facility] was consulted to assist with evaluation and management. At time my evaluation the patient was on BiPAP, but states she feels better that she did upon admission. She denies chest pain. She states she has been eating and drinking normally. She denies nausea vomiting or diarrhea. 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 Psychiatric history: anxiety, depression - Past Surgical History Surgical History: no surgical history Additional surgical history: Knee scope - Social History Smoking Status: Never smoker Smokeless Tobacco Status: No Alcohol use: none Drug use: none - Family History Father Family Member Ethnicity: Non- Living Status: Hx Family Cardiac Disorders: Yes (AL, HTN) Brother Family Member Ethnicity: Non- Living Status: Still Living Hx Family GI Disorders: Yes Sister Family Member Ethnicity: Non- Living Status: Hx Family Cardiac Disorders: Yes Mother Adopted: No Family Member Ethnicity: Non- Living Status: Hx Family Cardiac Disorders: Yes Hx Family Respiratory Disorders: Yes (COPD) Hx Family Cancer: Yes (skin) Hx Family GI Disorders: No Hx Family Endocrine Disorder: Yes (DM) Hx Family Neuromuscular Disorders: No Hx Family Neurologic Disorders: Yes (CVA with rt sided weakness) Hx Family HEENT Disorders: Yes ([place]) Hx Family Autoimmune Disorders: No Medications and Allergies Latanoprost [Xalatan] 1 drop BOTH EYES HS 04/06/16 [History] SitaGLIPtin [Januvia] 100 mg PO DAILY 04/06/16 [History] Albuterol Sulfate [Albuterol Inhaler] 2 puff IH Q4H PRN 04/14/17 [History] Citalopram Hydrobromide [Citalopram HBr] 40 mg PO HS 04/14/17 [History] Docusate [Colace] 100 mg PO DAILY 04/14/17 [History] Gabapentin [Neurontin] 600 mg PO HS 04/14/17 [History] Valsartan [Diovan] 80 mg PO DAILY 04/14/17 [History] Spironolactone [Aldactone] 25 mg PO DAILY 07/24/17 [History] Brimonidine 0.2% [Alphagan] 1 drop BOTH EYES AD 12/19/17 [History] Propylene Glycol/Peg 400 [Systane Ultra 0.4-0.3% Eye Drp] 1 drop OP QID [History] Ipratropium/Albuterol Neb [Duoneb] 3 ml IH [id number] PRN inhsol 01/18/18 [Rx] Iron Polysaccharide Complex [Ferrex 150] 150 mg PO DAILY capsule 01/18/18 [Rx] Omeprazole [PriLOSEC] 40 mg PO DAILY@0630 capsule.dr 01/18/18 [Rx] Ascorbic Acid [Vitamin C] 500 mg PO 0630 #30 tablet 01/25/18 [Rx] Isosorbide MONOnitrate (24 HR) [Imdur] 30 mg PO DAILY #30 tab.er.24h 01/25/18 [ Rx] Esomeprazole Magnesium [Nexium] 40 mg PO DAILY 03/29/18 [History] Furosemide [Lasix] 40 mg PO BID 03/29/18 [History] Ibandronate Sodium [Boniva] 150 mg PO QMONTH 03/29/18 [History] Atorvastatin [Lipitor] 20 mg PO HS #30 tablet 05/03/18 [Rx] Diltiazem CD (24hr) [Cardizem CD] 120 mg PO DAILY #30 cap.er.24h 05/03/18 [Rx] Insulin DETEMIR [Levemir Flextouch] 40 unit SQ HS #12 insuln.pen 05/03/18 [Rx] Rivaroxaban [Xarelto] 20 mg PO 1700 #30 tablet 05/03/18 [Rx] 3 Allergy/AdvReac Type Severity Reaction Status Date / Time hydrocodone [From Vicodin] AdvReac Nausea Verified 05/13/18 10:46 Hydromorphone [From Dilaudid] AdvReac Nausea Verified 05/13/18 10:46 Review of Systems All Systems: reviewed and no additional remarkable complaints except as stated ( As documented in history of present illness) Exam - Vital Signs Vital signs: Initial Vital Signs Temp Pulse Resp BP Pulse Ox 98.5 F 87 20 111/74 100 05/13/18 09:30 05/13/18 09:30 05/13/18 09:30 05/13/18 09:30 05/13/18 09:30 Vital Signs - Last 8 Hours Temp Pulse Resp BP Pulse Ox 05/13/18 15:36 25 84 05/13/18 15:25 97.6 F 86 20 135/96 90 Intake and Output 05/13/18 05/13/18 05/13/18 07:59 15:59 23:59 Other: Blood Glucose* 71 54 - General Appearance General appearance: well-developed, well-nourished EENT: ATNC Neck: supple Respiratory: wheezing, course breath sounds Additional Comments: BiPAP in place. Cardiology: no edema, regular rate Gastrointestinal: no tenderness Integumentary: warm and dry Neurologic: alert and oriented x3 Musculoskeletal: no cyanosis Psychiatric: mood/affect appropriate Results - Lab Results 05/13/18 09:40 05/13/18 09:40 Most recent lab results ABG pH 7.29 pH Units (7.32-7.45) L 05/13/18 11:27 ABG pCO2 90 mmHg (35-45) H* D 05/13/18 11:27 ABG pO2 56 mmHg (85-104) L D 05/13/18 11:27 ABG HCO3 44 mEq/L (21-27) H 05/13/18 11:27 ABG O2 Saturation 83 % (95-98) L 05/13/18 11:27 Calcium 9.3 mg/dL (8.6-10.3) 05/13/18 09:40 Phosphorus 6.0 mg/dL (2.7-4.5) H 05/13/18 09:40 Magnesium 2.3 mg/dL (1.6-2.6) 05/13/18 09:40 Consult Discharge Plan - Plan Referrals: Aayush Chase MD [Primary Care Provider] -
[2018-05-13] MEDS: Ipratropium/Albuterol Neb 3 ML IH SCH (19:59)
[2018-05-13] MEDS: Gabapentin 300 MG CAPSULE PO SCH (21:18)
[2018-05-13] MEDS: Insulin DETEMIR 100 UNIT/ML X5UNITS SQ SCH (21:18)
[2018-05-13] MEDS: Latanoprost 2.5 ML BOTTLE BOTH EYES SCH (21:19)
--- NOTE | 2018-05-13 22:17 | Internal Med History&Physical ---
Date of Encounter: 05/13/18 Time of Encounter: 21:00 Internal Medicine - H&P: HPI Chief complaint: ALTERED MENTAL STATUS Admitted From: Home Plans for Post Hospital Care: Home History of present illness: Ms. Cox is a 62 year old female. The patient has developed progressing weakness/confusion in the last 24 hours preceding this admission. She experienced a couple of falls in the place she lives. This patient has had underlying COPD; her parents were heavy smokers. 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 She uses supplemental oxygen 4 L/ min nasal cannula. We found her to have hypoxic and hypercapnic in the emergency department. She does have underlying chronic hypoxia/hypercapnia. We found her to have acute kidney injury with a creatinine of 3.19. Her creatinine from 05/02 was 1.19. The patient does have her chronic anemia. Her today's hemoglobin is 8.5. It was 9.7 on 05/02/2018. She has a vague history of her coronary artery disease. Her echocardiogram done in this year showed grossly normal systolic and diastolic function. The patient was put on a BiPAP in the emergency department. Her mental status improved quite a bit. She was talking to me a little bit after admitting her to the floor. Denies chest pain. Denies abdominal pain, nausea and vomiting. This patient was recently started on losartan. She has been on Lasix and spironolactone for quite some time. Review of systems: All 14 organ systems were reviewed by me with the patient. Positive and pertinent negative findings are listed above. The rest of organ systems is negative. Physical Exam: Skin: She has a little bit of cyanosis of her lips. Otherwise, her skin is normal in appearance. Eyes: Sclera is white. There is no discharge from eyes. ENMT: Oral/pharyngeal mucosa is normal in appearance. There is no discharge from nose or ears. Respiratory: Normal breath sounds with no crackles and wheezes bilaterally. They are not present at the base of her right lung. CV: Heart is regular with no gallop or murmur. GI: Abdomen is flat and soft with no palpable mass or visceromegaly. : There is no tenderness in patient's flanks bilaterally. Neuro exam: He has good strength in upper and lower extremities. He has normal eye movements. A/P: This patient likely suffers from exacerbation of her COPD. She has underlying right phrenic nerve palsy. Will offer her IV Solu-Medrol/by mouth prednisone. She will be taking nebulizer treatments with DuoNeb. We will give her IV Levaquin. She has developed acute on chronic hypoxic/hypercapnic respiratory failure. We will continue BiPAP treatments. We will continue supplemental oxygen. Acute kidney injury. It is likely triggered by losartan/diuretics in the setting of decreased intake of by mouth fluids. Will put those medications on hold. We will give her IV fluids. Nephrology is consulted. Atrial fibrillation/possible coronary artery disease. We will keep her on Xarelto. She will be taking Cardizem CD with Imdur and Lipitor. Anemia. Will repeat her hemoglobin tomorrow. I hope, she is not bleeding. 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 Psychiatric history: anxiety, depression - Past Surgical History Surgical History: no surgical history Additional surgical history: Knee scope - Social History Smoking Status: Never smoker Smokeless Tobacco Status: No Alcohol use: none Drug use: none - Family History Father Family Member Ethnicity: Non- Living Status: Hx Family Cardiac Disorders: Yes (AK, HTN) Brother Family Member Ethnicity: Non- Living Status: Still Living Hx Family GI Disorders: Yes Sister Family Member Ethnicity: Non- Living Status: Hx Family Cardiac Disorders: Yes Mother Adopted: No Family Member Ethnicity: Non- Living Status: Hx Family Cardiac Disorders: Yes Hx Family Respiratory Disorders: Yes (COPD) Hx Family Cancer: Yes (skin) Hx Family GI Disorders: No Hx Family Endocrine Disorder: Yes (DM) Hx Family Neuromuscular Disorders: No Hx Family Neurologic Disorders: Yes (CVA with rt sided weakness) Hx Family HEENT Disorders: Yes (RINCON) Hx Family Autoimmune Disorders: No Internal Medicine - H&P: Meds Latanoprost [Xalatan] 1 drop BOTH EYES HS 04/06/16 [History] SitaGLIPtin [Januvia] 100 mg PO DAILY 04/06/16 [History] Albuterol Sulfate [Albuterol Inhaler] 2 puff IH Q4H PRN 04/14/17 [History] Citalopram Hydrobromide [Citalopram HBr] 40 mg PO HS 04/14/17 [History] Docusate [Colace] 100 mg PO DAILY 04/14/17 [History] Gabapentin [Neurontin] 600 mg PO HS 04/14/17 [History] Valsartan [Diovan] 80 mg PO DAILY 04/14/17 [History] Spironolactone [Aldactone] 25 mg PO DAILY 07/24/17 [History] Brimonidine 0.2% [Alphagan] 1 drop BOTH EYES AD 12/19/17 [History] Propylene Glycol/Peg 400 [Systane Ultra 0.4-0.3% Eye Drp] 1 drop OP QID [History] Ipratropium/Albuterol Neb [Duoneb] 3 ml IH [id number] PRN inhsol 01/18/18 [Rx] Iron Polysaccharide Complex [Ferrex 150] 150 mg PO DAILY capsule 01/18/18 [Rx] Omeprazole [PriLOSEC] 40 mg PO DAILY@0630 capsule.dr 01/18/18 [Rx] Ascorbic Acid [Vitamin C] 500 mg PO 0630 #30 tablet 01/25/18 [Rx] Isosorbide MONOnitrate (24 HR) [Imdur] 30 mg PO DAILY #30 tab.er.24h 01/25/18 [ Rx] Esomeprazole Magnesium [Nexium] 40 mg PO DAILY 03/29/18 [History] Furosemide [Lasix] 40 mg PO BID 03/29/18 [History] Ibandronate Sodium [Boniva] 150 mg PO QMONTH 03/29/18 [History] Atorvastatin [Lipitor] 20 mg PO HS #30 tablet 05/03/18 [Rx] Diltiazem CD (24hr) [Cardizem CD] 120 mg PO DAILY #30 cap.er.24h 05/03/18 [Rx] Insulin DETEMIR [Levemir Flextouch] 40 unit SQ HS #12 insuln.pen 05/03/18 [Rx] Rivaroxaban [Xarelto] 20 mg PO 1700 #30 tablet 05/03/18 [Rx] 3 Allergy/AdvReac Type Severity Reaction Status Date / Time hydrocodone [From Vicodin] AdvReac Nausea Verified 05/13/18 10:46 Hydromorphone [From Dilaudid] AdvReac Nausea Verified 05/13/18 10:46 - Constitutional Vitals: Temp Pulse Resp BP Pulse Ox 97.7 F 86 18 134/67 95 05/13/18 18:48 05/13/18 18:48 05/13/18 21:49 05/13/18 18:48 05/13/18 21:49 General appearance: Present: A&O X 3, answers questions appropriately Internal Med - H&P Results - Labs CBC & Chem 7: 05/13/18 09:40 05/13/18 09:40 - Assessment and plan (1) COPD exacerbation Current Visit: Yes Status: Acute (2) Phrenic nerve palsy Current Visit: Yes Status: Chronic (3) Acute on chronic respiratory failure with hypoxia and hypercapnia Current Visit: No Status: Acute (4) MARIFER (acute kidney injury) Current Visit: Yes Status: Acute (5) Afib Current Visit: No Status: Chronic Qualifiers: Atrial fibrillation type: permanent Qualified Code(s): I48.2 - Chronic atrial fibrillation (6) Anemia Current Visit: Yes Status: Acute Qualifiers: Anemia type: unspecified type Qualified Code(s): D64.9 - Anemia, unspecified - Time Spent With Patient Total time spent is greater than 50% in coordination of care (as documented) at patient's floor/unit and/or counseling patient: Greater than 35 minutes
[2018-05-13] MEDS ORDERED: Levofloxacin 500 MG/100 ML 500 MG/100 ML BAG IVPB SCH (23:00)
[2018-05-14] MEDS: Ipratropium/Albuterol Neb 3 ML IH SCH ×7 (00:12→23:24)
[2018-05-14 05:29] LABS: Basophils % 0.1 %; Hematocrit 27.7 % (35.3-44.9); Hemoglobin 8.1 g/dL (11.5-15.4); Lymphocytes # 0.3 K/mcL (0.6-4.6); Mean Corpuscular HGB Conc 29.2 g/dL (31.6-35.5); Mean Corpuscular Hemoglobin 29.1 pg (28.0-33.3); Mean Corpuscular Volume 99.6 fL (83.0-100.0); Mean Platelet Volume 12.5 fL (9.4-12.4); Monocytes # 0.1 K/mcL (0.0-1.3); Monocytes % 1.3 %; Neutrophils # 10.6 K/mcL (1.6-8.9); Platelet Count 145 K/mcL (140-400); Red Blood Count 2.78 M/mcL (3.82-4.97); Red Cell Distribution Width 13.6 % (11.5-14.5); Segmented Neutrophils % 94.6 %
[2018-05-14 06:08] LABS: Ferritin 664 ng/mL (10-120)
[2018-05-14] MEDS: 0.9 % Sodium Chloride 1,000 ML IVC SCH (06:08)
[2018-05-14 06:13] LABS: Folate 18.7 ng/mL (3.0-16.0)
[2018-05-14 06:46] LABS: % Iron Saturation 14 % (15-50); Iron 25 mcg/dL (50-170); Transferrin 128 mg/dL (203-362)
[2018-05-14 06:47] LABS: Calcium 8.4 mg/dL (8.6-10.3); Magnesium 2.3 mg/dL (1.6-2.6); Potassium 5.3 mEq/L (3.5-5.1)
[2018-05-14] MEDS ORDERED: predniSONE 20 MG TABLET PO SCH (09:00)
[2018-05-14] MEDS: Isosorbide MONOnitrate (24 HR) 30 MG TAB.ER.24H PO SCH (09:13)
[2018-05-14] MEDS: SYSTANE ULTRA OP SCH ×2 (09:13→11:57)
[2018-05-14] MEDS: EYE OP SCH ×2 (09:13→11:57)
[2018-05-14] MEDS: Diltiazem CD (24hr) 120 MG CAPSULE PO SCH (09:13)
[2018-05-14] MEDS: *HR* SitaGLIPtin 25 MG TABLET PO SCH (09:13)
[2018-05-14] MEDS: Insulin LISPRO 300 UNITS/3 ML VIAL SQ SCH ×7 (09:14→21:16)
--- NOTE | 2018-05-14 13:00 | Internal Med Progress Note ---
Hospitalist Progress Note - Encounter Date of Encounter: 05/14/18 Time of Encounter: 12:58 - Subjective Interval History: Patient seen and examined in the room, overall, her respiratory symptoms have much improved. She denies fever, cough, chest pain, palpitation, or syncope. - Exam Vitals: Temp Pulse Resp BP Pulse Ox 97.7 F 78 24 113/79 94 05/14/18 11:06 05/14/18 11:06 05/14/18 11:11 05/14/18 06:29 05/14/18 11:11 Exam: PHYSICAL EXAMINATION: GENERAL APPEARANCE: The patient is alert, oriented and in no acute distress. HEENT: Head is normocephalic. The sinuses are nontender. Pupils are equal and reactive. The nares are patent. Oropharynx clear without lesions. NECK: Supple without lymphadenopathy. HEART: Regular rate and rhythm. LUNGS: Diffuse wheezing, and rhonchi bilaterally. ABDOMEN: Soft, nontender, nondistended with good bowel sounds heard. Inguinal area is normal. EXTREMITIES: Without cyanosis, clubbing or edema. NEUROLOGICAL: Gross nonfocal. SKIN: Warm and dry without any rash. - Assessment and Plan (1) Acute on chronic respiratory failure with hypoxia and hypercapnia Current Visit: Yes Status: Acute Assessment and Plan: 62-year-old female with past medical history of severe COPD, phrenic nerve palsy , diastolic congestive heart failure, atrial fibrillation, and a diabetes presented with generalized weakness/confusion/frequent falls. ABG at ED revealed worsening hypoxia and the hypercapnia. She also was found to have acute kidney injury. Patient recently was started on losartan, in addition she also takes Lasix and Aldactone for CHF. - Patient reported inconsistent use of BiPAP at home, she was placed back on BiPAP with improvement of mental status, and lab values. We will continue BiPAP. - CT revealed possible pneumonia, patient was started on IV Levaquin. We will continue IV antibiotics, pending blood cultures. - Continue medication for COPD including oral steroids and bronchodilators. - Overall patient symptoms have improved. (2) MARIFER (acute kidney injury) Current Visit: Yes Status: Acute Assessment and Plan: Patient was started on losartan recently, she also was on Lasix and Aldactone at home. Clinical picture and the lab values suggested volume depletion related acute kidney injury. Creatinine improved by IV fluid. - Continue gentle IV fluid rehydration, cautioned not to overdo given history of diastolic heart failure and the small amount of pericardial effusion. - Continue to hold losartan. BP well controlled. - Renal following. (3) Afib Current Visit: No Status: Chronic Assessment and Plan: Rate controlled, continue Xarelto. (4) COPD exacerbation Current Visit: Yes Status: Acute Assessment and Plan: Same as above. (5) Phrenic nerve palsy Current Visit: Yes Status: Chronic Assessment and Plan: Continue BiPAP. (6) Anemia Current Visit: Yes Status: Acute Assessment and Plan: Workup revealed iron deficiency, normal B12 and folate. Continue iron supplement. No signs of GI bleeding at this point. (7) Diabetes Current Visit: No Status: Chronic Assessment and Plan: BG was low, home basal insulin dose has decreased, continue monitoring, continue insulin sliding scale. (8) Diastolic CHF Current Visit: No Status: Chronic Assessment and Plan: History of diastolic heart failure, recent echo on 05/02/2018 revealed preserved ejection fraction, severe dilated LA, small amount of pericardial effusion without tamponade. Patient seems volume depleted on physical exam, we will continue gentle hydration with IV fluid. Continue to hold losartan. DVT Prophylaxis: Pt on Xarelto. - Time Spent with Patient Total time spent is greater than 50% in coordination of care (as documented) at patient's floor/unit and/or counseling patient: Greater than 35 minutes Plan of Care Discussed with: patient Internal Medicine: Result - Labs CBC & Chem 7: 05/14/18 04:36 05/14/18 04:36 Labs: Short CBC 05/14/18 Range/Units 04:36 WBC 11.2 H (4.3-11.1) K/mcL Hgb 8.1 L (11.5-15.4) g/dL Hct 27.7 L (35.3-44.9) % Plt Count 145 (140-400) K/mcL Neutrophils # 10.6 H (1.6-8.9) K/mcL BMP 05/14/18 04:36 Sodium 136 Potassium 5.3 H Chloride 95 L Carbon Dioxide 30 H BUN 63 H Creatinine 2.76 H Glucose 190 H Calcium 8.4 L - ABG Interpretation ABG results: ABG ABG pH 7.29 pH Units (7.32-7.45) L 05/13/18 11:27 ABG pCO2 90 mmHg (35-45) H* D 05/13/18 11:27 ABG pO2 56 mmHg (85-104) L D 05/13/18 11:27 ABG O2 Saturation 83 % (95-98) L 05/13/18 11:27 PT/INR, D-dimer PT 27.2 Seconds (9.4-12.1) H 05/13/18 09:40 Consult Discharge Plan - Plan Referrals: Aayush Chase MD [Primary Care Provider] - (3) Afib Qualifiers: Atrial fibrillation type: permanent Qualified Code(s): I48.2 - Chronic atrial fibrillation (6) Anemia Qualifiers: Anemia type: unspecified type Qualified Code(s): D64.9 - Anemia, unspecified (7) Diabetes Qualifiers: Diabetes mellitus type: type 2 Diabetes mellitus terminal block assembler insulin use: without terminal block assembler use Diabetes mellitus complication status: with kidney complications Diabetes mellitus complication detail: with chronic kidney disease Chronic kidney disease stage: stage 3 (moderate) Qualified Code(s): E11.22 - Type 2 diabetes mellitus with diabetic chronic kidney disease; N18.3 - Chronic kidney disease, stage 3 (moderate) (8) Diastolic CHF Qualifiers: Heart failure chronicity: chronic Qualified Code(s): I50.32 - Chronic diastolic (congestive) heart failure
[2018-05-14] MEDS: *HR* Rivaroxaban 15 MG TABLET PO SCH (17:53)
[2018-05-14] MEDS: Gabapentin 300 MG CAPSULE PO SCH (21:15)
[2018-05-14] MEDS: Insulin DETEMIR 100 UNIT/ML X5UNITS SQ SCH (21:15)
[2018-05-14] MEDS: Latanoprost 2.5 ML BOTTLE BOTH EYES SCH (21:19)
[2018-05-15] MEDS: Ipratropium/Albuterol Neb 3 ML IH SCH ×6 (03:58→23:32)
[2018-05-15 04:46] LABS: Basophils % 0.1 %; Hematocrit 25.4 % (35.3-44.9); Hemoglobin 7.5 g/dL (11.5-15.4); Immature Granulocytes % 0.6 % (0-4); Lymphocytes # 0.4 K/mcL (0.6-4.6); Mean Corpuscular HGB Conc 29.5 g/dL (31.6-35.5); Mean Corpuscular Hemoglobin 29.2 pg (28.0-33.3); Mean Corpuscular Volume 98.8 fL (83.0-100.0); Mean Platelet Volume 12.5 fL (9.4-12.4); Monocytes # 0.8 K/mcL (0.0-1.3); Monocytes % 6.2 %; Neutrophils # 11.9 K/mcL (1.6-8.9); Platelet Count 175 K/mcL (140-400); Red Blood Count 2.57 M/mcL (3.82-4.97); Red Cell Distribution Width 13.7 % (11.5-14.5); Segmented Neutrophils % 90.1 %
[2018-05-15 05:05] LABS: Calcium 8.3 mg/dL (8.6-10.3); Potassium 5.2 mEq/L (3.5-5.1)
[2018-05-15] MEDS: Iron Polysaccharide Complex 150 MG CAPSULE PO SCH (06:11)
[2018-05-15] MEDS: Ascorbic Acid 500 MG TABLET PO SCH (06:11)
[2018-05-15] MEDS: Isosorbide MONOnitrate (24 HR) 30 MG TAB.ER.24H PO SCH (07:46)
[2018-05-15] MEDS: Diltiazem CD (24hr) 120 MG CAPSULE PO SCH (07:46)
[2018-05-15] MEDS: *HR* SitaGLIPtin 25 MG TABLET PO SCH (07:46)
[2018-05-15] MEDS: Insulin LISPRO 300 UNITS/3 ML VIAL SQ SCH ×7 (07:48→20:42)
[2018-05-15] MEDS ORDERED: Levofloxacin 750 MG/150 ML 750 MG/150 ML BAG IVPB SCH (08:00)
[2018-05-15 09:00] LABS: Immature Reticulocyte % 32.5 % (11.0-38.0); Retculocyte # 0.04 M/mcL (0.05-0.10); Reticulocyte % 1.5 % (1.6-2.8)
[2018-05-15] MEDS ORDERED: PrednisoLONE Oral Soln 15 MG/5 ML UDC PO SCH (09:00)
--- NOTE | 2018-05-15 09:01 | Electrocardiograph Report ---
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
[2018-05-15] MEDS: 0.9 % Sodium Chloride 1,000 ML IVC SCH (10:04)
--- NOTE | 2018-05-15 12:57 | Internal Med Progress Note ---
Hospitalist Progress Note - Encounter Date of Encounter: 05/15/18 Time of Encounter: 12:55 - Subjective Interval History: reported had several large black stool, she attributed to taking iron supplement. her respiratory symptoms have much improved. She denies fever, cough, chest pain, palpitation, or syncope. - Exam Vitals: Temp Pulse Resp BP Pulse Ox 97.9 F 81 17 125/64 96 05/15/18 07:00 05/15/18 07:00 05/15/18 07:28 05/15/18 07:00 05/15/18 07:28 Exam: PHYSICAL EXAMINATION: GENERAL APPEARANCE: The patient is alert, oriented and in no acute distress. HEENT: Head is normocephalic. The sinuses are nontender. Pupils are equal and reactive. The nares are patent. Oropharynx clear without lesions. NECK: Supple without lymphadenopathy. HEART: Regular rate and rhythm. LUNGS: Decreased breathing sounds bilaterally. ABDOMEN: Soft, nontender, nondistended with good bowel sounds heard. Inguinal area is normal. EXTREMITIES: Without cyanosis, clubbing or edema. NEUROLOGICAL: Gross nonfocal. SKIN: Warm and dry without any rash. - Assessment and Plan (1) Acute on chronic respiratory failure with hypoxia and hypercapnia Current Visit: Yes Status: Acute Assessment and Plan: 62-year-old female with past medical history of severe COPD, phrenic nerve palsy , diastolic congestive heart failure, atrial fibrillation, and a diabetes presented with generalized weakness/confusion/frequent falls. ABG at ED revealed worsening hypoxia and the hypercapnia. - Patient reported inconsistent use of BiPAP at home, she was placed back on BiPAP with improvement of mental status, and lab values. We will continue BiPAP. - CT revealed possible pneumonia, patient was started on IV Levaquin. continue IV antibiotics, pending blood cultures. - Continue medication for COPD including bronchodilators. finished 3-day course of oral steroid, will stop today. - Overall patient symptoms have improved. (2) MARIFER (acute kidney injury) Current Visit: Yes Status: Acute Assessment and Plan: Patient was started on losartan recently, she also was on Lasix and Aldactone at home. Clinical picture and the lab values suggested volume depletion related acute kidney injury. Creatinine improved by IV fluid. - Continue gentle IV fluid rehydration, cautioned not to overdo given history of diastolic heart failure and the small amount of pericardial effusion. - Continue to hold losartan. BP well controlled. - Renal following. (3) Anemia Current Visit: Yes Status: Acute Assessment and Plan: Patient has history of atrial fibrillation and on Xatelto. has chronic anemia with Hgb baseline 9-10. had similar episodic low Hgb in January, when GI was consulted and EGD and C-scope were essentially normal. She was restarted on Xarelto. Hgb was 8.5 on admission and dropped to 7.5 today. Workup revealed low serum iron likely due to chronic disease, normal B12 and folate, Low reticulocyte count and index, suggests bone mclain insufficiency. - Pt already on iron supplement, FOBT won't be reliable and was not ordered, however, BUN continue to elevate despite improving Cr and renal function, highly suggests active GI bleeding. Given negative GI workup 4 months ago, and ongoing MARIFER, Tagged RBC nuclear test was ordered. GI was consulted. - continue to monitor H/H, type and screen, transfuse if Hgb <7.0. - Hold Xarelto. (4) Afib Current Visit: No Status: Chronic Assessment and Plan: Rate controlled, Hold Xarelto for suspected GI bleed. (5) COPD exacerbation Current Visit: Yes Status: Acute Assessment and Plan: Same as above. (6) Phrenic nerve palsy Current Visit: Yes Status: Chronic Assessment and Plan: Continue BiPAP. (7) Diabetes Current Visit: No Status: Chronic Assessment and Plan: BG elevated due to oral steroid. Home basal insulin adjusted. Oral steroid completed. (8) Diastolic CHF Current Visit: No Status: Chronic Assessment and Plan: History of diastolic heart failure, recent echo on 05/02/2018 revealed preserved ejection fraction, severe dilated LA, small amount of pericardial effusion without tamponade. Patient seems volume depleted on physical exam, we will continue gentle hydration with IV fluid. Continue to hold losartan. DVT Prophylaxis: SCDs. - Time Spent with Patient Total time spent is greater than 50% in coordination of care (as documented) at patient's floor/unit and/or counseling patient: Greater than 35 minutes Plan of Care Discussed with: patient Internal Medicine: Result - Labs CBC & Chem 7: 05/15/18 03:42 05/15/18 03:42 Labs: Short CBC 05/15/18 Range/Units 03:42 WBC 13.2 H (4.3-11.1) K/mcL Hgb 7.5 L (11.5-15.4) g/dL Hct 25.4 L (35.3-44.9) % Plt Count 175 (140-400) K/mcL Neutrophils # 11.9 H (1.6-8.9) K/mcL BMP 05/15/18 03:42 Sodium 138 Potassium 5.2 H Chloride 96 L Carbon Dioxide 34 H BUN 71 H Creatinine 2.50 H Glucose 227 H Calcium 8.3 L - ABG Interpretation ABG results: ABG ABG pH 7.29 pH Units (7.32-7.45) L 05/13/18 11:27 ABG pCO2 90 mmHg (35-45) H* D 05/13/18 11:27 ABG pO2 56 mmHg (85-104) L D 05/13/18 11:27 ABG O2 Saturation 83 % (95-98) L 05/13/18 11:27 PT/INR, D-dimer PT 27.2 Seconds (9.4-12.1) H 05/13/18 09:40 Consult Discharge Plan - Plan Referrals: Aayush Chase MD [Primary Care Provider] - (3) Anemia Qualifiers: Anemia type: unspecified type Qualified Code(s): D64.9 - Anemia, unspecified (4) Afib Qualifiers: Atrial fibrillation type: permanent Qualified Code(s): I48.2 - Chronic atrial fibrillation (7) Diabetes Qualifiers: Diabetes mellitus type: type 2 Diabetes mellitus termite control service representative insulin use: without termite control service representative use Diabetes mellitus complication status: with kidney complications Diabetes mellitus complication detail: with chronic kidney disease Chronic kidney disease stage: stage 3 (moderate) Qualified Code(s): E11.22 - Type 2 diabetes mellitus with diabetic chronic kidney disease; N18.3 - Chronic kidney disease, stage 3 (moderate) (8) Diastolic CHF Qualifiers: Heart failure chronicity: chronic Qualified Code(s): I50.32 - Chronic diastolic (congestive) heart failure
--- NOTE | 2018-05-15 13:20 | Gastroenterology Consult Note ---
<Pastor Reinoso - Last Filed: 05/15/18 13:20> Date of Encounter: 05/15/18 Time of Encounter: 10:30 - Assessment and plan (1) Anemia Status: Acute Assessment and plan: Hgb on admission 8.5 with MCV 100.7 BUN 54 and today Hgb 7.5 with MCV 98.8 and BUN 71. Iron level 25 on 05/14 with ferritin 664. Continue to monitor CBC and transfuse PRBC as needed. GI bleeding scan has been ordered. Plan for push enteroscopy and colonoscopy tomorrow. Clear liquid diet today, no red or purple. NPO at midnight. If not clear by 6 AM, give 2 tap water enemas. If scopes are negative will consider capsule endoscopy as outpatient. Qualifiers: Anemia type: unspecified type Qualified Code(s): D64.9 - Anemia, unspecified (2) Elevated ferritin Status: Acute Assessment and plan: Ferritin 664 check hemochromatosis panel. (3) Morbid obesity Status: Chronic - Time Spent With Patient Total time spent is greater than 50% in coordination of care (as documented) at patient's floor/unit and/or counseling patient: GI History of Present Illness - Data of Consult Patient: known to practice within the last 3 years Consult date: 05/15/18 Requesting Physician: Reynaldo Allen - Consult Narrative Reason for consult: GI bleed History of present illness: Ms. Cox is a 62 year old female with PMHx of CHF, COPD, DM, fibromyalgia, HLD , HTN who was admitted with weakness and confusion. She was hypoxic and hypercapnic in the emergency department and was placed on BiPAP and her mental status improved. She was also found to have MARIFER with creatinine of 3.19. We have been consulted to evaluate her anemia. Hgb on admission 8.5 with MCV 100.7 BUN 54 and today Hgb 7.5 with MCV 98.8 and BUN 71. Iron level 25 on 05/14 with ferritin 664. She was seen in January 2018 for anemia and EGD/colonoscopy negative for source of bleeding. Procedures: Colonoscopy 01/17/2018 Dr. Espino: Two hyperplastic polyps, repeat 5 years EGD 01/17/2018 Dr. Espino: LA Grade A reflux esophagitis, gastritis. Colonoscopy 08/12/2014 Dr. Magallon: Poor prep, stool in sigmoid colon, descending colon, ascending colon, and cecum. Internal hemorrhoids. EGD 08/12/2014 Dr. Magallon: Hiatus hernia, irregular Z-line, acute gastritis/ duodenitis, one duodenal ulcer. 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 Psychiatric history: anxiety, depression - Past Surgical History Surgical History: no surgical history Additional surgical history: Knee scope - Social History Smoking Status: Never smoker Smokeless Tobacco Status: No Alcohol use: none Drug use: none - Family History Father Family Member Ethnicity: Non- Living Status: Hx Family Cardiac Disorders: Yes ([place], HTN) Brother Family Member Ethnicity: Non- Living Status: Still Living Hx Family GI Disorders: Yes Sister Family Member Ethnicity: Non- Living Status: Hx Family Cardiac Disorders: Yes Mother Adopted: No Family Member Ethnicity: Non- Living Status: Hx Family Cardiac Disorders: Yes Hx Family Respiratory Disorders: Yes (COPD) Hx Family Cancer: Yes (skin) Hx Family GI Disorders: No Hx Family Endocrine Disorder: Yes (DM) Hx Family Neuromuscular Disorders: No Hx Family Neurologic Disorders: Yes (CVA with rt sided weakness) Hx Family HEENT Disorders: Yes (KAW) Hx Family Autoimmune Disorders: No - Gastrointestinal Gastrointestinal: Present: as per HPI - Constitutional Constitutional: as per HPI - EENT Eyes: as per HPI Ears: Present: as per HPI Nose, mouth and throat: Present: as per HPI - Cardiovascular Cardiovascular ROS: Present: as per HPI - Respiratory Respiratory IM: Present: as per HPI - Genitourinary Genitourinary: Absent: change in color, Urinary frequency - Neurological ROS Neurological GI: Present: as per HPI - Hematologic/Lymphatic Hematologic/Lymphatic pediatric: Present: as per HPI - Musculoskeletal Musculoskeletal ROS GI: Present: as per HPI - Integumentary Integumentary GI: Present: as per HPI - Psychiatric ROS Psychiatric GI: Present: as per HPI - Endocrine Endocrine IM: Present: as per HPI - Constitutional Vitals: Temp Pulse Resp BP Pulse Ox 97.9 F 81 17 125/64 96 05/15/18 07:00 05/15/18 07:00 05/15/18 07:28 05/15/18 07:00 05/15/18 07:28 General appearance: Present: cooperative, A&O X 3, no acute distress, answers questions appropriately - Head Head exam: Present: atraumatic, normocephalic - Eye Eye exam: Present: normal appearance, sclera anicteric - ENT ENT exam: Present: mucous membranes dry - Neck Neck exam general surgery: Present: normal inspection, trachea midline - Respiratory Respiratory exam: Present: decreased breath sounds, CTAB - Cardiovascular Cardiovascular exam: Present: RRR, +S1, +S2 - GI/Abdominal GI/Abdominal exam: Present: normal bowel sounds, soft, no peritoneal signs. Absent: distended, firm, guarding, tenderness - Rectal Rectal exam: Present: deferred - Extremities Exam Extremities exam: Present: warm - Neurological Exam Neurological exam: Present: no focal deficits - Psychiatric Psychiatric exam: Present: normal affect, normal mood - Skin Skin exam: Present: dry, intact, normal color, warm Results - Labs CBC & Chem 7: 05/15/18 03:42 05/15/18 03:42 Labs: Last Result Calcium 8.3 mg/dL (8.6-10.3) L 05/15/18 03:42 Iron 25 mcg/dL (50-170) L 05/14/18 04:36 % Saturation 14 % (15-50) L 05/14/18 04:36 Transferrin 128 mg/dL (203-362) L 05/14/18 04:36 Ferritin 664 ng/mL (10-120) H 05/14/18 04:36 Troponin I < 0.03 ng/mL (< 0.04) 05/13/18 09:40 Vitamin B12 293 pg/mL (250-1100) 05/14/18 04:36 Folate 18.7 ng/mL (3.0-16.0) H 05/14/18 04:36 Entire Visit Hgb 7.5 g/dL (11.5-15.4) L 05/15/18 03:42 Hct 25.4 % (35.3-44.9) L 05/15/18 03:42 PT 27.2 Seconds (9.4-12.1) H 05/13/18 09:40 Ferritin 664 ng/mL (10-120) H 05/14/18 04:36 Total Bilirubin 0.5 mg/dL (0.3-1.0) 05/13/18 09:40 AST 18 Units/L (13-39) 05/13/18 09:40 ALT 15 Units/L (7-52) 05/13/18 09:40 Lipase 30 Units/L (11-82) 05/13/18 11:04 Folate 18.7 ng/mL (3.0-16.0) H 05/14/18 04:36 - ABG ABG results: ABG ABG pH 7.29 pH Units (7.32-7.45) L 05/13/18 11:27 ABG pCO2 90 mmHg (35-45) H* D 05/13/18 11:27 ABG pO2 56 mmHg (85-104) L D 05/13/18 11:27 ABG O2 Saturation 83 % (95-98) L 05/13/18 11:27 PT/INR, D-dimer PT 27.2 Seconds (9.4-12.1) H 05/13/18 09:40 Consult Discharge Plan - Plan Referrals: Aayush Chase MD [Primary Care Provider] - 05/24/18 4:00 pm (Follow up as scheduled. ) Prescriptions: Diltiazem CD (24hr) [Cardizem CD] 180 mg PO DAILY #30 cap.er.24h levoFLOXacin [Levaquin] 750 mg PO DAILY 1 Days #1 tablet <Kyle Godinez - Last Filed: 05/23/18 06:43> Date of Encounter: 05/15/18 - Time Spent With Patient Total time spent is greater than 50% in coordination of care (as documented) at patient's floor/unit and/or counseling patient: GI History of Present Illness - Data of Consult Requesting Physician: Svitlana Flores MD - Consult Narrative History of present illness: Ms. Cox is a 62 year old female - Constitutional Vitals: Temp Pulse Resp BP Pulse Ox 98.1 F 101 18 114/60 98 05/18/18 11:14 05/18/18 11:14 05/18/18 11:14 05/18/18 11:14 05/18/18 11:14 Results - Labs CBC & Chem 7: 05/17/18 04:27 05/17/18 04:27 Labs: Last Result Calcium 8.3 mg/dL (8.6-10.3) L 05/17/18 04:27 Iron 25 mcg/dL (50-170) L 05/14/18 04:36 % Saturation 14 % (15-50) L 05/14/18 04:36 Transferrin 128 mg/dL (203-362) L 05/14/18 04:36 Ferritin 664 ng/mL (10-120) H 05/14/18 04:36 Troponin I < 0.03 ng/mL (< 0.04) 05/13/18 09:40 Vitamin B12 293 pg/mL (250-1100) 05/14/18 04:36 Folate 18.7 ng/mL (3.0-16.0) H 05/14/18 04:36 Entire Visit Hgb 8.5 g/dL (11.5-15.4) L 05/17/18 04:27 Hct 29.1 % (35.3-44.9) L 05/17/18 04:27 PT 27.2 Seconds (9.4-12.1) H 05/13/18 09:40 Ferritin 664 ng/mL (10-120) H 05/14/18 04:36 Total Bilirubin 0.5 mg/dL (0.3-1.0) 05/13/18 09:40 AST 18 Units/L (13-39) 05/13/18 09:40 ALT 15 Units/L (7-52) 05/13/18 09:40 Lipase 30 Units/L (11-82) 05/13/18 11:04 Folate 18.7 ng/mL (3.0-16.0) H 05/14/18 04:36 Hemochromat Specimen WHOLE BLOOD 05/15/18 14:25 Hemochrom C282Y Mutation HETEROZYGOUS 05/15/18 14:25 Hemochrom H63D Mutation HETEROZYGOUS 05/15/18 14:25 Hemochrom S65c Mutation NEGATIVE 05/15/18 14:25 Hemochromatosis Interp SEE NOTE 05/15/18 14:25 - ABG ABG results: ABG ABG pH 7.29 pH Units (7.32-7.45) L 05/13/18 11:27 ABG pCO2 90 mmHg (35-45) H* D 05/13/18 11:27 ABG pO2 56 mmHg (85-104) L D 05/13/18 11:27 ABG O2 Saturation 83 % (95-98) L 05/13/18 11:27 PT/INR, D-dimer PT 27.2 Seconds (9.4-12.1) H 05/13/18 09:40
--- NOTE | 2018-05-15 15:10 | Nephrology Progress Note ---
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 Trending better. (2) CKD (chronic kidney disease), stage III Current Visit: Yes Status: Chronic (3) Hyperkalemia Current Visit: Yes Status: Acute Trending better. Rec a low K+ diet. (4) Anemia Current Visit: No Status: Chronic (5) Hypertension Current Visit: No Status: Chronic Qualifiers: Hypertension type: essential hypertension Qualified Code(s): I10 - Essential (primary) hypertension Subjective Principal diagnosis: MARIFER on CKD Interval history: Pt was s/e earlier today. She was wearing he CPAP. Her son was present at bedside. She did not affirm N/V/D or other uremic symptoms. Objective - Vital Signs Vital signs: Vital Signs Temp Pulse Resp BP Pulse Ox 05/15/18 07:28 17 96 05/15/18 07:00 97.9 F 81 17 125/64 96 05/15/18 04:00 20 97 05/15/18 03:34 97.8 F 76 17 118/64 94 05/14/18 23:46 97.6 F 75 17 102/56 97 05/14/18 23:26 23 93 05/14/18 20:08 97.2 F L 76 17 123/61 97 05/14/18 19:55 16 94 05/14/18 16:44 97.7 F 81 20 126/71 92 05/14/18 15:16 19 91 Intake and Output 05/14/18 05/15/18 05/15/18 23:59 07:59 15:59 Intake Total 1000 / 1000 150 / 150 Output Total 350 / 350 250 / 250 Balance 650 / 650 -250 / -250 150 / 150 Intake: IV Fluids 1000 / 1000 150 / 150 Levaquin Premix 750mg/150 mL 150 / 150 750 mg In 150 ml @ 100 mls/hr IVPB Q[facility]H [facility] Rx#:[id number] Output: Catheter 350 / 350 250 / 250 Other: Stool Size Moderate Stool Consistency formed Stool Color Brown # Bowel Movements 1 Weight 119.1 kg Blood Glucose* 219 232 - General Appearance General appearance: Present: well-developed, well-nourished, obese EENT: Present: ATNC, PERRL, mucous membranes moist Neck: Present: supple Respiratory: Present: clear Cardiology: Present: edema (2+ pretibial pitting edema b/l (chronic according to the pt) but no edema in hands b/l), irregular rhythm, normal S1, normal S2 Gastrointestinal: Present: normoactive bowel sounds, no tenderness, no guarding Integumentary: Present: no rash, warm and dry Neurologic: Present: no focal deficit, no asterixis, alert and oriented x3 Musculoskeletal: Present: no deformities, no erythema Psychiatric: Present: mood/affect appropriate, cooperative - Lab 05/15/18 03:42 05/15/18 03:42 Most recent lab results ABG pH 7.29 pH Units (7.32-7.45) L 05/13/18 11:27 ABG pCO2 90 mmHg (35-45) H* D 05/13/18 11:27 ABG pO2 56 mmHg (85-104) L D 05/13/18 11:27 ABG HCO3 44 mEq/L (21-27) H 05/13/18 11:27 ABG O2 Saturation 83 % (95-98) L 05/13/18 11:27 Calcium 8.3 mg/dL (8.6-10.3) L 05/15/18 03:42 Phosphorus 6.0 mg/dL (2.7-4.5) H 05/13/18 09:40 Magnesium 2.3 mg/dL (1.6-2.6) 05/14/18 04:36 Urine Sodium 11.0 mEq/L 05/15/18 08:01 Consult Discharge Plan - Plan Referrals: Aayush Chase MD [Primary Care Provider] -
[2018-05-15] MEDS ORDERED: Polyethylene Glycol 3350 255 GM POWDER PO ONE (17:00)
[2018-05-15] MEDS: Gabapentin 300 MG CAPSULE PO SCH (20:38)
[2018-05-15] MEDS: Latanoprost 2.5 ML BOTTLE BOTH EYES SCH (20:42)
[2018-05-15] MEDS ORDERED: Insulin DETEMIR 100 UNIT/ML X5UNITS SQ SCH (21:00)
[2018-05-15] MEDS ORDERED: Levofloxacin 500 MG/100 ML 500 MG/100 ML BAG IVPB SCH (22:00)
[2018-05-16] MEDS: 0.9 % Sodium Chloride 1,000 ML IVC SCH (02:31)
[2018-05-16] MEDS: Ipratropium/Albuterol Neb 3 ML IH SCH ×6 (04:21→23:02)
[2018-05-16 04:26] LABS: Basophils % 0.1 %; Hemoglobin 7.8 g/dL (11.5-15.4); Immature Granulocytes % 0.6 % (0-4); Lymphocytes # 0.6 K/mcL (0.6-4.6); Lymphocytes % 5.2 %; Mean Corpuscular Volume 96.7 fL (83.0-100.0); Mean Platelet Volume 12.3 fL (9.4-12.4); Monocytes % 8.3 %; Neutrophils # 9.8 K/mcL (1.6-8.9); Platelet Count 175 K/mcL (140-400); Red Blood Count 2.69 M/mcL (3.82-4.97); Red Cell Distribution Width 13.6 % (11.5-14.5); Segmented Neutrophils % 85.8 %
[2018-05-16 04:45] LABS: Calcium 8.1 mg/dL (8.6-10.3); Potassium 4.5 mEq/L (3.5-5.1)
[2018-05-16] MEDS: Ascorbic Acid 500 MG TABLET PO SCH (06:34)
[2018-05-16] MEDS: Iron Polysaccharide Complex 150 MG CAPSULE PO SCH (06:34)
[2018-05-16] MEDS: Insulin LISPRO 300 UNITS/3 ML VIAL SQ SCH ×7 (08:23→20:27)
[2018-05-16] MEDS: Diltiazem CD (24hr) 120 MG CAPSULE PO SCH (08:43)
[2018-05-16] MEDS: *HR* SitaGLIPtin 25 MG TABLET PO SCH (08:43)
[2018-05-16] MEDS: Isosorbide MONOnitrate (24 HR) 30 MG TAB.ER.24H PO SCH (08:43)
[2018-05-16] MEDS: Insulin DETEMIR 100 UNIT/ML X5UNITS SQ SCH ×2 (10:37→20:27)
[2018-05-16] MEDS: Levofloxacin 750 MG/150 ML 750 MG/150 ML BAG IVPB SCH (10:38)
--- NOTE | 2018-05-16 10:52 | Nephrology Progress Note ---
Date of Encounter: 05/16/18 Time of Encounter: 10:52 - Assessment and Plan (1) MARIFER (acute kidney injury) Current Visit: Yes Status: Acute Renal function trending better. Doing well from a nephrology perspective; continue to follow a renal protective strategy. (2) CKD (chronic kidney disease), stage III Current Visit: Yes Status: Chronic Hx of baseline CKD stage III. (3) Hyperkalemia Current Visit: Yes Status: Acute Trending better. Rec a low K+ diet. (4) Anemia Current Visit: Yes Status: Acute With recent worsening anemia, I agree with a GI work up. Qualifiers: Anemia type: iron deficiency Iron deficiency anemia type: chronic blood loss Qualified Code(s): 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 (chronic) (5) Hypertension Current Visit: Yes Status: Chronic BPs are controlled. Qualifiers: Hypertension type: essential hypertension Qualified Code(s): I10 - Essential (primary) hypertension Subjective Principal diagnosis: MARIFER on CKD Interval history: Pt was s/e earlier today. She did not affirm N/V/D or other uremic symptoms. She has been drinking her bowel prep. Objective - Vital Signs Vital signs: Vital Signs Temp Pulse Resp BP Pulse Ox 05/16/18 07:47 16 97 05/16/18 07:31 98.0 F 92 19 120/76 96 05/16/18 04:23 18 96 05/16/18 03:44 98.2 F 108 19 122/66 96 05/16/18 00:35 97.6 F 121 19 124/70 96 05/15/18 23:35 20 99 05/15/18 23:09 97 05/15/18 19:07 97.6 F 108 20 104/63 95 05/15/18 15:32 99.1 F 104 21 125/70 97 05/15/18 15:21 17 96 Intake and Output 05/15/18 05/16/18 05/16/18 23:59 07:59 15:59 Intake Total 1840 / 1840 Output Total 650 / 650 1075 / 1075 350 / 350 Balance 1190 / 1190 -1075 / -1075 -350 / -350 Intake: IV Fluids 1000 / 1000 0.9 % Sodium Chloride 1,000 ML 1000 / 1000 @ 75 mls/hr IVC .[id number] [facility] Rx #:[id number] Oral 840 / 840 Output: Urine 350 / 350 Catheter 650 / 650 1075 / 1075 Other: Stool Size Moderate Stool Consistency loose Stool Color Brown Weight 120.4 kg Blood Glucose* 257 253 Patient Weight 05/16/18 23:59 Weight 120.4 kg - General Appearance General appearance: Present: well-developed, well-nourished, appears started age EENT: Present: ATNC, PERRL, mucous membranes moist Neck: Present: supple Respiratory: Present: clear Cardiology: Present: no murmurs, edema (chronic lymphedema b/l ), regular rate, normal S1, normal S2 Gastrointestinal: Present: normoactive bowel sounds, no guarding, obese Integumentary: Present: no rash, warm and dry Neurologic: Present: no focal deficit, no asterixis, alert and oriented x3 Musculoskeletal: Present: no erythema, no cyanosis Psychiatric: Present: mood/affect appropriate, cooperative - Lab 05/16/18 03:55 05/16/18 03:55 Most recent lab results ABG pH 7.29 pH Units (7.32-7.45) L 05/13/18 11:27 ABG pCO2 90 mmHg (35-45) H* D 05/13/18 11:27 ABG pO2 56 mmHg (85-104) L D 05/13/18 11:27 ABG HCO3 44 mEq/L (21-27) H 05/13/18 11:27 ABG O2 Saturation 83 % (95-98) L 05/13/18 11:27 Calcium 8.1 mg/dL (8.6-10.3) L 05/16/18 03:55 Phosphorus 6.0 mg/dL (2.7-4.5) H 05/13/18 09:40 Magnesium 2.3 mg/dL (1.6-2.6) 05/14/18 04:36 Urine Sodium 11.0 mEq/L 05/15/18 08:01 - Imaging Kidney/bladder ultrasound: report reviewed Consult Discharge Plan - Plan Referrals: Aayush Chase MD [Primary Care Provider] -
--- NOTE | 2018-05-16 11:42 | Internal Med Progress Note ---
Hospitalist Progress Note - Encounter Date of Encounter: 05/16/18 Time of Encounter: 11:35 - Subjective Interval History: Ms. Cox is a 62 year old female who has hx of CAD, MO, CHF diabetes, fibromyalgia, hyperlipidemia, hypertensionCOPD on 4 L NC at home presented to with progressing weakness/confusion in the last 24 hours preceding this admission. She experienced a couple of falls in the place she lives.We found her to have hypoxic and hypercapnic in the emergency department. She does have underlying chronic hypoxia/hypercapnia. We found her to have acute kidney injury with a creatinine of 3.19. Her creatinine from 05/02 was 1.19. The patient does have her chronic anemia. hemoglobin is 8.5 on admision. It was 9.7 on 05/02/2018. Patient waas admitted on 05/13 for AMS from acute on chronic hypoxic and hypercapnic respiratory failure required continous BIPAP. Patient is doing well, mental improved, and back to the baseline. Cr tranding, on 4 L NC, but she has worsening b/l leg swelling, will d/c IVF She is on bowel prep for EGD and colonoscopy due to anemia. - Exam Vitals: Temp Pulse Resp BP Pulse Ox 97.6 F 103 18 119/68 96 05/16/18 11:28 05/16/18 11:28 05/16/18 11:28 05/16/18 11:28 05/16/18 11:28 Exam: CONSTITUTIONAL: patient appears as an age appropriate female in no acute distress. EYES Clear sclerae, bilateral pupils are equal, reactive to light. EMOI. RESPIRATORY: No accessory muscle use, bilateral clear to auscultation, no wheezing, no crackles/rales. CARDIOVASCULAR: Regular heart rate, normal S1 and S2, no murmurs GASTROINTESTINAL: bowel sounds present, soft, no tenderness. MUSCULOSKELETAL: Joints in normal range of motion, no clubbing, +++ edema, no cyanosis. Bilateral peripheral pulses 2+. NEUROLOGIC: CN II to XII are grossly intact, no focal neurological deficit. - Assessment and Plan (1) Acute on chronic respiratory failure with hypoxia and hypercapnia Current Visit: Yes Status: Acute Assessment and Plan: 62-year-old female with past medical history of severe COPD, phrenic nerve palsy , admitted on 05/13 for SOB and AMS, ABG at ED revealed worsening hypoxia and the hypercapnia. she is supporsed to wear BIPAP at night for advanced COPD and AIMEE - Patient reported inconsistent use of BiPAP at home, improved with continous BiPAP. - CT revealed possible pneumonia, on IV Levaquin ( 05/15--). continue IV antibiotics, pending blood cultures. - Continue bronchodilators. finished 3-day course of oral steroid on 05/15, no wheezing. - mental status improved, on 4 L NC during the day. (2) Renal failure (ARF), acute on chronic Current Visit: No Status: Resolved Assessment and Plan: ARF on CKD III, Cr trending down, will dc IVF, may need to restart lasix due to significant leg swelling (3) Anemia Current Visit: Yes Status: Acute Assessment and Plan: acute on chronic anemia, possible GI bleeding, GI is on board, getting EGD and colonoscopy today (4) Hypertension Current Visit: Yes Status: Chronic (5) Diabetes Current Visit: Yes Status: Chronic Assessment and Plan: increased detemir to 20 units BID (6) Morbid obesity Current Visit: No Status: Chronic (7) Pneumonia Current Visit: No Status: Acute Assessment and Plan: continue levaquin (8) Diastolic CHF Current Visit: Yes Status: Chronic Assessment and Plan: if Cr stable will need to start lasix tomorrow (9) AIMEE (obstructive sleep apnea) Current Visit: Yes Status: Chronic Assessment and Plan: nocturnal BIPAP (10) Afib Current Visit: Yes Status: Chronic Assessment and Plan: HR well controlled with cardiazem, hold xarelto for GI bleeding (11) COPD (chronic obstructive pulmonary disease) Current Visit: Yes Status: Chronic Assessment and Plan: on 4 L NC at home (12) COPD exacerbation Current Visit: Yes Status: Acute Assessment and Plan: improved with steroids (13) Phrenic nerve palsy Current Visit: Yes Status: Chronic DVT Prophylaxis: need to resume xarelto when GI is ok - Summary of Assessment and Plan Summary of Assessment and Plan: neeed diurresis before discharge, she has sginificant leg swelling, discharge in 1-2 days - Time Spent with Patient Total time spent is greater than 50% in coordination of care (as documented) at patient's floor/unit and/or counseling patient: 25 - 35 minutes Internal Medicine: Result - Labs CBC & Chem 7: 05/16/18 03:55 05/16/18 03:55 Labs: Short CBC 05/16/18 Range/Units 03:55 WBC 11.5 H (4.3-11.1) K/mcL Hgb 7.8 L (11.5-15.4) g/dL Hct 26.0 L (35.3-44.9) % Plt Count 175 (140-400) K/mcL Neutrophils # 9.8 H (1.6-8.9) K/mcL BMP 05/16/18 03:55 Sodium 138 Potassium 4.5 Chloride 97 L Carbon Dioxide 34 H BUN 68 H Creatinine 1.39 H Glucose 281 H Calcium 8.1 L - ABG Interpretation ABG results: ABG ABG pH 7.29 pH Units (7.32-7.45) L 05/13/18 11:27 ABG pCO2 90 mmHg (35-45) H* D 05/13/18 11:27 ABG pO2 56 mmHg (85-104) L D 05/13/18 11:27 ABG O2 Saturation 83 % (95-98) L 05/13/18 11:27 PT/INR, D-dimer PT 27.2 Seconds (9.4-12.1) H 05/13/18 09:40 - Impressions Impressions GI Bleed Scan Nuclear Medicine 05/15/18 07:38 IMPRESSION: No evidence of active GI bleeding during acquisition. RECOMMENDATIONS: If the patient shows hemodynamic signs of an active bleed in the next 20 hours, additional images can be acquired. D/ / Brijesh Castro MD / Brijesh Castro MD Interpreting Provider: Brijesh Castro MD Retroperitoneum Ultrasound 05/15/18 14:30 IMPRESSION: 1. No evidence of hydronephrosis or hydroureter. 2. Renal cortical thinning of the left kidney may represent sequela of prior infection. Less likely, but also possible, would be sequela of chronic renal insufficiency given the asymmetry. 3. The patient has known left renal calculi not well demonstrated on today's ultrasound. D/ / James Paulino / James Paulino Interpreting Provider: James Paulino Consult Discharge Plan - Plan Referrals: Aayush Chase MD [Primary Care Provider] - (2) Renal failure (ARF), acute on chronic Qualifiers: Acute renal failure type: unspecified Chronic kidney disease stage: stage 3 ( moderate) Qualified Code(s): N17.9 - Acute kidney failure, unspecified; N18.3 - Chronic kidney disease, stage 3 (moderate) (3) Anemia Qualifiers: Anemia type: iron deficiency Iron deficiency anemia type: chronic blood loss Qualified Code(s): 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 ( chronic) (4) Hypertension Qualifiers: Hypertension type: essential hypertension Qualified Code(s): I10 - Essential (primary) hypertension (5) Diabetes Qualifiers: Diabetes mellitus type: type 2 Diabetes mellitus senior care insulin use: without senior care use Diabetes mellitus complication status: with kidney complications Diabetes mellitus complication detail: with chronic kidney disease Chronic kidney disease stage: stage 3 (moderate) Qualified Code(s): E11.22 - Type 2 diabetes mellitus with diabetic chronic kidney disease; N18.3 - Chronic kidney disease, stage 3 (moderate) (7) Pneumonia Qualifiers: Pneumonia type: due to unspecified organism Laterality: left Lung location: unspecified part of lung Qualified Code(s): J18.9 - Pneumonia, unspecified organism (8) Diastolic CHF Qualifiers: Heart failure chronicity: chronic Qualified Code(s): I50.32 - Chronic diastolic (congestive) heart failure (10) Afib Qualifiers: Atrial fibrillation type: chronic Qualified Code(s): I48.2 - Chronic atrial fibrillation (11) COPD (chronic obstructive pulmonary disease) Qualifiers: COPD type: COPD with acute exacerbation Qualified Code(s): J44.1 - Chronic obstructive pulmonary disease with (acute) exacerbation
[2018-05-16] MEDS: 0.9 % Sodium Chloride 500 ML IVC SCH (13:12)
--- NOTE | 2018-05-16 13:16 | Anesthesia Evaluation PreOp ---
Date of Encounter: 05/16/18 Time of Encounter: 13:13 - Past History Planned Operation: EGD/Colonoscopy Cardiac History: CHF, HTN, Hyperlipidemia, Arrhythmia (Chronic Afib) Pulmonary History: COPD (chronic resp failure), Other Other Medical History: Renal (CRF), Diabetes Type II, Other ([place] BMI-50.2) Anesthesia History: No Prior Anesthetic Complications, Past Anesthesia : No Alcohol Use: none Drug use: none Medications and Allergies Latanoprost [Xalatan] 1 drop BOTH EYES HS 04/06/16 [History] SitaGLIPtin [Januvia] 100 mg PO DAILY 04/06/16 [History] Albuterol Sulfate [Albuterol Inhaler] 2 puff IH Q4H PRN 04/14/17 [History] Citalopram Hydrobromide [Citalopram HBr] 40 mg PO HS 04/14/17 [History] Docusate [Colace] 100 mg PO DAILY 04/14/17 [History] Gabapentin [Neurontin] 600 mg PO HS 04/14/17 [History] Valsartan [Diovan] 80 mg PO DAILY 04/14/17 [History] Spironolactone [Aldactone] 25 mg PO DAILY 07/24/17 [History] Brimonidine 0.2% [Alphagan] 1 drop BOTH EYES AD 12/19/17 [History] Propylene Glycol/Peg 400 [Systane Ultra 0.4-0.3% Eye Drp] 1 drop OP QID [History] Ipratropium/Albuterol Neb [Duoneb] 3 ml IH [id number] PRN inhsol 01/18/18 [Rx] Iron Polysaccharide Complex [Ferrex 150] 150 mg PO DAILY capsule 01/18/18 [Rx] Omeprazole [PriLOSEC] 40 mg PO DAILY@0630 capsule.dr 01/18/18 [Rx] Ascorbic Acid [Vitamin C] 500 mg PO 0630 #30 tablet 01/25/18 [Rx] Isosorbide MONOnitrate (24 HR) [Imdur] 30 mg PO DAILY #30 tab.er.24h 01/25/18 [ Rx] Esomeprazole Magnesium [Nexium] 40 mg PO DAILY 03/29/18 [History] Furosemide [Lasix] 40 mg PO BID 03/29/18 [History] Ibandronate Sodium [Boniva] 150 mg PO QMONTH 03/29/18 [History] Atorvastatin [Lipitor] 20 mg PO HS #30 tablet 05/03/18 [Rx] Diltiazem CD (24hr) [Cardizem CD] 120 mg PO DAILY #30 cap.er.24h 05/03/18 [Rx] Insulin DETEMIR [Levemir Flextouch] 40 unit SQ HS #12 insuln.pen 05/03/18 [Rx] Rivaroxaban [Xarelto] 20 mg PO 1700 #30 tablet 05/03/18 [Rx] 3 Allergy/AdvReac Type Severity Reaction Status Date / Time hydrocodone [From Vicodin] AdvReac Nausea Verified 05/13/18 10:46 Hydromorphone [From Dilaudid] AdvReac Nausea Verified 05/13/18 10:46 - Meds/Allergy Pre-op Review Medications Reviewed: Yes Allergies Reviewed: Yes Beta Blockers on Current Med List: Yes If Beta Blockers taken, Date/Time (Last Dose taken): 2 mg metoprolol@1350 2017 Anesthesia Results - Labs 05/16/18 03:55 05/16/18 03:55 PFT Procedure Report Date of procedure: 03/17/16 Procedure Note: Conclusion: Spirometry: Restrictive ventilatory impairment. FVC 1.06, 34% predicted and FEV1 0.82, 34% predicted ratio 77 Lung volumes: Supple without capacity reduced 1.13, 59% predicted Diffusion: Severe pass exchange abnormality, DLCO corrected for hemoglobin 7.10 , 32% predicted Flow volume loop: Restrictive. Atrial fibrillation with elevated heart rates. LVEF 50-55%. Indeterminate diastolic function. RV size appears normal on this study. Function is low normal by Doppler. Severely dilated left atrium. Mild tricuspid regurgitation. Mild pulmonary hypertension. There is a small circumferential pericardial effusion present that appears moderate along the inferior border of the RV. There is no echocardiographic evidence of tamponade. - Imaging EKG: report reviewed (SINUS RHYTHM LOW QRS VOLTAGE INCOMPLETE RIGHT BUNDLE BRANCH BLOCKSINUS RHYTHM) Anesthesia Exam Vital Signs/O2 Sat, Most Current Temp Pulse Resp BP Pulse Ox 97.8 F 104 22 140/68 99 05/16/18 13:10 05/16/18 13:40 05/16/18 13:10 05/16/18 13:10 05/16/18 13:10 NPO (# of Hours): > 8 hrs Pain Scale: 0 Pain Scale Used: Numeric (1 - 10) - HEENT Pupil (Motor): Pupils equal, EOMI Mallampati: III Teeth: Normal Oral Opening: Greater than 3 - SNOW PLOW OPERATOR LOC: Oriented SNOW PLOW OPERATOR Motor: Normal RUE, Normal LUE, Normal RLE, Normal LLE, Normal Face SNOW PLOW OPERATOR Sensory: Normal: RUE, LUE, RLE, LLE, Face - Cardiac Rhythm: Regular Murmur: None JVD: No Carotid Bruit: No - Pulmonary Breath Sounds: bilateral Clear Respiratory Effort: Symmetrical Anesthesia Assess/Plan ASA Score: 4 Modified Madelin Scale for Level of Consciousness: Cooperative, oriented, and tranquil Anesthetic Plan: MAC Autologous Blood: Yes Monitoring Plan: Standard Monitors Recovery Plan: Other
[2018-05-16] MEDS ORDERED: Simethicone 40 MG/0.6 ML MLS IR ONE (14:11)
[2018-05-16] MEDS ORDERED: Tetracaine/Benzocaine/Butamben 200MG/SPRAY (100SPY/BOT) MM ONE (14:11)
[2018-05-16] MEDS ORDERED: Propofol 500 MG/50 ML INFUS..BTL ONE (14:25)
--- NOTE | 2018-05-16 15:54 | Anesthesia Evaluation Post Op ---
Date of Encounter: 05/16/18 Time of Encounter: 15:53 - Vital Signs Vital Signs: Vital Signs/O2 Sat, Most Current Temp Pulse Resp BP Pulse Ox 98.0 F 96 16 124/72 98 05/16/18 15:35 05/16/18 15:45 05/16/18 15:45 05/16/18 15:45 05/16/18 15:45 - Lungs Lungs: Clear Ascult./Percussion - Airway Airway: Non-obstructed - Cardiovascular Regular Rate - Mental Status Mental Status: Alert & Oriented, Answers Appropriately - Pain Pain Scale: 0 Pain Scale used: Numeric (1 - 10) - Nausea Vomiting Nausea Vomiting: Not Present - Hydration Hydration: Ice chips, Glasgow catheter - Discharge PostOp Status: Transfer Patient to floor
[2018-05-16] MEDS: Gabapentin 300 MG CAPSULE PO SCH (20:37)
[2018-05-16] MEDS: Latanoprost 2.5 ML BOTTLE BOTH EYES SCH (20:38)
[2018-05-16] MEDS: Dextrose Gel 15 GM/37.5 ML TUBE PO PRN (21:42)
[2018-05-17] MEDS: 0.9 % Sodium Chloride 500 ML IVC SCH (00:08)
[2018-05-17] MEDS: Ipratropium/Albuterol Neb 3 ML IH SCH ×5 (03:38→19:41)
[2018-05-17 05:29] LABS: Basophils % 0.1 %; Hematocrit 29.1 % (35.3-44.9); Hemoglobin 8.5 g/dL (11.5-15.4); Lymphocytes # 1.7 K/mcL (0.6-4.6); Lymphocytes % 15.4 %; Mean Corpuscular HGB Conc 29.2 g/dL (31.6-35.5); Mean Corpuscular Hemoglobin 29.7 pg (28.0-33.3); Mean Corpuscular Volume 101.7 fL (83.0-100.0); Mean Platelet Volume 12.4 fL (9.4-12.4); Monocytes # 1.4 K/mcL (0.0-1.3); Monocytes % 12.3 %; Platelet Count 191 K/mcL (140-400); Red Blood Count 2.86 M/mcL (3.82-4.97); Red Cell Distribution Width 13.8 % (11.5-14.5); Segmented Neutrophils % 71.2 %
[2018-05-17 05:49] LABS: Calcium 8.3 mg/dL (8.6-10.3); Magnesium 2.4 mg/dL (1.6-2.6)
[2018-05-17] MEDS: Ascorbic Acid 500 MG TABLET PO SCH (05:50)
[2018-05-17] MEDS: Diltiazem CD (24hr) 120 MG CAPSULE PO SCH (05:50)
[2018-05-17] MEDS: Iron Polysaccharide Complex 150 MG CAPSULE PO SCH (05:50)
[2018-05-17 06:15] LABS: Alpha 2 Globulin (PEP) 1.17 g/dL (0.48-1.05); Beta Globulin (PEP) 0.84 g/dL (0.48-1.10)
[2018-05-17 08:23] LABS: IFE Reflexed NOT DONE
[2018-05-17] MEDS: Insulin LISPRO 300 UNITS/3 ML VIAL SQ SCH ×7 (08:51→21:32)
[2018-05-17] MEDS: Insulin DETEMIR 100 UNIT/ML X5UNITS SQ SCH ×2 (08:52→21:33)
[2018-05-17] MEDS: Levofloxacin 750 MG/150 ML 750 MG/150 ML BAG IVPB SCH (08:53)
[2018-05-17] MEDS: Isosorbide MONOnitrate (24 HR) 30 MG TAB.ER.24H PO SCH (08:54)
[2018-05-17] MEDS: *HR* SitaGLIPtin 25 MG TABLET PO SCH (08:54)
--- NOTE | 2018-05-17 09:26 | Internal Med Progress Note ---
Hospitalist Progress Note - Encounter Date of Encounter: 05/17/18 Time of Encounter: 09:15 - Subjective Interval History: Patient seen and examined at bedside. Patient in no overnight events. Patient had EGD and colonoscopy yesterday, EGD revealed gastritis and erosive esophagitis and colonoscopy did not reveal any active bleeding only significant for hemorrhoids. Patient states that she feels well overall and states her breathing is at baseline. Patient states that she is not having any nausea or vomiting or abdominal pain. Patient denies any chest pain. She has been afebrile. She has had A. fib with RVR and a.m. medication was given earlier today. - Exam Vitals: Temp Pulse Resp BP Pulse Ox 98.0 F 119 20 117/70 98 05/17/18 07:24 05/17/18 07:24 05/17/18 07:24 05/17/18 07:24 05/17/18 07:24 Exam: Constitutional: No acute distress, Alert Psych: AAO x 3 HEENT: NCAT, EOMI Neck: supple Cardio: Irregularly irregular and tachycardic, +s1s2, no murmurs/rubs/gallops Resp: Diminished breath sounds throughout with expiratory wheezes Abd: soft, non tender/non distended, positive bowel sounds, no gaurding/reboud/ ridgitity, obese Extremities: no clubbing/cyanosis; 2-3+ pitting edema bilateral lower extremities Neuro: no focal deficits appreciated - Assessment and Plan (1) Acute on chronic respiratory failure with hypoxia and hypercapnia Current Visit: Yes Status: Acute Assessment and Plan: 62-year-old female with past medical history of severe COPD, phrenic nerve palsy , diastolic congestive heart failure, atrial fibrillation, and a diabetes presented with generalized weakness/confusion/frequent falls. ABG at ED revealed worsening hypoxia and the hypercapnia. - Patient reported inconsistent use of BiPAP at home, she was placed back on BiPAP with improvement of mental status, and lab values. We will continue BiPAP when necessary and daily at bedtime patient has BiPAP at home - CT revealed possible pneumonia, patient was started on IV Levaquin. - Continue IV antibiotics for now and transition to by mouth at discharge - Blood cultures negative to date - Continue medication for COPD including bronchodilators. finished 3-day course of oral steroid . good Air movement today - Patient states that she feels like her breathing is at baseline now. (2) MARIFER (acute kidney injury) Current Visit: Yes Status: Acute Assessment and Plan: Patient was started on losartan recently, she also was on Lasix and Aldactone at home. Clinical picture and the lab values suggested volume depletion related acute kidney injury. Creatinine improved by IV fluid. - No need for further IV fluids - Continue to hold losartan. BP well controlled. - Avoid nephrotoxic medications - Renal following. (3) Anemia Current Visit: Yes Status: Acute Assessment and Plan: Patient has history of atrial fibrillation and on Xatelto. has chronic anemia with Hgb baseline 9-10. had similar episodic low Hgb in January, when GI was consulted and EGD and C-scope were essentially normal. She was restarted on Xarelto. - Hgb was 8.5 on admission and dropped to 7.5 and now up to 8.5 - Workup revealed low serum iron likely due to chronic disease, normal B12 and folate, Low reticulocyte count and index, suggests bone mclain insufficiency. - GI was consulted who performed EGD and colonoscopy yesterday EGD revealed chronic gastritis and reflux esophagitis, colonoscopy revealed internal hemorrhoids and no active bleeding - continue to monitor H/H, type and screen, transfuse if Hgb <7.0. - Hold Xarelto for now and likely restart tomorrow if hemoglobin stable in a.m. the patient has subsequent drop in hemoglobin as an outpatient will likely not be a candidate for anticoagulation in the future (4) Diabetes Current Visit: Yes Status: Chronic Assessment and Plan: BG elevated due to oral steroid previously now better controlled Continue current regimen and monitor blood glucose (5) Diastolic CHF Current Visit: Yes Status: Chronic Assessment and Plan: -History of diastolic heart failure, recent echo on 05/02/2018 revealed preserved ejection fraction, severe dilated LA, small amount of pericardial effusion without tamponade. -Patient seems volume depleted on physical exam on admission, now euvolemic, no need for further IV fluids -Patient has chronic compensated diastolic congestive heart failure -Continue to hold losartan 2/2 marifer (6) Afib Current Visit: Yes Status: Chronic Assessment and Plan: Patient with chronic atrial fibrillation, patient had episode of atrial fibrillation with rapid ventricular response this a.m. -Patient's Cardizem 120 mg controlled release was administered early -We will increase Cardizem to 120 mg daily and supplement with 30 mg immediate release until tomorrow's dose of 180mg -Xarelto continues to be held, will likely restart tomorrow evening and patient will need to have her hemoglobin checked as an outpatient if it continues to fall will likely not be a candidate for further anticoagulation (7) COPD exacerbation Current Visit: Yes Status: Acute Assessment and Plan: Air movement improved with improved wheezing. -Off steroids and doing fine -Continue BiPAP when necessary and daily at bedtime, patient has BiPAP at home for use (8) Phrenic nerve palsy Current Visit: Yes Status: Chronic Assessment and Plan: Continue BiPAP as needed and daily at bedtime DVT Prophylaxis: Start heparin subcutaneous and discontinue tomorrow prior to Xarelto dose; no evidence of active bleeding - Time Spent with Patient Total time spent is greater than 50% in coordination of care (as documented) at patient's floor/unit and/or counseling patient: Internal Medicine: Result - Labs CBC & Chem 7: 05/17/18 04:27 05/17/18 04:27 Labs: Short CBC 05/17/18 Range/Units 04:27 WBC 11.2 H (4.3-11.1) K/mcL Hgb 8.5 L (11.5-15.4) g/dL Hct 29.1 L (35.3-44.9) % Plt Count 191 (140-400) K/mcL Neutrophils # 8.0 (1.6-8.9) K/mcL BMP 05/17/18 04:27 Sodium 143 Potassium 4.0 Chloride 99 Carbon Dioxide 39 H BUN 58 H Creatinine 1.17 Glucose 81 Calcium 8.3 L - ABG Interpretation ABG results: ABG ABG pH 7.29 pH Units (7.32-7.45) L 05/13/18 11:27 ABG pCO2 90 mmHg (35-45) H* D 05/13/18 11:27 ABG pO2 56 mmHg (85-104) L D 05/13/18 11:27 ABG O2 Saturation 83 % (95-98) L 05/13/18 11:27 PT/INR, D-dimer PT 27.2 Seconds (9.4-12.1) H 05/13/18 09:40 Consult Discharge Plan - Plan Referrals: Aayush Chase MD [Primary Care Provider] - (3) Anemia Qualifiers: Anemia type: unspecified type Qualified Code(s): D64.9 - Anemia, unspecified (4) Diabetes Qualifiers: Diabetes mellitus type: type 2 Diabetes mellitus intermediate project manager insulin use: without mcfp use Diabetes mellitus complication status: with kidney complications Diabetes mellitus complication detail: with chronic kidney disease Chronic kidney disease stage: stage 3 (moderate) Qualified Code(s): E11.22 - Type 2 diabetes mellitus with diabetic chronic kidney disease; N18.3 - Chronic kidney disease, stage 3 (moderate) (5) Diastolic CHF Qualifiers: Heart failure chronicity: chronic Qualified Code(s): I50.32 - Chronic diastolic (congestive) heart failure (6) Afib Qualifiers: Atrial fibrillation type: chronic Qualified Code(s): I48.2 - Chronic atrial fibrillation
--- NOTE | 2018-05-17 09:27 | Nephrology Progress Note ---
Date of Encounter: 05/17/18 Time of Encounter: 09:00 - Assessment and Plan (1) MARIFER (acute kidney injury) Current Visit: Yes Status: Acute Resolved and she is now back to her baseline. Continue to follow a renal protective strategy as able. Will sign-off at this point. Please feel free to call or page me with any questions. She already has a follow up appt with me in my Nephro clinic in about 4 weeks. Thank you. (2) CKD (chronic kidney disease), stage III Current Visit: Yes Status: Chronic (3) Hyperkalemia Current Visit: Yes Status: Acute (4) Anemia Current Visit: Yes Status: Acute Qualifiers: Anemia type: iron deficiency Iron deficiency anemia type: chronic blood loss Qualified Code(s): 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 (chronic) (5) Hypertension Current Visit: Yes Status: Chronic Qualifiers: Hypertension type: essential hypertension Qualified Code(s): I10 - Essential (primary) hypertension Subjective Principal diagnosis: MARIFER on CKD Interval history: Pt was s/e earlier today. She did not affirm N/V/D or other uremic symptoms. She reported that her LE edema is the "same" as normal and that her breathing is better too. Objective - Vital Signs Vital signs: Vital Signs Temp Pulse Resp BP Pulse Ox 05/17/18 07:24 98.0 F 119 20 117/70 98 05/17/18 04:17 97.6 F 118 17 117/57 94 05/17/18 03:38 19 94 05/17/18 00:31 97.1 F L 124 17 109/57 96 05/16/18 23:02 19 94 05/16/18 20:21 19 95 05/16/18 20:14 97.5 F L 105 17 100/58 95 05/16/18 16:36 97.6 F 102 19 130/75 94 05/16/18 16:08 98.1 F 87 18 116/63 98 05/16/18 15:55 96 18 119/89 98 05/16/18 15:45 96 16 124/72 98 05/16/18 15:37 94 05/16/18 15:35 98.0 F 84 16 124/66 99 05/16/18 15:25 86 16 124/69 99 05/16/18 15:15 96 16 123/75 98 05/16/18 15:05 98.1 F 95 16 130/102 97 05/16/18 13:40 104 05/16/18 13:10 97.8 F 119 22 140/68 99 05/16/18 11:34 16 98 05/16/18 11:28 97.6 F 103 18 119/68 96 Intake and Output 05/16/18 05/17/18 05/17/18 23:59 07:59 15:59 Intake Total 100 / 100 520 / 520 Output Total 500 / 500 Balance 100 / 100 -500 / -500 520 / 520 Intake: Oral 100 / 100 520 / 520 Output: Catheter 500 / 500 Other: Meal 1 pk meg crackers 2 things of orange juice Percent of Meal Consumed 40% Stool Size Copious Small Stool Consistency loose liquid liquid Stool Color Brown Brown Green Black # Bowel Movements 1 1 Weight 118.2 kg Blood Glucose* 74 65 117 Patient Weight 05/17/18 23:59 Weight 118.2 kg - General Appearance General appearance: Present: well-developed, well-nourished, appears started age , obese EENT: Present: ATNC, PERRL, mucous membranes moist Neck: Present: supple Respiratory: Present: wheezing Cardiology: Present: edema (1-2+ pretibial pitting LE edema b/l), regular rate, normal S1, normal S2 Gastrointestinal: Present: normoactive bowel sounds, no tenderness, obese Integumentary: Present: no rash, warm and dry Neurologic: Present: no focal deficit, no asterixis, alert and oriented x3 Musculoskeletal: Present: no deformities, no erythema, no cyanosis Psychiatric: Present: mood/affect appropriate, cooperative - Lab 05/17/18 04:27 05/17/18 04:27 Most recent lab results ABG pH 7.29 pH Units (7.32-7.45) L 05/13/18 11:27 ABG pCO2 90 mmHg (35-45) H* D 05/13/18 11:27 ABG pO2 56 mmHg (85-104) L D 05/13/18 11:27 ABG HCO3 44 mEq/L (21-27) H 05/13/18 11:27 ABG O2 Saturation 83 % (95-98) L 05/13/18 11:27 Calcium 8.3 mg/dL (8.6-10.3) L 05/17/18 04:27 Phosphorus 6.0 mg/dL (2.7-4.5) H 05/13/18 09:40 Magnesium 2.4 mg/dL (1.6-2.6) 05/17/18 04:27 Urine Sodium 11.0 mEq/L 05/15/18 08:01 Consult Discharge Plan - Plan Referrals: Aayush Chase MD [Primary Care Provider] -
--- NOTE | 2018-05-17 17:15 | Electrocardiograph Report ---
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
[2018-05-17] MEDS: Gabapentin 300 MG CAPSULE PO SCH (21:31)
[2018-05-17] MEDS: *HR* Heparin 5,000 UNIT/ML VIAL SQ SCH (21:32)
[2018-05-17] MEDS: Latanoprost 2.5 ML BOTTLE BOTH EYES SCH (21:35)
[2018-05-18] MEDS: Ascorbic Acid 500 MG TABLET PO SCH (06:03)
[2018-05-18] MEDS: Iron Polysaccharide Complex 150 MG CAPSULE PO SCH (06:03)
[2018-05-18] MEDS: *HR* Heparin 5,000 UNIT/ML VIAL SQ SCH (06:03)
--- NOTE | 2018-05-18 08:56 | Discharge Summary ---
- NOTES TO OUTPATIENT PROVIDER Notes to Outpatient Provider: Patient had anemia and was evaluated by GI with no etiology of blood loss found. Hemoglobin was stable and patient will be restarted on her xarelto. Patient will have order for CBC to be checked 2017. Informed patient that if her hemoglobin drops again she will likely not be a candidate to continue Xarelto. She understands and wishes to continue Xarelto this time. 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 Orders not resulted at time of discharge: Pending orders 05/15/18 14:25 Hemochromatosis 3 Mutatations Routine Date of Encounter: 05/18/18 Time of Encounter: 08:47 - Discharge Diagnosis (1) Acute on chronic respiratory failure with hypoxia and hypercapnia Priority: Primary Status: Acute (2) MARIFER (acute kidney injury) Priority: Secondary Status: Acute (3) Anemia Priority: Secondary Status: Acute Qualifiers: Anemia type: unspecified type Qualified Code(s): D64.9 - Anemia, unspecified (4) Diabetes Priority: Secondary Status: Chronic Qualifiers: Diabetes mellitus type: type 2 Diabetes mellitus fdc insulin use: without rodent exterminator use Diabetes mellitus complication status: with kidney complications Diabetes mellitus complication detail: with chronic kidney disease Chronic kidney disease stage: stage 3 (moderate) Qualified Code(s): E11.22 - Type 2 diabetes mellitus with diabetic chronic kidney disease; N18.3 - Chronic kidney disease, stage 3 (moderate) (5) Diastolic CHF Priority: Secondary Status: Chronic Qualifiers: Heart failure chronicity: chronic Qualified Code(s): I50.32 - Chronic diastolic (congestive) heart failure (6) Afib Priority: Secondary Status: Chronic Qualifiers: Atrial fibrillation type: chronic Qualified Code(s): I48.2 - Chronic atrial fibrillation (7) COPD exacerbation Priority: Secondary Status: Acute (8) 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 Hospital course: Ms. Cox is a 62 year old female who presented to the emergency department with chief complaint of shortness of breath from home hospice. Patient was found to have acute on chronic respiratory failure secondary to COPD exacerbation as well as possible pneumonia on imaging. Patient was put on IV antibiotics and steroids steroids were discontinued within the hospital due to improvement of the patient's respiratory status. Patient completed 6 days of Levaquin and will be sent home with 1 additional day of by mouth Levaquin. Patient was is on Xarelto for atrial fibrillation however had anemia throughout her stay and was evaluated by gastroenterology who performed EGD and colonoscopy which did not were unremarkable for any source of bleeding. The patient's hemoglobin was stable will be discharged with a hemoglobin of 8.5. Patient will resume Xarelto this evening. I discussed the risk of continuing Xarelto in the patient wishes to continue this time she will be given an order for CBC to be drawn on TuesdayMay 27. Patient was informed that if she develops worsening of her anemia she will likely be taken off Xarelto not be a candidate for its use in the future. She understands. Patient used BiPAP intermittently and at the evening for phrenic nerve palsy. Patient has BiPAP at home which she will continue to use. Patient also developed atrial fibrillation with rapid ventricular response which is chronic. The patient's Cardizem dose was increased to 180 mg daily. Patient had adequate control of her heart rate prior to discharge. Patient also had acute kidney injury and was followed by nephrology the patient presented to the hospital on losartan and Lasix and Aldactone; creatinine was 3.19 on admission and kidney injury resolved and creatinine was 1.17 at discharge. Patient will be discharged holding Lasix and Aldactone and losartan until follow-up with primary care physician or nephrology. Patient has appointment with nephrology in 4 weeks. Patient was instructed to see her primary care physician within 3-5 days. Patient is agreeable to discharge questions were answered. Patient is stable for discharge on 05/18/18. Discharge discussed with: patient, nurse - Time Spent with Patient Total time spent providing and/or coordinating discharge services: Greater than 30 minutes - Discharge Medications Prescriptions: Diltiazem CD (24hr) [Cardizem CD] 180 mg PO DAILY #30 cap.er.24h levoFLOXacin [Levaquin] 750 mg PO DAILY 1 Days #1 tablet Home Medications: Latanoprost [Xalatan] 1 drop BOTH EYES HS 04/06/16 [History] SitaGLIPtin [Januvia] 100 mg PO DAILY 04/06/16 [History] Albuterol Sulfate [Albuterol Inhaler] 2 puff IH Q4H PRN 04/14/17 [History] Citalopram Hydrobromide [Citalopram HBr] 40 mg PO HS 04/14/17 [History] Docusate [Colace] 100 mg PO DAILY 04/14/17 [History] Gabapentin [Neurontin] 600 mg PO HS 04/14/17 [History] Brimonidine 0.2% [Alphagan] 1 drop BOTH EYES AD 12/19/17 [History] Propylene Glycol/Peg 400 [Systane Ultra 0.4-0.3% Eye Drp] 1 drop OP QID [History] Ipratropium/Albuterol Neb [Duoneb] 3 ml IH [id number] PRN inhsol 01/18/18 [Rx] Iron Polysaccharide Complex [Ferrex 150] 150 mg PO DAILY capsule 01/18/18 [Rx] Ascorbic Acid [Vitamin C] 500 mg PO 0630 #30 tablet 01/25/18 [Rx] Isosorbide MONOnitrate (24 HR) [Imdur] 30 mg PO DAILY #30 tab.er.24h 01/25/18 [ Rx] Esomeprazole Magnesium [Nexium] 40 mg PO DAILY 03/29/18 [History] Ibandronate Sodium [Boniva] 150 mg PO QMONTH 03/29/18 [History] Atorvastatin [Lipitor] 20 mg PO HS #30 tablet 05/03/18 [Rx] Insulin DETEMIR [Levemir Flextouch] 40 unit SQ HS #12 insuln.pen 05/03/18 [Rx] Rivaroxaban [Xarelto] 20 mg PO 1700 #30 tablet 05/03/18 [Rx] Diltiazem CD (24hr) [Cardizem CD] 180 mg PO DAILY #30 cap.er.24h 05/18/18 [Rx] levoFLOXacin [Levaquin] 750 mg PO DAILY 1 Days #1 tablet 05/18/18 [Rx] Allergies/Adverse Reactions: 3 Allergy/AdvReac Type Severity Reaction Status Date / Time hydrocodone [From Vicodin] AdvReac Nausea Verified 05/13/18 10:46 Hydromorphone [From Dilaudid] AdvReac Nausea Verified 05/13/18 10:46 Date of admission: 05/13/18 16:03 Primary care physician: Aayush Cahse MD Consults: 05/15/18 09:21 Consult to Gastroenterology [CONS] Routine Consulting Provider: Gastroenterology Michelle Reason for Consult: GI bleed Call Completed: Yes - Constitutional Vitals: Temp Pulse Resp BP Pulse Ox 97.9 F 103 20 116/62 97 05/18/18 07:03 05/18/18 07:03 05/18/18 07:03 05/18/18 07:03 05/18/18 07:03 General appearance: Present: A&O X 3, answers questions appropriately Exam: Constitutional: No acute distress, Alert Psych: AAO x 3 HEENT: NCAT, EOMI Neck: supple Cardio: Irregularly irregular with controlled rate today, +s1s2 Resp: Diminished breath sounds throughout however wheezes are resolved Abd: soft, non tender/non distended, positive bowel sounds, no gaurding/reboud/ ridgitity, obese Extremities: no clubbing/cyanosis; 2-3+ pitting edema bilateral lower extremities Neuro: no focal deficits appreciated - Patient Status Disposition: Home Health Service Condition: Fair Functional capacity at discharge: uses cane/walker Overall status at discharge: patient is progressing back to baseline - Discharge Instructions Follow Up With: Aayush Chase MD [Primary Care Provider] - - Diet and Activity Activity: increase activity as tolerated Diet: advance to your usual diet, diabetic diet, low salt diet
[2018-05-18] MEDS ORDERED: levoFLOXacin 750 MG TABLET PO SCH (09:00)
[2018-05-18] MEDS ORDERED: Diltiazem CD (24hr) 180 MG CAPSULE PO SCH (09:00)
--- NOTE | 2018-05-18 09:07 | Physician Discharge Referral ---
Home Health/Hosp Referral Info Transfer to: Home Health, Hospice Provider in Charge Post Discharge: PCP (nursing aids and resumption of hospice) - Diagnosis (1) Acute on chronic respiratory failure with hypoxia and hypercapnia Status: Acute (2) MARIFER (acute kidney injury) Status: Acute (3) Anemia Status: Acute (4) Diabetes Status: Chronic (5) Diastolic CHF Status: Chronic (6) Afib Status: Chronic (7) COPD exacerbation Status: Acute (8) Phrenic nerve palsy Status: Chronic - Respiratory Orders Smoking Cessation: Smoking cessation has been advised. For more information, call the [place] Tobacco Quit Line at 2-713-DNTF-NOW. - Transfer Medications Prescriptions: Diltiazem CD (24hr) [Cardizem CD] 180 mg PO DAILY #30 cap.er.24h levoFLOXacin [Levaquin] 750 mg PO DAILY 1 Days #1 tablet Home Medications: Latanoprost [Xalatan] 1 drop BOTH EYES HS 04/06/16 [History] SitaGLIPtin [Januvia] 100 mg PO DAILY 04/06/16 [History] Albuterol Sulfate [Albuterol Inhaler] 2 puff IH Q4H PRN 04/14/17 [History] Citalopram Hydrobromide [Citalopram HBr] 40 mg PO HS 04/14/17 [History] Docusate [Colace] 100 mg PO DAILY 04/14/17 [History] Gabapentin [Neurontin] 600 mg PO HS 04/14/17 [History] Brimonidine 0.2% [Alphagan] 1 drop BOTH EYES AD 12/19/17 [History] Propylene Glycol/Peg 400 [Systane Ultra 0.4-0.3% Eye Drp] 1 drop OP QID [History] Ipratropium/Albuterol Neb [Duoneb] 3 ml IH [id number] PRN inhsol 01/18/18 [Rx] Iron Polysaccharide Complex [Ferrex 150] 150 mg PO DAILY capsule 01/18/18 [Rx] Ascorbic Acid [Vitamin C] 500 mg PO 0630 #30 tablet 01/25/18 [Rx] Isosorbide MONOnitrate (24 HR) [Imdur] 30 mg PO DAILY #30 tab.er.24h 01/25/18 [ Rx] Esomeprazole Magnesium [Nexium] 40 mg PO DAILY 03/29/18 [History] Ibandronate Sodium [Boniva] 150 mg PO QMONTH 03/29/18 [History] Atorvastatin [Lipitor] 20 mg PO HS #30 tablet 05/03/18 [Rx] Insulin DETEMIR [Levemir Flextouch] 40 unit SQ HS #12 insuln.pen 05/03/18 [Rx] Rivaroxaban [Xarelto] 20 mg PO 1700 #30 tablet 05/03/18 [Rx] Diltiazem CD (24hr) [Cardizem CD] 180 mg PO DAILY #30 cap.er.24h 05/18/18 [Rx] levoFLOXacin [Levaquin] 750 mg PO DAILY 1 Days #1 tablet 05/18/18 [Rx] Allergies/Adverse Reactions: 3 Allergy/AdvReac Type Severity Reaction Status Date / Time hydrocodone [From Vicodin] AdvReac Nausea Verified 05/13/18 10:46 Hydromorphone [From Dilaudid] AdvReac Nausea Verified 05/13/18 10:46 Certification: Further, I certify that my clinical findings support that this patient is homebound (i.e. absences from home require considerable and taxing effort and are for medical reasons or jain services or infrequently or short duration when for other reasons) because: Homebound Reason: Patient requires assistance of a person or device to safely leave home, Severity of cardiac or pulmonary status limits activity tolerance Attestation: My signature below is to certify that this patient is under my care and that I, or nurse practitioner, or a physician's administrative support assistant working with me, has a face-to -face encounter with this patient.
[2018-05-18] MEDS: Insulin LISPRO 300 UNITS/3 ML VIAL SQ SCH ×2 (10:39)
[2018-05-18] MEDS: Isosorbide MONOnitrate (24 HR) 30 MG TAB.ER.24H PO SCH (10:40)
[2018-05-18] MEDS: *HR* SitaGLIPtin 25 MG TABLET PO SCH (10:40)
[2018-05-18 11:17] VITALS: BP 114/60
[2018-05-19 19:30] LABS: C282Y Hemochromatosis Mutation HETEROZYGOUS; H63D Hemochromatosis Mutation HETEROZYGOUS; HFE Specimen Type WHOLE BLOOD; S65C Hemochromatosis Mutation NEGATIVE
== END 2018-05-18 12:19 | disposition home health service (06) | DRG 190 ==
LOC: EMEROO 09:28 → 2ANU 09:28 → SUATTDRO 16:03
PROVIDERS: ADMIT Internal Medicine; ATTEND Hospitalist

== ENCOUNTER 2018-05-19 11:30 | Observation (INO) ==
--- NOTE | 2018-05-19 11:32 | Emergency Department Note ---
Disposition Clinical Impression: Acute exacerbation of chronic obstructive airways disease, SOB (shortness of breath), Morbid obesity Disposition: Admitted As Inpatient Condition: Fair General Adult HPI - General Chief complaint: ED Shortness of Breath/Dyspnea Stated complaint: Difficulty Breathing Time Seen by Provider: 05/19/18 11:31 - Related Data Home Medications Medication Instructions Recorded Confirmed Latanoprost [Xalatan] 1 drop BOTH EYES HS 04/06/16 05/19/18 SitaGLIPtin [Januvia] 100 mg PO DAILY 04/06/16 05/19/18 Albuterol Sulfate [Albuterol 2 puff IH Q4H PRN 04/14/17 05/19/18 Inhaler] Citalopram Hydrobromide 40 mg PO HS 04/14/17 05/19/18 [Citalopram HBr] Docusate [Colace] 100 mg PO DAILY 04/14/17 05/19/18 Gabapentin [Neurontin] 600 mg PO HS 04/14/17 05/19/18 Brimonidine 0.2% [Alphagan] 1 drop BOTH EYES BID 12/19/17 05/19/18 Propylene Glycol/Peg 400 [Systane 1 drop OP QID 12/19/17 05/19/18 Ultra 0.4-0.3% Eye Drp] Esomeprazole Magnesium [Nexium] 40 mg PO DAILY 03/29/18 05/19/18 Ibandronate Sodium [Boniva] 150 mg PO QMONTH 03/29/18 05/19/18 Previous Rx's Medication Instructions Recorded Ipratropium/Albuterol Neb [Duoneb] 3 ml IH [id number] PRN inhsol 01/18/18 Iron Polysaccharide Complex 150 mg PO DAILY capsule 01/18/18 [Ferrex 150] Ascorbic Acid [Vitamin C] 500 mg PO 0630 #30 tablet 01/25/18 Isosorbide MONOnitrate (24 HR) 30 mg PO DAILY #30 tab.er.24h 01/25/18 [Imdur] Atorvastatin [Lipitor] 20 mg PO HS #30 tablet 05/03/18 Insulin DETEMIR [Levemir Flextouch] 40 unit SQ HS #12 insuln.pen 05/03/18 Rivaroxaban [Xarelto] 20 mg PO 1700 #30 tablet 05/03/18 Diltiazem CD (24hr) [Cardizem CD] 180 mg PO DAILY #30 cap.er.24h 05/18/18 levoFLOXacin [Levaquin] 750 mg PO DAILY 1 Days #1 tablet 05/18/18 Allergies Allergy/AdvReac Type Severity Reaction Status Date / Time hydrocodone [From Vicodin] AdvReac Nausea Verified 05/13/18 10:46 Hydromorphone [From Dilaudid] AdvReac Nausea Verified 05/13/18 10:46 Past Medical History - Past Medical History Medical history: Reports: CHF, COPD, diabetes, fibromyalgia, hyperlipidemia, hypertension Surgical history: Reports: no surgical history Psychiatric history: Reports: anxiety, depression - Social History Smoking Status: Never smoker Smokeless Tobacco Status: No Alcohol use: Reports: none Drug use: Reports: none Course Vital Signs Temperature 99.3 F 05/19/18 11:31 Pulse Rate 100 05/19/18 11:31 Respiratory Rate 22 05/19/18 11:31 Blood Pressure 144/117 05/19/18 11:31 O2 Sat by Pulse Oximetry 97 05/19/18 11:31 Temperature 97.6 F 05/20/18 16:21 Pulse Rate 64 05/20/18 16:21 Respiratory Rate 17 05/20/18 16:21 Blood Pressure 123/91 05/20/18 16:21 O2 Sat by Pulse Oximetry 97 05/20/18 16:21 Oxygen Delivery Oxygen Delivery Nasal Cannula Medical Decision Making - Medical Records Medical records reviewed: Yes I reviewed the patient's medical records. - Lab Data Lab results reviewed: Yes I reviewed the patient's lab results. Result diagrams: 05/20/18 02:53 05/20/18 02:53 Lab Results 05/19/18 05/19/18 05/19/18 Range/Units 11:50 11:55 11:55 WBC 9.7 (4.3-11.1) K/mcL RBC 3.07 L (3.82-4.97) M/mcL Hgb 9.0 L (11.5-15.4) g/dL Hct 30.5 L (35.3-44.9) % MCV 99.3 (83.0-100.0) fL MCH 29.3 (28.0-33.3) pg MCHC 29.5 L (31.6-35.5) g/dL RDW 13.4 (11.5-14.5) % Plt Count 174 (140-400) K/mcL MPV 11.9 (9.4-12.4) fL Immature Gran % 0.8 (0-4) % Seg Neutrophils % 84.9 % Lymphocytes % 8.4 % Monocytes % 5.8 % Eosinophils % 0.0 % Basophils % 0.1 % Neutrophils # 8.3 (1.6-8.9) K/mcL Lymphocytes # 0.8 (0.6-4.6) K/mcL Monocytes # 0.6 (0.0-1.3) K/mcL Eosinophils # 0.0 (0.0-0.6) K/mcL Basophils # 0.0 (0.0-0.2) K/mcL VBG pH (7.32-7.42) pH Units VBG pCO2 (41-51) mmHg VBG pO2 (25-50) mmHg VBG HCO3 (21-27) mEq/L Sodium 142 (136-145) mEq/L Potassium 4.6 (3.5-5.1) mEq/L Chloride 98 (98-107) mEq/L Carbon Dioxide 33 H (23-29) mEq/L BUN 29 H (8-23) mg/dL Creatinine 0.93 (0.60-1.20) mg/dL Est GFR ( Amer) > 60 (> 60) Est GFR (Non-Af Amer) > 60 (> 60) BUN/Creatinine Ratio 31 H (6-26) Glucose 195 H (70-105) mg/dL Calculated Osmolality 305 H (280-300) Lactic Acid 0.7 (0.5-2.2) mmol/L Calcium 9.4 (8.6-10.3) mg/dL Troponin I < 0.03 (< 0.04) ng/mL B-Natriuretic Peptide (Less than 100) pg/mL 05/19/18 05/19/18 Range/Units 11:55 12:09 WBC (4.3-11.1) K/mcL RBC (3.82-4.97) M/mcL Hgb (11.5-15.4) g/dL Hct (35.3-44.9) % MCV (83.0-100.0) fL MCH (28.0-33.3) pg MCHC (31.6-35.5) g/dL RDW (11.5-14.5) % Plt Count (140-400) K/mcL MPV (9.4-12.4) fL Immature Gran % (0-4) % Seg Neutrophils % % Lymphocytes % % Monocytes % % Eosinophils % % Basophils % % Neutrophils # (1.6-8.9) K/mcL Lymphocytes # (0.6-4.6) K/mcL Monocytes # (0.0-1.3) K/mcL Eosinophils # (0.0-0.6) K/mcL Basophils # (0.0-0.2) K/mcL VBG pH 7.44 H (7.32-7.42) pH Units VBG pCO2 57 H (41-51) mmHg VBG pO2 136 H (25-50) mmHg VBG HCO3 39 H (21-27) mEq/L Sodium (136-145) mEq/L Potassium (3.5-5.1) mEq/L Chloride (98-107) mEq/L Carbon Dioxide (23-29) mEq/L BUN (8-23) mg/dL Creatinine (0.60-1.20) mg/dL Est GFR ( Amer) (> 60) Est GFR (Non-Af Amer) (> 60) BUN/Creatinine Ratio (6-26) Glucose (70-105) mg/dL Calculated Osmolality (280-300) Lactic Acid (0.5-2.2) mmol/L Calcium (8.6-10.3) mg/dL Troponin I (< 0.04) ng/mL B-Natriuretic Peptide 770 H (Less than 100) pg/mL - Radiology Data Radiology results reviewed: Yes I reviewed the patient's radiology results. - EKG Data EKG #2 EKG attestation: Yes I reviewed and interpreted this EKG. EKG results narrative: Irregularly irregular rhythm rate 128 QRS 85 QT/QTc 133/[address] segment elevation. ST segment flattening in the lateral leads. Study compared to previous dated 05/19/18 at 11:39 Critical Care Time Critical Care Time: Yes Total Critical Care Time: 30 Attestation: The high probability of a clinically significant, sudden or life threatening deterioration of the [] system(s) required my full and direct attention, intervention and personal management. The aggregate critical care time was [] minutes. This time is in addition to time spent performing reported procedures but includes the following: [] Data Review and interpretation [] Patient assessment and monitoring of vital signs [] Documentation [] Medication orders and management Attestation Statement - Attestation Attestation: I examined this patient and my medical decision-making was reviewed with the Resident Physician. I agree with the documented findings, disposition and treatment plan as described except to the extent set forth below. [id number] time provided Patient arrives by EMS from home. She was recently discharged from the hospital. She complains of dyspnea. She has lower extremity edema on arrival. She is visibly dyspneic. I evaluated this patient in conjunction with the resident physician Dr. Lind
[2018-05-19] MEDS ORDERED: methylPREDNISolone 125 MG/2 ML VIAL IVP ONE (11:37)
[2018-05-19] MEDS ORDERED: Ipratropium/Albuterol Neb 3 ML IH ONE (11:37)
[2018-05-19 12:12] LABS: VBG HCO3 39 mEq/L (21-27); VBG PCO2 57 mmHg (41-51); VBG PH 7.44 pH Units (7.32-7.42); VBG PO2 136 mmHg (25-50)
[2018-05-19 12:14] LABS: Basophils % 0.1 %; Hematocrit 30.5 % (35.3-44.9); Immature Granulocytes % 0.8 % (0-4); Lymphocytes # 0.8 K/mcL (0.6-4.6); Lymphocytes % 8.4 %; Mean Corpuscular HGB Conc 29.5 g/dL (31.6-35.5); Mean Corpuscular Hemoglobin 29.3 pg (28.0-33.3); Mean Corpuscular Volume 99.3 fL (83.0-100.0); Mean Platelet Volume 11.9 fL (9.4-12.4); Monocytes # 0.6 K/mcL (0.0-1.3); Monocytes % 5.8 %; Neutrophils # 8.3 K/mcL (1.6-8.9); Platelet Count 174 K/mcL (140-400); Red Blood Count 3.07 M/mcL (3.82-4.97); Red Cell Distribution Width 13.4 % (11.5-14.5); Segmented Neutrophils % 84.9 %
[2018-05-19] MEDS ORDERED: Levofloxacin 750 MG/150 ML 750 MG/150 ML BAG IVPB ONE (12:16)
[2018-05-19 12:36] LABS: Troponin I < 0.03 ng/mL (< 0.04)
--- NOTE | 2018-05-19 12:40 | Emergency Department Note ---
Disposition Clinical Impression: Acute exacerbation of chronic obstructive airways disease, SOB (shortness of breath), Morbid obesity Disposition: Admitted As Inpatient Condition: Fair Time of Disposition: 15:05 SOB HPI - General Chief Complaint: ED Shortness of Breath/Dyspnea Stated Complaint: Difficulty Breathing Time Seen by Provider: 05/19/18 11:31 Source: EMS Limitations: no limitations Nursing Notes Reviewed: Yes Vital Signs Reviewed: Yes - History of Present Illness Patient is a 62-year-old female who presents to [facility] ED with a chief complaint of difficulty breathing. States her symptoms worsened after she left the hospital yesterday. She has a history of COPD, CHF. States since leaving the hospital, she has not been able to take any of her medications because she has just felt too poorly to do so. Denies any nausea, vomiting, fever or chills. No chest pain, abdominal pain, problems with urination or bowel movements. Patient called EMS who found her having increased work of breathing at home. Her oxygen saturation was unremarkable at that time. Patient has BiPAP set up at home and states she has been using it. Pt Subjective Complaint: shortness of breath Onset (ago): hour(s) Context: recent illness Severity: moderate Consistency/Duration: gradually worsening Improves with: nothing Worsens with: nothing Known history of: COPD, congestive heart failure Associated symptoms: Denies: chest pain, fever, cough, wheezing, nausea/vomiting , abdominal pain Treatment prior to arrival: none Cough present: No - Related Data Home oxygen amount: CPAP Home Medications Medication Instructions Recorded Confirmed Latanoprost [Xalatan] 1 drop BOTH EYES HS 04/06/16 05/19/18 SitaGLIPtin [Januvia] 100 mg PO DAILY 04/06/16 05/19/18 Albuterol Sulfate [Albuterol 2 puff IH Q4H PRN 04/14/17 05/19/18 Inhaler] Citalopram Hydrobromide 40 mg PO HS 04/14/17 05/19/18 [Citalopram HBr] Docusate [Colace] 100 mg PO DAILY 04/14/17 05/19/18 Gabapentin [Neurontin] 600 mg PO HS 04/14/17 05/19/18 Brimonidine 0.2% [Alphagan] 1 drop BOTH EYES AD 12/19/17 05/19/18 Propylene Glycol/Peg 400 [Systane 1 drop OP QID 12/19/17 05/19/18 Ultra 0.4-0.3% Eye Drp] Esomeprazole Magnesium [Nexium] 40 mg PO DAILY 03/29/18 05/19/18 Ibandronate Sodium [Boniva] 150 mg PO QMONTH 03/29/18 05/19/18 Previous Rx's Medication Instructions Recorded Ipratropium/Albuterol Neb [Duoneb] 3 ml IH [id number] PRN inhsol 01/18/18 Iron Polysaccharide Complex 150 mg PO DAILY capsule 01/18/18 [Ferrex 150] Ascorbic Acid [Vitamin C] 500 mg PO 0630 #30 tablet 01/25/18 Isosorbide MONOnitrate (24 HR) 30 mg PO DAILY #30 tab.er.24h 01/25/18 [Imdur] Atorvastatin [Lipitor] 20 mg PO HS #30 tablet 05/03/18 Insulin DETEMIR [Levemir Flextouch] 40 unit SQ HS #12 insuln.pen 05/03/18 Rivaroxaban [Xarelto] 20 mg PO 1700 #30 tablet 05/03/18 Diltiazem CD (24hr) [Cardizem CD] 180 mg PO DAILY #30 cap.er.24h 05/18/18 levoFLOXacin [Levaquin] 750 mg PO DAILY 1 Days #1 tablet 05/18/18 Allergies Allergy/AdvReac Type Severity Reaction Status Date / Time hydrocodone [From Vicodin] AdvReac Nausea Verified 05/13/18 10:46 Hydromorphone [From Dilaudid] AdvReac Nausea Verified 05/13/18 10:46 All systems ED: reviewed and negative except as stated. Past Medical History - Past Medical History Attestation: Yes The following information was validated with the patient. Source: patient Medical history: Reports: CHF, COPD, diabetes, fibromyalgia, hyperlipidemia, hypertension Surgical history: Reports: no surgical history Psychiatric history: Reports: anxiety, depression - Social History Smoking Status: Never smoker Smokeless Tobacco Status: No Alcohol use: Reports: none Drug use: Reports: none Physical Exam - General Limitations: no limitations General appearance: alert, in no apparent distress - Head Head exam: atraumatic, normocephalic, normal inspection - Eye Eye exam: Present: EOMI - ENT ENT exam: normal exam, normal oropharynx, mucous membranes moist - Neck Neck exam: Present: normal inspection, full ROM, trachea midline - Chest Chest inspection: Present: normal inspection, symmetric chest wall rise - Respiratory Respiratory exam: Present: other (Decreased breath sounds bilaterally) - Cardiovascular Cardiovascular exam: Present: normal rhythm, tachycardia - Abdominal Exam Abdominal exam: Present: soft, Non-Tender. Absent: tenderness, distention, guarding, rebound, rigidity - Extremities Exam Extremities exam: Present: pedal edema (3+) - Neurological Exam Neurological exam: Present: alert - Psychiatric Psychiatric exam: Present: normal affect, normal mood - Skin Skin exam: Present: warm, dry, intact, normal color Course Course Narrative: Patient seen and examined. Shortness of breath. Cardiopulmonary workup initiated. Due to patient's increased work of breathing upon her presentation, we will go ahead and place her on BiPAP. We will give a triple DuoNeb treatment along with Solu-Medrol. Upon looking at her prior echo, she appeared to have a mild pericardial effusion. We did examine this with a bedside ED ultrasound which also showed a mild pericardial effusion. Patient's cardiac activity is maintained without evidence of tamponade - Reevaluation(s) Reevaluation #1: Patient's breath sounds have improved. However due to her inability to take care of herself at home, she states she is willing to be placed at a nursing facility. We will admit for acute on chronic respiratory failure. I discussed with the hospitalist who has accepted patient for admission. Time: 16:02 Vital Signs Temperature 99.3 F 05/19/18 11:31 Pulse Rate 100 05/19/18 11:31 Respiratory Rate 22 05/19/18 11:31 Blood Pressure 144/117 05/19/18 11:31 O2 Sat by Pulse Oximetry 97 05/19/18 11:31 Temperature 99.3 F 05/19/18 11:31 Pulse Rate 120 05/19/18 14:01 Respiratory Rate 23 05/19/18 15:01 Blood Pressure 119/100 05/19/18 15:01 O2 Sat by Pulse Oximetry 95 05/19/18 14:01 Oxygen Delivery Oxygen Delivery Nasal Cannula Shortness of Breath/Dyspnea - Medical Records Medical records reviewed: Yes I reviewed the patient's medical records. - Lab Data Lab results reviewed: Yes I reviewed the patient's lab results. Result diagrams: 05/19/18 11:55 05/19/18 11:55 Lab Results 05/19/18 05/19/18 05/19/18 Range/Units 11:50 11:55 11:55 WBC 9.7 (4.3-11.1) K/mcL RBC 3.07 L (3.82-4.97) M/mcL Hgb 9.0 L (11.5-15.4) g/dL Hct 30.5 L (35.3-44.9) % MCV 99.3 (83.0-100.0) fL MCH 29.3 (28.0-33.3) pg MCHC 29.5 L (31.6-35.5) g/dL RDW 13.4 (11.5-14.5) % Plt Count 174 (140-400) K/mcL MPV 11.9 (9.4-12.4) fL Immature Gran % 0.8 (0-4) % Seg Neutrophils % 84.9 % Lymphocytes % 8.4 % Monocytes % 5.8 % Eosinophils % 0.0 % Basophils % 0.1 % Neutrophils # 8.3 (1.6-8.9) K/mcL Lymphocytes # 0.8 (0.6-4.6) K/mcL Monocytes # 0.6 (0.0-1.3) K/mcL Eosinophils # 0.0 (0.0-0.6) K/mcL Basophils # 0.0 (0.0-0.2) K/mcL VBG pH (7.32-7.42) pH Units VBG pCO2 (41-51) mmHg VBG pO2 (25-50) mmHg VBG HCO3 (21-27) mEq/L Sodium 142 (136-145) mEq/L Potassium 4.6 (3.5-5.1) mEq/L Chloride 98 (98-107) mEq/L Carbon Dioxide 33 H (23-29) mEq/L BUN 29 H (8-23) mg/dL Creatinine 0.93 (0.60-1.20) mg/dL Est GFR ( Amer) > 60 (> 60) Est GFR (Non-Af Amer) > 60 (> 60) BUN/Creatinine Ratio 31 H (6-26) Glucose 195 H (70-105) mg/dL Calculated Osmolality 305 H (280-300) Lactic Acid 0.7 (0.5-2.2) mmol/L Calcium 9.4 (8.6-10.3) mg/dL Troponin I < 0.03 (< 0.04) ng/mL B-Natriuretic Peptide (Less than 100) pg/mL 05/19/18 05/19/18 Range/Units 11:55 12:09 WBC (4.3-11.1) K/mcL RBC (3.82-4.97) M/mcL Hgb (11.5-15.4) g/dL Hct (35.3-44.9) % MCV (83.0-100.0) fL MCH (28.0-33.3) pg MCHC (31.6-35.5) g/dL RDW (11.5-14.5) % Plt Count (140-400) K/mcL MPV (9.4-12.4) fL Immature Gran % (0-4) % Seg Neutrophils % % Lymphocytes % % Monocytes % % Eosinophils % % Basophils % % Neutrophils # (1.6-8.9) K/mcL Lymphocytes # (0.6-4.6) K/mcL Monocytes # (0.0-1.3) K/mcL Eosinophils # (0.0-0.6) K/mcL Basophils # (0.0-0.2) K/mcL VBG pH 7.44 H (7.32-7.42) pH Units VBG pCO2 57 H (41-51) mmHg VBG pO2 136 H (25-50) mmHg VBG HCO3 39 H (21-27) mEq/L Sodium (136-145) mEq/L Potassium (3.5-5.1) mEq/L Chloride (98-107) mEq/L Carbon Dioxide (23-29) mEq/L BUN (8-23) mg/dL Creatinine (0.60-1.20) mg/dL Est GFR ( Amer) (> 60) Est GFR (Non-Af Amer) (> 60) BUN/Creatinine Ratio (6-26) Glucose (70-105) mg/dL Calculated Osmolality (280-300) Lactic Acid (0.5-2.2) mmol/L Calcium (8.6-10.3) mg/dL Troponin I (< 0.04) ng/mL B-Natriuretic Peptide 770 H (Less than 100) pg/mL - Radiology Data Radiology results reviewed: Yes I reviewed the patient's radiology results. Chest X-Ray 05/19/18 11:37 IMPRESSION: 1. Very low lung volumes with left basilar atelectasis or infiltrate evident. 2. Possible small left pleural effusion. 3. Calcific atherosclerosis aorta. 4. Wires and cardiac leads overlying the chest could obscure an underlying finding. D/ / Nahid Hudson / Nahid Hudson Interpreting Provider: Nahid Hudson - EKG Data EKG attestation: Yes I reviewed and interpreted this EKG. EKG results narrative: EKG done at 1139 shows atrial fibrillation with RVR with a rate of [address] elevation or depression. Low voltage throughout. Normal axis. Unchanged from prior EKG done 05/17/2018.
[2018-05-19 12:44] LABS: BUN/Creatinine Ratio 31 (6-26); Blood Urea Nitrogen 29 mg/dL (8-23); Calcium 9.4 mg/dL (8.6-10.3); Carbon Dioxide 33 mEq/L (23-29); Chloride 98 mEq/L (98-107); Glucose 195 mg/dL (70-105); Osmolality,Calculated 305 (280-300); Potassium 4.6 mEq/L (3.5-5.1); Sodium 142 mEq/L (136-145); eGFR For Non-African Americans > 60 (> 60)
[2018-05-19] MEDS ORDERED: Naloxone 0.4 MG/ML INJ IVP PRN (15:35)
[2018-05-19] MEDS ORDERED: Diltiazem CD (24hr) 180 MG CAPSULE PO ONE (16:00)
[2018-05-19] MEDS: Ipratropium/Albuterol Neb 3 ML IH SCH ×2 (16:40→20:26)
--- NOTE | 2018-05-19 16:57 | Internal Med History&Physical ---
Date of Encounter: 05/19/18 Time of Encounter: 15:53 Internal Medicine - H&P: HPI Chief complaint: Shortness of breath Admitted From: Home Plans for Post Hospital Care: Home History of present illness: Ms. Cox is a 62 year old female who presents to the emergency room with treatment of shortness of breath. The patient was recently in the hospital for COPD exacerbation and possible pneumonia who was discharged home yesterday. Patient states that she was discharged yesterday and once arriving home she was initially okay but cannot get comfortable and throughout the night progressively got more short of breath and presented to the emergency department via EMS. He states she felt too weak to take her medications. He should not denies any cough or sputum production. Patient denies any fevers at home. Patient denies any nausea, vomiting. Patient does admit to some loose stools since being discharged. Patient was not hypoxic but very dyspneic upon presentation to the emergency department. Patient was given IV Solu-Medrol and placed on BiPAP with improvement in respiratory status. Due to the patient not taking her medications this am, the patient was in A. fib with RVR in the emergency department. The patient was given by mouth Cardizem in the emergency department. Due to the patient's history of mild pericardial effusion on echocardiogram emergency physicians performed bedside ultrasound sound which confirmed presence of mild cardial effusion with no evidence of tamponade. Patient's BNP however is slightly elevated and the patient has significant lower extremity edema however the patient does not have orthopnea. During pts prior hospitalization patient was treated for 6 days of Levaquin for pneumonia and sent home with 1 additional day to complete 1 week course which was completed today with dose of Levaquin in the emergency department. She was also treated with steroids were quickly tapered and the patient's respiratory status is at her baseline and she was not discharged with steroids. Patient also developed low hemoglobin and had upper endoscopy and colonoscopy which were unremarkable for any bleeding therefore her xarelto was restarted at discharge; however hemoglobin remained stable and actually improved from discharge. The patient's previous day she also had acute kidney injury and presented to the hospital on Lasix and Aldactone and losartan patient's creatinine was 3.19 on prior admission was discharged at a creatinine of 1.17, creatinine today 0.93. Patient has been enrolled in hospice at home that was revoked prior to last admission and was supposed to be set up at home again however unsure if this has been completed. 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 Psychiatric history: anxiety, depression - Past Surgical History Surgical History: no surgical history Additional surgical history: Knee scope - Social History Smoking Status: Never smoker Smokeless Tobacco Status: No Alcohol use: none Drug use: none - Family History Father Family Member Ethnicity: Non- Living Status: Hx Family Cardiac Disorders: Yes ([place], HTN) Brother Family Member Ethnicity: Non- Living Status: Still Living Hx Family GI Disorders: Yes Sister Family Member Ethnicity: Non- Living Status: Hx Family Cardiac Disorders: Yes Mother Adopted: No Family Member Ethnicity: Non- Living Status: Hx Family Cardiac Disorders: Yes Hx Family Respiratory Disorders: Yes (COPD) Hx Family Cancer: Yes (skin) Hx Family GI Disorders: No Hx Family Endocrine Disorder: Yes (DM) Hx Family Neuromuscular Disorders: No Hx Family Neurologic Disorders: Yes (CVA with rt sided weakness) Hx Family HEENT Disorders: Yes ([place]) Hx Family Autoimmune Disorders: No Internal Medicine - H&P: Meds Latanoprost [Xalatan] 1 drop BOTH EYES HS 04/06/16 [History] SitaGLIPtin [Januvia] 100 mg PO DAILY 04/06/16 [History] Albuterol Sulfate [Albuterol Inhaler] 2 puff IH Q4H PRN 04/14/17 [History] Citalopram Hydrobromide [Citalopram HBr] 40 mg PO HS 04/14/17 [History] Docusate [Colace] 100 mg PO DAILY 04/14/17 [History] Gabapentin [Neurontin] 600 mg PO HS 04/14/17 [History] Brimonidine 0.2% [Alphagan] 1 drop BOTH EYES AD 12/19/17 [History] Propylene Glycol/Peg 400 [Systane Ultra 0.4-0.3% Eye Drp] 1 drop OP QID [History] Ipratropium/Albuterol Neb [Duoneb] 3 ml IH [id number] PRN inhsol 01/18/18 [Rx] Iron Polysaccharide Complex [Ferrex 150] 150 mg PO DAILY capsule 01/18/18 [Rx] Ascorbic Acid [Vitamin C] 500 mg PO 0630 #30 tablet 01/25/18 [Rx] Isosorbide MONOnitrate (24 HR) [Imdur] 30 mg PO DAILY #30 tab.er.24h 01/25/18 [ Rx] Esomeprazole Magnesium [Nexium] 40 mg PO DAILY 03/29/18 [History] Ibandronate Sodium [Boniva] 150 mg PO QMONTH 03/29/18 [History] Atorvastatin [Lipitor] 20 mg PO HS #30 tablet 05/03/18 [Rx] Insulin DETEMIR [Levemir Flextouch] 40 unit SQ HS #12 insuln.pen 05/03/18 [Rx] Rivaroxaban [Xarelto] 20 mg PO 1700 #30 tablet 05/03/18 [Rx] Diltiazem CD (24hr) [Cardizem CD] 180 mg PO DAILY #30 cap.er.24h 05/18/18 [Rx] levoFLOXacin [Levaquin] 750 mg PO DAILY 1 Days #1 tablet 05/18/18 [Rx] 3 Allergy/AdvReac Type Severity Reaction Status Date / Time hydrocodone [From Vicodin] AdvReac Nausea Verified 05/13/18 10:46 Hydromorphone [From Dilaudid] AdvReac Nausea Verified 05/13/18 10:46 All Systems PM: A 10-system review of systems was performed and is negative for pertinent findings except as documented above in the HPI. Review of systems: 10 point review of systems was obtained and is otherwise negative other than described in history of present illness. - Constitutional Vitals: Temp Pulse Resp BP Pulse Ox 99.3 F 120 23 119/100 95 05/19/18 11:31 05/19/18 14:01 05/19/18 15:01 05/19/18 15:01 05/19/18 14:01 Exam: Constitutional: mild distress 2/2 dyspnea; requesting to be put back on bipap Psych: AAO x 3 HEENT: NCAT, EOMI Neck: supple Cardio: Irregularly irregular rhythm with tachycardia, no murmurs appreciated, no ovbious JVD however difficult to appreciate Resp: Patient with severely decreased breath sounds more pronounced in bases with expiratory wheezing Abd: soft, non tender/non distended, positive bowel sounds, no gaurding/reboud/ ridgitity; obese Extremities: 3+ pitting edema bilateral lower extremities Neuro: no focal deficits appreciated Lymph: no cervical/supraclavicular adenopahty apprecitated Internal Med - H&P Results - Labs CBC & Chem 7: 05/19/18 11:55 05/19/18 11:55 - Assessment and plan (1) Acute and chronic respiratory failure Current Visit: No Status: Acute Assessment and plan: Multifactorial due to current acute exacerbation of COPD with obstructive sleep apnea, pulmonary hypertension, and phrenic nerve palsy, and diastolic congestive heart failure heart failure -We will treat COPD exacerbation with IV steroids, DuoNeb's -Maintain BiPAP daily at bedtime and when necessary -We will resume patient's oral Lasix -Continuous pulse oximetry -Maintain sat of 88-92% Qualifiers: Respiratory failure complication: hypercapnia Qualified Code(s): J96.22 - Acute and chronic respiratory failure with hypercapnia (2) Acute exacerbation of chronic obstructive airways disease Current Visit: No Status: Acute Assessment and plan: Patient with acute exacerbation of COPD -Finished seven-day course of Levaquin today as last dose in ER -We will start azithromycin for anti-inflammatory properties and atypical coverage -Maintain BiPAP when necessary and daily at bedtime -Solu-Medrol 60 mg 4 times a day and hopefully taper quickly -Duonebs every 4 hours -Continuous pulse ox and maintain sat 88-92% (3) CKD (chronic kidney disease), stage III Current Visit: No Status: Chronic (4) Anemia Current Visit: No Status: Acute Assessment and plan: Macrocytic anemia -B12 and folate normal -Recent upper endoscopy and colonoscopy negative for any bleeding -Continue Xarelto for CVA prophylaxis -Hemoglobin actually improved from discharge at 9.0 -If patient develops severe anemia again will likely not be a Candidate for anticoagulation in the future -Monitor CBC Qualifiers: Anemia type: iron deficiency Iron deficiency anemia type: chronic blood loss Qualified Code(s): 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 (chronic) (5) Diastolic CHF Current Visit: No Status: Chronic Assessment and plan: Patient with history of chronic heart failure with preserved ejection fraction/ diastolic dysfunction -Last EF is 50-55% in April 2018 -Patient has small pericardial effusion on last echocardiogram that was confirmed with bedside ultrasound and emergency department today per ER note with no evidence of tamponade -Patient has elevated BNP on admission significant lower extremity edema however denies orthopnea -Patient previously on Aldactone and Lasix; this was held however due to recent severe acute kidney injury -We will resume patient's by mouth Lasix in a.m. -We will monitor volume status carefully -Daily intake and output -Daily weights Qualifiers: Heart failure chronicity: chronic Qualified Code(s): I50.32 - Chronic diastolic (congestive) heart failure (6) AIMEE (obstructive sleep apnea) Current Visit: No Status: Chronic Assessment and plan: BiPAP when necessary and daily at bedtime (7) Phrenic nerve palsy Current Visit: No Status: Chronic Assessment and plan: Patient with history of phrenic nerve palsy and has BiPAP at home this is likely contributing to her chronic respiratory failure and COPD exacerbations -Maintain BiPAP when necessary and daily at bedtime (8) Atrial fibrillation with RVR Current Visit: No Status: Resolved Assessment and plan: Patient with atrial fibrillation with rapid ventricular response; -Patient's Cardizem was increased to 180 mg prior to last discharge and missed this dose this morning -By mouth Cardizem 180 mg extended release was given in emergency department and will continue daily -CHADSVASC 4 -Patient on Xarelto for stroke prophylaxis -Place on telemetry and monitor heart rate -Will add PRN Lopressor IV for HR > 120 -May need to increase cardizem (9) Morbid obesity Current Visit: Yes Status: Chronic Assessment and plan: Encouraged dietary and lifestyle modifications. (10) DVT prophylaxis Current Visit: Yes Status: Acute Assessment and plan: Xarelto - Time Spent With Patient Total time spent is greater than 50% in coordination of care (as documented) at patient's floor/unit and/or counseling patient: Greater than 35 minutes
[2018-05-19] MEDS: methylPREDNISolone 125 MG/2 ML VIAL IVP SCH ×2 (17:23→17:35)
[2018-05-19] MEDS: Insulin LISPRO 300 UNITS/3 ML VIAL SQ SCH ×2 (17:23→22:01)
[2018-05-19] MEDS: Artificial Tears SOLN 15 ML BOTTLE OP SCH ×2 (17:23→22:03)
[2018-05-19] MEDS: *HR* Rivaroxaban 10 MG TABLET PO SCH (17:24)
[2018-05-19] MEDS ORDERED: *HR* Metoprolol 5 MG/5 ML VIAL IVP PRN (17:31)
[2018-05-19] MEDS: Furosemide 40 MG TABLET PO SCH (18:23)
[2018-05-19] MEDS: Budesonide/Formoterol 160/4.5 1 PUFF INH IH SCH (20:26)
[2018-05-19] MEDS: Gabapentin 300 MG CAPSULE PO SCH (21:57)
[2018-05-19] MEDS: Insulin DETEMIR 100 UNIT/ML X5UNITS SQ SCH (21:58)
[2018-05-19] MEDS: Nystatin POWDER 30 GM BOTTLE TP SCH (21:59)
[2018-05-19] MEDS: Latanoprost 2.5 ML BOTTLE BOTH EYES SCH (22:00)
[2018-05-20] MEDS: Ipratropium/Albuterol Neb 3 ML IH SCH ×4 (00:14→11:24)
[2018-05-20] MEDS: methylPREDNISolone 125 MG/2 ML VIAL IVP SCH ×2 (00:43→05:50)
[2018-05-20 03:21] LABS: Basophils % 0.2 %; Hematocrit 27.9 % (35.3-44.9); Hemoglobin 8.3 g/dL (11.5-15.4); Immature Granulocytes % 0.8 % (0-4); Lymphocytes # 0.3 K/mcL (0.6-4.6); Lymphocytes % 4.8 %; Mean Corpuscular HGB Conc 29.7 g/dL (31.6-35.5); Mean Corpuscular Hemoglobin 28.8 pg (28.0-33.3); Mean Corpuscular Volume 96.9 fL (83.0-100.0); Mean Platelet Volume 11.8 fL (9.4-12.4); Monocytes # 0.1 K/mcL (0.0-1.3); Neutrophils # 5.6 K/mcL (1.6-8.9); Platelet Count 187 K/mcL (140-400); Red Blood Count 2.88 M/mcL (3.82-4.97); Red Cell Distribution Width 13.5 % (11.5-14.5); Segmented Neutrophils % 93.2 %
[2018-05-20 03:40] LABS: BUN/Creatinine Ratio 30 (6-26); Blood Urea Nitrogen 32 mg/dL (8-23); Calcium 9.3 mg/dL (8.6-10.3); Carbon Dioxide 35 mEq/L (23-29); Chloride 100 mEq/L (98-107); Glucose 210 mg/dL (70-105); Magnesium 2.5 mg/dL (1.6-2.6); Osmolality,Calculated 297 (280-300); Phosphorous 3.4 mg/dL (2.7-4.5); Potassium 4.6 mEq/L (3.5-5.1); Sodium 137 mEq/L (136-145); eGFR For Non-African Americans 53 (> 60)
[2018-05-20] MEDS: Ascorbic Acid 500 MG TABLET PO SCH (05:51)
[2018-05-20] MEDS: Budesonide/Formoterol 160/4.5 1 PUFF INH IH SCH ×2 (07:57→19:45)
[2018-05-20] MEDS: Insulin LISPRO 300 UNITS/3 ML VIAL SQ SCH ×4 (08:14→21:12)
[2018-05-20] MEDS: Isosorbide MONOnitrate (24 HR) 30 MG TAB.ER.24H PO SCH (08:16)
[2018-05-20] MEDS: Furosemide 40 MG TABLET PO SCH (08:16)
[2018-05-20] MEDS: Azithromycin 250 MG TABLET PO SCH (08:16)
[2018-05-20] MEDS: Nystatin POWDER 30 GM BOTTLE TP SCH ×2 (08:17→21:07)
[2018-05-20] MEDS: Iron Polysaccharide Complex 150 MG CAPSULE PO SCH (08:17)
[2018-05-20] MEDS: Artificial Tears SOLN 15 ML BOTTLE OP SCH ×4 (08:18→20:57)
--- NOTE | 2018-05-20 09:03 | Internal Med Progress Note ---
Hospitalist Progress Note - Encounter Date of Encounter: 05/20/18 Time of Encounter: 08:55 - Subjective Interval History: Patient seen and examined at bedside. Patient over night events. Patient sitting in chair beside bed today and appears considerably more comfortable than on admission. The patient is off BiPAP currently and restrictions. Patient states she feels much improved. Patient denies any chest pain, palpitations, nausea, vomiting and states that loose stools improved. Had lengthy discussion with patient regarding her functional status and she states that she needs more help at home and was too weak to take care of herself she was home alone. Discussed option of going to rehabilitation facility for physical therapy and the patient thinks that would be a good idea. He states that her shortness of breath is close to her baseline now and has been urinating frequently since resuming Lasix last night and this morning states that her swelling is improved as well. - Exam Vitals: Temp Pulse Resp BP Pulse Ox 97.3 F L 80 19 147/84 95 05/20/18 07:10 05/20/18 07:10 05/20/18 07:58 05/20/18 07:10 05/20/18 07:58 Exam: Constitutional: mild distress 2/2 dyspnea, non toxic appearing, sitting in chair with no resp distress Psych: AAO x 3 HEENT: NCAT, EOMI Cardio: Irregularly irregular rhythm with tachycardia but rate improved, no murmurs appreciated, no ovbious JVD however difficult to appreciate Resp: improved air exchange with faint expiratory wheezes, much improved form yesterday, no retractions Abd: soft, non tender/non distended, positive bowel sounds, obese Extremities: 3+ pitting edema bilateral lower extremities; improved from yesterday Neuro: no focal deficits appreciated - Assessment and Plan (1) Acute and chronic respiratory failure Current Visit: No Status: Acute Assessment and Plan: Multifactorial due to current acute exacerbation of COPD with obstructive sleep apnea, pulmonary hypertension, and phrenic nerve palsy, and diastolic congestive heart failure heart failure -Continue duo nebs and IV steroids. -Wean steroids to 40 mg every 8 hours of Solu-Medrol -Maintain BiPAP daily at bedtime and when necessary -Change Lasix to daily from twice a day -Continuous pulse oximetry -Maintain sat of 88-92% (2) Acute exacerbation of chronic obstructive airways disease Current Visit: No Status: Acute Assessment and Plan: Patient with acute exacerbation of COPD -Finished seven-day course of Levaquin on 05/19/18 -Continue zithromycin for anti-inflammatory properties and atypical coverage -Maintain BiPAP when necessary and daily at bedtime -Solu-Medrol wean to 40mg TID -Duonebs every 4 hours -Continuous pulse ox and maintain sat 88-92% (3) CKD (chronic kidney disease), stage III Current Visit: No Status: Chronic Assessment and Plan: Chronic kidney disease stage III with recent acute renal failure -Previously on Aldactone and Lasix and ARB -As were held at discharge -PO Lasix was initiated last night and continued this morning -We will continue use of Lasix daily -Serum creatinine was over 3 at last admission however on admission yesterday SCr was 0.93; 1.06 today -Avoid nephrotoxins -Monitor intake and output; not accurately recorded so far -AM BMP (4) Anemia Current Visit: No Status: Acute Assessment and Plan: Macrocytic anemia -B12 and folate normal -Recent upper endoscopy and colonoscopy negative for any bleeding -Continue Xarelto for CVA prophylaxis -Hemoglobin actually improved from discharge at 9.0; 8.3 today -Patient denies melena or hematochezia -If patient develops severe anemia again will likely not be a Candidate for anticoagulation in the future -Monitor CBC (5) Diastolic CHF Current Visit: No Status: Chronic Assessment and Plan: Patient with history of chronic heart failure with preserved ejection fraction/ diastolic dysfunction -Last EF is 50-55% in April 2018 -Patient has small pericardial effusion on last echocardiogram that was confirmed with bedside ultrasound and emergency department today per ER note with no evidence of tamponade -Patient has elevated BNP on admission significant lower extremity edema however denies orthopnea -Patient previously on Aldactone and Lasix; this was held however due to recent severe acute kidney injury -she reports significantly improved respiratory status this am and reports very good dieresis with improvement in lower extremity swelling -Continue Lasix 40 mg by mouth daily -We will monitor volume status carefully -Daily intake and output; not accurately recorded so far -Daily weights (6) AIMEE (obstructive sleep apnea) Current Visit: No Status: Chronic Assessment and Plan: BiPAP when necessary and daily at bedtime (7) Phrenic nerve palsy Current Visit: No Status: Chronic Assessment and Plan: Patient with history of phrenic nerve palsy and has BiPAP at home this is likely contributing to her chronic respiratory failure and COPD exacerbations -Maintain BiPAP when necessary and daily at bedtime (8) Atrial fibrillation with RVR Current Visit: No Status: Resolved Assessment and Plan: Patient with atrial fibrillation with rapid ventricular response; improved however still mildly tachydardic -Patient's Cardizem was increased to 180 mg prior to last discharge and missed this dose morning of admission -By mouth Cardizem 180 mg extended release was given in emergency department and will continue daily -CHADSVAS 4 -Patient on Xarelto for stroke prophylaxis -Place on telemetry and monitor heart rate -Will add PRN Lopressor IV for HR > 120 -PO Lopressor started last evening; increase to 25mg bid (9) Morbid obesity Current Visit: Yes Status: Chronic Assessment and Plan: Encouraged dietary and lifestyle modifications. (10) DVT prophylaxis Current Visit: Yes Status: Acute Assessment and Plan: Xarelto - Time Spent with Patient Total time spent is greater than 50% in coordination of care (as documented) at patient's floor/unit and/or counseling patient: 25 - 35 minutes Plan of Care Discussed with: patient Internal Medicine: Result - Labs CBC & Chem 7: 05/20/18 02:53 05/20/18 02:53 Labs: Short CBC 05/20/18 Range/Units 02:53 WBC 6.0 (4.3-11.1) K/mcL Hgb 8.3 L (11.5-15.4) g/dL Hct 27.9 L (35.3-44.9) % Plt Count 187 (140-400) K/mcL Neutrophils # 5.6 (1.6-8.9) K/mcL BMP 05/20/18 02:53 Sodium 137 Potassium 4.6 Chloride 100 Carbon Dioxide 35 H BUN 32 H Creatinine 1.06 Glucose 210 H Calcium 9.3 Consult Discharge Plan - Plan Referrals: Aayush Chase MD [Primary Care Provider] - (1) Acute and chronic respiratory failure Qualifiers: Respiratory failure complication: hypercapnia Qualified Code(s): J96.22 - Acute and chronic respiratory failure with hypercapnia (4) Anemia Qualifiers: Anemia type: iron deficiency Iron deficiency anemia type: chronic blood loss Qualified Code(s): 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 ( chronic) (5) Diastolic CHF Qualifiers: Heart failure chronicity: chronic Qualified Code(s): I50.32 - Chronic diastolic (congestive) heart failure
[2018-05-20] MEDS ORDERED: Ipratropium/Albuterol Neb 3 ML IH PRN (11:30)
[2018-05-20] MEDS: Acetaminophen 325 MG TABLET PO PRN ×2 (12:35→21:03)
[2018-05-20] MEDS: MethylPREDNISolone 40 MG/ML VIAL IVP SCH (16:54)
[2018-05-20] MEDS: *HR* Rivaroxaban 10 MG TABLET PO SCH (16:56)
[2018-05-20] MEDS: Diltiazem CD (24hr) 180 MG CAPSULE PO SCH (17:00)
[2018-05-20] MEDS: Latanoprost 2.5 ML BOTTLE BOTH EYES SCH (20:56)
[2018-05-20] MEDS: Gabapentin 300 MG CAPSULE PO SCH (20:59)
[2018-05-20] MEDS: Insulin DETEMIR 100 UNIT/ML X5UNITS SQ SCH (20:59)
[2018-05-21] MEDS: MethylPREDNISolone 40 MG/ML VIAL IVP SCH ×2 (00:02→08:57)
[2018-05-21 05:02] LABS: Hemoglobin 8.4 g/dL (11.5-15.4); Immature Granulocytes % 0.5 % (0-4); Lymphocytes # 0.4 K/mcL (0.6-4.6); Lymphocytes % 4.2 %; Mean Corpuscular Hemoglobin 28.4 pg (28.0-33.3); Monocytes # 0.2 K/mcL (0.0-1.3); Monocytes % 2.7 %; Neutrophils # 8.2 K/mcL (1.6-8.9); Platelet Count 190 K/mcL (140-400); Red Blood Count 2.96 M/mcL (3.82-4.97); Red Cell Distribution Width 13.9 % (11.5-14.5); Segmented Neutrophils % 92.6 %
[2018-05-21 05:18] LABS: Calcium 9.2 mg/dL (8.6-10.3); Potassium 4.7 mEq/L (3.5-5.1)
[2018-05-21] MEDS: Ascorbic Acid 500 MG TABLET PO SCH (05:53)
[2018-05-21] MEDS: Isosorbide MONOnitrate (24 HR) 30 MG TAB.ER.24H PO SCH (08:54)
[2018-05-21] MEDS: Iron Polysaccharide Complex 150 MG CAPSULE PO SCH (08:55)
[2018-05-21] MEDS: Nystatin POWDER 30 GM BOTTLE TP SCH ×2 (08:56→21:09)
[2018-05-21] MEDS: Artificial Tears SOLN 15 ML BOTTLE OP SCH ×4 (08:57→20:58)
[2018-05-21] MEDS: Insulin LISPRO 300 UNITS/3 ML VIAL SQ SCH ×4 (08:57→21:06)
[2018-05-21] MEDS: Azithromycin 250 MG TABLET PO SCH (08:59)
[2018-05-21] MEDS ORDERED: Furosemide 40 MG TABLET PO SCH (09:00)
--- NOTE | 2018-05-21 09:59 | Internal Med Progress Note ---
Hospitalist Progress Note - Encounter Date of Encounter: 05/21/18 Time of Encounter: 09:56 - Subjective Interval History: Patient seen and examined at bedside. Patient over night events. Patient sitting in chair beside bed today and states that she feels better than she has a long time. Patient denies any chest pain, shortness breath, nausea, vomiting , diarrhea. Patient states her lower extremity edema is much improved. She continues to use BiPAP at night and when needed. Clean the patient that her kidney function worsened today, and she is already gotten her morning Lasix. Patient again expresses interest in ECF placement for rehabilitation. She states that she understands she cannot take care of herself at home even with current set up with help aids. - Exam Vitals: Temp Pulse Resp BP Pulse Ox 97.7 F 69 18 130/88 97 05/21/18 06:44 05/21/18 06:44 05/21/18 06:44 05/21/18 06:44 05/21/18 06:44 Exam: Constitutional: mild distress 2/2 dyspnea, non toxic appearing, sitting in chair with no resp distress Psych: AAO x 3 HEENT: NCAT Cardio: Irregularly irregular rhythm with tachycardia but rate improved, no murmurs appreciated, no ovbious JVD however difficult to appreciate Resp: Decreased breath sounds in bases, very minimal expiratory wheezes. Patient does have faint crackles in bases Abd: soft, non tender/non distended, positive bowel sounds, obese Extremities: 3+ pitting edema bilateral lower extremities that continues to improve Neuro: no focal deficits appreciated - Assessment and Plan (1) Acute and chronic respiratory failure Current Visit: Yes Status: Acute Assessment and Plan: Multifactorial due to current acute exacerbation of COPD with obstructive sleep apnea, pulmonary hypertension, and phrenic nerve palsy, and diastolic congestive heart failure heart failure -Continue duo nebs -Wean steroids changed to 30 mg of prednisone daily -Maintain BiPAP daily at bedtime and when necessary -Lasix will be discontinued however patient got a dose today; 500 mL of IV fluid normal saline will be given slowly -We will monitor respiratory status -Continuous pulse oximetry -Maintain sat of 88-92% (2) Acute exacerbation of chronic obstructive airways disease Current Visit: Yes Status: Acute Assessment and Plan: Patient with acute exacerbation of COPD -Finished seven-day course of Levaquin on 05/19/18 -Continue zithromycin for anti-inflammatory properties and atypical coverage -Maintain BiPAP when necessary and daily at bedtime -Changed to by mouth steroids prednisone 30 mg starting today -Duonebs as needed -Continuous pulse ox and maintain sat 88-92% (3) Acute kidney injury superimposed on chronic kidney disease Current Visit: Yes Status: Acute Assessment and Plan: Chronic kidney disease stage III with recent acute renal failure; now with acute kidney injury -Previously on Aldactone and Lasix and ARB and these were held at discharge -PO Lasix was initiated this admission; however the patient had increase in serum creatinine to 1.47 from 0.93 -Baseline serum creatinine heart to establish due to patient's frequent acute kidney injury however appears to be somewhere between 0.7 and 1.8 -At the current time due to the patient's lack of orthopnea we will discontinue Lasix and give back 500 mL of normal saline at 50 mL per hour -Will monitor respiratory status carefully and informed patient to let us know she gets short of breath; will use BiPAP if needed -Serum creatinine was over 3 at last admission however on admissionSCr was 0.93 -Avoid nephrotoxins -Monitor intake and output; not accurately recorded so far -AM BMP (4) Anemia Current Visit: Yes Status: Acute Assessment and Plan: Macrocytic anemia -B12 and folate normal -Recent upper endoscopy and colonoscopy negative for any bleeding -Continue Xarelto for CVA prophylaxis -Hemoglobin stable at 8.4 today -Patient denies melena or hematochezia -If patient develops severe anemia again will likely not be a Candidate for anticoagulation in the future -Monitor CBC (5) Diastolic CHF Current Visit: Yes Status: Chronic Assessment and Plan: Patient with history of chronic heart failure with preserved ejection fraction/ diastolic dysfunction -Last EF is 50-55% in April 2018 -Patient has small pericardial effusion on last echocardiogram that was confirmed with bedside ultrasound and emergency department today per ER note with no evidence of tamponade -Patient has elevated BNP on admission significant lower extremity edema however denies orthopnea -Patient previously on Aldactone and Lasix; this was held however due to recent severe acute kidney injury -she reports significantly improved respiratory status that is now at her baseline, reports very good dieresis with improvement in lower extremity swelling -Due to acute kidney injury and sensitivity to Lasix we will discontinue Lasix and give the patient 500 mL of normal saline at 50 mL an hour -Monitor respiratory status carefully and use BiPAP if needed -We will monitor volume status carefully -Daily intake and output; not accurately recorded so far however -560 mL fluid balance since admission is documented -Daily weights (6) AIMEE (obstructive sleep apnea) Current Visit: Yes Status: Chronic Assessment and Plan: BiPAP when necessary and daily at bedtime (7) Phrenic nerve palsy Current Visit: Yes Status: Chronic Assessment and Plan: Patient with history of phrenic nerve palsy and has BiPAP at home this is likely contributing to her chronic respiratory failure and COPD exacerbations -Maintain BiPAP when necessary and daily at bedtime (8) Atrial fibrillation with RVR Current Visit: Yes Status: Resolved Assessment and Plan: Patient with atrial fibrillation with rapid ventricular response; now controlled -Patient's Cardizem was increased to 180 mg prior to last discharge and missed this dose morning of admission -By mouth Cardizem 180 mg extended release was given in emergency department and will continue daily -CHADSVAS 4 -Patient on Xarelto for stroke prophylaxis -Telemetry -Heart rate is now controlled continue CardizemCD 180 mg and metoprolol 25 mg twice a day (9) Morbid obesity Current Visit: Yes Status: Chronic Assessment and Plan: Encouraged dietary and lifestyle modifications. (10) DVT prophylaxis Current Visit: Yes Status: Acute Assessment and Plan: Xarelto DVT Prophylaxis: xarelto - Summary of Assessment and Plan Summary of Assessment and Plan: Patient clinically much improved from admission. Will need ECF placement. Await social work and case management evaluation tomorrow. Continue to monitor renal function. - Time Spent with Patient Total time spent is greater than 50% in coordination of care (as documented) at patient's floor/unit and/or counseling patient: 25 - 35 minutes Plan of Care Discussed with: patient Internal Medicine: Result - Labs CBC & Chem 7: 05/21/18 04:22 05/21/18 04:22 Labs: Short CBC 05/21/18 Range/Units 04:22 WBC 8.8 (4.3-11.1) K/mcL Hgb 8.4 L (11.5-15.4) g/dL Hct 29.0 L (35.3-44.9) % Plt Count 190 (140-400) K/mcL Neutrophils # 8.2 (1.6-8.9) K/mcL BMP 08/12/18 04:22 Sodium 141 Potassium 4.7 Chloride 98 Carbon Dioxide 38 H BUN 46 H Creatinine 1.47 H Glucose 168 H Calcium 9.2 Consult Discharge Plan - Plan Referrals: Aayush Chase MD [Primary Care Provider] - (1) Acute and chronic respiratory failure Qualifiers: Respiratory failure complication: hypercapnia Qualified Code(s): J96.22 - Acute and chronic respiratory failure with hypercapnia (4) Anemia Qualifiers: Anemia type: iron deficiency Iron deficiency anemia type: chronic blood loss Qualified Code(s): 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 ( chronic) (5) Diastolic CHF Qualifiers: Heart failure chronicity: chronic Qualified Code(s): I50.32 - Chronic diastolic (congestive) heart failure
[2018-05-21] MEDS ORDERED: 0.9 % Sodium Chloride 1,000 ML IVC SCH (10:00)
--- NOTE | 2018-05-21 10:17 | Physician Discharge Referral ---
ExtendedCare Referral Info Transfer To: ecf Provider in Charge after Transfer: PCP Institutional Level of Care: Skilled (Needs nursing and physical therapy) - Diagnosis (1) Acute and chronic respiratory failure Status: Acute (2) Acute exacerbation of chronic obstructive airways disease Status: Acute (3) Acute kidney injury superimposed on chronic kidney disease Status: Acute (4) Anemia Status: Acute (5) Diastolic CHF Status: Chronic (6) AIMEE (obstructive sleep apnea) Status: Chronic (7) Phrenic nerve palsy Status: Chronic (8) Atrial fibrillation with RVR Status: Resolved (9) Morbid obesity Status: Chronic (10) DVT prophylaxis Status: Acute - Transfer Medications Home Medications: Latanoprost [Xalatan] 1 drop BOTH EYES HS 04/06/16 [History] SitaGLIPtin [Januvia] 100 mg PO DAILY 04/06/16 [History] Albuterol Sulfate [Albuterol Inhaler] 2 puff IH Q4H PRN 04/14/17 [History] Citalopram Hydrobromide [Citalopram HBr] 40 mg PO HS 04/14/17 [History] Docusate [Colace] 100 mg PO DAILY 04/14/17 [History] Gabapentin [Neurontin] 600 mg PO HS 04/14/17 [History] Brimonidine 0.2% [Alphagan] 1 drop BOTH EYES BID 12/19/17 [History] Propylene Glycol/Peg 400 [Systane Ultra 0.4-0.3% Eye Drp] 1 drop OP QID [History] Ipratropium/Albuterol Neb [Duoneb] 3 ml IH [id number] PRN inhsol 01/18/18 [Rx] Iron Polysaccharide Complex [Ferrex 150] 150 mg PO DAILY capsule 01/18/18 [Rx] Ascorbic Acid [Vitamin C] 500 mg PO 0630 #30 tablet 01/25/18 [Rx] Isosorbide MONOnitrate (24 HR) [Imdur] 30 mg PO DAILY #30 tab.er.24h 01/25/18 [ Rx] Esomeprazole Magnesium [Nexium] 40 mg PO DAILY 03/29/18 [History] Ibandronate Sodium [Boniva] 150 mg PO QMONTH 03/29/18 [History] Atorvastatin [Lipitor] 20 mg PO HS #30 tablet 05/03/18 [Rx] Insulin DETEMIR [Levemir Flextouch] 40 unit SQ HS #12 insuln.pen 05/03/18 [Rx] Rivaroxaban [Xarelto] 20 mg PO 1700 #30 tablet 05/03/18 [Rx] Diltiazem CD (24hr) [Cardizem CD] 180 mg PO DAILY #30 cap.er.24h 05/18/18 [Rx] levoFLOXacin [Levaquin] 750 mg PO DAILY 1 Days #1 tablet 05/18/18 [Rx] Allergies/Adverse Reactions: 3 Allergy/AdvReac Type Severity Reaction Status Date / Time hydrocodone [From Vicodin] AdvReac Nausea Verified 05/13/18 10:46 Hydromorphone [From Dilaudid] AdvReac Nausea Verified 05/13/18 10:46 - Respiratory Orders Smoking Cessation: Smoking cessation has been advised. For more information, call the [place] Tobacco Quit Line at 7-972-DZBY-NOW. CERTIFICATION: I certify that the transfer of the above named patient to an Extended Care Facility is necessary for the continuing treatment of the diagnosis listed. The above information is true and accurate reflection of patient's current condition. Confidential - Redisclosure prohibited without a patient's written consent.
[2018-05-21] MEDS ORDERED: 0.9 % Sodium Chloride 500 ML IVC SCH (10:45)
[2018-05-21] MEDS: Budesonide/Formoterol 160/4.5 1 PUFF INH IH SCH ×2 (11:12→20:10)
[2018-05-21] MEDS: predniSONE 10 MG TABLET PO SCH (11:28)
[2018-05-21] MEDS: *HR* Rivaroxaban 10 MG TABLET PO SCH (16:49)
[2018-05-21] MEDS: Diltiazem CD (24hr) 180 MG CAPSULE PO SCH (16:49)
[2018-05-21] MEDS: Gabapentin 300 MG CAPSULE PO SCH (21:00)
[2018-05-21] MEDS: Latanoprost 2.5 ML BOTTLE BOTH EYES SCH (21:01)
[2018-05-21] MEDS: Acetaminophen 325 MG TABLET PO PRN (21:04)
[2018-05-21] MEDS: Insulin DETEMIR 100 UNIT/ML X5UNITS SQ SCH (21:06)
[2018-05-22 04:23] LABS: Hematocrit 29.6 % (35.3-44.9); Hemoglobin 8.6 g/dL (11.5-15.4); Immature Granulocytes % 0.5 % (0-4); Lymphocytes # 0.3 K/mcL (0.6-4.6); Lymphocytes % 4.1 %; Mean Corpuscular HGB Conc 29.1 g/dL (31.6-35.5); Mean Corpuscular Hemoglobin 28.5 pg (28.0-33.3); Mean Platelet Volume 11.8 fL (9.4-12.4); Monocytes # 0.4 K/mcL (0.0-1.3); Monocytes % 5.4 %; Neutrophils # 6.9 K/mcL (1.6-8.9); Platelet Count 166 K/mcL (140-400); Red Blood Count 3.02 M/mcL (3.82-4.97); Red Cell Distribution Width 13.9 % (11.5-14.5)
[2018-05-22 04:41] LABS: Magnesium 2.5 mg/dL (1.6-2.6); Phosphorous 4.5 mg/dL (2.7-4.5); Potassium 4.7 mEq/L (3.5-5.1)
[2018-05-22] MEDS: Ascorbic Acid 500 MG TABLET PO SCH (06:15)
--- NOTE | 2018-05-22 06:22 | Electrocardiograph Report ---
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
[2018-05-22] MEDS: Budesonide/Formoterol 160/4.5 1 PUFF INH IH SCH ×2 (07:39→21:22)
[2018-05-22] MEDS: Insulin LISPRO 300 UNITS/3 ML VIAL SQ SCH ×4 (09:40→20:31)
[2018-05-22] MEDS: Artificial Tears SOLN 15 ML BOTTLE OP SCH ×4 (09:41→20:30)
[2018-05-22] MEDS: Azithromycin 250 MG TABLET PO SCH (09:41)
[2018-05-22] MEDS: Isosorbide MONOnitrate (24 HR) 30 MG TAB.ER.24H PO SCH (09:42)
[2018-05-22] MEDS: Nystatin POWDER 30 GM BOTTLE TP SCH ×2 (09:42→20:30)
[2018-05-22] MEDS: Iron Polysaccharide Complex 150 MG CAPSULE PO SCH (09:42)
[2018-05-22] MEDS: predniSONE 10 MG TABLET PO SCH (09:42)
--- NOTE | 2018-05-22 10:25 | Internal Med Progress Note ---
<Larry Kincaid W - Last Filed: 05/22/18 16:53> Hospitalist Progress Note - Encounter Date of Encounter: 05/22/18 Time of Encounter: 10:20 - Subjective Interval History: Today the patient reports significant improvement. She states she is less short of breath especially at rest. Still has significant shortness of breath with movement but states that this is close to her baseline. Her cough is less but she still has productive cough with green sputum. Patient has severe swelling in her lower extremities but states that this is her baseline. States her wheezing is less. Overall patient feels much better today and states she is at her baseline. - Exam Vitals: Temp Pulse Resp BP Pulse Ox 97.6 F 72 12 127/82 100 05/22/18 08:04 05/22/18 08:04 05/22/18 08:04 05/22/18 08:04 05/22/18 08:04 Exam: General: No apparent distress, alert and oriented, HEENT: Atraumatic normocephalic, pupils equal round reactive light, extraocular muscles intact, Cardiovascular regular rate and rhythm, no murmurs rubs or gallops positive S1 positive S2 negative S3 negative S 4 Pulmonary clear to auscultation bilateral, expiratory wheeze bilateral no rales MSK: 4+ pitting edema bilateral lower extremities Psych alert, appropriate, normal affect, normal mood - Assessment and Plan (1) Acute and chronic respiratory failure Current Visit: Yes Status: Acute Assessment and Plan: Multifactorial due to current acute exacerbation of COPD with obstructive sleep apnea, pulmonary hypertension, and phrenic nerve palsy, and diastolic congestive heart failure heart failure -BiPAP daily at bedtime and when necessary -Lasix discontinued last dose 05/21/18 Plan -Continue duo nebs -Wean steroids changed to 30 mg of prednisone day 2 -Maintain sat of 88-92% (2) Diastolic CHF Current Visit: Yes Status: Chronic Assessment and Plan: Patient with history of chronic heart failure with preserved ejection fraction/ diastolic dysfunction -Last EF is 50-55% in April 2018 -Patient has small pericardial effusion on last echocardiogram that was confirmed with bedside ultrasound and emergency department today per ER note with no evidence of tamponade -Patient has elevated BNP on admission significant lower extremity edema however denies orthopnea -Patient previously on Aldactone and Lasix; this was held however due to recent severe acute kidney injury -Patient report significant improvement today Plan -Daily intake and output and daily weights -Monitor for symptomatic decline (3) Anemia Current Visit: Yes Status: Acute Assessment and Plan: Macrocytic anemia -B12 and folate normal -Recent upper endoscopy and colonoscopy negative for any bleeding -Continue Xarelto for CVA prophylaxis -Hemoglobin stable at 8.6 today Plan -Monitor CBC (4) Acute exacerbation of chronic obstructive airways disease Current Visit: Yes Status: Acute Assessment and Plan: Patient with acute exacerbation of COPD -Finished seven-day course of Levaquin on 05/19/18 -On Azithromycin day 3 -Duonebs are PRN Plan -Maintain BiPAP when necessary and daily at bedtime -Prednisone taper 30 mg PO day 2 -Continuous pulse ox and maintain sat 88-92% (5) Atrial fibrillation with RVR Current Visit: Yes Status: Resolved Assessment and Plan: Patient with atrial fibrillation with rapid ventricular response; now controlled -CHADSVASC 4 -Patient on Xarelto for stroke prophylaxis Plan -Telemetry - continue Cardizem CD 180 mg and metoprolol 25 mg twice a day (6) Phrenic nerve palsy Current Visit: Yes Status: Chronic Assessment and Plan: Patient with history of phrenic nerve palsy and has BiPAP at home this is likely contributing to her chronic respiratory failure and COPD exacerbations -Maintain BiPAP when necessary and daily at bedtime (7) AIMEE (obstructive sleep apnea) Current Visit: Yes Status: Chronic Assessment and Plan: BiPAP when necessary and daily at bedtime (8) Morbid obesity Current Visit: Yes Status: Chronic Assessment and Plan: Encouraged dietary and lifestyle modifications. (9) DVT prophylaxis Current Visit: Yes Status: Acute Assessment and Plan: Xarelto (10) Acute kidney injury superimposed on chronic kidney disease Current Visit: Yes Status: Acute Assessment and Plan: Chronic kidney disease stage III with recent acute renal failure; now with acute kidney injury -Previously on Aldactone and Lasix and ARB and these were held at discharge -patient Cr 1.53 today -Lasix was D/C due to lack of orthopnea with concern of rising creatinine Plan -Avoid nephrotoxins -Monitor intake and output - Time Spent with Patient Total time spent is greater than 50% in coordination of care (as documented) at patient's floor/unit and/or counseling patient: Internal Medicine: Result - Labs CBC & Chem 7: 05/22/18 03:49 05/22/18 03:49 Labs: Short CBC 05/22/18 Range/Units 03:49 WBC 7.7 (4.3-11.1) K/mcL Hgb 8.6 L (11.5-15.4) g/dL Hct 29.6 L (35.3-44.9) % Plt Count 166 (140-400) K/mcL Neutrophils # 6.9 (1.6-8.9) K/mcL BMP 05/22/18 03:49 Sodium 140 Potassium 4.7 Chloride 98 Carbon Dioxide 37 H BUN 53 H Creatinine 1.53 H Glucose 296 H Calcium 9.0 Consult Discharge Plan - Plan Referrals: Aayush Chase MD [Primary Care Provider] - <Luis Alfredo Yi - Last Filed: 05/22/18 18:25> Hospitalist Progress Note - Encounter Date of Encounter: 05/22/18 - Exam Vitals: Temp Pulse Resp BP Pulse Ox 97.6 F 94 16 129/92 100 05/22/18 16:44 05/22/18 16:44 05/22/18 16:44 05/22/18 16:44 05/22/18 16:44 - Assessment and Plan (1) Anemia Current Visit: Yes Status: Acute (2) Morbid obesity Current Visit: Yes Status: Chronic (3) Diastolic CHF Current Visit: Yes Status: Chronic (4) AIMEE (obstructive sleep apnea) Current Visit: Yes Status: Chronic (5) Acute and chronic respiratory failure Current Visit: Yes Status: Acute (6) Acute exacerbation of chronic obstructive airways disease Current Visit: Yes Status: Acute (7) Atrial fibrillation with RVR Current Visit: Yes Status: Resolved (8) Phrenic nerve palsy Current Visit: Yes Status: Chronic (9) DVT prophylaxis Current Visit: Yes Status: Acute (10) Acute kidney injury superimposed on chronic kidney disease Current Visit: Yes Status: Acute - Time Spent with Patient Total time spent is greater than 50% in coordination of care (as documented) at patient's floor/unit and/or counseling patient: Internal Medicine: Result - Labs CBC & Chem 7: 05/22/18 03:49 05/22/18 03:49 Labs: Short CBC 05/22/18 Range/Units 03:49 WBC 7.7 (4.3-11.1) K/mcL Hgb 8.6 L (11.5-15.4) g/dL Hct 29.6 L (35.3-44.9) % Plt Count 166 (140-400) K/mcL Neutrophils # 6.9 (1.6-8.9) K/mcL BMP 05/22/18 03:49 Sodium 140 Potassium 4.7 Chloride 98 Carbon Dioxide 37 H BUN 53 H Creatinine 1.53 H Glucose 296 H Calcium 9.0 - Attending Attestation I examined this patient and my medical decision-making was reviewed with the Resident Physician on 05/22/18. I agree with the documented findings, disposition and treatment plan as described except to the extent set forth below. Ms Cox is currently in observation for acute resp failure and CHF. She is awaiting precert for SNF. She remains moderate to high risk. Ms Cox is overall feeling better. No fever or chills. Breathing better. No GI issues. Exam alert Comfortable Mucus membranes dry Heart distant No wheeze or rales Abd soft Edema present I/P 1. Resp failure 2. CHF exac Further diagnoses and plan as above. <Larry Kincaid - Last Filed: 05/22/18 16:53> (1) Acute and chronic respiratory failure Qualifiers: Respiratory failure complication: hypercapnia Qualified Code(s): J96.22 - Acute and chronic respiratory failure with hypercapnia; J96.22 - Acute and chronic respiratory failure with hypercapnia (2) Diastolic CHF Qualifiers: Heart failure chronicity: chronic Qualified Code(s): I50.32 - Chronic diastolic (congestive) heart failure (3) Anemia Qualifiers: Anemia type: iron deficiency Iron deficiency anemia type: chronic blood loss Qualified Code(s): 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 ( chronic) <Luis Alfredo Yi - Last Filed: 08/13/18 18:25> (1) Anemia Qualifiers: Anemia type: iron deficiency Iron deficiency anemia type: chronic blood loss Qualified Code(s): 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 ( chronic) (3) Diastolic CHF Qualifiers: Heart failure chronicity: chronic Qualified Code(s): I50.32 - Chronic diastolic (congestive) heart failure (5) Acute and chronic respiratory failure Qualifiers: Respiratory failure complication: hypoxia and hypercapnia Qualified Code(s): J96.21 - Acute and chronic respiratory failure with hypoxia; J96.22 - Acute and chronic respiratory failure with hypercapnia
[2018-05-22] MEDS ORDERED: *HR* Dextrose 50 % in Water (Syg) 50 ML SYRINGE IVP PRN (13:05)
[2018-05-22] MEDS ORDERED: D5% in Water 1,000 ML IVC PRN (13:05)
[2018-05-22] MEDS ORDERED: Dextrose Gel 15 GM/37.5 ML TUBE PO PRN ×2 (13:05)
--- NOTE | 2018-05-22 16:36 | Electrocardiograph Report ---
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
[2018-05-22] MEDS: Diltiazem CD (24hr) 180 MG CAPSULE PO SCH (17:38)
[2018-05-22] MEDS: *HR* Rivaroxaban 10 MG TABLET PO SCH (17:38)
[2018-05-22] MEDS: Acetaminophen 325 MG TABLET PO PRN (20:29)
[2018-05-22] MEDS: Gabapentin 300 MG CAPSULE PO SCH (20:30)
[2018-05-22] MEDS: Latanoprost 2.5 ML BOTTLE BOTH EYES SCH (20:30)
[2018-05-22] MEDS: Insulin DETEMIR 100 UNIT/ML X5UNITS SQ SCH (20:31)
[2018-05-23 04:55] LABS: Hematocrit 30.2 % (35.3-44.9); Hemoglobin 8.9 g/dL (11.5-15.4); Immature Granulocytes % 0.7 % (0-4); Lymphocytes # 0.5 K/mcL (0.6-4.6); Lymphocytes % 6.9 %; Mean Corpuscular HGB Conc 29.5 g/dL (31.6-35.5); Mean Corpuscular Hemoglobin 28.7 pg (28.0-33.3); Mean Corpuscular Volume 97.4 fL (83.0-100.0); Mean Platelet Volume 11.9 fL (9.4-12.4); Monocytes # 0.7 K/mcL (0.0-1.3); Monocytes % 10.3 %; Neutrophils # 5.7 K/mcL (1.6-8.9); Platelet Count 156 K/mcL (140-400); Red Cell Distribution Width 14.2 % (11.5-14.5); Segmented Neutrophils % 82.1 %
[2018-05-23 05:12] LABS: Potassium 4.8 mEq/L (3.5-5.1)
[2018-05-23] MEDS: Ascorbic Acid 500 MG TABLET PO SCH (06:03)
[2018-05-23] MEDS: Budesonide/Formoterol 160/4.5 1 PUFF INH IH SCH ×2 (07:40→19:50)
[2018-05-23] MEDS: Iron Polysaccharide Complex 150 MG CAPSULE PO SCH (08:13)
[2018-05-23] MEDS: Insulin LISPRO 300 UNITS/3 ML VIAL SQ SCH ×5 (08:13→22:09)
[2018-05-23] MEDS: Isosorbide MONOnitrate (24 HR) 30 MG TAB.ER.24H PO SCH (08:13)
[2018-05-23] MEDS: Artificial Tears SOLN 15 ML BOTTLE OP SCH ×4 (08:13→22:08)
[2018-05-23] MEDS: Azithromycin 250 MG TABLET PO SCH (08:13)
[2018-05-23] MEDS: predniSONE 10 MG TABLET PO SCH (08:13)
[2018-05-23] MEDS: Nystatin POWDER 30 GM BOTTLE TP SCH (08:14)
--- NOTE | 2018-05-23 10:20 | Internal Med Progress Note ---
<SanjivLarry W - Last Filed: 05/23/18 13:12> Hospitalist Progress Note - Encounter Date of Encounter: 05/23/18 Time of Encounter: 09:12 - Subjective Interval History: Today the patient reports significant improvement. She states she is less short of breath especially at rest. Still has significant shortness of breath with movement but states that this is close to her baseline. Increased amount of sputum production this helps with her breathing. Patient has severe swelling in her lower extremities but states that this is her baseline. States her wheezing is less. Overall patient feels much better today and states she is at her baseline and is ready to be discharged from her perspective. - Exam Vitals: Temp Pulse Resp BP Pulse Ox 97.6 F 99 16 127/66 97 05/23/18 07:46 05/23/18 07:46 05/23/18 07:46 05/23/18 07:46 05/23/18 08:21 Exam: General: No apparent distress, alert and oriented, HEENT: Atraumatic normocephalic, pupils equal round reactive light, extraocular muscles intact, Cardiovascular regular rate and rhythm, no murmurs rubs or gallops positive S1 positive S2 negative S3 negative S 4 Pulmonary clear to auscultation bilateral, expiratory wheeze bilateral no rales MSK: 4+ pitting edema bilateral lower extremities Psych alert, appropriate, normal affect, normal mood - Assessment and Plan (1) Acute and chronic respiratory failure Current Visit: Yes Status: Acute Assessment and Plan: Multifactorial due to current acute exacerbation of COPD with obstructive sleep apnea, pulmonary hypertension, and phrenic nerve palsy, and diastolic congestive heart failure -BiPAP daily at bedtime and when necessary -Lasix discontinued last dose 05/21/18 due to MARIFER Plan -Continue duo nebs -Wean steroids changed to 30 mg of prednisone day 3 -Maintain sat of 88-92% (2) Diastolic CHF Current Visit: Yes Status: Chronic Assessment and Plan: Patient with history of chronic heart failure with preserved ejection fraction/ diastolic dysfunction -Last EF is 50-55% in April 2018 -Patient has small pericardial effusion on last echocardiogram that was confirmed with bedside ultrasound and emergency department today per ER note with no evidence of tamponade -Patient has elevated BNP on admission significant lower extremity edema however denies orthopnea -Patient previously on Aldactone and Lasix; this was held however due to recent severe acute kidney injury -Patient report significant improvement today Plan -Daily intake and output and daily weights -Monitor for symptomatic decline (3) Acute exacerbation of chronic obstructive airways disease Current Visit: Yes Status: Acute Assessment and Plan: Patient with acute exacerbation of COPD -Finished seven-day course of Levaquin on 05/19/18 -On Azithromycin day 4 -Duonebs are PRN Plan -Maintain BiPAP when necessary and daily at bedtime -Prednisone taper 30 mg PO day 3 -D/C Azithromycin after day 5 dose -Continuous pulse ox and maintain sat 88-92% (4) Anemia Current Visit: Yes Status: Acute Assessment and Plan: Macrocytic anemia -B12 and folate normal -Recent upper endoscopy and colonoscopy negative for any bleeding -Continue Xarelto for CVA prophylaxis -Hemoglobin stable at 8.9 today Plan -Monitor CBC (5) Atrial fibrillation with RVR Current Visit: Yes Status: Resolved Assessment and Plan: Patient with atrial fibrillation with rapid ventricular response; now controlled -Patient on Xarelto for stroke prophylaxis Plan -Telemetry - continue Cardizem CD 180 mg and metoprolol 25 mg twice a day (6) Phrenic nerve palsy Current Visit: Yes Status: Chronic Assessment and Plan: Patient with history of phrenic nerve palsy and has BiPAP at home this is likely contributing to her chronic respiratory failure and COPD exacerbations -Maintain BiPAP when necessary and daily at bedtime (7) AIMEE (obstructive sleep apnea) Current Visit: Yes Status: Chronic Assessment and Plan: BiPAP when necessary and daily at bedtime (8) Diabetes Current Visit: No Status: Chronic Assessment and Plan: Known history of T2DM BG elevated high 100's-300's on Levamir 40HS and medium dose insulin corrective scale On Januvia at home Plan -Increase to high dose corrective scale - Levamir increased to 45 HS (9) Morbid obesity Current Visit: Yes Status: Chronic Assessment and Plan: Encouraged dietary and lifestyle modifications. (10) DVT prophylaxis Current Visit: Yes Status: Acute Assessment and Plan: Xarelto (11) Acute kidney injury superimposed on chronic kidney disease Current Visit: Yes Status: Acute Assessment and Plan: Chronic kidney disease stage III with recent acute renal failure; now with acute kidney injury -Previously on Aldactone and Lasix and ARB and these were held at discharge -Patient Cr 1.41 today -Lasix was D/C due to lack of orthopnea with concern of rising creatinine Plan -Avoid nephrotoxins -Monitor intake and output - Time Spent with Patient Total time spent is greater than 50% in coordination of care (as documented) at patient's floor/unit and/or counseling patient: Internal Medicine: Result - Labs CBC & Chem 7: 05/23/18 04:30 05/23/18 04:30 Labs: Short CBC 05/23/18 Range/Units 04:30 WBC 6.9 (4.3-11.1) K/mcL Hgb 8.9 L (11.5-15.4) g/dL Hct 30.2 L (35.3-44.9) % Plt Count 156 (140-400) K/mcL Neutrophils # 5.7 (1.6-8.9) K/mcL BMP 05/23/18 04:30 Sodium 140 Potassium 4.8 Chloride 99 Carbon Dioxide 38 H BUN 53 H Creatinine 1.41 H Glucose 197 H Calcium 9.0 Consult Discharge Plan - Plan Referrals: Aayush Chase MD [Primary Care Provider] - <Luis Alfredo Yi - Last Filed: 05/23/18 16:26> Hospitalist Progress Note - Encounter Date of Encounter: 05/23/18 - Exam Vitals: Temp Pulse Resp BP Pulse Ox 98.1 F 79 16 122/76 97 05/23/18 11:00 05/23/18 11:00 05/23/18 11:00 05/23/18 11:00 05/23/18 08:21 - Assessment and Plan (1) Anemia Current Visit: Yes Status: Acute (2) Diabetes Current Visit: No Status: Chronic (3) Morbid obesity Current Visit: Yes Status: Chronic (4) Diastolic CHF Current Visit: Yes Status: Chronic (5) AIMEE (obstructive sleep apnea) Current Visit: Yes Status: Chronic (6) Acute and chronic respiratory failure Current Visit: Yes Status: Acute (7) Acute exacerbation of chronic obstructive airways disease Current Visit: Yes Status: Acute (8) Atrial fibrillation with RVR Current Visit: Yes Status: Resolved (9) Phrenic nerve palsy Current Visit: Yes Status: Chronic (10) DVT prophylaxis Current Visit: Yes Status: Acute (11) Acute kidney injury superimposed on chronic kidney disease Current Visit: Yes Status: Acute - Time Spent with Patient Total time spent is greater than 50% in coordination of care (as documented) at patient's floor/unit and/or counseling patient: Internal Medicine: Result - Labs CBC & Chem 7: 05/23/18 04:30 05/23/18 04:30 Labs: Short CBC 05/23/18 Range/Units 04:30 WBC 6.9 (4.3-11.1) K/mcL Hgb 8.9 L (11.5-15.4) g/dL Hct 30.2 L (35.3-44.9) % Plt Count 156 (140-400) K/mcL Neutrophils # 5.7 (1.6-8.9) K/mcL BMP 05/23/18 04:30 Sodium 140 Potassium 4.8 Chloride 99 Carbon Dioxide 38 H BUN 53 H Creatinine 1.41 H Glucose 197 H Calcium 9.0 - Attending Attestation I examined this patient and my medical decision-making was reviewed with the Resident Physician on 05/23/18. I agree with the documented findings, disposition and treatment plan as described except to the extent set forth below. Ms Cox is currently admitted for acute exac CHF. She is awaiting precert to SNF. She remains moderate risk. Ms Cox is feeling OK. She is sitting in her chair with feet up. No fever or chills. No cough. No GI issues. Exam Alert. Comfortable Mucus membranes dry Heart distant Lungs diminished Abd soft Edema present I/P 1. Exac CHF 2. COPD Awaiting precert. Further diagnoses and plan as above. <Larry Kincaid - Last Filed: 05/23/18 13:12> (1) Acute and chronic respiratory failure Qualifiers: Respiratory failure complication: hypoxia and hypercapnia Qualified Code(s): J96.21 - Acute and chronic respiratory failure with hypoxia; J96.22 - Acute and chronic respiratory failure with hypercapnia (2) Diastolic CHF Qualifiers: Heart failure chronicity: chronic Qualified Code(s): I50.32 - Chronic diastolic (congestive) heart failure (4) Anemia Qualifiers: Anemia type: iron deficiency Iron deficiency anemia type: chronic blood loss Qualified Code(s): 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 ( chronic) (8) Diabetes Qualifiers: Diabetes mellitus type: type 2 Diabetes mellitus supervisor intermediates insulin use: without chcf use Diabetes mellitus complication status: with kidney complications Diabetes mellitus complication detail: with chronic kidney disease Chronic kidney disease stage: stage 3 (moderate) Qualified Code(s): E11.22 - Type 2 diabetes mellitus with diabetic chronic kidney disease; N18.3 - Chronic kidney disease, stage 3 (moderate) <Luis Alfredo Yi - Last Filed: 05/23/18 16:26> (1) Anemia Qualifiers: Anemia type: iron deficiency Iron deficiency anemia type: chronic blood loss Qualified Code(s): 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 ( chronic) (2) Diabetes Qualifiers: Diabetes mellitus type: type 2 Diabetes mellitus chcf insulin use: without supervisor intermediates use Diabetes mellitus complication status: with kidney complications Diabetes mellitus complication detail: with chronic kidney disease Chronic kidney disease stage: stage 3 (moderate) Qualified Code(s): E11.22 - Type 2 diabetes mellitus with diabetic chronic kidney disease; N18.3 - Chronic kidney disease, stage 3 (moderate) (4) Diastolic CHF Qualifiers: Heart failure chronicity: chronic Qualified Code(s): I50.32 - Chronic diastolic (congestive) heart failure (6) Acute and chronic respiratory failure Qualifiers: Respiratory failure complication: hypoxia and hypercapnia Qualified Code(s): J96.21 - Acute and chronic respiratory failure with hypoxia; J96.22 - Acute and chronic respiratory failure with hypercapnia
[2018-05-23] MEDS ORDERED: *HR* Dextrose 50 % in Water (Syg) 50 ML SYRINGE IVP PRN (10:46)
[2018-05-23] MEDS ORDERED: D5% in Water 1,000 ML IVC PRN (10:46)
[2018-05-23] MEDS ORDERED: Dextrose Gel 15 GM/37.5 ML TUBE PO PRN ×2 (10:46)
[2018-05-23] MEDS ORDERED: Insulin DETEMIR 100 UNIT/ML X5UNITS SQ SCH (13:07)
[2018-05-23] MEDS: *HR* Rivaroxaban 10 MG TABLET PO SCH (17:02)
[2018-05-23] MEDS: Diltiazem CD (24hr) 180 MG CAPSULE PO SCH (17:02)
[2018-05-23] MEDS: Gabapentin 300 MG CAPSULE PO SCH (22:06)
[2018-05-23] MEDS: Acetaminophen 325 MG TABLET PO PRN (22:07)
[2018-05-24] MEDS: Nystatin POWDER 30 GM BOTTLE TP SCH ×2 (00:16→09:14)
[2018-05-24] MEDS: Latanoprost 2.5 ML BOTTLE BOTH EYES SCH (00:16)
[2018-05-24] MEDS: Ascorbic Acid 500 MG TABLET PO SCH (07:20)
[2018-05-24] MEDS: Azithromycin 250 MG TABLET PO SCH (09:11)
[2018-05-24] MEDS: Iron Polysaccharide Complex 150 MG CAPSULE PO SCH (09:12)
[2018-05-24] MEDS: predniSONE 10 MG TABLET PO SCH (09:12)
[2018-05-24] MEDS: Insulin LISPRO 300 UNITS/3 ML VIAL SQ SCH ×2 (09:12→12:17)
[2018-05-24] MEDS: Isosorbide MONOnitrate (24 HR) 30 MG TAB.ER.24H PO SCH (09:12)
[2018-05-24] MEDS: Artificial Tears SOLN 15 ML BOTTLE OP SCH (09:14)
--- NOTE | 2018-05-24 09:53 | Discharge Summary ---
<SanjivLarry Karthikeyan - Last Filed: 05/24/18 11:02> - NOTES TO OUTPATIENT PROVIDER Notes to Outpatient Provider: Patient reported to the ED on day after being discharged from the hospital for a COPD with underlying pneumonia. Received 7 day course of levaquin. Patient received cartizem in ED for a fib with RVR. CHF treated with lasix but was discontinued due to MARIFER. Date of Encounter: 05/24/18 Time of Encounter: 09:47 - Discharge Diagnosis (1) Acute and chronic respiratory failure Priority: Primary Status: Acute Assessment and Plan: Multifactorial due to current acute exacerbation of COPD with obstructive sleep apnea, pulmonary hypertension, and phrenic nerve palsy, and diastolic congestive heart failure -BiPAP daily at bedtime and when necessary -Lasix discontinued last dose 05/21/18 due to MARIFER Plan -Continue duo nebs -Wean steroids to 30 mg of prednisone day 4 today, change to to 20 mg tomorrpw continue for 4 days, -Maintain sat of 88-92% Qualifiers: Respiratory failure complication: hypoxia and hypercapnia Qualified Code(s) : J96.21 - Acute and chronic respiratory failure with hypoxia; J96.22 - Acute and chronic respiratory failure with hypercapnia (2) Diastolic CHF Priority: Primary Status: Chronic Assessment and Plan: Patient with history of chronic heart failure with preserved ejection fraction/ diastolic dysfunction -Last EF is 50-55% in April 2018 -Patient has small pericardial effusion on last echocardiogram that was confirmed with bedside ultrasound and emergency department today per ER note with no evidence of tamponade -Patient has elevated BNP on admission significant lower extremity edema however denies orthopnea -Patient previously on Aldactone and Lasix; this was held however due to recent severe acute kidney injury -Patient report significant improvement today Plan -Daily intake and output and daily weights -Monitor for symptomatic decline Qualifiers: Heart failure chronicity: chronic Qualified Code(s): I50.32 - Chronic diastolic (congestive) heart failure (3) Acute exacerbation of chronic obstructive airways disease Priority: Primary Status: Acute Assessment and Plan: Patient with acute exacerbation of COPD -Finished seven-day course of Levaquin on 05/19/18 -Azithromycin day 5 -Duonebs are PRN Plan -Maintain BiPAP when necessary and daily at bedtime -Prednisone taper 30 mg PO day 4,20 mg tomorrow for 4 days -Azithromycin D/Dinesh -Continuous pulse ox and maintain sat 88-92% (4) Anemia Priority: Secondary Status: Acute Assessment and Plan: Macrocytic anemia -B12 and folate normal -Recent upper endoscopy and colonoscopy negative for any bleeding -Continue Xarelto for CVA prophylaxis -Hemoglobin stable at 8.9 today Plan -Monitor CBC Qualifiers: Anemia type: iron deficiency Iron deficiency anemia type: chronic blood loss Qualified Code(s): 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 (chronic) (5) Atrial fibrillation with RVR Priority: Secondary Status: Resolved Assessment and Plan: Patient with atrial fibrillation with rapid ventricular response; now controlled -Patient on Xarelto for stroke prophylaxis Plan -Telemetry - continue Cardizem CD 180 mg and metoprolol 25 mg twice a day (6) 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 Assessment and Plan: Patient with history of phrenic nerve palsy and has BiPAP at home this is likely contributing to her chronic respiratory failure and COPD exacerbations -Maintain BiPAP when necessary and daily at bedtime (7) Acute kidney injury superimposed on chronic kidney disease Priority: Secondary Status: Acute Assessment and Plan: Chronic kidney disease stage III with recent acute renal failure; now with acute kidney injury -Previously on Aldactone and Lasix and ARB and these were held at discharge -Patient Cr 1.41 today -Lasix was D/C due to lack of orthopnea with concern of rising creatinine Plan -Avoid nephrotoxins -Monitor intake and output (8) AIMEE (obstructive sleep apnea) Priority: Secondary Status: Chronic Assessment and Plan: BiPAP when necessary and daily at bedtime (9) Diabetes Priority: Secondary Status: Chronic Assessment and Plan: Known history of T2DM increased insulin yesterday, BG still elevated on Levamir 40HS and medium dose insulin corrective scale On Januvia at home Plan -Increase to high dose corrective scale - Levamir increased to 45 HS Qualifiers: Diabetes mellitus type: type 2 Diabetes mellitus manager intermediate insulin use: without manager intermediate use Diabetes mellitus complication status: with kidney complications Diabetes mellitus complication detail: with chronic kidney disease Chronic kidney disease stage: stage 3 (moderate) Qualified Code(s): E11.22 - Type 2 diabetes mellitus with diabetic chronic kidney disease; N18.3 - Chronic kidney disease, stage 3 (moderate) (10) Morbid obesity Priority: Secondary Status: Chronic Assessment and Plan: Encouraged dietary and lifestyle modifications. (11) DVT prophylaxis Priority: Secondary Status: Acute Assessment and Plan: [facility] course: Ms. Cox is a 62 year old female with a past medical history of who presented to the ED complaining of SOB on 05/19/18. Patient received CXR that showed low lung volumes and possible small left pleural effusion. Patient received breathing treatment. The patient also had a fib with RVR and received Cardizem patient was also on metoprolol during her stay. The patient was discharged from the hospital the day before for COPD exacerbation and pnuemonia. Patient was given levaquin from her previous admission and received a dose on admission to complete her 7 day course. Patient was given a 5 day course of azithromycin. She was placed on steriods. Currently day 6 with 2 days of IV solu-medrol 40 mg q8 and now day 4 of prednisone 30 mg PO qd. Signinficant improvement clinically over the past 2 days. awaiting placement at [facility] for continue management. - Time Spent with Patient Total time spent providing and/or coordinating discharge services: - Discharge Medications Prescriptions: predniSONE [PredniSONE] See Taper PO BIDWM #6 tablet Home Medications: Latanoprost [Xalatan] 1 drop BOTH EYES HS 04/06/16 [History] SitaGLIPtin [Januvia] 100 mg PO DAILY 04/06/16 [History] Albuterol Sulfate [Albuterol Inhaler] 2 puff IH Q4H PRN 04/14/17 [History] Citalopram Hydrobromide [Citalopram HBr] 40 mg PO HS 04/14/17 [History] Docusate [Colace] 100 mg PO DAILY 04/14/17 [History] Gabapentin [Neurontin] 600 mg PO HS 04/14/17 [History] Brimonidine 0.2% [Alphagan] 1 drop BOTH EYES BID 12/19/17 [History] Propylene Glycol/Peg 400 [Systane Ultra 0.4-0.3% Eye Drp] 1 drop OP QID [History] Ipratropium/Albuterol Neb [Duoneb] 3 ml IH [id number] PRN inhsol 01/18/18 [Rx] Iron Polysaccharide Complex [Ferrex 150] 150 mg PO DAILY capsule 01/18/18 [Rx] Ascorbic Acid [Vitamin C] 500 mg PO 0630 #30 tablet 01/25/18 [Rx] Isosorbide MONOnitrate (24 HR) [Imdur] 30 mg PO DAILY #30 tab.er.24h 01/25/18 [ Rx] Esomeprazole Magnesium [Nexium] 40 mg PO DAILY 03/29/18 [History] Ibandronate Sodium [Boniva] 150 mg PO QMONTH 03/29/18 [History] Atorvastatin [Lipitor] 20 mg PO HS #30 tablet 05/03/18 [Rx] Insulin DETEMIR [Levemir Flextouch] 40 unit SQ HS #12 insuln.pen 05/03/18 [Rx] Rivaroxaban [Xarelto] 20 mg PO 1700 #30 tablet 05/03/18 [Rx] Diltiazem CD (24hr) [Cardizem CD] 180 mg PO DAILY #30 cap.er.24h 05/18/18 [Rx] predniSONE [PredniSONE] See Taper PO BIDWM #6 tablet 05/24/18 [Rx] Allergies/Adverse Reactions: 3 Allergy/AdvReac Type Severity Reaction Status Date / Time hydrocodone [From Vicodin] AdvReac Nausea Verified 05/13/18 10:46 Hydromorphone [From Dilaudid] AdvReac Nausea Verified 05/13/18 10:46 Date of admission: 05/19/18 14:39 Primary care physician: Aayush Chase MD Consults: 05/19/18 15:44 Consult to Nurse Navigator [CONS] Routine Comment: 05/19/18 18:19 Consult to Enterprise Systems Manager [CONS] Routine Reason for SW Consult: Pt states she needs more care at home, may want to switch HH companies, has [facility], unable to care for self/give self meds at home. Only home one day after d/c, then readmitted again. Pt has home O2 at 4L and home bipap through [employer]. 05/20/18 08:55 Consult to Physical Therapy [CONS] Routine Comment: Evaluate, develop and implement POC Reason for Consult: deconditoning; needs ECF placement Does patient have active BEDREST order?: No Is patient medically & hemodynamically stable?: Yes OT [Consult to Occupational Therapy] [CONS] Routine Comment: Evaluate, develop and implement POC Reason for Consult: deconditoning; needs ECF placement Does patient have active BEDREST order?: No Is patient medically & hemodynamically stable?: Yes Discharging clinician: Larry Kincaid Anticipated date of discharge: 05/24/18 - Constitutional Vitals: Temp Pulse Resp BP Pulse Ox 97.7 F 80 21 122/62 94 05/24/18 07:15 05/24/18 07:15 05/24/18 07:15 05/24/18 07:15 05/24/18 07:15 General appearance: Present: A&O X 3, morbidly obese, no acute distress, answers questions appropriately - Head Head exam: Present: atraumatic, normocephalic - Eye Eye exam: Present: EOMI, PERRL - ENT ENT exam: Present: mucous membranes moist - Respiratory Respiratory exam: Present: CTAB, rales, respiratory distress, wheezes. Absent: stridor - Cardiovascular Cardiovascular exam: Present: RRR, +S1, +S2. Absent: +S3, +S4 - Extremities Exam Extremities exam: Present: pedal edema, warm. Absent: radial pulses palpable and symmetrical - Neurological Exam Neurological exam: Present: alert, CN II-XII intact, oriented X3, no focal deficits - Psychiatric Psychiatric exam: Present: normal affect, normal mood - Skin Skin exam: Present: dry, intact, warm - Patient Status Disposition: Transfer SNF Condition: Fair Overall status at discharge: patient is back to baseline - Discharge Instructions Instructions: Prednisone (By mouth), Heart Failure (DC), Atrial Fibrillation ( DC), Acute Respiratory Distress Syndrome (DC), Urinary Tract Infection in Women (DC), Diabetes Mellitus Type 2 in Adults (DC), Chronic Obstructive Pulmonary Disease (DC), Anemia (GEN), Pneumonia (DC) Follow Up With: Aayush Chase MD [Primary Care Provider] - - Diet and Activity Activity: increase activity as tolerated Diet: diabetic diet <Luis Alfredo Yi - Last Filed: 05/24/18 18:58> Date of Encounter: 05/24/18 - Discharge Diagnosis (1) Anemia Status: Chronic Qualifiers: Anemia type: iron deficiency Iron deficiency anemia type: chronic blood loss Qualified Code(s): 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 (chronic) (2) Diabetes Status: Chronic Qualifiers: Diabetes mellitus type: type 2 Diabetes mellitus manager intermediate insulin use: without fci use Diabetes mellitus complication status: with kidney complications Diabetes mellitus complication detail: with chronic kidney disease Chronic kidney disease stage: stage 3 (moderate) Qualified Code(s): E11.22 - Type 2 diabetes mellitus with diabetic chronic kidney disease; N18.3 - Chronic kidney disease, stage 3 (moderate) (3) Morbid obesity Status: Chronic (4) Diastolic CHF Priority: Secondary Status: Chronic Qualifiers: Heart failure chronicity: chronic Qualified Code(s): I50.32 - Chronic diastolic (congestive) heart failure (5) AIMEE (obstructive sleep apnea) Status: Chronic (6) Acute and chronic respiratory failure Status: Acute Qualifiers: Respiratory failure complication: hypoxia and hypercapnia Qualified Code(s) : J96.21 - Acute and chronic respiratory failure with hypoxia; J96.22 - Acute and chronic respiratory failure with hypercapnia (7) Acute exacerbation of chronic obstructive airways disease Priority: Secondary Status: Resolved (8) Atrial fibrillation with RVR Status: Resolved (9) Phrenic nerve palsy Status: Chronic (10) Acute kidney injury superimposed on chronic kidney disease Status: Acute Hospital course: Ms. Cox is a 62 year old female - Time Spent with Patient Total time spent providing and/or coordinating discharge services: Date of admission: 05/19/18 14:39 Primary care physician: Aayush Chase MD Consults: 05/19/18 15:44 Consult to Nurse Navigator [CONS] Routine Comment: 05/19/18 18:19 Consult to Enterprise Systems Manager [CONS] Routine Reason for SW Consult: Pt states she needs more care at home, may want to switch HH companies, has [facility], unable to care for self/give self meds at home. Only home one day after d/c, then readmitted again. Pt has home O2 at 4L and home bipap through [employer]. 05/20/18 08:55 Consult to Physical Therapy [CONS] Routine Comment: Evaluate, develop and implement POC Reason for Consult: deconditoning; needs ECF placement Does patient have active BEDREST order?: No Is patient medically & hemodynamically stable?: Yes OT [Consult to Occupational Therapy] [CONS] Routine Comment: Evaluate, develop and implement POC Reason for Consult: deconditoning; needs ECF placement Does patient have active BEDREST order?: No Is patient medically & hemodynamically stable?: Yes - Constitutional Vitals: Temp Pulse Resp BP Pulse Ox 98 F 79 18 115/85 99 05/24/18 10:56 05/24/18 10:56 05/24/18 11:01 05/24/18 10:56 05/24/18 11:01 - Attending Attestation I examined this patient and my medical decision-making was reviewed with the Resident Physician on 05/24/18. I agree with the documented findings, disposition and treatment plan as described except to the extent set forth below. Ms Cox has been hospitalized for acute exac CHF and COPD. She has improved with treatment and is afebrile. She is ready for discharge to SNF. Exam Alert Comfortable Mucus membranes dry Heart distant and not tachy No wheeze abd soft Edema present Plan D/C today.
[2018-05-24 11:00] VITALS: BP 115/85
[2018-05-24] MEDS: Budesonide/Formoterol 160/4.5 1 PUFF INH IH SCH (11:00)
--- NOTE | 2018-05-24 13:36 | Physician Discharge Referral ---
ExtendedCare Referral Info Provider in Charge after Transfer: PCP Institutional Level of Care: Skilled - Diagnosis (1) Anemia Priority: Secondary Status: Chronic (2) Diabetes Priority: Secondary Status: Chronic (3) Morbid obesity Priority: Secondary Status: Chronic (4) Diastolic CHF Priority: Primary Status: Chronic (5) AIMEE (obstructive sleep apnea) Priority: Secondary Status: Chronic (6) Acute and chronic respiratory failure Priority: Primary Status: Acute (7) Acute exacerbation of chronic obstructive airways disease Priority: Primary Status: Resolved (8) Atrial fibrillation with RVR Priority: Secondary Status: Resolved (9) 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 (10) Acute kidney injury superimposed on chronic kidney disease Priority: Secondary Status: Acute Prognosis: Fair Aware of Diagnosis: Patient Aware of Prognosis: Patient - Transfer Medications Prescriptions: predniSONE [PredniSONE] See Taper PO BIDWM #6 tablet Home Medications: Latanoprost [Xalatan] 1 drop BOTH EYES HS 04/06/16 [History] SitaGLIPtin [Januvia] 100 mg PO DAILY 04/06/16 [History] Albuterol Sulfate [Albuterol Inhaler] 2 puff IH Q4H PRN 04/14/17 [History] Citalopram Hydrobromide [Citalopram HBr] 40 mg PO HS 04/14/17 [History] Docusate [Colace] 100 mg PO DAILY 04/14/17 [History] Gabapentin [Neurontin] 600 mg PO HS 04/14/17 [History] Brimonidine 0.2% [Alphagan] 1 drop BOTH EYES BID 12/19/17 [History] Propylene Glycol/Peg 400 [Systane Ultra 0.4-0.3% Eye Drp] 1 drop OP QID [History] Ipratropium/Albuterol Neb [Duoneb] 3 ml IH [id number] PRN inhsol 01/18/18 [Rx] Iron Polysaccharide Complex [Ferrex 150] 150 mg PO DAILY capsule 01/18/18 [Rx] Ascorbic Acid [Vitamin C] 500 mg PO 0630 #30 tablet 01/25/18 [Rx] Isosorbide MONOnitrate (24 HR) [Imdur] 30 mg PO DAILY #30 tab.er.24h 01/25/18 [ Rx] Esomeprazole Magnesium [Nexium] 40 mg PO DAILY 03/29/18 [History] Ibandronate Sodium [Boniva] 150 mg PO QMONTH 03/29/18 [History] Atorvastatin [Lipitor] 20 mg PO HS #30 tablet 05/03/18 [Rx] Insulin DETEMIR [Levemir Flextouch] 40 unit SQ HS #12 insuln.pen 05/03/18 [Rx] Rivaroxaban [Xarelto] 20 mg PO 1700 #30 tablet 05/03/18 [Rx] Diltiazem CD (24hr) [Cardizem CD] 180 mg PO DAILY #30 cap.er.24h 05/18/18 [Rx] predniSONE [PredniSONE] See Taper PO BIDWM #6 tablet 05/24/18 [Rx] Allergies/Adverse Reactions: 3 Allergy/AdvReac Type Severity Reaction Status Date / Time hydrocodone [From Vicodin] AdvReac Nausea Verified 05/13/18 10:46 Hydromorphone [From Dilaudid] AdvReac Nausea Verified 05/13/18 10:46 - Respiratory Orders Oxygen / L per min (Maintain saturation greater than 88%) Smoking Cessation: Smoking cessation has been advised. For more information, call the [place] Tobacco Quit Line at 6-344-DEQI-NOW. - Lab Orders Lab Orders: 2 Step Mantoux Test per State regulation, CBC, [place] 17 - Ancillary Orders May use pressure relief devices daily prn, May consult with Dentist, Dental Services Director, Director Emergency Services PRN - Advance Directives Code Status: Full Code - Mobility Orders Chair, Ambulate - Rehabiliation Orders Rehab Potential: Fair Rehab Orders: Evaluation for Physical Therapy, Evaluation for Occupational Therapy - Treatments Skin tear care topically daily PRN per policy, May check for fecal impaction rectally daily PRN, Fleet enema rectally every other day PRN cleansing purposes - Diet Orders No Concentrated Sweets, Cardiac CERTIFICATION: I certify that the transfer of the above named patient to an Extended Care Facility is necessary for the continuing treatment of the diagnosis listed. The above information is true and accurate reflection of patient's current condition. Confidential - Redisclosure prohibited without a patient's written consent.
[2018-05-25] MEDS ORDERED: predniSONE 20 MG TABLET PO SCH (09:00)
== END 2018-05-24 15:06 ==
LOC: EMEROO 11:30 → 2NENU 11:30 → SUATTDRO 14:39 → 2NENU 16:18
PROVIDERS: ADMIT Internal Medicine; ATTEND Internal Medicine

== ENCOUNTER 2018-06-06 17:06 | Inpatient (IN) ==
[2018-06-06] MEDS ORDERED: Ipratropium/Albuterol Neb 3 ML IH ONE (17:21)
--- NOTE | 2018-06-06 17:24 | Emergency Department Note ---
Disposition Clinical Impression: COPD exacerbation CHF exacerbation Qualifiers: Heart failure type: unspecified Qualified Code(s): I50.9 - Heart failure, unspecified Disposition: Admitted As Inpatient Condition: Critical SOB HPI - General Chief Complaint: ED Shortness of Breath/Dyspnea Stated Complaint: [place] Source: patient, EMS Mode of arrival: EMS Limitations: no limitations Nursing Notes Reviewed: Yes Vital Signs Reviewed: Yes - History of Present Illness Patient was discharged from [facility] where she was after rehabilitation yesterday. Patient was receiving Lasix every day. They are concerned about her kidney function. She was discharged without Lasix. Shortness of breath started earlier today and has been progressively worse in nature. She has a history of CHF and COPD. Patient has A. fib. Patient has obvious swelling to the lower extremities. +3 pitting edema up to the thigh. Patient has heart rate of 124. Blood pressure is 94 systolic. Patient has complaints of dysuria as well. Possible infectious component. Respiratory has been called place patient on BiPAP. With her lung exam she does have more Rales throughout however we will give her some do nebs secondary to the severity of her respiratory distress. We will hold fluids at this time as she is fluid overloaded. Patient will undergo further laboratory and radiographic evaluation. - Related Data Home Medications Medication Instructions Recorded Confirmed Latanoprost [Xalatan] 1 drop BOTH EYES HS 04/06/16 06/06/18 SitaGLIPtin [Januvia] 100 mg PO DAILY 04/06/16 06/06/18 Albuterol Sulfate [Albuterol 2 puff IH Q4H PRN 04/14/17 06/06/18 Inhaler] Citalopram Hydrobromide 40 mg PO HS 04/14/17 06/06/18 [Citalopram HBr] Docusate [Colace] 100 mg PO DAILY 04/14/17 06/06/18 Gabapentin [Neurontin] 600 mg PO HS 04/14/17 06/06/18 Brimonidine 0.2% [Alphagan] 1 drop BOTH EYES BID 12/19/17 06/06/18 Propylene Glycol/Peg 400 [Systane 1 drop OP QID 12/19/17 06/06/18 Ultra 0.4-0.3% Eye Drp] Esomeprazole Magnesium [Nexium] 40 mg PO DAILY 03/29/18 06/06/18 Ibandronate Sodium [Boniva] 150 mg PO QMONTH 03/29/18 06/06/18 Rivaroxaban [Xarelto] 20 mg PO 1700 06/06/18 06/06/18 Simvastatin [Zocor] 40 mg PO HS 06/06/18 06/06/18 Previous Rx's Medication Instructions Recorded Ipratropium/Albuterol Neb [Duoneb] 3 ml IH [id number] PRN inhsol 01/18/18 Iron Polysaccharide Complex 150 mg PO DAILY capsule 01/18/18 [Ferrex 150] Ascorbic Acid [Vitamin C] 500 mg PO 0630 #30 tablet 01/25/18 Isosorbide MONOnitrate (24 HR) 30 mg PO DAILY #30 tab.er.24h 01/25/18 [Imdur] Insulin DETEMIR [Levemir Flextouch] 40 unit SQ HS #12 insuln.pen 05/03/18 Diltiazem CD (24hr) [Cardizem CD] 180 mg PO DAILY #30 cap.er.24h 05/18/18 Allergies Allergy/AdvReac Type Severity Reaction Status Date / Time hydrocodone [From Vicodin] AdvReac Nausea Verified 05/13/18 10:46 Hydromorphone [From Dilaudid] AdvReac Nausea Verified 05/13/18 10:46 Review of Systems: Review of systems Limited secondary to patient condition. Patient does note to respiratory distress, weight gain, fluid retention, dysuria. Past Medical History - Past Medical History Medical history: Reports: atrial fibrillation, CHF, COPD, diabetes, fibromyalgia , hyperlipidemia, hypertension Surgical history: Reports: no surgical history Psychiatric history: Reports: anxiety, depression - Social History Smoking Status: Never smoker Smokeless Tobacco Status: No Alcohol use: Reports: none Drug use: Reports: none Physical Exam General: Moderate respiratory distress Head: Normocephalic Atraumatic Eyes: PERRL, EOMI ENT: Airway patent, no stridor Neck: supple, no meningismus Chest: Rales throughout Cardiac: Irregular rate and rhythm Abdomen: soft, nontender, nondistended; no guarding, rebound, or tenderness to percussion Musculoskeletal: +3 pitting edema throughout the legs. Skin: Adilia infection under bilateral breasts Neuro: Alert and Oriented to person, place, and time - General General appearance: lethargic, in distress Course - Reevaluation(s) Reevaluation #1: Patient reevaluated and opens her eyes to painful stimuli but is otherwise decreased responsiveness. The setting of her blood gas [place] concern for worsening condition and she did present to the emergency department complaining of being fatigued. Family is at bedside. They do want intubation if deemed appropriate. The patient will be taken to the trauma room and intubated for respiratory support. - Consultations Consultation #1: Discussed with Hospitalist. Pt accepted for admission. Vital Signs Temperature 98.3 F 06/06/18 17:07 Pulse Rate 77 06/06/18 17:07 Respiratory Rate 28 06/06/18 17:07 Blood Pressure 94/71 06/06/18 17:07 O2 Sat by Pulse Oximetry 99 06/06/18 17:07 Temperature 98.3 F 06/06/18 19:42 Pulse Rate 123 06/06/18 20:03 Respiratory Rate 16 06/06/18 21:20 Blood Pressure 128/84 06/06/18 21:20 O2 Sat by Pulse Oximetry 100 06/06/18 21:20 Oxygen Delivery Oxygen Delivery Ventilator Procedures - Intubation Time out performed: Yes sedative: Etomidate Mg Given: 20 paralytic: Succinylcholine Mg Given: 120 Laryngoscope: fiber optic video scope ET Tube Size: 7.5 ET Tube Uncuffed: Yes Tube Secured Depth (cm): 22 Tube Secured Location: lips Tube Placement Confirmation: visualized tube passing through cords, equal breath sounds bilaterally, no breath sounds over epigastrium, confirmation by capnometry Patient Tolerated Procedure: well Intubation Complications: none Shortness of Breath/Dyspnea - Medical Records Medical records reviewed: Yes I reviewed the patient's medical records. - Lab Data Lab results reviewed: Yes I reviewed the patient's lab results. Result diagrams: 06/06/18 18:09 06/06/18 17:26 Lab Results 06/06/18 06/06/18 06/06/18 Range/Units 17:26 17:26 17:26 WBC (4.3-11.1) K/mcL RBC (3.82-4.97) M/mcL Hgb (11.5-15.4) g/dL Hct (35.3-44.9) % MCV (83.0-100.0) fL MCH (28.0-33.3) pg MCHC (31.6-35.5) g/dL RDW (11.5-14.5) % Plt Count (140-400) K/mcL MPV (9.4-12.4) fL Immature Gran % (0-4) % Seg Neutrophils % % Lymphocytes % % Monocytes % % Eosinophils % % Basophils % % Neutrophils # (1.6-8.9) K/mcL Lymphocytes # (0.6-4.6) K/mcL Monocytes # (0.0-1.3) K/mcL Eosinophils # (0.0-0.6) K/mcL Basophils # (0.0-0.2) K/mcL Platelet Estimate (Normal) Polychromasia (Not Present) Hypochromasia (Not Present) Stomatocytes (Not Present) PT 13.6 H (9.4-12.1) Seconds INR 1.2 VBG pH (7.32-7.42) pH Units VBG pCO2 (41-51) mmHg VBG pO2 (25-50) mmHg VBG HCO3 (21-27) mEq/L Sodium 139 (136-145) mEq/L Potassium 5.1 (3.5-5.1) mEq/L Chloride 94 L (98-107) mEq/L Carbon Dioxide 39 H (23-29) mEq/L BUN 39 H (8-23) mg/dL Creatinine 1.55 H (0.60-1.20) mg/dL Est GFR ( Amer) 41 L (> 60) Est GFR (Non-Af Amer) 34 L (> 60) BUN/Creatinine Ratio 25 (6-26) Glucose 165 H (70-105) mg/dL Calculated Osmolality 301 H (280-300) Lactic Acid 0.6 (0.5-2.2) mmol/L Calcium 8.5 L (8.6-10.3) mg/dL Magnesium 2.9 H (1.6-2.6) mg/dL Troponin I 0.03 (< 0.04) ng/mL B-Natriuretic Peptide (Less than 100) pg/mL Urine Color (Yellow) Urine Clarity (Clear) Urine pH (5.0-8.0) pH Units Ur Specific [place] (1.010-1.025) Urine Protein (Neg-Trace) mg/dL Urine Glucose (UA) (Normal) mg/dL Urine Ketones (Negative) mg/dL Urine Blood (Negative) Urine Nitrite (Negative) Urine Bilirubin (Negative) Urine Urobilinogen (Normal) mg/dL Ur Leukocyte Esterase (Negative) Urine Microscopic RBC (0-3) per hpf Urine Microscopic WBC (0-3) per hpf Ur Squamous Epith Cells (None-Few) per lpf Urine Bacteria (None-Few) per hpf Hyaline Casts (None-Few) per lpf Ur Culture Indicated? (NO) Specimen Rejected Person Notif of Crit 06/06/18 06/06/18 06/06/18 Range/Units 17:26 17:26 17:54 WBC (4.3-11.1) K/mcL RBC (3.82-4.97) M/mcL Hgb (11.5-15.4) g/dL Hct (35.3-44.9) % MCV (83.0-100.0) fL MCH (28.0-33.3) pg MCHC (31.6-35.5) g/dL RDW (11.5-14.5) % Plt Count (140-400) K/mcL MPV (9.4-12.4) fL Immature Gran % (0-4) % Seg Neutrophils % % Lymphocytes % % Monocytes % % Eosinophils % % Basophils % % Neutrophils # (1.6-8.9) K/mcL Lymphocytes # (0.6-4.6) K/mcL Monocytes # (0.0-1.3) K/mcL Eosinophils # (0.0-0.6) K/mcL Basophils # (0.0-0.2) K/mcL Platelet Estimate (Normal) Polychromasia (Not Present) Hypochromasia (Not Present) Stomatocytes (Not Present) PT (9.4-12.1) Seconds INR VBG pH 7.13 L* (7.32-7.42) pH Units VBG pCO2 131 H* (41-51) mmHg VBG pO2 61 H (25-50) mmHg VBG HCO3 44 H (21-27) mEq/L Sodium (136-145) mEq/L Potassium (3.5-5.1) mEq/L Chloride (98-107) mEq/L Carbon Dioxide (23-29) mEq/L BUN (8-23) mg/dL Creatinine (0.60-1.20) mg/dL Est GFR ( Amer) (> 60) Est GFR (Non-Af Amer) (> 60) BUN/Creatinine Ratio (6-26) Glucose (70-105) mg/dL Calculated Osmolality (280-300) Lactic Acid (0.5-2.2) mmol/L Calcium (8.6-10.3) mg/dL Magnesium (1.6-2.6) mg/dL Troponin I (< 0.04) ng/mL B-Natriuretic Peptide 581 H (Less than 100) pg/mL Urine Color (Yellow) Urine Clarity (Clear) Urine pH (5.0-8.0) pH Units Ur Specific [place] (1.010-1.025) Urine Protein (Neg-Trace) mg/dL Urine Glucose (UA) (Normal) mg/dL Urine Ketones (Negative) mg/dL Urine Blood (Negative) Urine Nitrite (Negative) Urine Bilirubin (Negative) Urine Urobilinogen (Normal) mg/dL Ur Leukocyte Esterase (Negative) Urine Microscopic RBC (0-3) per hpf Urine Microscopic WBC (0-3) per hpf Ur Squamous Epith Cells (None-Few) per lpf Urine Bacteria (None-Few) per hpf Hyaline Casts (None-Few) per lpf Ur Culture Indicated? (NO) Specimen Rejected MCV [place] Person Notif of Miles TWIN ARAUJO 06/06/18 06/06/18 Range/Units 18:09 18:22 WBC 9.9 (4.3-11.1) K/mcL RBC 3.01 L (3.82-4.97) M/mcL Hgb 8.6 L (11.5-15.4) g/dL Hct 31.0 L (35.3-44.9) % MCV 103.0 H (83.0-100.0) fL MCH 28.6 (28.0-33.3) pg MCHC 27.7 L (31.6-35.5) g/dL RDW 14.9 H (11.5-14.5) % Plt Count 181 (140-400) K/mcL MPV 12.0 (9.4-12.4) fL Immature Gran % 0.3 (0-4) % Seg Neutrophils % 81.7 % Lymphocytes % 4.7 % Monocytes % 13.2 % Eosinophils % 0.0 % Basophils % 0.1 % Neutrophils # 8.1 (1.6-8.9) K/mcL Lymphocytes # 0.5 L (0.6-4.6) K/mcL Monocytes # 1.3 (0.0-1.3) K/mcL Eosinophils # 0.0 (0.0-0.6) K/mcL Basophils # 0.0 (0.0-0.2) K/mcL Platelet Estimate Normal (Normal) Polychromasia 1+ A (Not Present) Hypochromasia Present A (Not Present) Stomatocytes 2+ A (Not Present) PT (9.4-12.1) Seconds INR VBG pH (7.32-7.42) pH Units VBG pCO2 (41-51) mmHg VBG pO2 (25-50) mmHg VBG HCO3 (21-27) mEq/L Sodium (136-145) mEq/L Potassium (3.5-5.1) mEq/L Chloride (98-107) mEq/L Carbon Dioxide (23-29) mEq/L BUN (8-23) mg/dL Creatinine (0.60-1.20) mg/dL Est GFR ( Amer) (> 60) Est GFR (Non-Af Amer) (> 60) BUN/Creatinine Ratio (6-26) Glucose (70-105) mg/dL Calculated Osmolality (280-300) Lactic Acid (0.5-2.2) mmol/L Calcium (8.6-10.3) mg/dL Magnesium (1.6-2.6) mg/dL Troponin I (< 0.04) ng/mL B-Natriuretic Peptide (Less than 100) pg/mL Urine Color Yellow (Yellow) Urine Clarity Turbid A (Clear) Urine pH 6.0 (5.0-8.0) pH Units Ur Specific [place] 1.011 (1.010-1.025) Urine Protein 100 H (Neg-Trace) mg/dL Urine Glucose (UA) Normal (Normal) mg/dL Urine Ketones Negative (Negative) mg/dL Urine Blood Large H (Negative) Urine Nitrite Negative (Negative) Urine Bilirubin Negative (Negative) Urine Urobilinogen Normal (Normal) mg/dL Ur Leukocyte Esterase Large H (Negative) Urine Microscopic RBC TNTC H (0-3) per hpf Urine Microscopic WBC TNTC H (0-3) per hpf Ur Squamous Epith Cells Many H (None-Few) per lpf Urine Bacteria Many H (None-Few) per hpf Hyaline Casts None Seen (None-Few) per lpf Ur Culture Indicated? NO. A (NO) Specimen Rejected Person Notif of Crit - Radiology Data Radiology results reviewed: Yes I reviewed the patient's radiology results. - EKG Data EKG attestation: Yes I reviewed and interpreted this EKG. EKG results narrative: EKG shows atrial fibrillation with rate of 126. QRS 87. QTC 530.
[2018-06-06 17:57] LABS: INR 1.2; Prothrombin Time 13.6 Seconds (9.4-12.1)
[2018-06-06 18:07] LABS: VBG HCO3 44 mEq/L (21-27); VBG PCO2 131 mmHg (41-51); VBG PH 7.13 pH Units (7.32-7.42); VBG PO2 61 mmHg (25-50)
[2018-06-06 18:17] LABS: Calcium 8.5 mg/dL (8.6-10.3); Magnesium 2.9 mg/dL (1.6-2.6); Potassium 5.1 mEq/L (3.5-5.1); Troponin I 0.03 ng/mL (< 0.04)
[2018-06-06 18:23] LABS: Basophils % 0.1 %; Mean Corpuscular HGB Conc 27.7 g/dL (31.6-35.5)
[2018-06-06 18:25] LABS: Hemoglobin 8.6 g/dL (11.5-15.4); Immature Granulocytes % 0.3 % (0-4); Lymphocytes # 0.5 K/mcL (0.6-4.6); Lymphocytes % 4.7 %; Mean Corpuscular Hemoglobin 28.6 pg (28.0-33.3); Monocytes # 1.3 K/mcL (0.0-1.3); Monocytes % 13.2 %; Neutrophils # 8.1 K/mcL (1.6-8.9); Platelet Count 181 K/mcL (140-400); Red Blood Count 3.01 M/mcL (3.82-4.97); Red Cell Distribution Width 14.9 % (11.5-14.5); Segmented Neutrophils % 81.7 %
[2018-06-06] MEDS ORDERED: Furosemide 40 MG/4 ML VIAL IVP ONE (18:33)
[2018-06-06] MEDS ORDERED: methylPREDNISolone 125 MG/2 ML VIAL IVP ONE (18:33)
[2018-06-06 18:38] LABS: Bilirubin,Urine Negative (Negative); Blood,Urine Large (Negative); Clarity,Urine Turbid (Clear); Color,Urine Yellow (Yellow); Glucose,Urine (UA) Normal (Normal); Ketones,Urine Negative (Negative); Leukocyte Esterase,Urine Large (Negative); Nitrite,Urine Negative (Negative); Protein,Urine 100 mg/dL (Neg-Trace); Specific Gravity,Urine 1.011 (1.010-1.025); Urobilinogen,Urine Normal (Normal)
[2018-06-06 18:40] LABS: Bacteria,Urine Many per hpf (None-Few); Hyaline Casts,Urine None Seen per lpf (None-Few); RBC,Urine TNTC per hpf (0-3); Squamous Epithelial Cell,Urine Many per lpf (None-Few); WBC,Urine TNTC per hpf (0-3)
[2018-06-06] MEDS ORDERED: Dexamethasone 10 MG/ML VIAL PO ONE (18:56)
[2018-06-06] MEDS ORDERED: *HR* Succinylcholine 200 MG/10 ML VIAL IVP ONE (19:14)
[2018-06-06] MEDS ORDERED: *HR* Etomidate 20 MG/10 ML AMPUL IVP ONE (19:14)
[2018-06-06] MEDS ORDERED: Piperacillin/Tazobactam 3.375 GM in Water for inj. (sterile) 20 ML 20 ML IVP ONE (19:15)
[2018-06-06] MEDS ORDERED: Levofloxacin 750 MG/150 ML 750 MG/150 ML BAG IVPB ONE (19:15)
[2018-06-06] MEDS ORDERED: Propofol 500 MG/50 ML INFUS..BTL ONE (19:20)
[2018-06-06 19:29] LABS: Hypochromasia Present (Not Present); Platelet Estimate Normal (Normal); Polychromasia 1+ (Not Present); Stomatocytes 2+ (Not Present)
[2018-06-06] MEDS ORDERED: 0.9 % Sodium Chloride 1,000 ML IVC SCH (19:30)
[2018-06-06] MEDS ORDERED: Naloxone 0.4 MG/ML INJ IVP PRN (20:42)
[2018-06-06] MEDS ORDERED: Artificial Tears SOLN 15 ML BOTTLE BOTH EYES PRN (20:49)
--- NOTE | 2018-06-06 20:55 | Internal Med History&Physical ---
Date of Encounter: 06/06/18 Time of Encounter: 21:22 Internal Medicine - H&P: HPI Chief complaint: Shortness of breath Admitted From: Long-term Nursing Facility Plans for Post Hospital Care: Transfer Halfway Facility History of present illness: Ms. Cox is a 62 year old female who presented from [facility] to rehabilitation facility with chief complaint of shortness of breath. According to patient's family and patient was discharged from [facility] on 05/24/18 for acute respiratory failure secondary to COPD, pulmonary hypertension, phrenic nerve follow C and diastolic congestive heart failure. Since that discharge patient's respiratory status was stable. She was on nightly BiPAP. However according to patient's son in the past week she increase in lower extremity edema and worsening shortness of breath. Unclear if patient was given Lasix as her med rec is not reconciled. She reported her normal weight was usually 250 pounds and recently has been 275 pounds. Last Tuesday son reports patient was put on BiPAP for over 12 hours which improved her breathing for her edema continued to worsen. On Tuesday patient's mental status was stable, she was awake and alert according to family and conversing. Son reports that overnight on Tuesday patient's BiPAP malfunction and she was unable to use it properly. Her oxygen saturation were in the 60s on Tuesday, however he reports he adjusted her BiPAP and her hypoxia resolved. However this morning she was more confused and less conversational. She is noted to be hypoxic again with O2 saturation in the 60s and due to this she was transferred to ED. In the emergency department patient was placed on BiPAP however her respiratory status worsened and she was intubated and sedated. She was given IV vancomycin and Levaquin for possible pneumonia. She was sedated with propofol. 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 Psychiatric history: anxiety, depression - Past Surgical History Surgical History: no surgical history Additional surgical history: Knee scope - Social History Smoking Status: Never smoker Smokeless Tobacco Status: No Alcohol use: none Drug use: none - Family History Father Family Member Ethnicity: Non- Living Status: Hx Family Cardiac Disorders: Yes (MD, HTN) Brother Family Member Ethnicity: Non- Living Status: Still Living Hx Family GI Disorders: Yes (Colon resection) Sister Family Member Ethnicity: Non- Living Status: Hx Family Cardiac Disorders: Yes (CAD, HTN) Hx Family Respiratory Disorders: Yes (COPD) Mother Adopted: No Family Member Ethnicity: Non- Living Status: Hx Family Cardiac Disorders: Yes (CHF) Hx Family Respiratory Disorders: Yes (COPD) Hx Family Cancer: Yes (skin) Hx Family GI Disorders: No Hx Family Endocrine Disorder: Yes (DM) Hx Family Neuromuscular Disorders: No Hx Family Neurologic Disorders: Yes (CVA with rt sided weakness) Hx Family HEENT Disorders: Yes ([place]) Hx Family Autoimmune Disorders: No Internal Medicine - H&P: Meds Latanoprost [Xalatan] 1 drop BOTH EYES HS 04/06/16 [History] SitaGLIPtin [Januvia] 100 mg PO DAILY 04/06/16 [History] Albuterol Sulfate [Albuterol Inhaler] 2 puff IH Q4H PRN 04/14/17 [History] Citalopram Hydrobromide [Citalopram HBr] 40 mg PO HS 04/14/17 [History] Docusate [Colace] 100 mg PO DAILY 04/14/17 [History] Gabapentin [Neurontin] 600 mg PO HS 04/14/17 [History] Brimonidine 0.2% [Alphagan] 1 drop BOTH EYES BID 12/19/17 [History] Propylene Glycol/Peg 400 [Systane Ultra 0.4-0.3% Eye Drp] 1 drop OP QID [History] Ipratropium/Albuterol Neb [Duoneb] 3 ml IH [id number] PRN inhsol 01/18/18 [Rx] Iron Polysaccharide Complex [Ferrex 150] 150 mg PO DAILY capsule 01/18/18 [Rx] Ascorbic Acid [Vitamin C] 500 mg PO 0630 #30 tablet 01/25/18 [Rx] Isosorbide MONOnitrate (24 HR) [Imdur] 30 mg PO DAILY #30 tab.er.24h 01/25/18 [ Rx] Esomeprazole Magnesium [Nexium] 40 mg PO DAILY 03/29/18 [History] Ibandronate Sodium [Boniva] 150 mg PO QMONTH 03/29/18 [History] Insulin DETEMIR [Levemir Flextouch] 40 unit SQ HS #12 insuln.pen 05/03/18 [Rx] Diltiazem CD (24hr) [Cardizem CD] 180 mg PO DAILY #30 cap.er.24h 05/18/18 [Rx] Rivaroxaban [Xarelto] 20 mg PO 1700 06/06/18 [History] Simvastatin [Zocor] 40 mg PO HS 06/06/18 [History] 3 Allergy/AdvReac Type Severity Reaction Status Date / Time hydrocodone [From Vicodin] AdvReac Nausea Verified 05/13/18 10:46 Hydromorphone [From Dilaudid] AdvReac Nausea Verified 05/13/18 10:46 ROS unobtainable: due to endotracheal tube All Systems PM: A 10-system review of systems was performed and is negative for pertinent findings except as documented above in the HPI. - Constitutional Vitals: Temp Pulse Resp BP Pulse Ox 98.3 F 123 16 118/79 98 06/06/18 19:42 06/06/18 20:03 06/06/18 20:03 06/06/18 20:03 06/06/18 20:03 Exam: patient sedated but did respond to verbal commands to squeezing hand - Other Additional findings: General: Sedated, intubated HEENT: Head atraumatic, normocephalic,PERRL, neck nontender to palpation, absent lymphadenopathy, intubated Heart: Tachycardic, irregularly irregular Lungs: Diminished bilaterally, radials bilaterally Abdomen: Soft nontender, nondistended positive bowel sounds Skin: Erythema, irritation below left breast Extremities: 3+ pedal edema Neuro: Intubated, sedated Vascular: radial pulses 2 out of 4 Internal Med - H&P Results - Labs CBC & Chem 7: 06/06/18 18:09 06/06/18 17:26 - Assessment and plan (1) Acute on chronic respiratory failure with hypoxia and hypercapnia Current Visit: Yes Status: Acute Assessment and plan: 62-year-old [facility] chief complaint of shortness of breath, along with confusion Patient was emergently intubated in the emergency room for acute on chronic respiratory failure and sent to ICU Presenting VBG pH 7.13, VBG PCO2 131 VBG PO2 61. Chest x-ray showed low lung volumes with left-sided pleural effusion associated airspace disease, cardiomegaly. No infiltrates visible. BNP 581 Lung exam Rales present bilaterally Patient's respiratory failure likely secondary to acute on chronic diastolic CHF exacerbation, COPD exacerbation. Patient's weight has increased according to family from 250 pounds to 275 pounds in the last week. Patient's ABG improved after intubation with pH 7.42 and PCO2 of 60. Patient does not have any signs of infiltrates on chest x-ray, white blood cell count is within normal limits, afebrile. Lactic acid within normal limits. Currently we are not suspecting pneumonia however patient did receive 1 dose of vancomycin and Levaquin on admission and if there are any signs of infection we will restart broad-spectrum antibiotics. Started patient on Lasix IV 40 mg daily, strict I's and O's, Glasgow catheter in place CXR in AM ABG in AM Patient also on Solu-Medrol 60 mg IV every 8 hours (2) Acute exacerbation of chronic obstructive pulmonary disease (COPD) Current Visit: Yes Status: Acute Assessment and plan: Patient is placed on IV Solu-Medrol, nebulizer and levaquin. (3) Diastolic CHF Current Visit: Yes Status: Chronic Assessment and plan: Acute on chronic diastolic CHF Echo completed on 05/02/2018 showed EF of 50-55% with an determine diastolic function, severe dilated left atrium, mild poorly hypertension. Unclear if patient is on Lasix as this was not in her previous discharge summary and med reconciliation has not been able to be completed Patient is currently on 40 mg IV Lasix Patient's Glasgow catheter has 400 mL of urine Strict I's and O's BMP in the morning Qualifiers: Heart failure chronicity: acute on chronic Qualified Code(s): I50.33 - Acute on chronic diastolic (congestive) heart failure (4) Renal failure (ARF), acute on chronic Current Visit: Yes Status: Acute Assessment and plan: Patient's baseline serum creatinine is around 1 Presented with a serum creatinine of 1.55 Patient did receive IV fluids on admission However due to her fluid overload status this has been discontinued Likely secondary to decreased renal perfusion from third spacing Patient placed on IV Lasix. Repeat BMP in the morning. Qualifiers: Acute renal failure type: unspecified Chronic kidney disease stage: stage 3 (moderate) Qualified Code(s): N17.9 - Acute kidney failure, unspecified; N18.3 - Chronic kidney disease, stage 3 (moderate) (5) Diabetes Current Visit: Yes Status: Chronic Assessment and plan: History has history of type 2 diabetes on IV insulin Currently she is nothing by mouth secondary to being intubated Patient is started on sliding scale insulin Qualifiers: Diabetes mellitus type: type 2 Diabetes mellitus nursing home insulin use: without nursing home use Diabetes mellitus complication status: with kidney complications Diabetes mellitus complication detail: with chronic kidney disease Chronic kidney disease stage: stage 3 (moderate) Qualified Code(s): E11.22 - Type 2 diabetes mellitus with diabetic chronic kidney disease; N18.3 - Chronic kidney disease, stage 3 (moderate) (6) Diaphragmatic hernia Current Visit: Yes Status: Acute Assessment and plan: Patient has a history of phrenic nerve palsy and diaphragmatic hernia This is chronic. Qualifiers: Obstruction and gangrene presence: without obstruction or gangrene Qualified Code(s): K44.9 - Diaphragmatic hernia without obstruction or gangrene (7) AIMEE (obstructive sleep apnea) Current Visit: Yes Status: Chronic Assessment and plan: Patient has a history of AIMEE Currently she is intubated and sedated. (8) Afib Current Visit: Yes Status: Chronic Assessment and plan: She has history of atrial fibrillation Currently her rate is between 100-120s Unclear if patient had her dose of Cardizem today Anticoagulated on xeralto We will continue Cardizem 60 mg every 8 hours Qualifiers: Atrial fibrillation type: chronic Qualified Code(s): I48.2 - Chronic atrial fibrillation (9) DVT prophylaxis Current Visit: Yes Status: Acute Assessment and plan: Xeralto - Time Spent With Patient Total time spent is greater than 50% in coordination of care (as documented) at patient's floor/unit and/or counseling patient:
[2018-06-06] MEDS ORDERED: D5% in Water 1,000 ML IVC PRN (21:00)
[2018-06-06] MEDS ORDERED: *HR* Dextrose 50 % in Water (Syg) 50 ML SYRINGE IVP PRN (21:00)
[2018-06-06] MEDS ORDERED: Dextrose Gel 15 GM/37.5 ML TUBE PO PRN ×2 (21:00)
[2018-06-06 21:19] LABS: ABG Base Excess 13 mEq/L (-2 to 3); ABG HCO3 39 mEq/L (21-27); ABG Oxygen Saturation 99 % (95-98); ABG PCO2 60 mmHg (35-45); ABG PH 7.42 pH Units (7.32-7.45); ABG PO2 134 mmHg (85-104); ABG TCO2 41 mEq/L (20-26); Blood Gas Modality ASSIST CONTROL; Blood Gas PEEP 5 cm H2O; Blood Gas Respiration Rate 16; Blood Gas VT 480 cc
[2018-06-06] MEDS: Propofol 500 MG/50 ML INFUS..BTL IVC SCH ×2 (21:56→22:05)
[2018-06-06] MEDS: Docusate Oral Soln 100 MG/10 ML UDC GTUBE SCH (21:57)
[2018-06-06] MEDS: Nystatin POWDER 30 GM BOTTLE TP SCH (21:57)
[2018-06-06] MEDS: Insulin LISPRO 300 UNITS/3 ML VIAL SQ SCH ×2 (21:57→23:59)
[2018-06-06] MEDS: Chlorhexidine Rinse 15 ML MOUTHWASH MM SCH (22:06)
[2018-06-06] MEDS: Levalbuterol Neb 1.25 MG/3 ML IH SCH (22:13)
[2018-06-06] MEDS: Artificial Tears SOLN 15 ML BOTTLE BOTH EYES SCH (23:44)
[2018-06-06] MEDS: methylPREDNISolone 125 MG/2 ML VIAL IVP SCH (23:45)
[2018-06-07] MEDS: Nystatin POWDER 30 GM BOTTLE TP SCH ×4 (00:58→20:19)
[2018-06-07] MEDS: Propofol 500 MG/50 ML INFUS..BTL IVC SCH ×3 (02:50→11:45)
[2018-06-07] MEDS: Levalbuterol Neb 1.25 MG/3 ML IH SCH ×4 (03:43→21:33)
[2018-06-07] MEDS: Artificial Tears SOLN 15 ML BOTTLE BOTH EYES SCH ×6 (04:00→23:53)
[2018-06-07 04:45] LABS: Hematocrit 25.8 % (35.3-44.9); Hemoglobin 7.5 g/dL (11.5-15.4); Immature Granulocytes % 0.2 % (0-4); Lymphocytes # 0.2 K/mcL (0.6-4.6); Lymphocytes % 3.3 %; Mean Corpuscular HGB Conc 29.1 g/dL (31.6-35.5); Mean Corpuscular Hemoglobin 28.5 pg (28.0-33.3); Mean Corpuscular Volume 98.1 fL (83.0-100.0); Mean Platelet Volume 12.4 fL (9.4-12.4); Monocytes # 0.1 K/mcL (0.0-1.3); Monocytes % 1.6 %; Platelet Count 133 K/mcL (140-400); Red Blood Count 2.63 M/mcL (3.82-4.97); Red Cell Distribution Width 14.7 % (11.5-14.5); Segmented Neutrophils % 94.9 %
[2018-06-07 04:50] LABS: Neutrophils # 4.7 K/mcL (1.6-8.9)
[2018-06-07 04:54] LABS: ABG Base Excess 9 mEq/L (-2 to 3); ABG HCO3 32 mEq/L (21-27); ABG Oxygen Saturation 93 % (95-98); ABG PCO2 36 mmHg (35-45); ABG PH 7.56 pH Units (7.32-7.45); ABG PO2 59 mmHg (85-104); ABG TCO2 33 mEq/L (20-26); Blood Gas Modality PRVC; Blood Gas PEEP 5 cm H2O; Blood Gas Respiration Rate 16; Blood Gas VT 480 cc
[2018-06-07 05:04] LABS: Albumin 2.8 g/dL (3.5-5.7); Albumin/Globulin Ratio 0.9 (1.1-2.2); Bilirubin,Total 0.8 mg/dL (0.3-1.0); Globulin 3.1 g/dL (2.4-3.5); Potassium 4.4 mEq/L (3.5-5.1); Total Protein 5.9 g/dL (6.4-8.9)
[2018-06-07 05:34] LABS: Anisocytosis 1+ (Not Present); Platelet Estimate Normal (Normal)
[2018-06-07] MEDS: Famotidine 20 MG/2 ML VIAL IVP SCH ×2 (06:00→16:33)
[2018-06-07] MEDS: Insulin LISPRO 300 UNITS/3 ML VIAL SQ SCH ×5 (06:01→23:52)
--- NOTE | 2018-06-07 07:41 | Electrocardiograph Report ---
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
[2018-06-07] MEDS: methylPREDNISolone 125 MG/2 ML VIAL IVP SCH ×3 (07:42→23:52)
[2018-06-07] MEDS: Chlorhexidine Rinse 15 ML MOUTHWASH MM SCH ×2 (07:42→20:19)
[2018-06-07] MEDS: Docusate Oral Soln 100 MG/10 ML UDC GTUBE SCH ×2 (07:42→20:19)
--- NOTE | 2018-06-07 08:33 | Pulmonology Consult Note ---
<Olegario Bustos - Last Filed: 06/07/18 14:37> Date of Encounter: 06/07/18 Time of Encounter: 07:45 Assessment and Plan (1) Acute on chronic respiratory failure with hypoxia and hypercapnia Current Visit: Yes Status: Acute 62 year old woman brought from [facility] for SOB and confusion. She was intubated in the ED for acute on chronic resp failure and admitted to the ICU. She was discharged on 05/24/18 for acute resp failure. This is likely 2/2 acute on chronic diastolic HF and not pneumonia or COPD exacerbation. Most recent ABG on vent at 30% O2, pH 7.56, pCO2 36, pO2 59, HCO3 32, and BE 9. BNP 581. Today' s cxr unchanged from yesterday besides ETT at 1.2cm and showed chronic R hemidiaphragm elevation, low lung volumes, L sided pleural effusion with associated airspace disease. ETT retracted 2cm and repeat cxr orderd. She is afebrile, without leukocytosis or lactic acidosis. She was started on 40mg IV lasix and this was switched to lasix drip today. [place] in place, electrolyte protocol ordered. (2) Renal failure (ARF), acute on chronic Current Visit: Yes Status: Acute Baseline Cr ~1. Cr on admission 1.55 and today is 1.41. She received IV fluids in ED. IVF have been dc at this point due to fluid status. Qualifiers: Acute renal failure type: unspecified Chronic kidney disease stage: stage 3 (moderate) Qualified Code(s): N17.9 - Acute kidney failure, unspecified; N18.3 - Chronic kidney disease, stage 3 (moderate) (3) Diastolic CHF Current Visit: Yes Status: Chronic Hx of diastolic HF. ECHO on 05/02/18 EF 50-55% with determinant diastolic dysfunction, severe L atrial enlargement, and mild pulm HTN. Glasgow in place and -1275ml so far today. Switched IV lasix to lasix drip today. Will monitor fluid status, renal function, urine output, electrolytes, and BP with lasix drip. Qualifiers: Heart failure chronicity: acute on chronic Qualified Code(s): I50.33 - Acute on chronic diastolic (congestive) heart failure (4) Afib Current Visit: Yes Status: Chronic Hx of afib and on afib in ED. Rate controlled with 60mg diltiazem at home. Will hold diltiazem during diuresis. If rate sustained as RVR can add amiodarone drip in short term. Continue xeralto for anticoagulation. Qualifiers: Atrial fibrillation type: chronic Qualified Code(s): I48.2 - Chronic atrial fibrillation (5) COPD (chronic obstructive pulmonary disease) Current Visit: No Status: Chronic Hx of COPD. No signs of infection or exacerbation. More likely fluid related. Will check blood cultures tomorrow and deescalate abx as indicated. Qualifiers: COPD type: COPD with acute exacerbation Qualified Code(s): J44.1 - Chronic obstructive pulmonary disease with (acute) exacerbation (6) Anemia Current Visit: No Status: Chronic Hemoglobin last admission on 05/23/18 remained stable at ~8.9. Folate and B12 normal at that time. Recent EGD and colonoscopy negative for bleeding. Hgb yesterday was 8.6 hct 31, today hgb 7.5 hct 31. Do not think she is actively bleeding but more a chronic anemia. Will check CBC in morning. Qualifiers: Anemia type: unspecified type Qualified Code(s): D64.9 - Anemia, unspecified (7) Diabetes Current Visit: Yes Status: Chronic Hx of insulin dependance at home. Will be on sliding scale insulin when no longer NPO. 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 R hemidiaphragm paralysis and hiatal hernia. 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 Qualifiers: Obstruction and gangrene presence: without obstruction or gangrene Qualified Code(s): K44.9 - Diaphragmatic hernia without obstruction or gangrene (10) AIMEE (obstructive sleep apnea) Current Visit: Yes Status: Chronic Hx of AIMEE. On vent now but cpap at night when extubated. (11) DVT prophylaxis Current Visit: Yes Status: Acute Chemical prophylaxis with xeralto History of Present Illness Consult date: 06/07/18 Requesting physician: Gregory Stanford Reason for consult: other (Intubated patient in ICU) History of present illness: She is a 62 year old woman with pmh significant for afib, COPD, diastolic CHF, pulm HTN, R phrenic nerve palsy complicated with R lung paralysis/ underdeveloped R lung, DM, HTN, and HLD. Pulm consulted for respiratory failure. Hx comes from medical record as she is intubated and sedated. She was discharged from [facility] on 05/24/18 for acute resp failure 2/2 COPD, pulm HTN, diastolic CHF, and R phrenic nerve palsy. Her resp status upon dc to rehab was stable. She used nightly BiPAP. Admission H&P noted her son indicated over the last week she has had increased LE edema and SOB. Weight increase from baseline ~250 lbs to 275 lbs. 5 days ago she was placed on BiPAP for 12 hours which improved her breathing. 2 days ago her BiPAP was not working properly and O2 sats dropped into the 60's. Her son was able to adjust the settings and her hypoxia resolved. Yesterday morning she was thought to be confused, less conversational, having SOB, hypoxic with sats in 60's at which point she was brought to the ED. Upon arrival she was found to be in afib with rate 126, placed on BiPAP for SOB, and when resp status declined she was intubated and placed on vent. Initial cxr in ED showed low lung volumes and L pleural effusion. She was placed on IV vancomycin and levofloxacin for possible pneumonia and admitted. 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 Psychiatric history: anxiety, depression - Past Surgical History Surgical History: no surgical history Additional surgical history: Knee scope - Social History Smoking Status: Never smoker Smokeless Tobacco Status: No Alcohol use: none Drug use: none - Family History Father Family Member Ethnicity: Non- Living Status: Hx Family Cardiac Disorders: Yes (OR, HTN) Brother Family Member Ethnicity: Non- Living Status: Still Living Hx Family GI Disorders: Yes (Colon resection) Sister Family Member Ethnicity: Non- Living Status: Hx Family Cardiac Disorders: Yes (CAD, HTN) Hx Family Respiratory Disorders: Yes (COPD) Mother Adopted: No Family Member Ethnicity: Non- Living Status: Hx Family Cardiac Disorders: Yes (CHF) Hx Family Respiratory Disorders: Yes (COPD) Hx Family Cancer: Yes (skin) Hx Family GI Disorders: No Hx Family Endocrine Disorder: Yes (DM) Hx Family Neuromuscular Disorders: No Hx Family Neurologic Disorders: Yes (CVA with rt sided weakness) Hx Family HEENT Disorders: Yes ([place]) Hx Family Autoimmune Disorders: No Medications and Allergies Latanoprost [Xalatan] 1 drop BOTH EYES HS 04/06/16 [History] SitaGLIPtin [Januvia] 100 mg PO DAILY 04/06/16 [History] Albuterol Sulfate [Albuterol Inhaler] 2 puff IH Q4H PRN 04/14/17 [History] Citalopram Hydrobromide [Citalopram HBr] 40 mg PO HS 04/14/17 [History] Docusate [Colace] 100 mg PO DAILY 04/14/17 [History] Gabapentin [Neurontin] 600 mg PO HS 04/14/17 [History] Brimonidine 0.2% [Alphagan] 1 drop BOTH EYES BID 12/19/17 [History] Propylene Glycol/Peg 400 [Systane Ultra 0.4-0.3% Eye Drp] 1 drop OP QID [History] Ipratropium/Albuterol Neb [Duoneb] 3 ml IH [id number] PRN inhsol 01/18/18 [Rx] Iron Polysaccharide Complex [Ferrex 150] 150 mg PO DAILY capsule 01/18/18 [Rx] Ascorbic Acid [Vitamin C] 500 mg PO 0630 #30 tablet 01/25/18 [Rx] Isosorbide MONOnitrate (24 HR) [Imdur] 30 mg PO DAILY #30 tab.er.24h 01/25/18 [ Rx] Esomeprazole Magnesium [Nexium] 40 mg PO DAILY 03/29/18 [History] Ibandronate Sodium [Boniva] 150 mg PO QMONTH 03/29/18 [History] Insulin DETEMIR [Levemir Flextouch] 40 unit SQ HS #12 insuln.pen 05/03/18 [Rx] Diltiazem CD (24hr) [Cardizem CD] 180 mg PO DAILY #30 cap.er.24h 05/18/18 [Rx] Rivaroxaban [Xarelto] 20 mg PO 1700 06/06/18 [History] Simvastatin [Zocor] 40 mg PO HS 06/06/18 [History] 3 Allergy/AdvReac Type Severity Reaction Status Date / Time hydrocodone [From Vicodin] AdvReac Nausea Verified 05/13/18 10:46 Hydromorphone [From Dilaudid] AdvReac Nausea Verified 05/13/18 10:46 ROS unobtainable: due to endotracheal tube All Systems: The remainder of the systems were reviewed and are negative Physical Examination Vital Signs: Vital Signs, Last 4 Hours Pulse Resp BP Pulse Ox 06/07/18 07:16 16 91/75 96 06/07/18 06:00 103 16 91/75 91 06/07/18 05:12 16 116/74 96 06/07/18 05:00 95 16 116/74 97 General appearance: other (Intubated and sedated on propofol. Will respond to noxious stimuli. ) Eyes: nonicteric ENT: oropharynx moist Inspection: normal Auscultation: bilateral: diminished breath sounds, rales (L>R peripheral) Cardiovascular: irregular rhythm Gastrointestinal: normoactive bowel sounds, soft, non-tender Integumentary: erythema Extremities: no cyanosis, edema other (Sedated on propofol) Ventilator Settings Ventilator Settings: Ventilator Settings, Last 8 Hours Ventilator Tidal Volume 440 Setting Ventilator Tidal Volume 440 Setting Ventilator Tidal Volume 440 Setting Ventilator Tidal Volume 440 Setting Ventilator Tidal Volume 480 Setting Ventilator Tidal Volume 480 Setting Ventilator Tidal Volume 480 Setting Ventilator Tidal Volume 480 Setting Ventilator Tidal Volume 480 Setting Ventilator Tidal Volume 480 Setting Ventilator Tidal Volume 480 Setting Ventilator Respiratory Rate 16 Setting Ventilator Respiratory Rate 16 Setting Ventilator Respiratory Rate 16 Setting Ventilator Respiratory Rate 16 Setting Ventilator Respiratory Rate 16 Setting Ventilator Respiratory Rate 16 Setting Ventilator Respiratory Rate 16 Setting Ventilator Respiratory Rate 16 Setting Ventilator Respiratory Rate 16 Setting Ventilator Respiratory Rate 16 Setting Ventilator Respiratory Rate 16 Setting Actual Respiratory Rate 16 Actual Respiratory Rate 16 Actual Respiratory Rate 16 Actual Respiratory Rate 16 Actual Respiratory Rate 16 Actual Respiratory Rate 16 Actual Respiratory Rate 16 Actual Respiratory Rate 16 Actual Respiratory Rate 16 Actual Respiratory Rate 16 Positive End Expiratory 5 Pressure Positive End Expiratory 5 Pressure Positive End Expiratory 5 Pressure Positive End Expiratory 5 Pressure Positive End Expiratory 5 Pressure Positive End Expiratory 5 Pressure Positive End Expiratory 5 Pressure Positive End Expiratory 5 Pressure Positive End Expiratory 5 Pressure Positive End Expiratory 5 Pressure Positive End Expiratory 5 Pressure Peak Inspiratory Airway 27 Pressure Peak Inspiratory Airway 27 Pressure Peak Inspiratory Airway 25 Pressure Peak Inspiratory Airway 26 Pressure Peak Inspiratory Airway 26 Pressure Peak Inspiratory Airway 27 Pressure Peak Inspiratory Airway 33 Pressure Peak Inspiratory Airway 27 Pressure Peak Inspiratory Airway 32 Pressure Peak Inspiratory Airway 31 Pressure Results - Laboratory Findings CBC and BMP: 06/07/18 04:21 06/07/18 04:21 ABG ABG pH 7.56 pH Units (7.32-7.45) H 06/07/18 04:51 ABG pCO2 36 mmHg (35-45) 06/07/18 04:51 ABG pO2 59 mmHg (85-104) L 06/07/18 04:51 ABG O2 Saturation 93 % (95-98) L 06/07/18 04:51 PT/INR, D-dimer PT 13.6 Seconds (9.4-12.1) H 06/06/18 17:26 Abnormal lab findings: Abnormal lab results RBC 2.63 M/mcL (3.82-4.97) L 06/07/18 04:21 Hgb 7.5 g/dL (11.5-15.4) L 06/07/18 04:21 Hct 25.8 % (35.3-44.9) L 06/07/18 04:21 MCHC 29.1 g/dL (31.6-35.5) L 06/07/18 04:21 RDW 14.7 % (11.5-14.5) H 06/07/18 04:21 Plt Count 133 K/mcL (140-400) L 06/07/18 04:21 Lymphocytes # 0.2 K/mcL (0.6-4.6) L 06/07/18 04:21 Polychromasia 1+ (Not Present) A 06/06/18 18:09 Hypochromasia Present (Not Present) A 06/06/18 18:09 Anisocytosis 1+ (Not Present) A 06/07/18 04:21 Stomatocytes 2+ (Not Present) A 06/06/18 18:09 PT 13.6 Seconds (9.4-12.1) H 06/06/18 17:26 ABG pH 7.56 pH Units (7.32-7.45) H 06/07/18 04:51 ABG pO2 59 mmHg (85-104) L 06/07/18 04:51 ABG HCO3 32 mEq/L (21-27) H 06/07/18 04:51 ABG Total CO2 33 mEq/L (20-26) H 06/07/18 04:51 ABG O2 Saturation 93 % (95-98) L 06/07/18 04:51 ABG Base Excess 9 mEq/L (-2 to 3) H 06/07/18 04:51 VBG pH 7.13 pH Units (7.32-7.42) L* 06/06/18 17:54 VBG pCO2 131 mmHg (41-51) H* 06/06/18 17:54 VBG pO2 61 mmHg (25-50) H 06/06/18 17:54 VBG HCO3 44 mEq/L (21-27) H 06/06/18 17:54 Chloride 94 mEq/L (98-107) L 06/07/18 04:21 Carbon Dioxide 33 mEq/L (23-29) H 06/07/18 04:21 BUN 38 mg/dL (8-23) H 06/07/18 04:21 Creatinine 1.41 mg/dL (0.60-1.20) H 06/07/18 04:21 Est GFR ( Amer) 46 (> 60) L 06/07/18 04:21 Est GFR (Non-Af Amer) 38 (> 60) L 06/07/18 04:21 BUN/Creatinine Ratio 27 (6-26) H 06/07/18 04:21 Glucose 220 mg/dL (70-105) H 06/07/18 04:21 POC Glucose 199 mg/dL (70-99) H 06/06/18 23:46 Calculated Osmolality 304 (280-300) H 06/07/18 04:21 Calcium 8.0 mg/dL (8.6-10.3) L 06/07/18 04:21 Magnesium 2.9 mg/dL (1.6-2.6) H 06/06/18 17:26 AST 8 Units/L (13-39) L 06/07/18 04:21 Alkaline Phosphatase 156 Units/L (34-104) H 06/07/18 04:21 B-Natriuretic Peptide 581 pg/mL (Less than 100) H 06/06/18 17:26 Serum Total Protein 5.9 g/dL (6.4-8.9) L 06/07/18 04:21 Albumin 2.8 g/dL (3.5-5.7) L 06/07/18 04:21 Albumin/Globulin Ratio 0.9 (1.1-2.2) L 06/07/18 04:21 Urine Clarity Turbid (Clear) A 06/06/18 18:22 Urine Protein 100 mg/dL (Neg-Trace) H 06/06/18 18:22 Urine Blood Large (Negative) H 06/06/18 18:22 Ur Leukocyte Esterase Large (Negative) H 06/06/18 18:22 Urine Microscopic RBC TNTC per hpf (0-3) H 06/06/18 18:22 Urine Microscopic WBC TNTC per hpf (0-3) H 06/06/18 18:22 Ur Squamous Epith Cells Many per lpf (None-Few) H 06/06/18 18:22 Urine Bacteria Many per hpf (None-Few) H 06/06/18 18:22 Ur Culture Indicated? NO. (NO) A 06/06/18 18:22 - Clinical Findings Intake & Output: Intake & Output 06/06/18 06/07/18 06/07/18 23:59 07:59 15:59 Intake Total 20 / 21.6 100 / 100 Output Total 1175 / 1175 Balance 20 / 21.6 -1075 / -1075 Weight 130.3 kg 130.3 kg Consult Discharge Plan - Plan Referrals: Aayush Chase MD [Primary Care Provider] - <Alfonso Mcmahan - Last Filed: 06/07/18 16:56> Date of Encounter: 06/07/18 All Systems: The remainder of the systems were reviewed and are negative Physical Examination Vital Signs: Vital Signs, Last 4 Hours Temp Pulse Resp BP Pulse Ox 06/07/18 08:14 99.1 F 06/07/18 07:16 16 91/75 96 06/07/18 06:00 103 16 91/75 91 Ventilator Settings Ventilator Settings: Ventilator Settings, Last 8 Hours Ventilator Tidal Volume 440 Setting Ventilator Tidal Volume 440 Setting Ventilator Tidal Volume 440 Setting Ventilator Tidal Volume 440 Setting Ventilator Tidal Volume 480 Setting Ventilator Tidal Volume 480 Setting Ventilator Tidal Volume 480 Setting Ventilator Tidal Volume 480 Setting Ventilator Tidal Volume 480 Setting Ventilator Respiratory Rate 16 Setting Ventilator Respiratory Rate 16 Setting Ventilator Respiratory Rate 16 Setting Ventilator Respiratory Rate 16 Setting Ventilator Respiratory Rate 16 Setting Ventilator Respiratory Rate 16 Setting Ventilator Respiratory Rate 16 Setting Ventilator Respiratory Rate 16 Setting Ventilator Respiratory Rate 16 Setting Actual Respiratory Rate 16 Actual Respiratory Rate 16 Actual Respiratory Rate 16 Actual Respiratory Rate 16 Actual Respiratory Rate 16 Actual Respiratory Rate 16 Actual Respiratory Rate 16 Actual Respiratory Rate 16 Positive End Expiratory 5 Pressure Positive End Expiratory 5 Pressure Positive End Expiratory 5 Pressure Positive End Expiratory 5 Pressure Positive End Expiratory 5 Pressure Positive End Expiratory 5 Pressure Positive End Expiratory 5 Pressure Positive End Expiratory 5 Pressure Positive End Expiratory 5 Pressure Peak Inspiratory Airway 27 Pressure Peak Inspiratory Airway 27 Pressure Peak Inspiratory Airway 25 Pressure Peak Inspiratory Airway 26 Pressure Peak Inspiratory Airway 26 Pressure Peak Inspiratory Airway 27 Pressure Peak Inspiratory Airway 33 Pressure Peak Inspiratory Airway 27 Pressure Results - Laboratory Findings CBC and BMP: 06/07/18 04:21 06/07/18 04:21 ABG ABG pH 7.53 pH Units (7.32-7.45) H 06/07/18 08:51 ABG pCO2 48 mmHg (35-45) H 06/07/18 08:51 ABG pO2 68 mmHg (85-104) L 06/07/18 08:51 ABG O2 Saturation 95 % (95-98) 06/07/18 08:51 PT/INR, D-dimer PT 13.6 Seconds (9.4-12.1) H 06/06/18 17:26 Abnormal lab findings: Abnormal lab results RBC 2.63 M/mcL (3.82-4.97) L 06/07/18 04:21 Hgb 7.5 g/dL (11.5-15.4) L 06/07/18 04:21 Hct 25.8 % (35.3-44.9) L 06/07/18 04:21 MCHC 29.1 g/dL (31.6-35.5) L 06/07/18 04:21 RDW 14.7 % (11.5-14.5) H 06/07/18 04:21 Plt Count 133 K/mcL (140-400) L 06/07/18 04:21 Lymphocytes # 0.2 K/mcL (0.6-4.6) L 06/07/18 04:21 Polychromasia 1+ (Not Present) A 06/06/18 18:09 Hypochromasia Present (Not Present) A 06/06/18 18:09 Anisocytosis 1+ (Not Present) A 06/07/18 04:21 Stomatocytes 2+ (Not Present) A 06/06/18 18:09 PT 13.6 Seconds (9.4-12.1) H 06/06/18 17:26 ABG pH 7.53 pH Units (7.32-7.45) H 06/07/18 08:51 ABG pCO2 48 mmHg (35-45) H 06/07/18 08:51 ABG pO2 68 mmHg (85-104) L 06/07/18 08:51 ABG HCO3 40 mEq/L (21-27) H 06/07/18 08:51 ABG Total CO2 42 mEq/L (20-26) H 06/07/18 08:51 ABG Base Excess 16 mEq/L (-2 to 3) H 06/07/18 08:51 VBG pH 7.13 pH Units (7.32-7.42) L* 06/06/18 17:54 VBG pCO2 131 mmHg (41-51) H* 06/06/18 17:54 VBG pO2 61 mmHg (25-50) H 06/06/18 17:54 VBG HCO3 44 mEq/L (21-27) H 06/06/18 17:54 Chloride 94 mEq/L (98-107) L 06/07/18 04:21 Carbon Dioxide 33 mEq/L (23-29) H 06/07/18 04:21 BUN 38 mg/dL (8-23) H 06/07/18 04:21 Creatinine 1.41 mg/dL (0.60-1.20) H 06/07/18 04:21 Est GFR ( Amer) 46 (> 60) L 06/07/18 04:21 Est GFR (Non-Af Amer) 38 (> 60) L 06/07/18 04:21 BUN/Creatinine Ratio 27 (6-26) H 06/07/18 04:21 Glucose 220 mg/dL (70-105) H 06/07/18 04:21 POC Glucose 199 mg/dL (70-99) H 06/06/18 23:46 Calculated Osmolality 304 (280-300) H 06/07/18 04:21 Calcium 8.0 mg/dL (8.6-10.3) L 06/07/18 04:21 Magnesium 2.9 mg/dL (1.6-2.6) H 06/06/18 17:26 AST 8 Units/L (13-39) L 06/07/18 04:21 Alkaline Phosphatase 156 Units/L (34-104) H 06/07/18 04:21 B-Natriuretic Peptide 581 pg/mL (Less than 100) H 06/06/18 17:26 Serum Total Protein 5.9 g/dL (6.4-8.9) L 06/07/18 04:21 Albumin 2.8 g/dL (3.5-5.7) L 06/07/18 04:21 Albumin/Globulin Ratio 0.9 (1.1-2.2) L 06/07/18 04:21 Urine Clarity Turbid (Clear) A 06/06/18 18:22 Urine Protein 100 mg/dL (Neg-Trace) H 06/06/18 18:22 Urine Blood Large (Negative) H 06/06/18 18:22 Ur Leukocyte Esterase Large (Negative) H 06/06/18 18:22 Urine Microscopic RBC TNTC per hpf (0-3) H 06/06/18 18:22 Urine Microscopic WBC TNTC per hpf (0-3) H 06/06/18 18:22 Ur Squamous Epith Cells Many per lpf (None-Few) H 06/06/18 18:22 Urine Bacteria Many per hpf (None-Few) H 06/06/18 18:22 Ur Culture Indicated? NO. (NO) A 06/06/18 18:22 - Clinical Findings Intake & Output: Intake & Output 06/06/18 06/07/18 06/07/18 23:59 07:59 15:59 Intake Total 20 / 21.6 100 / 100 Output Total 1175 / 1175 200 / 200 Balance 20 / 21.6 -1075 / -1075 -200 / -200 Weight 130.3 kg 130.3 kg - Attending Attestation I examined this patient and my medical decision-making was reviewed with the Resident Physician. I agree with the documented findings, disposition and treatment plan as described except to the extent set forth below. Patient seen and examined. Labs, radiology, chart personally reviewed. Agree with resident's history and physical, assessment, plan with following comments: CORRESPONDENCE DICTATOR: Patient does not follows commands, patient is on sedation for the vent synchrony. Pulmonary: Patient has rebound metabolic alkalosis and I have decreased minute ventilation with follow-up ABG. Patient will benefit from Diamox. Cardiovascular: Overall heart rate is within acceptable range, will consider amiodarone drip if rate is not well controlled. Patient will be on Lasix tracings she looks extremely volume overloaded. GI: Nutrition per dietary and GI prophylaxis per routine Heme: DVT prophylaxis per routine ID: Continue antibiotics and plan to de-escalation Renal; urine out put and renal funtion reviewed. Monitor electrolytes carefully. Endorcine: blood glucose is monitored Lines: all lines checked and no evidence of infections Skin: skin care to prevent pressure ulcers per nursing routine care I spent 35 min of Critical Care time with this patient. It involved decision making of high complexity to assess, manipulate, and support vital organ system failure and/or to prevent further life threatening deterioration of the patient' s condition. The time involved in the performance of separately reportable procedures was not counted toward critical care time.
[2018-06-07 08:56] LABS: ABG Base Excess 16 mEq/L (-2 to 3); ABG HCO3 40 mEq/L (21-27); ABG Oxygen Saturation 95 % (95-98); ABG PCO2 48 mmHg (35-45); ABG PH 7.53 pH Units (7.32-7.45); ABG PO2 68 mmHg (85-104); ABG TCO2 42 mEq/L (20-26); Blood Gas Modality VC; Blood Gas PEEP 5 cm H2O; Blood Gas VT 400 cc
[2018-06-07] MEDS ORDERED: Furosemide 40 MG/4 ML VIAL IVP SCH (09:00)
[2018-06-07] MEDS ORDERED: *HR* Succinylcholine 200 MG/10 ML VIAL IVP ONE (09:53)
[2018-06-07] MEDS ORDERED: *HR* Etomidate 20 MG/10 ML AMPUL IVP ONE (09:53)
[2018-06-07] MEDS: Furosemide 240 MG in D5% in Water 96 ML IVC SCH (10:59)
[2018-06-07] MEDS ORDERED: *HR* Rivaroxaban 10 MG TABLET GTUBE SCH (17:00)
[2018-06-07] MEDS ORDERED: Levofloxacin 750 MG/150 ML 750 MG/150 ML BAG IVPB SCH (19:00)
[2018-06-07] MEDS ORDERED: Amiodarone Premix 150 MG/100 ML BAG IVPB ONE (22:32)
[2018-06-07] MEDS ORDERED: Amiodarone Premix 360 MG/200 ML BAG IVC ONE (22:32)
[2018-06-08] MEDS: Levalbuterol Neb 1.25 MG/3 ML IH SCH ×4 (03:12→21:44)
[2018-06-08 04:12] LABS: Hematocrit 25.4 % (35.3-44.9); Hemoglobin 7.6 g/dL (11.5-15.4); Immature Granulocytes % 0.4 % (0-4); Lymphocytes # 0.1 K/mcL (0.6-4.6); Lymphocytes % 2.6 %; Mean Corpuscular HGB Conc 29.9 g/dL (31.6-35.5); Mean Corpuscular Hemoglobin 29.1 pg (28.0-33.3); Mean Corpuscular Volume 97.3 fL (83.0-100.0); Mean Platelet Volume 12.2 fL (9.4-12.4); Monocytes # 0.3 K/mcL (0.0-1.3); Monocytes % 4.7 %; Neutrophils # 4.9 K/mcL (1.6-8.9); Platelet Count 139 K/mcL (140-400); Red Blood Count 2.61 M/mcL (3.82-4.97); Red Cell Distribution Width 15.5 % (11.5-14.5); Segmented Neutrophils % 92.3 %
[2018-06-08 04:30] LABS: Calcium 7.9 mg/dL (8.6-10.3); Magnesium 2.4 mg/dL (1.6-2.6); Potassium 3.4 mEq/L (3.5-5.1)
[2018-06-08 04:42] LABS: Platelet Estimate Slight Decrease (Normal)
[2018-06-08] MEDS: Amiodarone Premix 360 MG/200 ML BAG IVC SCH ×2 (04:47→17:28)
[2018-06-08] MEDS: Furosemide 240 MG in D5% in Water 96 ML IVC SCH (04:47)
[2018-06-08] MEDS: Artificial Tears SOLN 15 ML BOTTLE BOTH EYES SCH ×3 (04:47→11:17)
[2018-06-08] MEDS: Famotidine 20 MG/2 ML VIAL IVP SCH ×2 (04:48→17:24)
[2018-06-08] MEDS: Insulin LISPRO 300 UNITS/3 ML VIAL SQ SCH ×3 (04:50→17:29)
[2018-06-08 04:52] LABS: ABG Base Excess 13 mEq/L (-2 to 3); ABG HCO3 38 mEq/L (21-27); ABG Oxygen Saturation 95 % (95-98); ABG PCO2 50 mmHg (35-45); ABG PH 7.48 pH Units (7.32-7.45); ABG PO2 72 mmHg (85-104); ABG TCO2 39 mEq/L (20-26); Blood Gas Modality PRVC; Blood Gas PEEP 5 cm H2O; Blood Gas Respiration Rate 12; Blood Gas VT 400 cc
--- NOTE | 2018-06-08 07:12 | Pulmonology Progress Note ---
<MarjRamonshae M - Last Filed: 06/08/18 10:07> Date of Encounter: 06/08/18 Objective PUL Vital signs: Last Vital Signs Temp 98.2 F 06/08/18 07:24 Pulse 90 06/08/18 06:00 Resp 19 06/08/18 07:27 BP 135/69 06/08/18 07:27 Pulse Ox 95 06/08/18 07:27 Ventilator Settings Ventilator Settings: Ventilator Settings, Last 8 Hours Ventilator Tidal Volume 400 Setting Ventilator Tidal Volume 400 Setting Ventilator Tidal Volume 400 Setting Ventilator Tidal Volume 400 Setting Ventilator Tidal Volume 400 Setting Ventilator Tidal Volume 400 Setting Ventilator Tidal Volume 400 Setting Ventilator Tidal Volume 400 Setting Ventilator Tidal Volume 400 Setting Ventilator Tidal Volume 400 Setting Ventilator Tidal Volume 400 Setting Ventilator Respiratory Rate 12 Setting Ventilator Respiratory Rate 12 Setting Ventilator Respiratory Rate 12 Setting Ventilator Respiratory Rate 12 Setting Ventilator Respiratory Rate 12 Setting Ventilator Respiratory Rate 12 Setting Ventilator Respiratory Rate 12 Setting Ventilator Respiratory Rate 12 Setting Ventilator Respiratory Rate 12 Setting Ventilator Respiratory Rate 12 Setting Ventilator Respiratory Rate 12 Setting Actual Respiratory Rate 19 Actual Respiratory Rate 16 Actual Respiratory Rate 16 Actual Respiratory Rate 15 Actual Respiratory Rate 13 Actual Respiratory Rate 13 Actual Respiratory Rate 14 Actual Respiratory Rate 14 Actual Respiratory Rate 18 Actual Respiratory Rate 17 Actual Respiratory Rate 18 Positive End Expiratory 5 Pressure Positive End Expiratory 5 Pressure Positive End Expiratory 5 Pressure Positive End Expiratory 5 Pressure Positive End Expiratory 5 Pressure Positive End Expiratory 5 Pressure Positive End Expiratory 5 Pressure Positive End Expiratory 5 Pressure Positive End Expiratory 5 Pressure Positive End Expiratory 5 Pressure Positive End Expiratory 5 Pressure Positive End Expiratory 5 Pressure Peak Inspiratory Airway 11 Pressure Peak Inspiratory Airway 23 Pressure Peak Inspiratory Airway 24 Pressure Peak Inspiratory Airway 25 Pressure Peak Inspiratory Airway 26 Pressure Peak Inspiratory Airway 24 Pressure Peak Inspiratory Airway 25 Pressure Peak Inspiratory Airway 23 Pressure Peak Inspiratory Airway 25 Pressure Peak Inspiratory Airway 26 Pressure Peak Inspiratory Airway 25 Pressure Results - Laboratory Findings CBC and BMP: 06/08/18 04:00 06/08/18 04:00 ABG ABG pH 7.48 pH Units (7.32-7.45) H 06/08/18 04:48 ABG pCO2 50 mmHg (35-45) H 06/08/18 04:48 ABG pO2 72 mmHg (85-104) L 06/08/18 04:48 ABG O2 Saturation 95 % (95-98) 06/08/18 04:48 PT/INR, D-dimer PT 13.6 Seconds (9.4-12.1) H 06/06/18 17:26 Abnormal lab findings: Abnormal lab results RBC 2.61 M/mcL (3.82-4.97) L 06/08/18 04:00 Hgb 7.6 g/dL (11.5-15.4) L 06/08/18 04:00 Hct 25.4 % (35.3-44.9) L 06/08/18 04:00 MCHC 29.9 g/dL (31.6-35.5) L 06/08/18 04:00 RDW 15.5 % (11.5-14.5) H 06/08/18 04:00 Plt Count 139 K/mcL (140-400) L 06/08/18 04:00 Lymphocytes # 0.1 K/mcL (0.6-4.6) L 06/08/18 04:00 Platelet Estimate Slight Decrease (Normal) L 06/08/18 04:00 Polychromasia 1+ (Not Present) A 06/06/18 18:09 Hypochromasia Present (Not Present) A 06/06/18 18:09 Anisocytosis 1+ (Not Present) A 06/07/18 04:21 Stomatocytes 2+ (Not Present) A 06/06/18 18:09 PT 13.6 Seconds (9.4-12.1) H 06/06/18 17:26 ABG pH 7.48 pH Units (7.32-7.45) H 06/08/18 04:48 ABG pCO2 50 mmHg (35-45) H 06/08/18 04:48 ABG pO2 72 mmHg (85-104) L 06/08/18 04:48 ABG HCO3 38 mEq/L (21-27) H 06/08/18 04:48 ABG Total CO2 39 mEq/L (20-26) H 06/08/18 04:48 ABG Base Excess 13 mEq/L (-2 to 3) H 06/08/18 04:48 VBG pH 7.13 pH Units (7.32-7.42) L* 06/06/18 17:54 VBG pCO2 131 mmHg (41-51) H* 06/06/18 17:54 VBG pO2 61 mmHg (25-50) H 06/06/18 17:54 VBG HCO3 44 mEq/L (21-27) H 06/06/18 17:54 Potassium 3.4 mEq/L (3.5-5.1) L 06/08/18 04:00 Chloride 94 mEq/L (98-107) L 06/08/18 04:00 Carbon Dioxide 37 mEq/L (23-29) H 06/08/18 04:00 BUN 38 mg/dL (8-23) H 06/08/18 04:00 Creatinine 1.38 mg/dL (0.60-1.20) H 06/08/18 04:00 Est GFR ( Amer) 47 (> 60) L 06/08/18 04:00 Est GFR (Non-Af Amer) 39 (> 60) L 06/08/18 04:00 BUN/Creatinine Ratio 28 (6-26) H 06/08/18 04:00 Glucose 264 mg/dL (70-105) H 06/08/18 04:00 POC Glucose 233 mg/dL (70-99) H 06/07/18 23:40 Calculated Osmolality 310 (280-300) H 06/08/18 04:00 Calcium 7.9 mg/dL (8.6-10.3) L 06/08/18 04:00 AST 8 Units/L (13-39) L 06/07/18 04:21 Alkaline Phosphatase 156 Units/L (34-104) H 06/07/18 04:21 B-Natriuretic Peptide 581 pg/mL (Less than 100) H 06/06/18 17:26 Serum Total Protein 5.9 g/dL (6.4-8.9) L 06/07/18 04:21 Albumin 2.8 g/dL (3.5-5.7) L 06/07/18 04:21 Albumin/Globulin Ratio 0.9 (1.1-2.2) L 06/07/18 04:21 Urine Clarity Turbid (Clear) A 06/06/18 18:22 Urine Protein 100 mg/dL (Neg-Trace) H 06/06/18 18:22 Urine Blood Large (Negative) H 06/06/18 18:22 Ur Leukocyte Esterase Large (Negative) H 06/06/18 18:22 Urine Microscopic RBC TNTC per hpf (0-3) H 06/06/18 18:22 Urine Microscopic WBC TNTC per hpf (0-3) H 06/06/18 18:22 Ur Squamous Epith Cells Many per lpf (None-Few) H 06/06/18 18:22 Urine Bacteria Many per hpf (None-Few) H 06/06/18 18:22 Ur Culture Indicated? NO. (NO) A 06/06/18 18:22 - Clinical Findings Intake & Output: Intake & Output 06/07/18 06/07/18 06/08/18 15:59 23:59 07:59 Intake Total 75 / 75 250 / 250 320 / 320 Output Total 850 / 850 800 / 800 825 / 825 Balance -775 / -775 -550 / -550 -505 / -505 Weight 127.3 kg Consult Discharge Plan - Plan Referrals: Aayush Chase MD [Primary Care Provider] - - Attending Attestation I examined this patient and my medical decision-making was reviewed with the Resident Physician. I agree with the documented findings, disposition and treatment plan as described except to the extent set forth below. Patient seen and examined. Labs, radiology, chart personally reviewed. Agree with resident's history and physical, assessment, plan with following comments: [employer]: Patient follows commands, Pulmonary: Acceptable oxygenation and ventilation and with diuresis her lungs on chest x-ray shows some improvement to my interpretation. She is tolerating spontaneous breathing trial and plan to extubate with using noninvasive ventilation for chronic hypercapnic respiratory failure. Cardiovascular: Amiodarone for the A.fib. GI: Nutrition per dietary and GI prophylaxis per routine Heme: DVT prophylaxis per routine Renal; urine out put and renal funtion reviewed. Replace electrolytes and continue diuresis. Endorcine: blood glucose is monitored. Restart insulin and stop steroid. Lines: all lines checked and no evidence of infections Skin: skin care to prevent pressure ulcers per nursing routine care Possible transfer in next 1-2 days. <Olegario Bustos T - Last Filed: 06/08/18 10:46> Date of Encounter: 06/08/18 Time of Encounter: 07:12 Assessment and Plan (1) Acute on chronic respiratory failure with hypoxia and hypercapnia Current Visit: Yes Status: Acute 62 year old woman brought from [facility] for SOB and confusion. She was intubated in the ED for acute on chronic resp failure and admitted to the ICU. She was discharged on 05/24/18 for acute resp failure. This is likely 2/2 acute on chronic diastolic HF and not pneumonia or COPD exacerbation. Most recent ABG on vent at 30% O2, pH 7.48, pCO2 50, pO2 72, HCO3 32, and BE 13. BNP 581. Today' s cxr mostly unchanged from yesterday that showed L basilar consolidation, chronic R hemidiaphragm elevation, low lung volumes, L sided pleural effusion that is unchanged with associated airspace disease. She is afebrile, without leukocytosis or lactic acidosis. Lasix drip changed to 40mg IV BID. K 3.4 this morning and being replaced. [place] in place. SBT tolerated well, plan to extubate and place on BiPAP this morning. (2) Renal failure (ARF), acute on chronic Current Visit: Yes Status: Acute Baseline Cr ~1. Cr trending down now, Cr yst 1.41 and today is 1.38. Continue to monitor renal function for improvement while diuresing with lasix. Qualifiers: Acute renal failure type: unspecified Chronic kidney disease stage: stage 3 (moderate) Qualified Code(s): N17.9 - Acute kidney failure, unspecified; N18.3 - Chronic kidney disease, stage 3 (moderate) (3) Diastolic CHF Current Visit: Yes Status: Chronic Hx of diastolic HF. ECHO on 05/02/18 EF 50-55% with determinant diastolic dysfunction, severe L atrial enlargement, and mild pulm HTN. Glasgow in place and ins/out -2400ml yst and -330 so far today. LE edema minimally improved from yst. Switched lasix drip to lasix IV today. Will monitor fluid status, renal function, urine output, electrolytes, resp status on BiPAP and BP with continued diuresis. Qualifiers: Heart failure chronicity: acute on chronic Qualified Code(s): I50.33 - Acute on chronic diastolic (congestive) heart failure (4) Afib Current Visit: Yes Status: Chronic Hx of afib, afib in ED and continued afib today. Sustained rates in 130-40's last night and started on amiodarone. Rate controlled with 60mg diltiazem at home. Continue to hold diltiazem during diuresis and transition back to PO diltiazem when able. Continue xeralto for anticoagulation. Qualifiers: Atrial fibrillation type: chronic Qualified Code(s): I48.2 - Chronic atrial fibrillation (5) COPD (chronic obstructive pulmonary disease) Current Visit: No Status: Chronic Hx of COPD. No signs of infection or exacerbation. More likely fluid related. Blood cultures pending, dc abx and IV steroids. Qualifiers: COPD type: COPD with acute exacerbation Qualified Code(s): J44.1 - Chronic obstructive pulmonary disease with (acute) exacerbation (6) Anemia Current Visit: No Status: Chronic Hemoglobin last admission on 05/23/18 remained stable at ~8.9. Folate and B12 normal at that time. Recent EGD and colonoscopy negative for bleeding. Hgb remaining stable, was 8.6 hct 31 at admission, yst hgb 7.5 hct 31 and today hgb 7.6, hct 25. Do not think she is actively bleeding but more a chronic anemia. Will continue to monitor. Qualifiers: Anemia type: unspecified type Qualified Code(s): D64.9 - Anemia, unspecified (7) Diabetes Current Visit: Yes Status: Chronic Hx of insulin dependance at home. Will be on basal and sliding scale insulin when no longer NPO. 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 R hemidiaphragm paralysis and hiatal hernia. 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 Qualifiers: Obstruction and gangrene presence: without obstruction or gangrene Qualified Code(s): K44.9 - Diaphragmatic hernia without obstruction or gangrene (10) AIMEE (obstructive sleep apnea) Current Visit: Yes Status: Chronic Hx of AIMEE. On vent now but NIV when extubated. (11) DVT prophylaxis Current Visit: Yes Status: Acute Chemical prophylaxis with xeralto Subjective Principal diagnosis: Acute resp failure Interval history: She is doing better today. She is more awake. Still on vent but tolerated SBT this morning. Had sustained afib rates in 130-40's last night and was started on amiodarone drip. No other events reported. Objective PUL Vital signs: Last Vital Signs Temp 97.7 F 06/08/18 04:00 Pulse 90 06/08/18 06:00 Resp 16 06/08/18 06:20 BP 116/69 06/08/18 06:20 Pulse Ox 96 06/08/18 06:20 General appearance: other (Drowsy but arousable to voice. Eyes more open today. Intubated on vent. ) Eyes: nonicteric ENT: oropharynx moist Auscultation: bilateral: diminished breath sounds (L>R) Cardiovascular: irregular rhythm (In afib) Gastrointestinal: normoactive bowel sounds, soft, non-tender Extremities: no cyanosis, edema (Bilateral LE) Ventilator Settings Ventilator Settings: Ventilator Settings, Last 8 Hours Ventilator Tidal Volume 400 Setting Ventilator Tidal Volume 400 Setting Ventilator Tidal Volume 400 Setting Ventilator Tidal Volume 400 Setting Ventilator Tidal Volume 400 Setting Ventilator Tidal Volume 400 Setting Ventilator Tidal Volume 400 Setting Ventilator Tidal Volume 400 Setting Ventilator Tidal Volume 400 Setting Ventilator Tidal Volume 400 Setting Ventilator Tidal Volume 400 Setting Ventilator Tidal Volume 400 Setting Ventilator Respiratory Rate 12 Setting Ventilator Respiratory Rate 12 Setting Ventilator Respiratory Rate 12 Setting Ventilator Respiratory Rate 12 Setting Ventilator Respiratory Rate 12 Setting Ventilator Respiratory Rate 12 Setting Ventilator Respiratory Rate 12 Setting Ventilator Respiratory Rate 12 Setting Ventilator Respiratory Rate 12 Setting Ventilator Respiratory Rate 12 Setting Ventilator Respiratory Rate 12 Setting Ventilator Respiratory Rate 12 Setting Actual Respiratory Rate 16 Actual Respiratory Rate 16 Actual Respiratory Rate 15 Actual Respiratory Rate 13 Actual Respiratory Rate 13 Actual Respiratory Rate 14 Actual Respiratory Rate 14 Actual Respiratory Rate 18 Actual Respiratory Rate 17 Actual Respiratory Rate 18 Actual Respiratory Rate 17 Positive End Expiratory 5 Pressure Positive End Expiratory 5 Pressure Positive End Expiratory 5 Pressure Positive End Expiratory 5 Pressure Positive End Expiratory 5 Pressure Positive End Expiratory 5 Pressure Positive End Expiratory 5 Pressure Positive End Expiratory 5 Pressure Positive End Expiratory 5 Pressure Positive End Expiratory 5 Pressure Positive End Expiratory 5 Pressure Positive End Expiratory 5 Pressure Peak Inspiratory Airway 23 Pressure Peak Inspiratory Airway 24 Pressure Peak Inspiratory Airway 25 Pressure Peak Inspiratory Airway 26 Pressure Peak Inspiratory Airway 24 Pressure Peak Inspiratory Airway 25 Pressure Peak Inspiratory Airway 23 Pressure Peak Inspiratory Airway 25 Pressure Peak Inspiratory Airway 26 Pressure Peak Inspiratory Airway 25 Pressure Peak Inspiratory Airway 24 Pressure Results - Laboratory Findings CBC and BMP: 06/08/18 04:00 06/08/18 04:00 ABG ABG pH 7.48 pH Units (7.32-7.45) H 06/08/18 04:48 ABG pCO2 50 mmHg (35-45) H 06/08/18 04:48 ABG pO2 72 mmHg (85-104) L 06/08/18 04:48 ABG O2 Saturation 95 % (95-98) 06/08/18 04:48 PT/INR, D-dimer PT 13.6 Seconds (9.4-12.1) H 06/06/18 17:26 Abnormal lab findings: Abnormal lab results RBC 2.61 M/mcL (3.82-4.97) L 06/08/18 04:00 Hgb 7.6 g/dL (11.5-15.4) L 06/08/18 04:00 Hct 25.4 % (35.3-44.9) L 06/08/18 04:00 MCHC 29.9 g/dL (31.6-35.5) L 06/08/18 04:00 RDW 15.5 % (11.5-14.5) H 06/08/18 04:00 Plt Count 139 K/mcL (140-400) L 06/08/18 04:00 Lymphocytes # 0.1 K/mcL (0.6-4.6) L 06/08/18 04:00 Platelet Estimate Slight Decrease (Normal) L 06/08/18 04:00 Polychromasia 1+ (Not Present) A 06/06/18 18:09 Hypochromasia Present (Not Present) A 06/06/18 18:09 Anisocytosis 1+ (Not Present) A 06/07/18 04:21 Stomatocytes 2+ (Not Present) A 06/06/18 18:09 PT 13.6 Seconds (9.4-12.1) H 06/06/18 17:26 ABG pH 7.48 pH Units (7.32-7.45) H 06/08/18 04:48 ABG pCO2 50 mmHg (35-45) H 06/08/18 04:48 ABG pO2 72 mmHg (85-104) L 06/08/18 04:48 ABG HCO3 38 mEq/L (21-27) H 06/08/18 04:48 ABG Total CO2 39 mEq/L (20-26) H 06/08/18 04:48 ABG Base Excess 13 mEq/L (-2 to 3) H 06/08/18 04:48 VBG pH 7.13 pH Units (7.32-7.42) L* 06/06/18 17:54 VBG pCO2 131 mmHg (41-51) H* 06/06/18 17:54 VBG pO2 61 mmHg (25-50) H 06/06/18 17:54 VBG HCO3 44 mEq/L (21-27) H 06/06/18 17:54 Potassium 3.4 mEq/L (3.5-5.1) L 06/08/18 04:00 Chloride 94 mEq/L (98-107) L 06/08/18 04:00 Carbon Dioxide 37 mEq/L (23-29) H 06/08/18 04:00 BUN 38 mg/dL (8-23) H 06/08/18 04:00 Creatinine 1.38 mg/dL (0.60-1.20) H 06/08/18 04:00 Est GFR ( Amer) 47 (> 60) L 06/08/18 04:00 Est GFR (Non-Af Amer) 39 (> 60) L 06/08/18 04:00 BUN/Creatinine Ratio 28 (6-26) H 06/08/18 04:00 Glucose 264 mg/dL (70-105) H 06/08/18 04:00 POC Glucose 233 mg/dL (70-99) H 06/07/18 23:40 Calculated Osmolality 310 (280-300) H 06/08/18 04:00 Calcium 7.9 mg/dL (8.6-10.3) L 06/08/18 04:00 AST 8 Units/L (13-39) L 06/07/18 04:21 Alkaline Phosphatase 156 Units/L (34-104) H 06/07/18 04:21 B-Natriuretic Peptide 581 pg/mL (Less than 100) H 06/06/18 17:26 Serum Total Protein 5.9 g/dL (6.4-8.9) L 06/07/18 04:21 Albumin 2.8 g/dL (3.5-5.7) L 06/07/18 04:21 Albumin/Globulin Ratio 0.9 (1.1-2.2) L 06/07/18 04:21 Urine Clarity Turbid (Clear) A 06/06/18 18:22 Urine Protein 100 mg/dL (Neg-Trace) H 06/06/18 18:22 Urine Blood Large (Negative) H 06/06/18 18:22 Ur Leukocyte Esterase Large (Negative) H 06/06/18 18:22 Urine Microscopic RBC TNTC per hpf (0-3) H 06/06/18 18:22 Urine Microscopic WBC TNTC per hpf (0-3) H 06/06/18 18:22 Ur Squamous Epith Cells Many per lpf (None-Few) H 06/06/18 18:22 Urine Bacteria Many per hpf (None-Few) H 06/06/18 18:22 Ur Culture Indicated? NO. (NO) A 06/06/18 18:22 - Clinical Findings Intake & Output: Intake & Output 06/07/18 06/07/18 06/08/18 15:59 23:59 07:59 Intake Total 75 / 75 250 / 250 320 / 320 Output Total 850 / 850 800 / 800 650 / 650 Balance -775 / -775 -550 / -550 -330 / -330 Weight 127.3 kg
[2018-06-08] MEDS: Chlorhexidine Rinse 15 ML MOUTHWASH MM SCH ×2 (10:53→20:27)
[2018-06-08] MEDS: Furosemide 40 MG/4 ML VIAL IVP SCH ×2 (10:53→17:24)
[2018-06-08] MEDS: Docusate Oral Soln 100 MG/10 ML UDC GTUBE SCH (10:54)
[2018-06-08] MEDS: Nystatin POWDER 30 GM BOTTLE TP SCH ×3 (10:54→20:28)
[2018-06-08] MEDS ORDERED: *HR* Rivaroxaban 10 MG TABLET PO SCH (17:00)
[2018-06-08] MEDS ORDERED: Insulin LISPRO 300 UNITS/3 ML VIAL SQ SCH (21:00)
[2018-06-08] MEDS ORDERED: Insulin DETEMIR 100 UNIT/ML X5UNITS SQ SCH (21:00)
[2018-06-09] MEDS: Levalbuterol Neb 1.25 MG/3 ML IH SCH ×4 (03:34→22:01)
[2018-06-09 04:16] LABS: Hematocrit 28.4 % (35.3-44.9); Hemoglobin 8.3 g/dL (11.5-15.4); Immature Granulocytes % 0.5 % (0-4); Lymphocytes # 0.2 K/mcL (0.6-4.6); Lymphocytes % 3.2 %; Mean Corpuscular HGB Conc 29.2 g/dL (31.6-35.5); Mean Corpuscular Hemoglobin 28.7 pg (28.0-33.3); Mean Corpuscular Volume 98.3 fL (83.0-100.0); Mean Platelet Volume 11.7 fL (9.4-12.4); Monocytes # 0.4 K/mcL (0.0-1.3); Monocytes % 5.6 %; Platelet Count 147 K/mcL (140-400); Red Blood Count 2.89 M/mcL (3.82-4.97); Red Cell Distribution Width 15.9 % (11.5-14.5); Segmented Neutrophils % 90.7 %
[2018-06-09 04:40] LABS: Potassium 3.8 mEq/L (3.5-5.1)
[2018-06-09] MEDS: Famotidine 20 MG/2 ML VIAL IVP SCH (05:32)
[2018-06-09] MEDS: Amiodarone Premix 360 MG/200 ML BAG IVC SCH (05:32)
--- NOTE | 2018-06-09 06:33 | Pulmonology Progress Note ---
<MarjAlfonso M - Last Filed: 06/09/18 09:33> Date of Encounter: 06/09/18 Objective PUL Vital signs: Last Vital Signs Temp 97.8 F 06/09/18 04:29 Pulse 112 06/09/18 09:00 Resp 24 06/09/18 09:00 BP 113/56 06/09/18 09:00 Pulse Ox 96 06/09/18 09:00 Results - Laboratory Findings CBC and BMP: 06/09/18 04:00 06/09/18 04:00 ABG ABG pH 7.48 pH Units (7.32-7.45) H 06/08/18 04:48 ABG pCO2 50 mmHg (35-45) H 06/08/18 04:48 ABG pO2 72 mmHg (85-104) L 06/08/18 04:48 ABG O2 Saturation 95 % (95-98) 06/08/18 04:48 PT/INR, D-dimer PT 13.6 Seconds (9.4-12.1) H 06/06/18 17:26 Abnormal lab findings: Abnormal lab results RBC 2.89 M/mcL (3.82-4.97) L 06/09/18 04:00 Hgb 8.3 g/dL (11.5-15.4) L 06/09/18 04:00 Hct 28.4 % (35.3-44.9) L 06/09/18 04:00 MCHC 29.2 g/dL (31.6-35.5) L 06/09/18 04:00 RDW 15.9 % (11.5-14.5) H 06/09/18 04:00 Lymphocytes # 0.2 K/mcL (0.6-4.6) L 06/09/18 04:00 Platelet Estimate Slight Decrease (Normal) L 06/08/18 04:00 Polychromasia 1+ (Not Present) A 06/06/18 18:09 Hypochromasia Present (Not Present) A 06/06/18 18:09 Anisocytosis 1+ (Not Present) A 06/07/18 04:21 Stomatocytes 2+ (Not Present) A 06/06/18 18:09 PT 13.6 Seconds (9.4-12.1) H 06/06/18 17:26 ABG pH 7.48 pH Units (7.32-7.45) H 06/08/18 04:48 ABG pCO2 50 mmHg (35-45) H 06/08/18 04:48 ABG pO2 72 mmHg (85-104) L 06/08/18 04:48 ABG HCO3 38 mEq/L (21-27) H 06/08/18 04:48 ABG Total CO2 39 mEq/L (20-26) H 06/08/18 04:48 ABG Base Excess 13 mEq/L (-2 to 3) H 06/08/18 04:48 VBG pH 7.13 pH Units (7.32-7.42) L* 06/06/18 17:54 VBG pCO2 131 mmHg (41-51) H* 06/06/18 17:54 VBG pO2 61 mmHg (25-50) H 06/06/18 17:54 VBG HCO3 44 mEq/L (21-27) H 06/06/18 17:54 Chloride 93 mEq/L (98-107) L 06/09/18 04:00 Carbon Dioxide 40 mEq/L (23-29) H* 06/09/18 04:00 BUN 40 mg/dL (8-23) H 06/09/18 04:00 Creatinine 1.47 mg/dL (0.60-1.20) H 06/09/18 04:00 Est GFR ( Amer) 44 (> 60) L 06/09/18 04:00 Est GFR (Non-Af Amer) 36 (> 60) L 06/09/18 04:00 BUN/Creatinine Ratio 27 (6-26) H 06/09/18 04:00 Glucose 258 mg/dL (70-105) H 06/09/18 04:00 POC Glucose 245 mg/dL (70-99) H 06/09/18 07:13 Calculated Osmolality 311 (280-300) H 06/09/18 04:00 Calcium 8.0 mg/dL (8.6-10.3) L 06/09/18 04:00 AST 8 Units/L (13-39) L 06/07/18 04:21 Alkaline Phosphatase 156 Units/L (34-104) H 06/07/18 04:21 B-Natriuretic Peptide 581 pg/mL (Less than 100) H 06/06/18 17:26 Serum Total Protein 5.9 g/dL (6.4-8.9) L 06/07/18 04:21 Albumin 2.8 g/dL (3.5-5.7) L 06/07/18 04:21 Albumin/Globulin Ratio 0.9 (1.1-2.2) L 06/07/18 04:21 Urine Clarity Turbid (Clear) A 06/06/18 18:22 Urine Protein 100 mg/dL (Neg-Trace) H 06/06/18 18:22 Urine Blood Large (Negative) H 06/06/18 18:22 Ur Leukocyte Esterase Large (Negative) H 06/06/18 18:22 Urine Microscopic RBC TNTC per hpf (0-3) H 06/06/18 18:22 Urine Microscopic WBC TNTC per hpf (0-3) H 06/06/18 18:22 Ur Squamous Epith Cells Many per lpf (None-Few) H 06/06/18 18:22 Urine Bacteria Many per hpf (None-Few) H 06/06/18 18:22 Ur Culture Indicated? NO. (NO) A 06/06/18 18:22 - Clinical Findings Intake & Output: Intake & Output 06/08/18 06/09/18 06/09/18 23:59 07:59 15:59 Intake Total 200 / 200 200 / 200 300 / 300 Output Total 300 / 300 450 / 450 100 / 100 Balance -100 / -100 -250 / -250 200 / 200 Weight 130.3 kg Consult Discharge Plan - Plan Referrals: Aayush Chase MD [Primary Care Provider] - - Attending Attestation I examined this patient and my medical decision-making was reviewed with the Resident Physician. I agree with the documented findings, disposition and treatment plan as described except to the extent set forth below. Patient seen and examined. Labs, radiology, chart personally reviewed. Agree with resident's history and physical, assessment, plan with following comments: PREDICTIVE MAINTENANCE SPECIALIST: Patient follows commands, Pulmonary: Acceptable oxygenation and ventilation on that noninvasive ventilation. Patient needs mobilization and incentive spirometry. Patient can be transferred to [facility]. Cardiovascular: stable and resume home medication with diuresis. GI: Nutrition per dietary and GI prophylaxis per routine Heme: DVT prophylaxis per routine ID: Continue antibiotics and plan to de-escalation Renal; urine out put and renal funtion reviewed Endorcine: blood glucose is monitored Lines: all lines checked and no evidence of infections Skin: skin care to prevent pressure ulcers per nursing routine care <Olegario Bustos - Last Filed: 06/09/18 11:44> Date of Encounter: 06/09/18 Time of Encounter: 06:30 Assessment and Plan (1) Acute on chronic respiratory failure with hypoxia and hypercapnia Current Visit: Yes Status: Acute 62 year old woman brought from [facility] for SOB and confusion. She was intubated in the ED for acute on chronic resp failure and admitted to the ICU. She was discharged on 05/24/18 for acute resp failure. This is likely 2/2 acute on chronic diastolic HF and not pneumonia or COPD exacerbation. Most recent ABG on vent at 30% O2, pH 7.48, pCO2 50, pO2 72, HCO3 32, and BE 13. BNP 581. Today' s cxr mostly unchanged from yesterday that showed L basilar consolidation, chronic R hemidiaphragm elevation, low lung volumes, L sided pleural effusion that is unchanged with associated airspace disease. She is afebrile, without leukocytosis or lactic acidosis. Lasix 40mg IV BID. K 3.8 this morning after replacement yst. Glasgow in place. Extubated yst. Fluctuates between BiPAP and nc. She tolerates nc well when sitting up. Will increase time sitting rather than supine and have PT work with her. Transfer to today and continue diuresis. Spoke with Dr Story about transfer to hospitalist service. (2) Renal failure (ARF), acute on chronic Current Visit: Yes Status: Acute Baseline Cr ~1. Cr yst 1.38 and today is 1.47, down from high of 1.55. Will add albumin infusion and acetazolamide. Continue to monitor renal function for improvement while diuresing with lasix. Qualifiers: Acute renal failure type: unspecified Chronic kidney disease stage: stage 3 (moderate) Qualified Code(s): N17.9 - Acute kidney failure, unspecified; N18.3 - Chronic kidney disease, stage 3 (moderate) (3) Diastolic CHF Current Visit: Yes Status: Chronic Hx of diastolic HF. ECHO on 05/02/18 EF 50-55% with determinant diastolic dysfunction, severe L atrial enlargement, and mild pulm HTN. Glasgow in place and ins/out -575ml yst and -250 so far today. LE edema unchanged from yst. On 40mg IV lasix BID. Added albumin infusion and acetazolamide. Will monitor fluid status, renal function, urine output, electrolytes, resp status on BiPAP/nc and BP with continued diuresis. Will increase time sitting up rather than supine. Qualifiers: Heart failure chronicity: acute on chronic Qualified Code(s): I50.33 - Acute on chronic diastolic (congestive) heart failure (4) Afib Current Visit: Yes Status: Chronic Hx of afib, afib in ED and continued afib today. On 180mg ER diltiazem at home. Will dc amiodarone drip today and continue 60mg diltiazem IV q8h. Continue xeralto for anticoagulation. Qualifiers: Atrial fibrillation type: chronic Qualified Code(s): I48.2 - Chronic atrial fibrillation (5) COPD (chronic obstructive pulmonary disease) Current Visit: No Status: Chronic Hx of COPD. No signs of infection or exacerbation. More likely fluid related. Blood cultures pending, Abx and IV steroids stopped yst. Qualifiers: COPD type: COPD with acute exacerbation Qualified Code(s): J44.1 - Chronic obstructive pulmonary disease with (acute) exacerbation (6) Anemia Current Visit: No Status: Chronic Hemoglobin last admission on 05/23/18 remained stable at ~8.9. Folate and B12 normal at that time. Recent EGD and colonoscopy negative for bleeding. Hgb remaining stable, was 8.6 hct 31 at admission, yst hgb 7.6 hct 25 and today hgb 8.3, hct 28.4. Do not think she is actively bleeding but more a chronic anemia. Will continue to monitor. Qualifiers: Anemia type: unspecified type Qualified Code(s): D64.9 - Anemia, unspecified (7) Diabetes Current Visit: Yes Status: Chronic Hx of insulin dependance at home. Has diet now along with basal and achs insulin. BMP glucose 258 today. Will increase basal from 20-30 units. 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 R hemidiaphragm paralysis and hiatal hernia. 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 Qualifiers: Obstruction and gangrene presence: without obstruction or gangrene Qualified Code(s): K44.9 - Diaphragmatic hernia without obstruction or gangrene (10) AIMEE (obstructive sleep apnea) Current Visit: Yes Status: Chronic Hx of AIMEE. On vent now but NIV when extubated. (11) DVT prophylaxis Current Visit: Yes Status: Acute Chemical prophylaxis with xeralto (12) Morbid obesity Current Visit: No Status: Chronic BMI 52.5. Recommend lifestyle modifications at dc Subjective Principal diagnosis: Acute resp failure Interval history: Nothing acute reported overnight. She is doing better today. She says she is breathing better today. Was wearing BiPAP intermittently during day and was on BiPAP overnight. She was doing well yst while sitting up with nc on. Objective PUL Vital signs: Last Vital Signs Temp 97.8 F 06/09/18 04:29 Pulse 85 06/09/18 06:00 Resp 14 06/09/18 06:00 BP 117/57 06/09/18 06:00 Pulse Ox 97 06/09/18 06:00 General appearance: no acute distress, asleep (easily arrousable with voice), other (on BiPAP) Eyes: nonicteric ENT: oropharynx moist Auscultation: left: diminished breath sounds, right: clear Cardiovascular: irregular rhythm Gastrointestinal: normoactive bowel sounds, soft, non-tender Extremities: no cyanosis, edema (Bilateral LE, unchanged from yst) mood appropriate Results - Laboratory Findings CBC and BMP: 06/09/18 04:00 06/09/18 04:00 ABG ABG pH 7.48 pH Units (7.32-7.45) H 06/08/18 04:48 ABG pCO2 50 mmHg (35-45) H 06/08/18 04:48 ABG pO2 72 mmHg (85-104) L 06/08/18 04:48 ABG O2 Saturation 95 % (95-98) 06/08/18 04:48 PT/INR, D-dimer PT 13.6 Seconds (9.4-12.1) H 06/06/18 17:26 Abnormal lab findings: Abnormal lab results RBC 2.89 M/mcL (3.82-4.97) L 06/09/18 04:00 Hgb 8.3 g/dL (11.5-15.4) L 06/09/18 04:00 Hct 28.4 % (35.3-44.9) L 06/09/18 04:00 MCHC 29.2 g/dL (31.6-35.5) L 06/09/18 04:00 RDW 15.9 % (11.5-14.5) H 06/09/18 04:00 Lymphocytes # 0.2 K/mcL (0.6-4.6) L 06/09/18 04:00 Platelet Estimate Slight Decrease (Normal) L 06/08/18 04:00 Polychromasia 1+ (Not Present) A 06/06/18 18:09 Hypochromasia Present (Not Present) A 06/06/18 18:09 Anisocytosis 1+ (Not Present) A 06/07/18 04:21 Stomatocytes 2+ (Not Present) A 06/06/18 18:09 PT 13.6 Seconds (9.4-12.1) H 06/06/18 17:26 ABG pH 7.48 pH Units (7.32-7.45) H 06/08/18 04:48 ABG pCO2 50 mmHg (35-45) H 06/08/18 04:48 ABG pO2 72 mmHg (85-104) L 06/08/18 04:48 ABG HCO3 38 mEq/L (21-27) H 06/08/18 04:48 ABG Total CO2 39 mEq/L (20-26) H 06/08/18 04:48 ABG Base Excess 13 mEq/L (-2 to 3) H 06/08/18 04:48 VBG pH 7.13 pH Units (7.32-7.42) L* 06/06/18 17:54 VBG pCO2 131 mmHg (41-51) H* 06/06/18 17:54 VBG pO2 61 mmHg (25-50) H 06/06/18 17:54 VBG HCO3 44 mEq/L (21-27) H 06/06/18 17:54 Chloride 93 mEq/L (98-107) L 06/09/18 04:00 Carbon Dioxide 40 mEq/L (23-29) H* 06/09/18 04:00 BUN 40 mg/dL (8-23) H 06/09/18 04:00 Creatinine 1.47 mg/dL (0.60-1.20) H 06/09/18 04:00 Est GFR ( Amer) 44 (> 60) L 06/09/18 04:00 Est GFR (Non-Af Amer) 36 (> 60) L 06/09/18 04:00 BUN/Creatinine Ratio 27 (6-26) H 06/09/18 04:00 Glucose 258 mg/dL (70-105) H 06/09/18 04:00 POC Glucose 251 mg/dL (70-99) H 06/08/18 19:16 Calculated Osmolality 311 (280-300) H 06/09/18 04:00 Calcium 8.0 mg/dL (8.6-10.3) L 06/09/18 04:00 AST 8 Units/L (13-39) L 06/07/18 04:21 Alkaline Phosphatase 156 Units/L (34-104) H 06/07/18 04:21 B-Natriuretic Peptide 581 pg/mL (Less than 100) H 06/06/18 17:26 Serum Total Protein 5.9 g/dL (6.4-8.9) L 06/07/18 04:21 Albumin 2.8 g/dL (3.5-5.7) L 06/07/18 04:21 Albumin/Globulin Ratio 0.9 (1.1-2.2) L 06/07/18 04:21 Urine Clarity Turbid (Clear) A 06/06/18 18:22 Urine Protein 100 mg/dL (Neg-Trace) H 06/06/18 18:22 Urine Blood Large (Negative) H 06/06/18 18:22 Ur Leukocyte Esterase Large (Negative) H 06/06/18 18:22 Urine Microscopic RBC TNTC per hpf (0-3) H 06/06/18 18:22 Urine Microscopic WBC TNTC per hpf (0-3) H 06/06/18 18:22 Ur Squamous Epith Cells Many per lpf (None-Few) H 06/06/18 18:22 Urine Bacteria Many per hpf (None-Few) H 06/06/18 18:22 Ur Culture Indicated? NO. (NO) A 06/06/18 18:22 - Clinical Findings Intake & Output: Intake & Output 06/08/18 06/08/18 06/09/18 15:59 23:59 07:59 Intake Total 100 / 100 200 / 200 200 / 200 Output Total 300 / 300 300 / 300 450 / 450 Balance -200 / -200 -100 / -100 -250 / -250 Weight 130.3 kg
[2018-06-09] MEDS: Furosemide 40 MG/4 ML VIAL IVP SCH ×2 (08:36→16:29)
[2018-06-09] MEDS: Insulin LISPRO 300 UNITS/3 ML VIAL SQ SCH ×4 (08:43→20:09)
[2018-06-09] MEDS: Chlorhexidine Rinse 15 ML MOUTHWASH MM SCH (09:07)
[2018-06-09] MEDS: Nystatin POWDER 30 GM BOTTLE TP SCH ×3 (09:08→20:25)
[2018-06-09] MEDS ORDERED: Albumin 25% 25gram/100mL 25 GM/100 ML IV.SOLN IVPB ONE (10:24)
[2018-06-09] MEDS ORDERED: Furosemide 40 MG/4 ML VIAL IVP ONE (11:30)
[2018-06-09] MEDS ORDERED: Naloxone 0.4 MG/ML INJ IVP PRN (14:26)
[2018-06-09] MEDS ORDERED: *HR* Dextrose 50 % in Water (Syg) 50 ML SYRINGE IVP PRN (14:26)
[2018-06-09] MEDS ORDERED: D5% in Water 1,000 ML IVC PRN (14:26)
[2018-06-09] MEDS ORDERED: Dextrose Gel 15 GM/37.5 ML TUBE PO PRN ×2 (14:26)
[2018-06-09] MEDS: *HR* Rivaroxaban 15 MG TABLET PO SCH (16:29)
[2018-06-09] MEDS ORDERED: *HR* Rivaroxaban 15 MG TABLET PO SCH (17:00)
[2018-06-09] MEDS: Insulin DETEMIR 100 UNIT/ML X5UNITS SQ SCH (20:23)
[2018-06-09] MEDS ORDERED: Insulin DETEMIR 100 UNIT/ML X5UNITS SQ SCH (21:00)
[2018-06-10] MEDS: Gabapentin 300 MG CAPSULE PO SCH ×2 (01:18→21:06)
[2018-06-10] MEDS: Levalbuterol Neb 1.25 MG/3 ML IH SCH ×4 (03:34→21:47)
[2018-06-10 05:16] LABS: Hematocrit 27.5 % (35.3-44.9); Hemoglobin 8.1 g/dL (11.5-15.4); Immature Granulocytes % 0.3 % (0-4); Lymphocytes # 0.8 K/mcL (0.6-4.6); Lymphocytes % 12.3 %; Mean Corpuscular HGB Conc 29.5 g/dL (31.6-35.5); Mean Corpuscular Hemoglobin 29.3 pg (28.0-33.3); Mean Corpuscular Volume 99.6 fL (83.0-100.0); Mean Platelet Volume 11.4 fL (9.4-12.4); Monocytes # 0.4 K/mcL (0.0-1.3); Monocytes % 6.8 %; Platelet Count 138 K/mcL (140-400); Red Blood Count 2.76 M/mcL (3.82-4.97); Red Cell Distribution Width 15.9 % (11.5-14.5); Segmented Neutrophils % 80.6 %
[2018-06-10 05:32] LABS: Calcium 8.3 mg/dL (8.6-10.3); Potassium 3.1 mEq/L (3.5-5.1)
[2018-06-10] MEDS: Insulin LISPRO 300 UNITS/3 ML VIAL SQ SCH ×4 (07:32→21:00)
[2018-06-10] MEDS: Furosemide 40 MG/4 ML VIAL IVP SCH ×2 (08:28→15:49)
[2018-06-10] MEDS: Nystatin POWDER 30 GM BOTTLE TP SCH ×3 (08:36→21:07)
--- NOTE | 2018-06-10 13:04 | Internal Med Progress Note ---
Hospitalist Progress Note - Encounter Date of Encounter: 06/10/18 Time of Encounter: 12:52 - Subjective Interval History: Patient new to me today. Patient presented with respiratory failure and was intubated. Extubated and sent to stepdown floor. Patient being treated for heart failure exacerbation and being diuresed. No acute overnight events. Patient alternating between nasal cannula and BiPAP as needed. Currently on 2 L via nasal cannula. Patient states that she feels like she is progressing nearly back to her baseline. Patient states she feels tired. Patient denies any chest pain, cough, n/v/d, melana, hematochezia. - Exam Vitals: Temp Pulse Resp BP Pulse Ox 98.0 F 81 20 116/63 99 06/10/18 11:40 06/10/18 11:40 06/10/18 11:40 06/10/18 11:40 06/10/18 11:40 Exam: Constitutional: No acute distress, Alert Psych: AAO x 3 HEENT: NCAT, EOMI Neck: supple, jvd difficult to appreciate Cardio: irregularly irregular and rate controlled, +s1s2 Resp: decrease breath sounds in bases; rales in bases Abd: soft, non tender/non distended, positive bowel sounds Extremities: extensive lower extremity edema; pt states is improved Neuro: no focal deficits appreciated - Assessment and Plan (1) Acute on chronic respiratory failure with hypoxia and hypercapnia Current Visit: Yes Status: Acute Assessment and Plan: -from previous documetation: 06/09/18- 62-year-old female presented from [facility] for chief complaint of shortness of breath, along with confusion Patient was emergently intubated in the emergency room for acute on chronic respiratory failure and sent to ICU Presenting VBG pH 7.13, VBG PCO2 131 VBG PO2 61. Chest x-ray showed low lung volumes with left-sided pleural effusion associated airspace disease, cardiomegaly. No infiltrates visible. BNP 581 Lung exam Rales present bilaterally Patient's respiratory failure likely secondary to acute on chronic diastolic CHF exacerbation, COPD exacerbation. Patient's weight has increased according to family from 250 pounds to 275 pounds in the last week. Patient's ABG improved after intubation with pH 7.42 and PCO2 of 60. Patient does not have any signs of infiltrates on chest x-ray, white blood cell count is within normal limits, afebrile. Lactic acid within normal limits. Currently we are not suspecting pneumonia however patient did receive 1 dose of vancomycin and Levaquin on admission and if there are any signs of infection we will restart broad-spectrum antibiotics. Started patient on Lasix IV 40 mg daily, strict I's and O's, Deras catheter in place Patient also on Solu-Medrol 60 mg IV every 8 hours initially 06/10/18 Still with decompensated diastolic congestive heart failure complicated by phrenic nerve palsy and diaphragmatic hernia with copd -no current wheezing -continue IV Lasix bid; hopefully transition to orals soon -give additional dose of diamox today -bipap prn and qhs (2) Diastolic CHF Current Visit: Yes Status: Chronic Assessment and Plan: -Acute on chronic diastolic CHF -Echo completed on 05/02/2018 showed EF of 50-55% -Continue IV lasix BID; transition to oral lasix soon pending clinical status -Watch renal function carefully; developed marifer several times recently -Strict I's and O's; pt incontinent of urine; will replace deras temporarily for accurate I&Os -give additional dose of diamox today -bipap prn and qhs -AM bmp (3) Renal failure (ARF), acute on chronic Current Visit: Yes Status: Acute Assessment and Plan: Patient's baseline serum creatinine is around 1 -frequent AKIs recently -current MARIFER likely 2/2 decreased ECF 2/2 heart failure -improving with diuresis -will have to watch carefully as pt has devleoped MARIFER 2/2 diuretics -Presented with a serum creatinine of 1.55 and recieved IVF initially per chart review -Continue IV diuretic for now and will transition to orals tomorrow pending evaluation -bmp in am (4) Diabetes Current Visit: Yes Status: Chronic Assessment and Plan: -Continue home regimen -diabetic diet -monitor accuchecks -SSI (5) Diaphragmatic hernia Current Visit: Yes Status: Acute Assessment and Plan: -Patient has a history of phrenic nerve palsy and diaphragmatic hernia -chronic -bipap prn; has at home (6) AIMEE (obstructive sleep apnea) Current Visit: Yes Status: Chronic Assessment and Plan: -Hx of AIMEE and phrenic nerve palsy -Bipap prn; has at home (7) Afib Current Visit: Yes Status: Chronic Assessment and Plan: -rate controlled -continue cardizem -continue xarleto for AC (8) DVT prophylaxis Current Visit: Yes Status: Acute Assessment and Plan: Xarelto DVT Prophylaxis: Xarelto - Summary of Assessment and Plan Summary of Assessment and Plan: Continue Diuresis and carefully watch renal fxn. Devlelped MARIFER several times due to diuresis. Still volume overloaded. Will likely need ECF at dc; consult PT/OT - Time Spent with Patient Total time spent is greater than 50% in coordination of care (as documented) at patient's floor/unit and/or counseling patient: 25 - 35 minutes Plan of Care Discussed with: patient Internal Medicine: Result - Labs CBC & Chem 7: 06/10/18 04:00 06/10/18 04:00 Labs: Short CBC 06/10/18 Range/Units 04:00 WBC 6.2 (4.3-11.1) K/mcL Hgb 8.1 L (11.5-15.4) g/dL Hct 27.5 L (35.3-44.9) % Plt Count 138 L (140-400) K/mcL Neutrophils # 5.0 (1.6-8.9) K/mcL BMP 06/10/18 04:00 Sodium 143 Potassium 3.1 L Chloride 96 L Carbon Dioxide 40 H* BUN 39 H Creatinine 1.30 H Glucose 121 H Calcium 8.3 L - ABG Interpretation ABG results: ABG ABG pH 7.48 pH Units (7.32-7.45) H 06/08/18 04:48 ABG pCO2 50 mmHg (35-45) H 06/08/18 04:48 ABG pO2 72 mmHg (85-104) L 06/08/18 04:48 ABG O2 Saturation 95 % (95-98) 06/08/18 04:48 PT/INR, D-dimer PT 13.6 Seconds (9.4-12.1) H 06/06/18 17:26 - Impressions Impressions Chest X-Ray 06/08/18 04:00 IMPRESSION: Stable support lines and tubes. Left basilar consolidation and small left pleural effusion are unchanged. D/ / 06/08/2018 07:59:05 Mendy Lassiter MD / merry Interpreting Provider: Mendy Lassiter MD Consult Discharge Plan - Plan Referrals: Aayush Chase MD [Primary Care Provider] - (2) Diastolic CHF Qualifiers: Heart failure chronicity: acute on chronic Qualified Code(s): I50.33 - Acute on chronic diastolic (congestive) heart failure (3) Renal failure (ARF), acute on chronic Qualifiers: Acute renal failure type: unspecified Chronic kidney disease stage: stage 3 ( moderate) Qualified Code(s): N17.9 - Acute kidney failure, unspecified; N18.3 - Chronic kidney disease, stage 3 (moderate) (4) Diabetes Qualifiers: Diabetes mellitus type: type 2 Diabetes mellitus long term care pharmacist insulin use: without long term care pharmacist use Diabetes mellitus complication status: with kidney complications Diabetes mellitus complication detail: with chronic kidney disease Chronic kidney disease stage: stage 3 (moderate) Qualified Code(s): E11.22 - Type 2 diabetes mellitus with diabetic chronic kidney disease; N18.3 - Chronic kidney disease, stage 3 (moderate) (5) Diaphragmatic hernia Qualifiers: Obstruction and gangrene presence: without obstruction or gangrene Qualified Code(s): K44.9 - Diaphragmatic hernia without obstruction or gangrene (7) Afib Qualifiers: Atrial fibrillation type: chronic Qualified Code(s): I48.2 - Chronic atrial fibrillation
[2018-06-10] MEDS ORDERED: acetaZOLAMIDE 250 MG TABLET PO ONE (13:23)
[2018-06-10] MEDS: *HR* Rivaroxaban 15 MG TABLET PO SCH (15:49)
[2018-06-10] MEDS: Insulin DETEMIR 100 UNIT/ML X5UNITS SQ SCH (21:06)
[2018-06-11] MEDS: Levalbuterol Neb 1.25 MG/3 ML IH SCH ×4 (03:34→21:30)
[2018-06-11 04:11] LABS: Eosinophils % 0.2 %; Hematocrit 28.5 % (35.3-44.9); Hemoglobin 8.4 g/dL (11.5-15.4); Immature Granulocytes % 0.4 % (0-4); Lymphocytes # 0.9 K/mcL (0.6-4.6); Lymphocytes % 19.4 %; Mean Corpuscular HGB Conc 29.5 g/dL (31.6-35.5); Mean Corpuscular Hemoglobin 29.8 pg (28.0-33.3); Mean Corpuscular Volume 101.1 fL (83.0-100.0); Mean Platelet Volume 11.7 fL (9.4-12.4); Monocytes # 0.3 K/mcL (0.0-1.3); Neutrophils # 3.3 K/mcL (1.6-8.9); Platelet Count 130 K/mcL (140-400); Red Blood Count 2.82 M/mcL (3.82-4.97); Red Cell Distribution Width 15.8 % (11.5-14.5)
[2018-06-11 04:33] LABS: BUN/Creatinine Ratio 31 (6-26); Blood Urea Nitrogen 34 mg/dL (8-23); Calcium 8.5 mg/dL (8.6-10.3); Carbon Dioxide 44 mEq/L (23-29); Chloride 98 mEq/L (98-107); Glucose 65 mg/dL (70-105); Magnesium 2.2 mg/dL (1.6-2.6); Osmolality,Calculated 308 (280-300); Phosphorous 3.6 mg/dL (2.7-4.5); Sodium 146 mEq/L (136-145); eGFR For Non-African Americans 51 (> 60)
[2018-06-11] MEDS: Insulin LISPRO 300 UNITS/3 ML VIAL SQ SCH ×4 (07:31→21:26)
[2018-06-11] MEDS: Nystatin POWDER 30 GM BOTTLE TP SCH ×3 (07:45→21:27)
[2018-06-11] MEDS: Furosemide 40 MG/4 ML VIAL IVP SCH (07:45)
--- NOTE | 2018-06-11 09:23 | Internal Med Progress Note ---
Hospitalist Progress Note - Encounter Date of Encounter: 06/11/18 Time of Encounter: 09:21 - Subjective Interval History: No acute overnight events. Patient alternating between nasal cannula and BiPAP as needed. Currently on 2 L via nasal cannula. Pt states shes doing better. Breathing close to baseline. No chest pain, nausea, vomiting, diarrhea, fevers. Continues to have orthopnea. - Exam Vitals: Temp Pulse Resp BP Pulse Ox 98.0 F 92 18 112/68 96 06/11/18 07:26 06/11/18 07:26 06/11/18 07:26 06/11/18 07:06/11/18 07:26 Exam: Constitutional: No acute distress, Alert Psych: AAO x 3 Neck: supple, jvd difficult to appreciate Cardio: irregularly irregular and rate controlled, +s1s2 Resp: decrease breath sounds in bases; rales in bases Abd: soft, non tender/non distended Extremities: extensive lower extremity edema slowly improving Neuro: no focal deficits appreciated - Assessment and Plan (1) Acute on chronic respiratory failure with hypoxia and hypercapnia Current Visit: Yes Status: Acute Assessment and Plan: -Respiratory failure improving -still with decompensated HF but improving -change to daily IV lasix for 1-2 days then orals if renal function tolertates -bipap prn and qhs -duonebs as needed (2) Diastolic CHF Current Visit: Yes Status: Chronic Assessment and Plan: -Acute on chronic diastolic CHF -Echo completed on 05/02/2018 showed EF of 50-55% -Continue IV lasix, change to daily for 1-2 days then hopefully orals if renal fxn tolerates; serum cr improved today -Watch renal function carefully; developed marifer several times recently -Strict I's and O's -serum bicarb increasing with volume contraction; continue diamox for 5 more doses bid; recieved one yesterday -bipap prn and qhs -AM bmp (3) Renal failure (ARF), acute on chronic Current Visit: Yes Status: Acute Assessment and Plan: Patient's baseline serum creatinine is around 1 -frequent AKIs recently -current MARIFER likely 2/2 decreased ECF 2/2 heart failure -improving with diuresis; SCr down to 1.08 today -will have to watch carefully as pt has devleoped MARIFER 2/2 diuretics -Presented with a serum creatinine of 1.55 and recieved IVF initially per chart review -Continue IV diuretic for now but chaning to daily dosing -bmp in am (4) Diabetes Current Visit: Yes Status: Chronic Assessment and Plan: -Continue home regimen -hypoglycemic this am; asymtomatic -decrease levimir to 25units at night -diabetic diet -monitor accuchecks -SSI (5) Diaphragmatic hernia Current Visit: Yes Status: Acute Assessment and Plan: -Patient has a history of phrenic nerve palsy and diaphragmatic hernia -chronic -bipap prn; has at home (6) AIMEE (obstructive sleep apnea) Current Visit: Yes Status: Chronic Assessment and Plan: -Hx of AIMEE and phrenic nerve palsy -Bipap prn; has at home (7) Afib Current Visit: Yes Status: Chronic Assessment and Plan: -rate controlled -continue cardizem -continue xarleto for AC (8) DVT prophylaxis Current Visit: Yes Status: Acute Assessment and Plan: Xarelto DVT Prophylaxis: Xarelto - Time Spent with Patient Total time spent is greater than 50% in coordination of care (as documented) at patient's floor/unit and/or counseling patient: 25 - 35 minutes Internal Medicine: Result - Labs CBC & Chem 7: 06/11/18 03:50 06/11/18 03:50 Labs: Short CBC 06/11/18 Range/Units 03:50 WBC 4.5 (4.3-11.1) K/mcL Hgb 8.4 L (11.5-15.4) g/dL Hct 28.5 L (35.3-44.9) % Plt Count 130 L (140-400) K/mcL Neutrophils # 3.3 (1.6-8.9) K/mcL BMP 06/11/18 03:50 Sodium 146 H Potassium 3.0 L Chloride 98 Carbon Dioxide 44 H* BUN 34 H Creatinine 1.08 Glucose 65 L Calcium 8.5 L - ABG Interpretation ABG results: ABG ABG pH 7.48 pH Units (7.32-7.45) H 06/08/18 04:48 ABG pCO2 50 mmHg (35-45) H 06/08/18 04:48 ABG pO2 72 mmHg (85-104) L 06/08/18 04:48 ABG O2 Saturation 95 % (95-98) 06/08/18 04:48 PT/INR, D-dimer PT 13.6 Seconds (9.4-12.1) H 06/06/18 17:26 Consult Discharge Plan - Plan Referrals: Aayush Chase MD [Primary Care Provider] - (2) Diastolic CHF Qualifiers: Heart failure chronicity: acute on chronic Qualified Code(s): I50.33 - Acute on chronic diastolic (congestive) heart failure (3) Renal failure (ARF), acute on chronic Qualifiers: Acute renal failure type: unspecified Chronic kidney disease stage: stage 3 ( moderate) Qualified Code(s): N17.9 - Acute kidney failure, unspecified; N18.3 - Chronic kidney disease, stage 3 (moderate) (4) Diabetes Qualifiers: Diabetes mellitus type: type 2 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 insulin use: without terminal operations supervisor use Diabetes mellitus complication status: with kidney complications Diabetes mellitus complication detail: with chronic kidney disease Chronic kidney disease stage: stage 3 (moderate) Qualified Code(s): E11.22 - Type 2 diabetes mellitus with diabetic chronic kidney disease; N18.3 - Chronic kidney disease, stage 3 (moderate) (5) Diaphragmatic hernia Qualifiers: Obstruction and gangrene presence: without obstruction or gangrene Qualified Code(s): K44.9 - Diaphragmatic hernia without obstruction or gangrene (7) Afib Qualifiers: Atrial fibrillation type: chronic Qualified Code(s): I48.2 - Chronic atrial fibrillation
[2018-06-11] MEDS: acetaZOLAMIDE 250 MG TABLET PO SCH ×2 (11:14→21:26)
[2018-06-11] MEDS: *HR* Rivaroxaban 15 MG TABLET PO SCH (17:13)
[2018-06-11] MEDS: Gabapentin 300 MG CAPSULE PO SCH (21:26)
[2018-06-11] MEDS: Insulin DETEMIR 100 UNIT/ML X5UNITS SQ SCH (21:27)
[2018-06-12] MEDS: Levalbuterol Neb 1.25 MG/3 ML IH SCH ×4 (03:33→21:38)
[2018-06-12 05:07] LABS: Lymphocytes % 15.7 %; Platelet Count 133 K/mcL (140-400)
[2018-06-12 05:09] LABS: Hematocrit 29.9 % (35.3-44.9); Hemoglobin 8.6 g/dL (11.5-15.4); Immature Granulocytes % 0.6 % (0-4); Lymphocytes # 0.7 K/mcL (0.6-4.6); Mean Corpuscular HGB Conc 28.8 g/dL (31.6-35.5); Mean Corpuscular Hemoglobin 29.3 pg (28.0-33.3); Mean Corpuscular Volume 101.7 fL (83.0-100.0); Mean Platelet Volume 11.8 fL (9.4-12.4); Monocytes # 0.4 K/mcL (0.0-1.3); Monocytes % 8.4 %; Neutrophils # 3.5 K/mcL (1.6-8.9); Red Blood Count 2.94 M/mcL (3.82-4.97); Red Cell Distribution Width 15.6 % (11.5-14.5); Segmented Neutrophils % 75.3 %
[2018-06-12 05:23] LABS: BUN/Creatinine Ratio 29 (6-26); Blood Urea Nitrogen 29 mg/dL (8-23); Calcium 8.8 mg/dL (8.6-10.3); Carbon Dioxide 42 mEq/L (23-29); Chloride 99 mEq/L (98-107); Glucose 176 mg/dL (70-105); Magnesium 2.1 mg/dL (1.6-2.6); Osmolality,Calculated 308 (280-300); Phosphorous 3.5 mg/dL (2.7-4.5); Potassium 3.5 mEq/L (3.5-5.1); Sodium 144 mEq/L (136-145); eGFR For Non-African Americans 57 (> 60)
[2018-06-12 06:30] LABS: Hypochromasia Present (Not Present); Platelet Estimate Normal (Normal)
[2018-06-12] MEDS: Insulin LISPRO 300 UNITS/3 ML VIAL SQ SCH ×4 (07:35→20:24)
[2018-06-12] MEDS: acetaZOLAMIDE 250 MG TABLET PO SCH ×2 (07:52→20:25)
[2018-06-12] MEDS: Nystatin POWDER 30 GM BOTTLE TP SCH ×3 (07:53→20:24)
[2018-06-12] MEDS: Furosemide 40 MG/4 ML VIAL IVP SCH (07:53)
--- NOTE | 2018-06-12 11:42 | Internal Med Progress Note ---
Hospitalist Progress Note - Encounter Date of Encounter: 06/12/18 Time of Encounter: 11:23 - Subjective Interval History: Patient seen and examined at bedside. Patient no acute overnight events. Patient on BiPAP currently. Patient states she has not had any chest pain, nausea, vomiting, diarrhea. Patient states her breathing continues to progress near her baseline. Afebrile. - Exam Vitals: Temp Pulse Resp BP Pulse Ox 97.9 F 84 19 124/59 94 06/12/18 07:23 06/12/18 07:23 06/12/18 11:10 06/12/18 11:10 06/12/18 11:10 Exam: Constitutional: No acute distress, Alert, son at bedside, pt on bipap Psych: AAO x 3 Neck: supple, jvd difficult to appreciate Cardio: irregularly irregular and rate controlled, +s1s2 Resp: decrease breath sounds in bases; rales in bases Abd: soft, non tender/non distended Extremities: extensive lower extremity edema slowly improving Neuro: no focal deficits appreciated - Assessment and Plan (1) Acute on chronic respiratory failure with hypoxia and hypercapnia Current Visit: Yes Status: Acute Assessment and Plan: -Respiratory failure improving; approaching baseline -still with decompensated HF but improving -continue IV lasix daily for another 1-2 days and then transition to orals if renal funxtion tolerates -bipap prn and qhs -duonebs as needed (2) Diastolic CHF Current Visit: Yes Status: Chronic Assessment and Plan: -Acute on chronic diastolic CHF -Echo completed on 05/02/2018 showed EF of 50-55% -Continue IV lasix, daily for 1-2 additional days and transition to orals if renal function tolerates -Watch renal function carefully; developed marifer several times recently with diuresis -Strict I's and O's -serum bicarb elevated with volume contraction; improved today, continue diamox for 6 total doses -bipap prn and qhs -AM bmp (3) Renal failure (ARF), acute on chronic Current Visit: Yes Status: Acute Assessment and Plan: Patient's baseline serum creatinine is around 1 -frequent AKIs recently -current MARIFER likely 2/2 decreased ECF 2/2 heart failure -improving with diuresis; SCr down to 0.99 -will have to watch carefully as pt has devleoped MARIFER 2/2 diuretics -Presented with a serum creatinine of 1.55 and recieved IVF initially per chart review -Continue IV diuretic for now -bmp in am (4) Diabetes Current Visit: Yes Status: Chronic Assessment and Plan: -Continue home regimen -hypoglycemic this am; asymtomatic -decrease levimir to 25units at night -diabetic diet -monitor accuchecks -SSI (5) Diaphragmatic hernia Current Visit: Yes Status: Acute Assessment and Plan: -Patient has a history of phrenic nerve palsy and diaphragmatic hernia -chronic -bipap prn; has at home (6) AIMEE (obstructive sleep apnea) Current Visit: Yes Status: Chronic Assessment and Plan: -Hx of AIMEE and phrenic nerve palsy -Bipap prn; has at home (7) Afib Current Visit: Yes Status: Chronic Assessment and Plan: -rate controlled -continue cardizem -continue xarleto for AC; hemoglobin stable -recent gi workup for anemia; xarelto restarted 1 month ago; hemoglobin has remained stable (8) DVT prophylaxis Current Visit: Yes Status: Acute Assessment and Plan: Xarelto DVT Prophylaxis: xarelto - Summary of Assessment and Plan Summary of Assessment and Plan: Continue Diuresis and carefully watch renal fxn. Devlelped MARIFER several times due to diuresis. Still volume overloaded. Keep on stepdown for now. Very high risk patient for complication and deterioration. Will likely need ECF at dc; consult PT/OT - Time Spent with Patient Total time spent is greater than 50% in coordination of care (as documented) at patient's floor/unit and/or counseling patient: 25 - 35 minutes Plan of Care Discussed with: patient Internal Medicine: Result - Labs CBC & Chem 7: 06/12/18 04:00 06/12/18 04:00 Labs: Short CBC 06/12/18 Range/Units 04:00 WBC 4.6 (4.3-11.1) K/mcL Hgb 8.6 L (11.5-15.4) g/dL Hct 29.9 L (35.3-44.9) % Plt Count 133 L (140-400) K/mcL Neutrophils # 3.5 (1.6-8.9) K/mcL BMP 06/12/18 04:00 Sodium 144 Potassium 3.5 Chloride 99 Carbon Dioxide 42 H* BUN 29 H Creatinine 0.99 Glucose 176 H Calcium 8.8 - ABG Interpretation ABG results: ABG ABG pH 7.48 pH Units (7.32-7.45) H 06/08/18 04:48 ABG pCO2 50 mmHg (35-45) H 06/08/18 04:48 ABG pO2 72 mmHg (85-104) L 06/08/18 04:48 ABG O2 Saturation 95 % (95-98) 06/08/18 04:48 PT/INR, D-dimer PT 13.6 Seconds (9.4-12.1) H 06/06/18 17:26 Consult Discharge Plan - Plan Referrals: Aayush Chase MD [Primary Care Provider] - (2) Diastolic CHF Qualifiers: Heart failure chronicity: acute on chronic Qualified Code(s): I50.33 - Acute on chronic diastolic (congestive) heart failure (3) Renal failure (ARF), acute on chronic Qualifiers: Acute renal failure type: unspecified Chronic kidney disease stage: stage 3 ( moderate) Qualified Code(s): N17.9 - Acute kidney failure, unspecified; N18.3 - Chronic kidney disease, stage 3 (moderate) (4) Diabetes Qualifiers: Diabetes mellitus type: type 2 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: without superintendent marine oil terminal use Diabetes mellitus complication status: with kidney complications Diabetes mellitus complication detail: with chronic kidney disease Chronic kidney disease stage: stage 3 (moderate) Qualified Code(s): E11.22 - Type 2 diabetes mellitus with diabetic chronic kidney disease; N18.3 - Chronic kidney disease, stage 3 (moderate) (5) Diaphragmatic hernia Qualifiers: Obstruction and gangrene presence: without obstruction or gangrene Qualified Code(s): K44.9 - Diaphragmatic hernia without obstruction or gangrene (7) Afib Qualifiers: Atrial fibrillation type: chronic Qualified Code(s): I48.2 - Chronic atrial fibrillation
--- NOTE | 2018-06-12 13:55 | Electrocardiograph Report ---
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
[2018-06-12] MEDS: *HR* Rivaroxaban 15 MG TABLET PO SCH (18:05)
[2018-06-12] MEDS: Gabapentin 300 MG CAPSULE PO SCH (20:24)
[2018-06-12] MEDS: Insulin DETEMIR 100 UNIT/ML X5UNITS SQ SCH (20:25)
[2018-06-13 03:55] LABS: Basophils % 0.2 %; Hematocrit 29.3 % (35.3-44.9); Hemoglobin 8.2 g/dL (11.5-15.4); Immature Granulocytes % 0.7 % (0-4); Lymphocytes # 0.8 K/mcL (0.6-4.6); Lymphocytes % 15.1 %; Mean Corpuscular Hemoglobin 28.6 pg (28.0-33.3); Mean Corpuscular Volume 102.1 fL (83.0-100.0); Mean Platelet Volume 11.5 fL (9.4-12.4); Monocytes # 0.5 K/mcL (0.0-1.3); Monocytes % 9.8 %; Platelet Count 139 K/mcL (140-400); Red Blood Count 2.87 M/mcL (3.82-4.97); Red Cell Distribution Width 15.3 % (11.5-14.5); Segmented Neutrophils % 74.2 %
[2018-06-13 04:13] LABS: BUN/Creatinine Ratio 29 (6-26); Blood Urea Nitrogen 27 mg/dL (8-23); Calcium 9.1 mg/dL (8.6-10.3); Carbon Dioxide 39 mEq/L (23-29); Chloride 101 mEq/L (98-107); Glucose 214 mg/dL (70-105); Osmolality,Calculated 310 (280-300); Phosphorous 3.4 mg/dL (2.7-4.5); Potassium 3.3 mEq/L (3.5-5.1); Sodium 144 mEq/L (136-145); eGFR For Non-African Americans > 60 (> 60)
[2018-06-13 04:16] LABS: Hypochromasia Present (Not Present); Platelet Estimate Slight Decrease (Normal); Polychromasia 1+ (Not Present)
[2018-06-13] MEDS: Levalbuterol Neb 1.25 MG/3 ML IH SCH ×4 (04:17→21:54)
[2018-06-13] MEDS ORDERED: Potassium Chloride Elixir 20 MEQ/15 ML UDC PO ONE (08:10)
[2018-06-13] MEDS: Furosemide 40 MG/4 ML VIAL IVP SCH (08:28)
[2018-06-13] MEDS: Nystatin POWDER 30 GM BOTTLE TP SCH ×3 (08:29→20:20)
[2018-06-13] MEDS: acetaZOLAMIDE 250 MG TABLET PO SCH (08:29)
[2018-06-13] MEDS: Insulin LISPRO 300 UNITS/3 ML VIAL SQ SCH ×4 (08:30→17:33)
[2018-06-13] MEDS: Piperacillin/Tazobactam 3.375 GM in 0.9 % Sodium Chloride Mini Bag 100 ML IVPB SCH ×2 (10:21→17:31)
--- NOTE | 2018-06-13 12:26 | Internal Med Progress Note ---
Hospitalist Progress Note - Encounter Date of Encounter: 06/13/18 Time of Encounter: 12:22 - Subjective Interval History: Patient seen and evaluated at bedside, reports improvement in her symptoms, states that her respiratory status has significantly improved, denies shortness of breath, chest pain. And recalls that she is close to her baseline. Denies urinary symptoms. But reports increase in productive cough of clear sputum. Denies fevers or chills. - Exam Vitals: Temp Pulse Resp BP Pulse Ox 97.1 F L 82 17 118/58 98 06/13/18 11:21 06/13/18 11:21 06/13/18 11:21 06/13/18 11:21 06/13/18 11:21 Exam: General: Patient is alert, oriented, no acute distress, speaks in full sentences Head: atraumatic, normocephalic, Respiratory: Good respiratory effort. Bilateral breath sounds are decrease with occasional crackles and rales in the posterior lung desai, no wheezing, Cardiovascular: Irregular, s1 and s2 No, rubs, gallops, or murmors. Abdomen: Obese, Bowel sounds present normoactive x-4 quadrants. Abdomen is soft , No guarding or rebound. Musculoskeletal: Spontaneously moving all extremities. 3+ pitting edema in the lower extremities., no calf tenderness Neuro: Alert and oriented x4. Psych: Patient's affect is normal - Assessment and Plan (1) Acute on chronic respiratory failure with hypoxia and hypercapnia Current Visit: Yes Status: Acute Assessment and Plan: Patient alternating from BiPAP to oxygen by nasal cannula. In no respiratory distress. Plan: - Continue current plan of care - Will discuss with pulmonology discharge planning (2) Diastolic CHF Current Visit: Yes Status: Chronic Assessment and Plan: Bodily anasarca. crackles and rales at both lungs bases on auscultation. Overall 7 litters negative. Plan: - We will continue with current Lasix dose of 40 mg daily. - Water restriction to 1.5 L daily - strict intake and output. - Patient would benefit from at least 24 more hours of diuresis before discharge (3) Diabetes Current Visit: Yes Status: Chronic Assessment and Plan: Blood sugars are optimally controlled. Plan: - will change Levemir to 15 mg twice a day - Lispro 5 units before meals - Lispro high dose sliding scale - (4) AIMEE (obstructive sleep apnea) Current Visit: Yes Status: Chronic Assessment and Plan: Plan: - On nocturnal BiPap (5) Afib Current Visit: Yes Status: Chronic Assessment and Plan: With High [id number] score. Rate controlled Plan: - Continue Xarelto 15mg PO daily - rate controlled with cardizem 60mg PO Q8HRs (6) Renal failure (ARF), acute on chronic Current Visit: Yes Status: Resolved Assessment and Plan: Kidney function has improved. Plan: - Continue diuresis - Avoid nephrotoxic medications (7) COPD (chronic obstructive pulmonary disease) Current Visit: No Status: Chronic Assessment and Plan: Patient reports increasing clear sputum production. No fever or chills, no shortness of breath. Plan: - Continue Levalbuterol Nebs Q6RT - Will continue to follow manhole builder recommendations (8) DVT prophylaxis Current Visit: Yes Status: Acute Assessment and Plan: High risk of DVT due to body habitus plus low mobility Plan: - On full dose anticoagulation due to A.Fib (9) Urinary tract infection Current Visit: No Status: Resolved Assessment and Plan: Patient denied urinary symptoms. Urine cultures grew multidrug resistant Proteus. Plan: - Started on Piperacillin/tazobactam based on urine culture sensitivity - As patient asymptomatic will discussed with ID whether patient needs to be on antibiotics coverage or not. (10) Hypokalemia Current Visit: Yes Status: Acute Assessment and Plan: Possible due to Diuresis Plan: - Electrolyte replaced - f/u am BMP (11) Anemia Current Visit: No Status: Acute Assessment and Plan: No active signs of bleeding. Plan: - Continue monitoring H&H - will transfuse if Hb <7 or Hct <23 or patient becomes symptomatic - Summary of Assessment and Plan Summary of Assessment and Plan: Patient is seen in volume overload. Chronic hypoxemic and hypercapnic respiratory failure. Needs diuresis. PT/OT consulted pending evaluation for placement - Time Spent with Patient Total time spent is greater than 50% in coordination of care (as documented) at patient's floor/unit and/or counseling patient: Greater than 35 minutes Plan of Care Discussed with: patient Internal Medicine: Result - Labs CBC & Chem 7: 06/13/18 03:42 06/13/18 03:42 Labs: Short CBC 06/13/18 Range/Units 03:42 WBC 5.4 (4.3-11.1) K/mcL Hgb 8.2 L (11.5-15.4) g/dL Hct 29.3 L (35.3-44.9) % Plt Count 139 L (140-400) K/mcL Neutrophils # 4.0 (1.6-8.9) K/mcL BMP 06/13/18 03:42 Sodium 144 Potassium 3.3 L Chloride 101 Carbon Dioxide 39 H BUN 27 H Creatinine 0.94 Glucose 214 H Calcium 9.1 - ABG Interpretation ABG results: ABG ABG pH 7.48 pH Units (7.32-7.45) H 06/08/18 04:48 ABG pCO2 50 mmHg (35-45) H 06/08/18 04:48 ABG pO2 72 mmHg (85-104) L 06/08/18 04:48 ABG O2 Saturation 95 % (95-98) 06/08/18 04:48 PT/INR, D-dimer PT 13.6 Seconds (9.4-12.1) H 06/06/18 17:26 Consult Discharge Plan - Plan Referrals: Bessy Peng AU PAIR [Advanced Practice Nurse] - 06/21/18 4:00 pm (2) Diastolic CHF Qualifiers: Heart failure chronicity: acute on chronic Qualified Code(s): I50.33 - Acute on chronic diastolic (congestive) heart failure (3) Diabetes Qualifiers: Diabetes mellitus type: type 2 Diabetes mellitus fdc insulin use: without local company intermodal truck driver use Diabetes mellitus complication status: with kidney complications Diabetes mellitus complication detail: with chronic kidney disease Chronic kidney disease stage: stage 3 (moderate) Qualified Code(s): E11.22 - Type 2 diabetes mellitus with diabetic chronic kidney disease; N18.3 - Chronic kidney disease, stage 3 (moderate) (5) Afib Qualifiers: Atrial fibrillation type: chronic Qualified Code(s): I48.2 - Chronic atrial fibrillation (6) Renal failure (ARF), acute on chronic Qualifiers: Acute renal failure type: unspecified Chronic kidney disease stage: stage 3 ( moderate) Qualified Code(s): N17.9 - Acute kidney failure, unspecified; N18.3 - Chronic kidney disease, stage 3 (moderate) (7) COPD (chronic obstructive pulmonary disease) Qualifiers: COPD type: unspecified COPD Qualified Code(s): J44.9 - Chronic obstructive pulmonary disease, unspecified (9) Urinary tract infection Qualifiers: Urinary tract infection type: acute cystitis Hematuria presence: without hematuria Qualified Code(s): N30.00 - Acute cystitis without hematuria (11) Anemia Qualifiers: Anemia type: unspecified type Qualified Code(s): D64.9 - Anemia, unspecified
--- NOTE | 2018-06-13 13:58 | Infectious Disease Consult ---
Date of Encounter: 06/13/18 Time of Encounter: 13:57 Assessment and Plan (1) Morbid obesity with BMI of 50.0-59.9, adult Status: Acute (2) Acute exacerbation of chronic obstructive pulmonary disease (COPD) Status: Acute (3) Acute on chronic respiratory failure with hypoxia and hypercapnia Status: Acute (4) Phrenic nerve palsy Status: Chronic (5) Urinary tract infection Status: Resolved Assessment and plan: Asymptomatic bacteruria Cultures positive for Proteus mirabilis S:Ertapenem, zosyn, bactrim, trobramycin R:unasyn, aztreonam, cefazolin, cefepime, ceftazidime, ceftriaxone, tygacil and nitrofurantion At this point patient has No signs of infection and no Sepsis like picture I recommend d/cing antibiotics and observing patient needs to be in contact isolation for MDRO proteus; I asked Lucian RN to place patient in contact isolation if change in clinical picture after stopping antibiotics, we will be happy to reevaluate. Qualifiers: Urinary tract infection type: acute cystitis Hematuria presence: without hematuria Qualified Code(s): N30.00 - Acute cystitis without hematuria Infectious Disease HPI - Data of Consult Patient: new to practice Consult date: 06/13/18 Requesting Physician: Ish Graham MD Primary Care Provider: Aayush Chase MD - Consult Narrative Reason for consult: UTI History of present illness: Ms. Cox is a 62 year old female Patient is a 62-year-old woman who presented to [facility] on 06/06/2018 from a senior living facility with shortness of breath, we are consulted today on 01/2018 for multidrug resistant Proteus in the urine. Patient is 60-year-old woman with past medical history mentioned below including atrial fibrillation, congestive heart failure, COPD, diabetes mellitus type 2, fibromyalgia, hyperlipidemia and hypertension who resides at a senior living facility for rehabilitation presented to [facility] with shortness of breath that. Most of the information was taken from medical records since the patient is not a great historian. Apparently patient was recently admitted to [facility] for acute respiratory failure secondary to COPD exacerbation and pulmonary hypertension and phrenic nerve paralysis and congestive heart failure. Patient 1 discharge was stable doing okay but then a day or 2 prior to admission she started having shortness of breath and lower extremity edema that has been got getting worse. Patient seems to have gained about 25 pounds of water weight. Patient came to [facility] for evaluation. Since admission, patient has been afebrile, she was initially tachycardic and tachypneic but has been resolved. Presenting labs revealed a WBC of 9.9 thousand with 81.7% neutrophils no bands. Patient was. Daughter with a pH of 7.13 PCO2 of 131 and her BUN and creatinine were 39 and 1.55 respectively. A urinalysis was not obtained on June 06 which revealed large leukocyte esterase and WBCs are too numerous to count but also many epithelial cells and there was no indication to culture. Urine culture was done and it revealed Proteus mirabilis susceptible only to carb dependence, Zosyn and Bactrim. Blood cultures also obtained on are no growth to date. Initial checks x-ray revealed low lung volume with left-sided pleural effusion and associated airspace disease and cardiomegaly. Patient was initially intubated through June 09 and then later extubated. Patient was seen by pulmonary team and there was no concern for pneumonia. 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 Psychiatric history: anxiety, depression - Past Surgical History Surgical History: no surgical history Additional surgical history: Knee scope - Social History Smoking Status: Never smoker Smokeless Tobacco Status: No Alcohol use: none Drug use: none - Family History Father Family Member Ethnicity: Non- Living Status: Hx Family Cardiac Disorders: Yes (MS, HTN) Brother Family Member Ethnicity: Non- Living Status: Still Living Hx Family GI Disorders: Yes (Colon resection) Sister Family Member Ethnicity: Non- Living Status: Hx Family Cardiac Disorders: Yes (CAD, HTN) Hx Family Respiratory Disorders: Yes (COPD) Mother Adopted: No Family Member Ethnicity: Non- Living Status: Hx Family Cardiac Disorders: Yes (CHF) Hx Family Respiratory Disorders: Yes (COPD) Hx Family Cancer: Yes (skin) Hx Family GI Disorders: No Hx Family Endocrine Disorder: Yes (DM) Hx Family Neuromuscular Disorders: No Hx Family Neurologic Disorders: Yes (CVA with rt sided weakness) Hx Family HEENT Disorders: Yes ([place]) Hx Family Autoimmune Disorders: No Infectious Disease-CN:Meds Latanoprost [Xalatan] 1 drop BOTH EYES HS 04/06/16 [History] SitaGLIPtin [Januvia] 100 mg PO DAILY 04/06/16 [History] Albuterol Sulfate [Albuterol Inhaler] 2 puff IH Q4H PRN 04/14/17 [History] Citalopram Hydrobromide [Citalopram HBr] 40 mg PO HS 04/14/17 [History] Docusate [Colace] 100 mg PO DAILY 04/14/17 [History] Gabapentin [Neurontin] 600 mg PO HS 04/14/17 [History] Brimonidine 0.2% [Alphagan] 1 drop BOTH EYES BID 12/19/17 [History] Propylene Glycol/Peg 400 [Systane Ultra 0.4-0.3% Eye Drp] 1 drop OP QID [History] Ipratropium/Albuterol Neb [Duoneb] 3 ml IH [id number] PRN inhsol 01/18/18 [Rx] Iron Polysaccharide Complex [Ferrex 150] 150 mg PO DAILY capsule 01/18/18 [Rx] Ascorbic Acid [Vitamin C] 500 mg PO 0630 #30 tablet 01/25/18 [Rx] Isosorbide MONOnitrate (24 HR) [Imdur] 30 mg PO DAILY #30 tab.er.24h 01/25/18 [ Rx] Esomeprazole Magnesium [Nexium] 40 mg PO DAILY 03/29/18 [History] Ibandronate Sodium [Boniva] 150 mg PO QMONTH 03/29/18 [History] Insulin DETEMIR [Levemir Flextouch] 40 unit SQ HS #12 insuln.pen 05/03/18 [Rx] Diltiazem CD (24hr) [Cardizem CD] 180 mg PO DAILY #30 cap.er.24h 05/18/18 [Rx] Rivaroxaban [Xarelto] 20 mg PO 1700 06/06/18 [History] Simvastatin [Zocor] 40 mg PO HS 06/06/18 [History] 3 Allergy/AdvReac Type Severity Reaction Status Date / Time hydrocodone [From Vicodin] AdvReac Nausea Verified 05/13/18 10:46 Hydromorphone [From Dilaudid] AdvReac Nausea Verified 05/13/18 10:46 Review of systems: 10 point review of systems done, negative other for what Celis in the history of present illness. Exam - Constitutional Vitals: Temp Pulse Resp BP Pulse Ox 97.1 F L 82 17 118/58 98 06/13/18 11:21 06/13/18 11:21 06/13/18 11:21 06/13/18 11:21 06/13/18 11:21 General appearance: no acute distress, no febrile Exam: Sitting up in the chair - Head Head exam: Present: atraumatic, normocephalic - Eye Eye exam: Present: EOMI, PERRL - ENT Additional comments: Has O2 nasal cannula on. - Neck Neck exam: Present: full ROM. Absent: meningismus - Respiratory Additional comments: Chest expanding symmetrically. Breath sounds decreased universally. I did not appreciate any wheezing or rhonchi - Cardiovascular Cardiovascular exam: Present: RRR, +S1, +S2 - GI/Abdominal GI/Abdominal exam: Present: normal bowel sounds, soft. Absent: tenderness - Extremities Exam Additional comments: Bilateral lower extremity edema and venous stasis. - Neurological Exam Neurological exam: Present: alert, oriented X3 - Psychiatric Psychiatric exam: Present: flat affect, normal mood - Skin Skin exam: Present: normal color. Absent: rash Infectious Disease CN: Results - Labs CBC & Chem 7: 06/13/18 03:42 06/13/18 03:42 Consult Discharge Plan - Plan Referrals: Bessy Peng CASH ON DELIVERY CLERK [Advanced Practice Nurse] - 06/21/18 4:00 pm
[2018-06-13] MEDS: *HR* Rivaroxaban 10 MG TABLET PO SCH (17:31)
[2018-06-13] MEDS: Insulin DETEMIR 100 UNIT/ML X5UNITS SQ SCH ×2 (20:19→21:39)
[2018-06-13] MEDS: Gabapentin 300 MG CAPSULE PO SCH (20:20)
[2018-06-14] MEDS: Piperacillin/Tazobactam 3.375 GM in 0.9 % Sodium Chloride Mini Bag 100 ML IVPB SCH (03:26)
[2018-06-14] MEDS: Levalbuterol Neb 1.25 MG/3 ML IH SCH ×4 (03:50→22:31)
[2018-06-14 04:02] LABS: Basophils % 0.2 %
[2018-06-14 04:04] LABS: Hematocrit 30.1 % (35.3-44.9); Hemoglobin 8.6 g/dL (11.5-15.4); Immature Granulocytes % 0.7 % (0-4); Lymphocytes # 0.9 K/mcL (0.6-4.6); Lymphocytes % 14.8 %; Mean Corpuscular HGB Conc 28.6 g/dL (31.6-35.5); Mean Corpuscular Hemoglobin 29.5 pg (28.0-33.3); Mean Corpuscular Volume 103.1 fL (83.0-100.0); Mean Platelet Volume 11.8 fL (9.4-12.4); Monocytes # 0.7 K/mcL (0.0-1.3); Monocytes % 11.9 %; Neutrophils # 4.3 K/mcL (1.6-8.9); Platelet Count 147 K/mcL (140-400); Red Blood Count 2.92 M/mcL (3.82-4.97); Red Cell Distribution Width 15.2 % (11.5-14.5); Segmented Neutrophils % 72.4 %
[2018-06-14 04:34] LABS: BUN/Creatinine Ratio 26 (6-26); Blood Urea Nitrogen 22 mg/dL (8-23); Calcium 9.2 mg/dL (8.6-10.3); Carbon Dioxide 43 mEq/L (23-29); Chloride 100 mEq/L (98-107); Glucose 169 mg/dL (70-105); Magnesium 1.8 mg/dL (1.6-2.6); Osmolality,Calculated 305 (280-300); Potassium 3.3 mEq/L (3.5-5.1); Sodium 144 mEq/L (136-145); eGFR For Non-African Americans > 60 (> 60)
[2018-06-14 04:44] LABS: Hypochromasia Present (Not Present)
[2018-06-14 04:45] LABS: Macrocytosis Present (Not Present); Platelet Estimate Normal (Normal)
[2018-06-14] MEDS: Insulin LISPRO 300 UNITS/3 ML VIAL SQ SCH ×6 (07:52→16:54)
[2018-06-14] MEDS: Furosemide 40 MG/4 ML VIAL IVP SCH ×2 (08:42→17:19)
[2018-06-14] MEDS: Diltiazem CD (24hr) 180 MG CAPSULE PO SCH (08:42)
[2018-06-14] MEDS: Nystatin POWDER 30 GM BOTTLE TP SCH ×3 (08:43→20:28)
[2018-06-14] MEDS: Insulin DETEMIR 100 UNIT/ML X5UNITS SQ SCH ×2 (08:45→20:06)
[2018-06-14] MEDS ORDERED: Potassium Chloride Elixir 20 MEQ/15 ML UDC PO ONE (13:24)
--- NOTE | 2018-06-14 13:46 | Internal Med Progress Note ---
Hospitalist Progress Note - Encounter Date of Encounter: 06/14/18 Time of Encounter: 13:43 - Subjective Interval History: Patient seen and evaluated at bedside, patient reports feeling well, states that she is close to her baseline. Denies respiratory distress, shortness of breath. Denies chest pain, nausea, vomiting. No overnight event. - Exam Vitals: Temp Pulse Resp BP Pulse Ox 98.5 F 100 21 131/54 95 06/14/18 11:31 06/14/18 11:31 06/14/18 11:06/14/18 11:06/14/18 11:31 Exam: General: Patient is alert, oriented, no acute distress, speaks in full sentences Respiratory: Good respiratory effort. decrease breath sounds bilaterally, occasional crackles in the posterior lung desai, no wheezing, Cardiovascular: Irregular, s1 and s2 No, rubs, gallops, or murmors. Abdomen: Obese, Bowel sounds present normoactive x-4 quadrants. Abdomen is soft , No guarding or rebound. Musculoskeletal: Spontaneously moving all extremities. 3+ pitting edema in the lower extremities., no calf tenderness Neuro: Alert and oriented x4. Psych: Patient's affect is normal - Assessment and Plan (1) Chronic respiratory failure with hypoxia and hypercapnia Current Visit: Yes Status: Acute Assessment and Plan: Chronic respiratory failure on 3 L of oxygen by nasal cannula. Currently on BiPAP Plan: - Alternate oxygen by nasal cannula 2-3 L of O2, BiPAP every 4 hours - titrate for O2 sats obturation more than 92%. - We will repeat ABG (2) Diastolic CHF Current Visit: Yes Status: Chronic Assessment and Plan: This patient has edema 3+ in the lower extremity, crackles at the bases. No respiratory distress. Plan: - Increase Lasix to 40 mg twice a day IV - Continue strict intake and output - Restriction to 1.5 L a day - 2 g sodium diet (3) Diabetes Current Visit: Yes Status: Chronic Assessment and Plan: Blood sugar has been well controlled Plan: - Levemir 15 units twice a day, and lispro 5 units before meals - Continue lispro sliding scale medium dose. (4) AIMEE (obstructive sleep apnea) Current Visit: Yes Status: Chronic Assessment and Plan: Plan: - Nocturnal Bipap (5) Afib Current Visit: Yes Status: Chronic Assessment and Plan: Rate controlled. Plan: - Continue the diltiazem 180 mg by mouth daily for rate control - On Xarelto for full Dose anticoagulation due to high [id number] score (6) Renal failure (ARF), acute on chronic Current Visit: Yes Status: Resolved Assessment and Plan: Acute kidney injury, resolved. Likely due to decompensated CHF, which is improved (7) COPD (chronic obstructive pulmonary disease) Current Visit: No Status: Chronic Assessment and Plan: No wheezing on auscultation. Plan: - Continue Nebs PNR (8) Urinary tract infection Current Visit: No Status: Resolved Assessment and Plan: Asymptomatic. growing MDRO Proteus in the urine Plan: - Contact isolation - Discussed with ID, recommended no antibiotics coverage as patient with no symptoms (9) Hypokalemia Current Visit: Yes Status: Acute Assessment and Plan: Possibly due to diuretics. Plan: - Started on daily potassium replacement (10) Anemia Current Visit: No Status: Acute Assessment and Plan: H&H is stable. No signs of bleeding. Plan: - Continue monitoring (11) DVT prophylaxis Current Visit: Yes Status: Acute Assessment and Plan: High risk of DVT due to body habitus plus low mobility Plan: - On full dose anticoagulation due to A.Fib - Summary of Assessment and Plan Summary of Assessment and Plan: Patient clinically stable to be transferred to rehabilitation facility. Pending placement - Time Spent with Patient Total time spent is greater than 50% in coordination of care (as documented) at patient's floor/unit and/or counseling patient: Greater than 35 minutes Plan of Care Discussed with: patient Internal Medicine: Result - Labs CBC & Chem 7: 06/14/18 03:30 06/14/18 03:30 Labs: Short CBC 06/14/18 Range/Units 03:30 WBC 6.0 (4.3-11.1) K/mcL Hgb 8.6 L (11.5-15.4) g/dL Hct 30.1 L (35.3-44.9) % Plt Count 147 (140-400) K/mcL Neutrophils # 4.3 (1.6-8.9) K/mcL BMP 06/14/18 03:30 Sodium 144 Potassium 3.3 L Chloride 100 Carbon Dioxide 43 H* BUN 22 Creatinine 0.85 Glucose 169 H Calcium 9.2 - ABG Interpretation ABG results: ABG ABG pH 7.48 pH Units (7.32-7.45) H 06/08/18 04:48 ABG pCO2 50 mmHg (35-45) H 06/08/18 04:48 ABG pO2 72 mmHg (85-104) L 06/08/18 04:48 ABG O2 Saturation 95 % (95-98) 06/08/18 04:48 PT/INR, D-dimer PT 13.6 Seconds (9.4-12.1) H 06/06/18 17:26 Consult Discharge Plan - Plan Referrals: Bessy Peng IRON AND STEEL WORK SUPERVISOR [Advanced Practice Nurse] - 06/21/18 4:00 pm (2) Diastolic CHF Qualifiers: Heart failure chronicity: acute on chronic Qualified Code(s): I50.33 - Acute on chronic diastolic (congestive) heart failure (3) Diabetes Qualifiers: Diabetes mellitus type: type 2 Diabetes mellitus exterminator termite insulin use: without exterminator termite use Diabetes mellitus complication status: with kidney complications Diabetes mellitus complication detail: with chronic kidney disease Chronic kidney disease stage: stage 3 (moderate) Qualified Code(s): E11.22 - Type 2 diabetes mellitus with diabetic chronic kidney disease; N18.3 - Chronic kidney disease, stage 3 (moderate) (5) Afib Qualifiers: Atrial fibrillation type: chronic Qualified Code(s): I48.2 - Chronic atrial fibrillation (6) Renal failure (ARF), acute on chronic Qualifiers: Acute renal failure type: unspecified Chronic kidney disease stage: stage 3 ( moderate) Qualified Code(s): N17.9 - Acute kidney failure, unspecified; N18.3 - Chronic kidney disease, stage 3 (moderate) (7) COPD (chronic obstructive pulmonary disease) Qualifiers: COPD type: unspecified COPD Qualified Code(s): J44.9 - Chronic obstructive pulmonary disease, unspecified (8) Urinary tract infection Qualifiers: Urinary tract infection type: acute cystitis Hematuria presence: without hematuria Qualified Code(s): N30.00 - Acute cystitis without hematuria (10) Anemia Qualifiers: Anemia type: unspecified type Qualified Code(s): D64.9 - Anemia, unspecified
[2018-06-14] MEDS ORDERED: Potassium Chloride Elixir 20 MEQ/15 ML UDC PO SCH (14:00)
[2018-06-14 15:51] LABS: ABG Base Excess 11 mEq/L (-2 to 3); ABG HCO3 40 mEq/L (21-27); ABG Oxygen Saturation 98 % (95-98); ABG PCO2 80 mmHg (35-45); ABG PO2 118 mmHg (85-104); ABG TCO2 42 mEq/L (20-26)
[2018-06-14] MEDS: *HR* Rivaroxaban 10 MG TABLET PO SCH (17:19)
[2018-06-14] MEDS: Gabapentin 300 MG CAPSULE PO SCH (20:05)
[2018-06-15] MEDS: Levalbuterol Neb 1.25 MG/3 ML IH SCH ×3 (03:38→15:38)
[2018-06-15 04:46] LABS: Basophils % 0.2 %
[2018-06-15 04:47] LABS: Hematocrit 29.5 % (35.3-44.9); Hemoglobin 8.5 g/dL (11.5-15.4); Immature Granulocytes % 0.9 % (0-4); Lymphocytes # 1.2 K/mcL (0.6-4.6); Lymphocytes % 23.3 %; Mean Corpuscular HGB Conc 28.8 g/dL (31.6-35.5); Mean Corpuscular Hemoglobin 29.4 pg (28.0-33.3); Mean Corpuscular Volume 102.1 fL (83.0-100.0); Mean Platelet Volume 11.6 fL (9.4-12.4); Monocytes # 0.8 K/mcL (0.0-1.3); Monocytes % 14.4 %; Neutrophils # 3.2 K/mcL (1.6-8.9); Platelet Count 146 K/mcL (140-400); Red Blood Count 2.89 M/mcL (3.82-4.97); Red Cell Distribution Width 15.5 % (11.5-14.5); Segmented Neutrophils % 61.2 %
[2018-06-15 05:11] LABS: BUN/Creatinine Ratio 27 (6-26); Blood Urea Nitrogen 19 mg/dL (8-23); Calcium 9.3 mg/dL (8.6-10.3); Carbon Dioxide 41 mEq/L (23-29); Chloride 104 mEq/L (98-107); Glucose 90 mg/dL (70-105); Magnesium 1.8 mg/dL (1.6-2.6); Osmolality,Calculated 310 (280-300); Potassium 3.5 mEq/L (3.5-5.1); Sodium 149 mEq/L (136-145); eGFR For Non-African Americans > 60 (> 60)
[2018-06-15 05:34] LABS: Hypochromasia Present (Not Present); Platelet Estimate Normal (Normal)
[2018-06-15] MEDS: Diltiazem CD (24hr) 180 MG CAPSULE PO SCH (08:47)
[2018-06-15] MEDS: Furosemide 40 MG/4 ML VIAL IVP SCH (08:48)
[2018-06-15] MEDS: Insulin LISPRO 300 UNITS/3 ML VIAL SQ SCH ×4 (08:49→12:09)
[2018-06-15] MEDS: Insulin DETEMIR 100 UNIT/ML X5UNITS SQ SCH (08:49)
[2018-06-15] MEDS: Nystatin POWDER 30 GM BOTTLE TP SCH (08:49)
[2018-06-15] MEDS ORDERED: Insulin DETEMIR 100 UNIT/ML X5UNITS SQ SCH (10:20)
--- NOTE | 2018-06-15 10:38 | Internal Med Progress Note ---
Hospitalist Progress Note - Encounter Date of Encounter: 06/15/18 Time of Encounter: 10:37 - Subjective Interval History: Patient seen and evaluated at bedside, Admits feeling better today, denies chest pain, or shortness of breath. No change in mental status overnight. - Exam Vitals: Temp Pulse Resp BP Pulse Ox 98.8 F 90 20 127/55 93 06/15/18 07:04 06/15/18 07:04 06/15/18 07:04 06/15/18 07:04 06/15/18 07:04 Exam: General: Patient is alert, oriented, no acute distress, speaks in full sentences. On BiPAP Respiratory: Good respiratory effort. decrease breath sounds in the right lung , no wheezing, no crackles no rales. Cardiovascular: Irregular, s1 and s2 No, rubs, gallops, or murmors. Abdomen: Obese, Bowel sounds present normoactive x-4 quadrants. Abdomen is soft , No guarding or rebound. Musculoskeletal: Spontaneously moving all extremities. 3+ pitting edema in the lower extremities. Neuro: Alert and oriented x4. Psych: Patient's affect is claudio - Assessment and Plan (1) Chronic respiratory failure with hypoxia and hypercapnia Current Visit: Yes Status: Acute Assessment and Plan: Patient has been on the BiPAP continuously for the past 24 hours. Settings of 16/8. Last PCO2 of 80 H. no change in mental status. Plan: - Repeat ABG - Pulmonology reevaluation for possible changes in the BiPAP settings. - Titrate for O2 sat the patient more than 92%. (2) Diastolic CHF Current Visit: Yes Status: Chronic Assessment and Plan: No crackles or rales, heard but decreased breath sounds in the right lung. Plan: - Patient total negative balance 7.4 litter. still has 3 + edema in the lower extremities, but no crackles on auscultation - We will decrease Lasix dosage from 40 mg twice a day to 40 mg daily. Due to an increase in the PCO2. - Continue water restriction to 1.5 L a day (3) Diabetes Current Visit: Yes Status: Chronic Assessment and Plan: Blood sugar well controlled. Plan: - Decrease Levemir to 12 units twice a day - Continue lispro before meals and sliding scale - Diabetic diet. (4) AIMEE (obstructive sleep apnea) Current Visit: Yes Status: Chronic Assessment and Plan: Plan: - Has been on continuous Bipap for the past 24 (5) Afib Current Visit: Yes Status: Chronic Assessment and Plan: Plan: - Continue Cardizem for rate control - Anticoagulated with Xarelto due to high CHADS-VASc Score (6) COPD (chronic obstructive pulmonary disease) Current Visit: No Status: Chronic Assessment and Plan: Not on acute exacerbation. No wheezing bilaterally. Poor air entry in the right lung. Plan: - Port chest x-ray - Insentive spirometry - Continue Levalbuterol Nebs PRN Q4RT (7) Anemia Current Visit: No Status: Chronic Assessment and Plan: h&h Stable. No signs of bleeding Plan: - Will continue to monitor (8) DVT prophylaxis Current Visit: Yes Status: Acute Assessment and Plan: High risk of DVT due to body habitus plus low mobility Plan: - On full dose anticoagulation due to A.Fib - Summary of Assessment and Plan Summary of Assessment and Plan: continues to wait from Michelle Sibley on status of precert - Time Spent with Patient Total time spent is greater than 50% in coordination of care (as documented) at patient's floor/unit and/or counseling patient: Greater than 35 minutes Plan of Care Discussed with: patient Internal Medicine: Result - Labs CBC & Chem 7: 06/15/18 04:26 06/15/18 04:26 Labs: Short CBC 06/15/18 Range/Units 04:26 WBC 5.3 (4.3-11.1) K/mcL Hgb 8.5 L (11.5-15.4) g/dL Hct 29.5 L (35.3-44.9) % Plt Count 146 (140-400) K/mcL Neutrophils # 3.2 (1.6-8.9) K/mcL BMP 06/15/18 04:26 Sodium 149 H Potassium 3.5 Chloride 104 Carbon Dioxide 41 H* BUN 19 Creatinine 0.70 Glucose 90 Calcium 9.3 - ABG Interpretation ABG results: ABG ABG pH 7.30 pH Units (7.32-7.45) L 06/14/18 15:33 ABG pCO2 80 mmHg (35-45) H* 06/14/18 15:33 ABG pO2 118 mmHg (85-104) H 06/14/18 15:33 ABG O2 Saturation 98 % (95-98) 06/14/18 15:33 PT/INR, D-dimer PT 13.6 Seconds (9.4-12.1) H 06/06/18 17:26 Consult Discharge Plan - Plan Referrals: Bessy Peng SENIOR POWER PLANT OPERATOR [Advanced Practice Nurse] - 06/21/18 4:00 pm (2) Diastolic CHF Qualifiers: Heart failure chronicity: acute on chronic Qualified Code(s): I50.33 - Acute on chronic diastolic (congestive) heart failure (3) Diabetes Qualifiers: Diabetes mellitus type: type 2 Diabetes mellitus assisted insulin use: without assisted use Diabetes mellitus complication status: with kidney complications Diabetes mellitus complication detail: with chronic kidney disease Chronic kidney disease stage: stage 3 (moderate) Qualified Code(s): E11.22 - Type 2 diabetes mellitus with diabetic chronic kidney disease; N18.3 - Chronic kidney disease, stage 3 (moderate) (5) Afib Qualifiers: Atrial fibrillation type: chronic Qualified Code(s): I48.2 - Chronic atrial fibrillation (6) COPD (chronic obstructive pulmonary disease) Qualifiers: COPD type: unspecified COPD Qualified Code(s): J44.9 - Chronic obstructive pulmonary disease, unspecified (7) Anemia Qualifiers: Anemia type: unspecified type Qualified Code(s): D64.9 - Anemia, unspecified
[2018-06-15 10:40] LABS: ABG Base Excess 14 mEq/L (-2 to 3); ABG HCO3 41 mEq/L (21-27); ABG Oxygen Saturation 94 % (95-98); ABG PCO2 70 mmHg (35-45); ABG PH 7.38 pH Units (7.32-7.45); ABG PO2 74 mmHg (85-104); ABG TCO2 44 mEq/L (20-26)
--- NOTE | 2018-06-15 14:15 | Discharge Summary ---
- NOTES TO OUTPATIENT PROVIDER Notes to Outpatient Provider: ABG if lethargic. Orders not resulted at time of discharge: Pending orders 06/14/18 04:00 ABG Chemistry Profile AM 0400 06/15/18 13:42 Chest Xray, 1 view [XR chest 1V] [XR] Routine 06/16/18 04:00 Basic Metabolic Panel AM 0400 CBC [Complete Blood Count] [HEME] AM 0400 Magnesium AM 0400 Date of Encounter: 06/15/18 Time of Encounter: 14:10 - Discharge Diagnosis (1) Diastolic CHF Priority: Primary Status: Chronic Qualifiers: Heart failure chronicity: acute on chronic Qualified Code(s): I50.33 - Acute on chronic diastolic (congestive) heart failure (2) Chronic respiratory failure with hypoxia and hypercapnia Priority: Secondary Status: Acute (3) Diabetes Priority: Secondary Status: Chronic Qualifiers: Diabetes mellitus type: type 2 Diabetes mellitus mcfp insulin use: without mcfp use Diabetes mellitus complication status: with kidney complications Diabetes mellitus complication detail: with chronic kidney disease Chronic kidney disease stage: stage 3 (moderate) Qualified Code(s): E11.22 - Type 2 diabetes mellitus with diabetic chronic kidney disease; N18.3 - Chronic kidney disease, stage 3 (moderate) (4) AIMEE (obstructive sleep apnea) Priority: Secondary Status: Chronic (5) Afib Priority: Secondary Status: Chronic Qualifiers: Atrial fibrillation type: chronic Qualified Code(s): I48.2 - Chronic atrial fibrillation (6) COPD (chronic obstructive pulmonary disease) Priority: Secondary Status: Chronic Qualifiers: COPD type: unspecified COPD Qualified Code(s): J44.9 - Chronic obstructive pulmonary disease, unspecified (7) Anemia Priority: Secondary Status: Chronic Qualifiers: Anemia type: unspecified type Qualified Code(s): D64.9 - Anemia, unspecified (8) DVT prophylaxis Priority: Secondary Status: Acute Hospital course: Ms. Cox is a 62 year old female past medical history of A. fib, CHF, COPD, diabetes, fibromyalgia, hyperlipidemia, and hypertension. Patient presented to the hospital from a rehabilitation facility complaining of shortness of breath and change in mentation. Patient admitted to the critical care unit due to acute on chronic hypoxemic hypercapnic respiratory failure intubated. Patient also treated with IV antibiotics for a couple of days. Diurese first with a Lasix drip, they switch to Lasix 40 mg IV daily which she has been responding appropriately. Patient acute condition resolves. And on the second day of the hospitalization patient was extubated and the stepdown intermediate care unit. Discussed findings of an ABG due to elevated PCO2 of 70, with a dispatcher ship pilot involved in the case. He recommended that the patient can be discharged, as long as the patient has no change in mental status. continue BiPAP settings of 16/8 and alternate to nasal cannula. Patient is clinically stable to be discharged.. - Time Spent with Patient Total time spent providing and/or coordinating discharge services: Greater than 30 minutes - Discharge Medications Prescriptions: Furosemide [Lasix] 40 mg PO DAILY 30 Days #30 tablet Home Medications: Latanoprost [Xalatan] 1 drop BOTH EYES HS 04/06/16 [History] SitaGLIPtin [Januvia] 100 mg PO DAILY 04/06/16 [History] Albuterol Sulfate [Albuterol Inhaler] 2 puff IH Q4H PRN 04/14/17 [History] Citalopram Hydrobromide [Citalopram HBr] 40 mg PO HS 04/14/17 [History] Docusate [Colace] 100 mg PO DAILY 04/14/17 [History] Gabapentin [Neurontin] 600 mg PO HS 04/14/17 [History] Brimonidine 0.2% [Alphagan] 1 drop BOTH EYES BID 12/19/17 [History] Propylene Glycol/Peg 400 [Systane Ultra 0.4-0.3% Eye Drp] 1 drop OP QID [History] Ipratropium/Albuterol Neb [Duoneb] 3 ml IH [id number] PRN inhsol 01/18/18 [Rx] Iron Polysaccharide Complex [Ferrex 150] 150 mg PO DAILY capsule 01/18/18 [Rx] Ascorbic Acid [Vitamin C] 500 mg PO 0630 #30 tablet 01/25/18 [Rx] Isosorbide MONOnitrate (24 HR) [Imdur] 30 mg PO DAILY #30 tab.er.24h 01/25/18 [ Rx] Esomeprazole Magnesium [Nexium] 40 mg PO DAILY 03/29/18 [History] Ibandronate Sodium [Boniva] 150 mg PO QMONTH 03/29/18 [History] Insulin DETEMIR [Levemir Flextouch] 40 unit SQ HS #12 insuln.pen 05/03/18 [Rx] Diltiazem CD (24hr) [Cardizem CD] 180 mg PO DAILY #30 cap.er.24h 05/18/18 [Rx] Rivaroxaban [Xarelto] 20 mg PO 1700 06/06/18 [History] Simvastatin [Zocor] 40 mg PO HS 06/06/18 [History] Furosemide [Lasix] 40 mg PO DAILY 30 Days #30 tablet 06/15/18 [Rx] Allergies/Adverse Reactions: 3 Allergy/AdvReac Type Severity Reaction Status Date / Time hydrocodone [From Vicodin] AdvReac Nausea Verified 05/13/18 10:46 Hydromorphone [From Dilaudid] AdvReac Nausea Verified 05/13/18 10:46 Date of admission: 06/06/18 19:55 Primary care physician: Aayush Chase MD Consults: 06/07/18 06:08 Consult to Pulmonology [CONS] Routine Consulting Provider: [facility] [place] Reason for Consult: ventilator Time Notified: 06:09 Call Completed: Yes 06/10/18 12:59 Consult to Occupational Therapy [CONS] Routine Comment: Evaluate, develop and implement POC Reason for Consult: deconditioning; was intubated; may need ecf Does patient have active BEDREST order?: No Is patient medically & hemodynamically stable?: Yes 06/13/18 08:33 PT [Consult to Physical Therapy] [CONS] Routine Comment: Evaluate, develop and implement POC Reason for Consult: Extubated pt that needs increased movement and additional time sitting rather than supine. Does patient have active BEDREST order?: No Is patient medically & hemodynamically stable?: Yes Patient assessed for mobility or mobilized this visit?: No - Constitutional Vitals: Temp Pulse Resp BP Pulse Ox 98.7 F 90 20 122/84 97 06/15/18 11:32 06/15/18 11:32 06/15/18 11:32 06/15/18 11:32 06/15/18 11:32 Exam: General: Patient is alert, oriented, no acute distress, speaks in full sentences. On BiPAP Respiratory: Good respiratory effort. decrease breath sounds in the right lung , no wheezing, no crackles no rales. Cardiovascular: Irregular, s1 and s2 No, rubs, gallops, or murmors. Abdomen: Obese, Bowel sounds present normoactive x-4 quadrants. Abdomen is soft , No guarding or rebound. Musculoskeletal: Spontaneously moving all extremities. 3+ pitting edema in the lower extremities. Neuro: Alert and oriented x4. Psych: Patient's affect is claudio - Patient Status Disposition: Transfer SNF Condition: Good Overall status at discharge: patient is progressing back to baseline - Discharge Instructions Follow Up With: Bessy Peng MANAGER GIFT [Advanced Practice Nurse] - 06/21/18 4:00 pm - Diet and Activity Activity: as per physical therapy Diet: diabetic diet
--- NOTE | 2018-06-15 14:23 | Physician Discharge Referral ---
ExtendedCare Referral Info Transfer To: SNF - Diagnosis (1) Diastolic CHF Priority: Primary Status: Chronic (2) Chronic respiratory failure with hypoxia and hypercapnia Priority: Secondary Status: Chronic (3) Diabetes Priority: Secondary Status: Chronic (4) AIMEE (obstructive sleep apnea) Priority: Secondary Status: Chronic (5) Afib Priority: Secondary Status: Chronic (6) COPD (chronic obstructive pulmonary disease) Priority: Secondary Status: Chronic (7) Anemia Priority: Secondary Status: Chronic (8) DVT prophylaxis Priority: Secondary Status: Acute - Transfer Medications Prescriptions: Furosemide [Lasix] 40 mg PO DAILY 30 Days #30 tablet Home Medications: Latanoprost [Xalatan] 1 drop BOTH EYES HS 04/06/16 [History] SitaGLIPtin [Januvia] 100 mg PO DAILY 04/06/16 [History] Albuterol Sulfate [Albuterol Inhaler] 2 puff IH Q4H PRN 04/14/17 [History] Citalopram Hydrobromide [Citalopram HBr] 40 mg PO HS 04/14/17 [History] Docusate [Colace] 100 mg PO DAILY 04/14/17 [History] Gabapentin [Neurontin] 600 mg PO HS 04/14/17 [History] Brimonidine 0.2% [Alphagan] 1 drop BOTH EYES BID 12/19/17 [History] Propylene Glycol/Peg 400 [Systane Ultra 0.4-0.3% Eye Drp] 1 drop OP QID [History] Ipratropium/Albuterol Neb [Duoneb] 3 ml IH [id number] PRN inhsol 01/18/18 [Rx] Iron Polysaccharide Complex [Ferrex 150] 150 mg PO DAILY capsule 01/18/18 [Rx] Ascorbic Acid [Vitamin C] 500 mg PO 0630 #30 tablet 01/25/18 [Rx] Isosorbide MONOnitrate (24 HR) [Imdur] 30 mg PO DAILY #30 tab.er.24h 01/25/18 [ Rx] Esomeprazole Magnesium [Nexium] 40 mg PO DAILY 03/29/18 [History] Ibandronate Sodium [Boniva] 150 mg PO QMONTH 03/29/18 [History] Insulin DETEMIR [Levemir Flextouch] 40 unit SQ HS #12 insuln.pen 05/03/18 [Rx] Diltiazem CD (24hr) [Cardizem CD] 180 mg PO DAILY #30 cap.er.24h 05/18/18 [Rx] Rivaroxaban [Xarelto] 20 mg PO 1700 06/06/18 [History] Simvastatin [Zocor] 40 mg PO HS 06/06/18 [History] Furosemide [Lasix] 40 mg PO DAILY 30 Days #30 tablet 06/15/18 [Rx] Allergies/Adverse Reactions: 3 Allergy/AdvReac Type Severity Reaction Status Date / Time hydrocodone [From Vicodin] AdvReac Nausea Verified 05/13/18 10:46 Hydromorphone [From Dilaudid] AdvReac Nausea Verified 05/13/18 10:46 - Respiratory Orders Smoking Cessation: Smoking cessation has been advised. For more information, call the [place] Tobacco Quit Line at 2-430-FDDONOW. CERTIFICATION: I certify that the transfer of the above named patient to an Extended Care Facility is necessary for the continuing treatment of the diagnosis listed. The above information is true and accurate reflection of patient's current condition. Confidential - Redisclosure prohibited without a patient's written consent.
[2018-06-15 16:28] VITALS: BP 139/55
[2018-06-15] MEDS ORDERED: Latanoprost 2.5 ML BOTTLE BOTH EYES SCH (21:00)
[2018-06-16] MEDS ORDERED: Furosemide 40 MG/4 ML VIAL IVP SCH (09:00)
== END 2018-06-15 16:47 | DRG 208 ==
LOC: EMEROOARM 17:06 → ICNU 19:55 → SUATTDRO 19:55 → ICNU 20:40 → 2NNU 06-09 14:45
PROVIDERS: ADMIT Family Medicine; ATTEND Internal Medicine

== ENCOUNTER 2018-07-12 13:09 | Inpatient (IN) ==
[2018-07-12] MEDS ORDERED: Naloxone 0.4 MG/ML INJ IVP PRN (15:38)
[2018-07-12] MEDS ORDERED: Dextrose Gel 15 GM/37.5 ML TUBE PO PRN ×2 (15:50)
[2018-07-12] MEDS ORDERED: *HR* Dextrose 50 % in Water (Syg) 50 ML SYRINGE IVP PRN (15:50)
[2018-07-12] MEDS ORDERED: D5% in Water 1,000 ML IVC PRN (15:50)
[2018-07-12] MEDS: Ipratropium/Albuterol Neb 3 ML IH SCH ×3 (16:24→23:27)
[2018-07-12 16:27] LABS: ABG Base Excess 18 mEq/L (-2 to 3); ABG HCO3 47 mEq/L (21-27); ABG Oxygen Saturation 96 % (95-98); ABG PCO2 86 mmHg (35-45); ABG PH 7.35 pH Units (7.32-7.45); ABG PO2 94 mmHg (85-104); ABG TCO2 50 mEq/L (20-26); Blood Gas PEEP 8 cm H2O
[2018-07-12 16:38] LABS: Troponin I 0.09 ng/mL (< 0.04)
[2018-07-12] MEDS ORDERED: Furosemide 20 MG/2 ML VIAL IVP SCH (17:00)
--- NOTE | 2018-07-12 17:00 | Internal Med History&Physical ---
Date of Encounter: 07/12/18 Time of Encounter: 16:56 Internal Medicine - H&P: HPI Chief complaint: worsening respiratory status. Admitted From: Intrahospital Transfer Plans for Post Hospital Care: Transfer [facility] Care History of present illness: Ms. Cox is a 63 year old female past medical history for chronic hypoxemic and hypercapnic respiratory failure, A. fib, COPD, obstructive sleep apnea, heart failure with preserved ejection fraction, and diabetes. Patient was transferred from [facility] due to worsening in her respiratory status. As per transfer note, patient has been developing over the past couple of days worsening of her CHF with not response to medication adjustments. Her breathing has been deteriorating and today she was transferred to [facility] to [facility] on level of care. In the ED patient was found to be volumen overload, on acute on chronic hypercapnic respiratory failure for which the medicine team was called for admission. Note: information optain from transfer note. Unable to obtain any information from the patient due to her mental status. Also called a family member and could not provide any information. 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 Psychiatric history: anxiety, depression - Past Surgical History Surgical History: no surgical history Additional surgical history: Knee scope - Social History Smoking Status: Never smoker Smokeless Tobacco Status: No Alcohol use: none Drug use: none - Family History Father Family Member Ethnicity: Non- Living Status: Hx Family Cardiac Disorders: Yes ([place], HTN) Brother Family Member Ethnicity: Non- Living Status: Still Living Hx Family GI Disorders: Yes (Colon resection) Sister Family Member Ethnicity: Non- Living Status: Hx Family Cardiac Disorders: Yes (CAD, HTN) Hx Family Respiratory Disorders: Yes (COPD) Mother Adopted: No Family Member Ethnicity: Non- Living Status: Hx Family Cardiac Disorders: Yes (CHF) Hx Family Respiratory Disorders: Yes (COPD) Hx Family Cancer: Yes (skin) Hx Family GI Disorders: No Hx Family Endocrine Disorder: Yes (DM) Hx Family Neuromuscular Disorders: No Hx Family Neurologic Disorders: Yes (CVA with rt sided weakness) Hx Family HEENT Disorders: Yes ([place]) Hx Family Autoimmune Disorders: No Internal Medicine - H&P: Meds Latanoprost [Xalatan] 1 drop BOTH EYES HS 04/06/16 [History] SitaGLIPtin [Januvia] 100 mg PO DAILY 04/06/16 [History] Albuterol Sulfate [Albuterol Inhaler] 2 puff IH Q4H PRN 04/14/17 [History] Citalopram Hydrobromide [Citalopram HBr] 40 mg PO HS 04/14/17 [History] Docusate [Colace] 100 mg PO DAILY 04/14/17 [History] Gabapentin [Neurontin] 600 mg PO HS 04/14/17 [History] Brimonidine 0.2% [Alphagan] 1 drop BOTH EYES BID 12/19/17 [History] Propylene Glycol/Peg 400 [Systane Ultra 0.4-0.3% Eye Drp] 1 drop OP QID [History] Ipratropium/Albuterol Neb [Duoneb] 3 ml IH [id number] PRN inhsol 01/18/18 [Rx] Iron Polysaccharide Complex [Ferrex 150] 150 mg PO DAILY capsule 01/18/18 [Rx] Ascorbic Acid [Vitamin C] 500 mg PO 0630 #30 tablet 01/25/18 [Rx] Isosorbide MONOnitrate (24 HR) [Imdur] 30 mg PO DAILY #30 tab.er.24h 01/25/18 [ Rx] Esomeprazole Magnesium [Nexium] 40 mg PO DAILY 03/29/18 [History] Ibandronate Sodium [Boniva] 150 mg PO QMONTH 03/29/18 [History] Insulin DETEMIR [Levemir Flextouch] 40 unit SQ HS #12 insuln.pen 05/03/18 [Rx] Diltiazem CD (24hr) [Cardizem CD] 180 mg PO DAILY #30 cap.er.24h 05/18/18 [Rx] Rivaroxaban [Xarelto] 20 mg PO 1700 06/06/18 [History] Simvastatin [Zocor] 40 mg PO HS 06/06/18 [History] Furosemide [Lasix] 40 mg PO DAILY 30 Days #30 tablet 06/15/18 [Rx] 3 Allergy/AdvReac Type Severity Reaction Status Date / Time hydrocodone [From Vicodin] AdvReac Nausea Verified 05/13/18 10:46 Hydromorphone [From Dilaudid] AdvReac Nausea Verified 05/13/18 10:46 ROS unobtainable: due to mental status All Systems PM: A 10-system review of systems was performed and is negative for pertinent findings except as documented above in the HPI. - Constitutional Vitals: Temp Pulse Resp BP Pulse Ox 98.2 F 71 29 130/62 98 07/12/18 15:56 07/12/18 15:56 07/12/18 16:24 07/12/18 15:56 07/12/18 16:24 Exam: General: Lethargic, but arousable to verbal stimuli. Cardiovascular: Irregularly, irregular, Normal S1 & S2, no rubs, murmurs or gallops. JVD unable to be access to due short neck. Lungs: decreased breath sounds in the right lower lung, crackles at the left base, no wheezing. Abdomen: Obese, Soft, non-tender, no rigidity. Extremities: Anasarca Neurological: unable to perform neuro eval due to patient's mental status. Rest of the physical exam is non contributory Internal Med - H&P Results - Labs Labs: Cardiac Enzymes 07/12/18 Range/Units 15:58 Troponin I 0.09 H* (< 0.04) ng/mL - ABG Interpretation ABG results: 07/12/18 16:24 ABG pH 7.35 ABG pCO2 86 H* ABG pO2 94 ABG HCO3 47 H ABG Total CO2 50 H ABG O2 Saturation 96 ABG Base Excess 18 H - Assessment and plan (1) Acute and chronic respiratory failure Current Visit: No Status: Acute Assessment and plan: Patient with a Hx of Resp failure. Possible contributing factor in decompensation is decompensated CHF Plan Pulm has been consulted Patient on BiPap 16/8 35% Will repeat ABG in about 2 hours Duo-Nebs Q4RT scheduled Titrate for O2Sat >92% Qualifiers: Respiratory failure complication: hypoxia and hypercapnia Qualified Code(s) : J96.21 - Acute and chronic respiratory failure with hypoxia; J96.22 - Acute and chronic respiratory failure with hypercapnia (2) CHF exacerbation Current Visit: No Status: Acute Assessment and plan: Plan: Started on gentle IV diruresis with furosemide 40mg/IV BID started on metolazone 5mg/PO to be given 30 minutes before furosemide. strict intake and output water restriction to 1.5 litters a day. daily weight NPO until beside swallow eval is done. No ACEs due to MARIFER Continue low dose beta-marguerite Qualifiers: Heart failure type: diastolic Qualified Code(s): I50.33 - Acute on chronic diastolic (congestive) heart failure (3) Pleural effusion Current Visit: Yes Status: Acute Assessment and plan: Possible due to Decompensated CHF. Cannot r/o infection in the setting of elevated WBC. Will manage if diuresis. Patient started on antibiotics empirically. (4) MARIFER (acute kidney injury) Current Visit: No Status: Acute Assessment and plan: Possible secondary to Decompensated Diastolic CHF. Will start patient on gentle IV diuresis. urine electrolytes. If not improvement will consider nephrology consult. (5) Elevated troponin Current Visit: No Status: Acute Assessment and plan: Possible due to demand in the setting of decompensated CHF. Serial trops, if trops continue to raise will consult cardiology. Telemetry monitoring. 12 lead EKG. (6) Afib Current Visit: No Status: Chronic Assessment and plan: Patient on Cardizem, toprol and Xarelto. Will hold cardizem for now. continue metoprolol and Xarelto. Qualifiers: Atrial fibrillation type: chronic Qualified Code(s): I48.2 - Chronic atrial fibrillation (7) COPD (chronic obstructive pulmonary disease) Current Visit: No Status: Chronic Assessment and plan: Plan of care as per #1 problem. 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 No active signs of infection. Plan UA Blood and urine culture Sputum culture and gram stain CT of chest for better evaluation of lung parenchyma Will start patient empiricaly on broad spectrum antibiotics Qualifiers: Leukocytosis type: unspecified Qualified Code(s): D72.829 - Elevated white blood cell count, unspecified (10) Altered mental status Current Visit: Yes Status: Acute Assessment and plan: Possible secondary to Hypercapnic respiratory failure. Consider Head CT to r/o any intra cranial process as patient is anticoagulated due to A.fib. Qualifiers: Altered mental status type: somnolence Qualified Code(s): R40.0 - Somnolence (11) Morbid obesity with BMI of 50.0-59.9, adult Current Visit: No Status: Acute (12) DVT prophylaxis Current Visit: Yes Status: Acute Assessment and plan: Patient is on Xarelto. - Time Spent With Patient Total time spent is greater than 50% in coordination of care (as documented) at patient's floor/unit and/or counseling patient: Greater than 35 minutes
--- NOTE | 2018-07-12 17:36 | Pulmonology Consult Note ---
Date of Encounter: 07/12/18 Time of Encounter: 16:30 Assessment and Plan (1) Acute on chronic respiratory failure with hypoxia and hypercapnia Current Visit: No Status: Acute Patient is coming with acute on chronic hypoxic and hypercapnic respiratory failure complicated by acute on chronic diastolic heart failure, worsening pleural effusion acute on chronic kidney disease not responding to regular dose of diuresis with worsening hypercarbia since ventilatory sufficiency due to fluid overload and pleural effusion and the picture is complicated by right sided phrenic nerve palsy . patient was transferred from [facility] to [facility] since she was getting more lethargic and she was not participating in rehabilitation. Patient is stable on BiPAP will reduce FiO2 to 30% but to keep the pressure support at the same level. For now patient should be nothing by mouth overnight. Patient will need aggressive diuresis because of the chronic kidney disease last time she responded to some Lasix drip. If she is started on Lasix drip patient she is on the electrolyte protocol. (2) Acute on chronic diastolic (congestive) heart failure Current Visit: Yes Status: Acute Patient coming with bilateral pedal edema pleural effusion with pulmonary edema and the chest x-ray imaging with high BNP and which is around [address] above her baseline. Patient will need more than usual dose of IV Lasix last time she responded to Lasix drip might consider to intermittent IV Lasix does not work. To trend troponins to make sure there is no NSTEMI. (3) COPD (chronic obstructive pulmonary disease) Current Visit: No Status: Chronic Patient current presentation is not due to COPD exacerbation we will continue bronchodilators. Qualifiers: COPD type: unspecified COPD Qualified Code(s): J44.9 - Chronic obstructive pulmonary disease, unspecified (4) Pleural effusion Current Visit: Yes Status: Acute Left sided pleural effusion did US showed moderate pocket of pleural effusion not a safe pocket to do a Thoracentesis the collapsed lung with breathing comes in the way will attempt diuresis first . (5) AIMEE (obstructive sleep apnea) Current Visit: No Status: Chronic To continue with BIPAP of 27/05 . (6) Phrenic nerve palsy Current Visit: No Status: Chronic Contributing to his chronic respiratory failure . (7) Altered mental status Current Visit: Yes Status: Acute most likely due to worsening hypercarbia Qualifiers: Altered mental status type: somnolence Qualified Code(s): R40.0 - Somnolence (8) Acute kidney injury superimposed on chronic kidney disease Current Visit: Yes Status: Acute Patient has worsening GFR can be due to cardiorenal syndrome . If she is not responding to intermittent IV diuresis patient might need lasix drip . History of Present Illness Consult date: 07/12/18 Requesting physician: Ish Graham Reason for consult: dyspnea, COPD, pulmonary hypertension, obstructive sleep apnea Chief complaint: Altered mental status with shortness of breadth History of present illness: 63-year-old female with past medical history of morbid obesity COPD acute on chronic diastolic heart failure with elevated BNP, right-sided phrenic nerve Palsy with elevated right hemidiaphragm with a hiatal hernia personally with altered mental status and worsening shortness of breath was transferred from inpatient [facility] to [facility]. Patient started to give proper history because of her lethargy but does not have any active chest pain or chest tightness was mainly shortness of breath she says she is better with BiPAP. During the inpatient [place] stay she cannot participate in rehabilitation become progressive shortness of breath with altered mental status. Chest x-ray is consistent with pulmonary edema. With a left-sided pleural effusion. No history of fever or chills. Patient was having acute on chronic hypoxic hypercapnic respiratory failure with altered mental status as pulmonary was consulted for evaluation for the reason of worsening of her respiratory status. 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 Psychiatric history: anxiety, depression - Past Surgical History Surgical History: no surgical history Additional surgical history: Knee scope - Social History Smoking Status: Never smoker Smokeless Tobacco Status: No Alcohol use: none Drug use: none - Family History Father Family Member Ethnicity: Non- Living Status: Hx Family Cardiac Disorders: Yes (OR, HTN) Brother Family Member Ethnicity: Non- Living Status: Still Living Hx Family GI Disorders: Yes (Colon resection) Sister Family Member Ethnicity: Non- Living Status: Hx Family Cardiac Disorders: Yes (CAD, HTN) Hx Family Respiratory Disorders: Yes (COPD) Mother Adopted: No Family Member Ethnicity: Non- Living Status: Hx Family Cardiac Disorders: Yes (CHF) Hx Family Respiratory Disorders: Yes (COPD) Hx Family Cancer: Yes (skin) Hx Family GI Disorders: No Hx Family Endocrine Disorder: Yes (DM) Hx Family Neuromuscular Disorders: No Hx Family Neurologic Disorders: Yes (CVA with rt sided weakness) Hx Family HEENT Disorders: Yes ([place]) Hx Family Autoimmune Disorders: No Medications and Allergies Latanoprost [Xalatan] 1 drop BOTH EYES HS 04/06/16 [History] SitaGLIPtin [Januvia] 100 mg PO DAILY 04/06/16 [History] Albuterol Sulfate [Albuterol Inhaler] 2 puff IH Q4H PRN 04/14/17 [History] Citalopram Hydrobromide [Citalopram HBr] 40 mg PO HS 04/14/17 [History] Docusate [Colace] 100 mg PO DAILY 04/14/17 [History] Gabapentin [Neurontin] 600 mg PO HS 04/14/17 [History] Brimonidine 0.2% [Alphagan] 1 drop BOTH EYES BID 12/19/17 [History] Propylene Glycol/Peg 400 [Systane Ultra 0.4-0.3% Eye Drp] 1 drop OP QID [History] Ipratropium/Albuterol Neb [Duoneb] 3 ml IH D2VEDTH PRN inhsol 01/18/18 [Rx] Iron Polysaccharide Complex [Ferrex 150] 150 mg PO DAILY capsule 01/18/18 [Rx] Ascorbic Acid [Vitamin C] 500 mg PO 0630 #30 tablet 01/25/18 [Rx] Isosorbide MONOnitrate (24 HR) [Imdur] 30 mg PO DAILY #30 tab.er.24h 01/25/18 [ Rx] Esomeprazole Magnesium [Nexium] 40 mg PO DAILY 03/29/18 [History] Ibandronate Sodium [Boniva] 150 mg PO QMONTH 03/29/18 [History] Insulin DETEMIR [Levemir Flextouch] 40 unit SQ HS #12 insuln.pen 05/03/18 [Rx] Diltiazem CD (24hr) [Cardizem CD] 180 mg PO DAILY #30 cap.er.24h 05/18/18 [Rx] Rivaroxaban [Xarelto] 20 mg PO 1700 06/06/18 [History] Simvastatin [Zocor] 40 mg PO HS 06/06/18 [History] Furosemide [Lasix] 40 mg PO DAILY 30 Days #30 tablet 06/15/18 [Rx] 3 Allergy/AdvReac Type Severity Reaction Status Date / Time hydrocodone [From Vicodin] AdvReac Nausea Verified 05/13/18 10:46 Hydromorphone [From Dilaudid] AdvReac Nausea Verified 05/13/18 10:46 ROS unobtainable: due to mental status All Systems: The remainder of the systems were reviewed and are negative Physical Examination Vital Signs: Vital Signs, Last 4 Hours Temp Pulse Resp BP Pulse Ox 07/12/18 16:24 29 98 07/12/18 15:56 98.2 F 71 18 130/62 95 07/12/18 15:00 21 94 General appearance: lethargic Effort: mildly labored Auscultation: bilateral: diminished breath sounds Gastrointestinal: other (obese distended abdomen ) Extremities: edema other (patient is lethargic there is no obvious neurological deficit ) Results - Laboratory Findings ABG ABG pH 7.35 pH Units (7.32-7.45) 07/12/18 16:24 ABG pCO2 86 mmHg (35-45) H* 07/12/18 16:24 ABG pO2 94 mmHg (85-104) 07/12/18 16:24 ABG O2 Saturation 96 % (95-98) 07/12/18 16:24 Abnormal lab findings: Abnormal lab results ABG pCO2 86 mmHg (35-45) H* 07/12/18 16:24 ABG HCO3 47 mEq/L (21-27) H 07/12/18 16:24 ABG Total CO2 50 mEq/L (20-26) H 07/12/18 16:24 ABG Base Excess 18 mEq/L (-2 to 3) H 07/12/18 16:24 Troponin I 0.09 ng/mL (< 0.04) H* 07/12/18 15:58 B-Natriuretic Peptide 1406 pg/mL (Less than 100) H 07/12/18 15:58 - Microbiology Findings Microbiology Findings: Microbiology, Last 48 Hours 07/12/18 15:58 Blood Culture - Preliminary Peripheral Venipuncture Culture is incubating and being continuously monitored for growth. Final report to follow. 07/12/18 15:58 Blood Culture - Preliminary Peripheral Venipuncture Culture is incubating and being continuously monitored for growth. Final report to follow. - Clinical Findings Intake & Output: Intake & Output 07/12/18 07/12/18 07/12/18 07:59 15:59 23:59 Weight 124 kg Consult Discharge Plan - Plan Referrals: NONE,PCP [Non-Partnered Physician] -
[2018-07-12 18:19] LABS: Digoxin 3.8 ng/mL (0.8-2.0)
[2018-07-12] MEDS: Piperacillin/Tazobactam 3.375 GM in 0.9 % Sodium Chloride Mini Bag 100 ML IVPB SCH (18:31)
[2018-07-12] MEDS: Insulin LISPRO 300 UNITS/3 ML VIAL SQ SCH (18:32)
[2018-07-12] MEDS: *HR* Rivaroxaban 10 MG TABLET PO SCH (19:21)
[2018-07-12] MEDS: Metoprolol XL (24 HR) Succ 25 MG TAB.ER.24H PO SCH (19:21)
[2018-07-12] MEDS: Insulin DETEMIR 100 UNIT/ML X5UNITS SQ SCH (20:58)
[2018-07-13] MEDS: Piperacillin/Tazobactam 3.375 GM in 0.9 % Sodium Chloride Mini Bag 100 ML IVPB SCH ×3 (01:07→16:11)
[2018-07-13] MEDS: Ipratropium/Albuterol Neb 3 ML IH SCH ×5 (03:28→20:10)
[2018-07-13 08:18] LABS: ABG Base Excess 19 mEq/L (-2 to 3); ABG HCO3 49 mEq/L (21-27); ABG Oxygen Saturation 98 % (95-98); ABG PCO2 92 mmHg (35-45); ABG PH 7.33 pH Units (7.32-7.45); ABG PO2 129 mmHg (85-104); ABG TCO2 51 mEq/L (20-26)
[2018-07-13] MEDS: Insulin LISPRO 300 UNITS/3 ML VIAL SQ SCH ×3 (08:24→17:29)
[2018-07-13] MEDS: Furosemide 20 MG/2 ML VIAL IVP SCH ×2 (08:31→16:11)
[2018-07-13] MEDS: Metoprolol XL (24 HR) Succ 25 MG TAB.ER.24H PO SCH (08:31)
[2018-07-13] MEDS: metOLazone 5 MG TABLET PO SCH (08:38)
--- NOTE | 2018-07-13 08:48 | Pulmonology Progress Note ---
Date of Encounter: 07/13/18 Time of Encounter: 08:30 Assessment and Plan (1) Acute on chronic respiratory failure with hypoxia and hypercapnia Current Visit: No Status: Acute Patient need to continue BiPAP when she is sleeping during the day and during the night I will give FULL LIQUID DIET instead OF Regular DIABETIC DIET. Since patient is using quite higher pressure or BiPAP high chance of aspiration and also high chance of respiratory decline so we will keep her on full liquid diet . To continue the current settings of BiPAP hopefully she will do well with continued diuresis. (2) Acute on chronic diastolic (congestive) heart failure Current Visit: Yes Status: Acute Patient responding well to diuresis hemodynamically stable follow electrolytes and serum creatinine. (3) COPD (chronic obstructive pulmonary disease) Current Visit: No Status: Chronic To continue with scheduled bronchodilators. Qualifiers: COPD type: unspecified COPD Qualified Code(s): J44.9 - Chronic obstructive pulmonary disease, unspecified (4) Pleural effusion Current Visit: Yes Status: Acute Small left-sided pleural effusion not enough Pocket to drain. (5) AIMEE (obstructive sleep apnea) Current Visit: No Status: Chronic Continue BiPAP during the day and the night. To give breaks for diet. (6) Phrenic nerve palsy Current Visit: No Status: Chronic Chronic right-sided phrenic nerve palsy. (7) Altered mental status Current Visit: Yes Status: Acute Patient is more alert today engaging in conversation she is off BiPAP now but will need BiPAP soon i spoke with the nurse regarding the plan of care today Qualifiers: Altered mental status type: somnolence Qualified Code(s): R40.0 - Somnolence (8) Acute kidney injury superimposed on chronic kidney disease Current Visit: Yes Status: Acute Patient is responding to diuresis to follow electrolytes and serum creatinine. Subjective Principal diagnosis: acute on chronic diastolic heart failure Interval history: Patient is doing well off BIPAP say her breathing is lot better slowly responding to lasix 40 mg IV BID , denies any much cough or sputum production denies any chest pain or tightness . She is willing to use BiPAP when she is sleeping during the day and the night Objective PUL Vital signs: Last Vital Signs Temp 97.5 F L 07/13/18 07:49 Pulse 75 07/13/18 07:49 Resp 16 07/13/18 08:09 BP 153/75 07/13/18 07:49 Pulse Ox 98 07/13/18 08:09 General appearance: alert Auscultation: bilateral: diminished breath sounds, rales (Scattered rales) Cardiovascular: irregular rhythm Gastrointestinal: other (obese distended abdomen ) Extremities: edema Results - Laboratory Findings CBC and BMP: 07/13/18 08:06 07/13/18 08:06 ABG ABG pH 7.33 pH Units (7.32-7.45) 07/13/18 08:00 ABG pCO2 92 mmHg (35-45) H* 07/13/18 08:00 ABG pO2 129 mmHg (85-104) H 07/13/18 08:00 ABG O2 Saturation 98 % (95-98) 07/13/18 08:00 Abnormal lab findings: Abnormal lab results ABG pCO2 92 mmHg (35-45) H* 07/13/18 08:00 ABG pO2 129 mmHg (85-104) H 07/13/18 08:00 ABG HCO3 49 mEq/L (21-27) H 07/13/18 08:00 ABG Total CO2 51 mEq/L (20-26) H 07/13/18 08:00 ABG Base Excess 19 mEq/L (-2 to 3) H 07/13/18 08:00 POC Glucose 126 mg/dL (70-99) H 07/13/18 07:54 Troponin I 0.08 ng/mL (< 0.04) H* 07/12/18 21:30 B-Natriuretic Peptide 1406 pg/mL (Less than 100) H 07/12/18 15:58 Digoxin 3.8 ng/mL (0.8-2.0) H* 07/12/18 15:58 - Microbiology Findings Microbiology Findings: Microbiology, Last 48 Hours 07/12/18 15:58 Blood Culture - Preliminary Peripheral Venipuncture Culture is incubating and being continuously monitored for growth. Final report to follow. 07/12/18 15:58 Blood Culture - Preliminary Peripheral Venipuncture Culture is incubating and being continuously monitored for growth. Final report to follow. - Clinical Findings Intake & Output: Intake & Output 07/12/18 07/13/18 07/13/18 23:59 07:59 15:59 Intake Total 100 / 100 100 / 100 Output Total 250 / 250 900 / 900 Balance -150 / -150 -800 / -800 Weight 124 kg Consult Discharge Plan - Plan Referrals: NONE,PCP [Non-Partnered Physician] -
[2018-07-13 08:57] LABS: Hematocrit 31.6 % (35.3-44.9); Hemoglobin 9.1 g/dL (11.5-15.4); Mean Corpuscular HGB Conc 28.8 g/dL (31.6-35.5); Mean Corpuscular Hemoglobin 28.3 pg (28.0-33.3); Mean Corpuscular Volume 98.4 fL (83.0-100.0); Mean Platelet Volume 11.9 fL (9.4-12.4); Platelet Count 206 K/mcL (140-400); Red Blood Count 3.21 M/mcL (3.82-4.97); Red Cell Distribution Width 15.9 % (11.5-14.5)
[2018-07-13 09:04] LABS: Calcium 9.5 mg/dL (8.6-10.3); Magnesium 1.9 mg/dL (1.6-2.6); Phosphorous 3.6 mg/dL (2.7-4.5)
[2018-07-13 09:34] LABS: Eosinophils # 0.4 K/mcL (0.0-0.6); Lymphocytes # 2.5 K/mcL (0.6-4.6); Monocytes # 0.5 K/mcL (0.0-1.3); Neutrophils # 5.5 K/mcL (1.6-8.9)
[2018-07-13 09:36] LABS: Hypochromasia Present (Not Present); Platelet Estimate Normal (Normal); Polychromasia 1+ (Not Present)
--- NOTE | 2018-07-13 11:57 | Internal Med Progress Note ---
Hospitalist Progress Note - Encounter Date of Encounter: 07/13/18 Time of Encounter: 11:53 - Subjective Interval History: Patient seen and evaluated at bedside, awake, following commands, denies chest pain or shortness of breath. - Exam Vitals: Temp Pulse Resp BP Pulse Ox 98.2 F 72 16 153/69 98 07/13/18 11:00 07/13/18 11:00 07/13/18 11:08 07/13/18 11:00 07/13/18 11:08 Exam: General: Alert and oriented x3. In no distress on a BiPap Cardiovascular: Irregularly, irregular, Normal S1 & S2, no rubs, murmurs or gallops. JVD unable to be access to due short neck. Lungs: Minimal crackles at the left base bilaterally, no wheezing. Abdomen: Obese, Soft, non-tender, no rigidity. Extremities: Anasarca, strength 5/5 in the upper and lower extremities Neurological: CN II-XII intact Rest of the physical exam is non contributory - Assessment and Plan (1) Acute and chronic respiratory failure Current Visit: No Status: Acute Assessment and Plan: Most likely due to Acute CHF exacerbation. Respiratory status improved when compared with yesterday. Pulm consulted recommended continuos BiPap, no settings modification plus diuresis. Will repeat am ABG. (2) CHF exacerbation Current Visit: No Status: Acute Assessment and Plan: 1 litter negative balance Will continue IV diuresis with furosemide 40mg/IV BID Daily weight and fluids restriction to 1.5 litters a day. No carey inhibitors due to MARIFER. Continue Metolazone 5mg/PO 30 minutes before given furosemide (3) Pleural effusion Current Visit: Yes Status: Acute Assessment and Plan: Patient on IV antibiotics plus diuresis. will continue current management (4) MARIFER (acute kidney injury) Current Visit: No Status: Acute Assessment and Plan: Most likely due to acute decompensated heart failure Continue IV diuresis. Avoid nephrotoxic medications. adjust medications for a GFR of 40% (5) Elevated troponin Current Visit: No Status: Acute Assessment and Plan: No EKG changes. Possible due to demand ischemia in the setting of decompensated CHF. Will repeat trops this afternoon. (6) Afib Current Visit: No Status: Chronic Assessment and Plan: rate controlled. On metoprolol 25mg/PO daily. On xarelto due to high CHADSVASC score. Will resume Cardizmen tomorrow morning if BP tolerated it (7) COPD (chronic obstructive pulmonary disease) Current Visit: No Status: Chronic Assessment and Plan: Continue BiPap, Nebs scheduled. (8) Phrenic nerve palsy Current Visit: No Status: Chronic (9) Altered mental status Current Visit: Yes Status: Resolved Assessment and Plan: Most likely due to Hypercapnia. Intracranial abnormality ruled out with head CT. (10) Morbid obesity with BMI of 50.0-59.9, adult Current Visit: No Status: Acute (11) DVT prophylaxis Current Visit: Yes Status: Acute Assessment and Plan: On an oral anticoagulant due to A.fib. (12) Pneumonia Current Visit: Yes Status: Acute Assessment and Plan: CT chest w/o contrast IMPRESSION: 1. Small left hip effusion with adjacent opacity. Findings can be seen in the setting of infection in the appropriate clinical setting. Correlate with clinical symptoms. Atelectasis can have a similar appearance. 2. Stable small right pleural effusion with right base atelectasis secondary to elevation of the right hemidiaphragm. Plan Continue current antibiotics coverage as patient clinically responding to it f/u final blood culture report Sputum culture and Gram stain - Summary of Assessment and Plan Summary of Assessment and Plan: Patient to remain hospitalized due to hypercapnic respiratory failure, acute HFpEF exacerbation. - Time Spent with Patient Total time spent is greater than 50% in coordination of care (as documented) at patient's floor/unit and/or counseling patient: Greater than 35 minutes Plan of Care Discussed with: patient (the nurse.) Internal Medicine: Result - Labs CBC & Chem 7: 07/13/18 08:06 07/13/18 08:06 Labs: Short CBC 07/13/18 Range/Units 08:06 WBC 8.8 (4.3-11.1) K/mcL Hgb 9.1 L (11.5-15.4) g/dL Hct 31.6 L (35.3-44.9) % Plt Count 206 (140-400) K/mcL Neutrophils # 5.5 (1.6-8.9) K/mcL BMP 07/13/18 08:06 Sodium 142 Potassium 5.0 Chloride 93 L Carbon Dioxide 39 H BUN 30 H Creatinine 1.30 H Glucose 117 H Calcium 9.5 Cardiac Enzymes 07/12/18 07/12/18 Range/Units 15:58 21:30 Troponin I 0.09 H* 0.08 H* (< 0.04) ng/mL - ABG Interpretation ABG results: ABG ABG pH 7.33 pH Units (7.32-7.45) 07/13/18 08:00 ABG pCO2 92 mmHg (35-45) H* 07/13/18 08:00 ABG pO2 129 mmHg (85-104) H 07/13/18 08:00 ABG O2 Saturation 98 % (95-98) 07/13/18 08:00 - Impressions Impressions Chest CT 07/13/18 10:00 IMPRESSION: 1. Small left hip effusion with adjacent opacity. Findings could be seen the setting of infection in the appropriate clinical setting. Correlate with clinical symptoms. Atelectasis can have a similar appearance. 2. Stable small right pleural effusion with right base atelectasis secondary to elevation of the right hemidiaphragm. D/ / Louise Foster MD / Louise Foster MD Interpreting Provider: Louise Foster MD Head CT 07/13/18 10:00 IMPRESSION: No acute intracranial abnormality. D/ / Pastor Perez MD / Pastor Perez MD Interpreting Provider: Pastor Perez MD Consult Discharge Plan - Plan Referrals: NONE,PCP [Non-Partnered Physician] - (1) Acute and chronic respiratory failure Qualifiers: Respiratory failure complication: hypoxia and hypercapnia Qualified Code(s): J96.21 - Acute and chronic respiratory failure with hypoxia; J96.22 - Acute and chronic respiratory failure with hypercapnia (2) CHF exacerbation Qualifiers: Heart failure type: diastolic Qualified Code(s): I50.33 - Acute on chronic diastolic (congestive) heart failure (6) Afib Qualifiers: Atrial fibrillation type: chronic Qualified Code(s): I48.2 - Chronic atrial fibrillation (7) COPD (chronic obstructive pulmonary disease) Qualifiers: COPD type: unspecified COPD Qualified Code(s): J44.9 - Chronic obstructive pulmonary disease, unspecified (9) Altered mental status Qualifiers: Altered mental status type: somnolence Qualified Code(s): R40.0 - Somnolence (12) Pneumonia Qualifiers: Pneumonia type: due to unspecified organism Laterality: unspecified laterality Lung location: unspecified part of lung Qualified Code(s): J18.9 - Pneumonia, unspecified organism
--- NOTE | 2018-07-13 15:07 | Electrocardiograph Report ---
[address] [place], [place] [address] Test Date: 2018-07-13 Pat Name: Carmen Cox Department: 111 Room: 2NE23 Gender: F Check Scaler: : 1955 Requested By: Damari Akins Order Number: [id number] Reading MD: Melia Diaz Measurements Intervals [place] Rate: 74 P: 60 UT: 158 QRS: 42 QRSD: 105 T: 0 QT: 344 QTc: 371 Interpretive Statements SINUS RHYTHM LOW QRS VOLTAGE INCOMPLETE RIGHT BUNDLE BRANCH BLOCK NONSPECIFIC STT ABNORMALITY Electronically Signed On 07-13-2018 15:05:53 EDT by Melia Diaz
[2018-07-13] MEDS: *HR* Rivaroxaban 10 MG TABLET PO SCH (16:11)
[2018-07-13] MEDS: traMADol 50 MG TABLET PO PRN (17:52)
[2018-07-13] MEDS: Insulin DETEMIR 100 UNIT/ML X5UNITS SQ SCH (20:18)
[2018-07-14] MEDS: Ipratropium/Albuterol Neb 3 ML IH SCH ×6 (00:08→19:58)
[2018-07-14] MEDS: Piperacillin/Tazobactam 3.375 GM in 0.9 % Sodium Chloride Mini Bag 100 ML IVPB SCH ×3 (00:44→17:38)
[2018-07-14 05:30] LABS: Bilirubin,Urine Negative (Negative); Blood,Urine Moderate (Negative); Clarity,Urine Clear (Clear); Color,Urine Yellow (Yellow); Glucose,Urine (UA) Normal (Normal); Ketones,Urine Negative (Negative); Leukocyte Esterase,Urine Trace (Negative); Nitrite,Urine Negative (Negative); Protein,Urine Negative (Neg-Trace); Specific Gravity,Urine 1.006 (1.010-1.025); Urobilinogen,Urine Normal (Normal)
[2018-07-14 05:45] LABS: Immature Granulocytes % 2.6 % (0-4); Platelet Count 192 K/mcL (140-400)
[2018-07-14 05:47] LABS: Basophils # 0.1 K/mcL (0.0-0.2); Basophils % 0.9 %; Hematocrit 30.7 % (35.3-44.9); Hemoglobin 8.7 g/dL (11.5-15.4); Lymphocytes # 1.4 K/mcL (0.6-4.6); Lymphocytes % 19.9 %; Mean Corpuscular HGB Conc 28.3 g/dL (31.6-35.5); Mean Corpuscular Hemoglobin 27.9 pg (28.0-33.3); Mean Corpuscular Volume 98.4 fL (83.0-100.0); Mean Platelet Volume 12.2 fL (9.4-12.4); Monocytes # 0.8 K/mcL (0.0-1.3); Monocytes % 11.9 %; Neutrophils # 4.5 K/mcL (1.6-8.9); Red Blood Count 3.12 M/mcL (3.82-4.97); Segmented Neutrophils % 64.7 %
[2018-07-14 06:26] LABS: Calcium 9.3 mg/dL (8.6-10.3); Magnesium 1.7 mg/dL (1.6-2.6); Phosphorous 3.3 mg/dL (2.7-4.5); Potassium 3.9 mEq/L (3.5-5.1)
[2018-07-14 07:06] LABS: Hyaline Casts,Urine Few per lpf (None-Few); Squamous Epithelial Cell,Urine Few per lpf (None-Few)
[2018-07-14 07:07] LABS: Bacteria,Urine Few per hpf (None-Few); WBC,Urine 0-3 per hpf (0-3)
[2018-07-14] MEDS: Insulin LISPRO 300 UNITS/3 ML VIAL SQ SCH ×3 (07:27→17:05)
--- NOTE | 2018-07-14 07:30 | Pulmonology Progress Note ---
Date of Encounter: 07/14/18 Time of Encounter: 07:30 Assessment and Plan (1) Acute on chronic respiratory failure with hypoxia and hypercapnia Current Visit: No Status: Acute Patient need to continue BiPAP when she is sleeping during the day and during the night I will give FULL LIQUID DIET instead OF Regular DIABETIC DIET. Since patient is using quite higher pressure or BiPAP high chance of aspiration and also high chance of respiratory decline so we will keep her on full liquid diet . To continue the current settings of BiPAP hopefully she will do well with continued diuresis. 07/14 Patient is doing well on diuresis sr creatinine and BNP is trending down . To continue diuresis and BIPAP . Can advance diet as tolerated she will need BIPAP during naps and sleep. (2) Acute on chronic diastolic (congestive) heart failure Current Visit: Yes Status: Acute Patient responding well to diuresis hemodynamically stable follow electrolytes and serum creatinine. Last sr . creatinine is trending down more suggestive of cardiorenal syndrome. (3) COPD (chronic obstructive pulmonary disease) Current Visit: No Status: Chronic To continue with scheduled bronchodilators. Qualifiers: COPD type: unspecified COPD Qualified Code(s): J44.9 - Chronic obstructive pulmonary disease, unspecified (4) Pleural effusion Current Visit: Yes Status: Acute Small left-sided pleural effusion not enough Pocket to drain. (5) AIMEE (obstructive sleep apnea) Current Visit: No Status: Chronic Continue BiPAP during the day and the night. To give breaks for diet. (6) Phrenic nerve palsy Current Visit: No Status: Chronic Chronic right-sided phrenic nerve palsy. (7) Altered mental status Current Visit: Yes Status: Resolved Patient is doing well mental status acute on chronic hypercarbia is improving. Qualifiers: Altered mental status type: somnolence Qualified Code(s): R40.0 - Somnolence (8) Acute kidney injury superimposed on chronic kidney disease Current Visit: Yes Status: Acute Patient is responding to diuresis to follow electrolytes and serum creatinine. Subjective Principal diagnosis: acute on chronic diastolic heart failure Interval history: Patient is sleeping doing well on BiPAP patient's says her breathing is lot better denies any chest pain or chest tightness denies any fever or chills denies not much cough or sputum production. Objective PUL Vital signs: Last Vital Signs Temp 97.7 F 07/14/18 07:12 Pulse 71 07/14/18 07:12 Resp 19 07/14/18 07:12 BP 130/70 07/14/18 07:12 Pulse Ox 97 07/14/18 07:12 General appearance: asleep, other (wakes up from sleep following commands and she is oriented ) Auscultation: bilateral: diminished breath sounds, rales (very scattered rales ) Cardiovascular: irregular rhythm Gastrointestinal: other (soft , obese ) Extremities: edema Results - Laboratory Findings CBC and BMP: 07/14/18 03:37 07/14/18 03:37 ABG ABG pH 7.33 pH Units (7.32-7.45) 07/13/18 08:00 ABG pCO2 92 mmHg (35-45) H* 07/13/18 08:00 ABG pO2 129 mmHg (85-104) H 07/13/18 08:00 ABG O2 Saturation 98 % (95-98) 07/13/18 08:00 Abnormal lab findings: Abnormal lab results RBC 3.12 M/mcL (3.82-4.97) L 07/14/18 03:37 Hgb 8.7 g/dL (11.5-15.4) L 07/14/18 03:37 Hct 30.7 % (35.3-44.9) L 07/14/18 03:37 MCH 27.9 pg (28.0-33.3) L 07/14/18 03:37 MCHC 28.3 g/dL (31.6-35.5) L 07/14/18 03:37 RDW 16.0 % (11.5-14.5) H 07/14/18 03:37 Band Neutrophils % 6.0 % (0-4) H 07/13/18 08:06 Polychromasia 1+ (Not Present) A 07/13/18 08:06 Hypochromasia Present (Not Present) A 07/13/18 08:06 ABG pCO2 92 mmHg (35-45) H* 07/13/18 08:00 ABG pO2 129 mmHg (85-104) H 07/13/18 08:00 ABG HCO3 49 mEq/L (21-27) H 07/13/18 08:00 ABG Total CO2 51 mEq/L (20-26) H 07/13/18 08:00 ABG Base Excess 19 mEq/L (-2 to 3) H 07/13/18 08:00 Chloride 90 mEq/L (98-107) L 07/14/18 03:37 Carbon Dioxide 41 mEq/L (23-29) H* 07/14/18 03:37 BUN 27 mg/dL (8-23) H 07/14/18 03:37 Creatinine 1.25 mg/dL (0.60-1.20) H 07/14/18 03:37 Est GFR ( Amer) 52 (> 60) L 07/14/18 03:37 Est GFR (Non-Af Amer) 43 (> 60) L 07/14/18 03:37 POC Glucose 126 mg/dL (70-99) H 07/13/18 07:54 Troponin I 0.07 ng/mL (< 0.04) H* 07/13/18 12:22 B-Natriuretic Peptide 1019 pg/mL (Less than 100) H 07/13/18 08:06 Ur Specific [place] 1.006 (1.010-1.025) L 07/13/18 15:25 Urine Blood Moderate (Negative) H 07/13/18 15:25 Ur Leukocyte Esterase Trace (Negative) H 07/13/18 15:25 Urine Microscopic RBC 5-15 per hpf (0-3) H 07/13/18 15:25 - Microbiology Findings Microbiology Findings: Microbiology, Last 48 Hours 07/12/18 15:58 Blood Culture - Preliminary Peripheral Venipuncture Culture is incubating and being continuously monitored for growth. Final report to follow. 07/12/18 15:58 Blood Culture - Preliminary Peripheral Venipuncture Culture is incubating and being continuously monitored for growth. Final report to follow. - Clinical Findings Intake & Output: Intake & Output 07/13/18 07/13/18 07/14/18 15:59 23:59 07:59 Intake Total 100 / 100 220 / 220 100 / 100 Output Total 875 / 875 1625 / 1625 1550 / 1550 Balance -775 / -775 -1405 / -1405 -1450 / -1450 Weight 124.1 kg Consult Discharge Plan - Plan Referrals: NONE,PCP [Non-Partnered Physician] -
[2018-07-14 07:32] LABS: Hypochromasia Present (Not Present); Platelet Estimate Normal (Normal)
[2018-07-14 08:27] LABS: ABG Base Excess 23 mEq/L (-2 to 3); ABG HCO3 53 mEq/L (21-27); ABG Oxygen Saturation 92 % (95-98); ABG PCO2 85 mmHg (35-45); ABG PO2 68 mmHg (85-104); ABG TCO2 55 mEq/L (20-26); Blood Gas VT 500 cc
[2018-07-14] MEDS: Furosemide 20 MG/2 ML VIAL IVP SCH ×2 (08:50→17:37)
[2018-07-14] MEDS: metOLazone 5 MG TABLET PO SCH (08:50)
[2018-07-14] MEDS: Metoprolol XL (24 HR) Succ 25 MG TAB.ER.24H PO SCH (08:50)
--- NOTE | 2018-07-14 15:01 | Internal Med Progress Note ---
Hospitalist Progress Note - Encounter Date of Encounter: 07/14/18 Time of Encounter: 14:58 - Subjective Interval History: Patient seen and evaluated at bedside, on the Bipap, awake, alert and oriented. Reports no respiratory distress of chest pain. No nausea or vomiting. - Exam Vitals: Temp Pulse Resp BP Pulse Ox 97.8 F 71 20 169/77 96 07/14/18 11:45 07/14/18 11:45 07/14/18 11:45 07/14/18 11:45 07/14/18 11:45 Exam: General: Alert and oriented x3. In no distress on a BiPap Cardiovascular: Irregularly, irregular, Normal S1 & S2, no rubs, murmurs or gallops. JVD unable to be access to due short neck. Lungs: Clear to auscultation b/l, no crackles, rales wheezing. Abdomen: Obese, Soft, non-tender, no rigidity. Extremities: Anasarca, strength 5/5 in the upper and lower extremities Neurological: CN II-XII intact Rest of the physical exam is non contributory - Assessment and Plan (1) Acute and chronic respiratory failure Current Visit: No Status: Acute Assessment and Plan: Due to Acute CHF exacerbation. Plan Pulmonary recommended intermittent BiPap, ABG in the morning will continue to follow Pulm recommendations Duo-Nebs Nebs Q4RT PRN (2) CHF exacerbation Current Visit: No Status: Acute Assessment and Plan: 5 litters negative balance continue current IV diuresis with furosemide 40mg/IV BID Daily weight fluids restriction to 1.5 litters a day. No carey inhibitors due to MARIFER. Continue Metolazone 5mg/PO 30 minutes before given furosemide (3) MARIFER (acute kidney injury) Current Visit: No Status: Acute Assessment and Plan: Improving with diuresis. Most likely cardio renal. Continue current management. (4) Afib Current Visit: No Status: Chronic Assessment and Plan: Rate controlled. Will resume patient home dose of cardizem. Continue Metoprolol 25mg/PO daily. On an oral anticoagulant due to high CHADSVASC score. (5) COPD (chronic obstructive pulmonary disease) Current Visit: No Status: Chronic Assessment and Plan: Plan of care as problem #1. (6) Phrenic nerve palsy Current Visit: No Status: Chronic (7) Morbid obesity with BMI of 50.0-59.9, adult Current Visit: No Status: Acute (8) Pneumonia Current Visit: Yes Status: Acute Assessment and Plan: CT chest w/o contrast IMPRESSION: 1. Small left hip effusion with adjacent opacity. Findings can be seen in the setting of infection in the appropriate clinical setting. Correlate with clinical symptoms. Atelectasis can have a similar appearance. 2. Stable small right pleural effusion with right base atelectasis secondary to elevation of the right hemidiaphragm. Plan Continue Piperacillin/Tazobactam. Will de-escalate antibiotics in the following 24 hours. B/C no growth, pending final report (9) Diabetes Current Visit: No Status: Chronic Assessment and Plan: Blood sugar running in the low side. Decrease levemir to 5 units HS, continue low dose Lispro sliding scale AC. (10) Hypertension Current Visit: Yes Status: Acute Assessment and Plan: BP sub-optimally controlled. Patient on Metoprolo. started on Home dose of cardizem. DVT Prophylaxis: Patient on an oral anticoagulant due to A.Fib. - Summary of Assessment and Plan Summary of Assessment and Plan: Patient to remain in the hospital due to Hypercapnic respiratory failure, and CHF exacerbation. - Time Spent with Patient Total time spent is greater than 50% in coordination of care (as documented) at patient's floor/unit and/or counseling patient: 25 - 35 minutes Plan of Care Discussed with: patient (the nurse.) Internal Medicine: Result - Labs CBC & Chem 7: 07/14/18 03:37 07/14/18 03:37 Labs: Short CBC 07/14/18 Range/Units 03:37 WBC 7.0 (4.3-11.1) K/mcL Hgb 8.7 L (11.5-15.4) g/dL Hct 30.7 L (35.3-44.9) % Plt Count 192 (140-400) K/mcL Neutrophils # 4.5 (1.6-8.9) K/mcL BMP 07/14/18 03:37 Sodium 143 Potassium 3.9 Chloride 90 L Carbon Dioxide 41 H* BUN 27 H Creatinine 1.25 H Glucose 77 Calcium 9.3 Cardiac Enzymes 07/13/18 Range/Units 12:22 Troponin I 0.07 H* (< 0.04) ng/mL Urine 07/13/18 Range/Units 15:25 Urine Color Yellow (Yellow) Urine Clarity Clear (Clear) Urine pH 6.0 (5.0-8.0) pH Units Ur Specific [place] 1.006 L (1.010-1.025) Urine Protein Negative (Neg-Trace) mg/dL Urine Glucose (UA) Normal (Normal) mg/dL - ABG Interpretation ABG results: ABG ABG pH 7.40 pH Units (7.32-7.45) 07/14/18 08:10 ABG pCO2 85 mmHg (35-45) H* 07/14/18 08:10 ABG pO2 68 mmHg (85-104) L 07/14/18 08:10 ABG O2 Saturation 92 % (95-98) L 07/14/18 08:10 Consult Discharge Plan - Plan Referrals: NONE,PCP [Non-Partnered Physician] - (1) Acute and chronic respiratory failure Qualifiers: Respiratory failure complication: hypoxia and hypercapnia Qualified Code(s): J96.21 - Acute and chronic respiratory failure with hypoxia; J96.22 - Acute and chronic respiratory failure with hypercapnia (2) CHF exacerbation Qualifiers: Heart failure type: diastolic Qualified Code(s): I50.33 - Acute on chronic diastolic (congestive) heart failure (4) Afib Qualifiers: Atrial fibrillation type: chronic Qualified Code(s): I48.2 - Chronic atrial fibrillation (5) COPD (chronic obstructive pulmonary disease) Qualifiers: COPD type: unspecified COPD Qualified Code(s): J44.9 - Chronic obstructive pulmonary disease, unspecified (8) Pneumonia Qualifiers: Pneumonia type: due to unspecified organism Laterality: unspecified laterality Lung location: unspecified part of lung Qualified Code(s): J18.9 - Pneumonia, unspecified organism (9) Diabetes Qualifiers: Diabetes mellitus type: type 2 Diabetes mellitus terminal block assembler insulin use: without terminal block assembler use Diabetes mellitus complication status: with kidney complications Diabetes mellitus complication detail: with chronic kidney disease Chronic kidney disease stage: stage 3 (moderate) Qualified Code(s): E11.22 - Type 2 diabetes mellitus with diabetic chronic kidney disease; N18.3 - Chronic kidney disease, stage 3 (moderate) (10) Hypertension Qualifiers: Hypertension type: unspecified Qualified Code(s): I10 - Essential (primary) hypertension
[2018-07-14] MEDS: Diltiazem CD (24hr) 180 MG CAPSULE PO SCH (17:37)
[2018-07-14] MEDS: *HR* Rivaroxaban 10 MG TABLET PO SCH (17:39)
[2018-07-14] MEDS ORDERED: Insulin DETEMIR 100 UNIT/ML X5UNITS SQ SCH (21:00)
[2018-07-14] MEDS: traMADol 50 MG TABLET PO PRN (23:29)
[2018-07-15] MEDS: Ipratropium/Albuterol Neb 3 ML IH SCH ×7 (00:24→23:20)
[2018-07-15] MEDS: Piperacillin/Tazobactam 3.375 GM in 0.9 % Sodium Chloride Mini Bag 100 ML IVPB SCH (01:13)
[2018-07-15 03:44] LABS: Basophils # 0.1 K/mcL (0.0-0.2); Basophils % 0.7 %; Eosinophils % 0.1 %; Hematocrit 30.5 % (35.3-44.9); Hemoglobin 8.6 g/dL (11.5-15.4); Immature Granulocytes % 1.7 % (0-4); Lymphocytes # 1.4 K/mcL (0.6-4.6); Lymphocytes % 18.2 %; Mean Corpuscular HGB Conc 28.2 g/dL (31.6-35.5); Mean Corpuscular Hemoglobin 27.6 pg (28.0-33.3); Mean Corpuscular Volume 97.8 fL (83.0-100.0); Mean Platelet Volume 11.2 fL (9.4-12.4); Monocytes # 0.8 K/mcL (0.0-1.3); Platelet Count 201 K/mcL (140-400); Red Blood Count 3.12 M/mcL (3.82-4.97); Segmented Neutrophils % 69.3 %
[2018-07-15 03:50] LABS: Neutrophils # 5.3 K/mcL (1.6-8.9)
[2018-07-15 04:17] LABS: Anisocytosis 1+ (Not Present); Hypochromasia Present (Not Present); Platelet Estimate Normal (Normal); Polychromasia 1+ (Not Present)
[2018-07-15 04:38] LABS: BUN/Creatinine Ratio 19 (6-26); Blood Urea Nitrogen 20 mg/dL (8-23); Calcium 9.3 mg/dL (8.6-10.3); Chloride 84 mEq/L (98-107); Glucose 87 mg/dL (70-105); Magnesium 1.5 mg/dL (1.6-2.6); Osmolality,Calculated 300 (280-300); Phosphorous 2.7 mg/dL (2.7-4.5); Potassium 3.1 mEq/L (3.5-5.1); Sodium 144 mEq/L (136-145); eGFR For Non-African Americans 52 (> 60)
[2018-07-15 04:48] LABS: Carbon Dioxide > 45 mEq/L (23-29)
[2018-07-15 05:37] LABS: ABG Base Excess 28 mEq/L (-2 to 3); ABG HCO3 55 mEq/L (21-27); ABG Oxygen Saturation 96 % (95-98); ABG PCO2 70 mmHg (35-45); ABG PH 7.51 pH Units (7.32-7.45); ABG PO2 79 mmHg (85-104); ABG TCO2 57 mEq/L (20-26); Blood Gas Modality AVAPS; Blood Gas PEEP 8 cm H2O; Blood Gas VT 500 cc
[2018-07-15] MEDS: Insulin LISPRO 300 UNITS/3 ML VIAL SQ SCH ×3 (08:32→17:08)
[2018-07-15] MEDS: levoFLOXacin 750 MG TABLET PO SCH (08:38)
[2018-07-15] MEDS: Metoprolol XL (24 HR) Succ 25 MG TAB.ER.24H PO SCH (08:38)
[2018-07-15] MEDS: metOLazone 5 MG TABLET PO SCH (08:38)
[2018-07-15] MEDS: Furosemide 20 MG/2 ML VIAL IVP SCH ×2 (08:39→16:53)
[2018-07-15] MEDS: traMADol 50 MG TABLET PO PRN (11:51)
--- NOTE | 2018-07-15 13:46 | Internal Med Progress Note ---
Hospitalist Progress Note - Encounter Date of Encounter: 07/15/18 Time of Encounter: 13:42 - Subjective Interval History: Patient seen and evaluated at bedside, patient respiratory status has significantly improved, patient is close to her baseline. Denies shortness of breath or chest pain. Out of bed to chair, on BiPAP. As patient mental status has improved Will change diet to regular, 2 g sodium Controlled. - Exam Vitals: Temp Pulse Resp BP Pulse Ox 98.4 F 55 20 120/60 96 07/15/18 11:06 07/15/18 11:06 07/15/18 11:07/15/18 11:07/15/18 11:06 Exam: General: Alert and oriented x3. In no distress on a BiPap Cardiovascular: Irregularly, irregular, Normal S1 & S2, no rubs, murmurs or gallops. JVD unable to be access to due short neck. Lungs: Clear to auscultation b/l, no crackles, rales wheezing. Abdomen: Obese, Soft, non-tender, no rigidity. Extremities: 2+ edema in the lower ext b/l Neurological: Normal cognition. CN II-XII intact Rest of the physical exam is non contributory - Assessment and Plan (1) Acute and chronic respiratory failure Current Visit: No Status: Acute Assessment and Plan: Significant improvement in respiratory status. Will continue intermittent BiPap and diuresis. Will follow pulm recommendations. As patient mental status has improved Will change diet to regular, 2 g sodium Controlled. (2) CHF exacerbation Current Visit: No Status: Acute Assessment and Plan: 10 litters balance negative. Continue IV diuresis with furosemide 40mg/IV BID daily weight and strict intake and output. Patient on Metoprolol 25mg/PO daily 2gram Sodium diet Will discontinue metolazone (3) MARIFER (acute kidney injury) Current Visit: No Status: Acute Assessment and Plan: resolved. Most likely due to Acute CHF exacerbation. (4) Afib Current Visit: No Status: Chronic Assessment and Plan: Rate controlled. On metoprolol and cardizem. On Ribaroxaban for anticaogulation Continue current therapy. (5) COPD (chronic obstructive pulmonary disease) Current Visit: No Status: Chronic Assessment and Plan: Continue Duo-Nebs PRN on empiric antibiotics incentive spirometry if tolerated. (6) Phrenic nerve palsy Current Visit: No Status: Chronic (7) Morbid obesity with BMI of 50.0-59.9, adult Current Visit: No Status: Acute (8) Pneumonia Current Visit: Yes Status: Acute Assessment and Plan: Continue levofloxacin 750 mg by mouth daily. Blood cultures, no growth. Pending final report. (9) Diabetes Current Visit: No Status: Chronic Assessment and Plan: Blood sugar has run in the low side, we will discontinue Levemir to avoid hypoglycemia. Continue with lispro sliding scale before meals. (10) Hypertension Current Visit: Yes Status: Acute Assessment and Plan: Blood pressure well controlled. Patient on multiple antihypertensive medication. Continue Cardizem, metoprolol, and furosemide. (11) Hypokalemia Current Visit: Yes Status: Acute Assessment and Plan: Most likely due to IV diuretics. Electrolytes replaced (12) Hypomagnesemia Current Visit: Yes Status: Acute Assessment and Plan: Electrolyte replaced. f/u am BMP DVT Prophylaxis: On an oral anticoagulant due to A.Fib. - Summary of Assessment and Plan Summary of Assessment and Plan: Patient to remain in the hospital, due to hypercapnic respiratory failure, and CHF on IV diuresis. - Time Spent with Patient Total time spent is greater than 50% in coordination of care (as documented) at patient's floor/unit and/or counseling patient: 25 - 35 minutes Plan of Care Discussed with: patient (the nurse and family.) Internal Medicine: Result - Labs CBC & Chem 7: 07/15/18 03:20 07/15/18 03:20 Labs: Short CBC 07/15/18 Range/Units 03:20 WBC 7.6 (4.3-11.1) K/mcL Hgb 8.6 L (11.5-15.4) g/dL Hct 30.5 L (35.3-44.9) % Plt Count 201 (140-400) K/mcL Neutrophils # 5.3 (1.6-8.9) K/mcL BMP 07/15/18 03:20 Sodium 144 Potassium 3.1 L Chloride 84 L Carbon Dioxide > 45 H* BUN 20 Creatinine 1.07 Glucose 87 Calcium 9.3 - ABG Interpretation ABG results: ABG ABG pH 7.51 pH Units (7.32-7.45) H 07/15/18 05:34 ABG pCO2 70 mmHg (35-45) H* 07/15/18 05:34 ABG pO2 79 mmHg (85-104) L 07/15/18 05:34 ABG O2 Saturation 96 % (95-98) 07/15/18 05:34 Consult Discharge Plan - Plan Referrals: NONE,PCP [Non-Partnered Physician] - (1) Acute and chronic respiratory failure Qualifiers: Respiratory failure complication: hypoxia and hypercapnia Qualified Code(s): J96.21 - Acute and chronic respiratory failure with hypoxia; J96.22 - Acute and chronic respiratory failure with hypercapnia (2) CHF exacerbation Qualifiers: Heart failure type: diastolic Qualified Code(s): I50.33 - Acute on chronic diastolic (congestive) heart failure (4) Afib Qualifiers: Atrial fibrillation type: chronic Qualified Code(s): I48.2 - Chronic atrial fibrillation (5) COPD (chronic obstructive pulmonary disease) Qualifiers: COPD type: unspecified COPD Qualified Code(s): J44.9 - Chronic obstructive pulmonary disease, unspecified (8) Pneumonia Qualifiers: Pneumonia type: due to unspecified organism Laterality: unspecified laterality Lung location: unspecified part of lung Qualified Code(s): J18.9 - Pneumonia, unspecified organism (9) Diabetes Qualifiers: Diabetes mellitus type: type 2 Diabetes mellitus half-way insulin use: without rn long term care use Diabetes mellitus complication status: with kidney complications Diabetes mellitus complication detail: with chronic kidney disease Chronic kidney disease stage: stage 3 (moderate) Qualified Code(s): E11.22 - Type 2 diabetes mellitus with diabetic chronic kidney disease; N18.3 - Chronic kidney disease, stage 3 (moderate) (10) Hypertension Qualifiers: Hypertension type: unspecified Qualified Code(s): I10 - Essential (primary) hypertension
[2018-07-15] MEDS: Diltiazem CD (24hr) 180 MG CAPSULE PO SCH (16:53)
[2018-07-15] MEDS: *HR* Rivaroxaban 10 MG TABLET PO SCH (16:53)
[2018-07-16] MEDS: traMADol 50 MG TABLET PO PRN (03:03)
[2018-07-16] MEDS: Ipratropium/Albuterol Neb 3 ML IH SCH ×6 (03:20→23:41)
[2018-07-16 06:32] LABS: Basophils % 0.4 %; Hematocrit 30.9 % (35.3-44.9); Lymphocytes # 1.7 K/mcL (0.6-4.6); Lymphocytes % 24.1 %; Mean Corpuscular HGB Conc 29.1 g/dL (31.6-35.5); Mean Corpuscular Hemoglobin 27.9 pg (28.0-33.3); Mean Corpuscular Volume 95.7 fL (83.0-100.0); Mean Platelet Volume 10.5 fL (9.4-12.4); Monocytes # 0.8 K/mcL (0.0-1.3); Monocytes % 11.4 %; Neutrophils # 4.4 K/mcL (1.6-8.9); Platelet Count 191 K/mcL (140-400); Red Blood Count 3.23 M/mcL (3.82-4.97); Red Cell Distribution Width 16.1 % (11.5-14.5); Segmented Neutrophils % 63.1 %
[2018-07-16 07:09] LABS: BUN/Creatinine Ratio 15 (6-26); Blood Urea Nitrogen 15 mg/dL (8-23); Calcium 9.4 mg/dL (8.6-10.3); Carbon Dioxide > 45 mEq/L (23-29); Chloride 78 mEq/L (98-107); Glucose 102 mg/dL (70-105); Magnesium 1.5 mg/dL (1.6-2.6); Osmolality,Calculated 293 (280-300); Phosphorous 2.6 mg/dL (2.7-4.5); Potassium 2.9 mEq/L (3.5-5.1); Sodium 141 mEq/L (136-145); eGFR For Non-African Americans 55 (> 60)
[2018-07-16] MEDS: Furosemide 20 MG/2 ML VIAL IVP SCH ×2 (08:33→17:32)
[2018-07-16] MEDS: levoFLOXacin 750 MG TABLET PO SCH (08:33)
[2018-07-16] MEDS: Insulin LISPRO 300 UNITS/3 ML VIAL SQ SCH ×3 (08:33→17:32)
[2018-07-16] MEDS: Metoprolol XL (24 HR) Succ 25 MG TAB.ER.24H PO SCH (08:33)
--- NOTE | 2018-07-16 11:59 | Internal Med Progress Note ---
Hospitalist Progress Note - Encounter Date of Encounter: 07/16/18 Time of Encounter: 11:57 - Subjective Interval History: Patient evaluated at bedside, denies shortness of breath or respiratory distress. Reports that she sat on q chair today for about 3 hours denied shortness of breath or respiratory distress during these time. Patient is alert and oriented 4. - Exam Vitals: Temp Pulse Resp BP Pulse Ox 97.9 F 63 15 141/61 100 07/16/18 11:30 07/16/18 11:30 07/16/18 11:30 07/16/18 11:30 07/16/18 11:30 Exam: General: Alert and oriented x3. In no distress on a BiPap Cardiovascular: Irregularly, irregular, Normal S1 & S2, no rubs, murmurs or gallops. JVD unable to be access to due short neck. Lungs: Clear to auscultation b/l, no crackles, rales wheezing. Abdomen: Obese, Soft, non-tender, no rigidity. NABS in all 4 quadrants. Extremities: 2+ edema in the lower ext b/l. Significant improvement in the edema in the lower extr. Neurological: Normal cognition. CN II-XII intact Rest of the physical exam is non contributory - Assessment and Plan (1) Chronic respiratory failure Current Visit: Yes Status: Chronic Assessment and Plan: Patient presented with hypercapnic/hypoxemic respiratory failure which has resolved. On intermittent BiPap and o2 by nasal cannula for meals patient on IV diuresis incentive spirometry if tolerated Duo-Nebs Q4RT scheduled on Empiric antibiotics (2) Diastolic CHF Current Visit: No Status: Chronic Assessment and Plan: total negative balance of 15 litters. Continue Furosemide 40mg/IV BID Continue fluid restriction to 1.5 L a day, and daily weight. 2 g sodium and diabetic diet. (3) Afib Current Visit: No Status: Chronic Assessment and Plan: Rate controlled. Patient on diltiazem and metoprolol. Anticoagulated with Rivarozaban. (4) COPD (chronic obstructive pulmonary disease) Current Visit: No Status: Chronic Assessment and Plan: Plan of care as per #1. (5) Phrenic nerve palsy Current Visit: No Status: Chronic (6) Morbid obesity with BMI of 50.0-59.9, adult Current Visit: No Status: Chronic (7) Pneumonia Current Visit: Yes Status: Resolved Assessment and Plan: Patient has been on antibiotic for 5 days. Continue levofloxacin 750 mg by mouth for 2 more days. (8) Diabetes Current Visit: No Status: Chronic Assessment and Plan: Blood sugar has been running in the low normal side. Patient and lispro before meals. We will discontinue Levemir to avoid hypoglycemia.. (9) Hypertension Current Visit: Yes Status: Acute Assessment and Plan: Blood pressure well controlled. Continue furosemide, metoprolol and diltiazem. (10) Hypokalemia Current Visit: Yes Status: Acute Assessment and Plan: Most likely due to diuresis. Electrolytes replaced. Repeat BMP in the morning. (11) Hypomagnesemia Current Visit: Yes Status: Acute Assessment and Plan: Electrolyte replaced. Follow-up magnesium level in the morning. DVT Prophylaxis: Patient Rivaroxaban due to A.fib - Summary of Assessment and Plan Summary of Assessment and Plan: Potential discharge to long-term tomorrow or the day after tomorrow. Patient has responded appropriately to IV diuresis. - Time Spent with Patient Total time spent is greater than 50% in coordination of care (as documented) at patient's floor/unit and/or counseling patient: 25 - 35 minutes Plan of Care Discussed with: patient (the nurse.) Internal Medicine: Result - Labs CBC & Chem 7: 07/16/18 06:17 07/16/18 06:17 Labs: Short CBC 07/16/18 Range/Units 06:17 WBC 7.0 (4.3-11.1) K/mcL Hgb 9.0 L (11.5-15.4) g/dL Hct 30.9 L (35.3-44.9) % Plt Count 191 (140-400) K/mcL Neutrophils # 4.4 (1.6-8.9) K/mcL BMP 07/16/18 06:17 Sodium 141 Potassium 2.9 L Chloride 78 L Carbon Dioxide > 45 H* BUN 15 Creatinine 1.02 Glucose 102 Calcium 9.4 - ABG Interpretation ABG results: ABG ABG pH 7.51 pH Units (7.32-7.45) H 07/15/18 05:34 ABG pCO2 70 mmHg (35-45) H* 07/15/18 05:34 ABG pO2 79 mmHg (85-104) L 07/15/18 05:34 ABG O2 Saturation 96 % (95-98) 07/15/18 05:34 Consult Discharge Plan - Plan Referrals: NONE,PCP [Non-Partnered Physician] - (1) Chronic respiratory failure Qualifiers: Respiratory failure complication: hypoxia and hypercapnia Qualified Code(s): J96.11 - Chronic respiratory failure with hypoxia; J96.12 - Chronic respiratory failure with hypercapnia (2) Diastolic CHF Qualifiers: Heart failure chronicity: acute on chronic Qualified Code(s): I50.33 - Acute on chronic diastolic (congestive) heart failure (3) Afib Qualifiers: Atrial fibrillation type: chronic Qualified Code(s): I48.2 - Chronic atrial fibrillation (4) COPD (chronic obstructive pulmonary disease) Qualifiers: COPD type: unspecified COPD Qualified Code(s): J44.9 - Chronic obstructive pulmonary disease, unspecified (7) Pneumonia Qualifiers: Pneumonia type: due to unspecified organism Laterality: unspecified laterality Lung location: unspecified part of lung Qualified Code(s): J18.9 - Pneumonia, unspecified organism (8) Diabetes Qualifiers: Diabetes mellitus type: type 2 Diabetes mellitus intermediate insulin use: without intermediate use Diabetes mellitus complication status: with kidney complications Diabetes mellitus complication detail: with chronic kidney disease Chronic kidney disease stage: stage 3 (moderate) Qualified Code(s): E11.22 - Type 2 diabetes mellitus with diabetic chronic kidney disease; N18.3 - Chronic kidney disease, stage 3 (moderate) (9) Hypertension Qualifiers: Hypertension type: unspecified Qualified Code(s): I10 - Essential (primary) hypertension
[2018-07-16 16:40] LABS: ABG Base Excess > 30 mEq/L (-2 to 3); ABG HCO3 61 mEq/L (21-27); ABG Oxygen Saturation 95 % (95-98); ABG PCO2 69 mmHg (35-45); ABG PH 7.55 pH Units (7.32-7.45); ABG PO2 70 mmHg (85-104); ABG TCO2 63 mEq/L (20-26); Blood Gas Modality AVAPS; Blood Gas PEEP 8 cm H2O; Blood Gas VT 500 cc
[2018-07-16] MEDS: *HR* Rivaroxaban 10 MG TABLET PO SCH (17:32)
[2018-07-16] MEDS: Diltiazem CD (24hr) 180 MG CAPSULE PO SCH (17:32)
[2018-07-16] MEDS ORDERED: Gabapentin 300 MG CAPSULE PO SCH (21:00)
[2018-07-17] MEDS: Ipratropium/Albuterol Neb 3 ML IH SCH ×5 (04:00→19:39)
[2018-07-17 05:37] LABS: BUN/Creatinine Ratio 12 (6-26); Blood Urea Nitrogen 11 mg/dL (8-23); Calcium 8.1 mg/dL (8.6-10.3); Carbon Dioxide > 45 mEq/L (23-29); Chloride 85 mEq/L (98-107); Glucose 94 mg/dL (70-105); Magnesium 1.4 mg/dL (1.6-2.6); Osmolality,Calculated 289 (280-300); Phosphorous 2.2 mg/dL (2.7-4.5); Potassium 2.6 mEq/L (3.5-5.1); Sodium 140 mEq/L (136-145); eGFR For Non-African Americans > 60 (> 60)
--- NOTE | 2018-07-17 09:36 | Internal Med Progress Note ---
Hospitalist Progress Note - Encounter Date of Encounter: 07/17/18 Time of Encounter: 09:33 - Subjective Interval History: Evaluated at bedside, patient with some somnolence today, as compared with yesterday when she was awake. No shortness of breth or chest pain. But she is experiencing some jerky/involuntary movements. - Exam Vitals: Temp Pulse Resp BP Pulse Ox 98.7 F 68 21 123/53 95 07/17/18 07:12 07/17/18 07:12 07/17/18 07:32 07/17/18 07:12 07/17/18 07:32 Exam: General: Awake but somnolent, In no distress on a BiPap. jerky involuntary movements seen. Cardiovascular: Irregularly, irregular, Normal S1 & S2, no rubs, murmurs or gallops. JVD unable to be access to due short neck. Lungs: Clear to auscultation b/l, no crackles, rales wheezing. Abdomen: Obese, Soft, non-tender, no rigidity. NABS in all 4 quadrants. Extremities: 2+ edema in the lower ext b/l. Significant improvement in the edema in the lower extr. Neurological: Somnolent. CN II-XII intact Rest of the physical exam is non contributory - Assessment and Plan (1) Hypokalemia Current Visit: Yes Status: Acute Assessment and Plan: Potassium of 2.6. Secondary to diuresis. Will give a total of 100 mEq of potassium Repeat BMP 1 hour post electrolyte replacement Magnesium being replaced as well. (2) Chronic respiratory failure Current Visit: Yes Status: Chronic Assessment and Plan: Patient somnolent today with some jerking movements, similar to those seen in patient with CO2 narcosis. Patient on intermittent BiPAP and Nasal cannula. Duo-Nebs Q4RT Scheduled Incentive spirometry when on Nasal cannula ABG STAT Will inform Manufacturers Representative. and follow recommendations. (3) COPD (chronic obstructive pulmonary disease) Current Visit: No Status: Chronic Assessment and Plan: No on acute exacerbation. Plan of care as above. (4) Diastolic CHF Current Visit: No Status: Chronic Assessment and Plan: total balance negative a 17.3 L. Decrease furosemide to 40 mg IV daily Strict intake and output Daily weight Water restriction to 1.5 L a day. Patient on metoprolol 25 mg by mouth daily. (5) Afib Current Visit: No Status: Chronic Assessment and Plan: Rate controlled. Patient on diltiazem and metoprolol. Continue current management. Anticoagulated with Rivaroxaban for High CHADSVASC score. 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 Pneumonia improving. Continue Antibiotics to complete 7 days. (9) Diabetes Current Visit: No Status: Chronic Assessment and Plan: Blood sugar well controlled. Continue lispro sliding scale before meals. (10) Hypertension Current Visit: Yes Status: Chronic Assessment and Plan: Blood pressure optimally controlled. Patient on Cardizem, metoprolol and furosemide. (11) Hypomagnesemia Current Visit: Yes Status: Acute Assessment and Plan: Electrolytes being replaced. We will repeat magnesium level I hour post replacement. (12) Hypophosphatemia Current Visit: Yes Status: Acute Assessment and Plan: Most likely due to diuresis. Electrolyte being replaced. DVT Prophylaxis: Patient on Rivaroxaban due to A.Fib. - Summary of Assessment and Plan Summary of Assessment and Plan: Patient needs to remain in the hospital for electrolyte replacement. Severe hypokalemia in the setting of diuresis with IV furosemide. Potential discharge tomorrow. - Time Spent with Patient Total time spent is greater than 50% in coordination of care (as documented) at patient's floor/unit and/or counseling patient: 25 - 35 minutes Plan of Care Discussed with: patient Internal Medicine: Result - Labs CBC & Chem 7: 07/16/18 06:17 07/17/18 04:58 Labs: BMP 07/17/18 04:58 Sodium 140 Potassium 2.6 L Chloride 85 L Carbon Dioxide > 45 H* BUN 11 Creatinine 0.91 Glucose 94 Calcium 8.1 L - ABG Interpretation ABG results: ABG ABG pH 7.55 pH Units (7.32-7.45) H 07/16/18 16:34 ABG pCO2 69 mmHg (35-45) H 07/16/18 16:34 ABG pO2 70 mmHg (85-104) L 07/16/18 16:34 ABG O2 Saturation 95 % (95-98) 07/16/18 16:34 - VTE Documentation of Mechanical Device: Intermittent pneumatic compression device Consult Discharge Plan - Plan Referrals: NONE,PCP [Non-Partnered Physician] - (2) Chronic respiratory failure Qualifiers: Respiratory failure complication: hypoxia and hypercapnia Qualified Code(s): J96.11 - Chronic respiratory failure with hypoxia; J96.12 - Chronic respiratory failure with hypercapnia (3) COPD (chronic obstructive pulmonary disease) Qualifiers: COPD type: unspecified COPD Qualified Code(s): J44.9 - Chronic obstructive pulmonary disease, unspecified (4) Diastolic CHF Qualifiers: Heart failure chronicity: acute on chronic Qualified Code(s): I50.33 - Acute on chronic diastolic (congestive) heart failure (5) Afib Qualifiers: Atrial fibrillation type: chronic Qualified Code(s): I48.2 - Chronic atrial fibrillation (8) Pneumonia Qualifiers: Pneumonia type: due to unspecified organism Laterality: unspecified laterality Lung location: unspecified part of lung Qualified Code(s): J18.9 - Pneumonia, unspecified organism (9) Diabetes Qualifiers: Diabetes mellitus type: type 2 Diabetes mellitus adjunct faculty for medical 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
[2018-07-17 11:22] LABS: ABG Base Excess > 30 mEq/L (-2 to 3); ABG HCO3 60 mEq/L (21-27); ABG Oxygen Saturation 93 % (95-98); ABG PCO2 77 mmHg (35-45); ABG PO2 68 mmHg (85-104); ABG TCO2 63 mEq/L (20-26)
[2018-07-17] MEDS: Insulin LISPRO 300 UNITS/3 ML VIAL SQ SCH ×2 (11:36→16:44)
--- NOTE | 2018-07-17 11:44 | Pulmonology Progress Note ---
<Alfonso Mcmahan M - Last Filed: 07/17/18 15:36> Date of Encounter: 07/17/18 Objective PUL Vital signs: Last Vital Signs Temp 98.9 F 07/17/18 11:33 Pulse 63 07/17/18 11:33 Resp 20 07/17/18 11:33 BP 114/49 07/17/18 11:33 Pulse Ox 95 07/17/18 11:33 Ventilator Settings Ventilator Settings: Ventilator Settings, Last 8 Hours Ventilator Tidal Volume 450 Setting Results - Laboratory Findings CBC and BMP: 07/16/18 06:17 07/17/18 04:58 ABG ABG pH 7.50 pH Units (7.32-7.45) H 07/17/18 11:10 ABG pCO2 77 mmHg (35-45) H* 07/17/18 11:10 ABG pO2 68 mmHg (85-104) L 07/17/18 11:10 ABG O2 Saturation 93 % (95-98) L 07/17/18 11:10 Abnormal lab findings: Abnormal lab results RBC 3.23 M/mcL (3.82-4.97) L 07/16/18 06:17 Hgb 9.0 g/dL (11.5-15.4) L 07/16/18 06:17 Hct 30.9 % (35.3-44.9) L 07/16/18 06:17 MCH 27.9 pg (28.0-33.3) L 07/16/18 06:17 MCHC 29.1 g/dL (31.6-35.5) L 07/16/18 06:17 RDW 16.1 % (11.5-14.5) H 07/16/18 06:17 Band Neutrophils % 6.0 % (0-4) H 07/13/18 08:06 Polychromasia 1+ (Not Present) A 07/15/18 03:20 Hypochromasia Present (Not Present) A 07/15/18 03:20 Anisocytosis 1+ (Not Present) A 07/15/18 03:20 ABG pH 7.50 pH Units (7.32-7.45) H 07/17/18 11:10 ABG pCO2 77 mmHg (35-45) H* 07/17/18 11:10 ABG pO2 68 mmHg (85-104) L 07/17/18 11:10 ABG HCO3 60 mEq/L (21-27) H 07/17/18 11:10 ABG Total CO2 63 mEq/L (20-26) H 07/17/18 11:10 ABG O2 Saturation 93 % (95-98) L 07/17/18 11:10 ABG Base Excess > 30 mEq/L (-2 to 3) H 07/17/18 11:10 Potassium 2.6 mEq/L (3.5-5.1) L 07/17/18 04:58 Chloride 85 mEq/L (98-107) L 07/17/18 04:58 Carbon Dioxide > 45 mEq/L (23-29) H* 07/17/18 04:58 Calcium 8.1 mg/dL (8.6-10.3) L 07/17/18 04:58 Phosphorus 2.2 mg/dL (2.7-4.5) L 07/17/18 04:58 Magnesium 1.4 mg/dL (1.6-2.6) L 07/17/18 04:58 Troponin I 0.07 ng/mL (< 0.04) H* 07/13/18 12:22 B-Natriuretic Peptide 1019 pg/mL (Less than 100) H 07/13/18 08:06 Ur Specific Meigs 1.006 (1.010-1.025) L 07/13/18 15:25 Urine Blood Moderate (Negative) H 07/13/18 15:25 Ur Leukocyte Esterase Trace (Negative) H 07/13/18 15:25 Urine Microscopic RBC 5-15 per hpf (0-3) H 07/13/18 15:25 - Clinical Findings Intake & Output: Intake & Output 07/16/18 07/17/18 07/17/18 23:59 07:59 15:59 Intake Total 302 / 302 0 / 0 0 / 0 Output Total 1250 / 1250 450 / 450 Balance -948 / -948 -450 / -450 0 / 0 Weight 111.8 kg Consult Discharge Plan - Plan Referrals: NONE,PCP [Non-Partnered Physician] - - Attending Attestation I examined this patient and my medical decision-making was reviewed with the Resident Physician. I agree with the documented findings, disposition and treatment plan as described except to the extent set forth below. Patient seen and examined. Labs, radiology, chart personally reviewed. Agree with resident's history and physical, assessment, plan with following comments: DIRECTOR PEOPLESOFT: Patient follows commands, Pulmonary: Acceptable oxygenation and ventilation on noninvasive ventilation and patient wakes up easily. Patient has metabolic alkalosis which is contraction and recommended to hold Lasix with giving care Diamox and also would need and normal saline for the contraction alkalosis which is naturally we will make patient to be hypoventilated which she has already has hypoventilation and she has chronic respiratory acidosis which is being treated with noninvasive ventilation. Patient to recieve Diamox to help. Encourage incentive spirometry Will continue follow up. <Avery Rudolph - Last Filed: 07/17/18 16:19> Date of Encounter: 07/17/18 Time of Encounter: 13:00 Assessment and Plan (1) Acute and chronic respiratory failure with hypercapnia Current Visit: No Status: Acute -likely due to acute CHF exacerbation and a Hcx of COPD. - currently on BiPAP and on NC when she eats, currently on liquid diet - Most recent ABG showed metabolic alkalosis with respiratory compensation pH 7.5, pCO2: 77 - Recommend holding off on diuretics because of contraction alkalosis causing hypo-ventilation. Adding 2 units of Diamox because of hypercarbia. also recommended 1 L saline - continue to monitor (2) Acute on chronic diastolic (congestive) heart failure Current Visit: No Status: Acute -Patient has a history of CHF. Takes lasix 40 mg PO at home. BNP : 1019 on admission -currently on home dose of lasix - on physical exam she is mildy edematous +1, no rales or JVD appreciated - I/Os: 0/-450 since midnight, monitor UOP and electrolytes, Serum Cr : 0.91 (3) COPD (chronic obstructive pulmonary disease) Current Visit: No Status: Chronic -She has a history of COPD, takes albuterol at home. -Does not appear to be COPD exacerbation as patient does not have increase in cough or productive sputum. -Currently on BiPAP, DuoNeb PRN q4h, continue to monitor Qualifiers: COPD type: unspecified COPD Qualified Code(s): J44.9 - Chronic obstructive pulmonary disease, unspecified (4) AIMEE (obstructive sleep apnea) Current Visit: No Status: Chronic -She has a history of obstructive sleep apnea. -She will BiPAP both a.m. and p.m. Subjective Principal diagnosis: acute on chronic diastolic heart failure Interval history: No acute events overnight. Patient continues to be on BiPAP for her acute and chronic respiratory failure with hypoxia and hypercapnia. Patient has been recommended to continue BiPAP both during day and night. Patient continues to be on full liquid diet to prevent aspiration secondary to high pressure on BiPAP. He had nonoliguric MARIFER early during the admission which seems to resolve now. Her most recent ABG showed pH of 7.5 PCO2 of 77. Patient continues to be on 40 mg Lasix for CHF. Objective PUL Vital signs: Last Vital Signs Temp 98.9 F 07/17/18 11:33 Pulse 63 07/17/18 11:33 Resp 20 07/17/18 11:33 BP 114/49 07/17/18 11:33 Pulse Ox 95 07/17/18 11:33 General appearance: no acute distress (on BiPAP) Auscultation: bilateral: wheezes Cardiovascular: irregular rhythm Extremities: no cyanosis, no clubbing (+1 edema ) Ventilator Settings Ventilator Settings: Ventilator Settings, Last 8 Hours Ventilator Tidal Volume 450 Setting Results - Laboratory Findings CBC and BMP: 07/16/18 06:17 07/17/18 04:58 ABG ABG pH 7.50 pH Units (7.32-7.45) H 07/17/18 11:10 ABG pCO2 77 mmHg (35-45) H* 07/17/18 11:10 ABG pO2 68 mmHg (85-104) L 07/17/18 11:10 ABG O2 Saturation 93 % (95-98) L 07/17/18 11:10 Abnormal lab findings: Abnormal lab results RBC 3.23 M/mcL (3.82-4.97) L 07/16/18 06:17 Hgb 9.0 g/dL (11.5-15.4) L 07/16/18 06:17 Hct 30.9 % (35.3-44.9) L 07/16/18 06:17 MCH 27.9 pg (28.0-33.3) L 07/16/18 06:17 MCHC 29.1 g/dL (31.6-35.5) L 07/16/18 06:17 RDW 16.1 % (11.5-14.5) H 07/16/18 06:17 Band Neutrophils % 6.0 % (0-4) H 07/13/18 08:06 Polychromasia 1+ (Not Present) A 07/15/18 03:20 Hypochromasia Present (Not Present) A 07/15/18 03:20 Anisocytosis 1+ (Not Present) A 07/15/18 03:20 ABG pH 7.50 pH Units (7.32-7.45) H 07/17/18 11:10 ABG pCO2 77 mmHg (35-45) H* 07/17/18 11:10 ABG pO2 68 mmHg (85-104) L 07/17/18 11:10 ABG HCO3 60 mEq/L (21-27) H 07/17/18 11:10 ABG Total CO2 63 mEq/L (20-26) H 07/17/18 11:10 ABG O2 Saturation 93 % (95-98) L 07/17/18 11:10 ABG Base Excess > 30 mEq/L (-2 to 3) H 07/17/18 11:10 Potassium 2.6 mEq/L (3.5-5.1) L 07/17/18 04:58 Chloride 85 mEq/L (98-107) L 07/17/18 04:58 Carbon Dioxide > 45 mEq/L (23-29) H* 07/17/18 04:58 POC Glucose 126 mg/dL (70-99) H 07/16/18 20:58 Calcium 8.1 mg/dL (8.6-10.3) L 07/17/18 04:58 Phosphorus 2.2 mg/dL (2.7-4.5) L 07/17/18 04:58 Magnesium 1.4 mg/dL (1.6-2.6) L 07/17/18 04:58 Troponin I 0.07 ng/mL (< 0.04) H* 07/13/18 12:22 B-Natriuretic Peptide 1019 pg/mL (Less than 100) H 07/13/18 08:06 Ur Specific Meigs 1.006 (1.010-1.025) L 07/13/18 15:25 Urine Blood Moderate (Negative) H 07/13/18 15:25 Ur Leukocyte Esterase Trace (Negative) H 07/13/18 15:25 Urine Microscopic RBC 5-15 per hpf (0-3) H 07/13/18 15:25 - Clinical Findings Intake & Output: Intake & Output 07/16/18 07/17/18 07/17/18 23:59 07:59 15:59 Intake Total 302 / 302 0 / 0 0 / 0 Output Total 1250 / 1250 450 / 450 Balance -948 / -948 -450 / -450 0 / 0 Weight 111.8 kg - VTE Documentation of Mechanical Device: Intermittent pneumatic compression device
[2018-07-17] MEDS: Furosemide 20 MG/2 ML VIAL IVP SCH (11:49)
[2018-07-17] MEDS: levoFLOXacin 750 MG TABLET PO SCH (12:28)
[2018-07-17] MEDS: Metoprolol XL (24 HR) Succ 25 MG TAB.ER.24H PO SCH (12:28)
--- NOTE | 2018-07-17 14:31 | Palliative - Consult Note ---
Date of Encounter: 07/17/18 Time of Encounter: 11:45 - Assessment and Plan (1) Acute and chronic respiratory failure with hypercapnia Current Visit: Yes Status: Acute Assessment and plan: ABG hypercapneic. Spoke with Dr. Rudolph with concern for worsening ABG. Pulmonary following; recommend day and night BiPAP usage at this time. Follow recommendations per Pulmonary team. (2) Acute exacerbation of chronic obstructive pulmonary disease (COPD) Current Visit: No Status: Acute Assessment and plan: Management per Pulmonary. Continue Oxygen therapy and duonebs. (3) Acute on chronic diastolic (congestive) heart failure Current Visit: Yes Status: Acute Assessment and plan: BNP decreased from admission. Continue diuresis per primary team. (4) Goals of care, counseling/discussion Current Visit: Yes Status: Acute Assessment and plan: Aroused patient to discuss CODE STATUS and Goals of care. Patient able to participate and verbalized understanding for risks related to CPR and intubation ; desires to be FULL CODE. Is ok with CPR and Intubation. Patient unable to stay awake long enough to have full goals of care discussion, but acknowledges understanding of progressive lung disease. Reports lives home alone and understands this may not be safe moving forward. Called and spoke with Albert Mejía (son) [phone] regarding clinical status and progressive need for further BiPAP usage. Explained risks related to prolonged BiPAP use and difficulty with nutrition, skin break down, and potential for dependence; verbalized understanding. Reports patient has previously been a hospice patient, but after two days son revoked. Reports had previous bad experience in [facility]; desires to discharge to [facility] if medically stable. Discussed potential for requirement of ventilator; son expressed desire to have patient intubated if needed; has been on ventilator before for 2 days and was able to get off. Discussed potential discharge may be impacted by breathing status. Family desires further discussion and clinical update tomorrow at 10 am. Palliative care team will continue to follow. Palliative-CN HPI - Data of Consult Patient: new to practice Consult date: 07/17/18 Requesting Physician: Ish Graham MD Primary Care Provider: Aayush Chase MD - Consult Narrative Palliative Care/Comfort Measures: Palliative care Reason for consult: Chronic respiratory failure, not improving on BiPAP History of present illness: Ms. Cox is a 63 year old female Arrived to [facility] as a transfer from [facility] for worsening respiratory status on 07/12/18. PMH: atrial fibrillation, CHF, COPD, diabetes, fibromyalgia, hyperlipidemia, hypertension, pulmonary hypertension, right diaphragm paralyzed, and right lung underdeveloped. Patient found to be in volume overload with acute on chronic hypercapnic respiratory failure upon admission. Patient admitted and medically managed for: Acute on chronic respiratory failure, CHF exacerbation, Pleural effusion, MARIFER, elevated troponins , Afib, COPD, Phrenic nerve palsy, Leukocytosis, and AMS. Pulmonary team consulted; recommend aggressive diuresis and BiPAP support. ECG completed showing: Sinus rhythm, low QRS voltage, incomplete BBB, and nonspecific STT abnormality. CT of chest without contrast showing: Small left hip effusion with adjacent opacity; Stable small right pleural effusion with right base atelectasis secondary to elevation of the right hemidiaphragm. CT of head without contrast showing: No acute intracranial abnormality. Noted more somnolent with jerking movements new per report of primary team. Palliative care consult for chronic respiratory failure. Patient lying in bed with eyes closed upon arrival for assessment. Per Zoila ALEGRE , has struggled to get patient to arouse. Patient stimulated awake through tactile and verbal stimulation. No family present at bedside. Patient is alert and oriented times 3. Denies pain, anxiety, shortness of breath, nausea and vomiting. Patients BiPAP in place. CC: Ish Graham MD - Time Spent with Patient Time: Total time spent is greater than 50% in coordination of care (as documented) at patient's floor/unit and/or counseling patient: 30 minutes in discussion of goals of care, including discussion with son's to arrange for family meeting to discuss oysterman goals of care. Patient able to participate in CODE STATUS discussion only. 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 Psychiatric history: anxiety, depression - Past Surgical History Surgical History: no surgical history Additional surgical history: Knee scope - Social History Smoking Status: Never smoker Smokeless Tobacco Status: No Alcohol use: none Drug use: none - Family History Father Family Member Ethnicity: Non- Living Status: Hx Family Cardiac Disorders: Yes (NM, HTN) Brother Family Member Ethnicity: Non- Living Status: Still Living Hx Family GI Disorders: Yes (Colon resection) Sister Family Member Ethnicity: Non- Living Status: Hx Family Cardiac Disorders: Yes (CAD, HTN) Hx Family Respiratory Disorders: Yes (COPD) Mother Adopted: No Family Member Ethnicity: Non- Living Status: Hx Family Cardiac Disorders: Yes (CHF) Hx Family Respiratory Disorders: Yes (COPD) Hx Family Cancer: Yes (skin) Hx Family GI Disorders: No Hx Family Endocrine Disorder: Yes (DM) Hx Family Neuromuscular Disorders: No Hx Family Neurologic Disorders: Yes (CVA with rt sided weakness) Hx Family HEENT Disorders: Yes ([place]) Hx Family Autoimmune Disorders: No Medications and Allergies Latanoprost [Xalatan] 1 drop BOTH EYES HS 04/06/16 [History] SitaGLIPtin [Januvia] 100 mg PO DAILY 04/06/16 [History] Brimonidine 0.2% [Alphagan] 1 drop BOTH EYES BID 12/19/17 [History] Propylene Glycol/Peg 400 [Systane Ultra 0.4-0.3% Eye Drp] 1 drop OP QID [History] Ipratropium/Albuterol Neb [Duoneb] 3 ml IH [id number] PRN inhsol 01/18/18 [Rx] Iron Polysaccharide Complex [Ferrex 150] 150 mg PO DAILY capsule 01/18/18 [Rx] Rivaroxaban [Xarelto] 20 mg PO 1700 06/06/18 [History] Simvastatin [Zocor] 40 mg PO HS 06/06/18 [History] Furosemide [Lasix] 40 mg PO DAILY 30 Days #30 tablet 06/15/18 [Rx] 3 Allergy/AdvReac Type Severity Reaction Status Date / Time hydrocodone [From Vicodin] AdvReac Nausea Verified 05/13/18 10:46 Hydromorphone [From Dilaudid] AdvReac Nausea Verified 05/13/18 10:46 ROS unobtainable: due to mental status (Unable to stay awake long enough to participate) Palliative Care-Exam - Constitutional Vitals: Temp Pulse Resp BP Pulse Ox 98.9 F 63 20 114/49 95 07/17/18 11:33 07/17/18 11:33 07/17/18 11:33 07/17/18 11:33 07/17/18 11:33 General appearance: Present: disheveled, no acute distress - Head Head Exam: Present: atraumatic - Eye Eye exam: Present: normal appearance, conjuntiva pink. Absent: periorbital swelling, periorbital tenderness Pupils: Present: normal accommodation, PERRL - ENT ENT exam: Present: mucous membranes dry, normal external ear exam - Expanded ENT Exam Mouth Exam: Absent: drooling - Neck Neck exam: Present: full ROM, normal inspection. Absent: tenderness - Respiratory Respiratory exam: Present: accessory muscle use, decreased breath sounds, rhonchi. Absent: respiratory distress - Cardiovascular Cardiovascular exam: Present: irregular rhythm, +S1, +S2 - Expanded Cardiovascular Exam Peripheral pulses: 2+: Radial (L), Radial (R), Posterior Tibialis (L), Posterior Tibialis (R), Dorsalis Pedis (L) PM, Dorsalis Pedis (R) PM - GI/Abdominal Exam GI/Abdominal exam: Present: normal bowel sounds, soft. Absent: tenderness - Rectal Rectal exam: Present: deferred - Catheter Type: Urethral ([place]) - Extremities Exam Extremities exam: Present: normal inspection, pedal edema. Absent: calf tenderness, tenderness - Back Exam Back exam: Present: full ROM - Neurological Exam Neurological exam: Present: alert (with frequent stimulations.), oriented X3, strengths equal and symetr throughout - Expanded Neurological Exam Coma Scale Eye Opening: To Pain Coma Scale Motor Response: Obeys Commands Coma Scale Verbal Response: Oriented Coma Scale Total: 13 - Psychiatric Psychiatric exam: Present: flat affect - Skin Skin exam: Present: dry, intact, warm Internal Medicine - CN: Reslt - Labs CBC & Chem 7: 07/16/18 06:17 07/17/18 04:58 Labs: BMP 07/17/18 04:58 Sodium 140 Potassium 2.6 L Chloride 85 L Carbon Dioxide > 45 H* BUN 11 Creatinine 0.91 Glucose 94 Calcium 8.1 L - ABG Interpretation ABG results: ABG ABG pH 7.50 pH Units (7.32-7.45) H 07/17/18 11:10 ABG pCO2 77 mmHg (35-45) H* 07/17/18 11:10 ABG pO2 68 mmHg (85-104) L 07/17/18 11:10 ABG O2 Saturation 93 % (95-98) L 07/17/18 11:10 Consult Discharge Plan - Plan Referrals: NONE,PCP [Non-Partnered Physician] - Palliative Quality Palliative Quality: Screen for Code Status: Yes, Screen for Goals of Care: Yes, Screen for Pain: Yes, If Pain Regimen Started, Initiate Bowel Regimen: NA, Screen for Nausea/Vomitting: Yes Code Status: 07/12/18 15:38 Resuscitation Status: Active [RES] Routine Comment: Resuscitation Status: Full Code
[2018-07-17] MEDS ORDERED: 0.9 % Sodium Chloride 1,000 ML IVC ONE (16:07)
[2018-07-17] MEDS: acetaZOLAMIDE 250 MG TABLET PO SCH (16:41)
[2018-07-17] MEDS: *HR* Rivaroxaban 10 MG TABLET PO SCH (16:42)
[2018-07-17] MEDS: Diltiazem CD (24hr) 180 MG CAPSULE PO SCH (18:13)
[2018-07-17 20:46] LABS: BUN/Creatinine Ratio 9 (6-26); Blood Urea Nitrogen 11 mg/dL (8-23); Calcium 9.2 mg/dL (8.6-10.3); Carbon Dioxide > 45 mEq/L (23-29); Chloride 80 mEq/L (98-107); Glucose 125 mg/dL (70-105); Osmolality,Calculated 291 (280-300); Potassium 3.1 mEq/L (3.5-5.1); Sodium 140 mEq/L (136-145); eGFR For Non-African Americans 46 (> 60)
[2018-07-18] MEDS: Ipratropium/Albuterol Neb 3 ML IH SCH ×7 (00:21→23:27)
--- NOTE | 2018-07-18 08:29 | Pulmonology Progress Note ---
<ReesekushalAlfonso santana M - Last Filed: 07/18/18 13:01> Date of Encounter: 07/18/18 Objective PUL Vital signs: Last Vital Signs Temp 98.1 F 07/18/18 07:29 Pulse 59 07/18/18 07:29 Resp 14 07/18/18 11:54 BP 138/48 07/18/18 07:29 Pulse Ox 99 07/18/18 11:54 Results - Laboratory Findings CBC and BMP: 07/18/18 08:33 07/18/18 08:33 ABG ABG pH 7.50 pH Units (7.32-7.45) H 07/17/18 11:10 ABG pCO2 77 mmHg (35-45) H* 07/17/18 11:10 ABG pO2 68 mmHg (85-104) L 07/17/18 11:10 ABG O2 Saturation 93 % (95-98) L 07/17/18 11:10 Abnormal lab findings: Abnormal lab results RBC 3.37 M/mcL (3.82-4.97) L 07/18/18 08:33 Hgb 9.5 g/dL (11.5-15.4) L 07/18/18 08:33 Hct 32.5 % (35.3-44.9) L 07/18/18 08:33 MCHC 29.2 g/dL (31.6-35.5) L 07/18/18 08:33 RDW 16.4 % (11.5-14.5) H 07/18/18 08:33 Band Neutrophils % 6.0 % (0-4) H 07/13/18 08:06 Polychromasia 1+ (Not Present) A 07/15/18 03:20 Hypochromasia Present (Not Present) A 07/15/18 03:20 Anisocytosis 1+ (Not Present) A 07/15/18 03:20 ABG pH 7.50 pH Units (7.32-7.45) H 07/17/18 11:10 ABG pCO2 77 mmHg (35-45) H* 07/17/18 11:10 ABG pO2 68 mmHg (85-104) L 07/17/18 11:10 ABG HCO3 60 mEq/L (21-27) H 07/17/18 11:10 ABG Total CO2 63 mEq/L (20-26) H 07/17/18 11:10 ABG O2 Saturation 93 % (95-98) L 07/17/18 11:10 ABG Base Excess > 30 mEq/L (-2 to 3) H 07/17/18 11:10 Potassium 2.6 mEq/L (3.5-5.1) L 07/18/18 08:33 Chloride 81 mEq/L (98-107) L 07/18/18 08:33 Carbon Dioxide > 45 mEq/L (23-29) H* 07/18/18 08:33 Est GFR ( Amer) 58 (> 60) L 07/18/18 08:33 Est GFR (Non-Af Amer) 48 (> 60) L 07/18/18 08:33 POC Glucose 113 mg/dL (70-99) H 07/18/18 11:49 Phosphorus 2.2 mg/dL (2.7-4.5) L 07/17/18 04:58 Troponin I 0.07 ng/mL (< 0.04) H* 07/13/18 12:22 B-Natriuretic Peptide 1019 pg/mL (Less than 100) H 07/13/18 08:06 Ur Specific [place] 1.006 (1.010-1.025) L 07/13/18 15:25 Urine Blood Moderate (Negative) H 07/13/18 15:25 Ur Leukocyte Esterase Trace (Negative) H 07/13/18 15:25 Urine Microscopic RBC 5-15 per hpf (0-3) H 07/13/18 15:25 - Microbiology Findings Microbiology Findings: Microbiology, Last 48 Hours 07/12/18 15:58 Blood Culture - Final Peripheral Venipuncture No growth. Final report. 07/12/18 15:58 Blood Culture - Final Peripheral Venipuncture No growth. Final report. - Clinical Findings Intake & Output: Intake & Output 07/17/18 07/18/18 07/18/18 23:59 07:59 15:59 Intake Total 1500 / 1500 0 / 0 360 / 360 Output Total 2900 / 2900 1400 / 1400 Balance -1400 / -1400 -1400 / -1400 360 / 360 Consult Discharge Plan - Plan Referrals: NONE,PCP [Non-Partnered Physician] - - Attending Attestation I examined this patient and my medical decision-making was reviewed with the Resident Physician. I agree with the documented findings, disposition and treatment plan as described except to the extent set forth below. Patient seen and examined. Labs, radiology, chart personally reviewed. Agree with resident's history and physical, assessment, plan with following comments: MANAGER PMO: Patient follows commands, Pulmonary: Acceptable oxygenation and ventilation. Patient is tolerating noninvasive ventilation and she is much more awake today and to be careful with diuresis and as long as patient is easily arousable and tolerating noninvasive ventilation, continue monitoring and call for any questions. <Avery Rudolph - Last Filed: 07/18/18 15:54> Date of Encounter: 07/18/18 Time of Encounter: 10:30 Assessment and Plan (1) Acute and chronic respiratory failure with hypercapnia Current Visit: No Status: Acute -likely due to acute CHF exacerbation and a Hcx of COPD. - currently on NC 3.5 L O2 satting at 99% - Patient is currently off diuretics and is on Diamox to help with her contraction alkalosis and hypercarbia. - continue to monitor (2) Acute on chronic diastolic (congestive) heart failure Current Visit: No Status: Acute -Patient has a history of CHF. Takes lasix 40 mg PO at home. BNP : 1019 on admission -currently holding off on the Lasix because of contraction alkalosis and hypoventilation. - on physical exam she is mildy edematous +1, no rales or JVD appreciated - I/Os: 660/1440 since midnight, monitor UOP and electrolytes, Serum Cr : 1.14 (3) COPD (chronic obstructive pulmonary disease) Current Visit: No Status: Chronic -She has a history of COPD, takes albuterol at home. -Does not appear to be COPD exacerbation as patient does not have increase in cough or productive sputum. -Currently on 3.5 L NC, DuoNeb PRN q4h, continue to monitor Qualifiers: COPD type: unspecified COPD Qualified Code(s): J44.9 - Chronic obstructive pulmonary disease, unspecified (4) AIMEE (obstructive sleep apnea) Current Visit: No Status: Chronic -She has a history of obstructive sleep apnea. -She will need BiPAP both a.m. and p.m. Subjective Principal diagnosis: acute on chronic diastolic heart failure Interval history: 07/18 No acute events overnight. Holding off on the Lasix and giving Diamox seems to have the patient because she is currently feeling comfortable, not appear to be hypoventilating as compared to yesterday, satting at 99% on 3.5 L nasal cannula. Patient appears to be no acute distress. She continues to be on BiPAP at night and as needed. 07/17 No acute events overnight. Patient continues to be on BiPAP for her acute and chronic respiratory failure with hypoxia and hypercapnia. Patient has been recommended to continue BiPAP both during day and night. Patient continues to be on full liquid diet to prevent aspiration secondary to high pressure on BiPAP. He had nonoliguric MARIFER early during the admission which seems to resolve now. Her most recent ABG showed pH of 7.5 PCO2 of 77. Patient continues to be on 40 mg Lasix for CHF. Objective PUL Vital signs: Last Vital Signs Temp 98.1 F 07/18/18 07:29 Pulse 59 07/18/18 07:29 Resp 20 07/18/18 07:29 BP 138/48 07/18/18 07:29 Pulse Ox 98 07/18/18 07:29 General appearance: no acute distress Effort: normal Auscultation: bilateral: clear Cardiovascular: irregular rhythm Extremities: no cyanosis, no clubbing, edema (+1) Results - Laboratory Findings CBC and BMP: 07/18/18 08:33 07/18/18 08:33 ABG ABG pH 7.50 pH Units (7.32-7.45) H 07/17/18 11:10 ABG pCO2 77 mmHg (35-45) H* 07/17/18 11:10 ABG pO2 68 mmHg (85-104) L 07/17/18 11:10 ABG O2 Saturation 93 % (95-98) L 07/17/18 11:10 Abnormal lab findings: Abnormal lab results RBC 3.23 M/mcL (3.82-4.97) L 07/16/18 06:17 Hgb 9.0 g/dL (11.5-15.4) L 07/16/18 06:17 Hct 30.9 % (35.3-44.9) L 07/16/18 06:17 MCH 27.9 pg (28.0-33.3) L 07/16/18 06:17 MCHC 29.1 g/dL (31.6-35.5) L 07/16/18 06:17 RDW 16.1 % (11.5-14.5) H 07/16/18 06:17 Band Neutrophils % 6.0 % (0-4) H 07/13/18 08:06 Polychromasia 1+ (Not Present) A 07/15/18 03:20 Hypochromasia Present (Not Present) A 07/15/18 03:20 Anisocytosis 1+ (Not Present) A 07/15/18 03:20 ABG pH 7.50 pH Units (7.32-7.45) H 07/17/18 11:10 ABG pCO2 77 mmHg (35-45) H* 07/17/18 11:10 ABG pO2 68 mmHg (85-104) L 07/17/18 11:10 ABG HCO3 60 mEq/L (21-27) H 07/17/18 11:10 ABG Total CO2 63 mEq/L (20-26) H 07/17/18 11:10 ABG O2 Saturation 93 % (95-98) L 07/17/18 11:10 ABG Base Excess > 30 mEq/L (-2 to 3) H 07/17/18 11:10 Potassium 3.1 mEq/L (3.5-5.1) L 07/17/18 19:36 Chloride 80 mEq/L (98-107) L 07/17/18 19:36 Carbon Dioxide > 45 mEq/L (23-29) H* 07/17/18 19:36 Est GFR ( Amer) 56 (> 60) L 07/17/18 19:36 Est GFR (Non-Af Amer) 46 (> 60) L 07/17/18 19:36 Glucose 125 mg/dL (70-105) H 07/17/18 19:36 POC Glucose 115 mg/dL (70-99) H 07/18/18 07:33 Phosphorus 2.2 mg/dL (2.7-4.5) L 07/17/18 04:58 Magnesium 1.4 mg/dL (1.6-2.6) L 07/17/18 04:58 Troponin I 0.07 ng/mL (< 0.04) H* 07/13/18 12:22 B-Natriuretic Peptide 1019 pg/mL (Less than 100) H 07/13/18 08:06 Ur Specific [place] 1.006 (1.010-1.025) L 07/13/18 15:25 Urine Blood Moderate (Negative) H 07/13/18 15:25 Ur Leukocyte Esterase Trace (Negative) H 07/13/18 15:25 Urine Microscopic RBC 5-15 per hpf (0-3) H 07/13/18 15:25 - Microbiology Findings Microbiology Findings: Microbiology, Last 48 Hours 07/12/18 15:58 Blood Culture - Final Peripheral Venipuncture No growth. Final report. 07/12/18 15:58 Blood Culture - Final Peripheral Venipuncture No growth. Final report. - Clinical Findings Intake & Output: Intake & Output 07/17/18 07/18/18 07/18/18 23:59 07:59 15:59 Intake Total 1500 / 1500 0 / 0 Output Total 2900 / 2900 1400 / 1400 Balance -1400 / -1400 -1400 / -1400 - VTE Documentation of Mechanical Device: Intermittent pneumatic compression device
[2018-07-18] MEDS: levoFLOXacin 750 MG TABLET PO SCH (08:34)
[2018-07-18] MEDS: acetaZOLAMIDE 250 MG TABLET PO SCH (08:34)
[2018-07-18] MEDS: Metoprolol XL (24 HR) Succ 25 MG TAB.ER.24H PO SCH (08:34)
[2018-07-18] MEDS: Insulin LISPRO 300 UNITS/3 ML VIAL SQ SCH ×3 (08:34→17:10)
[2018-07-18] MEDS ORDERED: Furosemide 20 MG/2 ML VIAL IVP SCH (09:00)
[2018-07-18 09:15] LABS: Basophils # 0.1 K/mcL (0.0-0.2); Basophils % 0.6 %; Eosinophils % 0.2 %; Hematocrit 32.5 % (35.3-44.9); Hemoglobin 9.5 g/dL (11.5-15.4); Immature Granulocytes % 1.5 % (0-4); Lymphocytes # 1.7 K/mcL (0.6-4.6); Mean Corpuscular HGB Conc 29.2 g/dL (31.6-35.5); Mean Corpuscular Hemoglobin 28.2 pg (28.0-33.3); Mean Corpuscular Volume 96.4 fL (83.0-100.0); Mean Platelet Volume 11.3 fL (9.4-12.4); Monocytes % 9.4 %; Neutrophils # 7.7 K/mcL (1.6-8.9); Platelet Count 178 K/mcL (140-400); Red Blood Count 3.37 M/mcL (3.82-4.97); Red Cell Distribution Width 16.4 % (11.5-14.5); Segmented Neutrophils % 72.3 %
[2018-07-18 09:39] LABS: BUN/Creatinine Ratio 10 (6-26); Blood Urea Nitrogen 11 mg/dL (8-23); Calcium 9.4 mg/dL (8.6-10.3); Carbon Dioxide > 45 mEq/L (23-29); Chloride 81 mEq/L (98-107); Glucose 102 mg/dL (70-105); Osmolality,Calculated 288 (280-300); Potassium 2.6 mEq/L (3.5-5.1); Sodium 139 mEq/L (136-145); eGFR For Non-African Americans 48 (> 60)
[2018-07-18] MEDS ORDERED: Potassium Chloride 40 MEQ, Lidocaine 1% 2 ML in D5% in Water 500 ML IVPB ONE (10:32)
[2018-07-18 11:07] LABS: Magnesium 1.6 mg/dL (1.6-2.6)
--- NOTE | 2018-07-18 11:44 | Palliative Progress Note ---
Date of Encounter: 07/18/18 Time of Encounter: 10:00 - Assessment and plan (1) Acute and chronic respiratory failure with hypercapnia Current Visit: No Status: Acute Assessment and plan: Pulmonary following; follow recommendations. (2) Acute exacerbation of chronic obstructive pulmonary disease (COPD) Current Visit: No Status: Acute Assessment and plan: Stable. Continue oxygen and duonebs. (3) Acute on chronic diastolic (congestive) heart failure Current Visit: No Status: Acute (4) Goals of care, counseling/discussion Current Visit: No Status: Acute Assessment and plan: 1020: Conducted goals of care discussion with patient and her son. Powerhouse Mechanicrandy Chin present for conversation. Patient acknowledged desire to go to [facility] at discharge. Reports previously a patient of [facility], but feels she entered the program pre-maturely. Desires to go to [facility] as a Rehab patient. PT/OT consult in place. Discussed Advanced Directives. Patient reports she has a Living Will and MPOA in place. Desires to be a FULL CODE; verbalized understanding of risks related to CPR/Intubation. Son in agreement of patient's decisions. - Time Spent With Patient Total time spent is greater than 50% in coordination of care (as documented) at patient's floor/unit and/or counseling patient: - Subjective Interval history: Patient sitting up at bedside wearing nasal cannula upon arrival for assessment. Patient is alert and oriented times 3. Denies pain, nausea, shortness of breath, anxiety, and vomiting. Patient reports son to be at bedside soon. Reports desires to go to [facility] for rehab at discharge and live there afterwards. No family present at bedside upon arrival for assessment. - Constitutional Vitals: Abnormal lab results RBC 3.37 M/mcL (3.82-4.97) L 07/18/18 08:33 Hgb 9.5 g/dL (11.5-15.4) L 07/18/18 08:33 Hct 32.5 % (35.3-44.9) L 07/18/18 08:33 MCHC 29.2 g/dL (31.6-35.5) L 07/18/18 08:33 RDW 16.4 % (11.5-14.5) H 07/18/18 08:33 Band Neutrophils % 6.0 % (0-4) H 07/13/18 08:06 Polychromasia 1+ (Not Present) A 07/15/18 03:20 Hypochromasia Present (Not Present) A 07/15/18 03:20 Anisocytosis 1+ (Not Present) A 07/15/18 03:20 ABG pH 7.50 pH Units (7.32-7.45) H 07/17/18 11:10 ABG pCO2 77 mmHg (35-45) H* 07/17/18 11:10 ABG pO2 68 mmHg (85-104) L 07/17/18 11:10 ABG HCO3 60 mEq/L (21-27) H 07/17/18 11:10 ABG Total CO2 63 mEq/L (20-26) H 07/17/18 11:10 ABG O2 Saturation 93 % (95-98) L 07/17/18 11:10 ABG Base Excess > 30 mEq/L (-2 to 3) H 07/17/18 11:10 Potassium 2.6 mEq/L (3.5-5.1) L 07/18/18 08:33 Chloride 81 mEq/L (98-107) L 07/18/18 08:33 Carbon Dioxide > 45 mEq/L (23-29) H* 07/18/18 08:33 Est GFR ( Amer) 58 (> 60) L 07/18/18 08:33 Est GFR (Non-Af Amer) 48 (> 60) L 07/18/18 08:33 POC Glucose 115 mg/dL (70-99) H 07/18/18 07:33 Phosphorus 2.2 mg/dL (2.7-4.5) L 07/17/18 04:58 Troponin I 0.07 ng/mL (< 0.04) H* 07/13/18 12:22 B-Natriuretic Peptide 1019 pg/mL (Less than 100) H 07/13/18 08:06 Ur Specific [place] 1.006 (1.010-1.025) L 07/13/18 15:25 Urine Blood Moderate (Negative) H 07/13/18 15:25 Ur Leukocyte Esterase Trace (Negative) H 07/13/18 15:25 Urine Microscopic RBC 5-15 per hpf (0-3) H 07/13/18 15:25 General appearance: Present: cooperative, no acute distress - Head Head exam: Present: atraumatic, normal inspection - Eye Eye exam: Present: EOMI, PERRL - ENT ENT exam: Present: mucous membranes moist, normal external ear exam - Neck Neck exam: Present: full ROM, normal inspection - Respiratory Respiratory exam: Present: rhonchi. Absent: accessory muscle use, respiratory distress - Cardiovascular Cardiovascular exam: Present: +S1, +S2 - GI/Abdominal GI/Abdominal exam: Present: normal bowel sounds, soft. Absent: tenderness - Rectal Rectal exam: Present: deferred - Additional comments: Catheter noted to be in place with clear to light yellow urine output. - Extremities Exam Extremities exam: Present: normal inspection. Absent: calf tenderness, pedal edema - Back Exam Back exam: Present: full ROM, normal inspection - Neurological Exam Neurological exam: Present: alert, oriented X3, strengths equal and symetr throughout. Absent: altered - Psychiatric Psychiatric exam: Present: normal affect, normal mood - Skin Skin exam: Present: intact, normal color, warm Palliative Quality Palliative Quality: Screen for Code Status: Yes, Screen for Goals of Care: Yes, Screen for Pain: Yes, If Pain Regimen Started, Initiate Bowel Regimen: NA, Screen for Nausea/Vomitting: Yes Code Status: 07/12/18 15:38 Resuscitation Status: Active [RES] Routine Comment: Resuscitation Status: Full Code - Labs CBC & Chem 7: 07/18/18 08:33 07/18/18 08:33 Labs: Laboratory Results - last 24 hr 07/17/18 07/17/18 07/17/18 07:16 11:36 16:44 WBC RBC Hgb Hct MCV MCH MCHC RDW Plt Count MPV Immature Gran % Seg Neutrophils % Lymphocytes % Monocytes % Eosinophils % Basophils % Neutrophils # Lymphocytes # Monocytes # Eosinophils # Basophils # Sodium Potassium Chloride Carbon Dioxide BUN Creatinine Est GFR ( Amer) Est GFR (Non-Af Amer) BUN/Creatinine Ratio Glucose POC Glucose 98 99 93 Calculated Osmolality Calcium Magnesium 07/17/18 07/17/18 07/18/18 19:36 21:15 07:33 WBC RBC Hgb Hct MCV MCH MCHC RDW Plt Count MPV Immature Gran % Seg Neutrophils % Lymphocytes % Monocytes % Eosinophils % Basophils % Neutrophils # Lymphocytes # Monocytes # Eosinophils # Basophils # Sodium 140 Potassium 3.1 L Chloride 80 L Carbon Dioxide > 45 H* BUN 11 Creatinine 1.18 Est GFR ( Amer) 56 L Est GFR (Non-Af Amer) 46 L BUN/Creatinine Ratio 9 Glucose 125 H POC Glucose 125 H 115 H Calculated Osmolality 291 Calcium 9.2 Magnesium 07/18/18 07/18/18 08:33 08:33 WBC 10.7 D RBC 3.37 L Hgb 9.5 L Hct 32.5 L MCV 96.4 MCH 28.2 MCHC 29.2 L RDW 16.4 H Plt Count 178 MPV 11.3 Immature Gran % 1.5 Seg Neutrophils % 72.3 Lymphocytes % 16.0 Monocytes % 9.4 Eosinophils % 0.2 Basophils % 0.6 Neutrophils # 7.7 Lymphocytes # 1.7 Monocytes # 1.0 Eosinophils # 0.0 Basophils # 0.1 Sodium 139 Potassium 2.6 L Chloride 81 L Carbon Dioxide > 45 H* BUN 11 Creatinine 1.14 Est GFR ( Amer) 58 L Est GFR (Non-Af Amer) 48 L BUN/Creatinine Ratio 10 Glucose 102 POC Glucose Calculated Osmolality 288 Calcium 9.4 Magnesium 1.6 - ABG Interpretation ABG results: ABG ABG pH 7.50 pH Units (7.32-7.45) H 07/17/18 11:10 ABG pCO2 77 mmHg (35-45) H* 07/17/18 11:10 ABG pO2 68 mmHg (85-104) L 07/17/18 11:10 ABG O2 Saturation 93 % (95-98) L 07/17/18 11:10 Consult Discharge Plan - Plan Referrals: NONE,PCP [Non-Partnered Physician] -
--- NOTE | 2018-07-18 15:20 | Internal Med Progress Note ---
Hospitalist Progress Note - Encounter Date of Encounter: 07/18/18 Time of Encounter: 09:00 - Subjective Interval History: Pt has less SOB, said at her baseline now. On NC O2 during day time and BiPAP during night. - Exam Vitals: Temp Pulse Resp BP Pulse Ox 98.1 F 59 14 138/48 99 07/18/18 07:29 07/18/18 07:29 07/18/18 11:54 07/18/18 07:29 07/18/18 11:54 Exam: General: Awake but somnolent, In no distress on a BiPap. jerky involuntary movements seen. Cardiovascular: Irregularly, irregular, Normal S1 & S2, no rubs, murmurs or gallops. JVD unable to be access to due short neck. Lungs: Clear to auscultation b/l, no crackles, rales wheezing. Abdomen: Obese, Soft, non-tender, no rigidity. NABS in all 4 quadrants. Extremities: Mild to moderate edema in the lower ext b/l. Neurological: Somnolent. CN II-XII intact Rest of the physical exam is non contributory - Assessment and Plan (1) Diabetes Current Visit: No Status: Chronic Assessment and Plan: Blood sugar well controlled. Continue lispro sliding scale before meals. (2) Diastolic CHF Current Visit: No Status: Chronic Assessment and Plan: total balance negative a 17.3 L. BW changes from 124 to 111 Kg Hold Lasix now b/o high Bicarbonate level. Strict intake and output Daily weight Water restriction to 1.5 L a day. Patient on metoprolol 25 mg by mouth daily. (3) Afib Current Visit: No Status: Chronic Assessment and Plan: Rate controlled. Patient on diltiazem and metoprolol. Continue current management. Anticoagulated with Rivaroxaban for High CHADSVASC score. (4) COPD (chronic obstructive pulmonary disease) Current Visit: No Status: Chronic Assessment and Plan: No on acute exacerbation. Plan of care as above. 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 (7) Pneumonia Current Visit: No Status: Resolved Assessment and Plan: WBC within normal, afebrile, denies cough. Pneumonia improving. Continue Antibiotics to complete 7 days. (8) Hypertension Current Visit: No Status: Chronic Assessment and Plan: Blood pressure optimally controlled. Patient on Cardizem, metoprolol. (9) Hypokalemia Current Visit: No Status: Acute Assessment and Plan: Potassium of 2.6. Secondary to diuresis. Will give Po and iv supplement. Magnesium being replaced as well. (10) Hypomagnesemia Current Visit: No Status: Acute Assessment and Plan: Electrolytes being replaced. Closely f/u. (11) Chronic respiratory failure Current Visit: No Status: Chronic Assessment and Plan: Pulmonology consult appreciated. Multiplefactorial hypercapnesia: Obecity, COPD , and lasix use. Cont BiPAP during night. - Review pt's chart, she has chronic hypercapnea and high bicarbonate. (12) Hypophosphatemia Current Visit: No Status: Acute Assessment and Plan: Most likely due to diuresis. Electrolyte being replaced. DVT Prophylaxis: Patient on Rivaroxaban due to A.Fib. - Summary of Assessment and Plan Summary of Assessment and Plan: Patient needs to remain in the hospital for electrolyte replacement. Severe hypokalemia in the setting of diuresis with IV furosemide. - Time Spent with Patient Total time spent is greater than 50% in coordination of care (as documented) at patient's floor/unit and/or counseling patient: 30 min 25 - 35 minutes Plan of Care Discussed with: patient Internal Medicine: Result - Labs CBC & Chem 7: 07/18/18 08:33 07/18/18 08:33 Labs: Short CBC 07/18/18 Range/Units 08:33 WBC 10.7 D (4.3-11.1) K/mcL Hgb 9.5 L (11.5-15.4) g/dL Hct 32.5 L (35.3-44.9) % Plt Count 178 (140-400) K/mcL Neutrophils # 7.7 (1.6-8.9) K/mcL BMP 07/17/18 07/18/18 19:36 08:33 Sodium 140 139 Potassium 3.1 L 2.6 L Chloride 80 L 81 L Carbon Dioxide > 45 H* > 45 H* BUN 11 11 Creatinine 1.18 1.14 Glucose 125 H 102 Calcium 9.2 9.4 - ABG Interpretation ABG results: ABG ABG pH 7.50 pH Units (7.32-7.45) H 07/17/18 11:10 ABG pCO2 77 mmHg (35-45) H* 07/17/18 11:10 ABG pO2 68 mmHg (85-104) L 07/17/18 11:10 ABG O2 Saturation 93 % (95-98) L 07/17/18 11:10 - VTE Documentation of Mechanical Device: Intermittent pneumatic compression device Consult Discharge Plan - Plan Referrals: NONE,PCP [Non-Partnered Physician] - (1) Diabetes Qualifiers: Diabetes mellitus type: type 2 Diabetes mellitus fci insulin use: without fci use Diabetes mellitus complication status: with kidney complications Diabetes mellitus complication detail: with chronic kidney disease Chronic kidney disease stage: stage 3 (moderate) Qualified Code(s): E11.22 - Type 2 diabetes mellitus with diabetic chronic kidney disease; N18.3 - Chronic kidney disease, stage 3 (moderate) (2) Diastolic CHF Qualifiers: Heart failure chronicity: acute on chronic Qualified Code(s): I50.33 - Acute on chronic diastolic (congestive) heart failure (3) Afib Qualifiers: Atrial fibrillation type: chronic Qualified Code(s): I48.2 - Chronic atrial fibrillation (4) COPD (chronic obstructive pulmonary disease) Qualifiers: COPD type: unspecified COPD Qualified Code(s): J44.9 - Chronic obstructive pulmonary disease, unspecified (7) Pneumonia Qualifiers: Pneumonia type: due to unspecified organism Laterality: unspecified laterality Lung location: unspecified part of lung Qualified Code(s): J18.9 - Pneumonia, unspecified organism (8) Hypertension Qualifiers: Hypertension type: unspecified Qualified Code(s): I10 - Essential (primary) hypertension (11) Chronic respiratory failure Qualifiers: Respiratory failure complication: hypoxia and hypercapnia Qualified Code(s): J96.11 - Chronic respiratory failure with hypoxia; J96.12 - Chronic respiratory failure with hypercapnia
[2018-07-18] MEDS: Diltiazem CD (24hr) 180 MG CAPSULE PO SCH (17:08)
[2018-07-18] MEDS: *HR* Rivaroxaban 10 MG TABLET PO SCH (17:08)
[2018-07-19] MEDS: Ipratropium/Albuterol Neb 3 ML IH SCH ×4 (03:30→16:44)
[2018-07-19 08:16] LABS: Basophils # 0.1 K/mcL (0.0-0.2); Basophils % 0.5 %; Eosinophils % 0.1 %; Hematocrit 32.1 % (35.3-44.9); Hemoglobin 9.6 g/dL (11.5-15.4); Immature Granulocytes % 1.4 % (0-4); Lymphocytes # 1.3 K/mcL (0.6-4.6); Lymphocytes % 10.9 %; Mean Corpuscular HGB Conc 29.9 g/dL (31.6-35.5); Mean Corpuscular Volume 93.6 fL (83.0-100.0); Mean Platelet Volume 11.8 fL (9.4-12.4); Monocytes # 0.9 K/mcL (0.0-1.3); Monocytes % 7.7 %; Neutrophils # 9.2 K/mcL (1.6-8.9); Platelet Count 185 K/mcL (140-400); Red Blood Count 3.43 M/mcL (3.82-4.97); Red Cell Distribution Width 16.2 % (11.5-14.5); Segmented Neutrophils % 79.4 %
[2018-07-19 08:33] LABS: Calcium 9.6 mg/dL (8.6-10.3); Potassium 2.9 mEq/L (3.5-5.1)
[2018-07-19] MEDS: levoFLOXacin 750 MG TABLET PO SCH (08:58)
[2018-07-19] MEDS: Metoprolol XL (24 HR) Succ 25 MG TAB.ER.24H PO SCH (08:58)
[2018-07-19] MEDS: Insulin LISPRO 300 UNITS/3 ML VIAL SQ SCH ×4 (08:58→23:45)
--- NOTE | 2018-07-19 09:40 | Palliative Progress Note ---
Date of Encounter: 07/19/18 Time of Encounter: 09:15 - Assessment and plan (1) Acute and chronic respiratory failure with hypercapnia Current Visit: No Status: Acute Assessment and plan: Pulmonary following; follow recommendations. Continue BiPAP, Duonebs and oxygen therapy. (2) Acute exacerbation of chronic obstructive pulmonary disease (COPD) Current Visit: No Status: Acute Assessment and plan: Stable. Continue oxygen and duonebs. Oxygen saturation 95%. (3) Acute on chronic diastolic (congestive) heart failure Current Visit: No Status: Acute (4) Goals of care, counseling/discussion Current Visit: No Status: Acute Assessment and plan: Patient understood patient is not accepted into [facility] program; SW waiting on insurance acceptance into [facility]. Discussed Advanced Directives. Patient reports she has a Living Will and MPOA in place. Desires to be a FULL CODE; verbalized understanding of risks related to CPR/Intubation. Goals of care established. Palliative care signing off; please re-consult if needed. - Time Spent With Patient Total time spent is greater than 50% in coordination of care (as documented) at patient's floor/unit and/or counseling patient: 15 minutes. - Subjective Interval history: Patient sitting up at bedside wearing nasal cannula upon arrival for assessment. Patient is alert and oriented times 3. Denies pain, nausea, shortness of breath, anxiety, and vomiting. No family present at bedside upon arrival for assessment. Patient reported understanding that [facility] refused patient; awaiting acceptance from [facility]. Denies needs at this visit. - Constitutional Vitals: Abnormal lab results WBC 11.6 K/mcL (4.3-11.1) H 07/19/18 07:15 RBC 3.43 M/mcL (3.82-4.97) L 07/19/18 07:15 Hgb 9.6 g/dL (11.5-15.4) L 07/19/18 07:15 Hct 32.1 % (35.3-44.9) L 07/19/18 07:15 MCHC 29.9 g/dL (31.6-35.5) L 07/19/18 07:15 RDW 16.2 % (11.5-14.5) H 07/19/18 07:15 Band Neutrophils % 6.0 % (0-4) H 07/13/18 08:06 Neutrophils # 9.2 K/mcL (1.6-8.9) H 07/19/18 07:15 Polychromasia 1+ (Not Present) A 07/15/18 03:20 Hypochromasia Present (Not Present) A 07/15/18 03:20 Anisocytosis 1+ (Not Present) A 07/15/18 03:20 ABG pH 7.50 pH Units (7.32-7.45) H 07/17/18 11:10 ABG pCO2 77 mmHg (35-45) H* 07/17/18 11:10 ABG pO2 68 mmHg (85-104) L 07/17/18 11:10 ABG HCO3 60 mEq/L (21-27) H 07/17/18 11:10 ABG Total CO2 63 mEq/L (20-26) H 07/17/18 11:10 ABG O2 Saturation 93 % (95-98) L 07/17/18 11:10 ABG Base Excess > 30 mEq/L (-2 to 3) H 07/17/18 11:10 Potassium 2.9 mEq/L (3.5-5.1) L 07/19/18 07:15 Chloride 87 mEq/L (98-107) L 07/19/18 07:15 Carbon Dioxide 41 mEq/L (23-29) H* 07/19/18 07:15 Est GFR ( Amer) 56 (> 60) L 07/19/18 07:15 Est GFR (Non-Af Amer) 46 (> 60) L 07/19/18 07:15 Glucose 182 mg/dL (70-105) H 07/19/18 07:15 POC Glucose 153 mg/dL (70-99) H 07/18/18 21:16 Phosphorus 2.2 mg/dL (2.7-4.5) L 07/17/18 04:58 Troponin I 0.07 ng/mL (< 0.04) H* 07/13/18 12:22 B-Natriuretic Peptide 1019 pg/mL (Less than 100) H 07/13/18 08:06 Ur Specific Thayer 1.006 (1.010-1.025) L 07/13/18 15:25 Urine Blood Moderate (Negative) H 07/13/18 15:25 Ur Leukocyte Esterase Trace (Negative) H 07/13/18 15:25 Urine Microscopic RBC 5-15 per hpf (0-3) H 07/13/18 15:25 General appearance: Present: cooperative, morbidly obese, no acute distress - Head Head exam: Present: atraumatic, normal inspection - Eye Eye exam: Present: EOMI. Absent: periorbital tenderness Pupils: Present: normal accommodation, PERRL - ENT ENT exam: Present: mucous membranes moist, normal external ear exam - Neck Neck exam: Present: full ROM, normal inspection - Respiratory Respiratory exam: Present: rhonchi. Absent: accessory muscle use, respiratory distress - Cardiovascular Cardiovascular exam: Present: +S1, +S2 - GI/Abdominal GI/Abdominal exam: Present: normal bowel sounds, soft. Absent: tenderness - Rectal Rectal exam: Present: deferred - Extremities Exam Extremities exam: Present: normal inspection, pedal edema. Absent: calf tenderness - Back Exam Back exam: Present: full ROM - Neurological Exam Neurological exam: Present: alert, oriented X3, strengths equal and symetr throughout. Absent: altered - Psychiatric Psychiatric exam: Present: normal affect, normal mood - Skin Skin exam: Present: intact, warm Palliative Quality Palliative Quality: Screen for Code Status: Yes, Screen for Goals of Care: Yes, Screen for Pain: Yes, If Pain Regimen Started, Initiate Bowel Regimen: NA, Screen for Nausea/Vomitting: Yes Code Status: 07/12/18 15:38 Resuscitation Status: Active [RES] Routine Comment: Resuscitation Status: Full Code - Labs CBC & Chem 7: 07/19/18 07:15 07/19/18 07:15 Labs: Laboratory Results - last 24 hr 07/18/18 07/18/18 07/18/18 08:33 11:49 21:16 WBC RBC Hgb Hct MCV MCH MCHC RDW Plt Count MPV Immature Gran % Seg Neutrophils % Lymphocytes % Monocytes % Eosinophils % Basophils % Neutrophils # Lymphocytes # Monocytes # Eosinophils # Basophils # Sodium 139 Potassium 2.6 L Chloride 81 L Carbon Dioxide > 45 H* BUN 11 Creatinine 1.14 Est GFR ( Amer) 58 L Est GFR (Non-Af Amer) 48 L BUN/Creatinine Ratio 10 Glucose 102 POC Glucose 113 H 153 H Calculated Osmolality 288 Calcium 9.4 Magnesium 1.6 07/19/18 07/19/18 07/19/18 07:15 07:15 07:15 WBC 11.6 H RBC 3.43 L Hgb 9.6 L Hct 32.1 L MCV 93.6 MCH 28.0 MCHC 29.9 L RDW 16.2 H Plt Count 185 MPV 11.8 Immature Gran % 1.4 Seg Neutrophils % 79.4 Lymphocytes % 10.9 Monocytes % 7.7 Eosinophils % 0.1 Basophils % 0.5 Neutrophils # 9.2 H Lymphocytes # 1.3 Monocytes # 0.9 Eosinophils # 0.0 Basophils # 0.1 Sodium 137 Potassium 2.9 L Chloride 87 L Carbon Dioxide 41 H* BUN 15 Creatinine 1.18 Est GFR ( Amer) 56 L Est GFR (Non-Af Amer) 46 L BUN/Creatinine Ratio 13 Glucose 182 H POC Glucose Calculated Osmolality 289 Calcium 9.6 Magnesium 1.9 - ABG Interpretation ABG results: ABG ABG pH 7.50 pH Units (7.32-7.45) H 07/17/18 11:10 ABG pCO2 77 mmHg (35-45) H* 07/17/18 11:10 ABG pO2 68 mmHg (85-104) L 07/17/18 11:10 ABG O2 Saturation 93 % (95-98) L 07/17/18 11:10 Consult Discharge Plan - Plan Referrals: NONE,PCP [Non-Partnered Physician] -
--- NOTE | 2018-07-19 13:46 | Internal Med Progress Note ---
Hospitalist Progress Note - Encounter Date of Encounter: 07/19/18 Time of Encounter: 09:00 - Subjective Interval History: Pt has less SOB, said at her baseline now. Still b/l edema but also her baseline. On NC O2 during day time and BiPAP during night. - Exam Vitals: Temp Pulse Resp BP Pulse Ox 98.1 F 63 18 114/64 97 07/19/18 12:38 07/19/18 12:38 07/19/18 12:38 07/19/18 12:38 07/19/18 12:38 Exam: General: Awake but somnolent, In no distress on a BiPap. jerky involuntary movements seen. Cardiovascular: Irregularly, irregular, Normal S1 & S2, no rubs, murmurs or gallops. JVD unable to be access to due short neck. Lungs: Clear to auscultation b/l, no crackles, rales wheezing. Abdomen: Obese, Soft, non-tender, no rigidity. NABS in all 4 quadrants. Extremities: Mild to moderate edema in the lower ext b/l. Neurological: Somnolent. CN II-XII intact Rest of the physical exam is non contributory - Assessment and Plan (1) Diabetes Current Visit: No Status: Chronic Assessment and Plan: Blood sugar well controlled. Continue lispro sliding scale before meals. (2) Diastolic CHF Current Visit: No Status: Chronic Assessment and Plan: total balance negative a 20 L. BW changes from 124 to 109 Kg Hold Lasix now b/o high Bicarbonate level and hypokalemia. Strict intake and output Daily weight Water restriction to 1.5 L a day. Patient on metoprolol 25 mg by mouth daily. (3) Afib Current Visit: No Status: Chronic Assessment and Plan: Rate controlled. Patient on diltiazem and metoprolol. Continue current management. Anticoagulated with Rivaroxaban for High CHADSVASC score. (4) COPD (chronic obstructive pulmonary disease) Current Visit: No Status: Chronic Assessment and Plan: Not on acute exacerbation. Plan of care as above. 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 (7) Pneumonia Current Visit: No Status: Resolved Assessment and Plan: Afebrile, denies cough. Pneumonia improving. Continue Antibiotics to complete 7 days. (8) Hypertension Current Visit: No Status: Chronic Assessment and Plan: Blood pressure optimally controlled. Patient on Cardizem, metoprolol. (9) Hypokalemia Current Visit: No Status: Acute Assessment and Plan: Potassium of 2.9. Likely secondary to diuresis. Will cont po supplement. Magnesium is WNL after supplementl. (10) Hypomagnesemia Current Visit: No Status: Acute Assessment and Plan: Improved after supplement. (11) Chronic respiratory failure Current Visit: No Status: Chronic Assessment and Plan: Pulmonology consult appreciated. Multiplefactorial hypercapnesia: Obecity, COPD , and lasix use. Cont BiPAP during night. - Review pt's chart, she has chronic hypercapnea and high bicarbonate. - Bicarbonate level trend down. DVT Prophylaxis: Pt is on xarelto - Time Spent with Patient Total time spent is greater than 50% in coordination of care (as documented) at patient's floor/unit and/or counseling patient: 30 min 25 - 35 minutes Plan of Care Discussed with: patient Internal Medicine: Result - Labs CBC & Chem 7: 07/19/18 07:15 07/19/18 07:15 Labs: Short CBC 07/19/18 Range/Units 07:15 WBC 11.6 H (4.3-11.1) K/mcL Hgb 9.6 L (11.5-15.4) g/dL Hct 32.1 L (35.3-44.9) % Plt Count 185 (140-400) K/mcL Neutrophils # 9.2 H (1.6-8.9) K/mcL BMP 07/19/18 07:15 Sodium 137 Potassium 2.9 L Chloride 87 L Carbon Dioxide 41 H* BUN 15 Creatinine 1.18 Glucose 182 H Calcium 9.6 - ABG Interpretation ABG results: ABG ABG pH 7.50 pH Units (7.32-7.45) H 07/17/18 11:10 ABG pCO2 77 mmHg (35-45) H* 07/17/18 11:10 ABG pO2 68 mmHg (85-104) L 07/17/18 11:10 ABG O2 Saturation 93 % (95-98) L 07/17/18 11:10 - VTE Documentation of Mechanical Device: Intermittent pneumatic compression device Consult Discharge Plan - Plan Referrals: NONE,PCP [Non-Partnered Physician] - (1) Diabetes Qualifiers: Diabetes mellitus type: type 2 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: without general production laborer use Diabetes mellitus complication status: with kidney complications Diabetes mellitus complication detail: with chronic kidney disease Chronic kidney disease stage: stage 3 (moderate) Qualified Code(s): E11.22 - Type 2 diabetes mellitus with diabetic chronic kidney disease; N18.3 - Chronic kidney disease, stage 3 (moderate) (2) Diastolic CHF Qualifiers: Heart failure chronicity: acute on chronic Qualified Code(s): I50.33 - Acute on chronic diastolic (congestive) heart failure (3) Afib Qualifiers: Atrial fibrillation type: chronic Qualified Code(s): I48.2 - Chronic atrial fibrillation (4) COPD (chronic obstructive pulmonary disease) Qualifiers: COPD type: unspecified COPD Qualified Code(s): J44.9 - Chronic obstructive pulmonary disease, unspecified (7) Pneumonia Qualifiers: Pneumonia type: due to unspecified organism Laterality: unspecified laterality Lung location: unspecified part of lung Qualified Code(s): J18.9 - Pneumonia, unspecified organism (8) Hypertension Qualifiers: Hypertension type: unspecified Qualified Code(s): I10 - Essential (primary) hypertension (11) Chronic respiratory failure Qualifiers: Respiratory failure complication: hypoxia and hypercapnia Qualified Code(s): J96.11 - Chronic respiratory failure with hypoxia; J96.12 - Chronic respiratory failure with hypercapnia
[2018-07-19] MEDS: Diltiazem CD (24hr) 180 MG CAPSULE PO SCH (17:16)
[2018-07-19] MEDS: *HR* Rivaroxaban 10 MG TABLET PO SCH (17:16)
[2018-07-19] MEDS: traMADol 50 MG TABLET PO PRN (21:07)
[2018-07-20 04:16] LABS: Basophils # 0.1 K/mcL (0.0-0.2); Basophils % 0.5 %; Eosinophils % 0.3 %; Hemoglobin 8.7 g/dL (11.5-15.4); Immature Granulocytes % 1.8 % (0-4); Lymphocytes # 1.4 K/mcL (0.6-4.6); Mean Corpuscular Hemoglobin 27.7 pg (28.0-33.3); Mean Corpuscular Volume 95.5 fL (83.0-100.0); Monocytes % 10.3 %; Neutrophils # 7.1 K/mcL (1.6-8.9); Platelet Count 167 K/mcL (140-400); Red Blood Count 3.14 M/mcL (3.82-4.97); Red Cell Distribution Width 15.9 % (11.5-14.5); Segmented Neutrophils % 73.1 %
[2018-07-20 04:42] LABS: BUN/Creatinine Ratio 13 (6-26); Blood Urea Nitrogen 14 mg/dL (8-23); Calcium 9.1 mg/dL (8.6-10.3); Carbon Dioxide 40 mEq/L (23-29); Chloride 90 mEq/L (98-107); Glucose 121 mg/dL (70-105); Osmolality,Calculated 292 (280-300); Potassium 2.8 mEq/L (3.5-5.1); Sodium 140 mEq/L (136-145); eGFR For Non-African Americans 50 (> 60)
[2018-07-20] MEDS: Ipratropium/Albuterol Neb 3 ML IH SCH ×4 (07:24→20:07)
[2018-07-20] MEDS ORDERED: Potassium Chloride 40 MEQ, Lidocaine 1% 2 ML in D5% in Water 500 ML IVPB ONE (07:28)
[2018-07-20] MEDS: Insulin LISPRO 300 UNITS/3 ML VIAL SQ SCH ×4 (08:12→21:00)
[2018-07-20] MEDS: Metoprolol XL (24 HR) Succ 25 MG TAB.ER.24H PO SCH (08:24)
[2018-07-20 08:37] LABS: Magnesium 1.8 mg/dL (1.6-2.6)
--- NOTE | 2018-07-20 11:55 | Internal Med Progress Note ---
Hospitalist Progress Note - Encounter Date of Encounter: 07/20/18 Time of Encounter: 10:00 - Subjective Interval History: Pt has less SOB, said at her baseline now. Still b/l edema but also her baseline. On NC O2 during day time and BiPAP during night. - Exam Vitals: Temp Pulse Resp BP Pulse Ox 98.4 F 77 18 121/63 100 07/20/18 11:33 07/20/18 11:33 07/20/18 11:33 07/20/18 11:33 07/20/18 11:33 Exam: General: Awake but somnolent, In no distress on a BiPap. jerky involuntary movements seen. Cardiovascular: Irregularly, irregular, Normal S1 & S2, no rubs, murmurs or gallops. JVD unable to be access to due short neck. Lungs: Clear to auscultation b/l, no crackles, rales wheezing. Abdomen: Obese, Soft, non-tender, no rigidity. NABS in all 4 quadrants. Extremities: Mild to moderate edema in the lower ext b/l. Neurological: Somnolent. CN II-XII intact Rest of the physical exam is non contributory - Assessment and Plan (1) Diabetes Current Visit: No Status: Chronic Assessment and Plan: Blood sugar well controlled. Continue lispro sliding scale before meals. (2) Diastolic CHF Current Visit: No Status: Chronic Assessment and Plan: total balance negative a 20 L. BW changes from 124 to 109 Kg Hold Lasix now b/o high Bicarbonate level and hypokalemia. Still has good urine output. Strict intake and output Daily weight Water restriction to 1.5 L a day. Patient on metoprolol 25 mg by mouth daily. (3) Afib Current Visit: No Status: Chronic Assessment and Plan: Rate controlled. Patient on diltiazem and metoprolol. Continue current management. Anticoagulated with Rivaroxaban for High CHADSVASC score. (4) COPD (chronic obstructive pulmonary disease) Current Visit: No Status: Chronic Assessment and Plan: Not on acute exacerbation. Plan of care as above. 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 (7) Pneumonia Current Visit: No Status: Resolved Assessment and Plan: Afebrile, denies cough. Pneumonia improving. Finished Abx course. (8) Hypertension Current Visit: No Status: Chronic Assessment and Plan: Blood pressure optimally controlled. Patient on Cardizem, metoprolol. (9) Hypokalemia Current Visit: No Status: Acute Assessment and Plan: Persist hypokalemia. Pt denies diarrhea. Has good intake. Still considering caused by lasix used. Cont aggressive potassium supplement. (10) Hypomagnesemia Current Visit: No Status: Acute Assessment and Plan: Improved after supplement. (11) Chronic respiratory failure Current Visit: No Status: Chronic Assessment and Plan: Pulmonology consult appreciated. Multiplefactorial hypercapnesia: Obecity, COPD , and lasix use. Cont BiPAP during night. - Review pt's chart, she has chronic hypercapnea and high bicarbonate. - Bicarbonate level trend down. DVT Prophylaxis: Pt is on xarelto - Summary of Assessment and Plan Summary of Assessment and Plan: Patient needs to remain in the hospital for electrolyte replacement. Severe hypokalemia although on aggressive supplement.. - Time Spent with Patient Total time spent is greater than 50% in coordination of care (as documented) at patient's floor/unit and/or counseling patient: 25 - 35 minutes Plan of Care Discussed with: patient Internal Medicine: Result - Labs CBC & Chem 7: 07/20/18 03:53 07/20/18 03:53 Labs: Short CBC 07/20/18 Range/Units 03:53 WBC 9.8 (4.3-11.1) K/mcL Hgb 8.7 L (11.5-15.4) g/dL Hct 30.0 L (35.3-44.9) % Plt Count 167 (140-400) K/mcL Neutrophils # 7.1 (1.6-8.9) K/mcL BMP 07/20/18 03:53 Sodium 140 Potassium 2.8 L Chloride 90 L Carbon Dioxide 40 H* BUN 14 Creatinine 1.11 Glucose 121 H Calcium 9.1 - ABG Interpretation ABG results: ABG ABG pH 7.50 pH Units (7.32-7.45) H 07/17/18 11:10 ABG pCO2 77 mmHg (35-45) H* 07/17/18 11:10 ABG pO2 68 mmHg (85-104) L 07/17/18 11:10 ABG O2 Saturation 93 % (95-98) L 07/17/18 11:10 - VTE Documentation of Mechanical Device: Intermittent pneumatic compression device Consult Discharge Plan - Plan Referrals: NONE,PCP [Non-Partnered Physician] - (1) Diabetes Qualifiers: Diabetes mellitus type: type 2 Diabetes mellitus group home insulin use: without ocean transportation intermediary use Diabetes mellitus complication status: with kidney complications Diabetes mellitus complication detail: with chronic kidney disease Chronic kidney disease stage: stage 3 (moderate) Qualified Code(s): E11.22 - Type 2 diabetes mellitus with diabetic chronic kidney disease; N18.3 - Chronic kidney disease, stage 3 (moderate) (2) Diastolic CHF Qualifiers: Heart failure chronicity: acute on chronic Qualified Code(s): I50.33 - Acute on chronic diastolic (congestive) heart failure (3) Afib Qualifiers: Atrial fibrillation type: chronic Qualified Code(s): I48.2 - Chronic atrial fibrillation (4) COPD (chronic obstructive pulmonary disease) Qualifiers: COPD type: unspecified COPD Qualified Code(s): J44.9 - Chronic obstructive pulmonary disease, unspecified (7) Pneumonia Qualifiers: Pneumonia type: due to unspecified organism Laterality: unspecified laterality Lung location: unspecified part of lung Qualified Code(s): J18.9 - Pneumonia, unspecified organism (8) Hypertension Qualifiers: Hypertension type: unspecified Qualified Code(s): I10 - Essential (primary) hypertension (11) Chronic respiratory failure Qualifiers: Respiratory failure complication: hypoxia and hypercapnia Qualified Code(s): J96.11 - Chronic respiratory failure with hypoxia; J96.12 - Chronic respiratory failure with hypercapnia
[2018-07-20] MEDS: *HR* Rivaroxaban 10 MG TABLET PO SCH (17:14)
[2018-07-20] MEDS: Diltiazem CD (24hr) 180 MG CAPSULE PO SCH (17:14)
[2018-07-20] MEDS: traMADol 50 MG TABLET PO PRN (21:02)
[2018-07-21 04:11] LABS: BUN/Creatinine Ratio 14 (6-26); Blood Urea Nitrogen 15 mg/dL (8-23); Calcium 9.3 mg/dL (8.6-10.3); Carbon Dioxide 40 mEq/L (23-29); Chloride 94 mEq/L (98-107); Glucose 187 mg/dL (70-105); Osmolality,Calculated 294 (280-300); Potassium 3.4 mEq/L (3.5-5.1); Sodium 139 mEq/L (136-145); eGFR For Non-African Americans 52 (> 60)
[2018-07-21 06:53] VITALS: BP 132/60
[2018-07-21] MEDS: Ipratropium/Albuterol Neb 3 ML IH SCH ×2 (07:41→11:38)
[2018-07-21] MEDS: Metoprolol XL (24 HR) Succ 25 MG TAB.ER.24H PO SCH (08:17)
[2018-07-21] MEDS: traMADol 50 MG TABLET PO PRN (08:17)
[2018-07-21] MEDS: Insulin LISPRO 300 UNITS/3 ML VIAL SQ SCH ×2 (08:21→12:28)
--- NOTE | 2018-07-21 10:36 | Discharge Summary ---
- NOTES TO OUTPATIENT PROVIDER Notes to Outpatient Provider: 1. Pt has hypokalemia, most likely due to diuretics use. She is discharged with potassium supplement, please check potassium level in 3 days. Orders not resulted at time of discharge: Pending orders 07/13/18 12:05 Sputum Culture [Culture,Sputum with Gram Stain] [] Routine Date of Encounter: 07/21/18 Time of Encounter: 10:00 - Discharge Diagnosis (1) Diabetes Priority: Secondary Status: Chronic Qualifiers: Diabetes mellitus type: type 2 Diabetes mellitus correction insulin use: without tooth clerk use Diabetes mellitus complication status: with kidney complications Diabetes mellitus complication detail: with chronic kidney disease Chronic kidney disease stage: stage 3 (moderate) Qualified Code(s): E11.22 - Type 2 diabetes mellitus with diabetic chronic kidney disease; N18.3 - Chronic kidney disease, stage 3 (moderate) (2) Diastolic CHF Priority: Primary Status: Chronic Qualifiers: Heart failure chronicity: acute on chronic Qualified Code(s): I50.33 - Acute on chronic diastolic (congestive) heart failure (3) Afib Priority: Secondary Status: Chronic Qualifiers: Atrial fibrillation type: chronic Qualified Code(s): I48.2 - Chronic atrial fibrillation (4) COPD (chronic obstructive pulmonary disease) Priority: Secondary Status: Chronic Qualifiers: COPD type: unspecified COPD Qualified Code(s): J44.9 - Chronic obstructive pulmonary disease, unspecified (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 (6) Morbid obesity with BMI of 50.0-59.9, adult Priority: Secondary Status: Chronic (7) Pneumonia Priority: Primary Status: Resolved Qualifiers: Pneumonia type: due to unspecified organism Laterality: unspecified laterality Lung location: unspecified part of lung Qualified Code(s): J18.9 - Pneumonia, unspecified organism (8) Hypertension Priority: Secondary Status: Chronic Qualifiers: Hypertension type: unspecified Qualified Code(s): I10 - Essential (primary ) hypertension (9) Hypokalemia Priority: Primary Status: Acute (10) Hypomagnesemia Priority: Secondary Status: Acute (11) Chronic respiratory failure Priority: Primary Status: Chronic Qualifiers: Respiratory failure complication: hypoxia and hypercapnia Qualified Code(s) : J96.11 - Chronic respiratory failure with hypoxia; J96.12 - Chronic respiratory failure with hypercapnia Hospital course: Ms. Cox is a 63 year old female admitted for worsen SOB. ABG shows hypoxic and hypercapnic respiratory failure. Pt was treated as pneumonia, COPD exacerbation and CHF exacerbation. After treatment, her condition has improved. Pulmonology consult saw pt and recommendation has been followed. Pt was placed on BiPAP during night and her bicabonate level trend down. Pt has negative 20L fluid balance and less leg swelling. She has finished ABX course for pneumonia and has no further leukocytosis/fever/cough. Pt has hypokalemia which improved after potassium supplement. Pt is ready to discharge to ECF for further management and cont f/u with PCP as outpatient. I have seen and examined pt today. Pt is AAO x3, Mild SOB at her baseline. No cough, in NAD. Working with PT for therapy and pleasant. Vitals stable. Pt is stable to D/C to ECF as placement is approved. - Time Spent with Patient Total time spent providing and/or coordinating discharge services: 40 min Greater than 30 minutes - Discharge Medications Prescriptions: Potassium Chloride 40 meq PO DAILY 15 Days #30 tab.er.prt Home Medications: Latanoprost [Xalatan] 1 drop BOTH EYES HS 04/06/16 [History] SitaGLIPtin [Januvia] 100 mg PO DAILY 04/06/16 [History] Albuterol Sulfate [Albuterol Inhaler] 2 puff IH Q4H PRN 04/14/17 [History] Citalopram Hydrobromide [Citalopram HBr] 40 mg PO HS 04/14/17 [History] Docusate [Colace] 100 mg PO DAILY 04/14/17 [History] Gabapentin [Neurontin] 600 mg PO HS 04/14/17 [History] Brimonidine 0.2% [Alphagan] 1 drop BOTH EYES BID 12/19/17 [History] Propylene Glycol/Peg 400 [Systane Ultra 0.4-0.3% Eye Drp] 1 drop OP QID [History] Ipratropium/Albuterol Neb [Duoneb] 3 ml IH [id number] PRN inhsol 01/18/18 [Rx] Iron Polysaccharide Complex [Ferrex 150] 150 mg PO DAILY capsule 01/18/18 [Rx] Ascorbic Acid [Vitamin C] 500 mg PO 0630 #30 tablet 01/25/18 [Rx] Esomeprazole Magnesium [Nexium] 40 mg PO DAILY 03/29/18 [History] Ibandronate Sodium [Boniva] 150 mg PO QMONTH 03/29/18 [History] Diltiazem CD (24hr) [Cardizem CD] 180 mg PO DAILY #30 cap.er.24h 05/18/18 [Rx] Rivaroxaban [Xarelto] 20 mg PO 1700 06/06/18 [History] Simvastatin [Zocor] 40 mg PO HS 06/06/18 [History] Furosemide [Lasix] 40 mg PO DAILY 30 Days #30 tablet 06/15/18 [Rx] Insulin DETEMIR [Levemir Flextouch] 20 unit SQ HS 07/13/18 [History] Potassium Chloride 40 meq PO DAILY 15 Days #30 tab.er.prt 07/21/18 [Rx] Allergies/Adverse Reactions: 3 Allergy/AdvReac Type Severity Reaction Status Date / Time hydrocodone [From Vicodin] AdvReac Nausea Verified 05/13/18 10:46 Hydromorphone [From Dilaudid] AdvReac Nausea Verified 05/13/18 10:46 Date of admission: 07/12/18 15:17 Primary care physician: Aayush Chase MD Consults: 07/12/18 16:53 Consult to Critical Care [CONS] Routine Consulting Provider: [facility] Reason for Consult: Respiratory failure. Call Completed: Yes 07/14/18 08:35 Consult to Invasive Line Access Team [CONS] Routine Reason for Consult: Per order of Dr. Zafar Line Type: EPIV 07/16/18 12:09 Consult to Physical Therapy [CONS] Routine Comment: Evaluate, develop and implement POC Reason for Consult: generalized weakness. Does patient have active BEDREST order?: No Is patient medically & hemodynamically stable?: Yes 07/16/18 12:10 Consult to Occupational Therapy [CONS] Routine Comment: Evaluate, develop and implement POC Reason for Consult: generalized weakness. Does patient have active BEDREST order?: Yes Is patient medically & hemodynamically stable?: No 07/17/18 11:30 Consult to Palliative Care [CONS] Routine Comment: Consulting Provider: [facility] Reason for Consult: chronic respiratory failure Call Completed: No Discharging clinician: Saleem Carlos Anticipated date of discharge: 07/21/18 - Constitutional Vitals: Temp Pulse Resp BP Pulse Ox 98.2 F 77 18 132/60 98 07/21/18 06:52 07/21/18 06:52 07/21/18 07:41 07/21/18 06:52 07/21/18 07:41 General appearance: Present: A&O X 3, no acute distress, answers questions appropriately Exam: General: Awake Alert, oriented x 3, In no distress on a BiPap. jerky involuntary movements seen. Cardiovascular: Irregularly, irregular, Normal S1 & S2, no rubs, murmurs or gallops. JVD unable to be access to due short neck. Lungs: Clear to auscultation b/l, no crackles, rales wheezing. Abdomen: Obese, Soft, non-tender, no rigidity. NABS in all 4 quadrants. Extremities: Mild to moderate edema in the lower ext b/l. Neurological: CN II-XII intact, no focal deficit. Rest of the physical exam is non contributory - Patient Status Disposition: Transfer SNF Condition: Fair Functional capacity at discharge: uses cane/walker Overall status at discharge: patient is back to baseline - Discharge Instructions Follow Up With: NONE,PCP [Non-Partnered Physician] - - Diet and Activity Activity: as per physical therapy Diet: diabetic diet, low salt diet - VTE Documentation of Mechanical Device: Intermittent pneumatic compression device
--- NOTE | 2018-07-21 10:56 | Physician Discharge Referral ---
ExtendedCare Referral Info Transfer To: [facility] Provider in Charge after Transfer: Other ([facility] physicians) - Diagnosis (1) Diabetes Status: Chronic (2) Diastolic CHF Status: Chronic (3) Afib Status: Chronic (4) COPD (chronic obstructive pulmonary disease) Status: Chronic (5) Phrenic nerve palsy Status: Chronic (6) Morbid obesity with BMI of 50.0-59.9, adult Status: Chronic (7) Pneumonia Status: Resolved (8) Hypertension Status: Chronic (9) Hypokalemia Status: Acute (10) Hypomagnesemia Status: Acute (11) Chronic respiratory failure Status: Chronic - Transfer Medications Prescriptions: Potassium Chloride 40 meq PO DAILY 15 Days #30 tab.er.prt Home Medications: Latanoprost [Xalatan] 1 drop BOTH EYES HS 04/06/16 [History] SitaGLIPtin [Januvia] 100 mg PO DAILY 04/06/16 [History] Albuterol Sulfate [Albuterol Inhaler] 2 puff IH Q4H PRN 04/14/17 [History] Citalopram Hydrobromide [Citalopram HBr] 40 mg PO HS 04/14/17 [History] Docusate [Colace] 100 mg PO DAILY 04/14/17 [History] Gabapentin [Neurontin] 600 mg PO HS 04/14/17 [History] Brimonidine 0.2% [Alphagan] 1 drop BOTH EYES BID 12/19/17 [History] Propylene Glycol/Peg 400 [Systane Ultra 0.4-0.3% Eye Drp] 1 drop OP QID [History] Ipratropium/Albuterol Neb [Duoneb] 3 ml IH [id number] PRN inhsol 01/18/18 [Rx] Iron Polysaccharide Complex [Ferrex 150] 150 mg PO DAILY capsule 01/18/18 [Rx] Ascorbic Acid [Vitamin C] 500 mg PO 0630 #30 tablet 01/25/18 [Rx] Esomeprazole Magnesium [Nexium] 40 mg PO DAILY 03/29/18 [History] Ibandronate Sodium [Boniva] 150 mg PO QMONTH 03/29/18 [History] Diltiazem CD (24hr) [Cardizem CD] 180 mg PO DAILY #30 cap.er.24h 05/18/18 [Rx] Rivaroxaban [Xarelto] 20 mg PO 1700 06/06/18 [History] Simvastatin [Zocor] 40 mg PO HS 06/06/18 [History] Furosemide [Lasix] 40 mg PO DAILY 30 Days #30 tablet 06/15/18 [Rx] Insulin DETEMIR [Levemir Flextouch] 20 unit SQ HS 07/13/18 [History] Potassium Chloride 40 meq PO DAILY 15 Days #30 tab.er.prt 07/21/18 [Rx] Allergies/Adverse Reactions: 3 Allergy/AdvReac Type Severity Reaction Status Date / Time hydrocodone [From Vicodin] AdvReac Nausea Verified 05/13/18 10:46 Hydromorphone [From Dilaudid] AdvReac Nausea Verified 05/13/18 10:46 - Respiratory Orders Oxygen / L per min, Other (BiPAP at night) Smoking Cessation: Smoking cessation has been advised. For more information, call the [place] [employer] Quit Line at 8-486-HUCN-NOW. - Lab Orders Lab Orders: Other (include drug levels w/frequency) (BMP in 3 days to check potassium level.) - Advance Directives Code Status: Full Code - Rehabiliation Orders Rehab Orders: Evaluation for Physical Therapy, Evaluation for Occupational Therapy - Diet Orders No Concentrated Sweets, Cardiac CERTIFICATION: I certify that the transfer of the above named patient to an Extended Care Facility is necessary for the continuing treatment of the diagnosis listed. The above information is true and accurate reflection of patient's current condition. Confidential - Redisclosure prohibited without a patient's written consent.
== END 2018-07-21 14:43 | DRG 291 ==
LOC: SUATTDRO 15:17 → 2NENU 15:17
PROVIDERS: ADMIT Internal Medicine; ATTEND Internal Medicine

== ENCOUNTER 2018-08-13 11:44 | Inpatient (IN) ==
[2018-08-13] MEDS ORDERED: Ipratropium/Albuterol Neb 3 ML IH ONE (11:58)
--- NOTE | 2018-08-13 12:17 | Emergency Department Note ---
Disposition Clinical Impression: Difficulty breathing, Weakness, Acute on chronic respiratory failure with hypoxia and hypercapnia CHF (congestive heart failure) Qualifiers: Heart failure type: unspecified Heart failure chronicity: unspecified Qualified Code(s): I50.9 - Heart failure, unspecified Disposition: Admitted As Inpatient Condition: Fair Time of Disposition: 15:25 General Adult HPI - General Chief complaint: ED Weakness Stated complaint: Weakness Time Seen by Provider: 08/13/18 12:08 Source: patient Limitations: no limitations Nursing Notes Reviewed: Yes Vital Signs Reviewed: Yes - History of Present Illness HPI Narrative: Patient is a 63-year-old female who presents to [facility] ED for one day history of weakness and difficulty breathing. Patient has a recent history of multiple hospital admissions for similar presentations of COPD/CHF exacerbations and was recently released from an F facility approximately 1 week ago from rehabilitation. Patient states today that she felt fatigued and had difficulty in breathing 911 was called by her son. Patient usu ally wears oxygen with BiPAP at night for obstructive sleep apnea. Patient currently admits to difficulty in breathing and headache which she states is typical for her when she has low oxygen saturation, she also admits to dark colored concentrated urine, she denies vision loss, chest pain, nausea/vomiting, blood in her urine or stool, generalized numbness, paresthesias. Onset (ago): day(s) Pain Scale: 0 Consistency: constant, Worsening - Related Data Home Medications Medication Instructions Recorded Confirmed Latanoprost [Xalatan] 1 drop BOTH EYES HS 04/06/16 07/13/18 SitaGLIPtin [Januvia] 100 mg PO DAILY 04/06/16 07/13/18 Albuterol Sulfate [Albuterol 2 puff IH Q4H PRN 04/14/17 07/13/18 Inhaler] Citalopram Hydrobromide 40 mg PO HS 04/14/17 07/13/18 [Citalopram HBr] Docusate [Colace] 100 mg PO DAILY 04/14/17 07/13/18 Gabapentin [Neurontin] 600 mg PO HS 04/14/17 07/13/18 Brimonidine 0.2% [Alphagan] 1 drop BOTH EYES BID 12/19/17 07/13/18 Propylene Glycol/Peg 400 [Systane 1 drop OP QID 12/19/17 07/13/18 Ultra 0.4-0.3% Eye Drp] Esomeprazole Magnesium [Nexium] 40 mg PO DAILY 03/29/18 07/13/18 Ibandronate Sodium [Boniva] 150 mg PO QMONTH 03/29/18 07/13/18 Rivaroxaban [Xarelto] 20 mg PO 1700 06/06/18 07/13/18 Simvastatin [Zocor] 40 mg PO HS 06/06/18 07/13/18 Insulin DETEMIR [Levemir Flextouch] 20 unit SQ HS 07/13/18 07/13/18 Previous Rx's Medication Instructions Recorded Ipratropium/Albuterol Neb [Duoneb] 3 ml IH [id number] PRN inhsol 01/18/18 Iron Polysaccharide Complex 150 mg PO DAILY capsule 01/18/18 [Ferrex 150] Ascorbic Acid [Vitamin C] 500 mg PO 0630 #30 tablet 01/25/18 Diltiazem CD (24hr) [Cardizem CD] 180 mg PO DAILY #30 cap.er.24h 05/18/18 Furosemide [Lasix] 40 mg PO DAILY 30 Days #30 tablet 06/15/18 Potassium Chloride 40 meq PO DAILY 15 Days #30 07/21/18 tab.er.prt Allergies Allergy/AdvReac Type Severity Reaction Status Date / Time hydrocodone [From Vicodin] AdvReac Nausea Verified 05/13/18 10:46 Hydromorphone [From Dilaudid] AdvReac Nausea Verified 05/13/18 10:46 All systems ED: reviewed and negative except as stated. Review of Systems: As Per HPI Constitutional: Reports: weakness Eyes: Denies: vision change Cardiovascular: Denies: chest pain Respiratory: Reports: dyspnea Gastrointestinal: Denies: abdominal pain, nausea, vomiting, melena, hematochezia Genitourinary: Reports: other (Patient was concentrated, discolored urine dark in color.). Denies: dysuria, hematuria Neurological: Reports: headache, weakness. Denies: numbness, paresthesias Endocrine: Reports: fatigue Past Medical History - Past Medical History Medical history: Reports: atrial fibrillation, CHF, COPD, diabetes, fibromyalgia, hyperlipidemia, hypertension Surgical history: Reports: no surgical history Psychiatric history: Reports: anxiety, depression - Social History Smoking Status: Never smoker Smokeless Tobacco Status: No Alcohol use: Reports: none Drug use: Reports: none Physical Exam - General Limitations: no limitations General appearance: alert, in distress - Head Head exam: atraumatic, normocephalic, normal inspection - Eye Eye exam: Present: normal appearance, PERRL, EOMI. Absent: scleral icterus, conjunctival injection - Neck Neck exam: Present: normal inspection, trachea midline - Chest Chest inspection: Present: normal inspection, symmetric chest wall rise - Respiratory Respiratory exam: Present: respiratory distress, wheezes, accessory muscle use, prolonged expiratory phase, other (Decreased lung sounds and respiratory volume). Absent: stridor - Cardiovascular Cardiovascular exam: Present: regular rate, tachycardia, normal heart sounds, +S1, +S2. Absent: JVD, +S3, +S4 - Abdominal Exam Abdominal exam: Present: soft, Non-Tender, normal bowel sounds. Absent: disten tion, guarding, rebound, rigidity - Neurological Exam Neurological exam: Present: alert, oriented X3 - Psychiatric Psychiatric exam: Present: normal affect, normal mood, anxious - Skin Skin exam: Present: warm, dry, intact, normal color. Absent: cyanosis, diaphoresis Course Course Narrative: Patient history, review systems, and physical exam are concerning for cardiopulmonary process, CBC, BMP, BNP, troponin, EKG/old EKG, carboxyhemoglob in, ABG, urinalysis, chest x-ray will be evaluated for potential pathology. DuoNeb 3 will be administered for relief of patient's symptoms. - Reevaluation(s) Reevaluation #1: Patient ABG shows respiratory acidosis with PCO2 of 102. Patient will be started on BiPAP therapy. Time: 12:20 Reevaluation #2: Patient states that she feels much better on BiPAP with significantly less work of breathing. Patient appears more comfortable and is engaged to questioning. Time: 12:47 Vital Signs Temperature 98.4 F 08/13/18 11:49 Pulse Rate 105 08/13/18 11:49 Respiratory Rate 28 08/13/18 11:49 Blood Pressure 148/83 08/13/18 11:49 O2 Sat by Pulse Oximetry 95 08/13/18 11:49 Temperature 98.4 F 08/13/18 11:49 Pulse Rate 93 08/13/18 14:09 Respiratory Rate 24 08/13/18 14:09 Blood Pressure 136/75 08/13/18 14:09 O2 Sat by Pulse Oximetry 97 08/13/18 14:09 Oxygen Delivery Oxygen Delivery Bipap Medical Decision Making - [facility] Narrative Medical decision making narrative: Patient shoes moderate improvement on BiPAP therapy with PCO2 decreasing from 103-82. Patient seems to be more alert and oriented although very tired stating that she has not slept well for several days given her current symptoms. She is easily arousable and engaged to conversation and questioning. Spoke with patient and her son regarding recommendations for hospital admission for for further evaluation and therapy, patient and family were in agreement with this plan. Hospitalist accepts admission. - Lab Data Lab results reviewed: Yes I reviewed the patient's lab results. Result diagrams: 08/13/18 12:12 08/13/18 12:12 Lab Results 08/13/18 08/13/18 08/13/18 Range/Units 12:12 12:12 12:12 WBC 12.4 H (4.3-11.1) K/mcL RBC 3.57 L (3.82-4.97) M/mcL Hgb 10.0 L (11.5-15.4) g/dL Hct 34.4 L (35.3-44.9) % MCV 96.4 (83.0-100.0) fL MCH 28.0 (28.0-33.3) pg MCHC 29.1 L (31.6-35.5) g/dL RDW 15.4 H (11.5-14.5) % Plt Count 190 (140-400) K/mcL MPV 11.6 (9.4-12.4) fL Immature Gran % 0.5 (0-4) % Seg Neutrophils % 71.0 % Lymphocytes % 14.6 % Monocytes % 13.5 % Eosinophils % 0.0 % Basophils % 0.4 % Neutrophils # 8.8 (1.6-8.9) K/mcL Lymphocytes # 1.8 (0.6-4.6) K/mcL Monocytes # 1.7 H (0.0-1.3) K/mcL Eosinophils # 0.0 (0.0-0.6) K/mcL Basophils # 0.1 (0.0-0.2) K/mcL PT (9.4-12.1) Seconds INR APTT (26.0-36.0) Seconds ABG pH (7.32-7.45) pH Units ABG pCO2 (35-45) mmHg ABG pO2 (85-104) mmHg ABG HCO3 (21-27) mEq/L ABG Total CO2 (20-26) mEq/L ABG O2 Saturation (95-98) % ABG Base Excess (-2 to 3) mEq/L Carboxyhemoglobin (0-5) % O2 Delivery Device Inspired O2 (1-15=lpm iv70-145=%) PEEP cm H2O Pressure Support cm H2O Sodium 138 (136-145) mEq/L Potassium 4.3 (3.5-5.1) mEq/L Chloride 91 L (98-107) mEq/L Carbon Dioxide 39 H (23-29) mEq/L BUN 25 H (8-23) mg/dL Creatinine 1.26 H (0.60-1.20) mg/dL Est GFR ( Amer) 52 L (> 60) Est GFR (Non-Af Amer) 43 L (> 60) BUN/Creatinine Ratio 20 (6-26) Glucose 174 H (70-105) mg/dL Calculated Osmolality 295 (280-300) Lactic Acid (0.5-2.2) mmol/L Calcium 9.3 (8.6-10.3) mg/dL Phosphorus (2.7-4.5) mg/dL Magnesium (1.6-2.6) mg/dL Total Bilirubin (0.3-1.0) mg/dL Direct Bilirubin (0.0-0.2) mg/dL Indirect Bilirubin (0.0-1.2) mg/dL AST (13-39) Units/L ALT (7-52) Units/L Alkaline Phosphatase (34-104) Units/L Troponin I 0.03 (< 0.04) ng/mL B-Natriuretic Peptide 538 H (Less than 100) pg/mL Serum Total Protein (6.4-8.9) g/dL Albumin (3.5-5.7) g/dL Globulin (2.4-3.5) g/dL Albumin/Globulin Ratio (1.1-2.2) Lipase (11-82) Units/L Urine Color (Yellow) Urine Clarity (Clear) Urine pH (5.0-8.0) pH Units Ur Specific Bayard (1.010-1.025) Urine Protein (Neg-Trace) mg/dL Urine Glucose (UA) (Normal) mg/dL Urine Ketones (Negative) mg/dL Urine Blood (Negative) Urine Nitrite (Negative) Urine Bilirubin (Negative) Urine Urobilinogen (Normal) mg/dL Ur Leukocyte Esterase (Negative) Ur Culture Indicated? (NO) 08/13/18 08/13/18 08/13/18 Range/Units 12:25 12:26 12:26 WBC (4.3-11.1) K/mcL RBC (3.82-4.97) M/mcL Hgb (11.5-15.4) g/dL Hct (35.3-44.9) % MCV (83.0-100.0) fL MCH (28.0-33.3) pg MCHC (31.6-35.5) g/dL RDW (11.5-14.5) % Plt Count (140-400) K/mcL MPV (9.4-12.4) fL Immature Gran % (0-4) % Seg Neutrophils % % Lymphocytes % % Monocytes % % Eosinophils % % Basophils % % Neutrophils # (1.6-8.9) K/mcL Lymphocytes # (0.6-4.6) K/mcL Monocytes # (0.0-1.3) K/mcL Eosinophils # (0.0-0.6) K/mcL Basophils # (0.0-0.2) K/mcL PT 13.2 H (9.4-12.1) Seconds INR 1.2 APTT 30.7 (26.0-36.0) Seconds ABG pH (7.32-7.45) pH Units ABG pCO2 (35-45) mmHg ABG pO2 (85-104) mmHg ABG HCO3 (21-27) mEq/L ABG Total CO2 (20-26) mEq/L ABG O2 Saturation (95-98) % ABG Base Excess (-2 to 3) mEq/L Carboxyhemoglobin 5.3 H (0-5) % O2 Delivery Device Inspired O2 (1-15=lpm ub22-850=%) PEEP cm H2O Pressure Support cm H2O Sodium (136-145) mEq/L Potassium (3.5-5.1) mEq/L Chloride (98-107) mEq/L Carbon Dioxide (23-29) mEq/L BUN (8-23) mg/dL Creatinine (0.60-1.20) mg/dL Est GFR ( Amer) (> 60) Est GFR (Non-Af Amer) (> 60) BUN/Creatinine Ratio (6-26) Glucose (70-105) mg/dL Calculated Osmolality (280-300) Lactic Acid (0.5-2.2) mmol/L Calcium (8.6-10.3) mg/dL Phosphorus 3.9 (2.7-4.5) mg/dL Magnesium 1.8 (1.6-2.6) mg/dL Total Bilirubin 0.9 (0.3-1.0) mg/dL Direct Bilirubin 0.4 H (0.0-0.2) mg/dL Indirect Bilirubin 0.5 (0.0-1.2) mg/dL AST 10 L (13-39) Units/L ALT 4 L (7-52) Units/L Alkaline Phosphatase 75 (34-104) Units/L Troponin I (< 0.04) ng/mL B-Natriuretic Peptide (Less than 100) pg/mL Serum Total Protein 6.8 (6.4-8.9) g/dL Albumin 3.2 L (3.5-5.7) g/dL Globulin 3.6 H (2.4-3.5) g/dL Albumin/Globulin Ratio 0.9 L (1.1-2.2) Lipase 7 L (11-82) Units/L Urine Color (Yellow) Urine Clarity (Clear) Urine pH (5.0-8.0) pH Units Ur Specific Bayard (1.010-1.025) Urine Protein (Neg-Trace) mg/dL Urine Glucose (UA) (Normal) mg/dL Urine Ketones (Negative) mg/dL Urine Blood (Negative) Urine Nitrite (Negative) Urine Bilirubin (Negative) Urine Urobilinogen (Normal) mg/dL Ur Leukocyte Esterase (Negative) Ur Culture Indicated? (NO) 08/13/18 08/13/18 08/13/18 Range/Units 13:15 13:17 13:41 WBC (4.3-11.1) K/mcL RBC (3.82-4.97) M/mcL Hgb (11.5-15.4) g/dL Hct (35.3-44.9) % MCV (83.0-100.0) fL MCH (28.0-33.3) pg MCHC (31.6-35.5) g/dL RDW (11.5-14.5) % Plt Count (140-400) K/mcL MPV (9.4-12.4) fL Immature Gran % (0-4) % Seg Neutrophils % % Lymphocytes % % Monocytes % % Eosinophils % % Basophils % % Neutrophils # (1.6-8.9) K/mcL Lymphocytes # (0.6-4.6) K/mcL Monocytes # (0.0-1.3) K/mcL Eosinophils # (0.0-0.6) K/mcL Basophils # (0.0-0.2) K/mcL PT (9.4-12.1) Seconds INR APTT (26.0-36.0) Seconds ABG pH 7.26 L (7.32-7.45) pH Units ABG pCO2 103 H* (35-45) mmHg ABG pO2 125 H (85-104) mmHg ABG HCO3 46 H (21-27) mEq/L ABG Total CO2 49 H (20-26) mEq/L ABG O2 Saturation 98 (95-98) % ABG Base Excess 14 H (-2 to 3) mEq/L Carboxyhemoglobin (0-5) % O2 Delivery Device Cannula Inspired O2 32.0 (1-15=lpm [id number]=%) PEEP cm H2O Pressure Support cm H2O Sodium (136-145) mEq/L Potassium (3.5-5.1) mEq/L Chloride (98-107) mEq/L Carbon Dioxide (23-29) mEq/L BUN (8-23) mg/dL Creatinine (0.60-1.20) mg/dL Est GFR ( Amer) (> 60) Est GFR (Non-Af Amer) (> 60) BUN/Creatinine Ratio (6-26) Glucose (70-105) mg/dL Calculated Osmolality (280-300) Lactic Acid 0.5 (0.5-2.2) mmol/L Calcium (8.6-10.3) mg/dL Phosphorus (2.7-4.5) mg/dL Magnesium (1.6-2.6) mg/dL Total Bilirubin (0.3-1.0) mg/dL Direct Bilirubin (0.0-0.2) mg/dL Indirect Bilirubin (0.0-1.2) mg/dL AST (13-39) Units/L ALT (7-52) Units/L Alkaline Phosphatase (34-104) Units/L Troponin I (< 0.04) ng/mL B-Natriuretic Peptide (Less than 100) pg/mL Serum Total Protein (6.4-8.9) g/dL Albumin (3.5-5.7) g/dL Globulin (2.4-3.5) g/dL Albumin/Globulin Ratio (1.1-2.2) Lipase (11-82) Units/L Urine Color Yellow (Yellow) Urine Clarity Clear (Clear) Urine pH 5.5 (5.0-8.0) pH Units Ur Specific Bayard 1.017 (1.010-1.025) Urine Protein Negative (Neg-Trace) mg/dL Urine Glucose (UA) Normal (Normal) mg/dL Urine Ketones Negative (Negative) mg/dL Urine Blood Negative (Negative) Urine Nitrite Negative (Negative) Urine Bilirubin Negative (Negative) Urine Urobilinogen Normal (Normal) mg/dL Ur Leukocyte Esterase Negative (Negative) Ur Culture Indicated? NO (NO) 08/13/18 Range/Units 14:13 WBC (4.3-11.1) K/mcL RBC (3.82-4.97) M/mcL Hgb (11.5-15.4) g/dL Hct (35.3-44.9) % MCV (83.0-100.0) fL MCH (28.0-33.3) pg MCHC (31.6-35.5) g/dL RDW (11.5-14.5) % Plt Count (140-400) K/mcL MPV (9.4-12.4) fL Immature Gran % (0-4) % Seg Neutrophils % % Lymphocytes % % Monocytes % % Eosinophils % % Basophils % % Neutrophils # (1.6-8.9) K/mcL Lymphocytes # (0.6-4.6) K/mcL Monocytes # (0.0-1.3) K/mcL Eosinophils # (0.0-0.6) K/mcL Basophils # (0.0-0.2) K/mcL PT (9.4-12.1) Seconds INR APTT (26.0-36.0) Seconds ABG pH 7.34 (7.32-7.45) pH Units ABG pCO2 82 H* D (35-45) mmHg ABG pO2 63 L D (85-104) mmHg ABG HCO3 44 H (21-27) mEq/L ABG Total CO2 47 H (20-26) mEq/L ABG O2 Saturation 88 L (95-98) % ABG Base Excess 15 H (-2 to 3) mEq/L Carboxyhemoglobin (0-5) % O2 Delivery Device BiPAP Inspired O2 30.0 (1-15=lpm [id number]=%) PEEP 6 cm H2O Pressure Support 16 cm H2O Sodium (136-145) mEq/L Potassium (3.5-5.1) mEq/L Chloride (98-107) mEq/L Carbon Dioxide (23-29) mEq/L BUN (8-23) mg/dL Creatinine (0.60-1.20) mg/dL Est GFR ( Amer) (> 60) Est GFR (Non-Af Amer) (> 60) BUN/Creatinine Ratio (6-26) Glucose (70-105) mg/dL Calculated Osmolality (280-300) Lactic Acid (0.5-2.2) mmol/L Calcium (8.6-10.3) mg/dL Phosphorus (2.7-4.5) mg/dL Magnesium (1.6-2.6) mg/dL Total Bilirubin (0.3-1.0) mg/dL Direct Bilirubin (0.0-0.2) mg/dL Indirect Bilirubin (0.0-1.2) mg/dL AST (13-39) Units/L ALT (7-52) Units/L Alkaline Phosphatase (34-104) Units/L Troponin I (< 0.04) ng/mL B-Natriuretic Peptide (Less than 100) pg/mL Serum Total Protein (6.4-8.9) g/dL Albumin (3.5-5.7) g/dL Globulin (2.4-3.5) g/dL Albumin/Globulin Ratio (1.1-2.2) Lipase (11-82) Units/L Urine Color (Yellow) Urine Clarity (Clear) Urine pH (5.0-8.0) pH Units Ur Specific Bayard (1.010-1.025) Urine Protein (Neg-Trace) mg/dL Urine Glucose (UA) (Normal) mg/dL Urine Ketones (Negative) mg/dL Urine Blood (Negative) Urine Nitrite (Negative) Urine Bilirubin (Negative) Urine Urobilinogen (Normal) mg/dL Ur Leukocyte Esterase (Negative) Ur Culture Indicated? (NO) - Radiology Data Radiology results reviewed: Yes I reviewed the patient's radiology results. Chest X-Ray 08/13/18 11:58 IMPRESSION: No acute findings. Low lung volumes with chronic left basilar disease. D/ / James Garcia MD / James Garcia MD Interpreting Provider: James Garcia MD - EKG Data EKG #1 EKG attestation: Yes I reviewed and interpreted this EKG. EKG results narrative: Patient EKG shows a sinus tachycardia with first-degree AV block with a rate of 101 bpm, normal axis and rhythm. FL interval shows a first-degree AV block at 212 ms, QTC duration 110 ms, QT/QTc intervals 367/476 ms respectively. Initial EKG is noted to be of poor quality with repeat EKG also showing significant eder fact. There are slight ST elevations of less than 1 mm noted in the inferior and lateral leads with no reciprocal depressions. There are no abnormal T-wave inversions, pathologic Q waves, or any other signs of acute ischemic change. This EKG is generally consistent with previous EKG performed on 07/13/2018. Critical Care Time Critical Care Time: Yes Total Critical Care Time: 35 Attestation: Critical care time 35 minutes. Attestation Statement - Attestation Attestation: Patient was seen with resident physician. I reviewed the history, physical, assessment and plan, and agree with the findings. I also personally evaluated t his patient and had [id number] time with this patient. 63-year-old female presents with several day history of worsening shortness of breath. Patient is a history of CHF COPD and hospitalizations for both of these conditions. Comes in now again with several day history of shortness of breath decrease oxygen levels and associated headaches. Patient says she gets this frequently. She is on home O2 and BiPAP at night. No fevers or chills no cough or sputum production. No nausea vomiting or diarrhea. She did note that she had not been getting her Lasix as she typically does at the care facility and she recently just started back on it, this is resulted in increased swelling of the lower extremities bilaterally. Review systems as above remainder negative. Physical exam vital signs are okay except for her tachypnea. ENT is unremarkable. Heart regular rhythm and rate. Lungs markedly increased work of breathing with poor air exchange and minimal wheezing. Lungs sound the same bilaterally. Abdomen is soft and nontender. Extremities show increased swelling in the bilateral lower extremities with pitting edema. Neurologically she is alert and moves all extremities does not appear to have focal deficits. Skin no RASHES. Psych normal. ED course. We will aggressively treat the patient for COPD as well as CHF. It is unclear what she has initially. Additionally she is failed outpatient management multiple times and though her x-ray was read as some airspace disease we were unsure if this was related to pneumonia ear infections which checked a fluid gave her dose of antibiotics. Patient was placed on BiPAP shortly after arrival and this improved her breathing pretty dramatically. Her work of breathing was markedly improved. She is also given 3 DuoNeb's. Patient improved but not to the point where she was able to be discharge. Patient did have 2 ABGs. The first was pre-BiPAP, and the second was post-BiPAP and it showed improvement in the patient's CO2 levels. She tolerated the BiPAP well and her work of breathing decreased. We will admit to the hospital service for further evaluation and treatment. Agree with resident physician assessment and plan. Critical care time 35 minutes.
[2018-08-13 12:23] LABS: ABG Base Excess 14 mEq/L (-2 to 3); ABG HCO3 46 mEq/L (21-27); ABG Oxygen Saturation 98 % (95-98); ABG PCO2 103 mmHg (35-45); ABG PH 7.26 pH Units (7.32-7.45); ABG PO2 125 mmHg (85-104); ABG TCO2 49 mEq/L (20-26)
[2018-08-13 12:25] LABS: Basophils # 0.1 K/mcL (0.0-0.2); Basophils % 0.4 %; Hematocrit 34.4 % (35.3-44.9); Immature Granulocytes % 0.5 % (0-4); Lymphocytes # 1.8 K/mcL (0.6-4.6); Lymphocytes % 14.6 %; Mean Corpuscular HGB Conc 29.1 g/dL (31.6-35.5); Mean Corpuscular Volume 96.4 fL (83.0-100.0); Mean Platelet Volume 11.6 fL (9.4-12.4); Monocytes # 1.7 K/mcL (0.0-1.3); Monocytes % 13.5 %; Neutrophils # 8.8 K/mcL (1.6-8.9); Platelet Count 190 K/mcL (140-400); Red Blood Count 3.57 M/mcL (3.82-4.97); Red Cell Distribution Width 15.4 % (11.5-14.5)
[2018-08-13] MEDS ORDERED: Azithromycin 500 MG in D5% in Water 250 ML IVPB ONE (12:26)
[2018-08-13] MEDS ORDERED: cefTRIAXone 1,000 MG in Water for inj. (sterile) 20 ML 10 ML IVP ONE (12:26)
[2018-08-13] MEDS ORDERED: Furosemide 40 MG/4 ML VIAL IVP ONE (12:30)
[2018-08-13] MEDS ORDERED: 0.9 % Sodium Chloride 1,000 ML IVC SCH (12:30)
[2018-08-13 12:45] LABS: Calcium 9.3 mg/dL (8.6-10.3); Potassium 4.3 mEq/L (3.5-5.1)
[2018-08-13 12:46] LABS: Troponin I 0.03 ng/mL (< 0.04)
[2018-08-13 13:45] LABS: INR 1.2; Prothrombin Time 13.2 Seconds (9.4-12.1)
[2018-08-13 13:48] LABS: Activated Partial Thrombo Time 30.7 Seconds (26.0-36.0)
[2018-08-13 13:50] LABS: Bilirubin,Urine Negative (Negative); Blood,Urine Negative (Negative); Clarity,Urine Clear (Clear); Color,Urine Yellow (Yellow); Glucose,Urine (UA) Normal (Normal); Ketones,Urine Negative (Negative); Leukocyte Esterase,Urine Negative (Negative); Nitrite,Urine Negative (Negative); PH,Urine 5.5 pH Units (5.0-8.0); Protein,Urine Negative (Neg-Trace); Specific Gravity,Urine 1.017 (1.010-1.025); Urobilinogen,Urine Normal (Normal)
[2018-08-13 13:54] LABS: Albumin 3.2 g/dL (3.5-5.7); Albumin/Globulin Ratio 0.9 (1.1-2.2); Bilirubin,Direct 0.4 mg/dL (0.0-0.2); Bilirubin,Indirect 0.5 mg/dL (0.0-1.2); Bilirubin,Total 0.9 mg/dL (0.3-1.0); Globulin 3.6 g/dL (2.4-3.5); Magnesium 1.8 mg/dL (1.6-2.6); Phosphorous 3.9 mg/dL (2.7-4.5); Total Protein 6.8 g/dL (6.4-8.9)
[2018-08-13 14:18] LABS: ABG Base Excess 15 mEq/L (-2 to 3); ABG HCO3 44 mEq/L (21-27); ABG Oxygen Saturation 88 % (95-98); ABG PCO2 82 mmHg (35-45); ABG PH 7.34 pH Units (7.32-7.45); ABG PO2 63 mmHg (85-104); ABG TCO2 47 mEq/L (20-26); Blood Gas PEEP 6 cm H2O; Blood Gas Pressure Support 16 cm H2O
[2018-08-13] MEDS ORDERED: Naloxone 0.4 MG/ML INJ IVP PRN (15:13)
[2018-08-13] MEDS ORDERED: *HR* Dextrose 50 % in Water (Syg) 50 ML SYRINGE IVP PRN (15:18)
[2018-08-13] MEDS ORDERED: Dextrose Gel 15 GM/37.5 ML TUBE PO PRN ×2 (15:18)
[2018-08-13] MEDS ORDERED: D5% in Water 1,000 ML IVC PRN (15:18)
[2018-08-13] MEDS: Ipratropium/Albuterol Neb 3 ML IH SCH ×3 (15:38→21:41)
--- NOTE | 2018-08-13 15:53 | Internal Med History&Physical ---
Date of Encounter: 08/13/18 Time of Encounter: 15:47 Internal Medicine - H&P: HPI Chief complaint: lethargy and shortness of breath. Plans for Post Hospital Care: Home History of present illness: Ms. Cox is a 63 year old female PMH of Atrial fibrillation, CHF, COPD, diabetes, fibromyalgia, hyperlipidemia, hypertension and phrenic nerve palsy. Patient was brought to the ED from home due to lethargy and shortness of breath. As per patient's son, she was discharge home from rehab about 1 week ago, and he reports that she was doing well. But since Tuesday he has noticed that her respiratory status has been deteriorating and it has become more labored. He reports that for the past couple of days she has become sluggish/lethargic, reports that she also has been having visual hallucination for the past 2 days. Today they decided to called EMS because the patient was very somnolent and they report that she was out for about 2 hours were she was barely arousable. They denied any fever/chills, abdominal pain or chest pain. In the ED patient found to be in Hypercapnic respiratory failure with a POC2 >90. Patient placed on a BiPaP and the medicine service called for admission. They report the patient has been using the BiPap machine every night, but do not if she has been taking her medications correctly. 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 Psychiatric history: anxiety, depression - Past Surgical History Surgical History: no surgical history Additional surgical history: Knee scope - Social History Smoking Status: Never smoker Smokeless Tobacco Status: No Alcohol use: none Drug use: none - Family History Father Family Member Ethnicity: Non- Living Status: Hx Family Cardiac Disorders: Yes (VA, HTN) Brother Family Member Ethnicity: Non- Living Status: Still Living Hx Family GI Disorders: Yes (Colon resection) Sister Family Member Ethnicity: Non- Living Status: Hx Family Cardiac Disorders: Yes (CAD, HTN) Hx Family Respiratory Disorders: Yes (COPD) Mother Adopted: No Family Member Ethnicity: Non- Living Status: Hx Family Cardiac Disorders: Yes (CHF) Hx Family Respiratory Disorders: Yes (COPD) Hx Family Cancer: Yes (skin) Hx Family GI Disorders: No Hx Family Endocrine Disorder: Yes (DM) Hx Family Neuromuscular Disorders: No Hx Family Neurologic Disorders: Yes (CVA with rt sided weakness) Hx Family HEENT Disorders: Yes ([place]) Hx Family Autoimmune Disorders: No Internal Medicine - H&P: Meds Latanoprost [Xalatan] 1 drop BOTH EYES HS 04/06/16 [History] SitaGLIPtin [Januvia] 100 mg PO DAILY 04/06/16 [History] Albuterol Sulfate [Albuterol Inhaler] 2 puff IH Q4H PRN 04/14/17 [History] Citalopram Hydrobromide [Citalopram HBr] 40 mg PO HS 04/14/17 [History] Docusate [Colace] 100 mg PO DAILY 04/14/17 [History] Gabapentin [Neurontin] 600 mg PO HS 04/14/17 [History] Brimonidine 0.2% [Alphagan] 1 drop BOTH EYES BID 12/19/17 [History] Propylene Glycol/Peg 400 [Systane Ultra 0.4-0.3% Eye Drp] 1 drop OP QID 12/19/17 [History] Ipratropium/Albuterol Neb [Duoneb] 3 ml IH [id number] PRN inhsol 01/18/18 [Rx] Iron Polysaccharide Complex [Ferrex 150] 150 mg PO DAILY capsule 01/18/18 [Rx] Ascorbic Acid [Vitamin C] 500 mg PO 0630 #30 tablet 01/25/18 [Rx] Esomeprazole Magnesium [Nexium] 40 mg PO DAILY 03/29/18 [History] Ibandronate Sodium [Boniva] 150 mg PO QMONTH 03/29/18 [History] Diltiazem CD (24hr) [Cardizem CD] 180 mg PO DAILY #30 cap.er.24h 05/18/18 [Rx] Rivaroxaban [Xarelto] 20 mg PO 1700 06/06/18 [History] Simvastatin [Zocor] 40 mg PO HS 06/06/18 [History] Furosemide [Lasix] 40 mg PO DAILY 30 Days #30 tablet 06/15/18 [Rx] Insulin DETEMIR [Levemir Flextouch] 20 unit SQ HS 07/13/18 [History] Potassium Chloride 40 meq PO DAILY 15 Days #30 tab.er.prt 07/21/18 [Rx] 3 Allergy/AdvReac Type Severity Reaction Status Date / Time hydrocodone [From Vicodin] AdvReac Nausea Verified 05/13/18 10:46 Hydromorphone [From Dilaudid] AdvReac Nausea Verified 05/13/18 10:46 All Systems PM: A 10-system review of systems was performed and is negative for pertinent findings except as documented above in the HPI. - Constitutional Constitutional: weakness, no chills, no fever(s) - EENT Eyes: no pain - Cardiovascular Cardiovascular ROS IM: dyspnea on exertion, lightheadedness, no chest pain, no irregular heart rhythm, no orthopnea, no palpitations - Respiratory Respiratory: dyspnea, wheezing, no cough, no pain on inspiration, no chest congestion - Gastrointestinal Gastrointestinal: no diarrhea, no loose stools, no nausea, no vomiting - Genitourinary Genitourinary: no urinary frequency, no urinary urgency - Musculoskeletal Musculoskeletal ROS IM: no back pain - Neurological Neurological ROS: confusion, weakness, no disequilibrium, no dizziness, no lack of coordination, no vertigo - Psychiatric Psychiatric: hallucinations, no anxiety, no panic attacks, no suicidal ideation - Endocrine Endocrine IM: no polydipsia, no polyphagia, no polyuria - Allergic/Immunologic Allergic/Immunologic: no wheezing Additional comments: Rest of the review of systems negative. - Constitutional Vitals: Temp Pulse Resp BP Pulse Ox 98.4 F 93 24 136/75 97 08/13/18 11:49 08/13/18 14:09 08/13/18 14:09 08/13/18 14:09 08/13/18 14:09 Exam: General: mild somnolence, in mild distress due to resp distress Head: atraumatic, normocephalic Cardiovascular: Irregularly, irregular, Normal S1 & S2, no rubs, murmurs or gallops. JVD unable to be access to due short neck. Lungs: decreased breath sounds in the right lower lung, mild crackles at bases b/l, no wheezing. Abdomen: Obese, Soft, non-tender, no rigidity. Extremities: Anasarca Neurological: Alert and oriented x4. Psych: Patient's affect is normal Rest of the physical exam is non contributory Internal Med - H&P Results - Labs CBC & Chem 7: 08/13/18 12:12 08/13/18 12:12 Labs: Short CBC 08/13/18 Range/Units 12:12 WBC 12.4 H (4.3-11.1) K/mcL Hgb 10.0 L (11.5-15.4) g/dL Hct 34.4 L (35.3-44.9) % Plt Count 190 (140-400) K/mcL Neutrophils # 8.8 (1.6-8.9) K/mcL BMP 08/13/18 12:12 Sodium 138 Potassium 4.3 Chloride 91 L Carbon Dioxide 39 H BUN 25 H Creatinine 1.26 H Glucose 174 H Calcium 9.3 Cardiac Enzymes 08/13/18 Range/Units 12:12 Troponin I 0.03 (< 0.04) ng/mL Liver Function 08/13/18 Range/Units 12:26 Total Bilirubin 0.9 (0.3-1.0) mg/dL Direct Bilirubin 0.4 H (0.0-0.2) mg/dL AST 10 L (13-39) Units/L ALT 4 L (7-52) Units/L Alkaline Phosphatase 75 (34-104) Units/L Albumin 3.2 L (3.5-5.7) g/dL Urine 08/13/18 Range/Units 13:41 Urine Color Yellow (Yellow) Urine Clarity Clear (Clear) Urine pH 5.5 (5.0-8.0) pH Units Ur Specific [place] 1.017 (1.010-1.025) Urine Protein Negative (Neg-Trace) mg/dL Urine Glucose (UA) Normal (Normal) mg/dL - ABG Interpretation ABG results: 08/13/18 08/13/18 13:17 14:13 ABG pH 7.26 L 7.34 ABG pCO2 103 H* 82 H* D ABG pO2 125 H 63 L D ABG HCO3 46 H 44 H ABG Total CO2 49 H 47 H ABG O2 Saturation 98 88 L ABG Base Excess 14 H 15 H - Impressions ITS Impressions Chest X-Ray 08/13/18 11:58 IMPRESSION: No acute findings. Low lung volumes with chronic left basilar disease. D/ / James Garcia MD / James Garcia MD Interpreting Provider: James Garcia MD - Assessment and plan (1) Acute on chronic respiratory failure with hypoxia and hypercapnia Current Visit: Yes Status: Acute Assessment and plan: Plan Admit to inpatient as patient is expected to be in the hospital for more than 2 midnights. Continue BiPap titrate for O2Sat >92% Duo-Nebs Q4RT scheduled Pulm Consult Solu-Medrol 40mg/IV BID Will start patient on Azithromycin 500mg/IV daily Patient has been admitted for hypercapnic respiratory failure 3 times over the past 2 months Palliative care was consulted during her last admission, and she wants to be full code. (2) COPD (chronic obstructive pulmonary disease) Current Visit: No Status: Chronic Assessment and plan: Plan of care as above Qualifiers: COPD type: unspecified COPD Qualified Code(s): J44.9 - Chronic obstructive pulmonary disease, unspecified (3) CHF (congestive heart failure) Current Visit: Yes Status: Acute Assessment and plan: Minimal crackles at the bases b/l Plan: Started on gentle IV diruresis with furosemide 40mg/IV BID strict intake and output water restriction to 1.5 litters a day. daily weight No ACEs due to MARIFER Serial trops BNP Qualifiers: Heart failure type: diastolic Heart failure chronicity: acute on chronic Qualified Code(s): I50.33 - Acute on chronic diastolic (congestive) heart failure (4) Weakness Current Visit: Yes Status: Acute Assessment and plan: PO/OT evaluation when respiratory status allows (5) Acute kidney injury superimposed on chronic kidney disease Current Visit: No Status: Acute Assessment and plan: MARIFER most likely due to mild CHF exacerbation Will start IV diuresis and monitor Avoid nephrotoxic medications (6) Leukocytosis Current Visit: No Status: Acute Assessment and plan: Most likely reactive. UA reflex to microscopy. Qualifiers: Leukocytosis type: unspecified Qualified Code(s): D72.829 - Elevated white blood cell count, unspecified (7) Afib Current Visit: No Status: Chronic Assessment and plan: Rate controlled on cardizem. Will resume home medication tomorrow on Ribaroxaban 20mg/PO daily Qualifiers: Atrial fibrillation type: chronic Qualified Code(s): I48.2 - Chronic atrial fibrillation (8) Anemia Current Visit: No Status: Chronic Assessment and plan: H&H stable will monitor Will consider transfusing the patient if HB<7, Hct <23 or patient becomes symptomatic. Qualifiers: Anemia type: unspecified type Qualified Code(s): D64.9 - Anemia, unspecified (9) Diabetes Current Visit: No Status: Chronic Assessment and plan: Plan: Accu-checks ACHS clear liquid diet Lispro low dose sliding scale AC levemir 5 units HS Qualifiers: Diabetes mellitus type: type 2 Diabetes mellitus residential insulin use: without product representative use Diabetes mellitus complication status: with kidney complications Diabetes mellitus complication detail: with chronic kidney disease Chronic kidney disease stage: stage 3 (moderate) Qualified Code(s): E11.22 - Type 2 diabetes mellitus with diabetic chronic kidney disease; N18.3 - Chronic kidney disease, stage 3 (moderate) (10) Hypertension Current Visit: No Status: Chronic Assessment and plan: BP well controlled. will continue Cardizem 180mg/PO daily Hydralazine 5mg/IV Q6HR PRN for SBP >190 Qualifiers: Hypertension type: essential hypertension Qualified Code(s): I10 - Essential (primary) hypertension (11) Morbid obesity Current Visit: No Status: Chronic (12) Phrenic nerve palsy Current Visit: No Status: Chronic (13) DVT prophylaxis Current Visit: No Status: Acute Assessment and plan: Patient on Ribaroxaban due to A.Fib - Time Spent With Patient Total time spent is greater than 50% in coordination of care (as documented) at patient's floor/unit and/or counseling patient: Greater than 35 minutes (45)
[2018-08-13] MEDS ORDERED: Insulin LISPRO 300 UNITS/3 ML VIAL SQ SCH (17:00)
[2018-08-13] MEDS ORDERED: *HR* Heparin 5,000 UNIT/ML VIAL SQ SCH (18:00)
[2018-08-13] MEDS: MethylPREDNISolone 40 MG/ML VIAL IVP SCH (18:27)
[2018-08-13] MEDS: traMADol 50 MG TABLET PO PRN (18:27)
[2018-08-13] MEDS: *HR* Rivaroxaban 10 MG TABLET PO SCH (18:27)
[2018-08-13] MEDS: Insulin LISPRO 300 UNITS/3 ML VIAL SQ SCH (18:30)
[2018-08-13 19:05] LABS: Bilirubin,Urine Negative (Negative); Blood,Urine Negative (Negative); Clarity,Urine Clear (Clear); Color,Urine Yellow (Yellow); Glucose,Urine (UA) Normal (Normal); Ketones,Urine Negative (Negative); Leukocyte Esterase,Urine Small (Negative); Nitrite,Urine Negative (Negative); PH,Urine 5.5 pH Units (5.0-8.0); Protein,Urine Negative (Neg-Trace); Specific Gravity,Urine 1.018 (1.010-1.025); Urobilinogen,Urine Normal (Normal)
[2018-08-13 19:09] LABS: Bacteria,Urine None Seen per hpf (None-Few); Hyaline Casts,Urine None Seen per lpf (None-Few); RBC,Urine 0-3 per hpf (0-3); Squamous Epithelial Cell,Urine Moderate per lpf (None-Few)
[2018-08-13] MEDS: Insulin DETEMIR 100 UNIT/ML X5UNITS SQ SCH (20:14)
[2018-08-13] MEDS ORDERED: Furosemide 40 MG/4 ML VIAL IVP SCH (21:00)
[2018-08-14] MEDS: Ipratropium/Albuterol Neb 3 ML IH SCH ×4 (03:31→21:53)
[2018-08-14 04:12] LABS: Basophils % 0.3 %; Hematocrit 29.2 % (35.3-44.9); Hemoglobin 8.6 g/dL (11.5-15.4); Immature Granulocytes % 0.6 % (0-4); Lymphocytes # 0.5 K/mcL (0.6-4.6); Lymphocytes % 6.6 %; Mean Corpuscular HGB Conc 29.5 g/dL (31.6-35.5); Mean Corpuscular Hemoglobin 27.8 pg (28.0-33.3); Mean Corpuscular Volume 94.5 fL (83.0-100.0); Monocytes # 0.2 K/mcL (0.0-1.3); Monocytes % 2.7 %; Neutrophils # 7.1 K/mcL (1.6-8.9); Platelet Count 165 K/mcL (140-400); Red Blood Count 3.09 M/mcL (3.82-4.97); Red Cell Distribution Width 15.3 % (11.5-14.5); Segmented Neutrophils % 89.8 %
[2018-08-14 04:14] LABS: Activated Partial Thrombo Time 38.2 Seconds (26.0-36.0); INR 1.8; Prothrombin Time 20.1 Seconds (9.4-12.1)
[2018-08-14 04:20] LABS: BUN/Creatinine Ratio 21 (6-26); Blood Urea Nitrogen 22 mg/dL (8-23); Calcium 8.8 mg/dL (8.6-10.3); Carbon Dioxide 40 mEq/L (23-29); Chloride 92 mEq/L (98-107); Glucose 212 mg/dL (70-105); Magnesium 1.8 mg/dL (1.6-2.6); Osmolality,Calculated 296 (280-300); Sodium 138 mEq/L (136-145); eGFR For Non-African Americans 54 (> 60)
[2018-08-14 05:02] LABS: ABG Base Excess 16 mEq/L (-2 to 3); ABG HCO3 44 mEq/L (21-27); ABG Oxygen Saturation 90 % (95-98); ABG PCO2 73 mmHg (35-45); ABG PH 7.39 pH Units (7.32-7.45); ABG PO2 62 mmHg (85-104); ABG TCO2 46 mEq/L (20-26); Blood Gas Respiration Rate 8
[2018-08-14] MEDS: MethylPREDNISolone 40 MG/ML VIAL IVP SCH (05:23)
[2018-08-14] MEDS: Insulin LISPRO 300 UNITS/3 ML VIAL SQ SCH ×3 (08:35→16:36)
[2018-08-14] MEDS: Diltiazem CD (24hr) 180 MG CAPSULE PO SCH (08:38)
[2018-08-14] MEDS: Nystatin POWDER 30 GM BOTTLE TP SCH ×3 (08:39→20:45)
[2018-08-14] MEDS: Furosemide 40 MG/4 ML VIAL IVP SCH (08:39)
--- NOTE | 2018-08-14 09:24 | Internal Med Progress Note ---
Hospitalist Progress Note - Encounter Date of Encounter: 08/14/18 Time of Encounter: 09:20 - Subjective Interval History: Patient seen and evaluated at bedside. she reports that she is feeling better today and she is not as lethargic as she was. reports that for about a week after coming home from rehab she has not been using the BiPap appropriately, rep orts that she goes to bed at around 6pm and wears the BiPap but that she always gets up to use the restroom at around 2-3am and then she does not wears the mask for the rest of the night/day because it is uncomfortable for her to get back on the bed. - Exam Vitals: Temp Pulse Resp BP Pulse Ox 98.3 F 84 18 144/80 94 08/14/18 06:49 08/14/18 06:49 08/14/18 06:49 08/14/18 06:49 08/14/18 06:49 Exam: Vitals: Reviewed General: Obese. in mild distress due to resp distress but improved when compared with yesterday. Head: atraumatic, normocephalic Cardiovascular: Irregularly, irregular, Normal S1 & S2, no rubs, murmurs or gallops. JVD unable to be access to due short neck. Lungs: decreased breath sounds bilaterally, mild crackles at bases b/l, no wheezing. Abdomen: Obese, Soft, non-tender, no rigidity. NABS in all 4 quadrants Extremities: Anasarca Neurological: Alert and oriented x4. CN II-XII intact. Psych: Patient's affect is normal Rest of the physical exam is non contributory - Assessment and Plan (1) Acute on chronic respiratory failure with hypoxia and hypercapnia Current Visit: Yes Status: Acute Assessment and Plan: Improved. patient not somnolent or lethargic Plan Continue with intermittent BiPap to nasal cannula titrate for O2Sat >92% Pulm consult Incentive spirometry decrease Solu-medrol to 40mg/IV daily Continue azithromycin 500mg/IV daily Duo-Nebs Q4RT scheduled (2) COPD (chronic obstructive pulmonary disease) Current Visit: No Status: Acute Assessment and Plan: No wheezing heard on auscultation Plan of care as above. (3) CHF (congestive heart failure) Current Visit: Yes Status: Acute Assessment and Plan: crackles at the bases b/l. total balance negative 615ml Plan continue strict intake and output fluids restriction to 1.5 litters a day daily weight decrease furosemide to 40mg/IV daily (4) Weakness Current Visit: Yes Status: Chronic Assessment and Plan: PT/OT has been consulted. (5) Acute kidney injury superimposed on chronic kidney disease Current Visit: No Status: Resolved Assessment and Plan: most likely due to acute decompensated CHF. resolved with IV diuretics. kiday function at baseline. avoid nephrotoxic medications. (6) Afib Current Visit: No Status: Chronic Assessment and Plan: Rate controlled on cardizem 180mg/PO daily on an Oral anticagulant due to high CHADSVASC score >2 (7) Anemia Current Visit: No Status: Chronic Assessment and Plan: H&H stable. No sings of bleeding will continue to monitor. (8) Diabetes Current Visit: No Status: Chronic Assessment and Plan: Blood sugar well controlled Continue levemir 10 units HS On lisprohigh dose sliding scale carb controlled diet. (9) Hypertension Current Visit: No Status: Chronic Assessment and Plan: BP well controlled. Patient on Cardizem 180mg/PO daily and furosemide 40mg/IV daily. continue current therapy. (10) Morbid obesity Current Visit: No Status: Chronic (11) Phrenic nerve palsy Current Visit: No Status: Chronic (12) Leukocytosis Current Visit: No Status: Resolved DVT Prophylaxis: on Ribaroxaban due to A.fib - Summary of Assessment and Plan Summary of Assessment and Plan: Patient to remain in the hospital due to acute hypercapnic/hypoxemic respiratory failure on intermittent BiPap. - Time Spent with Patient Total time spent is greater than 50% in coordination of care (as documented) at patient's floor/unit and/or counseling patient: Greater than 35 minutes (45) Plan of Care Discussed with: patient (and the nurse.) Internal Medicine: Result - Labs CBC & Chem 7: 08/14/18 03:41 08/14/18 03:41 Labs: Short CBC 08/13/18 08/14/18 Range/Units 12:12 03:41 WBC 12.4 H 7.9 (4.3-11.1) K/mcL Hgb 10.0 L 8.6 L (11.5-15.4) g/dL Hct 34.4 L 29.2 L (35.3-44.9) % Plt Count 190 165 (140-400) K/mcL Neutrophils # 8.8 7.1 (1.6-8.9) K/mcL BMP 08/13/18 08/14/18 12:12 03:41 Sodium 138 138 Potassium 4.3 4.0 Chloride 91 L 92 L Carbon Dioxide 39 H 40 H* BUN 25 H 22 Creatinine 1.26 H 1.03 Glucose 174 H 212 H Calcium 9.3 8.8 Cardiac Enzymes 08/13/18 08/13/18 08/13/18 Range/Units 12:12 16:06 21:50 Troponin I 0.03 0.03 0.03 (< 0.04) ng/mL 08/14/18 Range/Units 03:41 Troponin I < 0.03 (< 0.04) ng/mL Liver Function 08/13/18 Range/Units 12:26 Total Bilirubin 0.9 (0.3-1.0) mg/dL Direct Bilirubin 0.4 H (0.0-0.2) mg/dL AST 10 L (13-39) Units/L ALT 4 L (7-52) Units/L Alkaline Phosphatase 75 (34-104) Units/L Albumin 3.2 L (3.5-5.7) g/dL Urine 08/13/18 08/13/18 Range/Units 13:41 18:55 Urine Color Yellow Yellow (Yellow) Urine Clarity Clear Clear (Clear) Urine pH 5.5 5.5 (5.0-8.0) pH Units Ur Specific [place] 1.017 1.018 (1.010-1.025) Urine Protein Negative Negative (Neg-Trace) mg/dL Urine Glucose (UA) Normal Normal (Normal) mg/dL - ABG Interpretation ABG results: ABG ABG pH 7.39 pH Units (7.32-7.45) 08/14/18 04:52 ABG pCO2 73 mmHg (35-45) H* 08/14/18 04:52 ABG pO2 62 mmHg (85-104) L 08/14/18 04:52 ABG O2 Saturation 90 % (95-98) L 08/14/18 04:52 PT/INR, D-dimer PT 20.1 Seconds (9.4-12.1) H D 08/14/18 03:41 - Impressions Impressions Chest X-Ray 08/13/18 11:58 IMPRESSION: No acute findings. Low lung volumes with chronic left basilar disease. D/ / James Garcia MD / James Garcia MD Interpreting Provider: James Garcia MD Consult Discharge Plan - Plan Referrals: Aayush Chase MD [Primary Care Provider] - (2) COPD (chronic obstructive pulmonary disease) Qualifiers: COPD type: COPD with acute exacerbation Qualified Code(s): J44.1 - Chronic obstructive pulmonary disease with (acute) exacerbation (3) CHF (congestive heart failure) Qualifiers: Heart failure type: diastolic Heart failure chronicity: acute on chronic Qualified Code(s): I50.33 - Acute on chronic diastolic (congestive) heart failure (6) Afib Qualifiers: Atrial fibrillation type: chronic Qualified Code(s): I48.2 - Chronic atrial fibrillation (7) Anemia Qualifiers: Anemia type: unspecified type Qualified Code(s): D64.9 - Anemia, unspecified (8) Diabetes Qualifiers: Diabetes mellitus type: type 2 Diabetes mellitus custodial insulin use: without long chain beamer use Diabetes mellitus complication status: with kidney complications Diabetes mellitus complication detail: with chronic kidney disease Chronic kidney disease stage: stage 3 (moderate) Qualified Code(s): E11.22 - Type 2 diabetes mellitus with diabetic chronic kidney disease; N18.3 - Chronic kidney disease, stage 3 (moderate) (9) Hypertension Qualifiers: Hypertension type: essential hypertension Qualified Code(s): I10 - Essential (primary) hypertension (12) Leukocytosis Qualifiers: Leukocytosis type: unspecified Qualified Code(s): D72.829 - Elevated white blood cell count, unspecified
--- NOTE | 2018-08-14 14:12 | Electrocardiograph Report ---
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
--- NOTE | 2018-08-14 14:13 | Electrocardiograph Report ---
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
[2018-08-14] MEDS ORDERED: Azithromycin 500 MG in D5% in Water 250 ML IVPB SCH (16:00)
[2018-08-14] MEDS: *HR* Rivaroxaban 10 MG TABLET PO SCH (16:36)
[2018-08-14] MEDS: traMADol 50 MG TABLET PO PRN (20:59)
[2018-08-14] MEDS ORDERED: Latanoprost 2.5 ML BOTTLE BOTH EYES SCH (21:00)
[2018-08-14] MEDS: Insulin DETEMIR 100 UNIT/ML X5UNITS SQ SCH (21:55)
[2018-08-15] MEDS: Ipratropium/Albuterol Neb 3 ML IH SCH ×3 (04:16→15:39)
[2018-08-15 04:28] LABS: Calcium 8.8 mg/dL (8.6-10.3); Magnesium 1.9 mg/dL (1.6-2.6); Phosphorous 3.1 mg/dL (2.7-4.5)
[2018-08-15] MEDS: Furosemide 40 MG/4 ML VIAL IVP SCH (07:59)
[2018-08-15] MEDS: Diltiazem CD (24hr) 180 MG CAPSULE PO SCH (07:59)
[2018-08-15] MEDS: Insulin LISPRO 300 UNITS/3 ML VIAL SQ SCH ×2 (08:00→11:40)
[2018-08-15] MEDS: Nystatin POWDER 30 GM BOTTLE TP SCH (08:03)
[2018-08-15] MEDS ORDERED: MethylPREDNISolone 40 MG/ML VIAL IVP SCH (09:00)
[2018-08-15 10:42] VITALS: BP 120/61
--- NOTE | 2018-08-15 13:05 | Discharge Summary ---
- NOTES TO OUTPATIENT PROVIDER Notes to Outpatient Provider: none Orders not resulted at time of discharge: Pending orders 08/13/18 12:27 Culture,Sputum with Gram Stain [RM] Stat 08/13/18 13:15 Culture,Blood [BC] Stat Date of Encounter: 08/15/18 Time of Encounter: 11:00 - Discharge Diagnosis (1) Anemia Priority: Primary Status: Chronic Qualifiers: Anemia type: unspecified type Qualified Code(s): D64.9 - Anemia, unspecified (2) Hypertension Priority: Secondary Status: Chronic Qualifiers: Hypertension type: essential hypertension Qualified Code(s): I10 - Essential (primary) hypertension (3) Diabetes Priority: Secondary Status: Chronic Qualifiers: Diabetes mellitus type: type 2 Diabetes mellitus senior living insulin use: without ferry terminal supervisor use Diabetes mellitus complication status: with kidney complications Diabetes mellitus complication detail: with chronic kidney disease Chronic kidney disease stage: stage 3 (moderate) Qualified Code(s): E11.22 - Type 2 diabetes mellitus with diabetic chronic kidney disease; N18.3 - Chronic kidney disease, stage 3 (moderate) (4) Weakness Priority: Primary Status: Chronic (5) Morbid obesity Priority: Secondary Status: Chronic (6) Acute on chronic respiratory failure with hypoxia and hypercapnia Priority: Primary Status: Acute (7) Afib Priority: Secondary Status: Chronic Qualifiers: Atrial fibrillation type: chronic Qualified Code(s): I48.2 - Chronic atrial fibrillation (8) COPD (chronic obstructive pulmonary disease) Priority: Secondary Status: Acute Qualifiers: COPD type: COPD with acute exacerbation Qualified Code(s): J44.1 - Chronic obstructive pulmonary disease with (acute) exacerbation (9) 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 Patients son states that since she was discharged approximately one week ago, her respiratory status had deteriorated becoming more labored. Son also reported that patient for the past couple of days has become sluggish/lethargic, in addition to having visual hallucination for the past 2 days. In the ER, patient found to be in Hypercapnic respiratory failure with a POC2 >90. Patient placed on a BiPaP and the medicine service called for admission. During patients hospital stay, her respiratory status improved after treatment with IV Solu-Medrol and IV azithromycin in addition to scheduled DuoNebs. Patient is medically stable to be discharged home to complete a 5 day course of prednisone and azithromycin. - Time Spent with Patient Total time spent providing and/or coordinating discharge services: Less than 30 minutes - Discharge Medications Prescriptions: Azithromycin [Zithromax Tri-Mychal] 500 mg PO DAILY #5 tablet Nystatin POWDER [Nystop] 1 appl TP TID #1 bottle predniSONE [PredniSONE] 20 mg PO BIDWM 5 Days #10 tablet Home Medications: Latanoprost [Xalatan] 1 drop BOTH EYES HS 04/06/16 [History] SitaGLIPtin [Januvia] 100 mg PO DAILY 04/06/16 [History] Albuterol Sulfate [Albuterol Inhaler] 2 puff IH Q4H PRN 04/14/17 [History] Citalopram Hydrobromide [Citalopram HBr] 40 mg PO HS 04/14/17 [History] Gabapentin [Neurontin] 600 mg PO HS 04/14/17 [History] Brimonidine 0.2% [Alphagan] 1 drop BOTH EYES BID 12/19/17 [History] Propylene Glycol/Peg 400 [Systane Ultra 0.4-0.3% Eye Drp] 1 drop OP QID 12/19/17 [History] Ascorbic Acid [Vitamin C] 500 mg PO 0630 #30 tablet 01/25/18 [Rx] Ibandronate Sodium [Boniva] 150 mg PO QMONTH 03/29/18 [History] Diltiazem CD (24hr) [Cardizem CD] 180 mg PO DAILY #30 cap.er.24h 05/18/18 [Rx] Rivaroxaban [Xarelto] 20 mg PO 1700 06/06/18 [History] Simvastatin [Zocor] 40 mg PO HS 06/06/18 [History] Furosemide [Lasix] 40 mg PO DAILY 30 Days #30 tablet 06/15/18 [Rx] Insulin DETEMIR [Levemir Flextouch] 20 unit SQ HS 07/13/18 [History] Potassium Chloride 40 meq PO DAILY 15 Days #30 tab.er.prt 07/21/18 [Rx] Ferrous Sulfate [Iron] 325 mg PO DAILY 08/14/18 [History] Pantoprazole Sodium [Protonix] 40 mg PO DAILY 08/14/18 [History] Azithromycin [Zithromax Tri-Mychal] 500 mg PO DAILY #5 tablet 08/15/18 [Rx] Nystatin POWDER [Nystop] 1 appl TP TID #1 bottle 08/15/18 [Rx] predniSONE [PredniSONE] 20 mg PO BIDWM 5 Days #10 tablet 08/15/18 [Rx] Allergies/Adverse Reactions: Allergy/AdvReac Type Severity Reaction Status Date / Time hydrocodone [From Vicodin] AdvReac Nausea Verified 05/13/18 10:46 Hydromorphone [From Dilaudid] AdvReac Nausea Verified 05/13/18 10:46 Date of admission: 08/13/18 16:33 Primary care physician: Aayush Chase MD - Constitutional Vitals: Temp Pulse Resp BP Pulse Ox 98.0 F 62 18 120/61 99 08/15/18 10:41 08/15/18 10:41 08/15/18 10:41 08/15/18 10:41 08/15/18 10:41 Exam: Gen.: Nonacute distress, alert and oriented 3 Skin: Normal color - Patient Status Disposition: Home Health Service Condition: Fair - Discharge Instructions Instructions: Prednisone (By mouth), Nystatin (On the skin), Azithromycin (By mouth), Heart Failure (DC), Acute Respiratory Distress Syndrome (DC), Chronic Hypertension (DC), Anemia (GEN) Follow Up With: Aayush Chase MD [Primary Care Provider] - Forms: ED Satisfaction Letter Additional Instructions: pcp requested
--- NOTE | 2018-08-15 13:06 | Physician Discharge Referral ---
Home Health/Hosp Referral Info Transfer to: Home Health - Diagnosis (1) Anemia Status: Chronic (2) Hypertension Status: Chronic (3) Diabetes Status: Chronic (4) Weakness Status: Chronic (5) Morbid obesity Status: Chronic (6) Acute on chronic respiratory failure with hypoxia and hypercapnia Status: Acute (7) Afib Status: Chronic (8) COPD (chronic obstructive pulmonary disease) Status: Acute (9) Phrenic nerve palsy Status: Chronic (10) Acute kidney injury superimposed on chronic kidney disease Status: Resolved (11) Leukocytosis Status: Resolved (12) CHF (congestive heart failure) Status: Acute - Respiratory Orders Smoking Cessation: Smoking cessation has been advised. For more information, call the [place] Tobacco Quit Line at 8-481-IFKM-NOW. - Services Needed Following services are medically necessary services: Nursing, Home Health Aide, Physical Therapy, Occupational Therapy - Transfer Medications Prescriptions: Azithromycin [Zithromax Tri-Mychal] 500 mg PO DAILY #5 tablet Nystatin POWDER [Nystop] 1 appl TP TID #1 bottle predniSONE [PredniSONE] 20 mg PO BIDWM 5 Days #10 tablet Home Medications: Latanoprost [Xalatan] 1 drop BOTH EYES HS 04/06/16 [History] SitaGLIPtin [Januvia] 100 mg PO DAILY 04/06/16 [History] Albuterol Sulfate [Albuterol Inhaler] 2 puff IH Q4H PRN 04/14/17 [History] Citalopram Hydrobromide [Citalopram HBr] 40 mg PO HS 04/14/17 [History] Gabapentin [Neurontin] 600 mg PO HS 04/14/17 [History] Brimonidine 0.2% [Alphagan] 1 drop BOTH EYES BID 12/19/17 [History] Propylene Glycol/Peg 400 [Systane Ultra 0.4-0.3% Eye Drp] 1 drop OP QID 12/19/17 [History] Ascorbic Acid [Vitamin C] 500 mg PO 0630 #30 tablet 01/25/18 [Rx] Ibandronate Sodium [Boniva] 150 mg PO QMONTH 03/29/18 [History] Diltiazem CD (24hr) [Cardizem CD] 180 mg PO DAILY #30 cap.er.24h 05/18/18 [Rx] Rivaroxaban [Xarelto] 20 mg PO 1700 06/06/18 [History] Simvastatin [Zocor] 40 mg PO HS 06/06/18 [History] Furosemide [Lasix] 40 mg PO DAILY 30 Days #30 tablet 06/15/18 [Rx] Insulin DETEMIR [Levemir Flextouch] 20 unit SQ HS 07/13/18 [History] Potassium Chloride 40 meq PO DAILY 15 Days #30 tab.er.prt 07/21/18 [Rx] Ferrous Sulfate [Iron] 325 mg PO DAILY 08/14/18 [History] Pantoprazole Sodium [Protonix] 40 mg PO DAILY 08/14/18 [History] Azithromycin [Zithromax Tri-Mychal] 500 mg PO DAILY #5 tablet 08/15/18 [Rx] Nystatin POWDER [Nystop] 1 appl TP TID #1 bottle 08/15/18 [Rx] predniSONE [PredniSONE] 20 mg PO BIDWM 5 Days #10 tablet 08/15/18 [Rx] Allergies/Adverse Reactions: Allergy/AdvReac Type Severity Reaction Status Date / Time hydrocodone [From Vicodin] AdvReac Nausea Verified 05/13/18 10:46 Hydromorphone [From Dilaudid] AdvReac Nausea Verified 05/13/18 10:46 Certification: Further, I certify that my clinical findings support that this patient is homebound (i.e. absences from home require considerable and taxing effort and are for medical reasons or sikh services or infrequently or short duration when for other reasons) because: Homebound Reason: Patient requires assistance of a person or device to safely leave home Attestation: My signature below is to certify that this patient is under my care and that I, or nurse practitioner, or a physician's psychiatric technician assistant working with me, has a [id number] encounter with this patient.
== END 2018-08-15 17:47 | disposition home health service (06) | DRG 291 ==
LOC: EMEROOARM 11:44 → 2NENU 11:44 → SUATTDRO 16:33 → 2NENU 17:44
PROVIDERS: ADMIT Internal Medicine; ATTEND Hospitalist

== ENCOUNTER 2020-05-18 12:43 | Inpatient (IN) ==
[2020-05-18 13:26] LABS: Basophils % 0.7 %; Hemoglobin 9.4 g/dL (11.5-15.4); Red Cell Distribution Width 14.8 % (11.5-14.5)
[2020-05-18 13:27] LABS: Basophils # 0.1 K/mcL (0.0-0.2); Eosinophils # 0.3 K/mcL (0.0-0.6); Eosinophils % 3.7 %; Hematocrit 33.1 % (35.3-44.9); Immature Granulocytes % 0.2 % (0-4); Lymphocytes # 1.6 K/mcL (0.6-4.6); Lymphocytes % 18.8 %; Mean Corpuscular HGB Conc 28.4 g/dL (31.6-35.5); Mean Corpuscular Hemoglobin 28.7 pg (28.0-33.3); Mean Corpuscular Volume 100.9 fL (83.0-100.0); Mean Platelet Volume 11.7 fL (9.4-12.4); Monocytes # 0.8 K/mcL (0.0-1.3); Monocytes % 9.3 %; Neutrophils # 5.8 K/mcL (1.6-8.9); Platelet Count 170 K/mcL (140-400); Red Blood Count 3.28 M/mcL (3.82-4.97); Segmented Neutrophils % 67.3 %; White Blood Count 8.6 K/mcL (4.3-11.1)
[2020-05-18 13:48] LABS: Calcium 9.1 mg/dL (8.6-10.3); Potassium 3.8 mEq/L (3.5-5.1); Troponin I 0.03 ng/mL (< 0.04)
[2020-05-18 13:52] LABS: Anisocytosis 1+ (Not Present); Platelet Estimate Normal (Normal)
[2020-05-18] MEDS ORDERED: methylPREDNISolone 125 MG/2 ML VIAL IVP ONE (14:57)
[2020-05-18] MEDS ORDERED: Albuterol 2.5 MG/3 ML NEBULIZER IH ONE (14:58)
[2020-05-18] MEDS ORDERED: Piperacillin/Tazobactam 3.375 GM in 0.9 % Sodium Chloride Mini Bag 100 ML IVPB ONE (14:58)
[2020-05-18] MEDS ORDERED: Furosemide 40 MG/4 ML VIAL IVP ONE (14:59)
[2020-05-18 16:24] LABS: Adenovirus Not Detected (Not Detect); Bordetella Pertussis Not Detected (Not Detect); Chlamydophila pneumoniae Not Detected (Not Detect); Coronavirus 229E Not Detected (Not Detect); Coronavirus HKU1 Not Detected (Not Detect); Coronavirus NL63 Not Detected (Not Detect); Coronavirus OC43 Not Detected (Not Detect); Human Metapneumovirus Not Detected (Not Detect); Human Rhinovirus/Enterovirus Not Detected (Not Detect); Influenza A Subtype 2009 H1 Not Detected (Not Detect); Influenza B Not Detected (Not Detect); Mycoplasma pneumoniae Not Detected (Not Detect); Parainfluenza Virus 1 Not Detected (Not Detect); Parainfluenza Virus 2 Not Detected (Not Detect); Parainfluenza Virus 3 Not Detected (Not Detect); Parainfluenza Virus 4 Not Detected (Not Detect); Respiratory Syncytial Virus Not Detected (Not Detect)
[2020-05-18] MEDS ORDERED: Naloxone 0.4 MG/ML INJ IVP PRN (16:35)
[2020-05-18] MEDS ORDERED: Ipratropium/Albuterol Neb 3 ML IH PRN (16:40)
[2020-05-18] MEDS ORDERED: Perflutren Lipid Microsphere 1.3 ML in 0.9 % Sodium Chloride 8.7 ML IVP PRN (17:23)
[2020-05-18] MEDS: Artificial Tears SOLN 15 ML BOTTLE BOTH EYES SCH ×2 (18:08→22:42)
[2020-05-18] MEDS: *HR* Rivaroxaban 10 MG TABLET PO SCH (18:08)
[2020-05-18 18:12] LABS: VBG HCO3 44 mEq/L (21-27); VBG PCO2 89 mmHg (41-51); VBG PO2 143 mmHg (25-50)
[2020-05-18] MEDS: Gabapentin 300 MG CAPSULE PO SCH (21:42)
[2020-05-18] MEDS: Insulin DETEMIR 100 UNIT/ML X5UNITS SQ SCH (21:48)
[2020-05-18] MEDS: Furosemide 60 MG in 0.9 % Sodium Chloride 50 ML IV SCH (21:49)
[2020-05-18] MEDS: Insulin LISPRO 300 UNITS/3 ML VIAL SQ SCH (22:38)
[2020-05-18] MEDS: Nystatin POWDER 30 GM BOTTLE TP SCH (22:41)
[2020-05-18] MEDS: Latanoprost 2.5 ML BOTTLE BOTH EYES SCH (22:42)
[2020-05-18] MEDS ORDERED: *HR* LORazepam 0.5 MG TABLET PO ONE (22:47)
[2020-05-19 03:54] LABS: Basophils % 0.2 %; Hematocrit 32.2 % (35.3-44.9)
[2020-05-19 03:56] LABS: Immature Granulocytes % 0.3 % (0-4); Lymphocytes # 0.4 K/mcL (0.6-4.6); Lymphocytes % 6.8 %; Mean Corpuscular Hemoglobin 27.8 pg (28.0-33.3); Mean Corpuscular Volume 99.4 fL (83.0-100.0); Mean Platelet Volume 11.8 fL (9.4-12.4); Monocytes # 0.1 K/mcL (0.0-1.3); Neutrophils # 5.8 K/mcL (1.6-8.9); Platelet Count 159 K/mcL (140-400); Red Blood Count 3.24 M/mcL (3.82-4.97); Red Cell Distribution Width 14.8 % (11.5-14.5); Segmented Neutrophils % 91.7 %; White Blood Count 6.3 K/mcL (4.3-11.1)
[2020-05-19 04:06] LABS: Calcium 9.1 mg/dL (8.6-10.3); Potassium 4.3 mEq/L (3.5-5.1)
[2020-05-19 04:36] LABS: Hypochromasia Present (Not Present); Platelet Estimate Normal (Normal)
[2020-05-19] MEDS: Ascorbic Acid 500 MG TABLET PO SCH (05:52)
[2020-05-19 08:10] LABS: VBG HCO3 40 mEq/L (21-27); VBG PCO2 62 mmHg (41-51); VBG PH 7.42 pH Units (7.32-7.42); VBG PO2 232 mmHg (25-50)
[2020-05-19] MEDS: MethylPREDNISolone 40 MG/ML VIAL IVP SCH ×2 (12:58→13:04)
[2020-05-19] MEDS: Artificial Tears SOLN 15 ML BOTTLE BOTH EYES SCH ×4 (12:59→21:35)
[2020-05-19] MEDS: Nystatin POWDER 30 GM BOTTLE TP SCH ×3 (13:00→21:36)
[2020-05-19] MEDS: Levothyroxine 25 MCG TABLET PO SCH (13:01)
[2020-05-19] MEDS: Gabapentin 300 MG CAPSULE PO SCH ×3 (13:02→21:34)
[2020-05-19] MEDS: Furosemide 60 MG in 0.9 % Sodium Chloride 50 ML IV SCH ×2 (13:02→21:38)
[2020-05-19] MEDS: Insulin DETEMIR 100 UNIT/ML X5UNITS SQ SCH ×2 (13:02→21:34)
[2020-05-19] MEDS: Acetaminophen 325 MG TABLET PO PRN (13:15)
[2020-05-19] MEDS ORDERED: *HR* Dextrose 50 % in Water (Vial) 50 ML VIAL IVP PRN (15:45)
[2020-05-19] MEDS ORDERED: D5% in Water 1,000 ML IVC PRN (15:45)
[2020-05-19] MEDS ORDERED: Dextrose Gel 15 GM/37.5 ML TUBE PO PRN ×2 (15:45)
[2020-05-19] MEDS ORDERED: Perflutren Lipid Microsphere 1.3 ML in 0.9 % Sodium Chloride 8.7 ML IVP PRN (16:23)
[2020-05-19] MEDS: Insulin LISPRO 300 UNITS/3 ML VIAL SQ SCH ×2 (17:05→21:35)
[2020-05-19] MEDS: *HR* Rivaroxaban 10 MG TABLET PO SCH (17:11)
[2020-05-19] MEDS: Latanoprost 2.5 ML BOTTLE BOTH EYES SCH (21:36)
[2020-05-20] MEDS: MethylPREDNISolone 40 MG/ML VIAL IVP SCH (00:35)
[2020-05-20] MEDS: Acetaminophen 325 MG TABLET PO PRN ×2 (03:09→08:46)
[2020-05-20] MEDS: Ascorbic Acid 500 MG TABLET PO SCH (05:15)
[2020-05-20] MEDS: Levothyroxine 25 MCG TABLET PO SCH (08:45)
[2020-05-20] MEDS: Gabapentin 300 MG CAPSULE PO SCH ×3 (08:47→21:00)
[2020-05-20] MEDS: Artificial Tears SOLN 15 ML BOTTLE BOTH EYES SCH ×4 (08:47→21:12)
[2020-05-20] MEDS: Insulin LISPRO 300 UNITS/3 ML VIAL SQ SCH ×4 (08:48→21:13)
[2020-05-20 11:39] LABS: Potassium 4.7 mEq/L (3.5-5.1)
[2020-05-20] MEDS: Furosemide 60 MG in 0.9 % Sodium Chloride 50 ML IV SCH ×2 (17:45→20:56)
[2020-05-20] MEDS: Insulin DETEMIR 100 UNIT/ML X5UNITS SQ SCH ×2 (17:46→20:54)
[2020-05-20] MEDS: Nystatin POWDER 30 GM BOTTLE TP SCH ×2 (17:46→20:54)
[2020-05-20] MEDS: *HR* Rivaroxaban 10 MG TABLET PO SCH (17:52)
[2020-05-20] MEDS: Latanoprost 2.5 ML BOTTLE BOTH EYES SCH (21:13)
[2020-05-21 03:25] LABS: Calcium 8.8 mg/dL (8.6-10.3); Potassium 4.4 mEq/L (3.5-5.1)
[2020-05-21] MEDS: MethylPREDNISolone 40 MG/ML VIAL IVP SCH (05:26)
[2020-05-21] MEDS: Ascorbic Acid 500 MG TABLET PO SCH (06:08)
[2020-05-21] MEDS: Insulin LISPRO 300 UNITS/3 ML VIAL SQ SCH ×4 (06:33→21:18)
[2020-05-21] MEDS ORDERED: Furosemide 40 MG in 0.9 % Sodium Chloride 50 ML IV SCH (09:00)
[2020-05-21] MEDS: Nystatin POWDER 30 GM BOTTLE TP SCH ×3 (10:17→21:17)
[2020-05-21] MEDS: Levothyroxine 25 MCG TABLET PO SCH (10:17)
[2020-05-21] MEDS: Gabapentin 300 MG CAPSULE PO SCH ×3 (10:17→21:18)
[2020-05-21] MEDS: Artificial Tears SOLN 15 ML BOTTLE BOTH EYES SCH ×4 (10:19→21:17)
[2020-05-21] MEDS: Insulin DETEMIR 100 UNIT/ML X5UNITS SQ SCH ×2 (10:26→21:18)
[2020-05-21] MEDS: Acetaminophen 325 MG TABLET PO PRN (11:05)
[2020-05-21] MEDS: *HR* Rivaroxaban 10 MG TABLET PO SCH (16:57)
[2020-05-21] MEDS: Furosemide 40 MG/4 ML VIAL IVP SCH (16:58)
[2020-05-21] MEDS: Latanoprost 2.5 ML BOTTLE BOTH EYES SCH (21:19)
[2020-05-22 04:49] LABS: Potassium 4.6 mEq/L (3.5-5.1)
[2020-05-22 05:39] LABS: ABG Base Excess 20 mEq/L (-2 to 3); ABG HCO3 51 mEq/L (21-27); ABG Oxygen Saturation 98 % (95-98); ABG PCO2 106 mmHg (35-45); ABG PH 7.29 pH Units (7.32-7.45); ABG PO2 129 mmHg (85-104); ABG TCO2 > 50 mEq/L (20-26); Blood Gas Modality ST
[2020-05-22] MEDS: Furosemide 40 MG/4 ML VIAL IVP SCH ×2 (05:59→16:17)
[2020-05-22] MEDS: Ascorbic Acid 500 MG TABLET PO SCH (05:59)
[2020-05-22 06:09] LABS: Hematocrit 34.1 % (35.3-44.9); Hemoglobin 9.5 g/dL (11.5-15.4); Mean Corpuscular HGB Conc 27.9 g/dL (31.6-35.5); Mean Corpuscular Hemoglobin 27.8 pg (28.0-33.3); Mean Corpuscular Volume 99.7 fL (83.0-100.0); Mean Platelet Volume 11.3 fL (9.4-12.4); Platelet Count 145 K/mcL (140-400); Red Blood Count 3.42 M/mcL (3.82-4.97); Red Cell Distribution Width 14.7 % (11.5-14.5); White Blood Count 7.2 K/mcL (4.3-11.1)
[2020-05-22 06:37] LABS: Calcium 9.1 mg/dL (8.6-10.3); Potassium 4.6 mEq/L (3.5-5.1)
[2020-05-22] MEDS: Insulin LISPRO 300 UNITS/3 ML VIAL SQ SCH ×4 (07:43→20:29)
[2020-05-22] MEDS: Levothyroxine 25 MCG TABLET PO SCH (09:20)
[2020-05-22] MEDS: Insulin DETEMIR 100 UNIT/ML X5UNITS SQ SCH ×2 (09:20→20:29)
[2020-05-22] MEDS: Gabapentin 300 MG CAPSULE PO SCH ×3 (09:20→20:28)
[2020-05-22] MEDS: Artificial Tears SOLN 15 ML BOTTLE BOTH EYES SCH ×4 (09:22→20:28)
[2020-05-22] MEDS: Nystatin POWDER 30 GM BOTTLE TP SCH ×3 (09:23→20:29)
[2020-05-22] MEDS: *HR* Rivaroxaban 10 MG TABLET PO SCH (16:16)
[2020-05-22] MEDS: Acetaminophen 325 MG TABLET PO PRN (16:23)
[2020-05-22] MEDS: Latanoprost 2.5 ML BOTTLE BOTH EYES SCH (20:28)
[2020-05-23] MEDS: Furosemide 40 MG/4 ML VIAL IVP SCH (05:18)
[2020-05-23] MEDS: Ascorbic Acid 500 MG TABLET PO SCH (05:19)
[2020-05-23 06:24] LABS: Mean Corpuscular Volume 102.7 fL (83.0-100.0); Red Cell Distribution Width 14.7 % (11.5-14.5)
[2020-05-23 06:26] LABS: Basophils % 0.2 %; Hematocrit 33.8 % (35.3-44.9); Hemoglobin 9.2 g/dL (11.5-15.4); Immature Granulocytes % 0.2 % (0-4); Immature Platelets 9.7 % (1.1-6.1); Lymphocytes % 9.8 %; Mean Corpuscular HGB Conc 27.2 g/dL (31.6-35.5); Mean Platelet Volume 11.3 fL (9.4-12.4); Monocytes # 0.5 K/mcL (0.0-1.3); Monocytes % 5.5 %; Platelet Count 122 K/mcL (140-400); Red Blood Count 3.29 M/mcL (3.82-4.97); Segmented Neutrophils % 84.3 %; White Blood Count 9.7 K/mcL (4.3-11.1)
[2020-05-23 06:36] LABS: Neutrophils # 8.2 K/mcL (1.6-8.9)
[2020-05-23 06:41] LABS: BUN/Creatinine Ratio 48 (6-26); Blood Urea Nitrogen 48 mg/dL (8-23); Calcium 9.3 mg/dL (8.6-10.3); Carbon Dioxide 44 mEq/L (23-29); Chloride 95 mEq/L (98-107); Glucose 49 mg/dL (70-105); Osmolality,Calculated 306 (280-300); Potassium 4.5 mEq/L (3.5-5.1); Sodium 143 mEq/L (136-145); eGFR For African Americans > 60 (> 60); eGFR For Non-African Americans 56 (> 60)
[2020-05-23 06:55] LABS: Hypochromasia Present (Not Present)
[2020-05-23 06:57] LABS: Polychromasia 1+ (Not Present)
[2020-05-23 07:22] VITALS: BP 115/52
[2020-05-23] MEDS: Insulin LISPRO 300 UNITS/3 ML VIAL SQ SCH ×2 (07:56→11:47)
[2020-05-23] MEDS: Gabapentin 300 MG CAPSULE PO SCH (07:56)
[2020-05-23] MEDS: Levothyroxine 25 MCG TABLET PO SCH (07:56)
[2020-05-23] MEDS: Nystatin POWDER 30 GM BOTTLE TP SCH (07:57)
[2020-05-23] MEDS: Artificial Tears SOLN 15 ML BOTTLE BOTH EYES SCH (07:58)
[2020-05-23] MEDS: Insulin DETEMIR 100 UNIT/ML X5UNITS SQ SCH (08:06)
[2020-05-23] MEDS: Acetaminophen 325 MG TABLET PO PRN (12:26)
== END 2020-05-23 13:15 | DRG 291 ==
LOC: 2ANU 12:43 → EMEROOARM 12:43 → 2ANU 17:12 → SUATTDRO 05-19 14:18
PROVIDERS: ADMIT Internal Medicine; ATTEND Student in an Organized Health Care Education/Training Program

== ENCOUNTER 2020-06-27 23:06 | Inpatient (IN) ==
[2020-06-28] MEDS ORDERED: Ipratropium/Albuterol Neb 3 ML IH ONE (00:07)
[2020-06-28 00:24] LABS: INR 2.5; Prothrombin Time 28.1 Seconds (9.4-12.1)
[2020-06-28 00:27] LABS: Activated Partial Thrombo Time 42.7 Seconds (26.0-36.0)
[2020-06-28 00:31] LABS: BUN/Creatinine Ratio 22 (6-26); Blood Urea Nitrogen 25 mg/dL (8-23); Calcium 9.1 mg/dL (8.6-10.3); Carbon Dioxide 32 mEq/L (23-29); Chloride 101 mEq/L (98-107); Glucose 175 mg/dL (70-105); Osmolality,Calculated 299 (280-300); Potassium 5.1 mEq/L (3.5-5.1); Sodium 140 mEq/L (136-145); eGFR For African Americans 57 (> 60); eGFR For Non-African Americans 47 (> 60)
[2020-06-28 00:33] LABS: Troponin I < 0.03 ng/mL (< 0.04)
[2020-06-28 01:15] LABS: Adenovirus Not Detected (Not Detect)
[2020-06-28 01:16] LABS: Bordetella Pertussis Not Detected (Not Detect); Chlamydophila pneumoniae Not Detected (Not Detect); Coronavirus 229E Not Detected (Not Detect); Coronavirus HKU1 Not Detected (Not Detect); Coronavirus NL63 Not Detected (Not Detect); Coronavirus OC43 Not Detected (Not Detect); Human Metapneumovirus Not Detected (Not Detect); Human Rhinovirus/Enterovirus Not Detected (Not Detect); Influenza A Subtype 2009 H1 Not Detected (Not Detect); Influenza B Not Detected (Not Detect); Mycoplasma pneumoniae Not Detected (Not Detect); Parainfluenza Virus 1 Not Detected (Not Detect); Parainfluenza Virus 2 Not Detected (Not Detect); Parainfluenza Virus 3 Not Detected (Not Detect); Parainfluenza Virus 4 Not Detected (Not Detect); Respiratory Syncytial Virus Not Detected (Not Detect); SARS-CoV-2 Not Detected (Not Detect)
[2020-06-28 02:00] LABS: VBG HCO3 37 mEq/L (21-27); VBG PCO2 90 mmHg (41-51); VBG PH 7.22 pH Units (7.32-7.42); VBG PO2 56 mmHg (25-50)
[2020-06-28 02:00] LABS: Basophils # 0.1 K/mcL (0.0-0.2); Basophils % 0.6 %; Eosinophils # 0.3 K/mcL (0.0-0.6); Eosinophils % 3.5 %; Hematocrit 32.9 % (35.3-44.9); Immature Granulocytes % 0.3 % (0-4); Lymphocytes # 1.2 K/mcL (0.6-4.6); Lymphocytes % 14.1 %; Mean Corpuscular HGB Conc 27.4 g/dL (31.6-35.5); Mean Corpuscular Hemoglobin 28.1 pg (28.0-33.3); Mean Corpuscular Volume 102.8 fL (83.0-100.0); Monocytes % 10.8 %; Neutrophils # 6.2 K/mcL (1.6-8.9); Platelet Count 190 K/mcL (140-400); Red Cell Distribution Width 15.2 % (11.5-14.5); Segmented Neutrophils % 70.7 %; White Blood Count 8.8 K/mcL (4.3-11.1)
[2020-06-28 02:15] LABS: Platelet Estimate Normal (Normal)
[2020-06-28] MEDS ORDERED: Naloxone 0.4 MG/ML INJ IVP PRN (02:30)
[2020-06-28] MEDS: Furosemide 40 MG/4 ML VIAL IVP SCH ×3 (03:26→20:52)
[2020-06-28] MEDS ORDERED: Albuterol 2.5 MG/3 ML NEBULIZER IH PRN (05:34)
[2020-06-28] MEDS ORDERED: D5% in Water 1,000 ML IVC PRN (05:54)
[2020-06-28] MEDS ORDERED: Dextrose Gel 15 GM/37.5 ML TUBE PO PRN ×2 (05:54)
[2020-06-28] MEDS ORDERED: *HR* Dextrose 50 % in Water (Vial) 50 ML VIAL IVP PRN (05:54)
[2020-06-28] MEDS: Levothyroxine 25 MCG TABLET PO SCH (06:11)
[2020-06-28] MEDS: Ascorbic Acid 500 MG TABLET PO SCH (06:11)
[2020-06-28] MEDS: Budesonide/Formoterol 160/4.5 1 PUFF INH IH SCH ×2 (08:02→19:42)
[2020-06-28] MEDS: Insulin LISPRO 300 UNITS/3 ML VIAL SQ SCH ×5 (08:56→20:58)
[2020-06-28] MEDS ORDERED: Gabapentin 300 MG CAPSULE PO SCH ×2 (09:00→21:00)
[2020-06-28 10:06] LABS: ABG Base Excess 10 mEq/L (-2 to 3); ABG HCO3 41 mEq/L (21-27); ABG Oxygen Saturation 97 % (95-98); ABG PCO2 95 mmHg (35-45); ABG PH 7.24 pH Units (7.32-7.45); ABG PO2 109 mmHg (85-104); ABG TCO2 43 mEq/L (20-26)
[2020-06-28] MEDS: Nystatin POWDER 30 GM BOTTLE TP SCH ×3 (11:08→20:53)
[2020-06-28] MEDS ORDERED: Insulin LISPRO 300 UNITS/3 ML VIAL SQ SCH ×2 (11:30→21:00)
[2020-06-28 14:45] LABS: ABG Base Excess 10 mEq/L (-2 to 3); ABG HCO3 37 mEq/L (21-27); ABG Oxygen Saturation 91 % (95-98); ABG PCO2 70 mmHg (35-45); ABG PH 7.34 pH Units (7.32-7.45); ABG PO2 67 mmHg (85-104); ABG TCO2 40 mEq/L (20-26); Blood Gas Pressure Support 14 cm H2O
[2020-06-28] MEDS: *HR* Rivaroxaban 10 MG TABLET PO SCH (17:06)
[2020-06-28] MEDS: Latanoprost 2.5 ML BOTTLE BOTH EYES SCH (20:52)
[2020-06-28] MEDS: Acetaminophen 325 MG TABLET PO SCH (20:52)
[2020-06-28] MEDS: Insulin DETEMIR 100 UNIT/ML X5UNITS SQ SCH (20:53)
[2020-06-29] MEDS: Ascorbic Acid 500 MG TABLET PO SCH (06:04)
[2020-06-29] MEDS: Levothyroxine 25 MCG TABLET PO SCH (06:04)
[2020-06-29 07:15] LABS: Basophils % 0.8 %; Immature Granulocytes % 0.3 % (0-4); Mean Corpuscular HGB Conc 27.8 g/dL (31.6-35.5); Red Cell Distribution Width 15.4 % (11.5-14.5)
[2020-06-29 07:17] LABS: Basophils # 0.1 K/mcL (0.0-0.2); Eosinophils % 0.1 %; Hematocrit 30.9 % (35.3-44.9); Hemoglobin 8.6 g/dL (11.5-15.4); Lymphocytes # 1.2 K/mcL (0.6-4.6); Lymphocytes % 13.5 %; Mean Corpuscular Hemoglobin 29.1 pg (28.0-33.3); Mean Corpuscular Volume 104.4 fL (83.0-100.0); Mean Platelet Volume 11.9 fL (9.4-12.4); Monocytes # 1.1 K/mcL (0.0-1.3); Monocytes % 11.9 %; Neutrophils # 6.5 K/mcL (1.6-8.9); Platelet Count 169 K/mcL (140-400); Red Blood Count 2.96 M/mcL (3.82-4.97); Segmented Neutrophils % 73.4 %; White Blood Count 8.9 K/mcL (4.3-11.1)
[2020-06-29 07:34] LABS: Albumin 3.5 g/dL (3.5-5.7); Bilirubin,Direct 0.2 mg/dL (0.0-0.2); Bilirubin,Indirect 0.3 mg/dL (0.0-1.0); Bilirubin,Total 0.5 mg/dL (0.3-1.0); Globulin 3.4 g/dL (2.4-3.5); Total Protein 6.9 g/dL (6.4-8.9)
[2020-06-29 07:36] LABS: Calcium 9.1 mg/dL (8.6-10.3); Magnesium 2.2 mg/dL (1.6-2.6); Phosphorous 4.2 mg/dL (2.7-4.5); Potassium 4.8 mEq/L (3.5-5.1)
[2020-06-29 07:52] LABS: Platelet Estimate Normal (Normal)
[2020-06-29 07:53] LABS: Anisocytosis 1+ (Not Present)
[2020-06-29] MEDS: Insulin LISPRO 300 UNITS/3 ML VIAL SQ SCH ×7 (10:06→21:02)
[2020-06-29] MEDS: Nystatin POWDER 30 GM BOTTLE TP SCH ×3 (10:08→21:03)
[2020-06-29] MEDS: Furosemide 40 MG/4 ML VIAL IVP SCH ×2 (10:08→21:02)
[2020-06-29] MEDS: Budesonide/Formoterol 160/4.5 1 PUFF INH IH SCH ×2 (10:26→19:52)
[2020-06-29] MEDS: *HR* Rivaroxaban 10 MG TABLET PO SCH (16:43)
[2020-06-29] MEDS: Acetaminophen 325 MG TABLET PO SCH (21:02)
[2020-06-29] MEDS: Latanoprost 2.5 ML BOTTLE BOTH EYES SCH (21:03)
[2020-06-30 01:45] LABS: Hematocrit 30.9 % (35.3-44.9); Hemoglobin 8.7 g/dL (11.5-15.4)
[2020-06-30 02:04] LABS: Calcium 9.1 mg/dL (8.6-10.3); Magnesium 2.2 mg/dL (1.6-2.6); Phosphorous 4.6 mg/dL (2.7-4.5); Potassium 4.9 mEq/L (3.5-5.1)
[2020-06-30 03:15] LABS: ABG Base Excess 8 mEq/L (-2 to 3); ABG HCO3 37 mEq/L (21-27); ABG Oxygen Saturation 88 % (95-98); ABG PCO2 86 mmHg (35-45); ABG PH 7.24 pH Units (7.32-7.45); ABG PO2 67 mmHg (85-104); ABG TCO2 40 mEq/L (20-26); Blood Gas Pressure Support 8 cm H2O
[2020-06-30] MEDS: Levothyroxine 25 MCG TABLET PO SCH (05:08)
[2020-06-30] MEDS: Ascorbic Acid 500 MG TABLET PO SCH (05:08)
[2020-06-30 05:12] LABS: ABG Base Excess 10 mEq/L (-2 to 3); ABG HCO3 40 mEq/L (21-27); ABG Oxygen Saturation 93 % (95-98); ABG PCO2 98 mmHg (35-45); ABG PH 7.22 pH Units (7.32-7.45); ABG PO2 87 mmHg (85-104); ABG TCO2 43 mEq/L (20-26); Blood Gas VT 450 cc
[2020-06-30] MEDS: Insulin LISPRO 300 UNITS/3 ML VIAL SQ SCH ×7 (08:16→20:25)
[2020-06-30 08:31] LABS: ABG Base Excess 9 mEq/L (-2 to 3); ABG HCO3 38 mEq/L (21-27); ABG Oxygen Saturation 90 % (95-98); ABG PCO2 83 mmHg (35-45); ABG PH 7.27 pH Units (7.32-7.45); ABG PO2 69 mmHg (85-104); ABG TCO2 41 mEq/L (20-26)
[2020-06-30] MEDS: Nystatin POWDER 30 GM BOTTLE TP SCH ×3 (09:08→20:06)
[2020-06-30] MEDS: Furosemide 40 MG/4 ML VIAL IVP SCH ×2 (09:08→20:08)
[2020-06-30] MEDS: Budesonide/Formoterol 160/4.5 1 PUFF INH IH SCH ×2 (10:31→19:49)
[2020-06-30 11:45] LABS: ABG Base Excess 9 mEq/L (-2 to 3); ABG HCO3 38 mEq/L (21-27); ABG Oxygen Saturation 98 % (95-98); ABG PCO2 82 mmHg (35-45); ABG PH 7.28 pH Units (7.32-7.45); ABG PO2 118 mmHg (85-104); ABG TCO2 41 mEq/L (20-26)
[2020-06-30] MEDS: Miconazole 2% ointment 141 APPL/141 GM TUBE TP SCH (13:12)
[2020-06-30 16:49] LABS: ABG Base Excess 9 mEq/L (-2 to 3); ABG HCO3 38 mEq/L (21-27); ABG Oxygen Saturation 97 % (95-98); ABG PCO2 85 mmHg (35-45); ABG PH 7.26 pH Units (7.32-7.45); ABG PO2 113 mmHg (85-104); ABG TCO2 41 mEq/L (20-26); Blood Gas VT 500 cc
[2020-06-30] MEDS: *HR* Rivaroxaban 10 MG TABLET PO SCH (17:41)
[2020-06-30] MEDS: Latanoprost 2.5 ML BOTTLE BOTH EYES SCH (20:25)
[2020-06-30] MEDS: Acetaminophen 325 MG TABLET PO SCH (20:25)
[2020-07-01 02:53] LABS: Red Cell Distribution Width 15.7 % (11.5-14.5)
[2020-07-01 02:55] LABS: Basophils # 0.1 K/mcL (0.0-0.2); Basophils % 0.4 %; Eosinophils % 0.1 %; Hematocrit 31.8 % (35.3-44.9); Hemoglobin 8.7 g/dL (11.5-15.4); Immature Granulocytes % 0.5 % (0-4); Immature Platelets 10.6 % (1.1-6.1); Lymphocytes % 6.2 %; Mean Corpuscular HGB Conc 27.4 g/dL (31.6-35.5); Mean Corpuscular Volume 102.3 fL (83.0-100.0); Mean Platelet Volume 12.3 fL (9.4-12.4); Monocytes # 1.4 K/mcL (0.0-1.3); Monocytes % 8.9 %; Neutrophils # 12.8 K/mcL (1.6-8.9); Platelet Count 183 K/mcL (140-400); Red Blood Count 3.11 M/mcL (3.82-4.97); Segmented Neutrophils % 83.9 %; White Blood Count 15.3 K/mcL (4.3-11.1)
[2020-07-01 03:01] LABS: Calcium 8.9 mg/dL (8.6-10.3); Magnesium 2.3 mg/dL (1.6-2.6); Phosphorous 5.2 mg/dL (2.7-4.5); Potassium 5.4 mEq/L (3.5-5.1)
[2020-07-01 03:32] LABS: ABG Base Excess 9 mEq/L (-2 to 3); ABG HCO3 39 mEq/L (21-27); ABG Oxygen Saturation 99 % (95-98); ABG PCO2 95 mmHg (35-45); ABG PH 7.22 pH Units (7.32-7.45); ABG PO2 162 mmHg (85-104); ABG TCO2 42 mEq/L (20-26); Blood Gas Modality BiLevel
[2020-07-01 03:34] LABS: Platelet Estimate Normal (Normal)
[2020-07-01] MEDS: Levothyroxine 25 MCG TABLET PO SCH (05:55)
[2020-07-01] MEDS: Ascorbic Acid 500 MG TABLET PO SCH (05:57)
[2020-07-01] MEDS: Insulin LISPRO 300 UNITS/3 ML VIAL SQ SCH ×7 (08:13→23:36)
[2020-07-01] MEDS: Budesonide/Formoterol 160/4.5 1 PUFF INH IH SCH ×2 (09:13→19:34)
[2020-07-01] MEDS: Nystatin POWDER 30 GM BOTTLE TP SCH ×3 (09:14→20:06)
[2020-07-01] MEDS: Miconazole 2% ointment 141 APPL/141 GM TUBE TP SCH (09:14)
[2020-07-01] MEDS: Furosemide 40 MG/4 ML VIAL IVP SCH ×2 (09:18→20:05)
[2020-07-01 09:37] LABS: ABG Base Excess 7 mEq/L (-2 to 3); ABG HCO3 38 mEq/L (21-27); ABG Oxygen Saturation 99 % (95-98); ABG PCO2 96 mmHg (35-45); ABG PH 7.21 pH Units (7.32-7.45); ABG PO2 170 mmHg (85-104); ABG TCO2 41 mEq/L (20-26)
[2020-07-01] MEDS: MethylPREDNISolone 40 MG/ML VIAL IVP SCH ×2 (10:49→17:46)
[2020-07-01] MEDS: Ipratropium/Albuterol Neb 3 ML IH SCH ×5 (10:53→23:05)
[2020-07-01] MEDS ORDERED: 0.9 % Sodium Chloride 1,000 ML ONE (11:28)
[2020-07-01 11:52] LABS: ABG Base Excess 6 mEq/L (-2 to 3); ABG HCO3 37 mEq/L (21-27); ABG Oxygen Saturation 100 % (95-98); ABG PCO2 99 mmHg (35-45); ABG PH 7.18 pH Units (7.32-7.45); ABG PO2 214 mmHg (85-104); ABG TCO2 40 mEq/L (20-26)
[2020-07-01] MEDS ORDERED: *HR* FentaNYL (PF) 100 MCG/2 ML VIAL IVP ONE (12:02)
[2020-07-01] MEDS: Dexmedetomidine HCl 400 MCG/100 ML MLS IVC SCH ×2 (12:36→19:35)
[2020-07-01] MEDS ORDERED: *HR* Midazolam HCl 5 MG/5 ML VIAL IVP ONE (12:37)
[2020-07-01] MEDS ORDERED: *HR* Etomidate 20 MG/10 ML AMPUL IVP ONE (12:37)
[2020-07-01] MEDS: FentaNYL (PF) 1,000 MCG/100 ML IV.SOLN IVC SCH (12:44)
[2020-07-01] MEDS ORDERED: Furosemide 40 MG/4 ML VIAL IVP ONE (13:03)
[2020-07-01 13:12] LABS: Amorphous Sediment,Urine Few per hpf (None-Few); Bacteria,Urine Many per hpf (None-Few); Bilirubin,Urine Negative (Negative); Blood,Urine Moderate (Negative); Clarity,Urine Turbid (Clear); Color,Urine Yellow (Yellow); Glucose,Urine (UA) Normal (Normal); Ketones,Urine Negative (Negative); Leukocyte Esterase,Urine Large (Negative); Nitrite,Urine Negative (Negative); PH,Urine 6.5 pH Units (5.0-8.0); Protein,Urine 30 mg/dL (Neg-Trace); RBC,Urine 15-30 per hpf (0-3); Specific Gravity,Urine 1.016 (1.010-1.025); Squamous Epithelial Cell,Urine Few per hpf (None-Few); WBC,Urine TNTC per hpf (0-3)
[2020-07-01 15:02] LABS: ABG Base Excess 10 mEq/L (-2 to 3); ABG HCO3 33 mEq/L (21-27); ABG Oxygen Saturation 100 % (95-98); ABG PCO2 38 mmHg (35-45); ABG PH 7.55 pH Units (7.32-7.45); ABG PO2 385 mmHg (85-104); ABG TCO2 35 mEq/L (20-26); Blood Gas Modality ASSIST CONTROL; Blood Gas VT 500 cc
[2020-07-01] MEDS ORDERED: acetaZOLAMIDE 500 MG in Water for inj. (sterile) 5 ML IVP ONE (15:05)
[2020-07-01] MEDS: Piperacillin/Tazobactam 3.375 GM in 0.9 % Sodium Chloride Mini Bag 100 ML IVPB SCH ×2 (15:46→23:35)
[2020-07-01] MEDS ORDERED: Artificial Tears SOLN 15 ML BOTTLE BOTH EYES PRN (15:56)
[2020-07-01] MEDS: Pantoprazole 40 MG VIAL IVP SCH (17:46)
[2020-07-01] MEDS: Artificial Tears SOLN 15 ML BOTTLE BOTH EYES SCH ×3 (17:46→23:35)
[2020-07-01] MEDS: *HR* Rivaroxaban 10 MG TABLET PO SCH (17:57)
[2020-07-01 18:17] LABS: INR 1.4; Prothrombin Time 15.6 Seconds (9.4-12.1)
[2020-07-01 18:48] LABS: ABG Base Excess 7 mEq/L (-2 to 3); ABG HCO3 35 mEq/L (21-27); ABG Oxygen Saturation 94 % (95-98); ABG PCO2 74 mmHg (35-45); ABG PH 7.29 pH Units (7.32-7.45); ABG PO2 82 mmHg (85-104); ABG TCO2 37 mEq/L (20-26); Blood Gas Modality ASSIST CONTROL; Blood Gas VT 401 cc
[2020-07-01] MEDS: Chlorhexidine Rinse 15 ML MOUTHWASH MM SCH (20:05)
[2020-07-01] MEDS: Latanoprost 2.5 ML BOTTLE BOTH EYES SCH (20:06)
[2020-07-02] MEDS: Ipratropium/Albuterol Neb 3 ML IH SCH ×6 (03:08→23:29)
[2020-07-02] MEDS: MethylPREDNISolone 40 MG/ML VIAL IVP SCH ×3 (03:24→17:13)
[2020-07-02] MEDS: Dexmedetomidine HCl 400 MCG/100 ML MLS IVC SCH ×3 (03:27→22:05)
[2020-07-02] MEDS: Artificial Tears SOLN 15 ML BOTTLE BOTH EYES SCH ×6 (03:27→23:13)
[2020-07-02 03:47] LABS: Basophils % 0.1 %; Hematocrit 30.6 % (35.3-44.9); Hemoglobin 8.9 g/dL (11.5-15.4); Immature Granulocytes % 0.4 % (0-4); Lymphocytes # 0.7 K/mcL (0.6-4.6); Lymphocytes % 5.2 %; Mean Corpuscular HGB Conc 29.1 g/dL (31.6-35.5); Mean Corpuscular Hemoglobin 28.7 pg (28.0-33.3); Mean Corpuscular Volume 98.7 fL (83.0-100.0); Mean Platelet Volume 11.9 fL (9.4-12.4); Monocytes # 0.6 K/mcL (0.0-1.3); Monocytes % 4.6 %; Neutrophils # 12.2 K/mcL (1.6-8.9); Nucleated Red Blood Cells 0.1 /100 WBC (0); Platelet Count 178 K/mcL (140-400); Red Cell Distribution Width 15.7 % (11.5-14.5); Segmented Neutrophils % 89.7 %; White Blood Count 13.6 K/mcL (4.3-11.1)
[2020-07-02 04:06] LABS: Calcium 8.7 mg/dL (8.6-10.3); Potassium 5.2 mEq/L (3.5-5.1)
[2020-07-02 04:28] LABS: ABG Base Excess 5 mEq/L (-2 to 3); ABG HCO3 32 mEq/L (21-27); ABG Oxygen Saturation 99 % (95-98); ABG PCO2 57 mmHg (35-45); ABG PH 7.36 pH Units (7.32-7.45); ABG PO2 171 mmHg (85-104); ABG TCO2 34 mEq/L (20-26); Blood Gas Modality AF; Blood Gas VT 470 cc
[2020-07-02] MEDS: FentaNYL (PF) 1,000 MCG/100 ML IV.SOLN IVC SCH (05:56)
[2020-07-02] MEDS: Insulin LISPRO 300 UNITS/3 ML VIAL SQ SCH ×5 (06:12→23:22)
[2020-07-02] MEDS: Levothyroxine 25 MCG TABLET PO SCH (06:12)
[2020-07-02] MEDS: Ascorbic Acid 500 MG TABLET PO SCH (06:12)
[2020-07-02] MEDS: Budesonide/Formoterol 160/4.5 1 PUFF INH IH SCH ×2 (07:34→19:42)
[2020-07-02] MEDS: Piperacillin/Tazobactam 3.375 GM in 0.9 % Sodium Chloride Mini Bag 100 ML IVPB SCH ×3 (08:07→23:13)
[2020-07-02] MEDS: Pantoprazole 40 MG VIAL IVP SCH (08:08)
[2020-07-02] MEDS: Nystatin POWDER 30 GM BOTTLE TP SCH ×3 (08:09→20:10)
[2020-07-02] MEDS: Chlorhexidine Rinse 15 ML MOUTHWASH MM SCH ×2 (08:09→20:11)
[2020-07-02] MEDS: Furosemide 40 MG/4 ML VIAL IVP SCH (08:09)
[2020-07-02] MEDS: Miconazole 2% ointment 141 APPL/141 GM TUBE TP SCH (08:10)
[2020-07-02 08:51] LABS: Acinetobacter baumannii by PCR Not Detected (Not Detect); Enterobacter cloacae Cmplx PCR Not Detected (Not Detect); Enterobacteriaceae by PCR Not Detected (Not Detect); Enterococcus by PCR Not Detected (Not Detect); Escherichia coli by PCR Not Detected (Not Detect); Klebsiella oxytoca by PCR Not Detected (Not Detect); Klebsiella pneumoniae by PCR Not Detected (Not Detect); Proteus by PCR Not Detected (Not Detect); Pseudomonas aeruginosa by PCR Not Detected (Not Detect); Serratia marcescens by PCR Not Detected (Not Detect); Staphylococcus aureus by PCR DETECTED (Not Detect); Streptococcus agalactiae(B)PCR Not Detected (Not Detect); Streptococcus by PCR Not Detected (Not Detect); Streptococcus pneumoniae PCR Not Detected (Not Detect); Streptococcus pyogenes (A) PCR Not Detected (Not Detect); mecA Methicillin-Resist Gene DETECTED (Not Detect)
[2020-07-02 08:52] LABS: Candida albicans by PCR Not Detected (Not Detect); Candida glabrata by PCR Not Detected (Not Detect); Candida krusei by PCR Not Detected (Not Detect); Candida parapsilosis by PCR Not Detected (Not Detect); Candida tropicalis by PCR Not Detected (Not Detect)
[2020-07-02] MEDS ORDERED: Vancomycin 1 EACH in 0.9 % Sodium Chloride 250 ML IVPB SCH (10:00)
[2020-07-02] MEDS ORDERED: Vancomycin 2,000 MG/520 ML IV.SOLN IVPB ONE (11:00)
[2020-07-02] MEDS: *HR* Rivaroxaban 10 MG TABLET PO SCH (17:13)
[2020-07-02] MEDS: Latanoprost 2.5 ML BOTTLE BOTH EYES SCH (20:10)
[2020-07-02] MEDS ORDERED: Vancomycin 1,500 MG/265 ML IV.SOLN IVPB ONE (23:00)
[2020-07-03] MEDS: MethylPREDNISolone 40 MG/ML VIAL IVP SCH ×3 (01:23→18:57)
[2020-07-03] MEDS: Ipratropium/Albuterol Neb 3 ML IH SCH ×6 (03:17→23:28)
[2020-07-03] MEDS: Dexmedetomidine HCl 400 MCG/100 ML MLS IVC SCH ×3 (03:23→20:43)
[2020-07-03] MEDS: FentaNYL (PF) 1,000 MCG/100 ML IV.SOLN IVC SCH (03:24)
[2020-07-03] MEDS: Insulin LISPRO 300 UNITS/3 ML VIAL SQ SCH ×5 (03:24→20:18)
[2020-07-03] MEDS: Artificial Tears SOLN 15 ML BOTTLE BOTH EYES SCH ×5 (03:24→20:10)
[2020-07-03 03:40] LABS: Hematocrit 29.8 % (35.3-44.9); Red Cell Distribution Width 16.4 % (11.5-14.5)
[2020-07-03 03:42] LABS: Hemoglobin 8.7 g/dL (11.5-15.4); Immature Platelets 11.6 % (1.1-6.1); Mean Corpuscular HGB Conc 29.2 g/dL (31.6-35.5); Mean Corpuscular Hemoglobin 28.5 pg (28.0-33.3); Mean Corpuscular Volume 97.7 fL (83.0-100.0); Nucleated Red Blood Cells 0.7 /100 WBC (0); Red Blood Count 3.05 M/mcL (3.82-4.97)
[2020-07-03 03:50] LABS: Platelet Count 97 K/mcL (140-400)
[2020-07-03 03:56] LABS: ABG Base Excess 9 mEq/L (-2 to 3); ABG HCO3 35 mEq/L (21-27); ABG Oxygen Saturation 97 % (95-98); ABG PCO2 53 mmHg (35-45); ABG PH 7.43 pH Units (7.32-7.45); ABG PO2 86 mmHg (85-104); ABG TCO2 37 mEq/L (20-26); Blood Gas Modality AF; Blood Gas VT 470 cc
[2020-07-03 03:57] LABS: Calcium 8.3 mg/dL (8.6-10.3); Potassium 4.3 mEq/L (3.5-5.1)
[2020-07-03] MEDS: Ascorbic Acid 500 MG TABLET PO SCH (05:55)
[2020-07-03] MEDS: Levothyroxine 25 MCG TABLET PO SCH (05:55)
[2020-07-03 06:12] LABS: Lymphocytes # 0.8 K/mcL (0.6-4.6); Monocytes # 0.4 K/mcL (0.0-1.3); Neutrophils # 17.2 K/mcL (1.6-8.9); Platelet Estimate Slight Decrease (Normal)
[2020-07-03 06:13] LABS: Anisocytosis 1+ (Not Present); Macrocytosis Present (Not Present); Polychromasia 1+ (Not Present)
[2020-07-03] MEDS: Budesonide/Formoterol 160/4.5 1 PUFF INH IH SCH ×2 (07:26→19:34)
[2020-07-03] MEDS: Piperacillin/Tazobactam 3.375 GM in 0.9 % Sodium Chloride Mini Bag 100 ML IVPB SCH ×2 (08:35→15:49)
[2020-07-03] MEDS: Chlorhexidine Rinse 15 ML MOUTHWASH MM SCH ×2 (08:35→20:20)
[2020-07-03] MEDS: Pantoprazole 40 MG VIAL IVP SCH (08:37)
[2020-07-03] MEDS: Furosemide 40 MG in 0.9 % Sodium Chloride 50 ML IV SCH (10:38)
[2020-07-03] MEDS: Miconazole 2% ointment 141 APPL/141 GM TUBE TP SCH (10:39)
[2020-07-03] MEDS: Nystatin POWDER 30 GM BOTTLE TP SCH ×3 (10:39→20:20)
[2020-07-03] MEDS ORDERED: Perflutren Lipid Microsphere 1.3 ML in 0.9 % Sodium Chloride 8.7 ML IVP PRN (10:43)
[2020-07-03] MEDS ORDERED: *HR* Metoprolol 5 MG/5 ML VIAL IVP ONE (10:54)
[2020-07-03] MEDS: *HR* Metoprolol 5 MG/5 ML VIAL IVP SCH ×2 (11:15→11:40)
[2020-07-03 11:56] LABS: Magnesium 2.3 mg/dL (1.6-2.6); Phosphorous 3.6 mg/dL (2.7-4.5)
[2020-07-03] MEDS: *HR* Rivaroxaban 10 MG TABLET PO SCH (15:49)
[2020-07-03] MEDS: Latanoprost 2.5 ML BOTTLE BOTH EYES SCH (20:11)
[2020-07-03] MEDS: Furosemide 40 MG/4 ML VIAL IVP SCH (20:11)
[2020-07-04] MEDS: Piperacillin/Tazobactam 3.375 GM in 0.9 % Sodium Chloride Mini Bag 100 ML IVPB SCH ×4 (00:37→23:13)
[2020-07-04] MEDS: Insulin LISPRO 300 UNITS/3 ML VIAL SQ SCH ×7 (00:41→23:16)
[2020-07-04] MEDS: Artificial Tears SOLN 15 ML BOTTLE BOTH EYES SCH ×7 (00:43→23:16)
[2020-07-04] MEDS: MethylPREDNISolone 40 MG/ML VIAL IVP SCH ×3 (01:12→17:34)
[2020-07-04] MEDS: FentaNYL (PF) 1,000 MCG/100 ML IV.SOLN IVC SCH ×2 (02:27→21:25)
[2020-07-04] MEDS: Ipratropium/Albuterol Neb 3 ML IH SCH ×6 (03:31→23:34)
[2020-07-04 03:47] LABS: Basophils % 0.1 %; Nucleated Red Blood Cells 0.3 /100 WBC (0); Red Cell Distribution Width 16.5 % (11.5-14.5)
[2020-07-04 03:49] LABS: Hematocrit 31.9 % (35.3-44.9); Hemoglobin 9.2 g/dL (11.5-15.4); Immature Granulocytes % 1.8 % (0-4); Immature Platelets 10.3 % (1.1-6.1); Lymphocytes # 0.3 K/mcL (0.6-4.6); Lymphocytes % 3.1 %; Mean Corpuscular HGB Conc 28.8 g/dL (31.6-35.5); Mean Corpuscular Hemoglobin 28.3 pg (28.0-33.3); Mean Corpuscular Volume 98.2 fL (83.0-100.0); Monocytes # 0.3 K/mcL (0.0-1.3); Monocytes % 2.8 %; Neutrophils # 8.4 K/mcL (1.6-8.9); Red Blood Count 3.25 M/mcL (3.82-4.97); Segmented Neutrophils % 92.2 %; White Blood Count 9.1 K/mcL (4.3-11.1)
[2020-07-04 03:53] LABS: Platelet Count 84 K/mcL (140-400)
[2020-07-04] MEDS: Dexmedetomidine HCl 400 MCG/100 ML MLS IVC SCH ×4 (04:02→19:25)
[2020-07-04 04:05] LABS: Calcium 8.2 mg/dL (8.6-10.3); Potassium 3.7 mEq/L (3.5-5.1)
[2020-07-04 04:07] LABS: Platelet Estimate Decreased (Normal); Polychromasia 1+ (Not Present)
[2020-07-04 04:36] LABS: ABG Base Excess 12 mEq/L (-2 to 3); ABG HCO3 38 mEq/L (21-27); ABG Oxygen Saturation 97 % (95-98); ABG PCO2 55 mmHg (35-45); ABG PH 7.45 pH Units (7.32-7.45); ABG PO2 87 mmHg (85-104); ABG TCO2 39 mEq/L (20-26); Blood Gas Modality AF; Blood Gas VT 470 cc
[2020-07-04] MEDS: Levothyroxine 25 MCG TABLET PO SCH (05:28)
[2020-07-04] MEDS: Ascorbic Acid 500 MG TABLET PO SCH (05:28)
[2020-07-04] MEDS: Budesonide/Formoterol 160/4.5 1 PUFF INH IH SCH ×2 (07:20→19:33)
[2020-07-04] MEDS: Pantoprazole 40 MG VIAL IVP SCH (09:06)
[2020-07-04] MEDS: Chlorhexidine Rinse 15 ML MOUTHWASH MM SCH ×2 (09:06→21:00)
[2020-07-04] MEDS: Furosemide 40 MG in 0.9 % Sodium Chloride 50 ML IV SCH (09:08)
[2020-07-04] MEDS: Nystatin POWDER 30 GM BOTTLE TP SCH ×3 (09:09→21:02)
[2020-07-04] MEDS: Miconazole 2% ointment 141 APPL/141 GM TUBE TP SCH (09:13)
[2020-07-04] MEDS: *HR* Rivaroxaban 10 MG TABLET PO SCH (17:31)
[2020-07-04] MEDS: Insulin DETEMIR 100 UNIT/ML X5UNITS SQ SCH (21:00)
[2020-07-04] MEDS: Latanoprost 2.5 ML BOTTLE BOTH EYES SCH (21:02)
[2020-07-05] MEDS: Dexmedetomidine HCl 400 MCG/100 ML MLS IVC SCH ×7 (00:55→23:22)
[2020-07-05] MEDS: Ipratropium/Albuterol Neb 3 ML IH SCH ×6 (03:08→23:31)
[2020-07-05] MEDS: MethylPREDNISolone 40 MG/ML VIAL IVP SCH ×3 (03:15→17:46)
[2020-07-05] MEDS: Artificial Tears SOLN 15 ML BOTTLE BOTH EYES SCH ×6 (03:16→23:21)
[2020-07-05] MEDS: Insulin LISPRO 300 UNITS/3 ML VIAL SQ SCH ×6 (03:49→23:38)
[2020-07-05 04:13] LABS: Red Blood Count 3.32 M/mcL (3.82-4.97)
[2020-07-05 04:14] LABS: ABG Base Excess 15 mEq/L (-2 to 3); ABG HCO3 41 mEq/L (21-27); ABG Oxygen Saturation 94 % (95-98); ABG PCO2 60 mmHg (35-45); ABG PH 7.45 pH Units (7.32-7.45); ABG PO2 70 mmHg (85-104); ABG TCO2 43 mEq/L (20-26); Blood Gas Modality ASSIST CONTROL; Blood Gas VT 470 cc
[2020-07-05 04:15] LABS: Hematocrit 32.7 % (35.3-44.9); Hemoglobin 9.4 g/dL (11.5-15.4); Immature Granulocytes % 0.8 % (0-4); Immature Platelets 11.3 % (1.1-6.1); Lymphocytes # 0.2 K/mcL (0.6-4.6); Lymphocytes % 3.3 %; Mean Corpuscular HGB Conc 28.7 g/dL (31.6-35.5); Mean Corpuscular Hemoglobin 28.3 pg (28.0-33.3); Mean Corpuscular Volume 98.5 fL (83.0-100.0); Mean Platelet Volume 13.4 fL (9.4-12.4); Monocytes # 0.2 K/mcL (0.0-1.3); Monocytes % 3.9 %; Neutrophils # 5.7 K/mcL (1.6-8.9); Red Cell Distribution Width 16.6 % (11.5-14.5); White Blood Count 6.2 K/mcL (4.3-11.1)
[2020-07-05 04:19] LABS: Platelet Count 76 K/mcL (140-400)
[2020-07-05 04:31] LABS: Potassium 3.5 mEq/L (3.5-5.1)
[2020-07-05 05:09] LABS: Anisocytosis 1+ (Not Present)
[2020-07-05 05:10] LABS: Macrocytosis Present (Not Present); Platelet Estimate Decreased (Normal); Polychromasia 1+ (Not Present)
[2020-07-05] MEDS: Ascorbic Acid 500 MG TABLET PO SCH (05:18)
[2020-07-05] MEDS: Levothyroxine 25 MCG TABLET PO SCH (05:18)
[2020-07-05] MEDS: Budesonide/Formoterol 160/4.5 1 PUFF INH IH SCH ×2 (07:42→19:39)
[2020-07-05] MEDS: Piperacillin/Tazobactam 3.375 GM in 0.9 % Sodium Chloride Mini Bag 100 ML IVPB SCH ×3 (07:43→23:38)
[2020-07-05] MEDS: Pantoprazole 40 MG VIAL IVP SCH (07:43)
[2020-07-05] MEDS: Furosemide 40 MG in 0.9 % Sodium Chloride 50 ML IV SCH (07:44)
[2020-07-05] MEDS: Chlorhexidine Rinse 15 ML MOUTHWASH MM SCH ×2 (07:45→20:37)
[2020-07-05] MEDS: Miconazole 2% ointment 141 APPL/141 GM TUBE TP SCH (07:50)
[2020-07-05] MEDS: Nystatin POWDER 30 GM BOTTLE TP SCH ×3 (07:51→20:38)
[2020-07-05] MEDS: FentaNYL (PF) 1,000 MCG/100 ML IV.SOLN IVC SCH ×3 (09:42→23:21)
[2020-07-05] MEDS: *HR* Rivaroxaban 10 MG TABLET PO SCH (17:46)
[2020-07-05] MEDS: Insulin DETEMIR 100 UNIT/ML X5UNITS SQ SCH (20:37)
[2020-07-05] MEDS: Latanoprost 2.5 ML BOTTLE BOTH EYES SCH (20:38)
[2020-07-06] MEDS: Ipratropium/Albuterol Neb 3 ML IH SCH ×6 (03:13→23:47)
[2020-07-06] MEDS: Artificial Tears SOLN 15 ML BOTTLE BOTH EYES SCH ×6 (03:30→23:15)
[2020-07-06] MEDS: MethylPREDNISolone 40 MG/ML VIAL IVP SCH ×3 (03:31→17:59)
[2020-07-06] MEDS: Dexmedetomidine HCl 400 MCG/100 ML MLS IVC SCH ×6 (03:31→23:12)
[2020-07-06 04:02] LABS: Hematocrit 33.8 % (35.3-44.9); Hemoglobin 9.9 g/dL (11.5-15.4); Mean Corpuscular HGB Conc 29.3 g/dL (31.6-35.5); Mean Corpuscular Hemoglobin 28.4 pg (28.0-33.3); Mean Corpuscular Volume 96.8 fL (83.0-100.0); Red Blood Count 3.49 M/mcL (3.82-4.97); Red Cell Distribution Width 16.3 % (11.5-14.5)
[2020-07-06 04:04] LABS: Immature Granulocytes % 0.5 % (0-4); Immature Platelets 11.1 % (1.1-6.1); Lymphocytes # 0.2 K/mcL (0.6-4.6); Lymphocytes % 3.5 %; Mean Platelet Volume 13.3 fL (9.4-12.4); Monocytes # 0.3 K/mcL (0.0-1.3); Monocytes % 4.7 %; Neutrophils # 5.4 K/mcL (1.6-8.9); Platelet Count 66 K/mcL (140-400); Segmented Neutrophils % 91.3 %; White Blood Count 5.9 K/mcL (4.3-11.1)
[2020-07-06 04:13] LABS: Calcium 8.1 mg/dL (8.6-10.3); Magnesium 2.4 mg/dL (1.6-2.6); Phosphorous 3.3 mg/dL (2.7-4.5); Potassium 3.2 mEq/L (3.5-5.1)
[2020-07-06 04:32] LABS: ABG Base Excess 17 mEq/L (-2 to 3); ABG HCO3 42 mEq/L (21-27); ABG Oxygen Saturation 95 % (95-98); ABG PCO2 52 mmHg (35-45); ABG PH 7.52 pH Units (7.32-7.45); ABG PO2 72 mmHg (85-104); ABG TCO2 44 mEq/L (20-26); Blood Gas Modality ASSIST CONTROL; Blood Gas VT 470 cc
[2020-07-06] MEDS: Insulin LISPRO 300 UNITS/3 ML VIAL SQ SCH ×5 (04:35→20:23)
[2020-07-06] MEDS: Levothyroxine 25 MCG TABLET PO SCH (05:25)
[2020-07-06] MEDS: Ascorbic Acid 500 MG TABLET PO SCH (05:25)
[2020-07-06] MEDS: Budesonide/Formoterol 160/4.5 1 PUFF INH IH SCH ×2 (07:10→20:06)
[2020-07-06] MEDS: Chlorhexidine Rinse 15 ML MOUTHWASH MM SCH ×2 (08:20→20:24)
[2020-07-06] MEDS: Piperacillin/Tazobactam 3.375 GM in 0.9 % Sodium Chloride Mini Bag 100 ML IVPB SCH ×3 (08:21→23:11)
[2020-07-06] MEDS: Pantoprazole 40 MG VIAL IVP SCH (08:32)
[2020-07-06] MEDS: Nystatin POWDER 30 GM BOTTLE TP SCH ×3 (09:23→20:26)
[2020-07-06] MEDS: Miconazole 2% ointment 141 APPL/141 GM TUBE TP SCH (09:24)
[2020-07-06] MEDS: Furosemide 40 MG in 0.9 % Sodium Chloride 50 ML IV SCH (09:43)
[2020-07-06] MEDS ORDERED: Potassium Chloride 40 MEQ, Lidocaine 1% 2 ML in 0.9 % Sodium Chloride 500 ML IVPB ONE (10:55)
[2020-07-06] MEDS: FentaNYL (PF) 1,000 MCG/100 ML IV.SOLN IVC SCH (13:11)
[2020-07-06] MEDS: *HR* Rivaroxaban 10 MG TABLET PO SCH (16:04)
[2020-07-06] MEDS: Latanoprost 2.5 ML BOTTLE BOTH EYES SCH (20:23)
[2020-07-06] MEDS: Insulin DETEMIR 100 UNIT/ML X5UNITS SQ SCH (20:25)
[2020-07-07] MEDS: FentaNYL (PF) 1,000 MCG/100 ML IV.SOLN IVC SCH (00:09)
[2020-07-07] MEDS: Insulin LISPRO 300 UNITS/3 ML VIAL SQ SCH ×6 (00:09→19:46)
[2020-07-07] MEDS: MethylPREDNISolone 40 MG/ML VIAL IVP SCH ×3 (01:26→17:10)
[2020-07-07] MEDS: Artificial Tears SOLN 15 ML BOTTLE BOTH EYES SCH ×5 (03:16→19:31)
[2020-07-07] MEDS: Ipratropium/Albuterol Neb 3 ML IH SCH ×6 (03:21→23:23)
[2020-07-07 04:23] LABS: Hematocrit 33.5 % (35.3-44.9); Hemoglobin 9.9 g/dL (11.5-15.4); Immature Granulocytes % 0.4 % (0-4); Immature Platelets 12.2 % (1.1-6.1); Lymphocytes # 0.2 K/mcL (0.6-4.6); Lymphocytes % 3.9 %; Mean Corpuscular HGB Conc 29.6 g/dL (31.6-35.5); Mean Corpuscular Hemoglobin 28.4 pg (28.0-33.3); Mean Platelet Volume 14.1 fL (9.4-12.4); Monocytes # 0.3 K/mcL (0.0-1.3); Monocytes % 4.9 %; Neutrophils # 5.2 K/mcL (1.6-8.9); Platelet Count 63 K/mcL (140-400); Red Blood Count 3.49 M/mcL (3.82-4.97); Red Cell Distribution Width 16.4 % (11.5-14.5); Segmented Neutrophils % 90.8 %; White Blood Count 5.7 K/mcL (4.3-11.1)
[2020-07-07] MEDS: Dexmedetomidine HCl 400 MCG/100 ML MLS IVC SCH ×4 (04:23→19:29)
[2020-07-07 04:41] LABS: BUN/Creatinine Ratio 55 (6-26); Blood Urea Nitrogen 59 mg/dL (8-23); Calcium 7.7 mg/dL (8.6-10.3); Carbon Dioxide 37 mEq/L (23-29); Chloride 102 mEq/L (98-107); Glucose 267 mg/dL (70-105); Osmolality,Calculated 330 (280-300); Potassium 2.9 mEq/L (3.5-5.1); Sodium 147 mEq/L (136-145); eGFR For African Americans > 60 (> 60); eGFR For Non-African Americans 51 (> 60)
[2020-07-07 04:42] LABS: Magnesium 2.4 mg/dL (1.6-2.6); Phosphorous 2.7 mg/dL (2.7-4.5)
[2020-07-07 05:12] LABS: ABG Base Excess 16 mEq/L (-2 to 3); ABG HCO3 41 mEq/L (21-27); ABG Oxygen Saturation 98 % (95-98); ABG PCO2 50 mmHg (35-45); ABG PH 7.52 pH Units (7.32-7.45); ABG PO2 95 mmHg (85-104); ABG TCO2 42 mEq/L (20-26); Blood Gas Modality ASSIST CONTROL; Blood Gas VT 470 cc
[2020-07-07] MEDS: Ascorbic Acid 500 MG TABLET PO SCH (06:14)
[2020-07-07] MEDS: Levothyroxine 25 MCG TABLET PO SCH (06:14)
[2020-07-07] MEDS: Budesonide/Formoterol 160/4.5 1 PUFF INH IH SCH ×2 (07:25→19:44)
[2020-07-07] MEDS ORDERED: Potassium Chloride Elixir 20 MEQ/15 ML UDC GTUBE ONE (07:39)
[2020-07-07] MEDS: Piperacillin/Tazobactam 3.375 GM in 0.9 % Sodium Chloride Mini Bag 100 ML IVPB SCH ×2 (07:43→15:52)
[2020-07-07] MEDS: Pantoprazole 40 MG VIAL IVP SCH (07:46)
[2020-07-07] MEDS: Chlorhexidine Rinse 15 ML MOUTHWASH MM SCH ×2 (07:46→19:29)
[2020-07-07] MEDS: Miconazole 2% ointment 141 APPL/141 GM TUBE TP SCH (08:01)
[2020-07-07] MEDS: Furosemide 40 MG in 0.9 % Sodium Chloride 50 ML IV SCH (08:18)
[2020-07-07 08:20] LABS: Calcium 7.9 mg/dL (8.6-10.3); Potassium 2.9 mEq/L (3.5-5.1)
[2020-07-07] MEDS: Nystatin POWDER 30 GM BOTTLE TP SCH ×3 (09:32→19:30)
[2020-07-07 13:51] LABS: Calcium 8.2 mg/dL (8.6-10.3); Potassium 3.1 mEq/L (3.5-5.1)
[2020-07-07] MEDS ORDERED: acetaZOLAMIDE 250 MG in Water for inj. (sterile) 5 ML IVP ONE (15:30)
[2020-07-07] MEDS ORDERED: Potassium Chloride 40 MEQ, Lidocaine 1% 2 ML in 0.9 % Sodium Chloride 500 ML IVPB ONE (16:24)
[2020-07-07] MEDS: *HR* Rivaroxaban 10 MG TABLET PO SCH (17:10)
[2020-07-07] MEDS: Latanoprost 2.5 ML BOTTLE BOTH EYES SCH (19:30)
[2020-07-07] MEDS ORDERED: Insulin DETEMIR 100 UNIT/ML X5UNITS SQ SCH (21:00)
[2020-07-07 21:55] LABS: ABG Base Excess 11 mEq/L (-2 to 3); ABG HCO3 38 mEq/L (21-27); ABG Oxygen Saturation 99 % (95-98); ABG PCO2 67 mmHg (35-45); ABG PH 7.37 pH Units (7.32-7.45); ABG PO2 159 mmHg (85-104); ABG TCO2 40 mEq/L (20-26)
[2020-07-08] MEDS: Artificial Tears SOLN 15 ML BOTTLE BOTH EYES SCH ×7 (00:10→23:42)
[2020-07-08] MEDS: Piperacillin/Tazobactam 3.375 GM in 0.9 % Sodium Chloride Mini Bag 100 ML IVPB SCH ×4 (00:10→23:43)
[2020-07-08] MEDS: Insulin LISPRO 300 UNITS/3 ML VIAL SQ SCH ×7 (00:10→23:42)
[2020-07-08] MEDS: Dexmedetomidine HCl 400 MCG/100 ML MLS IVC SCH ×5 (00:48→22:47)
[2020-07-08] MEDS: MethylPREDNISolone 40 MG/ML VIAL IVP SCH ×2 (01:39→08:37)
[2020-07-08] MEDS ORDERED: acetaZOLAMIDE 250 MG in Water for inj. (sterile) 5 ML IVP ONE (03:30)
[2020-07-08] MEDS: Ipratropium/Albuterol Neb 3 ML IH SCH ×6 (03:36→23:26)
[2020-07-08 04:15] LABS: ABG Base Excess 11 mEq/L (-2 to 3); ABG HCO3 38 mEq/L (21-27); ABG Oxygen Saturation 97 % (95-98); ABG PCO2 66 mmHg (35-45); ABG PH 7.37 pH Units (7.32-7.45); ABG PO2 97 mmHg (85-104); ABG TCO2 40 mEq/L (20-26)
[2020-07-08 04:52] LABS: VBG Ionized Calcium 1.02 mmol/L (1.15-1.35)
[2020-07-08 05:05] LABS: Red Cell Distribution Width 16.1 % (11.5-14.5)
[2020-07-08 05:06] LABS: BUN/Creatinine Ratio 54 (6-26); Blood Urea Nitrogen 53 mg/dL (8-23); Calcium 7.5 mg/dL (8.6-10.3); Carbon Dioxide 37 mEq/L (23-29); Chloride 108 mEq/L (98-107); Glucose 71 mg/dL (70-105); Osmolality,Calculated 329 (280-300); Potassium 2.9 mEq/L (3.5-5.1); Sodium 153 mEq/L (136-145); eGFR For African Americans > 60 (> 60); eGFR For Non-African Americans 56 (> 60)
[2020-07-08 05:07] LABS: Hematocrit 34.4 % (35.3-44.9); Hemoglobin 9.8 g/dL (11.5-15.4); Immature Platelets 15.1 % (1.1-6.1); Mean Corpuscular HGB Conc 28.5 g/dL (31.6-35.5); Mean Corpuscular Hemoglobin 28.2 pg (28.0-33.3); Mean Corpuscular Volume 99.1 fL (83.0-100.0); Mean Platelet Volume 13.3 fL (9.4-12.4); Red Blood Count 3.47 M/mcL (3.82-4.97); White Blood Count 6.7 K/mcL (4.3-11.1)
[2020-07-08] MEDS: Levothyroxine 25 MCG TABLET PO SCH (05:42)
[2020-07-08] MEDS: Ascorbic Acid 500 MG TABLET PO SCH (05:42)
[2020-07-08] MEDS ORDERED: Calcium Gluconate 1gm/50mL 1 GM/50 ML BAG IVPB ONE (06:03)
[2020-07-08 06:22] LABS: Magnesium 2.3 mg/dL (1.6-2.6); Phosphorous 3.4 mg/dL (2.7-4.5)
[2020-07-08] MEDS: Miconazole 2% ointment 141 APPL/141 GM TUBE TP SCH (07:23)
[2020-07-08] MEDS: Budesonide/Formoterol 160/4.5 1 PUFF INH IH SCH ×2 (07:38→20:08)
[2020-07-08] MEDS ORDERED: Potassium Chloride 20 MEQ in D5% in Water 1,000 ML IVC SCH (08:00)
[2020-07-08] MEDS ORDERED: *HR* Dextrose 50 % in Water (Vial) 50 ML VIAL IVP ONE (08:27)
[2020-07-08] MEDS: Chlorhexidine Rinse 15 ML MOUTHWASH MM SCH ×2 (08:37→20:09)
[2020-07-08] MEDS: Pantoprazole 40 MG VIAL IVP SCH (08:38)
[2020-07-08] MEDS: Nystatin POWDER 30 GM BOTTLE TP SCH ×3 (08:52→20:09)
[2020-07-08 10:23] LABS: Bilirubin,Urine Negative (Negative); Blood,Urine Large (Negative); Clarity,Urine Turbid (Clear); Color,Urine Light-Orange (Yellow); Glucose,Urine (UA) Normal (Normal); Ketones,Urine Negative (Negative); Leukocyte Esterase,Urine Small (Negative); Nitrite,Urine Negative (Negative); PH,Urine 6.5 pH Units (5.0-8.0); Protein,Urine 30 mg/dL (Neg-Trace); RBC,Urine TNTC per hpf (0-3); Specific Gravity,Urine 1.025 (1.010-1.025); Transitional Epi Cells,Urine Few per hpf (None-Few); Urobilinogen,Urine Normal (Normal); WBC,Urine 30-50 per hpf (0-3)
[2020-07-08] MEDS: Sennosides/Docusate Sodium TABLET PO SCH ×2 (11:38→20:08)
[2020-07-08 15:16] LABS: Immature Granulocytes % 0.3 % (0-4); Red Cell Distribution Width 15.8 % (11.5-14.5)
[2020-07-08 15:17] LABS: Monocytes % 5.3 %
[2020-07-08 15:18] LABS: Hematocrit 35.8 % (35.3-44.9); Hemoglobin 10.2 g/dL (11.5-15.4); Immature Platelets 17.6 % (1.1-6.1); Lymphocytes # 0.2 K/mcL (0.6-4.6); Lymphocytes % 3.2 %; Mean Corpuscular HGB Conc 28.5 g/dL (31.6-35.5); Mean Corpuscular Hemoglobin 28.6 pg (28.0-33.3); Mean Corpuscular Volume 100.3 fL (83.0-100.0); Monocytes # 0.4 K/mcL (0.0-1.3); Neutrophils # 6.1 K/mcL (1.6-8.9); Red Blood Count 3.57 M/mcL (3.82-4.97); Segmented Neutrophils % 91.2 %; White Blood Count 6.7 K/mcL (4.3-11.1)
[2020-07-08 15:25] LABS: Platelet Count 63 K/mcL (140-400)
[2020-07-08 15:35] LABS: BUN/Creatinine Ratio 56 (6-26); Blood Urea Nitrogen 58 mg/dL (8-23); Calcium 8.2 mg/dL (8.6-10.3); Carbon Dioxide 39 mEq/L (23-29); Chloride 107 mEq/L (98-107); Glucose 74 mg/dL (70-105); Osmolality,Calculated 325 (280-300); Potassium 3.5 mEq/L (3.5-5.1); Sodium 150 mEq/L (136-145); eGFR For African Americans > 60 (> 60); eGFR For Non-African Americans 53 (> 60)
[2020-07-08] MEDS: *HR* Rivaroxaban 10 MG TABLET PO SCH (16:06)
[2020-07-08 16:23] LABS: Anisocytosis 1+ (Not Present); Hypochromasia Present (Not Present)
[2020-07-08] MEDS ORDERED: Potassium Chloride Elixir 20 MEQ/15 ML UDC PO ONE (17:22)
[2020-07-08] MEDS: Acetaminophen 325 MG TABLET PO PRN (20:08)
[2020-07-08] MEDS: Latanoprost 2.5 ML BOTTLE BOTH EYES SCH (20:09)
[2020-07-09] MEDS: Dexmedetomidine HCl 400 MCG/100 ML MLS IVC SCH ×3 (03:09→18:11)
[2020-07-09] MEDS: Artificial Tears SOLN 15 ML BOTTLE BOTH EYES SCH ×5 (03:09→21:15)
[2020-07-09] MEDS: Insulin LISPRO 300 UNITS/3 ML VIAL SQ SCH ×6 (03:20→21:18)
[2020-07-09 03:31] LABS: Hematocrit 33.9 % (35.3-44.9); Hemoglobin 9.7 g/dL (11.5-15.4); Immature Platelets 17.5 % (1.1-6.1); Mean Corpuscular HGB Conc 28.6 g/dL (31.6-35.5); Mean Corpuscular Hemoglobin 28.5 pg (28.0-33.3); Mean Corpuscular Volume 99.7 fL (83.0-100.0); Mean Platelet Volume 13.4 fL (9.4-12.4); Red Cell Distribution Width 15.7 % (11.5-14.5); White Blood Count 7.2 K/mcL (4.3-11.1)
[2020-07-09] MEDS: Ipratropium/Albuterol Neb 3 ML IH SCH ×6 (03:31→23:33)
[2020-07-09 03:32] LABS: Platelet Count 55 K/mcL (140-400)
[2020-07-09 03:42] LABS: VBG Ionized Calcium 1.06 mmol/L (1.15-1.35)
[2020-07-09 03:52] LABS: Magnesium 2.4 mg/dL (1.6-2.6); Phosphorous 3.9 mg/dL (2.7-4.5)
[2020-07-09] MEDS: Levothyroxine 25 MCG TABLET PO SCH (05:31)
[2020-07-09] MEDS: Ascorbic Acid 500 MG TABLET PO SCH (05:31)
[2020-07-09 05:36] LABS: BUN/Creatinine Ratio 56 (6-26); Blood Urea Nitrogen 56 mg/dL (8-23); Calcium 7.8 mg/dL (8.6-10.3); Carbon Dioxide 34 mEq/L (23-29); Chloride 108 mEq/L (98-107); Glucose 159 mg/dL (70-105); Osmolality,Calculated 329 (280-300); Potassium 3.6 mEq/L (3.5-5.1); Sodium 150 mEq/L (136-145); eGFR For African Americans > 60 (> 60); eGFR For Non-African Americans 56 (> 60)
[2020-07-09] MEDS ORDERED: Calcium Gluconate 1gm/50mL 1 GM/50 ML BAG IVPB ONE (05:44)
[2020-07-09] MEDS: Budesonide/Formoterol 160/4.5 1 PUFF INH IH SCH ×2 (08:01→19:38)
[2020-07-09] MEDS: Piperacillin/Tazobactam 3.375 GM in 0.9 % Sodium Chloride Mini Bag 100 ML IVPB SCH ×2 (08:05→17:37)
[2020-07-09] MEDS: Chlorhexidine Rinse 15 ML MOUTHWASH MM SCH ×2 (08:05→21:18)
[2020-07-09] MEDS: MethylPREDNISolone 40 MG/ML VIAL IVP SCH (08:06)
[2020-07-09 08:08] LABS: Immature Granulocytes % 0.3 % (0-4); Lymphocytes # 0.5 K/mcL (0.6-4.6); Lymphocytes % 6.6 %; Monocytes # 0.7 K/mcL (0.0-1.3); Monocytes % 9.2 %; Segmented Neutrophils % 83.9 %
[2020-07-09] MEDS: Nystatin POWDER 30 GM BOTTLE TP SCH ×3 (08:08→21:18)
[2020-07-09] MEDS: Miconazole 2% ointment 141 APPL/141 GM TUBE TP SCH (08:09)
[2020-07-09] MEDS: Acetaminophen 325 MG TABLET PO PRN (09:11)
[2020-07-09] MEDS: Sennosides/Docusate Sodium TABLET PO SCH ×2 (09:11→21:18)
[2020-07-09] MEDS ORDERED: Furosemide 40 MG/4 ML VIAL IVP ONE (10:49)
[2020-07-09 15:30] LABS: VBG Ionized Calcium 1.17 mmol/L (1.15-1.35)
[2020-07-09] MEDS: *HR* Rivaroxaban 10 MG TABLET PO SCH (17:55)
[2020-07-09] MEDS: Latanoprost 2.5 ML BOTTLE BOTH EYES SCH (21:14)
[2020-07-10] MEDS: Piperacillin/Tazobactam 3.375 GM in 0.9 % Sodium Chloride Mini Bag 100 ML IVPB SCH ×3 (00:07→17:06)
[2020-07-10] MEDS: Artificial Tears SOLN 15 ML BOTTLE BOTH EYES SCH ×6 (00:08→20:46)
[2020-07-10] MEDS: Dexmedetomidine HCl 400 MCG/100 ML MLS IVC SCH ×3 (03:09→20:37)
[2020-07-10] MEDS: Ipratropium/Albuterol Neb 3 ML IH SCH ×5 (03:29→20:06)
[2020-07-10 03:44] LABS: Hemoglobin 9.5 g/dL (11.5-15.4)
[2020-07-10 03:45] LABS: Hematocrit 34.3 % (35.3-44.9); Immature Platelets 21.7 % (1.1-6.1); Mean Corpuscular HGB Conc 27.7 g/dL (31.6-35.5); Mean Corpuscular Hemoglobin 28.2 pg (28.0-33.3); Mean Corpuscular Volume 101.8 fL (83.0-100.0); Red Blood Count 3.37 M/mcL (3.82-4.97); Red Cell Distribution Width 15.4 % (11.5-14.5); White Blood Count 8.3 K/mcL (4.3-11.1)
[2020-07-10 03:48] LABS: Platelet Count 65 K/mcL (140-400)
[2020-07-10 03:57] LABS: Magnesium 2.3 mg/dL (1.6-2.6); Phosphorous 4.6 mg/dL (2.7-4.5)
[2020-07-10] MEDS: Levothyroxine 25 MCG TABLET PO SCH (06:19)
[2020-07-10] MEDS: Ascorbic Acid 500 MG TABLET PO SCH (06:19)
[2020-07-10] MEDS: Budesonide/Formoterol 160/4.5 1 PUFF INH IH SCH ×2 (07:31→20:06)
[2020-07-10] MEDS: Nystatin POWDER 30 GM BOTTLE TP SCH ×3 (09:07→20:48)
[2020-07-10] MEDS: MethylPREDNISolone 40 MG/ML VIAL IVP SCH (09:56)
[2020-07-10] MEDS: Insulin LISPRO 300 UNITS/3 ML VIAL SQ SCH ×4 (10:46→21:12)
[2020-07-10 10:47] LABS: Calcium 8.3 mg/dL (8.6-10.3); Potassium 3.8 mEq/L (3.5-5.1)
[2020-07-10] MEDS: Chlorhexidine Rinse 15 ML MOUTHWASH MM SCH ×2 (12:05→20:42)
[2020-07-10] MEDS: Sennosides/Docusate Sodium TABLET PO SCH ×2 (12:05→20:42)
[2020-07-10] MEDS ORDERED: Furosemide 40 MG/4 ML VIAL IVP ONE (16:14)
[2020-07-10] MEDS: Miconazole 2% ointment 141 APPL/141 GM TUBE TP SCH (16:24)
[2020-07-10] MEDS: *HR* Rivaroxaban 10 MG TABLET PO SCH (17:08)
[2020-07-10] MEDS: Latanoprost 2.5 ML BOTTLE BOTH EYES SCH (20:45)
[2020-07-11] MEDS: Ipratropium/Albuterol Neb 3 ML IH SCH ×7 (00:04→23:59)
[2020-07-11] MEDS: Artificial Tears SOLN 15 ML BOTTLE BOTH EYES SCH ×6 (00:24→20:54)
[2020-07-11] MEDS: Dexmedetomidine HCl 400 MCG/100 ML MLS IVC SCH ×2 (04:59→16:57)
[2020-07-11 05:04] LABS: Basophils % 0.1 %; Immature Granulocytes % 0.4 % (0-4)
[2020-07-11 05:06] LABS: VBG Ionized Calcium 1.13 mmol/L (1.15-1.35)
[2020-07-11 05:06] LABS: Hematocrit 33.3 % (35.3-44.9); Hemoglobin 9.4 g/dL (11.5-15.4); Immature Platelets 19.4 % (1.1-6.1); Lymphocytes # 0.7 K/mcL (0.6-4.6); Lymphocytes % 4.9 %; Mean Corpuscular HGB Conc 28.2 g/dL (31.6-35.5); Mean Corpuscular Hemoglobin 28.4 pg (28.0-33.3); Mean Corpuscular Volume 100.6 fL (83.0-100.0); Mean Platelet Volume 13.9 fL (9.4-12.4); Monocytes % 7.2 %; Neutrophils # 12.4 K/mcL (1.6-8.9); Red Blood Count 3.31 M/mcL (3.82-4.97); Red Cell Distribution Width 15.2 % (11.5-14.5); Segmented Neutrophils % 87.4 %; White Blood Count 14.2 K/mcL (4.3-11.1)
[2020-07-11 05:07] LABS: Platelet Count 80 K/mcL (140-400)
[2020-07-11] MEDS: Levothyroxine 25 MCG TABLET PO SCH (05:14)
[2020-07-11] MEDS: Ascorbic Acid 500 MG TABLET PO SCH (05:14)
[2020-07-11] MEDS: Acetaminophen 325 MG TABLET PO PRN (05:15)
[2020-07-11] MEDS: Ondansetron 4 MG/2 ML VIAL IVP PRN (05:15)
[2020-07-11 05:28] LABS: Hypochromasia Present (Not Present); Platelet Estimate Decreased (Normal)
[2020-07-11 05:37] LABS: Albumin/Globulin Ratio 1.1 (1.1-2.2); Bilirubin,Total 0.7 mg/dL (0.3-1.0); Calcium 8.7 mg/dL (8.6-10.3); Globulin 2.7 g/dL (2.4-3.5); Magnesium 2.5 mg/dL (1.6-2.6); Phosphorous 4.9 mg/dL (2.7-4.5); Potassium 3.8 mEq/L (3.5-5.1); Total Protein 5.7 g/dL (6.4-8.9)
[2020-07-11] MEDS: Budesonide/Formoterol 160/4.5 1 PUFF INH IH SCH ×2 (07:44→19:56)
[2020-07-11] MEDS: Insulin LISPRO 300 UNITS/3 ML VIAL SQ SCH ×4 (10:55→20:32)
[2020-07-11] MEDS: Chlorhexidine Rinse 15 ML MOUTHWASH MM SCH ×2 (10:59→20:40)
[2020-07-11] MEDS: Sennosides/Docusate Sodium TABLET PO SCH ×2 (11:00→20:40)
[2020-07-11] MEDS: MethylPREDNISolone 40 MG/ML VIAL IVP SCH (11:03)
[2020-07-11] MEDS: Nystatin POWDER 30 GM BOTTLE TP SCH ×3 (18:27→20:41)
[2020-07-11] MEDS: Miconazole 2% ointment 141 APPL/141 GM TUBE TP SCH (18:27)
[2020-07-11] MEDS: *HR* Rivaroxaban 10 MG TABLET PO SCH (18:29)
[2020-07-11] MEDS: Latanoprost 2.5 ML BOTTLE BOTH EYES SCH (20:54)
[2020-07-12] MEDS: Artificial Tears SOLN 15 ML BOTTLE BOTH EYES SCH ×6 (01:19→21:30)
[2020-07-12 03:25] LABS: Hemoglobin 8.6 g/dL (11.5-15.4); Red Cell Distribution Width 15.3 % (11.5-14.5)
[2020-07-12 03:27] LABS: Hematocrit 30.7 % (35.3-44.9); Immature Platelets 19.2 % (1.1-6.1); Red Blood Count 3.07 M/mcL (3.82-4.97); White Blood Count 12.4 K/mcL (4.3-11.1)
[2020-07-12 03:30] LABS: Platelet Count 76 K/mcL (140-400)
[2020-07-12 03:34] LABS: Calcium 8.6 mg/dL (8.6-10.3); Potassium 4.1 mEq/L (3.5-5.1)
[2020-07-12 03:37] LABS: Bacteria,Urine Few per hpf (None-Few); Bilirubin,Urine Negative (Negative); Blood,Urine Large (Negative); Clarity,Urine Clear (Clear); Color,Urine Light-Brown (Yellow); Glucose,Urine (UA) Normal (Normal); Ketones,Urine 10 mg/dL (Negative); Leukocyte Esterase,Urine Small (Negative); Mucus,Urine Few per lpf (None-Few); Nitrite,Urine Negative (Negative); PH,Urine 6.5 pH Units (5.0-8.0); Protein,Urine 70 mg/dL (Neg-Trace); RBC,Urine TNTC per hpf (0-3); Specific Gravity,Urine 1.022 (1.010-1.025); Urobilinogen,Urine Normal (Normal); WBC,Urine TNTC per hpf (0-3)
[2020-07-12] MEDS: Ipratropium/Albuterol Neb 3 ML IH SCH ×5 (03:57→19:52)
[2020-07-12 06:50] LABS: ABG Base Excess 6 mEq/L (-2 to 3); ABG HCO3 34 mEq/L (21-27); ABG Oxygen Saturation 97 % (95-98); ABG PCO2 64 mmHg (35-45); ABG PH 7.33 pH Units (7.32-7.45); ABG PO2 101 mmHg (85-104); ABG TCO2 36 mEq/L (20-26)
[2020-07-12] MEDS: Ascorbic Acid 500 MG TABLET PO SCH (06:52)
[2020-07-12] MEDS: Levothyroxine 25 MCG TABLET PO SCH (06:52)
[2020-07-12] MEDS: Budesonide/Formoterol 160/4.5 1 PUFF INH IH SCH ×2 (07:40→19:53)
[2020-07-12] MEDS ORDERED: Furosemide 20 MG/2 ML VIAL IVP SCH (09:00)
[2020-07-12] MEDS: Insulin DETEMIR 100 UNIT/ML X5UNITS SQ SCH ×2 (09:25→21:30)
[2020-07-12] MEDS: Chlorhexidine Rinse 15 ML MOUTHWASH MM SCH ×2 (09:26→21:29)
[2020-07-12] MEDS: MethylPREDNISolone 40 MG/ML VIAL IVP SCH (09:26)
[2020-07-12] MEDS: Insulin LISPRO 300 UNITS/3 ML VIAL SQ SCH ×4 (09:28→21:18)
[2020-07-12] MEDS: Miconazole 2% ointment 141 APPL/141 GM TUBE TP SCH (09:38)
[2020-07-12] MEDS: Sennosides/Docusate Sodium TABLET PO SCH ×2 (09:52→21:29)
[2020-07-12] MEDS: Nystatin POWDER 30 GM BOTTLE TP SCH ×3 (10:02→21:31)
[2020-07-12] MEDS: Latanoprost 2.5 ML BOTTLE BOTH EYES SCH (22:15)
[2020-07-13] MEDS: Ipratropium/Albuterol Neb 3 ML IH SCH ×7 (00:05→23:59)
[2020-07-13] MEDS: Artificial Tears SOLN 15 ML BOTTLE BOTH EYES SCH ×6 (01:20→22:13)
[2020-07-13 05:09] LABS: Basophils % 0.1 %; Hemoglobin 8.4 g/dL (11.5-15.4); Immature Granulocytes % 0.5 % (0-4)
[2020-07-13 05:11] LABS: Hematocrit 29.7 % (35.3-44.9); Immature Platelets 18.6 % (1.1-6.1); Lymphocytes # 0.9 K/mcL (0.6-4.6); Lymphocytes % 6.3 %; Mean Corpuscular HGB Conc 28.3 g/dL (31.6-35.5); Mean Corpuscular Hemoglobin 28.7 pg (28.0-33.3); Mean Corpuscular Volume 101.4 fL (83.0-100.0); Mean Platelet Volume 14.2 fL (9.4-12.4); Monocytes % 6.5 %; Neutrophils # 12.9 K/mcL (1.6-8.9); Red Blood Count 2.93 M/mcL (3.82-4.97); Red Cell Distribution Width 15.9 % (11.5-14.5); Segmented Neutrophils % 86.6 %; White Blood Count 14.9 K/mcL (4.3-11.1)
[2020-07-13 05:18] LABS: Platelet Count 94 K/mcL (140-400)
[2020-07-13 05:23] LABS: Calcium 9.1 mg/dL (8.6-10.3); Magnesium 2.6 mg/dL (1.6-2.6); Phosphorous 3.6 mg/dL (2.7-4.5); Potassium 3.7 mEq/L (3.5-5.1)
[2020-07-13 05:46] LABS: Hypochromasia Present (Not Present); Platelet Estimate Decreased (Normal)
[2020-07-13] MEDS: Levothyroxine 25 MCG TABLET PO SCH (06:37)
[2020-07-13] MEDS: Ascorbic Acid 500 MG TABLET PO SCH (06:37)
[2020-07-13] MEDS: Budesonide/Formoterol 160/4.5 1 PUFF INH IH SCH ×2 (07:22→19:41)
[2020-07-13] MEDS: Sennosides/Docusate Sodium TABLET PO SCH ×2 (07:36→22:15)
[2020-07-13] MEDS: Chlorhexidine Rinse 15 ML MOUTHWASH MM SCH ×2 (07:36→22:14)
[2020-07-13] MEDS: Miconazole 2% ointment 141 APPL/141 GM TUBE TP SCH (07:46)
[2020-07-13] MEDS: MethylPREDNISolone 40 MG/ML VIAL IVP SCH (07:46)
[2020-07-13] MEDS: Nystatin POWDER 30 GM BOTTLE TP SCH ×3 (07:46→22:15)
[2020-07-13] MEDS: Insulin DETEMIR 100 UNIT/ML X5UNITS SQ SCH (07:47)
[2020-07-13] MEDS: Insulin LISPRO 300 UNITS/3 ML VIAL SQ SCH ×4 (07:47→22:14)
[2020-07-13] MEDS ORDERED: Insulin LISPRO 300 UNITS/3 ML VIAL SQ SCH (08:15)
[2020-07-13] MEDS: Ondansetron 4 MG/2 ML VIAL IVP PRN (11:52)
[2020-07-13] MEDS: *HR* Rivaroxaban 10 MG TABLET PO SCH (15:33)
[2020-07-13] MEDS: *HR* Metoprolol 5 MG/5 ML VIAL IVP PRN (20:09)
[2020-07-13] MEDS: Latanoprost 2.5 ML BOTTLE BOTH EYES SCH (22:15)
[2020-07-14] MEDS: Insulin LISPRO 300 UNITS/3 ML VIAL SQ SCH ×4 (00:21→20:35)
[2020-07-14] MEDS: Artificial Tears SOLN 15 ML BOTTLE BOTH EYES SCH ×7 (00:22→20:22)
[2020-07-14] MEDS: Ipratropium/Albuterol Neb 3 ML IH SCH ×6 (03:48→23:45)
[2020-07-14] MEDS: Levothyroxine 25 MCG TABLET PO SCH (05:41)
[2020-07-14] MEDS: Ascorbic Acid 500 MG TABLET PO SCH (05:41)
[2020-07-14 07:38] LABS: Vancomycin,Trough 17 mcg/mL (5-10)
[2020-07-14] MEDS: Budesonide/Formoterol 160/4.5 1 PUFF INH IH SCH ×2 (07:43→20:12)
[2020-07-14 08:32] LABS: BUN/Creatinine Ratio 62 (6-26); Blood Urea Nitrogen 67 mg/dL (8-23); Carbon Dioxide 37 mEq/L (23-29); Chloride 110 mEq/L (98-107); Glucose 189 mg/dL (70-105); Magnesium 2.7 mg/dL (1.6-2.6); Osmolality,Calculated 342 (280-300); Phosphorous 2.9 mg/dL (2.7-4.5); Potassium 3.6 mEq/L (3.5-5.1); Sodium 154 mEq/L (136-145); eGFR For African Americans > 60 (> 60); eGFR For Non-African Americans 51 (> 60)
[2020-07-14 08:32] LABS: Basophils % 0.1 %; Hemoglobin 8.3 g/dL (11.5-15.4)
[2020-07-14 08:34] LABS: Hematocrit 29.7 % (35.3-44.9); Immature Granulocytes % 0.6 % (0-4); Lymphocytes % 7.5 %; Mean Corpuscular HGB Conc 27.9 g/dL (31.6-35.5); Mean Corpuscular Hemoglobin 28.5 pg (28.0-33.3); Mean Corpuscular Volume 102.1 fL (83.0-100.0); Monocytes # 0.8 K/mcL (0.0-1.3); Monocytes % 6.7 %; Neutrophils # 10.7 K/mcL (1.6-8.9); Red Blood Count 2.91 M/mcL (3.82-4.97); Red Cell Distribution Width 16.1 % (11.5-14.5); Segmented Neutrophils % 85.1 %; White Blood Count 12.6 K/mcL (4.3-11.1)
[2020-07-14 08:35] LABS: Platelet Count 99 K/mcL (140-400)
[2020-07-14 08:51] LABS: Platelet Estimate Slight Decrease (Normal)
[2020-07-14 08:52] LABS: Poikilocytosis 1+ (Not Present)
[2020-07-14 08:53] LABS: Anisocytosis 1+ (Not Present); Hypochromasia Present (Not Present)
[2020-07-14] MEDS ORDERED: D5% in 0.45% NACL 500 ML IVC SCH (09:00)
[2020-07-14] MEDS: Miconazole 2% ointment 141 APPL/141 GM TUBE TP SCH (10:50)
[2020-07-14] MEDS: Nystatin POWDER 30 GM BOTTLE TP SCH ×3 (10:51→20:18)
[2020-07-14] MEDS: Chlorhexidine Rinse 15 ML MOUTHWASH MM SCH ×2 (10:51→21:23)
[2020-07-14] MEDS: Sennosides/Docusate Sodium TABLET PO SCH ×2 (10:51→21:23)
[2020-07-14] MEDS: Ondansetron 4 MG/2 ML VIAL IVP PRN ×2 (10:56→20:00)
[2020-07-14] MEDS: MethylPREDNISolone 40 MG/ML VIAL IVP SCH (10:56)
[2020-07-14] MEDS: *HR* Metoprolol 5 MG/5 ML VIAL IVP PRN (13:29)
[2020-07-14] MEDS: *HR* Rivaroxaban 10 MG TABLET PO SCH (16:41)
[2020-07-14] MEDS: *HR* Metoprolol 5 MG/5 ML VIAL IVP SCH (16:43)
[2020-07-14] MEDS ORDERED: *HR* Metoprolol 5 MG/5 ML VIAL IVP ONE (19:41)
[2020-07-14] MEDS: Latanoprost 2.5 ML BOTTLE BOTH EYES SCH (20:22)
[2020-07-15] MEDS ORDERED: *HR* Metoprolol 5 MG/5 ML VIAL IVP ONE ×2 (00:04→01:31)
[2020-07-15] MEDS: *HR* Metoprolol 5 MG/5 ML VIAL IVP SCH ×4 (00:06→18:09)
[2020-07-15] MEDS: Insulin LISPRO 300 UNITS/3 ML VIAL SQ SCH ×4 (00:24→18:09)
[2020-07-15] MEDS: Artificial Tears SOLN 15 ML BOTTLE BOTH EYES SCH ×6 (00:25→21:43)
[2020-07-15 02:51] LABS: Nucleated Red Blood Cells 0.2 /100 WBC (0)
[2020-07-15 02:54] LABS: Basophils % 0.2 %; Hematocrit 29.4 % (35.3-44.9); Hemoglobin 8.2 g/dL (11.5-15.4); Immature Granulocytes % 0.9 % (0-4); Immature Platelets 11.6 % (1.1-6.1); Lymphocytes # 0.8 K/mcL (0.6-4.6); Lymphocytes % 6.2 %; Mean Corpuscular HGB Conc 27.9 g/dL (31.6-35.5); Mean Corpuscular Hemoglobin 28.9 pg (28.0-33.3); Mean Corpuscular Volume 103.5 fL (83.0-100.0); Monocytes # 0.7 K/mcL (0.0-1.3); Monocytes % 5.6 %; Neutrophils # 10.9 K/mcL (1.6-8.9); Platelet Count 112 K/mcL (140-400); Red Blood Count 2.84 M/mcL (3.82-4.97); Red Cell Distribution Width 16.5 % (11.5-14.5); Segmented Neutrophils % 87.1 %; White Blood Count 12.5 K/mcL (4.3-11.1)
[2020-07-15 03:04] LABS: BUN/Creatinine Ratio 60 (6-26); Blood Urea Nitrogen 65 mg/dL (8-23); Calcium 8.7 mg/dL (8.6-10.3); Carbon Dioxide 33 mEq/L (23-29); Chloride 112 mEq/L (98-107); Glucose 203 mg/dL (70-105); Magnesium 2.7 mg/dL (1.6-2.6); Osmolality,Calculated 344 (280-300); Phosphorous 2.7 mg/dL (2.7-4.5); Potassium 3.6 mEq/L (3.5-5.1); Sodium 155 mEq/L (136-145); eGFR For African Americans > 60 (> 60); eGFR For Non-African Americans 50 (> 60)
[2020-07-15] MEDS: Ipratropium/Albuterol Neb 3 ML IH SCH ×6 (03:50→23:36)
[2020-07-15 04:26] LABS: Anisocytosis 1+ (Not Present); Hypochromasia Present (Not Present); Platelet Estimate Slight Decrease (Normal)
[2020-07-15] MEDS ORDERED: Acetaminophen IV 1,000 MG/100 ML INFUS..BTL IVPB ONE (05:05)
[2020-07-15] MEDS: Levothyroxine 25 MCG TABLET PO SCH (06:08)
[2020-07-15] MEDS: Ascorbic Acid 500 MG TABLET PO SCH (06:08)
[2020-07-15] MEDS ORDERED: D5% in Water 500 ML IVC SCH (07:30)
[2020-07-15] MEDS: Budesonide/Formoterol 160/4.5 1 PUFF INH IH SCH ×2 (07:37→19:33)
[2020-07-15] MEDS: MethylPREDNISolone 40 MG/ML VIAL IVP SCH (08:26)
[2020-07-15] MEDS: Chlorhexidine Rinse 15 ML MOUTHWASH MM SCH ×2 (08:27→21:41)
[2020-07-15] MEDS: Miconazole 2% ointment 141 APPL/141 GM TUBE TP SCH (08:27)
[2020-07-15] MEDS: Sennosides/Docusate Sodium TABLET PO SCH ×2 (08:28→21:41)
[2020-07-15] MEDS: Nystatin POWDER 30 GM BOTTLE TP SCH ×3 (08:28→21:42)
[2020-07-15 09:29] LABS: ABG Base Excess 12 mEq/L (-2 to 3); ABG HCO3 40 mEq/L (21-27); ABG Oxygen Saturation 89 % (95-98); ABG PCO2 79 mmHg (35-45); ABG PH 7.32 pH Units (7.32-7.45); ABG PO2 65 mmHg (85-104); ABG TCO2 43 mEq/L (20-26); Blood Gas VT 450 cc
[2020-07-15] MEDS: *HR* Rivaroxaban 10 MG TABLET PO SCH (18:09)
[2020-07-15] MEDS: Latanoprost 2.5 ML BOTTLE BOTH EYES SCH (22:35)
[2020-07-16] MEDS: *HR* Metoprolol 5 MG/5 ML VIAL IVP SCH ×5 (00:04→23:49)
[2020-07-16] MEDS: Insulin LISPRO 300 UNITS/3 ML VIAL SQ SCH ×5 (00:05→23:43)
[2020-07-16] MEDS: Artificial Tears SOLN 15 ML BOTTLE BOTH EYES SCH ×4 (00:13→12:40)
[2020-07-16] MEDS: Ipratropium/Albuterol Neb 3 ML IH SCH ×5 (03:58→20:15)
[2020-07-16 04:02] LABS: Hematocrit 30.4 % (35.3-44.9); Hemoglobin 8.3 g/dL (11.5-15.4); Immature Platelets 9.6 % (1.1-6.1); Lymphocytes # 1.1 K/mcL (0.6-4.6); Lymphocytes % 10.7 %; Mean Corpuscular HGB Conc 27.3 g/dL (31.6-35.5); Mean Corpuscular Hemoglobin 29.1 pg (28.0-33.3); Mean Corpuscular Volume 106.7 fL (83.0-100.0); Mean Platelet Volume 13.2 fL (9.4-12.4); Monocytes # 0.9 K/mcL (0.0-1.3); Monocytes % 8.4 %; Neutrophils # 8.3 K/mcL (1.6-8.9); Nucleated Red Blood Cells 0.4 /100 WBC (0); Platelet Count 95 K/mcL (140-400); Red Blood Count 2.85 M/mcL (3.82-4.97); Segmented Neutrophils % 79.9 %; White Blood Count 10.4 K/mcL (4.3-11.1)
[2020-07-16 04:18] LABS: Calcium 8.8 mg/dL (8.6-10.3); Magnesium 2.8 mg/dL (1.6-2.6); Phosphorous 2.7 mg/dL (2.7-4.5); Potassium 3.8 mEq/L (3.5-5.1)
[2020-07-16 05:24] LABS: Anisocytosis 1+ (Not Present); Hypochromasia Present (Not Present); Ovalocytes 1+ (Not Present); Platelet Estimate Slight Decrease (Normal); Polychromasia 1+ (Not Present)
[2020-07-16] MEDS: Ascorbic Acid 500 MG TABLET PO SCH (05:56)
[2020-07-16] MEDS: Budesonide/Formoterol 160/4.5 1 PUFF INH IH SCH ×2 (07:49→20:16)
[2020-07-16] MEDS ORDERED: Levothyroxine Sodium 100 MCG VIAL IVP SCH (09:00)
[2020-07-16] MEDS: Chlorhexidine Rinse 15 ML MOUTHWASH MM SCH (09:42)
[2020-07-16] MEDS: Sennosides/Docusate Sodium TABLET PO SCH ×2 (09:43→21:42)
[2020-07-16] MEDS: MethylPREDNISolone 40 MG/ML VIAL IVP SCH (09:43)
[2020-07-16] MEDS: Miconazole 2% ointment 141 APPL/141 GM TUBE TP SCH (09:44)
[2020-07-16] MEDS: Nystatin POWDER 30 GM BOTTLE TP SCH ×3 (09:44→21:43)
[2020-07-16] MEDS ORDERED: D5% in Water 1,000 ML IVC SCH (15:00)
[2020-07-16] MEDS: *HR* Rivaroxaban 10 MG TABLET PO SCH (17:12)
[2020-07-16] MEDS: Latanoprost 2.5 ML BOTTLE BOTH EYES SCH (21:42)
[2020-07-16] MEDS: Doxycycline 100 MG CAPSULE PO SCH (21:42)
[2020-07-17] MEDS: Ipratropium/Albuterol Neb 3 ML IH SCH ×5 (00:06→15:31)
[2020-07-17 04:56] LABS: Hematocrit 30.4 % (35.3-44.9); Hemoglobin 8.3 g/dL (11.5-15.4); Mean Corpuscular HGB Conc 27.3 g/dL (31.6-35.5); Mean Corpuscular Hemoglobin 29.5 pg (28.0-33.3); Mean Corpuscular Volume 108.2 fL (83.0-100.0); Mean Platelet Volume 13.5 fL (9.4-12.4); Red Blood Count 2.81 M/mcL (3.82-4.97); Red Cell Distribution Width 16.9 % (11.5-14.5); White Blood Count 9.3 K/mcL (4.3-11.1)
[2020-07-17 05:10] LABS: BUN/Creatinine Ratio 61 (6-26); Blood Urea Nitrogen 65 mg/dL (8-23); Calcium 8.8 mg/dL (8.6-10.3); Carbon Dioxide 38 mEq/L (23-29); Chloride 112 mEq/L (98-107); Glucose 191 mg/dL (70-105); Osmolality,Calculated 346 (280-300); Sodium 156 mEq/L (136-145); eGFR For African Americans > 60 (> 60); eGFR For Non-African Americans 52 (> 60)
[2020-07-17] MEDS: Insulin LISPRO 300 UNITS/3 ML VIAL SQ SCH ×3 (05:44→17:08)
[2020-07-17] MEDS: *HR* Metoprolol 5 MG/5 ML VIAL IVP SCH (06:02)
[2020-07-17] MEDS: Levothyroxine 25 MCG TABLET PO SCH (06:06)
[2020-07-17] MEDS: Ascorbic Acid 500 MG TABLET PO SCH (06:06)
[2020-07-17] MEDS: Budesonide/Formoterol 160/4.5 1 PUFF INH IH SCH (07:42)
[2020-07-17] MEDS: Doxycycline 100 MG CAPSULE PO SCH (08:28)
[2020-07-17] MEDS: MethylPREDNISolone 40 MG/ML VIAL IVP SCH (08:28)
[2020-07-17] MEDS: Sennosides/Docusate Sodium TABLET PO SCH ×2 (08:28→21:38)
[2020-07-17] MEDS: Nystatin POWDER 30 GM BOTTLE TP SCH ×3 (08:29→22:01)
[2020-07-17] MEDS: Miconazole 2% ointment 141 APPL/141 GM TUBE TP SCH (08:30)
[2020-07-17] MEDS: Ondansetron 4 MG/2 ML VIAL IVP PRN (10:13)
[2020-07-17] MEDS ORDERED: Bisacodyl 10 MG RECTAL SUPPOSITORY RC PRN (11:11)
[2020-07-17] MEDS ORDERED: *HR* LORazepam 2 MG/ML VIAL IVP PRN (13:37)
[2020-07-17] MEDS ORDERED: Scopolamine Patch 1.5 MG PATCH.TD72 TD SCH (13:45)
[2020-07-17] MEDS: Latanoprost 2.5 ML BOTTLE BOTH EYES SCH (22:02)
[2020-07-18] MEDS: Insulin LISPRO 300 UNITS/3 ML VIAL SQ SCH ×4 (00:48→17:44)
[2020-07-18] MEDS: Levothyroxine 25 MCG TABLET PO SCH (05:06)
[2020-07-18 07:26] VITALS: BP 85/59
[2020-07-18] MEDS: Miconazole 2% ointment 141 APPL/141 GM TUBE TP SCH (08:18)
[2020-07-18] MEDS: Nystatin POWDER 30 GM BOTTLE TP SCH ×3 (08:19→20:29)
[2020-07-18] MEDS: Sennosides/Docusate Sodium TABLET PO SCH ×2 (08:20→20:29)
[2020-07-18] MEDS: Latanoprost 2.5 ML BOTTLE BOTH EYES SCH (20:29)
== END 2020-07-18 21:49 | disposition expired | DRG 207 ==
LOC: EMEROOARM 23:06 → 2ANU 23:06 → SUATTDRO 06-28 02:20 → 2ANU 06-28 02:50 → SUATTDRO 06-28 13:38 → ICNU 07-01 11:24 → 2NNU 07-09 10:46 → 2ANU 07-13 20:19
PROVIDERS: ADMIT Internal Medicine; ATTEND Family Medicine